=== PATIENT | female | born 1950 | race Caucasian/White ===

== ENCOUNTER 2021-05-06 03:47 | Outpatient (RCR) | payer OTHER, SELFPAY ==
[2021-04-22 08:14] LABS: Abs Immature Grans 0.01 10^3/uL (0.0-0.06); Absolute Basophil Count 0.04 10^3/uL (0.0-0.2); Absolute Eosinophil Count 0.17 10^3/uL (0.0-0.7); Absolute Lymphocyte Count 1.16 10^3/uL (1.2-3.4); Absolute Monocyte Count 0.36 10^3/uL (0.1-0.8); Absolute Neutrophil Count 2.11 10^3/uL (1.2-6.7); Eosinophils % 4.4; HGB 10.5 g/dL (11.2-15.7); Immature Grans % 0.3; Lymphocytes % 30.1; MCH 30.1 pg (27.0-33.0); MCHC 32.8 % (32.0-36.0); MCV 91.7 fL (80-95); MPV 10.1 fL (8.0-11.0); Monocytes % 9.4; Neutrophils % 54.8; Nucleated RBC 0 %; Platelet Count 170 10^3/uL (130-400); RBC 3.49 10^6/uL (3.93-5.22); RDW 13.9 % (11.7-14.6); RDW-SD 46.5 fL; WBC 3.85 10^3/uL (4.4-10.8)
[2021-04-22] MEDS: Normal Saline Flush 10 ML SYR IVP (08:16)
[2021-04-22 08:35] LABS: ALT 22 U/L (14-59); AST 24 U/L (15-37); Albumin 2.6 g/dL (3.4-5.0); Alkaline Phosphatase 84 U/L (46-116); Anion Gap 6.5 mmol/L (3-11); BUN 18 mg/dL (7-18); Bilirubin, Total 0.4 mg/dL (0.2-1.0); CO2 29.5 mmol/L (21.0-32.0); CREATININE 1.1 mg/dL (0.55-1.02); Calcium 8.1 mg/dL (8.5-10.1); Chloride 105 mmol/L (98-107); Estimated GFR 48.69 (mL/min/1.73m2); Glucose 106 mg/dL (74-106); LDH 144 U/L (81-234); Potassium 3.8 mmol/L (3.5-5.1); Sodium 141 mmol/L (136-145); Total Protein 5.2 g/dL (6.4-8.2)
[2021-05-06] MEDS: Normal Saline Flush 10 ML SYR IVP (09:25)
[2021-05-06] MEDS: Heparin 500 UNITS/5 ML SYRINGE (09:25)
[2021-05-06 09:41] LABS: Abs Immature Grans 0.05 10^3/uL (0.0-0.06); Absolute Basophil Count 0.05 10^3/uL (0.0-0.2); Absolute Eosinophil Count 0.12 10^3/uL (0.0-0.7); Absolute Lymphocyte Count 0.63 10^3/uL (1.2-3.4); Absolute Monocyte Count 0.41 10^3/uL (0.1-0.8); Absolute Neutrophil Count 4.78 10^3/uL (1.2-6.7); Basophils % 0.8; HCT 31.9 % (36.0-46.0); HGB 10.4 g/dL (11.2-15.7); Immature Grans % 0.8; Lymphocytes % 10.4; MCH 30.1 pg (27.0-33.0); MCHC 32.6 % (32.0-36.0); MCV 92.5 fL (80-95); MPV 10.3 fL (8.0-11.0); Monocytes % 6.8; Neutrophils % 79.2; Nucleated RBC 0 %; Platelet Count 214 10^3/uL (130-400); RBC 3.45 10^6/uL (3.93-5.22); RDW 14.3 % (11.7-14.6); RDW-SD 47.6 fL; WBC 6.04 10^3/uL (4.4-10.8)
[2021-05-06 10:00] LABS: ALT 15 U/L (14-59); AST 16 U/L (15-37); Albumin 2.9 g/dL (3.4-5.0); Alkaline Phosphatase 92 U/L (46-116); Anion Gap 7.6 mmol/L (3-11); BUN 20 mg/dL (7-18); Bilirubin, Total 0.6 mg/dL (0.2-1.0); CO2 27.4 mmol/L (21.0-32.0); CREATININE 0.9 mg/dL (0.55-1.02); Calcium 8.7 mg/dL (8.5-10.1); Chloride 105 mmol/L (98-107); Glucose 98 mg/dL (74-106); LDH 140 U/L (81-234); Potassium 4.4 mmol/L (3.5-5.1); Sodium 140 mmol/L (136-145); Total Protein 5.8 g/dL (6.4-8.2)
== END 2021-05-10 23:59 | disposition home or self-care (01) ==
LOC: INF 03:47
PROVIDERS: Visit Provider Internal Medicine Hematology & Oncology
DX: C82.18 Follicular lymphoma grade II, lymph nodes of multiple sites (principal); Z45.2 Encounter for adjustment and management of vascular access device
CPT/HCPCS: 36591; 80053; 83615; 85025

== ENCOUNTER 2021-05-20 01:20 | Outpatient (RCR) | payer OTHER, SELFPAY ==
[2021-05-20] MEDS: Normal Saline Flush 10 ML SYR IVP (08:40)
[2021-05-20 08:55] LABS: Abs Immature Grans 0.01 10^3/uL (0.0-0.06); Absolute Basophil Count 0.04 10^3/uL (0.0-0.2); Absolute Eosinophil Count 0.49 10^3/uL (0.0-0.7); Absolute Lymphocyte Count 0.64 10^3/uL (1.2-3.4); Absolute Monocyte Count 0.41 10^3/uL (0.1-0.8); Absolute Neutrophil Count 2.14 10^3/uL (1.2-6.7); Basophils % 1.1; Eosinophils % 13.1; HGB 9.5 g/dL (11.2-15.7); Immature Grans % 0.3; Lymphocytes % 17.2; MCH 30.8 pg (27.0-33.0); MCHC 33.9 % (32.0-36.0); MCV 90.9 fL (80-95); MPV 9.3 fL (8.0-11.0); Neutrophils % 57.3; Nucleated RBC 0 %; Platelet Count 153 10^3/uL (130-400); RBC 3.08 10^6/uL (3.93-5.22); RDW 14.2 % (11.7-14.6); RDW-SD 47.1 fL; WBC 3.73 10^3/uL (4.4-10.8)
[2021-05-20 09:09] LABS: Calcium 8.4 mg/dL (8.5-10.1)
[2021-05-20 09:10] LABS: Albumin 3.1 g/dL (3.4-5.0); Alkaline Phosphatase 72 U/L (46-116); BUN 23 mg/dL (7-18); Bilirubin, Total 0.5 mg/dL (0.2-1.0); CREATININE 0.8 mg/dL (0.55-1.02); Glucose 95 mg/dL (74-106); Total Protein 5.5 g/dL (6.4-8.2)
[2021-05-20 09:11] LABS: ALT 22 U/L (14-59); AST 17 U/L (15-37); Chloride 107 mmol/L (98-107); LDH 156 U/L (81-234); Potassium 3.8 mmol/L (3.5-5.1); Sodium 142 mmol/L (136-145)
== END 2021-06-09 23:59 | disposition home or self-care (01) ==
LOC: INF 01:20
PROVIDERS: Visit Provider Internal Medicine Hematology & Oncology
DX: C82.18 Follicular lymphoma grade II, lymph nodes of multiple sites (principal); Z45.2 Encounter for adjustment and management of vascular access device
CPT/HCPCS: 36591; 80053; 83615; 85025

== ENCOUNTER 2021-06-25 02:16 | Outpatient (RCR) | payer OTHER, SELFPAY ==
[2021-06-17] MEDS: Normal Saline Flush 10 ML SYR IVP (09:21)
[2021-06-17 09:57] LABS: Abs Immature Grans 0.03 10^3/uL (0.0-0.06); Absolute Basophil Count 0.06 10^3/uL (0.0-0.2); Absolute Eosinophil Count 0.14 10^3/uL (0.0-0.7); Absolute Lymphocyte Count 2.96 10^3/uL (1.2-3.4); Absolute Monocyte Count 0.54 10^3/uL (0.1-0.8); Absolute Neutrophil Count 2.47 10^3/uL (1.2-6.7); Eosinophils % 2.3; HCT 26.4 % (36.0-46.0); HGB 8.9 g/dL (11.2-15.7); Immature Grans % 0.5; Lymphocytes % 47.7; MCH 31.4 pg (27.0-33.0); MCHC 33.7 % (32.0-36.0); MCV 93.3 fL (80-95); MPV 9.2 fL (8.0-11.0); Monocytes % 8.7; Neutrophils % 39.8; Nucleated RBC 0 %; Platelet Count 195 10^3/uL (130-400); RBC 2.83 10^6/uL (3.93-5.22); RDW 15.5 % (11.7-14.6); RDW-SD 51.6 fL
[2021-06-17 10:02] LABS: ALT 26 U/L (14-59); AST 22 U/L (15-37); Albumin 3.3 g/dL (3.4-5.0); Alkaline Phosphatase 72 U/L (46-116); Anion Gap 5.3 mmol/L (3-11); BUN 19 mg/dL (7-18); Bilirubin, Total 0.5 mg/dL (0.2-1.0); CO2 28.7 mmol/L (21.0-32.0); CREATININE 0.8 mg/dL (0.55-1.02); Calcium 8.6 mg/dL (8.5-10.1); Chloride 107 mmol/L (98-107); Glucose 105 mg/dL (74-106); LDH 201 U/L (81-234); Sodium 141 mmol/L (136-145); Total Protein 5.6 g/dL (6.4-8.2)
[2021-06-24 09:44] LABS: Abs Immature Grans 0.01 10^3/uL (0.0-0.06); Absolute Basophil Count 0.05 10^3/uL (0.0-0.2); Absolute Eosinophil Count 0.17 10^3/uL (0.0-0.7); Absolute Lymphocyte Count 2.42 10^3/uL (1.2-3.4); Absolute Neutrophil Count 2.05 10^3/uL (1.2-6.7); Eosinophils % 3.3; HGB 8.7 g/dL (11.2-15.7); Immature Grans % 0.2; Lymphocytes % 46.5; MCH 31.9 pg (27.0-33.0); MCHC 33.5 % (32.0-36.0); MCV 95.2 fL (80-95); MPV 9.2 fL (8.0-11.0); Monocytes % 9.6; Neutrophils % 39.4; Nucleated RBC 0 %; Platelet Count 185 10^3/uL (130-400); RBC 2.73 10^6/uL (3.93-5.22); RDW 15.4 % (11.7-14.6); Reticulocyte 3.8 % (0.5-2.4)
[2021-06-24 10:24] LABS: ALT 24 U/L (14-59); AST 18 U/L (15-37); Albumin 3.2 g/dL (3.4-5.0); Alkaline Phosphatase 80 U/L (46-116); Anion Gap 6.5 mmol/L (3-11); BUN 23 mg/dL (7-18); Bilirubin, Total 0.5 mg/dL (0.2-1.0); CO2 28.5 mmol/L (21.0-32.0); Calcium 8.5 mg/dL (8.5-10.1); Chloride 107 mmol/L (98-107); Estimated GFR 54.35 (mL/min/1.73m2); Ferritin 135 ng/mL (8-252); Glucose 94 mg/dL (74-106); LDH 176 U/L (81-234); Potassium 4.1 mmol/L (3.5-5.1); Sodium 142 mmol/L (136-145); Total Protein 5.6 g/dL (6.4-8.2); Vitamin B12 684 pg/mL (193-986)
[2021-06-25] MEDS: Normal Saline Flush 10 ML SYR IVP (10:45)
[2021-06-25 11:24] LABS: TSH 0.63 uIU/mL (0.36-3.74)
[2021-06-25 12:25] LABS: Iron 114 ug/dL (50-170); Total Iron Binding Capacity 294 ug/dL (250-450); Transferrin Sat 39 % (15-50)
[2021-06-26 10:07] LABS: Haptoglobin 85 mg/dL (32-197)
[2021-06-26 13:12] LABS: Albumin 68.8 % (55.8-66.1); Total Protein 5.8 g/dL (6.3-8.2)
== END 2021-07-10 23:59 | disposition home or self-care (01) ==
LOC: INF 02:16
PROVIDERS: Visit Provider Internal Medicine Hematology & Oncology
DX: C82.18 Follicular lymphoma grade II, lymph nodes of multiple sites (principal); J90 Pleural effusion, not elsewhere classified
CPT/HCPCS: 36591; 80053; 82607; 82728; 82746; 83010; 83540; 83550; 83615; 84165; 84443; 85025; 85045; 86880

== ENCOUNTER 2021-07-22 01:43 | Outpatient (RCR) | payer OTHER, SELFPAY ==
[2021-07-22 08:54] LABS: Abs Immature Grans 0.03 10^3/uL (0.0-0.06); Absolute Basophil Count 0.04 10^3/uL (0.0-0.2); Absolute Eosinophil Count 0.49 10^3/uL (0.0-0.7); Absolute Lymphocyte Count 0.57 10^3/uL (1.2-3.4); Absolute Monocyte Count 0.51 10^3/uL (0.1-0.8); Absolute Neutrophil Count 3.91 10^3/uL (1.2-6.7); Basophils % 0.7; Eosinophils % 8.8; HCT 25.1 % (36.0-46.0); HGB 8.7 g/dL (11.2-15.7); Immature Grans % 0.5; Lymphocytes % 10.3; MCH 33.2 pg (27.0-33.0); MCHC 34.7 % (32.0-36.0); MCV 95.8 fL (80-95); Monocytes % 9.2; Neutrophils % 70.5; Nucleated RBC 0 %; Platelet Count 172 10^3/uL (130-400); RBC 2.62 10^6/uL (3.93-5.22); RDW 14.1 % (11.7-14.6); RDW-SD 48.8 fL; WBC 5.55 10^3/uL (4.4-10.8)
[2021-07-22] MEDS: Normal Saline Flush 10 ML SYR IVP (08:57)
[2021-07-22 09:20] LABS: ALT 21 U/L (14-59); AST 13 U/L (15-37); Albumin 3.3 g/dL (3.4-5.0); Alkaline Phosphatase 87 U/L (46-116); Anion Gap 8.9 mmol/L (3-11); BUN 22 mg/dL (7-18); Bilirubin, Total 0.6 mg/dL (0.2-1.0); CO2 27.1 mmol/L (21.0-32.0); CREATININE 0.9 mg/dL (0.55-1.02); Chloride 104 mmol/L (98-107); Glucose 108 mg/dL (74-106); Potassium 3.8 mmol/L (3.5-5.1); Sodium 140 mmol/L (136-145); Total Protein 6.1 g/dL (6.4-8.2)
[2021-07-22 09:30] LABS: LDH 164 U/L (81-234)
== END 2021-08-10 23:59 | disposition home or self-care (01) ==
LOC: INF 01:43
PROVIDERS: Visit Provider Internal Medicine Hematology & Oncology
DX: C82.18 Follicular lymphoma grade II, lymph nodes of multiple sites (principal)
CPT/HCPCS: 36591; 80053; 83615; 85025

== ENCOUNTER 2021-08-05 01:03 | Outpatient (RCR) | payer OTHER, SELFPAY ==
[2021-07-16] MEDS: Heparin 500 UNITS/5 ML SYRINGE IV (10:12)
[2021-07-16] MEDS: Normal Saline Flush 10 ML SYR IVP (10:12)
[2021-07-16 10:37] LABS: Abs Immature Grans 0.03 10^3/uL (0.0-0.06); Absolute Basophil Count 0.04 10^3/uL (0.0-0.2); Absolute Eosinophil Count 0.29 10^3/uL (0.0-0.7); Absolute Monocyte Count 0.61 10^3/uL (0.1-0.8); Basophils % 0.7; HCT 27.2 % (36.0-46.0); HGB 9.1 g/dL (11.2-15.7); Immature Grans % 0.5; Lymphocytes % 12.1; MCH 32.3 pg (27.0-33.0); MCHC 33.5 % (32.0-36.0); MCV 96.5 fL (80-95); MPV 9.5 fL (8.0-11.0); Monocytes % 10.6; Neutrophils % 71.1; Nucleated RBC 0 %; Platelet Count 227 10^3/uL (130-400); RBC 2.82 10^6/uL (3.93-5.22); RDW 14.4 % (11.7-14.6); RDW-SD 50.4 fL; WBC 5.77 10^3/uL (4.4-10.8)
[2021-07-16 10:51] LABS: ALT 19 U/L (14-59); AST 14 U/L (15-37); Albumin 3.4 g/dL (3.4-5.0); Alkaline Phosphatase 94 U/L (46-116); Anion Gap 9.5 mmol/L (3-11); BUN 17 mg/dL (7-18); Bilirubin, Total 0.4 mg/dL (0.2-1.0); CO2 27.5 mmol/L (21.0-32.0); CREATININE 0.9 mg/dL (0.55-1.02); Calcium 8.9 mg/dL (8.5-10.1); Chloride 104 mmol/L (98-107); Glucose 106 mg/dL (74-106); LDH 161 U/L (81-234); Sodium 141 mmol/L (136-145); Total Protein 6.2 g/dL (6.4-8.2)
== END 2021-08-10 23:59 | disposition home or self-care (01) ==
LOC: INF 01:03
PROVIDERS: Visit Provider Internal Medicine Hematology & Oncology
DX: C82.18 Follicular lymphoma grade II, lymph nodes of multiple sites (principal); Z45.2 Encounter for adjustment and management of vascular access device
CPT/HCPCS: 36591; 80053; 83615; 85025

== ENCOUNTER 2021-08-19 08:05 | Outpatient (RCR) | payer OTHER, SELFPAY ==
[2021-08-19] MEDS: Normal Saline Flush 10 ML SYR IVP (08:35)
[2021-08-19 08:54] LABS: Abs Immature Grans 0.01 10^3/uL (0.0-0.06); Absolute Basophil Count 0.04 10^3/uL (0.0-0.2); Absolute Eosinophil Count 0.17 10^3/uL (0.0-0.7); Absolute Lymphocyte Count 0.75 10^3/uL (1.2-3.4); Absolute Monocyte Count 0.53 10^3/uL (0.1-0.8); Absolute Neutrophil Count 2.76 10^3/uL (1.2-6.7); Basophils % 0.9; HCT 26.5 % (36.0-46.0); HGB 8.8 g/dL (11.2-15.7); Immature Grans % 0.2; Lymphocytes % 17.6; MCHC 33.2 % (32.0-36.0); MCV 96.4 fL (80-95); MPV 9.5 fL (8.0-11.0); Monocytes % 12.4; Neutrophils % 64.9; Nucleated RBC 0 %; Platelet Count 169 10^3/uL (130-400); RBC 2.75 10^6/uL (3.93-5.22); RDW 13.3 % (11.7-14.6); RDW-SD 46.2 fL; WBC 4.26 10^3/uL (4.4-10.8)
[2021-08-19 09:06] LABS: ALT 29 U/L (14-59); AST 20 U/L (15-37); Albumin 3.5 g/dL (3.4-5.0); Alkaline Phosphatase 95 U/L (46-116); Anion Gap 8.7 mmol/L (3-11); BUN 26 mg/dL (7-18); Bilirubin, Total 0.6 mg/dL (0.2-1.0); CO2 27.3 mmol/L (21.0-32.0); CREATININE 0.9 mg/dL (0.55-1.02); Chloride 105 mmol/L (98-107); Glucose 104 mg/dL (74-106); LDH 175 U/L (81-234); Potassium 3.9 mmol/L (3.5-5.1); Sodium 141 mmol/L (136-145); Total Protein 6.1 g/dL (6.4-8.2)
== END 2021-09-07 23:59 | disposition home or self-care (01) ==
LOC: INF 08:05
PROVIDERS: Nurse Practitioner Family; Visit Provider Internal Medicine Hematology & Oncology
DX: C82.18 Follicular lymphoma grade II, lymph nodes of multiple sites (principal); Z45.2 Encounter for adjustment and management of vascular access device
CPT/HCPCS: 36591; 80053; 83615; 85025

== ENCOUNTER 2021-09-16 01:39 | Outpatient (RCR) | payer OTHER, SELFPAY ==
[2021-09-16] MEDS: Normal Saline Flush 10 ML SYR IVP (08:14)
[2021-09-16 08:27] LABS: Abs Immature Grans 0.02 10^3/uL (0.0-0.06); Absolute Basophil Count 0.04 10^3/uL (0.0-0.2); Absolute Eosinophil Count 0.21 10^3/uL (0.0-0.7); Absolute Lymphocyte Count 1.15 10^3/uL (1.2-3.4); Absolute Monocyte Count 0.59 10^3/uL (0.1-0.8); Absolute Neutrophil Count 2.15 10^3/uL (1.2-6.7); HCT 26.4 % (36.0-46.0); HGB 9.1 g/dL (11.2-15.7); Immature Grans % 0.5; Lymphocytes % 27.6; MCH 33.2 pg (27.0-33.0); MCHC 34.5 % (32.0-36.0); MCV 96.4 fL (80-95); MPV 9.4 fL (8.0-11.0); Monocytes % 14.2; Neutrophils % 51.7; Nucleated RBC 0 %; Platelet Count 171 10^3/uL (130-400); RBC 2.74 10^6/uL (3.93-5.22); WBC 4.16 10^3/uL (4.4-10.8)
[2021-09-16 08:39] LABS: ALT 22 U/L (14-59); AST 16 U/L (15-37); Albumin 3.6 g/dL (3.4-5.0); Alkaline Phosphatase 104 U/L (46-116); Anion Gap 10.9 mmol/L (3-11); BUN 22 mg/dL (7-18); Bilirubin, Total 0.5 mg/dL (0.2-1.0); CO2 27.1 mmol/L (21.0-32.0); Calcium 9.1 mg/dL (8.5-10.1); Chloride 106 mmol/L (98-107); Estimated GFR 54.35 (mL/min/1.73m2); Glucose 110 mg/dL (74-106); LDH 180 U/L (81-234); Sodium 144 mmol/L (136-145); Total Protein 6.2 g/dL (6.4-8.2)
== END 2021-10-08 23:59 | disposition home or self-care (01) ==
LOC: INF 01:39
PROVIDERS: Nurse Practitioner Family; Visit Provider Internal Medicine Hematology & Oncology
DX: C82.18 Follicular lymphoma grade II, lymph nodes of multiple sites (principal)
CPT/HCPCS: 36591; 80053; 83615; 85025

== ENCOUNTER 2021-10-26 02:38 | Outpatient (CLI) | payer OTHER, SELFPAY ==
[2021-10-26 11:58] LABS: Source Nasal/Nares
[2021-10-26 14:13] LABS: COVID-19 PCR Negative (Negative)
== END 2021-10-26 02:39 | disposition home or self-care (01) ==
PROVIDERS: Visit Provider Internal Medicine Hematology & Oncology
DX: Z20.822 Contact with and (suspected) exposure to COVID-19 (principal); C82.18 Follicular lymphoma grade II, lymph nodes of multiple sites
CPT/HCPCS: 87635

== ENCOUNTER 2021-10-28 02:11 | Outpatient (RCR) | payer OTHER, SELFPAY | END 2021-11-07 23:59 | disposition home or self-care (01) | LOC: INF 02:11 | PROVIDERS: Visit Provider Internal Medicine Hematology & Oncology | DX: C82.90 Follicular lymphoma, unspecified, unspecified site (principal); Z29.8 Encounter for other specified prophylactic measures; D84.9 Immunodeficiency, unspecified | CPT/HCPCS: 96372; Q0221 ==

== ENCOUNTER 2021-12-09 03:44 | Outpatient (RCR) | payer OTHER, SELFPAY ==
[2021-12-09] MEDS: Normal Saline Flush 10 ML SYR IVP (09:24)
[2021-12-09] MEDS: Heparin 500 UNITS/5 ML SYRINGE IV (09:24)
[2021-12-09 09:37] LABS: Abs Immature Grans 0.05 10^3/uL (0.0-0.06); Absolute Basophil Count 0.02 10^3/uL (0.0-0.2); Absolute Lymphocyte Count 1.58 10^3/uL (1.2-3.4); Basophils % 0.3; HCT 31.9 % (36.0-46.0); HGB 10.9 g/dL (11.2-15.7); Immature Grans % 0.7; Lymphocytes % 22.1; MCH 32.9 pg (27.0-33.0); MCHC 34.2 % (32.0-36.0); MCV 96 fL (80-95); Monocytes % 8.4; Neutrophils % 68.5; Platelet Count 214 10^3/uL (130-400); RBC 3.31 10^6/uL (3.93-5.22); RDW 12.6 % (11.7-14.6); WBC 7.15 10^3/uL (4.4-10.8)
[2021-12-09 10:10] LABS: ALT 32 U/L (14-59); AST 15 U/L (15-37); Albumin 3.8 g/dL (3.4-5.0); Alkaline Phosphatase 96 U/L (46-116); Anion Gap 8.4 mmol/L (3-11); BUN 21 mg/dL (7-18); Bilirubin, Total 0.6 mg/dL (0.2-1.0); CO2 26.6 mmol/L (21.0-32.0); Calcium 8.7 mg/dL (8.5-10.1); Chloride 104 mmol/L (98-107); Estimated GFR 54.35 (mL/min/1.73m2); Ferritin 55 ng/mL (8-252); Glucose 111 mg/dL (74-106); Iron 54 ug/dL (50-170); LDH 151 U/L (81-234); Potassium 3.9 mmol/L (3.5-5.1); Sodium 139 mmol/L (136-145); Total Iron Binding Capacity 346 ug/dL (250-450); Total Protein 6.5 g/dL (6.4-8.2)
== END 2022-01-07 23:59 | disposition home or self-care (01) ==
LOC: INF 03:44
PROVIDERS: Visit Provider Internal Medicine Hematology & Oncology
DX: Z45.2 Encounter for adjustment and management of vascular access device (principal); C82.18 Follicular lymphoma grade II, lymph nodes of multiple sites
CPT/HCPCS: 36591; 80053; 82728; 83540; 83550; 83615; 85025

== ENCOUNTER 2022-02-19 00:55 | Outpatient (RCR) | payer OTHER, SELFPAY ==
[2022-02-19] MEDS: Heparin 500 UNITS/5 ML SYRINGE IV (10:19)
[2022-02-19] MEDS: Normal Saline Flush 10 ML SYR IVP (10:19)
[2022-02-19 10:34] LABS: Abs Immature Grans 0.04 10^3/uL (0.0-0.06); Absolute Basophil Count 0.04 10^3/uL (0.0-0.2); Absolute Lymphocyte Count 1.05 10^3/uL (1.2-3.4); Absolute Monocyte Count 0.45 10^3/uL (0.1-0.8); Basophils % 1.1; HCT 31.7 % (36.0-46.0); HGB 10.7 g/dL (11.2-15.7); Immature Grans % 1.1; Lymphocytes % 29.7; MCH 32.5 pg (27.0-33.0); MCHC 33.8 % (32.0-36.0); MCV 96 fL (80-95); MPV 9.9 fL (8.0-11.0); Monocytes % 12.7; Neutrophils % 55.4; Platelet Count 200 10^3/uL (130-400); RBC 3.29 10^6/uL (3.93-5.22); RDW 13.1 % (11.7-14.6); RDW-SD 46.6 fL; WBC 3.53 10^3/uL (4.4-10.8)
[2022-02-19 10:36] LABS: Absolute Neutrophil Count 1.96 10^3/uL (1.2-6.7)
[2022-02-19 11:04] LABS: ALT 26 U/L (14-59); AST 20 U/L (15-37); Albumin 3.8 g/dL (3.4-5.0); Alkaline Phosphatase 81 U/L (46-116); Anion Gap 9.6 mmol/L (3-11); BUN 22 mg/dL (7-18); Bilirubin, Total 0.5 mg/dL (0.2-1.0); CO2 28.4 mmol/L (21.0-32.0); CREATININE 0.8 mg/dL (0.55-1.02); Calcium 9.2 mg/dL (8.5-10.1); Chloride 102 mmol/L (98-107); Ferritin 57 ng/mL (8-252); Glucose 151 mg/dL (74-106); Sodium 140 mmol/L (136-145); Total Protein 6.4 g/dL (6.4-8.2)
[2022-02-19 11:10] LABS: Iron 82 ug/dL (50-170); Total Iron Binding Capacity 335 ug/dL (250-450); Transferrin Sat 24 % (15-50)
[2022-02-19 11:25] LABS: LDH 235 U/L (81-234)
== END 2022-03-10 23:59 | disposition home or self-care (01) ==
LOC: INF 00:55
PROVIDERS: Visit Provider Internal Medicine Hematology & Oncology
DX: Z45.2 Encounter for adjustment and management of vascular access device (principal); C82.90 Follicular lymphoma, unspecified, unspecified site
CPT/HCPCS: 36591; 80053; 82728; 83540; 83550; 83615; 85025

== ENCOUNTER 2022-04-21 02:08 | Outpatient (RCR) | payer OTHER, SELFPAY ==
[2022-04-21] MEDS: Normal Saline Flush 10 ML SYR IVP (09:20)
[2022-04-21 09:37] LABS: Abs Immature Grans 0.03 10^3/uL (0.0-0.06); Absolute Basophil Count 0.03 10^3/uL (0.0-0.2); Absolute Eosinophil Count 0.16 10^3/uL (0.0-0.7); Absolute Lymphocyte Count 1.46 10^3/uL (1.2-3.4); Absolute Monocyte Count 0.56 10^3/uL (0.1-0.8); Basophils % 0.8; Eosinophils % 4.1; HCT 32.1 % (36.0-46.0); HGB 10.8 g/dL (11.2-15.7); Immature Grans % 0.8; MCH 32.2 pg (27.0-33.0); MCHC 33.6 % (32.0-36.0); MCV 96 fL (80-95); Monocytes % 14.2; Neutrophils % 43.1; Platelet Count 204 10^3/uL (130-400); RBC 3.35 10^6/uL (3.93-5.22); RDW 12.4 % (11.7-14.6); RDW-SD 43.2 fL; WBC 3.95 10^3/uL (4.4-10.8)
[2022-04-21 10:04] LABS: ALT 26 U/L (14-59); AST 24 U/L (15-37); Albumin 3.9 g/dL (3.4-5.0); Alkaline Phosphatase 82 U/L (46-116); Anion Gap 9.5 mmol/L (3-11); BUN 30 mg/dL (7-18); Bilirubin, Total 0.5 mg/dL (0.2-1.0); CO2 27.5 mmol/L (21.0-32.0); Calcium 8.9 mg/dL (8.5-10.1); Chloride 103 mmol/L (98-107); Estimated GFR 59.12 (mL/min/1.73m2); Glucose 111 mg/dL (74-106); LDH 223 U/L (81-234); Potassium 3.8 mmol/L (3.5-5.1); Sodium 140 mmol/L (136-145); Total Protein 6.5 g/dL (6.4-8.2)
[2022-04-21 10:27] LABS: Ferritin 49 ng/mL (8-252)
[2022-04-21 10:30] LABS: Iron 85 ug/dL (50-170); Total Iron Binding Capacity 359 ug/dL (250-450); Transferrin Sat 24 % (15-50)
== END 2022-05-10 23:59 | disposition home or self-care (01) ==
LOC: INF 02:08
PROVIDERS: Visit Provider Internal Medicine Hematology & Oncology
DX: C82.18 Follicular lymphoma grade II, lymph nodes of multiple sites (principal); Z45.2 Encounter for adjustment and management of vascular access device
CPT/HCPCS: 36591; 80053; 82728; 83540; 83550; 83615; 85025

== ENCOUNTER 2022-05-21 00:59 | Outpatient (RCR) | payer OTHER, SELFPAY ==
--- OUTSIDE RECORDS SUMMARY | 2022-05-21 01:01 | XMS_ITS | Encounter Summary ---
:1950 Author Organization [facility] Address [address] [place] [address] Care Team Providers Name Role Phone Jared Anna MD Primary Care Provider Encounter Details Date Type Department Care Team Description 06/25/2021 Lab Requisition [facility] Outr Resulting Lab, Pathology & Laboratory Provider [facility] [address] [place] [address] Social History Tobacco Use Types Packs/Day Years Used Date Smoking Tobacco: Never Assessed Sex Assigned at Date Recorded Not on file documented as of this encounter Plan of Treatment Not on filedocumented as of this encounter Procedures Procedure Name Priority Date/Time Associated Comments Diagnosis SPEP, INCLUDES Today 06/25/2021 10:35 Results f or this QUANTITATION OF EST procedure ar e in MONOCLONAL SPIKE the results PERFORMABLE section. SPEP, INCLUDES Routine 06/25/2021 10:35 Results f or this QUANTITATION OF EST procedure ar e in MONOCLONAL SPIKE the results section. PROTEIN, TOTAL Today 06/25/2021 10:35 EST HAPTOGLOBIN Routine 06/25/2021 10:35 Results for this EST procedure are i n the results section. documented in this encounter Results (ABNORMAL) SPEP, INCLUDES QUANTITATION OF MONOCLONAL SPIKE PERFORMABLE (06/25/2021 10:35 EST) Component Value Ref Test Analysis Performed At [facility] Range Method Time Signature Albumin % 68.8 (H) 55.8 - 06/26/2021 [facility] 66.1 % 13:06 [facility] Alpha-1 % 5.5 (H) 2.9 - 06/26/2021 [facility] 4.9 % 13:06 [facility] Alpha-2 % 11.1 7.1 - 06/26/2021 [facility] 11.8 % 13:06 [facility] Beta % 11.3 8.4 - 06/26/2021 [facility] 13.1 % 13:06 [facility] SERVICES Gamma % 3.3 (L) 11.1 - 06/26/2021 [facility] 18.8 % 13:06 [facility]OR[facility]ORY SERVICES SPEP Comment No apparent 06/26/2021 [facility] monoclonal protein 13:06 [facility] seen on serum LABORATORY electrophoresis SERVICES Comment: See scanned/supplementary repor t. Total Protein 5.8 (L) 6.3 - 8.2 g/dL 06/26/2021 13:06 [facility] LABORATORY SERVICES Specimen Anatomical Collection Method Collection Time Receive d Time (Source) Location / / Volume Laterality Blood VENOUS BLOOD / 06/25/2021 10:35 1 Unknown EST 21:23 EST Narrative This result has an attachment that is no t available. Provider Outr Resulting Lab CHEMISTRY & BLOOD GAS ORDE ARCHIE Performing Organization Address City/[facility]/ZIP Code Phon e Number [facility] [address] [place] [address] SERVICES PROTEIN, TOTAL (06/25/2021 10:35 EST) Specimen Anatomical Collection Method Collection Time Receive d Time (Source) Location / / Volume Laterality Blood VENOUS BLOOD / 06/25/2021 10:35 1 Unknown EST 21:23 EST Provider Outr Resulting Lab CHEMISTRY & BLOOD GAS ORDE ARCHIE Performing Organization Address City/[facility]/ZIP Code Phon e Number [facility] [address] [place] [address] SERVICES HAPTOGLOBIN (06/25/2021 10:35 EST) P athologist Signature Haptoglobin 85 32 - 197 06/26/2021 [facility] MEDICAL mg/dL 10:02 [facility] LABORATORY SERVICES Specimen Anatomical Collection Method Collection Time Receive d Time (Source) Location / / Volume Laterality Blood VENOUS BLOOD / 06/25/2021 10:35 1 Unknown EST 21:23 EST Provider Outr Resulting Lab CHEMISTRY & BLOOD GAS ORDE ARCHIE Performing Organization Address City/[facility]/ZIP Code Phon e Number [facility] [address] [place] [address] SERVICES documented in this encounter Visit Diagnoses Not on filedocumented in this encounter Care Teams Plant Control Operator Relationship Specialty Start Date End Date Jared Anna MD PCP - General 07/11/19 documented as of this encounter
--- OUTSIDE RECORDS SUMMARY | 2022-05-21 01:01 | XMS_ITS | Encounter Summary ---
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 [address] Referral ID Status Reason Start Date Expiration Date Visits Requ ested Visits Authorized [id number] Closed 04/22/2021 12/18/2021 18 18 Encounter Details Date Type Department Care Team Description 09/16/2021 Infusion Hematology Oncology at [facility] rico 2 follicular lymphoma [facility] of lymph nodes of [address] [phone] Social History Tobacco Use Types Packs/Day Years Used Date Former Smoker Cigarettes 0.25 10 Quit: 1989 Smokeless Tobacco: Never Used Alcohol Use Standard Drinks/Week Comments Yes 0 (1 standard drink = 0.6 oz pure Glass of wine 2-3 nights a week alcohol) Alcohol Habits Answer Date Recorded How often do you have a drink Not asked containing alcohol? How many drinks containing alcohol do Not asked you have on a typical day when you are drinking? How often do you have six or more Not asked drinks on one occasion? Comment: Glass of wine 2-3 nights a week 02/24/20 21 Sex Assigned at Date Recorded Not on file documented as of this encounter Progress Notes Leticia Villela RN - 09/16/2021 11:00 AM EST INFUSION THERAPY ADMINISTRATION NOTES DIAGNOSIS: Follicular Lymphoma CYCLE #: 6 Day 1 REASON FOR VISIT: Rituxan/Bendamustine SUBJECTIVE Brian offers no complaints. She was seen in clinic by Dr. Monique prior to coming to infusion. OBJECTIVE LAB DATA: WBC 4.16, HGB 9.1, HCT 26.4, PLT 171, ANC 2.15, BUN 22, Cr 1.0 IV Access: Mediport Right Chest, accessed at [facility] for labs. Flushed with 20cc NS and 500 units Heparin and left accessed for C6D2 tomorrow. Pre administration: Chemotherapy orders independently verified for drug name, route, and dosage per patient's height, weight and BSA by Leticia Villela, MARI and pharmacist on-site. Rituxan - given at Rapid Rate. REACTIONS (DESCRIPTION, TIME, INTERVENTION AND EFFECTIVENESS) none ASSESSMENT Ms. Bliss was awake, alert and tolerated treatment well. PLAN Return to clinic tomorrow for C6D2. Patient was reminded to call in the interim with any questions/concerns. documented in this encounter Plan of Treatment Upcoming Encounters Date Type Specialty Care Team Description 06/16/2022 Office Visit Hematology and Oncology Jackie Dillon, [facility] H[facility]OLOGY/[facility] [place] [place] [address] (Wo rk) 06/16/2022 Infusion Hematology and Oncology documented as of this encounter Visit Diagnoses Diagnosis 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 documented in this encounter Administered Medications Inactive Administered Medications - up to 3 most recent administrations Medication Order MAR Action Action Date Dose Rate Site acetaminophen (Tylenol) tablet Given 09/16/2021 10:00 AM EST 650 mg 650 mg 650 mg, Oral, ONCE, 1 dose, On Tue09/16/21 at 1000, Administer prior to riTUXimab., Routine bendamustine (Bendeka) 173 mg in New Bag 09/16/2021 12:[address] 173 mg 341.5 mL/hr sodium chloride 0.9% 56.92 mL infusion 173 mg (rounded from 172.8 mg = 90 mg/m2/dose ? 1.92 m2 Treatment Plan BSA from Recorded weight), Intravenous, ONCE, 1 dose, On Tue09/16/21 at 1100, Administer over 10 Minutes, The resulting final concentration of bendamustine in the infusion bag should be between 1.85 - 5.6 mg/mL. Warning Vesicant/Irritant Medication , This agent is restricted to outpatient use. Is this drug being given as an outpatient? Yes dexamethasone (Decadron) injection 10 mg Given 09/16/2021 10:05 AM EST 10 mg 10 mg, Intravenous, ONCE, 1 dose, On Tue09/16/21 at 1000, Administer prior to riTUXimab diphenhydrAMINE (Benadryl) capsule 25 mg Given 09/16/2021 10:00 AM EST 25 mg 25 mg, Oral, ONCE, 1 dose, On Tue09/16/21 at 1000, Routine heparin (pf) (porcine) (100 units/mL) Given 09/16/2021 12:36 PM EST 500 Units flush 5 mL syringe 500 Units 500 Units, Intravenous, ONCE PRN, Starting on Tue09/16/21 at 0938, Until Tue09/16/21 at 1447, Line Care, Refer to Intravenous (IV) Procedure: Accessing Implanted Vascular Access Devices (574) procedure and/or Intravenous (IV) Job Aid: Adult Flushing & Catheter Care (1840) job aid for additional information regarding guidelines and administration., Routine palonosetron (Aloxi) (0.05 mg/mL) injection Given 03/2022 10:06 AM EST 0.25 mg 0.25 mg 0.25 mg, Intravenous, ONCE, 1 dose, On Tue09/16/21 at 1000, Administer over 30 seconds., Routine riTUXimab-pvvr (Ruxience) 700 mg in sodium New Bag 09/16 10:43 AM EST 700 mg chloride 0.9% 350 mL infusion (malignant indication) 700 mg, Intravenous, ONCE, 1 dose, On Tue09/16/21 at 1100, Administer Per Protocol., Patient is a candidate for rapid infusion riTUXimab? No, Comments (complete to provide additional information): OK to increase rate if prior dose tolerated sodium chloride 0.9 % (flush) (BD PosiFlush Given 03/2022 12:36 PM EST 20 mLs Normal Saline 0.9) flush 5-20 mL 5-20 mL, Intravenous, EVERY 1 MIN PRN, Starting on Tue09/16/21 at 0939, Until Tue09/16/21 at 1447, Line Care, Flush pertains to all indwelling lines. Flush per protocol found in the job aid using the link provided on this medication record. Refer to Intravenous (IV) Job Aid: Adult Flushing & Catheter Care (6956) job aid for additional information regarding guidelines and administration., Routine sodium chloride 0.9% infusion New Bag 09/16/2021 10:06 AM EST 150 mL/hr 150 mL/hr 150 mL/hr, Intravenous, CONTINUOUS, Starting on Tue09/16/21 at 1000, Until Tue09/16/21 at 1447 documented in this encounter Care Teams Parts Cleaner Relationship Specialty Start Date End Date None PCP - General 07/07/21 10/18/21 None documented as of this encounter
--- OUTSIDE RECORDS SUMMARY | 2022-05-21 01:01 | XMS_ITS | Encounter Summary ---
:1950 Author Organization [place] [place] [address] Care Team Providers Name Role Phone HeathSonali Yvette CELESTE Primary Care Provider Encounter Details Date Type Department Care Team Description 12/28/2021 Orders [facility] [place] [phone] HEMATOLOGY/ONCOLOGY [phone] DEPT. [place], [place] [address] (Wo rk) Social History Tobacco Use Types Packs/Day Years [...] as of this encounter Plan of Treatment Upcoming Encounters Date Type Specialty Care Team Description 06/16/2022 Office Visit Hematology and Oncology Jackie Dillon APRN [facility] HEMATOLOGY/ONCOL SHADIA DEPT. [place], [place] [address] (Wo rk) 06/16/2022 Infusion Hematology and Oncology documented as of this encounter Visit Diagnoses Not on filedocumented in this encounter Care Teams Rn Hospice Relationship Specialty Start Date End Date Sonali Joe APRN PCP - General Family Medicine 10/19/21 [address] [place] [address] documented as of this encounter
--- OUTSIDE RECORDS SUMMARY | 2022-05-21 01:01 | XMS_ITS | Encounter Summary ---
:[address] [facility] Address [address] [place] [address] Care Team Providers Name Role Phone Jared Anna MD Primary Care Provider Encounter Details Date Type Department Care Team Description 09/06/2019 Lab Requisition [facility] Brenda Chu enlarged Pathology & R, lymph nodes Laboratory Medicine [address] [place], [place] [address] [facility] [phone] [place] [address] Social History Tobacco Use Types Packs/Day Years Used Date Smoking Tobacco: Never Assessed Sex Assigned at Date Recorded Not on file documented as of this encounter Plan of Treatment Not on filedocumented as of this encounter Procedures Procedure Name Priority Date/Time Associated Diagnosis Comme nts SURGICAL PATHOLOGY Today 09/06/2019 11:15 Localized enlarged Results for this EST lymph nodes procedure are i n the results section. documented in this encounter Results SURGICAL PATHOLOGY (09/06/2019 11:15 EST) Component Value Ref Test Analysis Performed At [facility] Range Method Time Signature Final LYMPH NODE, SUPRACLAVICULAR, BIOPSY: 09/2019 [facility] MED[facility] Electronically Diagnosis - Follicular lymphoma, grade 1-2 (low grade). See comm ent. 12:35 EST CENTER signed by LABORATORY Lakesha Saldaña MD on 09/11/2019 a t 1235 Diagnosis The findings are 09/11/2019 [facility] MEDICAL Comment those of a lymph 12:35 EST CENTER node with LABORATORY increased SERVICES follicles that do not exhibit polarity. Some are increased in size, and few coalesce. The follicles are composed of small centrocytes, scattered T-lymphocytes, and few larger centroblasts. There are foci with increased centroblasts and increased proliferation by Ki67 staining, however, the overall lesion falls short of a higher follicular lymphoma. Flow cytometry [id number] supports the clonal interpretation and follicular subtype (CD10 positive.) Ancillary Immunoperoxidase stains were performed on this case to further characterize the lesion. 09/11/2019 [facility] MEDICAL Studies ANTIBODY(CLONE)(BLOCK):RESULT 12:35 [facility] CENTER CD3 (SP7, [employer]) (A3): Highlights background T-c ell LABORATORY PAX-5 (1EW, Leica) (A3): Highlights neoplastic cells SERVICES BCL-2 Oncoprotein (124, Brusly) (A3): Positive in neoplasti c cells Ki67 (MIB-1) (K2, Leica) (A3 ): Varies, up to strongly positive in 40% of cells, but averages 10% NOTE: One or more of the re agents used in immunoperoxidase testing in this case may not have been cleared or approved by the U.S. Food and Drug Administration (FDA). The FDA has determined that such cl earance or approval is not n ecessary. These tests are used for clinical purposes. They should not be regarded as investigational or for research. These reagents' performance characteristics have been de termined by [facility] and/or by the referring laboratory. The positive and negative controls worked appropriately. If immunoperoxidase staining has been performed on alcoh ol fixed cytology specimens, which has not been fully validated, the assays should be interpreted with caution and correlated with clinical data. This laboratory is certified under the Clinical Laborato ry Improvement Amendments of 1988 (CLIA-88) as qualified to perform high complexity clinical laboratory testing. Clinical None provided 09/11/2019 [facility] MEDICAL History 12:35 [facility] LABORATORY SERVICES Attestation There was 09/11/2019 [facility] MEDICAL Elect ronically significant 12:35 [facility] signed b y resident/fellow LABORATORY Ildefonso Ahuja involvement in the SERVICES MD Tima on diagnostic 09/11/2019 at 1235 evaluation of this case. By the signature below, the attending physician certifies that they have personally conducted a gross and/or microscopic examination of the described specimens and rendered or confirmed the above diagnosis. Gross Received in formalin silverio d with proper patient identification (initials R, A) and supraclavicular mass are multiple fragments of lobulated yellow adipose tissue (1.5 g, 2.6 x 1.8 x 1.0 cm in aggreg [facility] MEDICAL Description ate). Sectioning reveals toney -white, homogenous to lobulated yellow cut surfaces. The specimen is entirely submitted in A 1-A3. 12:35 EST CENTER LABORATORY Ely Yoli 09/07/2019 7:47 S THONG Resident/Mary Roach, 09/11/2019 [facility] Luis DOW w: 12:35 EST CENTER LABORATORY SERVICES Scanned Images 09/11/2019 [facility] MEDICAL 12:35 [facility] CENTER LABORATORY SERVICES Specimen Anatomical Collection Method Collection Time Receive d Time (Source) Location / / Volume Laterality Tissue SOFT TISSUE / 09/06/2019 11:15 09/06/2019 Unknown EST 23:24 EST Brenda Chu MD PATHOLOGY ORDERABLES Performing Organization Address City/State/ZIP Code Phon e Number [facility] [address] [place] [address] SERVICES documented in this encounter Visit Diagnoses Diagnosis Localized enlarged lymph nodes Enlargement of lymph nodes documented in this encounter Care Teams Tire Finisher Relationship Specialty Start Date End Date Jared Anna MD PCP - General 07/11/19 documented as of this encounter
--- OUTSIDE RECORDS SUMMARY | 2022-05-21 01:01 | XMS_ITS | Encounter Summary ---
:1950 Author Organization [facility] [place] [address] Care Team Providers Name Role Phone Heath Sonali Yvette CELESTE Primary Care Provider Reason for Referral Consultation (Routine) - Authorized Specialty Diagnoses / Procedures Referred By Contact Refer red To Contact Diagnoses Recurrent UTI (urinary tract infection) Jackie Dillon APRN [facility] HEMATOLOGY/[place] [address] Referral ID Status Reason Start Date Expiration Visits Visits Date Requested Authorized [id number] Authorized Consult, 03/04/2022 08/31/2022 1 1 Test & Treat Reason for Visit Reason Comments Follow-up Encounter Details Date Type Department Care Team Description 02/24/2022 Office Visit Hematology/Oncology Jackie Dillon, Dina keller, unspecified type; at [facility] Recurrent UTI (urinary tract infection) [address] [place] [address] HEMATOLOGY/ONCOLOG [phone] Y DEPT. [place], [place] [address] Social History Tobacco Use Types Packs/Day Years [...] on file documented as of this encounter Last Filed Vital Signs Vital Sign Reading Time Taken Comments Blood Pressure 132/66 02/24/2022 10:12 AM EDT Pulse 78 02/24/2022 10:12 AM EDT Temperature 36.4 ??C (97.5 ??F) 02/24/2022 10:12 AM EDT Respiratory Rate 16 02/24/2022 10:12 AM EDT Oxygen Saturation 100% 02/24/2022 10:12 AM EDT Inhaled Oxygen Concentration - - Weight 82.1 kg (181 lb) 02/24/2022 10:12 AM EDT Height 160 cm (5' 2.99) 02/24/2022 10:12 AM EDT Body Mass Index 32.07 02/24/2022 10:12 AM EDT documented in this encounter Progress Notes Jackie Dillon, DERMATOLOGY TECHNICIAN - 02/24/2022 10:00 AM EDT Hematology Clinic [place] [phone] HEMATOLOGY PATIENT EVALUATION Patient Active Problem List Diagnosis ??? Pleural effusion ??? 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 Biopsy at [place]. 09/06/19 LN Interpretation at [facility] Outside slide(s) labeled [id number], collection date 09/06/2019. Lymph node, supra clavicular , biopsy : Involved by Follicular lymphoma Grade 3A of ??3( 50%) and grade 1-2 of 3 ( 50% ) DISCUSSION The lymph node architecture is effaced by a back-to back follicles. The follicles ??comprise of centrocytes and centroblasts. There are >15 centroblasts ??per hpf ??averaged over 10HPF in atleast 50% of the lymph node and <15 centroblast /HPF in ??50% of the lymph node specimen submitted for review. ??The neoplastic infiltrate ??is positive for PAX5, BCL2 ??Ki-67 shows variable proliferation rate within the ??follicles and some nodules show atleast 50% PI. Per submitted report flow analysis ??shows a CD19+/Cd20+/CD10 positive kappa restricted B cell population. 10/04/19 PET EXAMINATION: NM PET CT SKULL BASE TO MID-THIGH ? IMPRESSION Extensive neva involvement by lymphoma in the neck, chest, abdomen, and pelvis as described above. FLIPI - 3 (age, stage, LN sites) Decision to watch and wait as pt was asymptomatic and diagnosed at the start of the COVID-19 epidemic. 10/17/20 CT CAP IMPRESSION ?? 1. Diffuse adenopathy, in the chest, abdomen, pelvis, as described. Some of the lymph nodes in the axillary have lightly decreased. However, other lymph nodes in the pelvis have increased. 2. New bilateral renal pelvic fat stranding and bilateral periureteral fat stranding. The mid to distal ureters become enmeshed in the adenopathy of the Pelvis. ------ADDENDUM #1-------- ?? The following indicator lesions were measured using RECIST 1.1 Criteria: Prior study date: 02/11/2020 Current scan date: 10/17/2020 ?? Lesion #1: LEFT axillary lymph node Prior study: Series 4, Image 14, 17 x 20 mm Current study: Series 3, Image 24, 16 x 20 mm ?? Lesion #2: RIGHT para-aortic lymph node Prior study: Series 4, Image 104, 19 x 27 mm Current study: Series 3, Image 140, 25 x 31 mm ?? Lesion #3: LEFT para iliac lymph node Prior study: Series 4, Image 140, 32 x 56 mm Current study: Series 3, Image 176, 34 x 64 mm 02/24/21 Pleural fluid, thoracentesis: Low grade Follicular lymphoma. ?? Flow analysis ( performed onconcurrent Fluid review specimen ) supports the above Plans for restaging and BR followed by 03/04/21 BMBX [id number] ? Location: [facility] ??SPECIMEN RESULTS Bone marrow aspirate, biopsy , peripheral smear : 1. ??Follicular lymphoma, by history. 2. ??Normocellular marrow (40%) with maturing trilineage hematopoiesis and involved by ??paratrabecular lymphoid aggregates c/w ??Follicular lymphoma, involving 40% of the ??cellularity. SYNOPSIS OF ANCILLARY STUDY RESULT(S) Cytogenetic analysis: Karyotyping, [facility]: ??46,XX[20] 03/17/21 PET EXAMINATION: [place] PET CT STANDARD SKULL BASE TO MID-THIGH COMPARISON: CT chest 02/12/2021, CT chest abdomen and pelvis 10/17/2020, and PET/CT 10/04/2019 HEAD/NECK: FDG avid adenopathy in the bilateral upper and lower cervical and supraclavicular regions and within the bilateral parotids, increased in size and number compared to prior PET/CT of 09/2019. Cooler Worker lymph node within the highest FDG uptake in the left level 2 region measures 10 mm with SUV max of 18.7 (axial image 26). ?? CHEST: FDG avid adenopathy in the bilateral axillary and bilateral mediastinal and hilar regions, similar in size compared to CT chest of 10/17/2020. Cooler Worker lymph node with the highest FDG uptake in the left upper axillary region at the lateral margin of the left pectoralis major muscle measures 10 mm with SUV max of 17.6 (axial image 60). Large right pleural effusion with compressive atelectasis of the right lower right middle lobes, unchanged compared to recent CT of 02/16/2021. ?? ABDOMEN/PELVIS: Extensive FDG avid adenopathy in the abdominal and pelvic retroperitoneum and mesentery and bilateral inguinal regions, increased in size and number compared to prior PET/CT of 09/2019 and similar in size compared to prior CT of 10/17/2020. Cooler Worker adenopathy in the highest FDG uptake in the left presacral region has an SUV max of 14.5 (axial image 190). Diffusely increased activity throughout the spleen which is increased in size and intensity compared to prior PET/CT of 09/2019 and similar in size compared to CT of 08/2020. Vertical dimension of the spleen is 12 cm compared to 9.5 prior PET/CT. ?? NOTE: The vast majority of the above-mentioned adenopathy has an SUV max in the range of approximately 4-10 on both the current and prior PET/CT of 09/2019. ?? SKELETON/EXTREMITIES: Normal activity in all regions of the axial and visualized appendicular skeleton. An 11 mm highly FDG avid nodule in the right antecubital region (axial image 133) with SUV max of 13.6. ?? IMPRESSION 1. Extensive neva involvement by lymphoma and neck, chest, abdomen, and pelvis as described above. 2. Diffusely increased activity throughout the spleen which is increased in size compared to prior PET/CT, consistent with splenic involvement by lymphoma. 3. Notable small FDG avid lymph nodes with a very high degree of FDG uptake (SUV max greater than 12) with administrative representative nodes detailed above, are highly suspicious for lymphoma transformation and would be amenable to CT-guided biopsy if clinically indicated. 4. Large right pleural effusion, unchanged compared to prior CT of 02/16/2021. ECHO [place] EF LDH normal 171 03/19/2021 BMBx Bone marrow aspirate, biopsy , peripheral smear : 1. ??Follicular lymphoma, by history. 2. ??Normocellular marrow (40%) with ?? maturing trilineage hematopoiesis and involved ??by paratrabecular lymphoid aggregates c/w ??F ?? ollicular lymphoma, involving 40% of the ??cellularity. ??Cytogenetics pending. See discussion. 04/09/[address] biopsy DIAGNOSIS Lymph node tissue, biopsy: Follicular lymphoma, Follicular, low grade ( grade 1-2 of 3). No transformation ??present. DISCUSSION The lymph node architecture is effaced by a back-to back follicles. The follicles ??comprise of mostly centrocytes and no significant centroblasts. There are <15 ??centroblasts ??per hpf. ANTIBODY ?RESULT/COMMENT CD3 ? Positive in background T cells CD20 ?Positive in B cells CD21 ?Positive in follicle dendritic cells Ki67 ?Positive in 20-30% of intrafollicular ??B cells BCL-2 ? Diffusely positive Started BR 04/22/21 07/07/21 CT Chest IMPRESSION 1. No pulmonary airspace consolidation, nodule, or new metastatic disease. 2. Resolved right pleural effusion. 3. Decreased size of mediastinal and axillary lymph nodes. 09/16/21 C#6 BR 10/20/21 PET-6 IMPRESSION No active lymphoma (Deauville score 2). Plans for MR ??? Hypertension ??? Hypothyroidism ??? Hypercholesterolemia HISTORY OF PRESENT ILLNESS: Patient prefers to be called: Brian Support person(s) : Geovanny; son, Skyler. Brian Bliss is a 71 y.o. female being seen for follow-up of follicular lymphoma. she is referred inconsultation from Dr. Jared Jones, at [facility] for follicular lymphoma. It was a delight to see Brian back in clinic today. She has completed 6 cycles of BR with Neulasta ONPRO support in September 2021. Her restaging PET scan [10/19/21] following completion of therapy confirmed complete remission. She return to clinic today for continuation of maintenance Rituxan initiated in December 2021 and administered q2 months x 2 years. Today will be the beginning of cycle #2. Brian reports tolerating her first infusion of Rituxan maintenance without difficulty. Brian denies fevers, chills, drenching sweats, unintentional weight loss or increase in palpable adenopathy. She received Evusheld in October 2021. She got COVID while in [place] visiting her son Skyler. She received Paxlovid and described minimal symptoms [head cold and fatigued]. She stayed an extra week before returning east. Morerecently, Brian reports having developed another UTI. This is the second UTI in th last 4 months. She is requesting a referral to Urologist in [place] if possible. Her energy is good and she remainsactive. PMHX: no changes Hypertension Hyperlipidemia Hypothyroidism Anxiety - nicely controlled on Efffexor PSHX: no changes Arthroscopic knee surgery remote ROS Energy level: fair/good, remains independent in ADLs Pain: No Appetite: too good Fevers/chills/sweats: No Bruising/bleeding/melena:No Recent infections: UTI as noted above Headaches: No Vision: No visual changes or disturbances Hearing: No hearing impediment Sinus: chronic congestion [unchanged] Seasonal Allergies: No Mouth sores: No Swallowing: No dysphagia GERD: No Nausea/vomiting: No Diarrhea/constipation: No SOB/SHERMAN/pulmonary sx: No chest pain: No sx: recent UTI treated with Macrobid, no residual symptoms Change in adenopathy or other masses: No Unexpected weight loss or gain: 20# wt loss with WW [stable] Skin rashes or petechiae: No suspicious rashes or lesions Musculoskeletal complaints: No Extremities: Negative upper and lower bilaterally Neurologic symptoms: No Mental Status changes: No Mood: Anxiety nicely controlled w/ effexor. Sleep: Some difficulty sleeping MEDS: Outpatient Medications Marked as Taking for the 02/24/22 encounter (Office Visit) with [place], DianeM, DERMATOLOGY TECHNICIAN Medication Sig Dispense Refill ??? acetaminophen (TYLENOL) 650 mg Tablet Sustained Release Take 1,300 mg by mouth nightly. Do not exceed 6 tabs in 24 hours ??? losartan-hydrochlorothiazide (HYZAAR) 100-25 mg Tablet ??? DILTiazem HCl (Cardizem LA) 300 mg Tablet Sustained Release 24 hr ??? tolterodine LA (Detrol LA) 2 mg Capsule, Sust. Release 24 hr Take 2 mg by mouth daily. ??? UNABLE TO FIND Krill oil daily ??? atorvastatin (Lipitor) 10 mg Tablet 10 mg daily. ??? levothyroxine (Synthroid) 75 mcg Tablet Take 75 mcg by mouth daily. ??? venlafaxine XR (Effexor-XR) 37.5 mg Capsule, Sust. Release 24 hr Take 37.5 mg by mouth daily. ??? cholecalciferol, Vitamin D3, 50 mcg (2,000 unit) Tablet Take 50 Units by mouth daily. ALLERGIES: Allergies Allergen Reactions ??? Sulfa (Sulfonamide Antibiotics) FAMILY HISTORY: No changes Mother: 94 yo alive in nursing care with dementia Father: passed 1998. Had lymphoma but unknown which kind. Sounds like he from alternate diagnosis but unclear. CVA in his 50's Sibs: one brother w/ A fib and recovering alcoholic Children: son Skyler 36 yo in [place], [employer] Other: cardiac in grandparents SOCIAL HISTORY: No changes Personal: to Ge[employer]anny. 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 Currently doing Wt Watcher w/ school friends. Loves to cook and read and shop with friends and visit son. One son, Skyler, 36 yo in [place]. He is engaged! She did the [place] Plunge for [employer] at [place]. Aug 2019! works at [employer] Work history: still a school nurse (X 21 years) ETOH: wine nightly Smoking: Quit 30 years ago Marijuana or illicit drug use: none HIPPA Contact Permission: OK to leave message on home or cell phone: OK to leave medical information on home or cell phone: Would patient benefit from social work consult: PHYSICAL EXAM BP 132/66 (Patient Position: Sitting) Pulse 78 Temp 36.4 ??C (97.5 ??F) (Temporal) Resp 16 Ht 160 cm (5' 2.99) Wt 82.1 kg (181 lb) SpO2 100% BMI 32.07 kg/m?? Body surface area is 1.91 meters squared. GENERAL: Brian Bliss is a well-developed, well-nourished, well-appearing 71-year-old woman in [facility] ENT: Oropharynx clear. No hyperemia, exudative plaques or lesions EYES: MATT NECK: Supple without palpable masses, shotty cervical adenopathy,nothing larger than ~1.5cm AXILLARY: Palpable, mobile 1.5cm left axillary node appteciated INGUINAL LN: no adenopathy OTHER LYMPH: no adenopathy CARDIAC: Regular rate and rhythm without S3,S4 or murmurs. LUNGS: Clear to auscultation bilaterally ABDOMEN: Soft and non-tender without hepatosplenomegaly or palpable masses. NABS EXTREMITIES: No cyanosis, clubbing, edema or calf tenderness. SKIN: No bruises or petechiae. NEUROLOGICAL: Alert and oriented to person, place and time. MUSCULOSKELETAL: No spinal or chest wall tenderness. LABORATORY STUDIES: 02/19/22 00:00 WBC 3.53 (E) Hemoglobin 10.7 (E) Hematocrit 31.7 (E) Platelets 200 (E) Neutr Abs (ANC) 1.96 (E) Potassium 4.0 (E) Creatinine 0.8 (E) Total Bilirubin 0.5 (E) AST 20 (E) ALT 26 (E) LDH 235 (E) Iron 82 (E) TIBC 335 (E) Ferritin 57 (E) Transferrin 24 (E) (E): External lab result PATHOLOGY: 09/06/19 LN Interpretation at [facility] Outside slide(s) labeled [id number], collection date 09/06/2019. Lymph node, supra clavicular , biopsy : Involved by Follicular lymphoma Grade 3A of ??3( 50%) and grade 1-2 of 3 ( 50% ) DISCUSSION The lymph node architecture is effaced by a back-to back follicles. The follicles ??comprise of centrocytes and centroblasts. There are >15 centroblasts ??per hpf ??averaged over 10HPF in atleast 50% of the lymph node and <15 centroblast /HPF in ??50% of the lymph node specimen submitted for review. ??The neoplastic infiltrate ??is positive for PAX5, BCL2 ??Ki-67 shows variable proliferation rate within the ??follicles and some nodules show atleast 50% PI. Per submitted report flow analysis ??shows a CD19+/Cd20+/CD10 positive kappa restricted B cell population. [facility] Path 09/06/19 Path report in care everywhere. Reports follicular lymphoma grade 1-2. Immunoperoxidase stains were performed on this case to further characterize the lesion. ANTIBODY(CLONE)(BLOCK):RESULT CD3 (SP7, [employer]) (A3): Highlights background T-cells PAX-5 (1EW, [employer]) (A3): Highlights neoplastic cells BCL-2 Oncoprotein (124, [place]) (A3): Positive in neoplastic cells Ki67 (MIB-1) (K2, [employer]) (A3): Varies, up to strongly positive in 40% of cells, but averages 10% The results of flow cytometry are those of involvement by a CD10+ B-cell lymphoproliferative disorder expressing kappa light chains. The immunophenotypic profile (dim CD19, CD20, CD10+, CD5-) is consistent with a lymphoma of germinal center origin. Differential diagnostic considerations include follicular lymphoma, high grade B-cell lymphoma, and large B-cell lymphoma. Correlation of these findings with morphologic and clinical data is essential. RADIOLOGY STUDIES REVIEWED: No new images reviewed today 10/04/19 EXAMINATION: NM PET CT SKULL BASE TO MID-THIGH ?? IMPRESSION Extensive neva involvement by lymphoma in the neck, chest, abdomen, and pelvis as described above. 02/11/20 CT NECK EXAMINATION: CT NECK SOFT TISSUE W CONTRAST (GENERIC) ?? CLINICAL HISTORY: Hematologic malignancy, surveillance h/o lymphoma; surveillance compare to PET with indicator sites. ? FINDINGS: In comparison to the prior PET/CT dated October 04, 2019 there has been interval progression in volume and multiplicity of cervical lymphadenopathy. For example, ? Largest left parotid gland lymph node measures approximately 1.4 cm, previously measuring 1 cm ?? Largest right parotid gland lymph node measures approximately 1.2 cm, previously measuring 1 cm ?? Largest right cervical lymph node level 2A measures 1.9 x 1.5 cm, previously measuring 1 cm which is best seen on image 46 of series 5. ?? Enlarged right cervical lymph node at level 3 measures 1.3 x 0.8 cm, previously measuring 0.9 x 0.8 cm which is best seen on image 31 of series 5 ?? Largest left cervical lymph node at level 5A measures 1.4 x 1 cm, previously measuring 1.2 x 0.8 cm which is best seen on image 45 of series 5 ?? Enlarged right cervical lymph node at level 5A measures 1.3 x 1.1 cm, previously measuring 0.9 x 0.6 cm which is best seen on image 49 of series 5. ?? IMPRESSION Interval progression of lymphadenopathy within the cervical region. 02/11/20 CT CAP EXAMINATION: CT CHEST ABDOMEN PELVIS W CONTRAST (GENERIC) ?? CLINICAL HISTORY: Hematologic malignancy, surveillance h/o lymphoma; surveillance compare to PET with indicator sites. Chest: Lymph nodes/Mediastinum/Virgie: Enlarged lymph nodes throughout bilateral axillae, supraclavicular regions, mediastinum, and virgie. Some of these have enlarged since the previous PET/CT, for example indicator lesion #1 has increased from 16 x 24 mm to 20 x 28 mm. ?? Lymph Nodes: Numerous enlarged mostly retroperitoneal and pelvic lymph nodes. The largest are listed as indicator sites below. Many of these have increased in size. Short axis dimensions of the largest pelvic sidewall lymph nodes have increased from 22 mm to 28 mm on the right and from 24 mm to 28 mm on the left. Bowel: Contrast reaches the rectum and opacifies the appendix. No obstruction or bowel wall thickening. ? The following indicator lesions were measured using RECIST 1.1 Criteria: Prior study date: None ?? Lesion #1: Right axillary Current study: Series 4, Image 17, 20 x 28 mm Lesion #2: Right perihilar Current study: Series 4, Image 44, 18 x 25 mm Lesion #3: Right common iliac Current study: Series 4, Image 125, 21 x 26 mm Lesion #4: Right pelvic sidewall Current study: Series 4, Image 142, 28 x 56 mm Lesion #5: Left pelvic sidewall Current study: Series 4, Image 139, 31 x 60 mm ?? IMPRESSION Numerous enlarged thoracic, abdominal and pelvic lymph nodes. Many of these appear increased in sizecompared with the PET/CT from 10/04/19. 03/17/21 PET IMPRESSION 1. Extensive neva involvement by lymphoma and neck, chest, abdomen, and pelvis as described above. 2. Diffusely increased activity throughout the spleen which is increased in size compared to prior PET/CT, consistent with splenic involvement by lymphoma. 3. Notable small FDG avid lymph nodes with a very high degree of FDG uptake (SUV max greater than 12) with administrative representative nodes detailed above, are highly suspicious for lymphoma transformation and would be amenable to CT-guided biopsy if clinically indicated. 4. Large right pleural effusion, unchanged compared to prior CT of 02/16/2021. 10/20/21 PET-6 IMPRESSION No active lymphoma (Deauville score 2). ASSESSMENT/PLAN: Brian Bliss is a very pleasant 71 y.o. female referred by Dr Jared Jones for follicular lymphomagrade 1/2. She has stage IIIa disease, bone marrow biopsy has not been done. Echocardiogram was normal with an ejection fraction of 67% in September 2019. Her FLIPI Score is 3 (age, stage, LN sites). Her October 2020 CT scan showed ??mixed results which is not unusual for follicular NHL. ??The largest mass was a 6.4 cm para-aortic lymph node conglomerate. ??No pleural effusion at that time. ??At that time our plan was continued watch and wait, especially in light of the COVID epidemic. ??In the summer 2020, she presented with dyspnea and was found to have pleural effusion. ??Thoracentesis was completed and evaluation of the pleural fluid confirmed lymphoma.? On March 20, 2021 she has an insertion of Pleurx catheter for recurrent pleural effusions. She was treated with bendamustine and rituximab x 6 cycles [initiated 04/22/21] followed by maintenance Rituxan. S --he is here for initiation of cycle #2 of maintenance Rituxan. She describes no significant side effects from her first dose of maintenance Rituxan, maybe a bit more tires for a few days. --proceed as scheduled without modification to treatment plan ?? ID - recent ATB for cellultits, otitis and recurrent UTI. She has completed a course of Macrobid forthe second time with resolution of dysuria though is requesting a Urology consult in [place] givenher recurrent UTIs. Anemia - she has become more anemic in the last 3-4 months. This is more significant than one would expect with Bendamustine. --Full anemia work-up was negative. --Hemoglobin is improving, largely asymptomatic --Iron studies remain low normal- no need for iron supplementation at this time --continued prospective monitoring COVID - vaccinated and boosted before chemo. Second booster received. Evusheld received October 2021. COVID infection [mild case] while in [place] spring 2021 treated with Paxlovid. --Candidate for repeat Evusheld dosing 6 months after first dose [due in early April 2022] Plan: ?? Evusheld received October 2021. [place] in April 2022 as she remains on immunosuppressive therapyand unclear how well she will respond the vaccinations while undergoing therapy with B-cell depleting therapy with Rituxan ?? COVID vaccine #4 received AFTER Evusheld ?? Labs and appt in 2 mos to re-assess her anemia - cbc,cmp, ldh and iron studies ?? Referral to urology in [facility] ?? Mediport flushed quested after 4pm on alternate months ?? Brian was reminded that we remain available in the interim should questions/concerns arise ?? General medical care and age appropriate health screenings remain under the direction of ROULA Omalley,MSN, DERMATOLOGY TECHNICIAN Nurse Practitioner Section of Hematology [facility] Copy Sonali Joe APRN documented in this encounter Plan of Treatment Upcoming Encounters Date Type Specialty Care Team Description 06/16/2022 Office Visit Hematology and Oncology Jackie Dillon APRN [facility] HEMATOLOGY/ONCOL [place] DEPT. [place], [place] [address] (Wo rk) 06/16/2022 Infusion Hematology and Oncology Scheduled Orders Name Type Priority Associated Diagnoses Order S chedule Reticulocyte Count Lab STAT Anemia, unspecified ty pe As Needed for 12 Occurrences sta rting 03/04/2022 unti l 03/04/2023 Scheduled Referrals Name Type Priority Associated Diagnoses Order S chedule Referral to Outpatient Referral Routine Recurrent UTI Ordered : Urology (urinary tract 03/04/2022 infection) documented as of this encounter Procedures Procedure Name Priority Date/Time Associated Diagnosis Comme nts CBC (WITH DIFF) Routine 02/19/2022 Results for this procedure are in the resu lts section. documented in this encounter Results CBC (with Diff) (02/19/2022) P athologist Signature WBC 3.53 Hemoglobin 10.7 Hematocrit 31.7 Platelets 200 Neutr Abs (ANC) 1.96 Creatinine 0.8 Potassium 4.0 Iron 82 TIBC 335 Transferrin 24 Ferritin 57 AST 20 ALT 26 LDH 235 Total Bilirubin 0.5 Specimen (Source) Anatomical Location Collection Method / Collectio n Time Received Time / Laterality Volume Blood 02/19/2022 Historical Provider HEMATOLOGY ORDERABLES documented in this encounter Visit Diagnoses Diagnosis Anemia, unspecified type Recurrent UTI (urinary tract infection) Urinary tract infection, site not specif ied documented in this encounter Care Teams Gallery Or Museum Curator Relationship Specialty Start Date End Date Sonali Joe APRN PCP - General Family Medicine 10/19/21 [address] [place] [address] documented as of this encounter
--- OUTSIDE RECORDS SUMMARY | 2022-05-21 01:01 | XMS_ITS | Encounter Summary ---
:1950 Author Organization [facility] [place] [address] Care Team Providers Name Role Phone Sonali Joe APRN Primary Care Provider Reason for Visit Reason Onset Date Comments Other 11/27/2021 Work with increase i n covid cases Encounter Details Date Type Department Care Team Description 11/27/2021 Telephone Hematology/Oncology at Izzy Mayer RN Other (Work with [facility] increase in covid cases) [address] [place] [phone] Social History Tobacco Use Types Packs/Day Years [...] on file documented as of this encounter Miscellaneous Notes Telephone Encounter - Izzy Mayer RN - 11/27/2021 1:04 PM EDT 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 She has had all four covid vaccines plus evusheld and contracted covid while in [place]. She was given oral antibodies for treatment. Per Dr. Monique pt should refrain from working as school nurse. Letter written up and faxed to [phone] per pt request n TuesdayNovember 30. documented in this encounter Plan of Treatment Upcoming Encounters Date Type Specialty Care Team Description 06/16/2022 Office Visit Hematology and Oncology Jackie Dillon, BURRING MACHINE OPERATOR [facility] HEMATOLOGY/ONCOL SHADIA DEPT. [place], [place] [address] (Wo rk) 06/16/2022 Infusion Hematology and Oncology documented as of this encounter Visit Diagnoses Not on filedocumented in this encounter Care Teams Market Risk Manager Relationship Specialty Start Date End Date Sonali Joe APRN PCP - General Family Medicine 10/19/21 [address] [place] [address] documented as of this encounter
--- OUTSIDE RECORDS SUMMARY | 2022-05-21 01:01 | XMS_ITS | Encounter Summary ---
:1950 Author Organization [facility] [place] [address] Care Team Providers Name Role Phone None Primary Care Provider Unavailable Encounter Details Date Type Department Care Team Description 08/19/2021 Office Visit Hematology/Oncology Venus Mendieta, Grade 2 follicular at [facility] RELAY SHOP TESTER lymphoma of lymph [address] [facility] nodes of multiple [place], [place] DR eboni [id number] HEMATOLOGY/ONCOLOG [phone] Y DEPT. [place], [place] [address] Social History Tobacco Use Types [...] Sign Reading Time Taken Comments Blood Pressure 160/66 08/19/2021 8:52 AM EST Pulse 86 08/19/2021 8:52 AM EST Temperature 36.6 ??C (97.8 ??F) 08/19/2021 8:52 AM EST Respiratory Rate 18 08/19/2021 8:52 AM EST Oxygen Saturation 100% 08/19/2021 8:52 AM EST Inhaled Oxygen Concentration - - Weight 83.3 kg (183 lb 9.6 oz) 08/19/2021 8:52 AM EST Height 160 cm (5' 2.99) 08/19/2021 8:52 AM EST Body Mass Index 32.53 08/19/2021 8:52 AM EST documented in this encounter Progress Notes Venus Mendieta, RELAY SHOP TESTER - 08/19/2021 9:00 AM EST Subjective Patient ID: Brian Bliss is a 71 y.o. female here for f/u of NHL Patient Active Problem List Diagnosis ??? Pleural effusion ??? 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 Biopsy at [place]. 09/06/19 LN Interpretation at [facility] Outside slide(s) labeled [id number], collection date 09/06/2019. Lymph node, supra clavicular [...] restaging and BR followed by 03/04/21 BMBX [id number] ? Location: [facility] ??SPECIMEN RESULTS Bone marrow aspirate, biopsy , peripheral smear : 1. ??Follicular lymphoma, by history. 2. ??Normocellular marrow (40%) with maturing trilineage hematopoiesis and involved by ??paratrabecular lymphoid aggregates c/w ??Follicular lymphoma, involving 40% of the ??cellularity. SYNOPSIS OF ANCILLARY STUDY RESULT(S) Cytogenetic analysis: Karyotyping, [facility]: ??46,XX[20] 03/17/21 PET EXAMINATION: NM PET CT STANDARD SKULL BASE TO MID-THIGH COMPARISON: CT chest 02/12/2021, CT chest abdomen and pelvis 10/17/2020, and PET/CT 10/04/2019 HEAD/NECK: FDG avid adenopathy in the bilateral upper and lower cervical and supraclavicular regions and within the bilateral parotids, increased in size and number compared to prior PET/CT of 09/2019. Cvicu Nurse lymph node within the highest FDG uptake in the left level 2 region measures 10 mm with SUV max of 18.7 (axial image 26). ?? CHEST: FDG avid adenopathy in the bilateral axillary and bilateral mediastinal and hilar regions, similar in size compared to CT chest of 10/17/2020. Cvicu Nurse lymph node with the highest FDG uptake [...] size compared to prior CT of 10/17/2020. Cvicu Nurse adenopathy in the highest FDG uptake in [...] uptake (SUV max greater than 12) with sales representative jewelry nodes detailed above, are highly suspicious for lymphoma transformation and would be amenable to CT-guided biopsy if clinically indicated. 4. Large right pleural effusion, unchanged compared to prior CT of 02/16/2021. ECHO Angelita EF LDH normal 171 03/19/2021 BMBx Bone [...] BCL-2 ? Diffusely positive Started BR 04/22/21 ??? Hypertension ??? Hypothyroidism ??? Hypercholesterolemia HPI Brian is doing well - she has not had to take any meclizine or compazine. Her dizzyness is better -now only with some position changes like lying flat to sit. Resolves quickly. Her energy is OK - shedoes notice more fatigue but still able to do her ADL's and bake! She does get some mild constipation with treatment - has treated succuss fully with miralax. No new adenopathy. No fevers or chills. Norecent infections. Review of Systems Constitutional: Positive for fatigue. HENT: Negative. Eyes: Negative. Respiratory: Negative. Negative for cough and shortness of breath. Cardiovascular: Negative. Negative for chest pain, palpitations and leg swelling. Gastrointestinal: Negative. Negative for constipation, diarrhea, nausea and vomiting. Genitourinary: Negative. Musculoskeletal: Negative. Skin: Negative. Neurological: Positive for dizziness. Negative for weakness and numbness. Hematological: Negative. Psychiatric/Behavioral: Negative. Objective Physical Exam Constitutional: General: She is not in acute distress. Appearance: She is well-developed and well-nourished. HENT: Mouth/Throat: Mouth: Oropharynx is clear and moist. Pharynx: No oropharyngeal exudate. Eyes: Conjunctiva/sclera: Conjunctivae normal. Pupils: Pupils are equal, round, and reactive to light. Cardiovascular: Rate and Rhythm: Normal rate and regular rhythm. Heart sounds: Normal heart sounds. No murmur heard. Pulmonary: Effort: Pulmonary effort is normal. Breath sounds: Normal breath sounds. No wheezing or rales. Chest: Breasts: Right: No supraclavicular adenopathy. Left: No supraclavicular adenopathy. Abdominal: General: Bowel sounds are normal. Palpations: Abdomen is soft. There is no mass. Tenderness: There is no guarding or rebound. Musculoskeletal: General: No edema. Normal range of motion. Cervical back: Normal range of motion and neck supple. Lymphadenopathy: Cervical: No cervical adenopathy. Upper Body: No axillary adenopathy present. Right upper body: No supraclavicular adenopathy. Left upper body: No supraclavicular adenopathy. Lower Body: No right inguinal adenopathy. No left inguinal adenopathy. Skin: General: Skin is warm and dry. Neurological: Mental Status: She is alert and oriented to person, place, and time. Psychiatric: Mood and Affect: Mood and affect normal. Assessment & Plan Brian Bliss?is a very pleasant??71??y.o.?woman with??follicular lymphoma grade 1/2 and grade 3A, diagnosed in August of 2019.?Her FLIPI ??Score is 3 ??(age, stage, LN sites). ? Her October 2020 CT scan showed ??mixed results which is not unusual for follicular NHL. ??The largestmass was a 6.4 cm para-aortic lymph node conglomerate. ??No pleural effusion at that time. ??At thattime our plan was continued watch and wait, especially in light of the Covid epidemic. ??In the summer 2020 she presented with dyspnea and was found to have pleural effusion. ??Thoracentesis was completed and evaluation of the pleural fluid confirmed lymphoma.? On March 20, 2021 she has an insertion of Pleurx catheter for recurrent pleural effusions. Removed in July 2021. ?? 04/22/21- started Rituxan/Bendamustine ?? She has tolerated her therapy very well. We will proceed with cycle 5 today. ?? She did have a sinus infection after cycle 2. Cycle #3 was held on 06/17 due to concerns for Pleurx catheter infection. ?? Macrocytic Anemia -she did have normal HG when we started therapy. This is more significant than onewould expect with bendamustine. Full anemia work-up has been done and no new etiology noted. We willcontinue to monitor - if no improvement after completion of therapy and recovery she may need an additional bne marrow biopsy ?? Brian Bliss??will return to clinic in 4 weeks??for consideration of cycle 6 ??she??will call beforethen if any concerns or changes in status. documented in this encounter Plan of Treatment Upcoming Encounters Date Type Specialty Care Team Description 06/16/2022 Office Visit Hematology and Oncology Jackie Dillon APRN [facility] HEMATOLOGY/ONCOL SHADIA DEPT. [place], [place] [address] (Wo rk) 06/16/2022 Infusion Hematology and Oncology documented as of this encounter Procedures Procedure Name Priority Date/Time Associated Diagnosis Comme nts CREATININE Routine 08/19/2021 Results for thi s procedure are in the resu lts section. CBC (WITH DIFF) Routine 08/19/2021 Results for this procedure are in the resu lts section. documented in this encounter Results Creatinine (08/19/2021) P athologist Signature Creatinine 0.9 LDH 175 Specimen (Source) Anatomical Location Collection Method / Collectio n Time Received Time / Laterality Volume Blood 08/19/2021 Historical Provider CHEMISTRY ORDERABLES CBC (with Diff) (08/19/2021) P athologist Signature WBC 4.26 Hemoglobin 8.8 Hematocrit 26.5 Platelets 169 Neutr Abs (ANC) 2.76 Specimen (Source) Anatomical Location Collection Method / Collectio n Time Received Time / Laterality Volume Blood 08/19/2021 Historical Provider HEMATOLOGY ORDERABLES documented in this encounter Visit Diagnoses Diagnosis 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 documented in this encounter Care Teams Order Make Up Clerk Relationship Specialty Start Date End Date None PCP - General 07/07/21 10/18/21 None documented as of this encounter
--- OUTSIDE RECORDS SUMMARY | 2022-05-21 01:01 | XMS_ITS | Encounter Summary ---
:1950 Author Organization [facility] Address [address] [place] [address] Care Team Providers Name Role Phone Jared Anna MD Primary Care Provider Encounter Details Date Type Department Care Team Description 09/07/2019 Lab Requisition [facility] Brenda Chu enlarged Pathology & R, lymph nodes Laboratory Medicine [address] [place], [place] [address] [facility] [id number] [place] [address] Social History Tobacco Use Types Packs/Day Years Used Date Smoking Tobacco: Never Assessed Sex Assigned at Date Recorded Not on file documented as of this encounter Plan of Treatment Not on filedocumented as of this encounter Procedures Procedure Name Priority Date/Time Associated Diagnosis Comme nts LEUKEMIA/LYMPHOMA Today 09/06/2019 11:14 Localized enlarged Results for this PANEL BY FLOW EST lymph nodes procedure are in CYTOMETRY the results section. 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 See comment. SERVICES Comment The results of flow cytometr y are those of involvement by a CD10+ B-cell lymphoproliferative disorder expressing kappa light chains. The immunophenotypic profile (dim CD19, CD20, CD10+, CD5-) is consist 09/07 [facility] ent with a lymphoma of germi nal center origin. Differential diagnostic considerations include follicular lymphoma, high grade B-cell lymphoma, and large B-cell lymphoma. Correlation of these findings with morphologic and clinical data is essential. 0 13:57 CENTER EST LABORATORY SERVICES Clinical History Left Supraclavicular [facility] mass 0 13:57 [place] EST LABORATORY SERVICES Description The specimen consists of sup raclavicular mass tissue from which a single cell suspension is prepared. Gating is performed using CD45 fluorescence and side scatter. Cellular viability (assessed by propid [facility] iu iodide exclusion) is sub optimal (79%) among the CD45 positive events. Expression of the following antigens is tested: CD2, CD3, CD4, CD5, CD7, CD8, CD10, CD11b, CD11c, CD14, CD16, CD19, CD20, CD23, 0 13 :57 CENTER CD38, CD45, CD56, CD57, FMC-7, HLA-DR, kappa, lambda. EST LABORATORY SERVICES There is a clonal population of B-lymphocytes accounting for 82% of the lymphocytes. The cells comprising this population are positive for dim CD19, CD20, CD10, FMC7, dim/partial CD23, CD38, HLA-DR, CD2 2, and kappa light chains an d they are negative for CD5, CD11b, CD11c, and lambda light chains. By light scatter criteria, the cells are predominantly similar in size to normal lymphocytes. The reminaing lymphoid cells are T-lymphocytes (CD2+CD3+CD5+CD7+) with CD4+ and CD8+ subsets represented. Flow Markers CD2, CD3, CD4, CD5, [facility] ICAL CD7, CD8, CD10, 0 13:57 [place] CD11b, CD11c, CD14, EST LABORATORY CD16, CD19, CD20, SERVICES CD22, CD23, CD38, CD45, CD56, CD57, FMC7, HLADR, [place], and Lambda. Attestation By the signature below, the attending physician certifies that they have 1) personally conducted a gross and/or microscopic examination of the described specimen(s), and/or personally interpreted the re [facility] Electronically sults of laboratory testing of the described specimen(s), and 2) personally rendered or confirmed the above diagnosis. 0 13:57 CENTER signed by EST CARMEN Bess MD on 09/07/19 20 at 1357 FDA Disclaimer This test was [facility] and its 0 13:57 CENTER performance EST LABORATORY characteristics SERVICES determined by the Department of Pathology and Laboratory Medicine, [facility], [place], [place] It has not been cleared or approved by the U.S. Food and Drug Administration. FDA does not require this test to go through premarket FDA review. This test is used for clinical purposes. It should not be regarded as investigational or for research. This laboratory is certified under the Clinical Laboratory Improvement Amendments (CLIA) as qualified to perform high complexity clinical laboratory testing. Specimen Anatomical Collection Method Collection Time Receive d Time (Source) Location / / Volume Laterality Tissue SOFT TISSUE MASS / 09/06/2019 11:14 09/07 8:25 Unknown EST EST Brenda Chu MD PATHOLOGY ORDERABLES Performing Organization Address City/State/ZIP Code Phon e Number [facility] [address] [place] [address] SERVICES documented in this encounter Visit Diagnoses Diagnosis Localized enlarged lymph nodes Enlargement of lymph nodes documented in this encounter Care Teams Staff Educator Relationship Specialty Start Date End Date Jared Anna MD PCP - General 07/11/19 documented as of this encounter
--- OUTSIDE RECORDS SUMMARY | 2022-05-21 01:01 | XMS_ITS | Encounter Summary ---
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 [address] Referral ID Status Reason Start Date Expiration Date Visits Requ ested Visits Authorized [id number] Closed 04/22/2021 12/18/2021 18 18 Encounter Details Date Type Department Care Team Description 08/19/2021 Infusion Hematology Oncology at [facility] rico 2 follicular lymphoma [facility] of lymph nodes of [address] [phone] Social History Tobacco Use [...] documented as of this encounter Progress Notes Christy Galloway RN - 08/19/2021 9:30 AM EST INFUSION THERAPY ADMINISTRATION NOTES DIAGNOSIS: Follicular Lymphoma CYCLE #: 5 Day 1 REASON FOR VISIT: Rituxan/Bendamustine SUBJECTIVE Ms.. Bliss is here for her C5D1 Rituxan and Bendamustine chemotherapy. OBJECTIVE LAB DATA: Labs drawn today at [facility]. Reviewed and found adequate for treatment today. IV Access: Mediport Right Chest, accessed at [facility] for labs. Flushed with 20cc NS and 500 units Heparin and left accessed for C5D2 tomorrow. Pre administration: Chemotherapy orders independently verified for drug name, route, and dosage per patient's height, weight and BSA by Rashmi Galloway RN and pharmacist on-site. Rituxan - given at Rapid Rate per Venus Mendieta APRN with no reactions/complications. REACTIONS (DESCRIPTION, TIME, INTERVENTION AND EFFECTIVENESS) none ASSESSMENT Ms. Bliss was awake, alert and tolerated treatment well. PLAN Return to clinic tomorrow for C5D2. Patient was reminded to call in the interim with any questions/concerns. documented in this encounter Plan of Treatment Upcoming Encounters Date Type Specialty Care Team Description 06/16/2022 Office Visit Hematology and Oncology Jackie Dillon, SALES OPERATIONS MANAGER [facility] HEMATOLOGY/ONCOL SHADIA DEPT. [place], [place] [address] (Wo rk) 06/16/2022 Infusion Hematology and Oncology documented as of this encounter Visit Diagnoses Diagnosis 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 documented in this encounter Administered Medications Inactive Administered Medications - up to 3 most recent administrations Medication Order MAR Action Action Date Dose Rate Site acetaminophen (Tylenol) tablet 650 Given 08/19/2021 9:54 AM EST 650 mg mg 650 mg, Oral, ONCE, 1 dose, On Tue08/19/21 at 1000, Administer prior to riTUXimab., Routine bendamustine (Bendeka) 173 mg in New Bag 08/19/2021 12:[address] 173 mg 341.5 mL/hr sodium chloride 0.9% 56.92 mL infusion 173 mg (rounded from 172.8 mg = 90 mg/m2/dose ? 1.92 m2 Treatment Plan BSA from Recorded weight), Intravenous, ONCE, 1 dose, On Tue08/19/21 at 1100, Administer over 10 Minutes, The resulting final concentration of bendamustine in the infusion bag should be between 1.85 - 5.6 mg/mL. Warning Vesicant/Irritant Medication , This agent is restricted to outpatient use. Is this drug being given as an outpatient? Yes dexamethasone (Decadron) injection 10 mg Given 08/19/2021 9:59 AM EST 10 mg 10 mg, Intravenous, ONCE, 1 dose, On Tue08/19/21 at 1000, Administer prior to riTUXimab diphenhydrAMINE (Benadryl) capsule 25 mg Given 08/19/2021 9:54 AM EST 25 mg 25 mg, Oral, ONCE, 1 dose, On Tue08/19/21 at 1000, Routine heparin (pf) (porcine) (100 units/mL) Given 08/19/2021 12:30 PM EST 500 Units flush 5 mL syringe 500 Units 500 Units, Intravenous, ONCE PRN, Starting on Tue08/19/21 at 0939, Until Tue08/19/21 at 1647, Line Care, Refer to Intravenous (IV) Procedure: Accessing Implanted Vascular Access Devices (464) procedure and/or Intravenous (IV) Job Aid: Adult Flushing & Catheter Care (5127) job aid for additional information regarding guidelines and administration., Routine palonosetron (Aloxi) (0.05 mg/mL) injection Given 03/2022 9:56 AM EST 0.25 mg 0.25 mg 0.25 mg, Intravenous, ONCE, 1 dose, On Tue08/19/21 at 1000, Administer over 30 seconds., Routine riTUXimab-pvvr (Ruxience) 700 mg in sodium New Bag 08/19 10:34 AM EST 700 mg chloride 0.9% 350 mL infusion (malignant indication) 700 mg, Intravenous, ONCE, 1 dose, On Tue08/19/21 at 1100, Administer Per Protocol., Patient is a candidate for rapid infusion riTUXimab? No, Comments (complete to provide additional information): OK to increase rate if prior dose tolerated sodium chloride 0.9 % (flush) (BD PosiFlush Given 03/2022 12:30 PM EST 20 mLs Normal Saline 0.9) flush 5-20 mL 5-20 mL, Intravenous, EVERY 1 MIN PRN, Starting on Tue08/19/21 at 0939, Until Tue08/19/21 at 1647, Line Care, Flush pertains to all indwelling lines. Flush per protocol found in the job aid using the link provided on this medication record. Refer to Intravenous (IV) Job Aid: Adult Flushing & Catheter Care (4645) job aid for additional information regarding guidelines and administration., Routine sodium chloride 0.9% infusion New Bag 08/19/2021 9:45 AM EST 150 mL/hr 150 mL/hr 150 mL/hr, Intravenous, CONTINUOUS, Starting on Tue08/19/21 at 1000, Until Tue08/19/21 at 1647 documented in this encounter Care Teams Financial Health Counselor Relationship Specialty Start Date End Date None PCP - General 07/07/21 10/18/21 None documented as of this encounter
--- OUTSIDE RECORDS SUMMARY | 2022-05-21 01:01 | XMS_ITS | Encounter Summary ---
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 [address] [place] [address] Referral ID Status Reason Start Date Expiration Date Visits V isits Requested Authorized [id number] Closed Specialty 10/05/2021 12/03/2021 1 1 Service Requested Encounter Details Date Type Department Care Team Description 10/19/2021 Hospital Encounter Nuclear Medicine at Barbara Monique MD [facility] [address] HEMATOLOGY/[place] [address] DEPT. [phone] [place], [place] [address] (Wo rk) Social History Tobacco [...] on file documented as of this encounter Medications at Time of Discharge Medication Sig Dispensed Refills Start Date End Date meclizine (Antivert) 12.5 mg Take 1-2 tablets by 50 tablet 0 08/05/2021 Tablet mouth 3 times daily as needed for up to 50 doses. zolpidem (Ambien) 5 mg Take 1 tablet by 30 tablet 0 022 Tablet mouth nightly as needed for Sleep. MR times 1 prn ibuprofen (Motrin) 400 mg Take 400-600 mg by 0 Tablet mouth nightly. losartan-hydrochlorothiazide 0 021 (HYZAAR) 100-25 mg Tablet DILTiazem HCl (Cardizem LA) 0 05/04/20 21 300 mg Tablet Sustained Release 24 hr prochlorperazine (Compazine) Take 1 tablet by 30 tablet 3 1 10 mg Tablet mouth every 6 hours as needed for Nausea. tolterodine LA (Detrol LA) 2 Take 2 mg by mouth 0 mg Capsule, Sust. Release 24 daily. hr UNABLE TO FIND Krill oil daily 0 atorvastatin (Lipitor) 10 mg 10 mg daily. 0 09/07 Tablet levothyroxine (Synthroid) 75 Take 75 mcg by 0 mcg Tablet mouth daily. venlafaxine XR (Effexor-XR) Take 37.5 mg by 0 37.5 mg Capsule, Sust. mouth daily. Release 24 hr cholecalciferol, Vitamin D3, Take 50 Units by 0 50 mcg (2,000 unit) Tablet mouth daily. documented as of this encounter Plan of Treatment Upcoming Encounters Date Type Specialty Care Team Description 06/16/2022 Office Visit Hematology and Oncology Jackie Dillon, IMAGING TECH [facility] [place] [place] [address] (Wo rk) 06/16/2022 Infusion Hematology and Oncology documented as of this encounter Procedures Procedure Name Priority Date/Time Associated Diagnosis Comme nts NM PET CT SKULL Routine 10/19/2021 2:51 PM Grade 2 follicular Results for this BASE TO MID-THIGH EDT lymphoma of lymph proce dure are in ([facility]) nodes of multiple the result s regions section. POCT GLUCOSE Routine 10/19/2021 1:39 PM Results f or this EDT procedure are i n the results section. documented in this encounter Results POCT Glucose (10/19/2021 1:39 PM EDT) athologist Signature POC Glucose 95 65 - 199 [facility] mg/dL [facility] Comment: Supplemental ranges: <140 mg/dL before meals <180 mg/dL all other times of the day Specimen Anatomical Collection Method Collection Time Receive d Time (Source) Location / / Volume Laterality Blood 10/19/2021 1:39 PM 2 1:39 EDT PM EDT Bina Monique MD POINT OF CARE TEST ORDERABLE S Performing Organization Address City/State/[place] [address] documented in this encounter Visit Diagnoses Not on filedocumented in this encounter Care Teams Senior Android Software Engineer Relationship Specialty Start Date End Date Sonali Joe APRN PCP - General Family Medicine 10/19/21 14 [place] [address] documented as of this encounter
--- OUTSIDE RECORDS SUMMARY | 2022-05-21 01:01 | XMS_ITS | Encounter Summary ---
:1950 Author Organization [facility] [place] [address] Care Team Providers Name Role Phone Sonali Joe APRN Primary Care Provider Reason for Visit Reason Onset Date Comments Other 10/21/2021 starla Encounter Details Date Type Department Care Team Description 10/21/2021 Telephone Hematology/Oncology at Izzy Del Valle RN Other (starla) [place] [phone] Social History Tobacco Use Types Packs/Day [...] Telephone Encounter - Izzy Mayer RN - 10/21/2021 10:24 AM EDT Starla order email to [email or web address] alond with covid order. Request for pt to get before 11/02/21. documented in this encounter Plan of Treatment Upcoming Encounters Date Type Specialty Care Team Description 06/16/2022 Office Visit Hematology and Oncology Jackie Dillon APRN [facility] HEMATOLOGY/ONCOL SHADIA DEPT. [place], [place] [address] (Wo rk) 06/16/2022 Infusion Hematology and Oncology documented as of this encounter Visit Diagnoses Not on filedocumented in this encounter Care Teams Air Conditioning Mechanic Industrial Relationship Specialty Start Date End Date Sonali Joe APRN PCP - General Family Medicine 10/19/21 14 [place] [address] documented as of this encounter
--- OUTSIDE RECORDS SUMMARY | 2022-05-21 01:01 | XMS_ITS | Encounter Summary ---
:1950 Author Organization [facility] [place] [address] Care Team Providers Name Role Phone None Primary Care Provider Unavailable Encounter Details Date Type Department Care Team Description 08/05/2021 Office Visit Hematology/Oncology Jose Monique MD [facility] DR HEMATOLOGY/[place] [address] Grade 2 follicular at [facility] Venus Mendieta APRN [facility] DR HEMATOLOGY/[place] [address] lymphoma [address] nodes of multiple [place] regions [phone] Social History Tobacco Use Types Packs/Day [...] Sign Reading Time Taken Comments Blood Pressure 134/67 08/05/2021 9:18 AM EST Pulse 72 08/05/2021 9:18 AM EST Temperature 36.3 ??C (97.3 ??F) 08/05/2021 9:06 AM EST Respiratory Rate 16 08/05/2021 9:18 AM EST Oxygen Saturation 100% 08/05/2021 9:06 AM EST Inhaled Oxygen Concentration - - Weight 82.6 kg (182 lb) 08/05/2021 9:18 AM EST Height 160 cm (5' 2.99) 08/05/2021 9:18 AM EST Body Mass Index 32.25 08/05/2021 9:18 AM EST documented in this encounter Progress Notes Bina Monique MD - 08/05/2021 9:00 AM EST Subjective: Patient ID: Brian Bliss is a 71 y.o. female here for f/u of NHL Patient Active Problem List Diagnosis ??? Pleural effusion ??? 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 Biopsy at [place]. 09/06/19 LN Interpretation at [facility] Outside slide(s) labeled [id number], collection date 09/06/2019. Lymph node, supra clavicular [...] Plans for restaging and BR followed by MR. 03/04/21 BMBX [id number] ? Location: [facility] ??SPECIMEN RESULTS Bone marrow aspirate, biopsy , peripheral smear : 1. ??Follicular lymphoma, by history. 2. ??Normocellular marrow (40%) with maturing trilineage hematopoiesis and involved by ??paratrabecular lymphoid aggregates c/w ??Follicular lymphoma, involving 40% of the ??cellularity. SYNOPSIS OF ANCILLARY STUDY RESULT(S) Cytogenetic analysis: Karyotyping, [facility]: ??46,XX[20] 03/17/21 PET EXAMINATION: NM PET CT STANDARD SKULL BASE TO MID-THIGH COMPARISON: CT chest 02/12/2021, CT chest abdomen and pelvis 10/17/2020, and PET/CT 10/04/2019 HEAD/NECK: FDG avid adenopathy in the bilateral upper and lower cervical and supraclavicular regions and within the bilateral parotids, increased in size and number compared to prior PET/CT of 09/2019. [employer] lymph node within the highest FDG uptake in the left level 2 region measures 10 mm with SUV max of 18.7 (axial image 26). ?? CHEST: FDG avid adenopathy in the bilateral axillary and bilateral mediastinal and hilar regions, similar in size compared to CT chest of 10/17/2020. [employer] lymph node with the highest FDG uptake [...] size compared to prior CT of 10/17/2020. 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 Hypothyroidism ??? Hypercholesterolemia HPI Brian is seen today on day 15 of cycle #4 because she called 2 days ago with increasing lightheadedness. We were concerned about anemia, but her CBC is normal. She states that she has been drinking plenty of fluids. Today we repeated her CBC and CMP and these are listed below. A week ago she started noticing light headedness w/ rapid turning Also with sitting or standing up quickly. Settles once up. No purlmonary sx. wiped out with this cycle More than the othre cycles. Review of Systems Constitutional: Reports lightheadedness when bending over and standing up. Sounds orthostatic but orthostatic BP and pulse was negative in clinic today. HENT: Negative. Eyes: Negative. Respiratory: Negative. Negative for cough and shortness of breath. Cardiovascular: Negative. Negative for chest pain, palpitations and leg swelling. Gastrointestinal: Negative. Negative for constipation, diarrhea, nausea and vomiting. Genitourinary: Negative. Musculoskeletal: Negative. Skin: Negative Neurological: Negative. Negative for weakness and numbness. Hematological: Negative. Psychiatric/Behavioral: Negative. Objective: Physical Exam There were no vitals taken for this visit. Constitutional: General: She is not in acute distress. She has gained weight as she is eating more to calm her stomach while on Augmentin. Appearance: She is well-developed. HENT: Mouth/Throat: Pharynx: No oropharyngeal exudate. Eyes: Conjunctiva/sclera: Conjunctivae [...] is no guarding or rebound. Musculoskeletal: General: Normal range of motion. Cervical back: Normal range of motion and neck supple. Lymphadenopathy: Cervical: No cervical adenopathy. Upper Body: Right upper body: No supraclavicular adenopathy. Left upper body: No supraclavicular adenopathy. Skin: General: Skin is warm and dry. Neurological: Mental Status: She is alert and oriented to person, place, and time. No nystagmus at rest. I was able to induce nystagmus after the Hallpike maneuver Assessment and Plan: Brian Bliss?is a very pleasant??71 y.o.?woman with??follicular lymphoma grade 1/2 and grade 3A, [...] of Pleurx catheter for recurrent pleural effusions. 04/22/21- started Rituxan/Bendamustine x 6 cycles She has tolerated her therapy very well. She did have a sinus infection after cycle 2. Cycle #3 was held on 06/17 due to concerns for Pleurx catheter infection. Brian is now completing a course of Augmentin and tolerated cycle #3 well. Pleurxcatheter was DC'd by thoracic surgery. Anemia -Venus Mendieta noticed at the last appointment that she has become more anemic in the last 1 to2 months. This is more significant than one would expect with bendamustine. Full anemia work-up was done today. Anemia work-up was negative. Lightheadedness -orthostatic vital signs (BP and pulse) were normal in clinic today. NOT hypotensive. On my exam today she had no nystagmus at rest. But after the Hallpike maneuver I did induce horizontal nystagmus. I suspect this is benign positional vertigo. I am going to try Antivert and see if that helps her. If it does not then she will follow up with PCP. Brian Bliss will return to clinic in 2 weeks for consideration of cycle 5 she will call before thenif any concerns or changes in status. documented in this encounter Plan of Treatment Upcoming Encounters Date Type Specialty Care Team Description 06/16/2022 Office Visit Hematology and Oncology Jackie Dillon, COMPENSATION INTERN [facility] ER HEMATOLOGY/ONCOL SHADIA DEPT. [place], [place] [address] (Wo rk) 06/16/2022 Infusion Hematology and Oncology documented as of this encounter Visit Diagnoses Diagnosis 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 documented in this encounter Care Teams Wool Presser Relationship Specialty Start Date End Date None PCP - General 07/07/21 10/18/21 None documented as of this encounter
--- OUTSIDE RECORDS SUMMARY | 2022-05-21 01:01 | XMS_ITS | Encounter Summary ---
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 [address] Referral ID Status Reason Start Date Expiration Date Visits V isits Requested Authorized [id number] Authorized 12/21/2021 12/28/2022 20 20 Encounter Details Date Type Department Care Team Description 04/21/2022 Infusion Hematology Oncology at [facility] rico 2 follicular lymphoma [facility] of lymph nodes of multiple [address] [place] [phone] Social History Tobacco Use Types [...] Sign Reading Time Taken Comments Blood Pressure 155/72 04/21/2022 9:57 AM EDT Pulse 78 04/21/2022 9:57 AM EDT Temperature 36.3 ??C (97.3 ??F) 04/21/2022 9:57 AM EDT Respiratory Rate 18 04/21/2022 9:57 AM EDT Oxygen Saturation 100% 04/21/2022 9:57 AM EDT Inhaled Oxygen Concentration - - Weight 85.3 kg (188 lb) 04/21/2022 9:57 AM EDT Height 160 cm (5' 2.99) 04/21/2022 9:57 AM EDT Body Mass Index 33.31 04/21/2022 9:57 AM EDT documented in this encounter Progress Notes Leticia Villela RN - 04/21/2022 10:00 AM EDT INFUSION THERAPY ADMINISTRATION NOTES DIAGNOSIS: Follicular Lymphoma CYCLE #: 3 Day 1 REASON FOR VISIT: Rituxan maintenance SUBJECTIVE Brian offers no complaints. OBJECTIVE LAB DATA: WBC 3.95, HGB 10.8, HCT 32.1, PLT 204, ANC 1.70, BUN 30, Cr 1.0 IV Access: Mediport Right Chest, accessed at OSH, blood return present and flushes easily. Flushed with 20cc NS and 500 units Heparin and de accessed Pre administration: Chemotherapy orders independently verified for drug name, route, and dosage per patient's height, weight and BSA by Leticia Villela, RN and pharmacist on-site. Rituxan - given at Rapid Rate. REACTIONS (DESCRIPTION, TIME, INTERVENTION AND EFFECTIVENESS) none ASSESSMENT Ms. Bliss was awake, alert and tolerated treatment well. PLAN Return to clinic per schedule. Patient was reminded to call in the interim with any questions/concerns. documented in this encounter Plan of Treatment Upcoming Encounters Date Type Specialty Care Team Description 06/16/2022 Office Visit Hematology and Oncology Jackie Dillon, INSPECTOR BALANCE WHEEL MOTION [facility] ER HEMATOLOGY/ONCOL SHADIA DEPT. [place], [place] [address] (Wo rk) 06/16/2022 Infusion Hematology and Oncology documented as of this encounter Visit Diagnoses Diagnosis 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 documented in this encounter Administered Medications Inactive Administered Medications - up to 3 most recent administrations Medication Order MAR Action Action Date Dose Rate Site acetaminophen (Tylenol) tablet Given 04/21/2022 10:30 AM EDT 650 mg 650 mg 650 mg, Oral, ONCE, 1 dose, On Tue04/21/22 at 1045, Administer prior to riTUXimab., Routine dexAMETHasone (Decadron) (10 mg/mL) injection Given 10:34 AM EDT 10 mg 10 mg 10 mg, Intravenous, ONCE, 1 dose, On Tue04/21/22 at 1045, Administer prior to riTUXimab diphenhydrAMINE (Benadryl) capsule 25 mg Given 04/21/2022 10:30 AM EDT 25 mg 25 mg, Oral, ONCE, 1 dose, On Tue04/21/22 at 1045, Routine heparin (pf) (porcine) (100 units/mL) Given 04/21/2022 12:57 PM EDT 500 Units flush 5 mL syringe 500 Units 500 Units, Intravenous, ONCE PRN, Starting on Tue04/21/22 at 1015, Until Tue04/21/22 at 1600, Line Care, Refer to Intravenous (IV) Procedure: Accessing Implanted Vascular Access Devices (414) procedure and/or Intravenous (IV) Job Aid: Adult Flushing & Catheter Care (3802) job aid for additional information regarding guidelines and administration., Routine riTUXimab-pvvr (Ruxience) 700 mg in sodium New Bag 04/21 11:15 AM EDT 700 mg chloride 0.9% 350 mL infusion (malignant indication) 700 mg, Intravenous, ONCE, 1 dose, On 10/12/22 at 1145, Administer Per Protocol., Patient is a candidate for rapid infusion riTUXimab? Yes sodium chloride 0.9 % (flush) (BD PosiFlush Given 04/10 12:57 PM EDT 20 mLs Normal Saline 0.9) flush 5-20 mL 5-20 mL, Intravenous, EVERY 1 MIN PRN, Starting on Tue04/21/22 at 1015, Until Tue04/21/22 at 1600, Line Care, Flush pertains to all indwelling lines. Flush per protocol found in the job aid using the link provided on this medication record. Refer to Intravenous (IV) Job Aid: Adult Flushing & Catheter Care (8139) job aid for additional information regarding guidelines and administration., Routine documented in this encounter Care Teams Application Support Engineer Relationship Specialty Start Date End Date Sonali Joe APRN PCP - General Family Medicine 10/19/21 14 [place] [address] documented as of this encounter
--- OUTSIDE RECORDS SUMMARY | 2022-05-21 01:01 | XMS_ITS | Encounter Summary ---
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 [address] Referral ID Status Reason Start Date Expiration Date Visits V isits Requested Authorized [id number] Authorized 12/21/2021 12/28/2022 20 20 Encounter Details Date Type Department Care Team Description 02/24/2022 Infusion Hematology Oncology at [facility] rico 2 follicular lymphoma [facility] of lymph nodes of multiple [address] [place] [phone] Social History Tobacco Use Types [...] encounter Progress Notes Leticia Villela RN - 02/24/2022 10:30 AM EDT INFUSION THERAPY ADMINISTRATION NOTES DIAGNOSIS: Follicular Lymphoma CYCLE #: 2 Day 1 REASON FOR VISIT: Rituxan maintenance SUBJECTIVE Brian offers no complaints. OBJECTIVE LAB DATA: 02/19/22 WBC 3.53, HGB 10.7, HCT 31.7, PLT 200, ANC 1.96, BUN 22, Cr 0.8 IV Access: Mediport Right Chest, accessed, blood return present and flushes easily. Flushed [...] Office Visit Hematology and Oncology Jackie Dillon, CRUST SORTER [facility] HEMATOLOGY/ONCOL SHADIA DEPT. [place], [place] [address] (Wo rk) 06/16/2022 Infusion Hematology and Oncology documented as of this encounter Visit Diagnoses Diagnosis 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 documented in this encounter Administered Medications Inactive Administered Medications - up to 3 most recent administrations Medication Order MAR Action Action Date Dose Rate Site acetaminophen (Tylenol) tablet Given 02/24/2022 11:19 AM EDT 650 mg 650 mg 650 mg, Oral, ONCE, 1 dose, On Tue02/24/22 at 1130, Administer prior to riTUXimab., Routine dexAMETHasone (Decadron) (10 mg/mL) injection Given 11:19 AM EDT 10 mg 10 mg 10 mg, Intravenous, ONCE, 1 dose, On Tue02/24/22 at 1130, Administer prior to riTUXimab diphenhydrAMINE (Benadryl) capsule 25 mg Given 02/24/2022 11:19 AM EDT 25 mg 25 mg, Oral, ONCE, 1 dose, On Tue02/24/22 at 1130, Routine heparin (pf) (porcine) (100 units/mL) Given 02/24/2022 1:36 PM E DT 500 Units flush 5 mL syringe 500 Units 500 Units, Intravenous, ONCE PRN, Starting on Tue02/24/22 at 1335, Until Tue02/24/22 at 1541, Line Care, Refer to Intravenous (IV) Procedure: Accessing Implanted Vascular Access Devices (654) procedure and/or Intravenous (IV) Job Aid: Adult Flushing & Catheter Care (9453) job aid for additional information regarding guidelines and administration., Routine riTUXimab-pvvr (Ruxience) 700 mg in sodium New Bag 02/24 11:57 AM EDT 700 mg chloride 0.9% 350 mL infusion (malignant indication) 700 mg, Intravenous, ONCE, 1 dose, On Tue02/24/22 at 1230, Administer Per Protocol., Patient is a candidate for rapid infusion riTUXimab? Yes sodium chloride 0.9 % (flush) (BD PosiFlush Given 02/24/2022 1:35 PM EDT 20 mLs Normal Saline 0.9) flush 5-20 mL 5-20 mL, Intravenous, EVERY 1 MIN PRN, Starting on Tue02/24/22 at 1335, Until Tue02/24/22 at 1541, Line Care, Flush pertains to all indwelling lines. Flush per protocol found in the job aid using the link provided on this medication record. Refer to Intravenous (IV) Job Aid: Adult Flushing & Catheter Care (0561) job aid for additional information regarding guidelines and administration., Routine documented in this encounter Care Teams Sap Hana Architect Relationship Specialty Start Date End Date Sonali Joe APRN PCP - General Family Medicine 10/19/21 14 [place] [address] documented as of this encounter
--- OUTSIDE RECORDS SUMMARY | 2022-05-21 01:01 | XMS_ITS | Clinical Summary ---
:1950 Author Organization [facility] Address [address] [place] [address] Care Team Providers Name Role Phone Jared Anna MD Primary Care Provider Social History Tobacco Use Types Packs/Day Years Used Date Smoking Tobacco: Never Assessed Sex Assigned at Date Recorded Not on file Plan of Treatment Health Maintenance Due Date Last Done Comments Fall Risk Screening 2013 Care Teams Payable Processor Relationship Specialty Start Date End Date Jared Anna MD PCP - General 07/11/19
--- OUTSIDE RECORDS SUMMARY | 2022-05-21 01:01 | XMS_ITS | Encounter Summary ---
:1950 Author Organization [facility] [place] [address] Care Team Providers Name Role Phone Sonali Joe APRN Primary Care Provider Encounter Details Date Type Department Care Team Description 10/19/2021 Hospital Encounter Hematology and Grade 2 follicular Oncology at [facility] [place] [address] Social History Tobacco Use Types Packs/Day Years [...] mouth daily. documented as of this encounter Progress Notes Adriano Elizondo RN - 10/19/2021 1:14 PM EDT Patient Name: Brian Bliss Patient Age: 71 y.o. Birthdate: 1950 Admit date: 10/19/2021 Attending Physician: No att. providers found Access visit. See MAR and/or flowsheet. documented in this encounter Plan of Treatment Upcoming Encounters Date Type Specialty Care Team Description 06/16/2022 Office Visit Hematology and Oncology Jackie Dillon, HAND FORMER HELPER [facility] ER HEMATOLOGY/ONCOL [facility]AD[facility] DEPT. [place], [place] [address] (Wo rk) 06/16/2022 Infusion Hematology and Oncology documented as of this encounter Procedures Procedure Name Priority Date/Time Associated Comments Diagnosis HEMOGRAM STAT 10/19/2021 1:15 PM Grade 2 follicular Res ults for this EDT lymphoma of lymph procedure are in nodes of multiple the result s regions section. DIFFERENTIAL, STAT 10/19/2021 1:15 PM Grade 2 follicular Re sults for this AUTOMATED EDT lymphoma of lymph procedure are in nodes of multiple the result s regions section. IRON AND TIBC STAT 10/19/2021 1:15 PM Results for this EDT procedure are i n the results section. 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 COMPREHENSIVE STAT 10/19/2021 1:15 PM Grade 2 follicular Re sults for this METABOLIC PANEL EDT lymphoma of lymph procedu re are in (NON-FASTING) nodes of multiple the resul ts regions section. documented in this encounter Results Iron and TIBC (10/19/2021 1:15 PM EDT) P athologist Signature Iron 77 30 - 150 [facility] mcg/dL [facility] TIBC 296 250 - 450 [facility] mcg/dL [facility] Iron Saturation 26 20 - 50 % [facility] Specimen Anatomical Collection Method Collection Time Receive d Time (Source) Location / / Volume Laterality Blood Venous Draw / 10/19/2021 1:15 PM 10/20/19 22 1:45 Unknown EDT PM EDT Resulting Agency Comment Spec In Lab Bina Monique MD CHEMISTRY ORDERABLES Performing Organization Address City/State/[place] [address] (ABNORMAL) Differential, Automated (10/19/2021 1:15 PM EDT) Patholo gist Method Time Signature Neutrophils % 60.6 % [facility] Neutr Abs (ANC) 2.00 1.70 - [facility] 6.10 [facility] x10(3)/[facility] LABORATORY Lymphocytes % 25.5 % [facility] Lymphocytes Abs 0.8 (L) 0.9 - 3.2 [facility] x10(3)/[facility] LABORATORY Monocytes % 13.0 % [facility] Monocyte Abs 0.4 0.3 - 0.9 [facility] x10(3)/[facility] LABORATORY Eosinophils % 0.0 % [facility] Eosinophils Abs 0.0 0.0 - 0.4 [facility] x10(3)/[facility] LABORATORY Basophils % 0.6 % [facility] Basophils Abs 0.0 0.0 - 0.1 [facility] x10(3)/[facility] LABORATORY Immature Gran % 0.30 % [facility] Comment: Immature granulocytes(IG's)percentage an d absolute count will include metamyelocytes, myelocytes, and promyelo cytes. Blood smears from CBCs yielding IG's will be scanned manually for concor dance. If this scan disagrees with the automated IG or if promyelocytes are not ed, a manual differential will be performed. Lorraine Gran Abs 0.01 0.00 - 0.04 x10(3)/[facility] MAR Y [facility] Specimen Anatomical Collection Method Collection Time Receive d Time (Source) Location / / Volume Laterality Blood 10/19/2021 1:15 PM 2 1:25 EDT PM EDT Resulting Agency Comment Spec In Lab Bina Monique MD HEMATOLOGY ORDERABLES Performing Organization Address City/State/ZIP [place] [address] (ABNORMAL) Hemogram (10/19/2021 1:15 PM EDT) Analysis Performed At Patho logist Time Signature WBC 3.3 (L) 4.0 - 9.5 [facility] x10(3)/[facility] LABORATORY RBC 2.59 (L) 4.00 - [facility] 5.21 [facility] x10(6)/[facility] Hemoglobin 8.7 (L) 11.7 - [facility] 15.5 g/dL [facility] Hematocrit 24.9 (L) 35.7 - [facility] 45.8 % [facility] MCV 96.1 (H) 82.6 - [facility] 94.4 fL [facility] MCH 33.6 (H) 27.1 - [facility] 32.0 pg [facility] MCHC 34.9 31.7 - [facility] 35.0 g/dL [facility] Platelets 148 145 - 357 [facility] x10(3)/[facility] LABORATORY RDWSD 46.7 (H) 37.0 - [facility] 46.0 [facility] LABORATORY RDWCV 13.4 11.5 - [facility] 14.1 % [facility] MPV 9.6 7.6 - 12.9 [facility] LABORATORY nRBC % Auto 0.0 % [facility] nRBC Abs Auto 0.000 0.000 - [facility] 0.000 [facility] x10(3)/[facility] LABORATORY Specimen Anatomical Collection Method Collection Time Receive d Time (Source) Location / / Volume Laterality Blood 10/19/2021 1:15 PM 2 1:25 EDT PM EDT Resulting Agency Comment Spec In Lab Bina Monique MD HEMATOLOGY ORDERABLES Performing Organization Address City/State/[place] [address] (ABNORMAL) Comprehensive metabolic panel (non-fasting) (10/19/2021 1:15 PM EDT) P athologist Signature Glucose Lvl 99 65 - 199 [facility] mg/dL [facility] Comment: Diabetes: >=200 mg/dL plus symp toms BUN 23 (H) 8 - 18 mg/dL [facility] Creatinine 0.81 0.70 - 1.20 mg/dL [facility] Sodium 138 135 - 145 mmol/L [facility] Potassium 4.0 3.5 - 5.0 mmol/L [facility] Comment: Please note: ??Patients with WBC >100,00 0 may have falsely elevated Potassium levels. ??For accurate Potassium quantif ication in these patients send serum separator tube (gold top) for subsequent determinations. ??Contact the Clinical Chemistry Laboratory if there are any qu estions. Chloride 103 98 - 107 mmol/L [facility] CO2 24 22 - 31 mmol/L [facility] Anion Gap 11 5 - 15 mmol/L [facility] Calcium 9.2 8.5 - 10.5 mg/dL [facility] Total Protein 5.9 (L) 6.1 - 8.0 g/dL [facility] Albumin 4.3 3.2 - 5.2 g/dL [facility] AST 17 0 - 30 unit/L [facility] ALT 16 0 - 30 unit/L [facility] Alk Phos 98 35 - 105 unit/L [facility] Total Bilirubin 0.4 0.2 - 1.3 mg/dL [facility] Estimated GFR 72 >=60 mL/min/1.73 m?? [facility] Comment: This patient? s estimated glomerular filtration rate (eGFR) is between 72 mL/min/1.73 m2 (patients with less muscl e mass) and 84 mL/min/1.73 m2 (patients with more muscle mass) as determined by the CKD-EPI equation. Assessment of eGFR is not appropriate when creatinine concentrations are rapidly changing. For clinical decisions where creatinine clearance will affect therapy, a 24-hour urine creatinine clearance may b e advised. Assignment of CKD stage 1 - 5 for patien ts with an eGFR near the transition point between stages may be based on cli nical assessment of muscle mass and symptoms in addition to eGFR. Specimen Anatomical Collection Method Collection Time Receive d Time (Source) Location / / Volume Laterality Blood 10/19/2021 1:15 PM 2 1:25 EDT PM EDT Resulting Agency Comment Spec In Lab Bina Monique MD CHEMISTRY ORDERABLES Performing Organization Address City/State/[place] [address] Lactate Dehydrogenase (10/19/2021 1:15 PM EDT) athologist Signature LDH 185 110 - 220 [facility] unit/L [facility] Specimen Anatomical Collection Method Collection Time Receive d Time (Source) Location / / Volume Laterality Blood 10/19/2021 1:15 PM 2 1:25 EDT PM EDT Resulting Agency Comment Spec In Lab Bina Monique MD CHEMISTRY ORDERABLES Performing Organization Address City/State/[place] [address] documented in this encounter Visit Diagnoses Diagnosis 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 documented in this encounter Administered Medications Inactive Administered Medications - up to 3 most recent administrations Medication Order MAR Action Action Date Dose Rate Site sodium chloride 0.9 % (flush) (BD Given 10/19/2021 1:13 PM EDT 2 0 mLs PosiFlush Normal Saline 0.9) flush 10-20 mL 10-20 mL, Intravenous, EVERY 1 MIN PRN, Starting on 10/19/21 at 1252, Until Tu10/20/21 at 0433, Block Out Machine Operator, Routine documented in this encounter Care Teams Restaurant District Manager Relationship Specialty Start Date End Date Sonali Joe APRN PCP - General Family Medicine 10/19/21 14 [place] [address] documented as of this encounter
--- OUTSIDE RECORDS SUMMARY | 2022-05-21 01:01 | XMS_ITS | Encounter Summary ---
:1950 Author Organization [facility] [place] [address] Care Team Providers Name Role Phone Sonali Joe APRN Primary Care Provider Reason for Visit Reason Onset Date Comments Other 05/19/2022 patricia Encounter Details Date Type Department Care Team Description 05/19/2022 Telephone Hematology/Oncology at Izzy Del Valle RN Other (patricia) [place] [phone] Social History Tobacco Use Types Packs/Day [...] Telephone Encounter - Izzy Mayer RN - 05/19/2022 3:26 PM EST patricia order emailed to sporter at [facility], they will contact pt to set up appointment. documented in this encounter Plan of Treatment Upcoming Encounters Date Type Specialty Care Team Description 06/16/2022 Office Visit Hematology and Oncology Jackie Dillon APRN [facility] ER HEMATOLOGY/ONCOL SHADIA DEPT. [place], [place] [address] (Wo rk) 06/16/2022 Infusion Hematology and Oncology documented as of this encounter Visit Diagnoses Not on filedocumented in this encounter Care Teams Shoelace Tipping Machine Operator Relationship Specialty Start Date End Date Sonali Joe APRN PCP - General Family Medicine 10/19/21 14 [place] [address] documented as of this encounter
--- OUTSIDE RECORDS SUMMARY | 2022-05-21 01:01 | XMS_ITS | Encounter Summary ---
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 [address] [place] [address] Referral ID Status Reason Start Date Expiration Date Visits V isits Requested Authorized [id number] Closed Specialty 10/05/2021 12/03/2021 1 1 Service Requested Encounter Details Date Type Department Care Team Description 09/16/2021 Office Visit Hematology/Oncology Jose Monique MD [facility] HEMATOLOGY/[place] [address] Grade 2 follicular at [facility] Venus Mendieta, CELLULAR TOWER CLIMBER [facility] HEMATOLOGY/[place] [address] lymphoma of lymph [address] nodes of multiple [place] regions [id number] Social History Tobacco Use [...] Sign Reading Time Taken Comments Blood Pressure 147/62 09/16/2021 8:58 AM EST Pulse 87 09/16/2021 8:58 AM EST Temperature 35.7 ??C (96.2 ??F) 09/16/2021 8:58 AM EST Respiratory Rate 18 09/16/2021 8:58 AM EST Oxygen Saturation 100% 09/16/2021 8:58 AM EST Inhaled Oxygen Concentration - - Weight 82.6 kg (182 lb 3.2 oz) 09/16/2021 8:58 AM EST Height 160 cm (5' 2.99) 09/16/2021 8:58 AM EST Body Mass Index 32.28 09/16/2021 8:58 AM EST documented in this encounter Progress Notes Bina Monique MD - 09/16/2021 9:00 AM EST Hematology Clinic [place] [id number] HEMATOLOGY PATIENT EVALUATION Patient Active Problem List Diagnosis ??? Pleural effusion ??? 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 Biopsy at [place]. 09/06/19 LN Interpretation at [facility] Outside slide(s) labeled [id number], collection date 09/06/2019. Lymph node, supra clavicular [...] restaging and BR followed by MR. 03/04/21 [facility] [id number] ? Location: [facility] ??SPECIMEN RESULTS Bone marrow aspirate, biopsy , peripheral smear : 1. ??Follicular lymphoma, by history. 2. ??Normocellular marrow (40%) with maturing trilineage hematopoiesis and involved by ??paratrabecular lymphoid aggregates c/w ??Follicular lymphoma, involving 40% of the ??cellularity. SYNOPSIS OF ANCILLARY STUDY RESULT(S) Cytogenetic analysis: Karyotyping, [facility]: ??46,XX[20] 03/17/21 PET EXAMINATION: CT PET CT STANDARD SKULL BASE TO MID-THIGH COMPARISON: CT chest 02/12/2021, CT chest abdomen and pelvis 10/17/2020, and PET/CT 10/04/2019 HEAD/NECK: FDG avid adenopathy in the bilateral upper and lower cervical and supraclavicular regions and within the bilateral parotids, increased in size and number compared to prior PET/CT of 09/2019. [employer] lymph node within the highest FDG uptake in the left level 2 region measures 10 mm with SUV max of 18.7 (axial image 26). ?? CHEST: FDG avid adenopathy in the bilateral axillary and bilateral mediastinal and hilar regions, similar in size compared to CT chest of 10/17/2020. [employer] lymph node with the highest FDG uptake [...] size compared to prior CT of 10/17/2020. [employer] adenopathy in the highest FDG uptake in [...] uptake (SUV max greater than 12) with medical field representative nodes detailed above, are highly suspicious [...] and axillary lymph nodes. 09/16/21 C#6 BR ??? Hypertension ??? Hypothyroidism ??? Hypercholesterolemia HISTORY OF PRESENT ILLNESS: Patient prefers to be called: Brian Support person(s) : Geovanny; son, Skyler. Brian Bliss is a 71 y.o. year old female being seen for Follow up of follicular lymphoma. she is referred in consultaion from Dr. Jared Jones, at [facility] for follicular lymphoma. It was a delight to see Brian back in clinic today. Here for C#6. Doing well. No complaints. PMHX: Hypertension Hyperlipidemia Hypothyroidism Anxiety - nicely controlled on Efffexor PSHX: Arthroscopic knee surgery remote ROS Energy level: OK energy but aware that she is 69 yo Pain: See HPI Appetite:good Fevers/chills/sweats: some NS Bruising/bleeding/melena:No Recent infections:No Headaches:neg Vision:neg Hearing:neg Sinus: + since Jul 2019 Seasonal Allergies: neg Mouth sores:neg Dentition: Good Swallowing: neg GERD : neg Nausea/vomiting: neg diarrhea/constipation:No SOB/SHERMAN/pulmonary sx: no chest pain:No sx: negative Change in adenopathy or other masses:No Unexpected weight loss or gain: 20# wt loss with WW Skin rashes or petechiae:No Musculoskeletal complaints:No Extremities: Negative upper and lower bilaterally Neurologic symptoms:No Mental Status changes: neg Mood: Anxiety nicely controlled w/ effexor. Sleep: Some difficulty sleeping + snoring - reports she does not stop breathing. MEDS: Outpatient Medications Marked as Taking for the 09/16/21 encounter (Office Visit) with Bina Monique MD Medication Sig Dispense Refill ??? meclizine (Antivert) 12.5 mg Tablet Take 1-2 tablets by mouth 3 times daily as needed for up to 50 doses. 50 tablet 0 ??? zolpidem (Ambien) 5 mg Tablet Take 1 tablet by mouth nightly as needed for Sleep. MR times 1 prn30 tablet 0 ??? ibuprofen (Motrin) 400 mg Tablet Take 400-600 mg by mouth nightly. ??? losartan-hydrochlorothiazide (HYZAAR) 100-25 mg Tablet ??? DILTiazem HCl (Cardizem LA) 300 mg Tablet Sustained Release 24 hr ??? prochlorperazine (Compazine) 10 mg Tablet Take 1 tablet by mouth every 6 hours as needed for Nausea. 30 tablet 3 ??? tolterodine LA (Detrol LA) 2 mg [...] Tablet Take 50 Units by mouth daily. Allergies: Allergies Allergen Reactions ??? Sulfa (Sulfonamide Antibiotics) FAMILY HISTORY: Mother: 94 yo alive in nursing care with dementia Father: passed 1998. Had lymphoma but unknown which kind. Sounds like he from alternate diagnosis but unclear. CVA in his 50's Sibs: one brother w/ A fib and recovering alcoholic Children: son Skyler 36 yo in [place], [employer] Other: cardiac in grandparents SOCIAL HISTORY Personal: to [employer]. 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 Loves to cook and read and shop with friends and visit son. One son, Skyler, 36 yo in [place]. He is engaged! She did the [employer]unge for [employer] at [employer]. Aug 2019! works at [employer] Work history: still a school nurse (X 21 years) ETOH: wine nightly Smoking: Quit 30 years ago Marijuana or illicit drug use: none HIPPA Contact Permission: OK to leave message on home or cell phone: OK to leave medical information on home or cell phone: Would patient benefit from social work consult: PHYSICAL EXAM BP 147/62 (Patient Position: Sitting) Pulse 87 Temp 35.7 ??C (96.2 ??F) (Temporal) Resp 18 Ht 160 cm (5' 2.99) Wt 82.6 kg (182 lb 3.2 oz) SpO2 100% BMI 32.28 kg/m?? Body surface area is 1.92 meters squared. GENERAL: Brian Bliss appears well and is in no acute distress. ENT: Oral pharynx clear. EYES: MATT NECK: Supple with L supraclav <2cm adenopathy. With well healed scar. R post lfat LN - barely appreciable. Multiple bilateral 1-2cm LN AXILLARY: 1.5cm L axilla INGUINAL LN: no adenopathy OTHER LYMPH: no adenopathy CARDIAC: Regular rate and rhythm without S3,S4 or murmurs. LUNGS: Clear to auscultation./percussion ABDOMEN: Soft and non-tender without hepatosplenomegaly or masses. EXTREMITIES: No cyanosis, clubbing, edema or calf tenderness. SKIN: No bruises or petechiae. NEUROLOGICAL: Alert and oriented to person, place and time. MUSCULOSKELETAL: No spinal or chest wall tenderness. LABORATORY STUDIES Recent Results (from the past 72 hour(s)) CBC (with Diff) Result Value Ref Range WBC 4.16 Hemoglobin 9.1 Hematocrit 26.4 Platelets 171 Neutr Abs (ANC) 2.15 Creatinine 1 LDH 180 PATHOLOGY: 09/06/19 LN Interpretation at [facility] Outside slide(s) labeled [id number], collection date 09/06/2019. Lymph node, supra clavicular [...] positive kappa restricted B cell population. [facility] Path 09/06/19 Path report in care everywhere. Reports follicular lymphoma grade 1-2. Immunoperoxidase stains were performed on this case to further characterize the lesion. ANTIBODY(CLONE)(BLOCK):RESULT CD3 (SP7, [employer] [place]) (A3): Highlights background T-cells PAX-5 (1EW, Leica) (A3): Highlights neoplastic cells BCL-2 Oncoprotein (124, [place]) (A3): Positive in neoplastic cells Ki67 (MIB-1) [...] clinical data is essential. RADIOLOGY STUDIES REVIEWED: 10/04/19 EXAMINATION: NM PET CT SKULL BASE [...] to PET with indicator sites. Chest: Lymph nodes/Mediastinum/Jared: Enlarged lymph nodes throughout bilateral axillae, supraclavicular regions, mediastinum, and jared. Some of these have enlarged since the [...] uptake (SUV max greater than 12) with medical field representative nodes detailed above, are highly suspicious for lymphoma transformation and would be amenable to CT-guided biopsy if clinically indicated. 4. Large right pleural effusion, unchanged compared to prior CT of 02/16/2021. ASSESSMENT/PLAN: Brian Bliss is a very pleasant 71 y.o. female referred by Dr Jared Jones for follicular lymphomagrade 1/2 and grade 3A. Her staging studies are complete. She has stage IIIa disease, bone marrow biopsy has not been done. Echocardiogram was normal with an ejection fraction of 67% in September 2019. HerFLIPI Score is 3 (age, stage, LN sites) . I reviewed her PET scan images with her. Although it can look overwhelming, I pointed out the bladder, kidneys, and bowel all of which are lighting up as well,making the disease look more extensive. All of her at lymph nodes are small although there are a significant number of PET avid lymph nodes. I also reviewed the normal echocardiogram with an ejection fraction of 67%. Her labs were normal with a hemoglobin greater than 12, and normal LDH. Given that she does have a component of grade 3A disease, I considered treating her with bendamustine and rituximab followed by maintenance Rituxan. Treatment was not initially pursued given shankar epidemic. ?? Her October 2020 CT scan showed ??mixed [...] of Pleurx catheter for recurrent pleural effusions. ?? 04/22/21- started Rituxan/Bendamustine x 6 cycles ?? She has tolerated her therapy very well. Here for C#6 BR. ?? She did have a sinus infection after cycle 2. Cycle #3 was held on 06/17 due to concerns for Pleurx catheter infection. Brian is now completing a course of Augmentin and tolerated cycle #3 well. Pleurxcatheter was DC'd by thoracic surgery. ?? Anemia -Venus Mendieta noticed at the last appointment that she has become more anemic in the last 1 to2 months. This is more significant than one would expect with bendamustine. Full anemia work-up was done today. Anemia work-up was negative. Improving. ?? Lightheadedness -orthostatic vital signs (BP and pulse) were normal in clinic today. REsolved with more hydration. Never used the anti-vert. ?? COVID - vaccinated and boosted before chemo. Will need to review Evusheld and re-vaccination w/ her. Work - she plans to rtc work in November. Not sure he is ready to retire yet. Skyler,son, is hoping to have children. Plan: ?? Proceed with c#6 today ?? PET-6 in 4 -8 weeks with appt to follow ?? Plans for MR To follow BR ?? Return to work per her request. I discussed all of the above with the patient and all of her questions were answered. Support and counseling given as appropriate. This note was written or modified using Welcome Real-time voice recognition software. The final note was screened for mistakes. Please excuse any remaining errors. total time: time in counselling: Copy None documented in this encounter Plan of Treatment Upcoming Encounters Date Type Specialty Care Team Description 06/16/2022 Office Visit Hematology and Oncology Jackie Dillon, CELLULAR TOWER CLIMBER [facility] HEMATOLOGY/ONCOL [place] DEPT. [place], [place] [address] (Wo rk) 06/16/2022 Infusion Hematology and Oncology documented as of this encounter Procedures Procedure Name Priority Date/Time Associated Diagnosis Comme nts CBC (WITH DIFF) Routine 09/16/2021 Results for this procedure are in the resu lts section. documented in this encounter Results NM PET CT Skull Base to Mid-thigh (10/19/2021 2:51 PM EDT) Anatomical Region Laterality Modality Positron Emission To mography (PET) Specimen (Source) Anatomical Location Collection Method / Collectio n Time Received Time / Laterality Volume Impressions 10/20/2021 10:15 AM EDT No active lymphoma (Deauville score 2). I have personally reviewed the image(s) and the resident's interpretation and agree with the findings, Luis Guerrero at 10/20/2021 10:15 AM Thank you for letting us participate in the care of this patient. ??If you are a health care provider and have any questi ons regarding this report, please contact the number below. ??For patients who have questions please contact the health janitor caretaker that requested your imaging first. ? Electronically signed by: Allan Coates MD, [facility] ([phone]), at 10/20/2021 10:15 AM Narrative 10/20/2021 10:15 AM EDT EXAMINATION: NM PET CT STANDARD SKULL BASE TO MID-THIGH CLINICAL HISTORY: Non-Hodgkin lymphoma, assess treatment response PET after 6 cycles of bendamustine/Ritux an for Follicular lymphoma TECHNIQUE: Following IV injection of 18- nqzbua-1-dhimkuxrjxcz (FDG) a standard uptake of approximately 60 minutes, a no ncontrast CT scan followed by a PET scan were acquired from the base of the skull to mid thighs. The noncontrast CT was used for anatomic localization and photo n attenuation correction of the PET scan. Blood glucose level: 95 (mg/dL) FDG dose: 16.3 mCi COMPARISON: PET/CT from 03/17/2021 FINDINGS: HEAD/NECK: Resolved cervical adenopathy with normal activity in all soft tissue regions of the neck and visualized lower head. CHEST: Complete metabolic and near complete jesika tomic resolution of previously seen adenopathy. No measurable residual adeno darryn. Right anterior chest port is present wit h tip terminating at the distal SVC. ABDOMEN/PELVIS: Complete metabolic and near complete jesika tomic resolution of previously seen adenopathy. Small residual adenopathy sow s no significant activity above reference blood pool background. Splenic size and activity has normalized . Normal activity in all soft tissue regions. SKELETON/EXTREMITIES: Normal activity in all regions of the ax ial and visualized appendicular skeleton. No adenopathy. Procedure Note Allan Coates MD - 10/20/2021Formatti ng of this note might be different from the original. EXAMINATION: NM PET CT STANDARD SKULL BA SE TO MID-THIGH CLINICAL HISTORY: Non-Hodgkin lymphoma, assess treatment response PET after 6 cycles of bendamustine/Ritux an for Follicular lymphoma TECHNIQUE: Following IV injection of 18- hmtcgs-8-gjczaxxfxcdg (FDG) a standard uptake of approximately 60 minutes, a no ncontrast CT scan followed by a PET scan were acquired from the base of the skull to mid thighs. The noncontrast CT was used for anatomic localization and photo n attenuation correction of the PET scan. Blood glucose level: 95 (mg/dL) FDG dose: 16.3 mCi COMPARISON: PET/CT from 03/17/2021 FINDINGS: HEAD/NECK: Resolved cervical adenopathy with normal activity in all soft tissue regions of the neck and visualized lower head. CHEST: Complete metabolic and near complete jesika tomic resolution of previously seen adenopathy. No measurable residual adeno darryn. Right anterior chest port is present wit h tip terminating at the distal SVC. ABDOMEN/PELVIS: Complete metabolic and near complete jesika tomic resolution of previously seen adenopathy. Small residual adenopathy sow s no significant activity above reference blood pool background. Splenic size and activity has normalized . Normal activity in all soft tissue regions. SKELETON/EXTREMITIES: Normal activity in all regions of the ax ial and visualized appendicular skeleton. No adenopathy. IMPRESSION No active lymphoma (Deauville score 2). I have personally reviewed the image(s) and the resident's interpretation and agree with the findings, Luis Guerrero at 10/20/2021 10:15 AM Thank you for letting us participate in the care of this patient. If you are a health care provider and have any questi ons regarding this report, please contact the number below. For patients w ho have questions please contact the health janitor caretaker that requested your imaging first. Electronically signed by: Allan Coates MD, [facility] ([phone]), at 10/20/2021 10:15 AM Bina Monique MD IMG PET ORDERABLES CBC (with Diff) (09/16/2021) P athologist Signature WBC 4.16 Hemoglobin 9.1 Hematocrit 26.4 Platelets 171 Neutr Abs (ANC) 2.15 Creatinine 1 LDH 180 Specimen (Source) Anatomical Location Collection Method / Collectio n Time Received Time / Laterality Volume Blood 09/16/2021 Historical Provider HEMATOLOGY ORDERABLES documented in this encounter Visit Diagnoses Diagnosis 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 documented in this encounter Care Teams Quick Sketch Artist Relationship Specialty Start Date End Date None PCP - General 07/07/21 10/18/21 None documented as of this encounter
--- OUTSIDE RECORDS SUMMARY | 2022-05-21 01:01 | XMS_ITS | Clinical Summary ---
:1950 Author Organization [facility] [place] [address] Care Team Providers Name Role Phone HeathSandraSonaliyasmany Crawford APRN Primary Care Provider Allergies Active Allergy Reactions Severity Noted Date Comments Sulfa (Sulfonamide Antibiotics) 0 Medications Medication Sig Dispensed Refills Start Date End Date Status atorvastatin (Lipitor) 10 10 mg daily. 0 09/07/2019 Active mg Tablet levothyroxine (Synthroid) Take 75 mcg by 0 0 Active 75 mcg Tablet mouth daily. venlafaxine XR Take 37.5 mg by 0 08/23/2019 Active (Effexor-XR) 37.5 mg mouth daily. Capsule, Sust. Release 24 hr cholecalciferol, Vitamin Take 50 Units 0 Active D3, 50 mcg (2,000 unit) by mouth daily. Tablet UNABLE TO FIND Krill oil daily 0 Active tolterodine LA (Detrol Take 2 mg by 0 Active LA) 2 mg Capsule, Sust. mouth daily. Release 24 hr prochlorperazine Take 1 tablet 30 tablet 3 04/22/2021 Active (Compazine) 10 mg Tablet by mouth every 6 hours as needed for Nausea. Additional Information Patient not taking. Reported on 02/24/2022 ibuprofen (Motrin) 400 mg Take 400-600 mg by mouth 0 Active Tablet nightly. losartan-hydrochlorothiazid 0 04/01/2021 Active e (HYZAAR) 100-25 mg Tablet DILTiazem HCl (Cardizem LA) 0 05/04/2021 Active 300 mg Tablet Sustained Release 24 hr zolpidem (Ambien) 5 mg Take 1 tablet by mouth 30 tablet 0 07/11 Active Tablet nightly as needed for Sleep. MR times 1 prn Additional Information Patient not taking. Reported on 02/24/2022 meclizine (Antivert) 12.5 mg Take 1-2 tablets by mouth 50 tablet 0 08/05/2021 Active Tablet 3 times daily as needed for up to 50 doses. Additional Information Patient not taking. Reported on 02/24/2022 acetaminophen (TYLENOL) 650 mg Tablet Take 1,300 mg by mouth nightly. 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 Aug 2019 - L supraclavicular LN - biopsy , excisional Grade I/II FL. Biopsy at [place]. 09/06/19 LN Interpretation at [facility] Outsid e slide(s) labeled [id number], collection date 09/06/2019. Lymph node, supra clavicular , biopsy : Involved by Follicular lymphoma Grade 3A of ??3( 50%) and grade 1-2 of 3 ( 50% ) DISCUSSION The lymph node architecture is effaced b y a back-to back follicles. The follicles ??comprise of centrocytes and centroblasts. There are >15 centroblasts ??per hpf ??averaged over 10HPF in atleast 50% of the lymph node and <15 centroblast / HPF in ??50% of the lymph node specimen submitted for review. ??The neoplastic infiltrate ??is positive for PAX5, BCL2 ??Ki-67 shows variable proliferation rat e within the ??follicles and some nodule s show atleast 50% PI. Per submitted report flow analysis ??shows a CD19+/Cd20+/CD10 positive kappa restricted B cell population. 10/04/19 PET EXAMINATION: NM PET CT SKULL BASE TO MID-THIGH ? IMPRESSION Extensive neva involvement by lymphoma in the neck, chest, abdomen, and pelvis as described above. FLIPI - 3 (age, stage, LN sites) Decision to watch and wait as pt was asy mptomatic and diagnosed at the start of the COVID-19 epidemic. 4/9/21 CT CAP IMPRESSION ?? 1. Diffuse adenopathy, in the chest, abd omen, pelvis, as described. Some of the lymph nodes in the axillary have lightly decreased. However, other lymph nodes in the pelvis have increased. 2. New bilateral renal pelvic fat strand ing and bilateral periureteral fat stranding. The mid to distal ureters become enmeshed in the adenopathy of the Pelvis. ------ADDENDUM #1-------- ?? The following indicator lesions were ludin sured using RECIST 1.1 Criteria: Prior study date: 02/11/2020 Current scan date: 10/17/2020 ?? Lesion #1: LEFT axillary lymph node Prior study: Series 4, Image 14, 17 x 2 0 mm Current study: Series 3, Image 24, [...] x 64 mm 02/24/21 Pleural fluid, thoracentesis: Lo w grade Follicular lymphoma. ?? Flow analysis ( performed on concurrent Fluid review specimen ) supports the above Plans for restaging and BR followed by Luis Edwards 03/04/21 BMBX [id number] ? Location: [facility] ??SPECIMEN RESULTS Bone marrow aspirate, biopsy , periphera l smear : 1. ??Follicular lymphoma, by history. 2. ??Normocellular marrow (40%) with mat uring trilineage hematopoiesis and involved by ??paratrabecular lymphoid aggregates c/w ??Follicular lymphoma, involving 40% of the ??cellularity. SYNOPSIS OF ANCILLARY STUDY RESULT(S) Cytogenetic analysis: Karyotyping, -Oakley: ??46,XX[20] 03/17/21 PET EXAMINATION: NM PET CT STAND GINA SKULL BASE TO MID-THIGH COMPARISON: CT chest 02/12/2021, CT chest abdomen and pelvis 10/17/2020, and PET/CT 10/04/2019 HEAD/NECK: FDG avid adenopathy in the bilateral upp er and lower cervical and supraclavicular regions and within the b ilateral parotids, increased in size and number compared to prior PET/CT of 0. [place] lymph node within the hig hest FDG uptake in the left level 2 region measures 10 mm with SUV max of 18 .7 (axial image 26). ?? CHEST: FDG avid adenopathy in the bilateral axi llary and bilateral mediastinal and hilar regions, similar in size compared to CT chest of 10/17/2020. [place] lymph node with the highe st FDG uptake in the left upper axillary region at the lateral margin of the left pectoralis major muscle measures 10 mm with SUV max of 17.6 (axial image 60). Large right pleural effusion with compre ssive atelectasis of the right lower right middle lobes, unchanged compared t o recent CT of 02/16/2021. ?? ABDOMEN/PELVIS: Extensive FDG avid adenopathy in the abd ominal and pelvic retroperitoneum and mesentery and bilateral inguinal regions , increased in size and number compared to prior PET/CT of 09/2019 and similar in size compared to prior CT of 10/17/2020. [place] adenopathy in the highest FDG uptake in the left presacral region has an SUV max of 14.5 (axial image 190) . Diffusely increased activity throughout the spleen which is increased in size and intensity compared to prior PET/CT o f 09/2019 and similar in size compared to CT of 08/2020. Vertical dimension of the spleen is 12 cm compared to 9.5 prior PET/CT. ?? NOTE: The vast majority of the above-men tioned adenopathy has an SUV max in the range of approximately 4-10 on both the current and prior PET/CT of 09/2019. ?? SKELETON/EXTREMITIES: Normal activity in all regions of the ax ial and visualized appendicular skeleton. An 11 mm highly FDG avid nodule in the r ight antecubital region (axial image 133) with SUV max of 13.6. ?? IMPRESSION 1. Extensive neva involvement by lympho ma and neck, chest, abdomen, and pelvis as described above. 2. Diffusely increased activity througho ut the spleen which is increased in size compared to prior PET/CT, consistent with splenic involvement by lymphoma. 3. Notable small FDG avid lymph nodes wi th a very high degree of FDG uptake (SUV max greater than 12) with product support representative nodes detailed above, are highly suspicious for lymphoma transformation and woul d be amenable to CT-guided biopsy if cli nically indicated. 4. Large right pleural effusion, unchang ed compared to prior CT of 02/16/2021. ECHO Angelita EF LDH normal 171 03/19/2021 BMBx Bone marrow aspirate, biop sy , peripheral smear : 1. ??Follicular lymphoma, by history. 2. ??Normocellular marrow (40%) with ?? maturing trilineage hematopoiesis and involved ??by paratrabecular lymphoid aggregates c/w ??F ?? ollicular lymphoma, involving 40% of the ??cellularity. ??Cytogenetics pending. See discussion. 04/09/[address] biopsy DIAGNOSIS Lymph node tissue, biopsy: Follicular lymphoma, Follicular, low gra de ( grade 1-2 of 3). No transformation ??present. DISCUSSION The lymph node architecture is effaced b y a back-to back follicles. The follicles ??comprise of mostly centrocytes and no significant centroblasts. There are <15 ??centroblasts ??per hpf. ANTIBODY ?RESULT/COMMENT CD3 ? Positive in background T cells CD20 ?Positive in B cells CD21 ?Positive in follicle den dritic cells Ki67 ?Positive in 20-30% of in trafollicular ??B cells BCL-2 ? Diffusely positive Started BR 04/22/21 07/07/21 CT Chest IMPRESSION 1. No pulmonary airspace consolidation, nodule, or new metastatic disease. 2. Resolved right pleural effusion. 3. Decreased size of mediastinal and axi llary lymph nodes. 09/16/21 C#6 BR 10/20/21 PET-6 IMPRESSION No active lymphoma (Deauville score 2). Plans for MR Hypertension 09/18/2019 Hypothyroidism 09/18/2019 Hypercholesterolemia 09/18/2019 Encounters Date Type Specialty Care Team Description 05/19/2022 Telephone Hematology and Izzy Mayer RN Other (devang garces) Oncology 04/21/2022 Infusion Hematology and Grade 2 folli cular Oncology lymphoma of lym ph nodes of multip le regions 03/26/2022 Infusion Hematology and Grade 2 folli cular Oncology lymphoma of lym ph nodes of multip le regions 02/24/2022 Infusion Hematology and Grade 2 folli cular Oncology lymphoma of lym ph nodes of multip le regions 02/24/2022 Office Visit Hematology and Jackie Dillon, Anemia, unspecified type; Oncology [employer] Recurrent UTI ( urinary tract infection) from Last 3 Months Immunizations Name Administration Dates Next Due Influenza Vaccine, Whole 05/14/2008 Social History Tobacco Use Types Packs/Day Years [...] Assigned at Date Recorded Not on file Last Filed Vital Signs Vital Sign Reading [...] Mass Index 33.31 04/21/2022 9:57 AM EDT Plan of Treatment Upcoming Encounters Date Type Specialty Care Team Description 06/16/2022 Office Visit Hematology and Oncology Jackie Dillon, [employer]SEMBLER [facility] DE[facility]. [place], [place] 0375 (Wo rk) 06/16/2022 Infusion Hematology and Oncology Health Maintenance Due Date Last Done Comments Covid-19 Vaccine (#1) 1950 Tdap adult 1967 Tetanus vaccine 1967 Breast Cancer Share Decision Needed 1988 Colonoscopy 1993 Breast Cancer screening 1998 Zoster vaccine (1 of 2) 1998 Advance Directive 2003 Bone Density Scan 2013 Pneumoccocal Vaccine: 65+ (1 - PCV) 2013 Influenza (Flu) vaccine (1 of 1 - 03/11/2022 05/14/2008 Influenza standard series) Hepatitis C Screening Completed 03/13/2021, 09/18/2019 Medical Devices Implanted Type Area Contact Lens Fitter Device Shelf Model / Identifier Expiration Serial / Date Lot Port Infusion 5fr Cath Power Injectable Lp Ct Plastic ([id number])-03/13/2021 IMPLANTS Right: [employer] - [id number] / Implanted: Qty: 1 on 03/13/2021 by Krishna Rivas, PA Chest MEDCOMP IN / Wall [id number] Description: 8FR MINI POWER PORT IN RIGH T IJ Procedures Procedure Name Priority Date/Time Associated Diagnosis Comme nts LAB SCAN 04/21/2022 12:00 AM Results for this EDT procedure are i n the results section. CBC (WITH DIFF) Routine 02/19/2022 Results for this procedure are i n the results section. LAB SCAN 02/19/2022 12:00 AM Results for this EDT procedure are i n the results section. from Last 3 Months Results SCAN DOC: LAB (04/21/2022 12:00 AM EDT)Only the most recent of2 resultswithin the time period is included. Narrative 04/21/2022 12:00 AM EDT This result has an attachment that is no t available. Ordered by an unspecified provider. Scanning Provider MEDIA MGR SCAN EXT ORDR/RSLT CBC (with Diff) (02/19/2022) P athologist Signature WBC 3.53 Hemoglobin 10.7 Hematocrit 31.7 Platelets 200 Neutr Abs (ANC) 1.96 Creatinine 0.8 Potassium 4.0 Iron 82 TIBC 335 Transferrin 24 Ferritin 57 AST 20 ALT 26 LDH 235 Total Bilirubin 0.5 Specimen (Source) Anatomical Location Collection Method / Collectio n Time Received Time / Laterality Volume Blood 02/19/2022 Historical Provider HEMATOLOGY ORDERABLES from Last 3 Months Insurance Payer Benefit Plan / Subscriber ID Effective Dates Phone Addre ss Type Group CIGNA CIGNA OPEN [id number] 2008-Present [phone] PO GILDA X [id number] ACCESS PLUS WILLIAM ADLER [id number] (Home) RD [phone] [place] PATRICIO (Work) [phone] Advance Directives Latest Code Status on File Code Status Date Activated Date Inactivated Comments Attempt Cardiopulmonary Resuscitation - 03/20/2021 4:39 PM 021 5:28 PM Inpatient Code Status decision made by: Patient Attempt Cardiopulmonary Resuscitation - 03/20/2021 2:09 PM 021 4:39 PM Inpatient Code Status decision made by: Patient Attempt Cardiopulmonary Resuscitation - 03/13/2021 10:20 AM 03/14/20 4:33 AM Inpatient Code Status decision made by: Patient Attempt Cardiopulmonary Resuscitation - 02/24/2021 10:28 AM 2020 4:39 AM Inpatient Code Status decision made by: Patient Care Teams Field Gauger Relationship Specialty Start Date End Date Sonali Joe APRN PCP - General Family Medicine 10/19/21 [address] [place] [address]
--- OUTSIDE RECORDS SUMMARY | 2022-05-21 01:01 | XMS_ITS ---
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 79 ; [id number] Deviated nasal s eptum J34.2 and [place] tube dysfunction H69. 80 [facility] [address] [place] [address] Jun, Encounte r for screening [place], [place] laboratory te sting for [id number] COVID-19 virus Z 20.822 [facility] [address] Sep, Road [address] [place] [id number] [facility] [address] Sep, Road [address] [place] [id number] [facility] [address] Sep, B-c ell lymphoma of lymph Road [address] nodes of neck, u nspecified [place] B-cell lymphoma type [id number] C85.11 [facility] [address] [facility] Sep, B-c ell lymphoma of lymph Road [address] nodes of neck, u nspecified [place] B-cell lymphoma type [id number] C85.[address] Aug, Supraclavic ular [address] [place] lymphadenopat hy R59.[id number] Aug, Association [place], [place] [id number] [facility] [address] Aug, Sup raclavicular [address] lymphadenopathy R59.0 [place], [place] [id number] [facility] [address] [place] [address] Jan, Acute al lergic rhinitis Road [place] J30.[id number] Sep, Incontine nce [address] [place], [place] [id number] IMMUNIZATIONS No Known Immunizations SOCIAL HISTORY Qualifiers Date Former Smoker REASON FOR REFERRAL FUNCTIONAL STATUS PLAN OF CARE Activity Details Follow Up 4 weeks Reason:Hearing test, HL vs ETD VITAL SIGNS Height 63 in 2022-01-15 Height 63 in 2019-09-17 Height 63 in 2019-08-29 Height 63 in 2019-01-24 Height 63 in 2009-09-23 Weight 177 lbs 2022-01-15 Weight 190.0 lbs 2019-09-17 Weight 190.2 lbs 2019-08-29 Weight 190 lbs 2019-01-24 Weight 190 lbs 2009-09-23 Temperature 98.1 degrees Fahrenheit 2019-09-17 Temperature 98.6 degrees Fahrenheit 2019-08-29 Temperature 98.0 malik degrees Fahrenheit 2019-01-24 Heart Rate 72 /min 2019-09-17 Heart Rate 68 /min 2019-08-29 Heart Rate 63 /min 2019-01-24 Oximetry 98 2019-09-17 Oximetry 98 2019-08-29 Oximetry 98 2019-01-24 Respiratory Rate 18 /min 2019-01-24 BMI 31.35 kg/m2 2022-01-15 BMI 33.65 kg/m2 2019-09-17 BMI 33.69 kg/m2 2019-08-29 BMI 33.65 kg/m2 2019-01-24 BMI 33.65 kg/m2 2009-09-23 Blood pressure systolic 129 mm Hg 2019-08-29 Blood pressure diastolic 78 mm Hg 2019-08-29 MEDICATIONS Medication Instructions Dosage Frequency Start End Duration Statu s Date Date Nystatin 421996 Mouth/Throat 4 ml 6h 30 day(s) A ctive UNIT/ML Four times a day Losartan Potassium Orally Once a 1 tablet 24h 30 day (s) Active 100 MG day Effexor XR 75 MG Orally Once a 1 capsule 24h 30 day( s) Not-Taki day with food ng Multivitamins Orally Once a 1 tablet 24h Not -Taki day ng Synthroid 75 MCG Orally Once a 1 tablet 24h Active day every morning on an empty stomach krill oil Active CoQ-10 Not-Taki ng Rhinocort Allergy 32 Nasally Once a 1 spray 24h Jan, d ay(s) Not-Taki MCG/ACT day in each 2018 ng nostril Venlafaxine HCl ER Orally Once a 1 capsule 24h 30 da y(s) Active 37.5 MG day with food Tolterodine Tartrate Orally Once a 1 capsule 24h 30 day(s) Active ER 4 MG day Cardizem LA 300 MG Orally Once a 1 tablet 24h 30 day (s) Active day Atorvastatin Calcium Orally Once a 1 tablet 24h Active 10 MG day Toprol XL 50 MG Orally Once a 1 tablet 24h 30 day(s) Not-Taki day ng Vitamin D Active Ventolin HFA 90 Inhalation 1 puff as 4h Act woo MCG/ACT every 4 hrs needed hydroCHLOROthiazide Orally Once a 1 tablet 24h 30 da y(s) Active 25 MG day PROCEDURES Procedure Date Ordered Result Body Site CORONAVIRUS AG IA Jul 10, 2021 [facility] OUT PT CLINIC COLLECTION FOR SARS COV Jul 10 EXCISION LYMPH NODE DYSON Sep 06, 2019 RESULTS Name Result Date Reference Range COVID 19 (POS) SOFIA2 SARS Ag 2021-07-10 Flu A Flu B SARS negative CBC, WITH AUTO DIFF 2019-09-06 WBC 9.2 4.8-10.8 RBC 3.90 4.20-5.40 HGB 12.1 12.0-16.0 HCT 34.7 37.0-47.0 MCV 89.0 81.0-99.0 MCH 31.0 27.0-31.0 MCHC 34.9 32.0-37.0 RDW-CV 13.4 11.5-14.5 PLT 214 130-400 MPV 9.6 7.4-10.4 NE% 43.8 42.2-75.2 LY% 47.1 20.5-51.1 MO% 6.0 1.7-9.3 EO% 2.4 0.9-2.9 BA% 0.4 0.0-0.8 NE# 4.0 1.4-6.5 LY# 4.3 1.2-3.4 MO# 0.6 0.1-0.6 EO# 0.2 0.0-0.2 BA# 0.0 0.0-0.2 CULTURE SURGICAL w/GS 2019-09-06 CULTURE ANAEROBIC 2019-09-06 REASON FOR VISIT URO- Recurrent UTI, AUD- PFP 3;00, ENT- recheck ears w/ audio, PFP EST PATIENT (S), PFP Add Audio, ENT - Otitis media, right., pfp New Consult, FILLER- marionette lines consult, RAUL-exposure/symptoms, xmas day, cheomo lymphmona, SOB tube removed a fw days a go, REEVES and fatigue, vaccinated and boosted.,Point of Service COVID 19 Screening, records, Labs , CHRIS post op, test results, Excision of left supraclavicular mass, pre-op phone call, CHRIS- , Pt states has 2 lumps on her collar bone. States it started as 1 now has multiplied, Pt has had an MRI and states they coudn't figure out what it was, Pt c/owet cough x3 weeks. Pt sts she has had bronchitis in the past and wants to make sure she doesn't have it. pt. denies any fever, n/v, chills, or abdominal pain. Pt sts taking Tesslon Pearls for the cough with minimal relief. last does last night., Mask placed on pt upon arrival. 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
--- OUTSIDE RECORDS SUMMARY | 2022-05-21 01:01 | XMS_ITS | Encounter Summary ---
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 [address] Referral ID Status Reason Start Date Expiration Date Visits V isits Requested Authorized [id number] Authorized 12/21/2021 12/28/2022 20 20 Encounter Details Date Type Department Care Team Description 12/28/2021 Infusion Hematology Oncology at [facility] rico 2 follicular lymphoma [facility] of lymph nodes of multiple [address] [place] [address] [phone] Social History Tobacco Use Types [...] Sign Reading Time Taken Comments Blood Pressure 146/66 12/28/2021 8:32 AM EDT Pulse 65 12/28/2021 8:32 AM EDT Temperature 35.4 ??C (95.7 ??F) 12/28/2021 8:32 AM EDT Respiratory Rate 16 12/28/2021 8:32 AM EDT Oxygen Saturation 100% 12/28/2021 8:32 AM EDT Inhaled Oxygen Concentration - - Weight 82.6 kg (182 lb 3.2 oz) 12/28/2021 8:32 AM EDT Height 160 cm (5' 2.99) 12/28/2021 8:32 AM EDT Body Mass Index 32.28 12/28/2021 8:32 AM EDT documented in this encounter Progress Notes Brenda Mccoy RN - 12/28/2021 8:30 AM EDT INFUSION THERAPY ADMINISTRATION NOTES DIAGNOSIS: Follicular Lymphoma CYCLE #: 1 Day 1 REASON FOR VISIT: Rituxan maintenance SUBJECTIVE Brian offers no complaints. OBJECTIVE LAB DATA: labs last done on 12/09/2021 and found adequate for treatment IV Access: Mediport Right Chest, Flushed with 20cc NS and 500 units Heparin and de accessed Pre administration: Chemotherapy orders independently verified for drug name, route, and dosage per patient's height, weight and BSA by Brenda Luo RN and pharmacist on-site. Rituxan - given at Rapid Rate as it was last given on 09/16/2021 and 09/17/2021 at rapid rate. REACTIONS (DESCRIPTION, TIME, INTERVENTION AND EFFECTIVENESS) none ASSESSMENT Ms. Bliss was awake, alert and tolerated treatment well. PLAN Return to clinic per schedule. Patient was reminded to call in the interim with any questions/concerns. documented in this encounter Plan of Treatment Upcoming Encounters Date Type Specialty Care Team Description 06/16/2022 Office Visit Hematology and Oncology Jackie Dillon, BUSINESS TRANSFORMATION CONSULTANT [facility] HEMATOLOGY/ONCOL SHADIA DEPT. [place], [place] [address] (Wo rk) 06/16/2022 Infusion Hematology and Oncology documented as of this encounter Visit Diagnoses Diagnosis 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 documented in this encounter Administered Medications Inactive Administered Medications - up to 3 most recent administrations Medication Order MAR Action Action Date Dose Rate Site acetaminophen (Tylenol) tablet 650 Given 12/28/2021 8:55 AM EDT 650 mg mg 650 mg, Oral, ONCE, 1 dose, On Tue12/28/21 at 0915, Administer prior to riTUXimab., Routine dexAMETHasone (Decadron) (10 mg/mL) injection Given 8:56 AM EDT 10 mg 10 mg 10 mg, Intravenous, ONCE, 1 dose, On Tue12/28/21 at 0915, Administer prior to riTUXimab diphenhydrAMINE (Benadryl) capsule 25 mg Given 12/28/2021 8:55 AM EDT 25 mg 25 mg, Oral, ONCE, 1 dose, On Tue12/28/21 at 0915, Routine heparin (pf) (porcine) (100 units/mL) Given 12/28/2021 11:18 AM EDT 500 Units flush 5 mL syringe 500 Units 500 Units, Intravenous, ONCE PRN, Starting on Tue12/28/21 at 0847, Until Tue12/28/21 at 1514, Line Care, Refer to Intravenous (IV) Procedure: Accessing Implanted Vascular Access Devices (164) procedure and/or Intravenous (IV) Job Aid: Adult Flushing & Catheter Care (3334) job aid for additional information regarding guidelines and administration., Routine riTUXimab-pvvr (Ruxience) 700 mg in sodium New Bag 12/28 9:38 AM EDT 700 mg chloride 0.9% 350 mL infusion (malignant indication) 700 mg, Intravenous, ONCE, 1 dose, On Tue12/28/21 at 1015, Administer Per Protocol., Patient is a candidate for rapid infusion riTUXimab? Yes sodium chloride 0.9 % (flush) (BD PosiFlush Given 12/10 11:17 AM EDT 20 mLs Normal Saline 0.9) flush 5-20 mL 5-20 mL, Intravenous, EVERY 1 MIN PRN, Starting on Tue12/28/21 at 0847, Until Tue12/28/21 at 1514, Line Care, Flush pertains to all indwelling lines. Flush per protocol found in the job aid using the link provided on this medication record. Refer to Intravenous (IV) Job Aid: Adult Flushing & Catheter Care (0751) job aid for additional information regarding guidelines and administration., Routine documented in this encounter Care Teams First Front Ventilator Relationship Specialty Start Date End Date Sonali Joe APRN PCP - General Family Medicine 10/19/21 14 [place] [address] documented as of this encounter
--- OUTSIDE RECORDS SUMMARY | 2022-05-21 01:01 | XMS_ITS | Encounter Summary ---
:1950 Author Organization [place] [address] Care Team Providers Name Role Phone HeathSonali hamilton Yvette CELESTE Primary Care Provider Encounter Details Date Type Department Care Team Description 12/16/2021 Office Visit Hematology/Oncology Bina Dunbar 2 follicular at [facility] MD Luis lymphoma of [address] nodes of multiple [place], [place] DR eboni [phone] HEMATOLOGY/ONCOLOGY [phone] DEPT. [place], [place] [address] (Wo rk) Social History Tobacco [...] Sign Reading Time Taken Comments Blood Pressure 143/69 12/16/2021 11:34 AM EDT Pulse 75 12/16/2021 11:34 AM EDT Temperature 36.3 ??C (97.3 ??F) 12/16/2021 11:34 AM EDT Respiratory Rate 18 12/16/2021 11:34 AM EDT Oxygen Saturation 99% 12/16/2021 11:34 AM EDT Inhaled Oxygen Concentration - - Weight 83.3 kg (183 lb 9.6 oz) 12/16/2021 11:34 AM EDT Height 160 cm (5' 2.99) 12/16/2021 11:34 AM EDT Body Mass Index 32.53 12/16/2021 11:34 AM EDT documented in this encounter Progress Notes Bina Dunbar MD - 12/16/2021 1:00 PM [place] [address] HEMATOLOGY PATIENT EVALUATION Patient Active Problem List Diagnosis ??? Pleural effusion ??? 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 Biopsy at [facility]. 09/06/19 LN Interpretation at [facility] Outside slide(s) labeled [id number], collection date 09/06/2019. Lymph node, supra clavicular [...] and BR followed by MR. 03/04/21 BMBX [id number] ? Location: [facility] ??SPECIMEN RESULTS Bone marrow aspirate, biopsy , peripheral smear : 1. ??Follicular lymphoma, by history. 2. ??Normocellular marrow (40%) with maturing trilineage hematopoiesis and involved by ??paratrabecular lymphoid aggregates c/w ??Follicular lymphoma, involving 40% of the ??cellularity. SYNOPSIS OF ANCILLARY STUDY RESULT(S) Cytogenetic analysis: Karyotyping, [facility]: ??46,XX[20] 03/17/21 PET EXAMINATION: NM PET CT STANDARD SKULL BASE TO MID-THIGH COMPARISON: CT chest 02/12/2021, CT chest abdomen and pelvis 10/17/2020, and PET/CT 10/04/2019 HEAD/NECK: FDG avid adenopathy in the bilateral upper and lower cervical and supraclavicular regions and within the bilateral parotids, increased in size and number compared to prior PET/CT of 09/2019. Plant Chief lymph node within the highest FDG uptake in the left level 2 region measures 10 mm with SUV max of 18.7 (axial image 26). ?? CHEST: FDG avid adenopathy in the bilateral axillary and bilateral mediastinal and hilar regions, similar in size compared to CT chest of 10/17/2020. Plant Chief lymph node with the highest FDG uptake [...] size compared to prior CT of 10/17/2020. Plant Chief adenopathy in the highest FDG uptake in [...] uptake (SUV max greater than 12) with telephone services sales representative nodes detailed above, are highly suspicious for lymphoma transformation and would be amenable to CT-guided biopsy if clinically indicated. 4. Large right pleural effusion, unchanged compared to prior CT of 02/16/2021. ECHO [facility] EF LDH normal 171 03/19/2021 BMBx Bone [...] in consultaion from Dr. Jared Jones, at [facility] for follicular lymphoma. It was a delight to see Brian back in clinic today. She completed 6 cycles chemo. She had wanted tofinish the school year and take a break from chemo before starting maintenance Rituxan. 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 She returns today to check-in, and determine the start of her maintenance rituximab. Went to [place] and saw son, Skyler. They are hoping to get . Got COVID infection while in [place]. Stayed an extra week. Got paxlivid. Tolerated very well - head cold and tired Her liquid nitrogen burn got infected then UTI and then otitis with ATB for each. Now w/ nystatin. Because of the COVID peak in [place] and [place], Brian chose to not continue working for therest of this year. She may return in the fall depending on the COVID situation. We have provided herwith a letter splinting while she cannot work. PMHX: Hypertension Hyperlipidemia Hypothyroidism Anxiety - nicely [...] wt loss with WW Skin rashes or petechiae: see photos below from recent liquid nitrogen Musculoskeletal complaints:No Extremities: Negative upper and lower bilaterally Neurologic symptoms:No Mental Status changes: neg Mood: Anxiety nicely controlled w/ effexor. Sleep: Some difficulty sleeping + snoring - reports she does not stop breathing. MEDS: Outpatient Medications Marked as Taking for the 12/16/21 encounter (Office Visit) with Bina Dunbar MD Medication Sig Dispense Refill ??? nystatin (Mycostatin) 100,000 unit/mL Suspension SWISH AND SWALLOW 5 ML BY MOUTH FOUR TIMES A DAY. ??? meclizine (Antivert) 12.5 mg Tablet Take [...] HISTORY Personal: to [employer]. School nurse at [employer]. Lives in [place]. Currently doing Wt Watcher w/ school friends. Loves to cook and read and shop with friends and visit son. One son, Skyler, 36 yo in [place]. He is engaged! She did the [place] Plunge for [employer] at [place]. Aug 2019! works at [employer] Work history: still a school nurse (X 21 years) ETOH: wine nightly Smoking: Quit 30 years ago Marijuana or illicit drug use: none HIPPA Contact Permission: OK to leave message on home or cell phone: OK to leave medical information on home or cell phone: Would patient benefit from social work consult: PHYSICAL EXAM BP 143/69 (Patient Position: Sitting) Pulse 75 Temp 36.3 ??C (97.3 ??F) (Temporal) Resp 18 Ht 160 cm (5' 2.99) Wt 83.3 kg (183 lb 9.6 oz) SpO2 99% BMI 32.53 kg/m?? Body surface area is 1.92 meters [...] spinal or chest wall tenderness. LABORATORY STUDIES No results found for this or any previous visit (from the past 72 hour(s)). 12/09/21 00:00 WBC 7.15 (E) Hemoglobin 10.9 (E) Hematocrit 31.9 (E) Platelets 214 (E) Neutr Abs (ANC) 4.9 (E) Creatinine 1 (E) LDH 151 (E) Iron 54 (E) TIBC 346 (E) Ferritin 55 (E) PATHOLOGY: 09/06/19 LN Interpretation at [facility] Outside slide(s) labeled [id number], collection date 09/06/2019. Lymph node, supra clavicular [...] CD19+/Cd20+/CD10 positive kappa restricted B cell population. [facility] Path 09/06/19 Path report in care everywhere. Reports follicular lymphoma grade 1-2. Immunoperoxidase stains were performed on this case to further characterize the lesion. ANTIBODY(CLONE)(BLOCK):RESULT CD3 (SP7, [employer]) (A3): Highlights background T-cells PAX-5 (1EW, Leica) (A3): Highlights neoplastic cells BCL-2 Oncoprotein (124, [place]) (A3): Positive in neoplastic cells Ki67 (MIB-1) [...] uptake (SUV max greater than 12) with telephone services sales representative nodes detailed above, are highly [...] effusions. ?? 04/22/21- started Rituxan/Bendamustine x 6 cycles. PET-6 negative 10/20/21. Plans to start MR December 2021. I explained the rationale of maintenance rituxan. Several trials have shown that maintenance rituxanprolongs the time to relapse (prolongs the disease free survival). The PRIMA study gave rituxan every 2 mos for 2 years . It reported: higher rates of progression free survival at 36 months (75 vs 58%). Higher percentage of CR and uCR at 24 mos 972 vs 52%). The trial was just up dated in JCO 2019 witha 4.1-year progression free survival in the observation arm compared to 10.5 years in the MR arm. Todate a survival advantage was not observed. There was a higher rate of infection in the rituxan arm. I discussed the benefits and risks of rituxan with the patient. These include but are not limited tofever night after infusion and infusional reactions that include but are not limited to rash, hives,anaphylaxis, shortness of breath, chest pain, rigors, bone pain, fever, hepatitis B reactivation andcase reports of WOOD MODEL MAKER infections. she agreed to proceed with therapy. ID - recent ATB for cellultits, otitis and UTI. Now w/ subsequent thrush and on nystatin. ?? Anemia - she has become more anemic in the last 3-4 months. This is more significant than one would expect with bendamustine. Full anemia work-up was negative. Improving. Iron studies today - low but no need for supplement - recheck in Feb 2022. ?? COVID - vaccinated and boosted before chemo. Second booster received. Starla received November 2021. COVID infection while in [place] spring 2021. Got atntivral therapy. Work - stopped early due to COVID risk will re-consider working in the fall depending on COVId risk. Plan: ?? Evusheld received November 2021. ?? COVID vaccine #4 received AFTER Evusheld ?? Check iron studies w/ next appt. ?? Labs and appt in 2 mos to re-assess her anemia - cbc,cmp, ldh and iron studies ?? Finished working at the school early due to the spike in COVID. Letter previously provided ?? MR to start week of 12/30 using 12/09/21 labs. Rapid. RTC 8 weeks later for MR#2. total time: time in counselling: Copy Sonali Joe APRN documented in this encounter Miscellaneous Notes Addendum Note - Bina Dunbar MD - 12/16/2021 11:30 AM EDT Addended by: BINA DUNBAR on: 12/16/2021 12:17 PM Modules accepted: Orders documented in this encounter Plan of Treatment Upcoming Encounters Date Type Specialty Care Team Description 06/16/2022 Office Visit Hematology and Oncology Jackie Dillon APRN [facility] HEMATOLOGY/ONCOL SHADIA DEPT. [place], [place] [address] (Wo rk) 06/16/2022 Infusion Hematology and Oncology Scheduled Orders Name Type Priority Associated Diagnoses Order S chedule CBC (with Diff) Lab STAT Grade 2 follicular As Nee ded for 6 lymphoma of lymph Occurrence s starting nodes of multiple 12/16/2021 until regions 12/16/2022 Comprehensive metabolic Lab STAT Grade 2 follicula r As Needed for 6 panel (non-fasting) lymphoma of lymph Occ urrences starting nodes of multiple 12/16/2021 until regions 12/16/2022 Ferritin Lab STAT Grade 2 follicular As Needed for 6 lymphoma of lymph Occurrence s starting nodes of multiple 12/16/2021 until regions 12/16/2022 Lactate Dehydrogenase Lab STAT Grade 2 follicular As Needed for 6 lymphoma of lymph Occurrence s starting nodes of multiple 12/16/2021 until regions 12/16/2022 Iron and TIBC Lab STAT Grade 2 follicular As Neede d for 6 lymphoma of lymph Occurrence s starting nodes of multiple 12/16/2021 until regions 12/16/2022 documented as of this encounter Procedures Procedure Name Priority Date/Time Associated Diagnosis Comme nts CBC (WITH DIFF) Routine 12/09/2021 Results for this procedure are in the resu lts section. documented in this encounter Results CBC (with Diff) (12/09/2021) P athologist Signature WBC 7.15 Hemoglobin 10.9 Hematocrit 31.9 Platelets 214 Neutr Abs (ANC) 4.9 Creatinine 1 Iron 54 TIBC 346 Ferritin 55 LDH 151 Specimen (Source) Anatomical Location Collection Method / Collectio n Time Received Time / Laterality Volume Blood 12/09/2021 Historical Provider HEMATOLOGY ORDERABLES documented in this encounter Visit Diagnoses Diagnosis 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 documented in this encounter Care Teams Picking Tech Relationship Specialty Start Date End Date Sonali Joe APRN PCP - General Family Medicine 10/19/21 14 [place] [address] documented as of this encounter
--- OUTSIDE RECORDS SUMMARY | 2022-05-21 01:01 | XMS_ITS | Encounter Summary ---
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 [address] Referral ID Status Reason Start Date Expiration Date Visits Requ ested Visits Authorized [id number] Closed 04/22/2021 12/18/2021 18 18 Encounter Details Date Type Department Care Team Description 09/17/2021 Infusion Hematology Oncology at [facility] 2 follicular lymphoma [facility] of lymph nodes of [address] [phone] Social History Tobacco Use Types Packs/Day Years [...] Sign Reading Time Taken Comments Blood Pressure 150/78 09/17/2021 2:32 PM EST Pulse 88 09/17/2021 2:32 PM EST Temperature 36.7 ??C (98 ??F) 09/17/2021 2:32 PM EST Respiratory Rate 16 09/17/2021 2:32 PM EST Oxygen Saturation 100% 09/17/2021 2:32 PM EST Inhaled Oxygen Concentration - - Weight 85.4 kg (188 lb 3.2 oz) 09/17/2021 2:32 PM EST Height 160 cm (5' 2.99) 09/17/2021 2:32 PM EST Body Mass Index 33.35 09/17/2021 2:32 PM EST documented in this encounter Progress Notes Leticia Villela RN - 09/17/2021 2:30 PM EST INFUSION THERAPY ADMINISTRATION NOTES DIAGNOSIS: Follicular Lymphoma CYCLE #: 6 Day 2 REASON FOR VISIT: Bendamustine & Onpro SUBJECTIVE Brian offers no complaints. OBJECTIVE LAB DATA: WBC 4.16, HGB 9.1, HCT 26.4, PLT 171, ANC 2.15, BUN 22, Cr 1.0 IV Access: Mediport Right Chest, accessed from treatment yesterday. Blood return present and flusheseasily. Pre administration: Chemotherapy orders independently verified for drug name, route, and dosage per patient's height, weight and BSA by Leticia Villela, MARI and pharmacist on-site. OnPro applied to [facility] at 1450. Due to start deploying dose of medication at 1750. Patient instructed to remove at 1850 when meter reads empty and light is solid green. Verbal and written instruction given to patient. REACTIONS (DESCRIPTION, TIME, INTERVENTION AND EFFECTIVENESS) none ASSESSMENT Ms. Bliss was awake, alert and tolerated treatment well. PLAN Return to clinic as scheduled. documented in this encounter Plan of Treatment Upcoming Encounters Date Type Specialty Care Team Description 06/16/2022 Office Visit Hematology and Oncology Jackie Dillon, TRANSFER ENGINEER [facility] HEMATOLOGY/ONCOL VALER[place] DEPT. [place], [place] [address] (Wo rk) 06/16/2022 Infusion Hematology and Oncology documented as of this encounter Visit Diagnoses Diagnosis 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 documented in this encounter Administered Medications Inactive Administered Medications - up to 3 most recent administrations Medication Order MAR Action Action Date Dose Rate Site bendamustine (Bendeka) 173 mg New Bag 09/17/2021 2:45 PM 173 mg 341.5 mL/hr in sodium chloride 0.9% 56.92 EST mL infusion 173 mg (rounded from 172.8 mg = 90 mg/m2/dose ? 1.92 m2 Treatment Plan BSA from Recorded weight), Intravenous, ONCE, 1 dose, On Yocasta 09/17/21 at 1530, Administer over 10 Minutes, The resulting final concentration of bendamustine in the infusion bag should be between 1.85 - 5.6 mg/mL. Warning Vesicant/Irritant Medication , This agent is restricted to outpatient use. Is this drug being given as an outpatient? Yes dexamethasone (Decadron) tablet 10 mg Given 09/17/2021 2:40 PM EST 10 mg 10 mg, Oral, ONCE, 1 dose, On Yocasta 09/17/21 at 1430, Administer prior to chemotherapy, Routine heparin (pf) (porcine) (100 units/mL) Given 09/17/2021 2:[address] 500 Units flush 5 mL syringe 500 Units 500 Units, Intravenous, ONCE PRN, Starting on Yocasta 09/17/21 at 0000, Until Yocasta 09/17/21 at 1703, Line Care, Refer to Intravenous (IV) Procedure: Accessing Implanted Vascular Access Devices (654) procedure and/or Intravenous (IV) Job Aid: Adult Flushing & Catheter Care (5065) job aid for additional information regarding guidelines and administration., Routine pegfilgrastim (Neulasta Onpro) (6 Given 09/17/2021 2:46 PM EST 6 mg Right Arm mg/0.6 mL) injection kit 6 mg 6 mg, Subcutaneous, ONCE, 1 dose, On Yocasta 09/17/21 at 1430, Allow the prefilled syringe co-packaged with the on-body injector to reach room temperature at least 30 minutes prior to administration., Routine, This agent is restricted to outpatient use. Is this drug being given as an outpatient? Yes sodium chloride 0.9 % (flush) (BD PosiFlush Given 09/17/2021 2:58 PM EST 20 mLs Normal Saline 0.9) flush 5-20 mL 5-20 mL, Intravenous, EVERY 1 MIN PRN, Starting on 09/16/21 at 1541, Until Yocasta 09/17/21 at 1540, Line Care, Flush pertains to all indwelling lines. Flush per protocol found in the job aid using the link provided on this medication record. Refer to Intravenous (IV) Job Aid: Adult Flushing & Catheter Care (8772) job aid for additional information regarding guidelines and administration., Routine documented in this encounter Care Teams Fashion Design Professor Relationship Specialty Start Date End Date None PCP - General 07/07/21 10/18/21 None documented as of this encounter
--- OUTSIDE RECORDS SUMMARY | 2022-05-21 01:01 | XMS_ITS | Encounter Summary ---
:1950 Author Organization [facility] [place] [address] Care Team Providers Name Role Phone HeathSandra hamiltonrina Yvette CELESTE Primary Care Provider Encounter Details Date Type Department Care Team Description 10/21/2021 Office Visit Hematology/Oncology Bina Monique [address] [facility] MD Luis lymphoma of [address] nodes of multiple [place], [place] [address] [place] [phone] HEMATOLOGY/ONCOLOGY [phone] DEPT. [place], [place] [address] (Wo rk) Social History Tobacco [...] Sign Reading Time Taken Comments Blood Pressure 147/74 10/21/2021 9:28 AM EDT Pulse 79 10/21/2021 9:28 AM EDT Temperature 36.3 ??C (97.3 ??F) 10/21/2021 9:28 AM EDT Respiratory Rate 18 10/21/2021 9:28 AM EDT Oxygen Saturation 100% 10/21/2021 9:28 AM EDT Inhaled Oxygen Concentration - - Weight 83.5 kg (184 lb) 10/21/2021 9:28 AM EDT Height 160 cm (5' 2.99) 10/21/2021 9:28 AM EDT Body Mass Index 32.6 10/21/2021 9:28 AM EDT documented in this encounter Progress Notes Bina Monique MD - 10/21/2021 9:30 AM EDT Images from the original note were not included. [facility] [place] [address] HEMATOLOGY PATIENT EVALUATION Patient Active Problem List Diagnosis ??? Pleural effusion ??? 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 Biopsy at [place]. 09/06/19 LN Interpretation at [facility] Outside slide(s) labeled [id number], collection date 09/06/2019. Lymph node, supra clavicular [...] and BR followed by MR. 03/04/21 BMBX [id number] ? Location: [facility] ??SPECIMEN RESULTS Bone marrow aspirate, biopsy , peripheral smear : 1. ??Follicular lymphoma, by history. 2. ??Normocellular marrow (40%) with maturing trilineage hematopoiesis and involved by ??paratrabecular lymphoid aggregates c/w ??Follicular lymphoma, involving 40% of the ??cellularity. SYNOPSIS OF ANCILLARY STUDY RESULT(S) Cytogenetic analysis: Karyotyping, -[place]: ??46,XX[20] 03/17/21 PET EXAMINATION: NM PET CT STANDARD SKULL BASE TO MID-THIGH COMPARISON: CT chest 02/12/2021, CT chest abdomen and pelvis 10/17/2020, and PET/CT 10/04/2019 HEAD/NECK: FDG avid adenopathy in the bilateral upper and lower cervical and supraclavicular regions and within the bilateral parotids, increased in size and number compared to prior PET/CT of 09/2019. Convex Grinder lymph node within the highest FDG uptake in the left level 2 region measures 10 mm with SUV max of 18.7 (axial image 26). ?? CHEST: FDG avid adenopathy in the bilateral axillary and bilateral mediastinal and hilar regions, similar in size compared to CT chest of 10/17/2020. Convex Grinder lymph node with the highest FDG uptake [...] size compared to prior CT of 10/17/2020. Convex Grinder adenopathy in the highest FDG uptake in [...] uptake (SUV max greater than 12) with customer contact representative nodes detailed above, are highly suspicious for lymphoma transformation and would be amenable to CT-guided biopsy if clinically indicated. 4. Large right pleural effusion, unchanged compared to prior CT of 02/16/2021. ECHO [place] EF LDH normal 171 03/19/2021 BMBx Bone [...] Support person(s) : Geovanny; son, Skyler. Brian Blsis is a 71 y.o. year old female being seen for Follow up of follicular lymphoma. she is referred in consultaion from Dr. Jared Jones, at [facility] for follicular lymphoma. It was a delight to see Brian back in clinic today. She completed 6 cycles chemo. Here for C#6. To review final PET and labs! PMHX: Hypertension Hyperlipidemia Hypothyroidism Anxiety - nicely [...] Outpatient Medications Marked as Taking for the 10/21/21 encounter (Office Visit) with Bina Monique MD [...] HISTORY Personal: to [place]. 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 Loves to cook and read and shop with friends and visit son. One son, Skyler, 36 yo in [place]. He is engaged! She did the [place] Plunge for [employer] at [place]. Aug 2019! 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 Body surface area is 1.93 meters squared. GENERAL: Brian Bliss appears well [...] MUSCULOSKELETAL: No spinal or chest wall tenderness. 10/21/21 Wrists LABORATORY STUDIES Recent Results (from the past 72 hour(s)) Lactate Dehydrogenase Result Value Ref Range LDH 185 110 - 220 unit/L Comprehensive metabolic panel (non-fasting) Result Value Ref Range Glucose Lvl 99 65 - 199 mg/dL BUN 23 (H) 8 - 18 mg/dL Creatinine 0.81 0.70 - 1.20 mg/dL Sodium 138 135 - 145 mmol/L Potassium 4.0 3.5 - 5.0 mmol/L Chloride 103 98 - 107 mmol/L CO2 24 22 - 31 mmol/L Anion Gap 11 5 - 15 mmol/L Calcium 9.2 8.5 - 10.5 mg/dL Total Protein 5.9 (L) 6.1 - 8.0 g/dL Albumin 4.3 3.2 - 5.2 g/dL AST 17 0 - 30 unit/L ALT 16 0 - 30 unit/L Alk Phos 98 35 - 105 unit/L Total Bilirubin 0.4 0.2 - 1.3 mg/dL Estimated GFR 72 >=60 mL/min/1.73 m?? Hemogram Result Value Ref Range WBC 3.3 (L) 4.0 - 9.5 x10(3)/mcL RBC 2.59 (L) 4.00 - 5.21 x10(6)/mcL Hemoglobin 8.7 (L) 11.7 - 15.5 g/dL Hematocrit 24.9 (L) 35.7 - 45.8 % MCV 96.1 (H) 82.6 - 94.4 fL MCH 33.6 (H) 27.1 - 32.0 pg MCHC 34.9 31.7 - 35.0 g/dL Platelets 148 145 - 357 x10(3)/mcL RDWSD 46.7 (H) 37.0 - 46.0 fL RDWCV 13.4 11.5 - 14.1 % MPV 9.6 7.6 - 12.9 fL nRBC % Auto 0.0 % nRBC Abs Auto 0.000 0.000 - 0.000 x10(3)/mcL Differential, Automated Result Value Ref Range Neutrophils % 60.6 % Neutr Abs (ANC) 2.00 1.70 - 6.10 x10(3)/mcL Lymphocytes % 25.5 % Lymphocytes Abs 0.8 (L) 0.9 - 3.2 x10(3)/mcL Monocytes % 13.0 % Monocyte Abs 0.4 0.3 - 0.9 x10(3)/mcL Eosinophils % 0.0 % Eosinophils Abs 0.0 0.0 - 0.4 x10(3)/mcL Basophils % 0.6 % Basophils Abs 0.0 0.0 - 0.1 x10(3)/mcL Immature Gran % 0.30 % Lorraine Gran Abs 0.01 0.00 - 0.04 x10(3)/mcL POCT Glucose Result Value Ref Range POC Glucose 95 65 - 199 mg/dL PATHOLOGY: 09/06/19 LN Interpretation at [facility] Outside slide(s) labeled [id number], collection date 09/06/2019. Lymph node, supra clavicular [...] CD19+/Cd20+/CD10 positive kappa restricted B cell population. [facility] Path 09/06/19 Path report in care everywhere. Reports follicular lymphoma grade 1-2. Immunoperoxidase stains were performed on this case to further characterize the lesion. ANTIBODY(CLONE)(BLOCK):RESULT CD3 (SP7, Thermo Scientific) (A3): Highlights background T-cells PAX-5 (1EW, Leica) (A3): Highlights neoplastic cells BCL-2 Oncoprotein (124, Frederickson) (A3): Positive in neoplastic cells Ki67 (MIB-1) [...] uptake (SUV max greater than 12) with customer contact representative nodes detailed above, are highly suspicious [...] tolerated her therapy very well. Here for final PET-6. We reviewed her scan and that it is negative! Anemia - she has become more anemic in the last 3-4 months. This is more significant than one would expect with bendamustine. Full anemia work-up was negative. Improving. ?? Lightheadedness -orthostatic vital signs (BP and pulse) were normal in clinic today. REsolved with more hydration. Never used the anti-vert. ?? COVID - vaccinated and boosted before chemo. Needs second covid booster - she will schedule. Starla consent today Work - she plans to rtc work in November 24. Not sure he is ready to retire yet. Skyler,son, is hoping to have children. 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 Plan: ?? Evusheld reviewed and orders written. ?? COVID vaccine #4 AFTER Evusheld ?? Check iron studies w/ next appt. ?? Labs and appt in 2 mos to re-assess her anemia - cbc,cmp, ldh and iron studies ?? Will give her a 3 or more month break from chemo to allow count recovery and then plan to start MR ?? Return to work per her request in November - letter to be provided. I discussed all of the above with the patient and all of her questions were answered. Support and counseling given as appropriate. This note was written or modified using SpectraRep voice recognition software. The final note was screened for mistakes. Please excuse any remaining errors. I discussed the risks and benefits of Evusheld (tixagevimab/cilgavimab) via telehealth (audio and video) with this patient, highlighting the following: ??? Evusheld was approved under Emergency Use Authorization in June 2021 for pre-exposure prophylaxis for COVID-19 in moderately to severely immunocompromised patients unlikely to have mounted a response to the COVID-19 vaccination, or are unable to receive the COVID-19 vaccination. ??? Evusheld consists of two monoclonal antibodies administered as two separate intramuscular injections. ??? Possible benefits of Evusheld include protection from COVID-19 for weeks to months. ??? Possible risks of Evusheld include rare but severe hypersensitivity for which the patient will be monitored for 1 hour after administration of the drug; localized pain at the injection site; headache, fatigue, and cough. Additionally, Evusheld has been associated with an increased number of cardiov ascular complications in a small proportion of patients. I counseled the patient to seek medical attention immediately if they should develop chest pain or discomfort, shortness of breath, leg swelling, or any other signs or symptoms suggestive of a cardiac event. ??? This information reflects the content of the following fact sheet (https://www.fda.gov/media/235633/download) will be provided to the patient in the clinic. ??? The patient understood the risks and benefits of Evusheld described above and agrees to proceed with the administration of this drug. ??? The patient understands that the treatment is voluntary and the alternative to receiving Evusheld is not to receive Evusheld. ??? The patient understands that they will sign a formal consent in the clinic. total time: time in counselling: Copy Sonali Joe APRN documented in this encounter Plan of Treatment Upcoming Encounters Date Type Specialty Care Team Description 06/16/2022 Office Visit Hematology and Oncology Jackie Dillon APRN [facility] [place] [place] [address] (Wo rk) 06/16/2022 Infusion Hematology and Oncology documented as of this encounter Visit Diagnoses Diagnosis 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 documented in this encounter Care Teams Msw Relationship Specialty Start Date End Date Sonali Joe APRN PCP - General Family Medicine 10/19/21 14 [place] [address] documented as of this encounter
--- OUTSIDE RECORDS SUMMARY | 2022-05-21 01:01 | XMS_ITS | Encounter Summary ---
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 [address] Referral ID Status Reason Start Date Expiration Date Visits Requ ested Visits Authorized [id number] Closed 04/22/2021 12/18/2021 18 18 Encounter Details Date Type Department Care Team Description 08/20/2021 Infusion Hematology Oncology at [facility] [place] 2 follicular lymphoma [facility] of lymph nodes of multiple [address] [place] [phone] Social History Tobacco Use Types [...] Sign Reading Time Taken Comments Blood Pressure 153/63 08/20/2021 2:10 PM EST Pulse 81 08/20/2021 2:10 PM EST Temperature 36.6 ??C (97.8 ??F) 08/20/2021 2:10 PM EST Respiratory Rate 16 08/20/2021 2:10 PM EST Oxygen Saturation 100% 08/20/2021 2:10 PM EST Inhaled Oxygen Concentration - - Weight 85.7 kg (189 lb) 08/20/2021 2:10 PM EST Height 160 cm (5' 2.99) 08/20/2021 2:10 PM EST Body Mass Index 33.49 08/20/2021 2:10 PM EST documented in this encounter Progress Erica Bradley RN - 08/20/2021 2:00 PM EST INFUSION THERAPY ADMINISTRATION NOTES ?? DIAGNOSIS: Follicular Lymphoma CYCLE #: 5 Day 2 REASON FOR VISIT: Bendamustine, OnPro application SUBJECTIVE ?? Ms.. Bliss is here for her C5D2 Bendamustine chemotherapy and OnPro application. She is overall feeling well today, doesn't sleep well for the first few nights after chemo. She has no questions/concerns and is ready for treatment today. ?? OBJECTIVE ?? LAB DATA: No holds for day 2. ?? Pre administration: Chemotherapy orders independently verified for drug name, route, and dosage per patient's height, weight and BSA by Duglas Tolbert RN and pharmacist on-site. ?? REACTIONS (DESCRIPTION, TIME, INTERVENTION AND EFFECTIVENESS) none ASSESSMENT ?? Ms. Bliss was awake, alert and tolerated treatment well. OnPro applied to right arm at 1449. Due to start dose delivery of medication at 1749. Patient instructed to remove at 1850 when meter reads empty and light is solid green. Verbal and written instruction given to patient. ?? PLAN ?? Return to clinic on 09/16 for consideration of her final cycle of BR. Patient was reminded to call in the interim with any questions/concerns. documented in this encounter Plan of Treatment Upcoming Encounters Date Type Specialty Care Team Description 06/16/2022 Office Visit Hematology and Oncology Jackie Dillon APRN [facility] [place] [address] (Wo rk) 06/16/2022 Infusion Hematology and Oncology documented as of this encounter Visit Diagnoses Diagnosis 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 documented in this encounter Administered Medications Inactive Administered Medications - up to 3 most recent administrations Medication Order MAR Action Action Date Dose Rate Site bendamustine (Bendeka) 173 mg New Bag 08/20/2021 2:43 PM 173 mg 341.5 mL/hr in sodium chloride 0.9% 56.92 EST mL infusion 173 mg (rounded from 172.8 mg = 90 mg/m2/dose ? 1.92 m2 Treatment Plan BSA from Recorded weight), Intravenous, ONCE, 1 dose, On Yocasta 08/20/21 at 1500, Administer over 10 Minutes, The resulting final concentration of bendamustine in the infusion bag should be between 1.85 - 5.6 mg/mL. Warning Vesicant/Irritant Medication , This agent is restricted to outpatient use. Is this drug being given as an outpatient? Yes dexamethasone (Decadron) tablet 10 mg Given 08/20/2021 2:37 PM EST 10 mg 10 mg, Oral, ONCE, 1 dose, On Yocasta 08/20/21 at 1400, Administer prior to chemotherapy, Routine heparin (pf) (porcine) (100 units/mL) Given 08/20/2021 2:[address] 500 Units flush 5 mL syringe 500 Units 500 Units, Intravenous, ONCE PRN, Starting on Tue08/19/21 at 1636, Until Tue08/20/21 at 1635, Line Care, Refer to Intravenous (IV) Procedure: Accessing Implanted Vascular Access Devices (654) procedure and/or Intravenous (IV) Job Aid: Adult Flushing & Catheter Care (2158) job aid for additional information regarding guidelines and administration., Routine pegfilgrastim (Neulasta Onpro) (6 Given 08/20/2021 2:49 PM EST 6 mg Right Arm mg/0.6 mL) injection kit 6 mg 6 mg, Subcutaneous, ONCE, 1 dose, On Yocasta 08/20/21 at 1500, Allow the prefilled syringe co-packaged with the on-body injector to reach room temperature at least 30 minutes prior to administration., Routine, This agent is restricted to outpatient use. Is this drug being given as an outpatient? Yes sodium chloride 0.9 % (flush) (BD PosiFlush Given 08/20/2021 2:57 PM EST 20 mLs Normal Saline 0.9) flush 5-20 mL 5-20 mL, Intravenous, EVERY 1 MIN PRN, Starting on Tue08/19/21 at 1636, Until Tue08/20/21 at 1635, Line Care, Flush pertains to all indwelling lines. Flush per protocol found in the job aid using the link provided on this medication record. Refer to Intravenous (IV) Job Aid: Adult Flushing & Catheter Care (7367) job aid for additional information regarding guidelines and administration., Routine sodium chloride 0.9% infusion New Bag 08/20/2021 2:39 PM EST 150 mL/hr 150 mL/hr 150 mL/hr, Intravenous, CONTINUOUS, Starting on Tue08/20/21 at 1400, Until Tue08/20/21 at 1710 documented in this encounter Care Teams Manager University Relationship Specialty Start Date End Date None PCP - General 07/07/21 10/18/21 None documented as of this encounter
--- OUTSIDE RECORDS SUMMARY | 2022-05-21 01:01 | XMS_ITS | Encounter Summary ---
:1950 Author Organization [facility] [place] [address] Care Team Providers Name Role Phone Sonali Joe APRN Primary Care Provider Reason for Visit Reason Comments IV Access Scheduled port flush Encounter Details Date Type Department Care Team Description 03/26/2022 Infusion Hematology Oncology at [facility] 2 follicular lymphoma [facility] of lymph nodes of multiple [address] [place] [phone] [phone] Social History Tobacco Use Types Packs/Day [...] Sign Reading Time Taken Comments Blood Pressure 179/76 03/26/2022 4:12 PM EDT Pulse 70 03/26/2022 4:12 PM EDT Temperature 36.7 ??C (98 ??F) 03/26/2022 4:12 PM EDT Respiratory Rate 20 03/26/2022 4:12 PM EDT Oxygen Saturation 100% 03/26/2022 4:12 PM EDT Inhaled Oxygen Concentration - - Weight - - Height - - Body Mass Index - - documented in this encounter Progress Notes Niru Rasheed RN - 03/26/2022 4:00 PM EDT INFUSION THERAPY ADMINISTRATION NOTES TIME TREATMENT STARTED: 1600 TIME TREATMENT ENDED: 1605 DIAGNOSIS: No diagnosis found. REASON FOR VISIT: MEDIPORT FLUSH ONLY IV ACCESS: Mediport GAUGE: 19G BLOOD RETURN: yes ANY S/S OF INFECTION/EXTRAVASATIONS: no signs of IV complications observed IV FLUSHED WITH: 20cc NS and 500 units Heparin IV DISCONTINUED: yes ASSESSMENT: Patient tolerated treatment well. PLAN: Return to clinic per routine. documented in this encounter Plan of Treatment Upcoming Encounters Date Type Specialty Care Team Description 06/16/2022 Office Visit Hematology and Oncology Jackie Dillon APRN [facility] HEMATOLOGY/ONCOL [place] DEPT. [place], [place] [address] (Wo rk) 06/16/2022 Infusion Hematology and Oncology documented as of this encounter Visit Diagnoses Diagnosis 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 documented in this encounter Care Teams Drilling Supervisor Relationship Specialty Start Date End Date Sonali Joe APRN PCP - General Family Medicine 10/19/21 14 [place] [address] documented as of this encounter
--- OUTSIDE RECORDS SUMMARY | 2022-05-21 01:01 | XMS_ITS | Encounter Summary ---
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 [address] [place] [address] Referral ID Status Reason Start Date Expiration Date Visits V isits Requested Authorized [id number] Closed Specialty 10/05/2021 12/03/2021 1 1 Service Requested Encounter Details Date Type Department Care Team Description 10/19/2021 Hospital Encounter Nuclear Medicine at [facility], [place] 2 follicular Anastasia Smith MD lymphoma of lymph [facility] nod es of multiple Drive [address] [place], [place] HEMATOLOGY/ONCOLOG [address] Y DEPT. [phone] [place], [place] [address] Social History Tobacco Use Types [...] Office Visit Hematology and Oncology Jackie Dillon, SENIOR ACCOUNTING MANAGER [facility] HEMATOLOGY/ONCOL [facility] DEPT. [place], [place] [address] (Wo rk) 06/16/2022 Infusion Hematology and Oncology documented as of this encounter Procedures Procedure Name Priority Date/Time Associated Diagnosis Comme nts NM PET CT SKULL Routine 10/19/2021 2:51 PM Grade 2 follicular Results for this BASE TO MID-THIGH EDT lymphoma of lymph proce dure are in ([facility]) nodes of multiple the result s regions section. documented in this encounter Results NM [...] who have questions please contact the health director of career resources that requested your imaging first. ? Electronically signed by: Allan Coates MD, [facility] ([phone]), at 10/20/2021 10:15 AM Narrative 10/20/2021 10:15 AM EDT EXAMINATION: NM PET CT STANDARD SKULL BASE TO MID-THIGH CLINICAL HISTORY: Non-Hodgkin lymphoma, assess treatment response PET after 6 cycles of bendamustine/Ritux an for Follicular lymphoma TECHNIQUE: Following IV injection of 18- icjsnz-5-ucsxtaabhohh (FDG) a standard uptake of approximately 60 [...] lymphoma TECHNIQUE: Following IV injection of 18- nuenwe-7-mkiccjazpzxg (FDG) a standard uptake of approximately 60 [...] ho have questions please contact the health director of career resources that requested your imaging first. Electronically signed by: Allan Coates MD, [facility] ([phone]), at 10/20/2021 10:15 AM Bina Monique MD IMG PET ORDERABLES documented in this encounter Visit Diagnoses Diagnosis 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 documented in this encounter Administered Medications Inactive Administered Medications - up to 3 most recent administrations Medication Order MAR Action Action Date Dose Rate Site fludeoxyglucose (F-18) FDG Given 10/19/2021 1:42 PM 16.3 mCi Implanted Port injection 0-20 mCi EDT 0-20 mCi, Intravenous, ONCE PRN, 1 dose, Starting on 10/19/21 at 1349, Until Tue10/19/21 at 1342, Per Protocol, Radiology Contrast, Routine documented in this encounter Care Teams Social Studies Teacher Relationship Specialty Start Date End Date Sonali Joe APRN PCP - General Family Medicine 10/19/21 14 [place] [address] documented as of this encounter
--- OUTSIDE RECORDS SUMMARY | 2022-05-21 01:02 | XMS_ITS | Encounter Summary ---
:1950 Author Organization [facility] [place] [address] Care Team Providers Name Role Phone Unavailable Primary Care Provider Unavailable Reason for Visit Reason Onset Date Comments Other 06/26/2021 pleurx check in Encounter Details Date Type Department Care Team Description 06/26/2021 Telephone Thoracic Surgery at [facility] (pleurx check in [facility] RN ) [place] [phone] Social History Tobacco Use Types Packs/Day [...] this encounter Miscellaneous Notes Telephone Encounter - Bernie Almodovar RN - 06/26/2021 10:55 AM EST TC to Mrs. Bliss Hx: Follicular lymphoma now s/p IR PleurX catheter drainage placement on 03/20/2021. Unable to reach Mrs. Bliss, left a message requesting a call back on Tuesday for pleurX update. documented in this encounter Plan of Treatment Upcoming Encounters Date Type Specialty Care Team Description 06/16/2022 Office Visit Hematology and Oncology Jackie Dillon, SPORTS COORDINATOR [facility] ER HEMATOLOGY/ONCOL SHADIA DEPT. [place], [place] [address] (Wo rk) 06/16/2022 Infusion Hematology and Oncology documented as of this encounter Visit Diagnoses Not on filedocumented in this encounter
--- OUTSIDE RECORDS SUMMARY | 2022-05-21 01:02 | XMS_ITS | Encounter Summary ---
:1950 Author Organization [facility] [place] [address] Care Team Providers Name Role Phone Unavailable Primary Care Provider Unavailable Encounter Details Date Type Department Care Team Description 06/24/2021 Office Visit Hematology/Oncology Jose Monique MD [facility] DR HEMATOLOGY/[place] [address] 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; at [facility] Venus Mendieta APRN [facility] DR HEMATOLOGY/[place] [address] Ple[address] effusion [address] [place] [phone] Social History Tobacco Use Types Packs/Day [...] Sign Reading Time Taken Comments Blood Pressure 145/63 06/24/2021 10:00 AM EST Pulse 80 06/24/2021 10:00 AM EST Temperature 36.6 ??C (97.9 ??F) 06/24/2021 10:00 AM EST Respiratory Rate 16 06/24/2021 10:00 AM EST Oxygen Saturation 100% 06/24/2021 10:00 AM EST Inhaled Oxygen Concentration - - Weight 85.7 kg (189 lb) 06/24/2021 10:00 AM EST Height 160 cm (5' 2.99) 06/24/2021 10:00 AM EST Body Mass Index 33.49 06/24/2021 10:00 AM EST documented in this encounter Progress Notes Bina Monique MD - 06/24/2021 10:00 AM EST Images from the original note were not included. Subjective: Patient ID: Brian Bliss is a 71 y.o. female here for f/u of NHL Patient Active Problem List Diagnosis ??? Pleural effusion ??? 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 Biopsy at [facility]. 09/06/19 LN Interpretation at [facility] Outside slide(s) labeled [id number], collection date 09/06/2019. Lymph node, supra clavicular [...] and BR followed by MR. 03/04/21 BMBX [id number] ? Location: [facility] ??SPECIMEN RESULTS Bone marrow aspirate, biopsy , peripheral smear : 1. ??Follicular lymphoma, by history. 2. ??Normocellular marrow (40%) with maturing trilineage hematopoiesis and involved by ??paratrabecular lymphoid aggregates c/w ??Follicular lymphoma, involving 40% of the ??cellularity. SYNOPSIS OF ANCILLARY STUDY RESULT(S) Cytogenetic analysis: Karyotyping, [facility]: ??46,XX[20] 03/17/21 PET EXAMINATION: NM PET CT STANDARD SKULL BASE TO MID-THIGH COMPARISON: CT chest 02/12/2021, CT chest abdomen and pelvis 10/17/2020, and PET/CT 10/04/2019 HEAD/NECK: FDG avid adenopathy in the bilateral upper and lower cervical and supraclavicular regions and within the bilateral parotids, increased in size and number compared to prior PET/CT of 09/2019. Supervisor [employer] lymph node within the highest FDG uptake in the left level 2 region measures 10 mm with SUV max of 18.7 (axial image 26). ?? CHEST: FDG avid adenopathy in the bilateral axillary and bilateral mediastinal and hilar regions, similar in size compared to CT chest of 10/17/2020. [employer] lymph node with the highest FDG uptake [...] size compared to prior CT of 10/17/2020. Super[employer] adenopathy in the highest FDG uptake in [...] uptake (SUV max greater than 12) with paper sales representative nodes detailed above, are highly suspicious for lymphoma transformation and would be amenable to CT-guided biopsy if clinically indicated. 4. Large right pleural effusion, unchanged compared to prior CT of 02/16/2021. ECHO [facility] EF LDH normal 171 03/19/2021 BMBx Bone [...] Hypothyroidism ??? Hypercholesterolemia HPI Brian is doing well. She did get a sinus infection - was treated with Augmentin - she could only tolerate 5 days worth - significant nausea. Her symptoms have since all resolved and she is feeling much better. No fevers or chills. Her energy is great, better than prior to initiaing treatments she hasbeen busy getting ready for [place] - she is looking forward to her son and his coming home for [place]. Pleurex catheter with signs of infection when seen by Venus last week. Treatment was held and a course of Augmentin was given to the patient per Dr. Silver of thoracic surgery. . No fevers. She otherwise is feeling great. Brian has completed 7 of her 10 days of Augmentin. She thinks the Pleurx output has decreased a bit, but not dramatically. She is getting about 100 cc every other day. She does note that the exit siteis less tender than it was a week ago. On examination it appears slightly indurated, but less red, and now only mildly pink. She had no fevers. Breathing stable Brian returns today after being on antibiotic for consideration of cycle #3 of bendamustine and rituximab. She has gained weight as she is eating more to calm her stomach while on Augmentin. Review of Systems Constitutional:She has gained weight as she is eating more to calm her stomach while on Augmentin. HENT: Negative. Eyes: Negative. Respiratory: Negative. Negative for cough and shortness of breath. Cardiovascular: Negative. Negative for chest pain, palpitations and leg swelling. Gastrointestinal: Negative. Negative for constipation, diarrhea, nausea and vomiting. Genitourinary: Negative. Musculoskeletal: Negative. Skin: pleurax site improved from last week. mild induration, consistent with long-term Pleurx catheter, and pink, no longer red. Neurological: Negative. Negative for weakness and numbness. Hematological: Negative. Psychiatric/Behavioral: Negative. Objective: Physical Exam Pulse 80 Temp 36.6 ??C (97.9 ??F) (Temporal) Resp 16 Ht 160 cm (5' 2.99) Wt 85.7 kg (189 lb) SpO2 100% BMI 33.49 kg/m?? Constitutional: General: She is not in acute [...] and oriented to person, place, and time. 06/24/21 Improved Assessment and Plan: Brian Bliss?is a very [...] now completing a course of Augmentin and presents for consideration of cycle #3 bendamustine/Rituxan after a 1 week delay. The site appears improved. Please see photos above. It does not seem that the Augmentin has significantly changed her output. She is still putting 100-150 cc out every other day. Because the site still appears mildly tender and erythematous, I will continue the Augmentin for total of a 2-week course (14 days) which she will finish on 07/01/2021 Anemia -Venus Mendieta noticed at the last appointment that she has become more anemic in the last 1 to2 months. This is more significant than one would expect with bendamustine. Full anemia work-up was done today. We await those results. Pleurx catheter -responding to Augmentin. We will continue and complete a full 14-day course. Additional prescription prescribed today. Patient is now draining 100-150 cc every other day. Brian Bliss will return to clinic in 4 weeks for consideration of cycle 4 she will call before thenif any concerns or changes in status. documented in this encounter Plan of Treatment Upcoming Encounters Date Type Specialty Care Team Description 06/16/2022 Office Visit Hematology and Oncology Jackie Dillon, CHAIN OFFBEARER [facility] HEMATOLOGY/[facility] DEPT. [place], [place] [address] (Wo rk) 06/16/2022 Infusion Hematology and Oncology documented as of this encounter Procedures Procedure Name Priority Date/Time Associated Diagnosis Comme nts CBC (WITH DIFF) Routine 06/24/2021 Results for this procedure are i n the results section . COMPREHENSIVE METABOLIC Routine 06/24/2021 Resu lts for this PANEL (NON-FASTING) procedur e are in the results section . documented in this encounter Results Comprehensive metabolic panel (non-fasting) (06/24/2021) athologist Signature BUN 23 Creatinine 1 LDH 176 Vitamin B-12 684 Folate Lvl 8 Specimen (Source) Anatomical Location Collection Method / Collectio n Time Received Time / Laterality Volume Blood 06/24/2021 Historical Provider CHEMISTRY ORDERABLES CBC (with Diff) (06/24/2021) P athologist Signature WBC 5.2 Hemoglobin 8.7 Hematocrit 26.0 Platelets 185 Neutr Abs (ANC) 2.[address] % 3.8 Specimen (Source) Anatomical Location Collection Method / Collectio n Time Received Time / Laterality Volume Blood 06/24/2021 Historical Provider HEMATOLOGY ORDERABLES documented in this encounter Visit Diagnoses Diagnosis 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 Pleural effusion Unspecified pleural effusion documented in this encounter
--- OUTSIDE RECORDS SUMMARY | 2022-05-21 01:02 | XMS_ITS | Encounter Summary ---
:1950 Author Organization [facility] [place] [address] Care Team Providers Name Role Phone Unavailable Primary Care Provider Unavailable Encounter Details Date Type Department Care Team Description 04/16/2021 Notes [facility] [place] [phone] Social History Tobacco Use Types Packs/Day [...] documented as of this encounter Progress Notes Elizabeth Frank RN - 04/16/2021 10:41 AM EDT Patient called to ask questions about therapy planned for next week. Discussed that her it would be beneficial if she brought someone with her to her first infusion. Would like to see how she toleratesit. Verbalized Understanding and stated that her will accompany her to the first infusion. SHe does not want him to stay with her during infusion as he is very nervious. Stated that was fine. Subsequent infusion will be shorter, and if she tolerates the first she may be able to drive afterward. Also states her port was placed on 03/12 and hasn't been flushed yet. Discussed that we can wait to access it until next week and flush it then. Verbalized Understanding. documented in this encounter Plan of Treatment Upcoming Encounters Date Type Specialty Care Team Description 06/16/2022 Office Visit Hematology and Oncology Jackie Dillon, RAILROAD WHEELS AND AXLE INSPECTOR [facility] ER HEMATOLOGY/ONCOL SHADIA DEPT. [place], [place] [address] (Wo rk) 06/16/2022 Infusion Hematology and Oncology documented as of this encounter Visit Diagnoses Not on filedocumented in this encounter
--- OUTSIDE RECORDS SUMMARY | 2022-05-21 01:02 | XMS_ITS | Encounter Summary ---
:1950 Author Organization [facility] [place] [address] Care Team Providers Name Role Phone Unavailable Primary Care Provider Unavailable Encounter Details Date Type Department Care Team Description 05/01/2021 Telephone Thoracic Surgery at [facility] Marry Acosta, [place] [phone] Social History Tobacco Use Types Packs/Day [...] this encounter Miscellaneous Notes Telephone Encounter - Marry Acosta RN - 05/01/2021 2:39 PM EDT Phone call from Brian that her drainage has been only minimal in the evenings the last 2 days. She will go to once daily drainage starting tomorrow morning. She is in active treatment now Q 4 weeks. Iwill check back with her on Tuesday. She has one last shipment of PleurX bottles coming today from the [facility] and we are trying to get additional from [facility]. documented in this encounter Plan of Treatment Upcoming Encounters Date Type Specialty Care Team Description 06/16/2022 Office Visit Hematology and Oncology Jackie Dillon, RETURN CHECKER [facility] ER HEMATOLOGY/ON[facility] DEPT. [place], [place] [address] (Wo rk) 06/16/2022 Infusion Hematology and Oncology documented as of this encounter Visit Diagnoses Not on filedocumented in this encounter
--- OUTSIDE RECORDS SUMMARY | 2022-05-21 01:02 | XMS_ITS | Encounter Summary ---
:1950 Author Organization [facility] [place] [address] Care Team Providers Name Role Phone Unavailable Primary Care Provider Unavailable Encounter Details Date Type Department Care Team Description 03/25/2021 Notes Only Radiology at [facility] Jerome Madison MD [facility] [place] [phone] RADIOLOGY DEPT [phone] [place], [place] [address] (Wo rk) Social History Tobacco [...] on file documented as of this encounter H&P Notes Jerome Madison MD - 03/25/2021 4:04 PM EDT Images from the original note were not included. INTERVENTIONAL RADIOLOGY FOCUSED H&P and PRE-PROCEDURE NOTE: PCP: None Referring Provider: Bina Olivier Procedure: Planned procedure: prescarcral mass biopsy Procedure Indication: Patient with known follicular lymphoma. ??Concern for transformation. ??Pleasebiopsy PET avid presacral lymph node with SUV of 14. Procedure request received through Interventional Radiology eDH order queue. Presenting Diagnosis/ Complaint: Brian Bliss is a 70 y.o. female with signs of progression of lymphoma on recent PET with concerns for transformation. Request for biopsy for histopathologic diagnosis. Imaging: Physical Exam: Pending (to be performed in angio the day of procedure) ASA: Pending (to be assessed in angio the day of procedure) Mallampati Class: Pending (to be assessed in angio the day of procedure) Assessment: 70 y.o. female with progression of lymphoma concerning for transformation with request for biopsy of PET avid left presacral lesion. I have reviewed the images and the requested target lesion for biopsy is in a challenging location but may be accessible via a left anterior oblique approach or posterior approach. I have discussed this with the ordering provider, Dr. Griffin, who will get back to me about alternate sites for biopsy if the presacral lesion is not amenable at the time of the procedure. After discuss with Dr. Monique and Dr. Tse, an alternative site for biopsy would be FDG avid adenopathy in the bilateral upper and lower cervical and supraclavicular regions and within the bilateral parotids, increased in size and number compared to prior PET/CT of 09/2019. [employer] lymph node within the highest FDG uptake in the left level 2 region measures 10 mm with SUV max of 18.7 (axial image 26). I have discussed the case with Neuroradiology and the neck LN seems to be the safer and easier options. Will plan to proceed with biopsy of the left neck lymph node. The order has been changed to appropriate IR US order. Plan: Planned CT guided presacral LN biopsy deferred given challenging location and alternative target in neck. See Neuroradiology work up for additional details. 03/25/2021 documented in this encounter Plan of Treatment Upcoming Encounters Date Type Specialty Care Team Description 06/16/2022 Office Visit Hematology and Oncology Jackie Dillon, DIRECTOR OF OPERATIONS FOR THERAPY [facility] [place] [place] [address] (Wo rk) 06/16/2022 Infusion Hematology and Oncology documented as of this encounter Visit Diagnoses Not on filedocumented in this encounter
--- OUTSIDE RECORDS SUMMARY | 2022-05-21 01:02 | XMS_ITS | Encounter Summary ---
:1950 Author Organization [facility] [place] [address] Care Team Providers Name Role Phone None Primary Care Provider Unavailable Reason for Visit Reason Onset Date Comments Other 07/09/2021 Encounter Details Date Type Department Care Team Description 07/09/2021 Telephone Thoracic Surgery at [facility] [place] [phone] Social History Tobacco Use Types Packs/Day [...] Telephone Encounter - Bernie Almodovar RN - 07/09/2021 9:18 AM EST TC from Ms. Bliss Hx: Follicular lymphoma now s/p IR PleurX catheter drainage placement on 03/20/2021. Now s/p pleurX catheter removal on 07/07. Unable to reach Ms. Bliss, left a message requesting a call back as call was lost. Awaiting call back documented in this encounter Plan of Treatment Upcoming Encounters Date Type Specialty Care Team Description 06/16/2022 Office Visit Hematology and Oncology Jackie Dillon, CRAPS MANAGER [facility] HEMATOLOGY/ONCOL SH[facility] DEPT. [place], [place] [address] (Wo rk) 06/16/2022 Infusion Hematology and Oncology documented as of this encounter Visit Diagnoses Not on filedocumented in this encounter Care Teams Crm Marketing Analyst Relationship Specialty Start Date End Date None PCP - General 07/07/21 10/18/21 None documented as of this encounter
--- OUTSIDE RECORDS SUMMARY | 2022-05-21 01:02 | XMS_ITS | Encounter Summary ---
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 [place], [place] [address] (Wo rk) 06/16/2022 Infusion Hematology and Oncology documented as of this encounter Procedures Procedure Name Priority Date/Time Associated Diagnosis Comme nts CT CHEST W CONTRAST STAT 07/07/2021 1:24 PM Grade 2 follicu lar Results for this EST lymphoma of lymph procedure are in nodes of multiple the result s regions section. Pleural effusion, malignant documented in this encounter Results CT Chest w Contrast (07/07/2021 1:24 PM EST) Anatomical Region Laterality Modality Chest Computed Tomography Specimen (Source) Anatomical Location Collection Method / Collectio n Time Received Time / Laterality Volume Impressions 07/07/2021 2:40 PM EST 1. ??No pulmonary airspace consolidation, nodule, or new metastatic disease. 2. ??Resolved right pleural effusion. 3. ??Decreased size of mediastinal and a xillary lymph nodes. I have personally reviewed the image(s) and the resident's interpretation and agree with the findings, Ashley Smith MD at 07/07/2021 2:40 PM Thank you for letting us participate in the care of this patient. ??If you are a health care provider and have any questi ons regarding this report, please contact the number below. ??For patients who have questions please contact the health geriatric personal care aide that requested your imaging first. ? Narrative 07/07/2021 2:40 PM EST EXAMINATION: CT CHEST W CONTRAST CLINICAL HISTORY: Non-small cell lung ca ncer, metastatic, assess treatment response Patient with PleurX catheter in place, e jessenia for fluid collection/infection TECHNIQUE: 3.75 mm thick axial contiguou s sections were obtained through the chest via helical acquisition after the intravenous administration of 56 mL Omnipaque 350. Thin-section reconstructi ons as well as coronal and sagittal reformatted images were generated. Per the instrument technologist's note, the IV i nfiltrated on the last part of the injection and the injection was disconti nued. The patient was subsequently scanned. COMPARISON: CT chest 02/12/2021, chest rad iograph 03/21/2021 FINDINGS: Pulmonary parenchyma: No pulmonary conso lidation or nodule. Airways: Patent and normal in caliber. Pleura: Pleurx catheter enters through t he lower lateral right chest wall and terminates anteromedially adjacent to th e inferior right heart border. Resolved right pleural effusion. No left pleural effusion. Lymph nodes: Interval decrease in size o f multiple mediastinal lymph nodes, now all subcentimeter in short axis. Heart, pericardium, and great vessels: N o pericardial effusion. Scattered atherosclerotic calcific dictation throu ghout the nonaneurysmal thoracic aorta. Mild aortic valve calcification. Other mediastinal structures/lower neck: Right anterior chest wall Mediport catheter, partially visualized, tip with in the lower SVC. Upper abdomen: Small calcification/granu ibrahima adjacent to the spleen. Normal adrenal glands. Body wall soft tissues: No significant f indings. Skeletal structures: Multilevel mild deg enerative change with accentuation of the kyphotic curvature, as before. Uncha nged probable hemangiomas of T12 and L1. Severe degenerative change of the left g lenohumeral joint with exuberant osteophyte formation. No suspicious osse ous lesion. Procedure Note Ashley Smith MD - 07/07/2021Formatt ing of this note might be different from the original. EXAMINATION: CT CHEST W CONTRAST CLINICAL HISTORY: Non-small cell lung ca ncer, metastatic, assess treatment response Patient with PleurX catheter in place, e jessenia for fluid collection/infection TECHNIQUE: 3.75 mm thick axial contiguou s sections were obtained through the chest via helical acquisition after the intravenous administration of 56 mL Omnipaque 350. Thin-section reconstructi ons as well as coronal and sagittal reformatted images were generated. Per the instrument technologist's note, the IV i nfiltrated on the last part of the injection and the injection was disconti nued. The patient was subsequently scanned. COMPARISON: CT chest 02/12/2021, chest rad iograph 03/21/2021 FINDINGS: Pulmonary parenchyma: No pulmonary conso lidation or nodule. Airways: Patent and normal in caliber. Pleura: Pleurx catheter enters through t he lower lateral right chest wall and terminates anteromedially adjacent to th e inferior right heart border. Resolved right pleural effusion. No left pleural effusion. Lymph nodes: Interval decrease in size o f multiple mediastinal lymph nodes, now all subcentimeter in short axis. Heart, pericardium, and great vessels: N o pericardial effusion. Scattered atherosclerotic calcific dictation throu ghout the nonaneurysmal thoracic aorta. Mild aortic valve calcification. Other mediastinal structures/lower neck: Right anterior chest wall Mediport catheter, partially visualized, tip with in the lower SVC. Upper abdomen: Small calcification/granu ibrahima adjacent to the spleen. Normal adrenal glands. Body wall soft tissues: No significant f indings. Skeletal structures: Multilevel mild deg enerative change with accentuation of the kyphotic curvature, as before. Uncha nged probable hemangiomas of T12 and L1. Severe degenerative change of the left g lenohumeral joint with exuberant osteophyte formation. No suspicious osse ous lesion. IMPRESSION 1. No pulmonary airspace consolidation, nodule, or new metastatic disease. 2. Resolved right pleural effusion. 3. Decreased size of mediastinal and axi llary lymph nodes. I have personally reviewed the image(s) and the resident's interpretation and agree with the findings, Ashley Smith MD at 07/07/2021 2:40 PM Thank you for letting us participate in the care of this patient. If you are a health care provider and have any questi ons regarding this report, please contact the number below. For patients w ho have questions please contact the health geriatric personal care aide that requested your imaging first. 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 Pleural effusion, malignant Malignant pleural effusion documented in this encounter Administered Medications Inactive Administered Medications - up to 3 most recent administrations Medication Order MAR Action Action Date Dose Rate Site iohexoL (Omnipaque) (350 mg/mL) Given 07/07/2021 1:26 PM EST 56 mLs solution 0-200 mL 0-200 mL, Intravenous, ONCE PRN, 1 dose, Starting on Tue07/07/21 at 1326, Until Tue07/07/21 at 1326, Per Protocol, Warning Vesicant/Irritant Medication , Radiology Contrast, Routine documented in this encounter Care Teams Lost Charge Card Clerk Relationship Specialty Start Date End Date None PCP - General 07/07/21 10/18/21 None documented as of this encounter
--- OUTSIDE RECORDS SUMMARY | 2022-05-21 01:02 | XMS_ITS | Encounter Summary ---
:1950 Author Organization [facility] [place] [address] Care Team Providers Name Role Phone Unavailable Primary Care Provider Unavailable Encounter Details Date Type Department Care Team Description 05/07/2021 Telephone Thoracic Surgery at [facility] Bernie Almodovar, [place] [phone] Social History Tobacco Use Types Packs/Day [...] Telephone Encounter - Bernie Almodovar RN - 05/07/2021 10:59 AM EDT TC back to Mrs. Bliss Hx: Follicular lymphoma now s/p IR PleurX catheter drainage placement on 03/20/2021. Mrs. Bliss is calling with questions about PleurX catheter bottle ordering. She has now heard back from [facility] and [employer] regarding insurance approval and pleurX bottle ordering. Both companies are working with her insurance company [employer] with approval. Reviewed that Marry sent the order to [employer] - not sure who sent the order to [employer] - Mrs. Bliss is stating that her [facility] may have sent the other order to [employer]. She will call them today and this author will work on [employer] information. She was grateful for the call back and she knows to call with any questions or concerns. documented in this encounter Plan of Treatment Upcoming Encounters Date Type Specialty Care Team Description 06/16/2022 Office Visit Hematology and Oncology Jackie Dillon, [facility] HEMATOLOGY/[facility] DEPT. [place], [place] [address] (Wo rk) 06/16/2022 Infusion Hematology and Oncology documented as of this encounter Visit Diagnoses Not on filedocumented in this encounter
--- OUTSIDE RECORDS SUMMARY | 2022-05-21 01:02 | XMS_ITS | Encounter Summary ---
:1950 Author Organization [facility] [place] [address] Care Team Providers Name Role Phone None Primary Care Provider Unavailable Encounter Details Date Type Department Care Team Description 07/08/2021 Telephone Thoracic Surgery at [facility] Marry Acosta, [place] [address] Social History Tobacco Use Types Packs/Day [...] Telephone Encounter - Marry Acosta RN - 07/08/2021 10:02 AM EST Patient is S/P PleurX removal yesterday in clinic. Phone call today to check in on her. Left messagefor her to call with any issues. documented in this encounter Plan of Treatment Upcoming Encounters Date Type Specialty Care Team Description 06/16/2022 Office Visit Hematology and Oncology Jackie Dillon, BRAND REPRESENTATIVE [facility] HEMATOLOGY/[facility] DEPT. [place], [place] [address] (Wo rk) 06/16/2022 Infusion Hematology and Oncology documented as of this encounter Visit Diagnoses Not on filedocumented in this encounter Care Teams Negative Stripper Relationship Specialty Start Date End Date None PCP - General 07/07/21 10/18/21 None documented as of this encounter
--- OUTSIDE RECORDS SUMMARY | 2022-05-21 01:02 | XMS_ITS | Encounter Summary ---
:1950 Author Organization [facility] [place] [address] Care Team Providers Name Role Phone Unavailable Primary Care Provider Unavailable Encounter Details Date Type Department Care Team Description 06/17/2021 Office Visit Hematology/Oncology Venus Mendieta, Grade 2 follicular at [facility] COMPUTER ENGINEERING PROFESSOR lymphoma of lymph [address] [facility] nodes of multiple [place], [place] [address] [address] HEMATOLOGY/ONCOLOG [phone] Y DEPT. [place], [place] [address] Social History Tobacco Use Types [...] Sign Reading Time Taken Comments Blood Pressure 163/54 06/17/2021 10:10 AM EST Pulse 85 06/17/2021 10:10 AM EST Temperature 36.4 ??C (97.5 ??F) 06/17/2021 10:10 AM EST Respiratory Rate 20 06/17/2021 10:10 AM EST Oxygen Saturation 100% 06/17/2021 10:10 AM EST Inhaled Oxygen Concentration - - Weight 84.6 kg (186 lb 6.4 oz) 06/17/2021 10:10 AM EST Height 160 cm (5' 2.99) 06/17/2021 10:10 AM EST Body Mass Index 33.03 06/17/2021 10:10 AM EST documented in this encounter Progress Notes Venus Mnedieta, COMPUTER ENGINEERING PROFESSOR - 06/17/2021 10:00 AM EST Subjective: Patient ID: Brian Bliss is a 71 y.o. female here for f/u of NHL Patient Active Problem List Diagnosis ??? Pleural effusion ??? 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 Biopsy at [facility]. 09/06/[address] [facility] Outside slide(s) labeled [id number], collection date 09/06/2019. Lymph node, supra clavicular [...] restaging and BR followed by 03/04/21 BMBX [id number] ? Location: [facility] ??SPECIMEN RESULTS Bone marrow aspirate, biopsy , peripheral smear : 1. ??Follicular lymphoma, by history. 2. ??Normocellular marrow (40%) with maturing trilineage hematopoiesis and involved by ??paratrabecular lymphoid aggregates c/w ??Follicular lymphoma, involving 40% of the ??cellularity. SYNOPSIS OF ANCILLARY STUDY RESULT(S) Cytogenetic analysis: Karyotyping, [facility]: ??46,XX[[id number]] 03/17/21 PET EXAMINATION: NM PET CT STANDARD SKULL BASE TO MID-THIGH COMPARISON: CT chest 02/12/2021, CT chest abdomen and pelvis 10/17/2020, and PET/CT 10/04/2019 HEAD/NECK: FDG avid adenopathy in the bilateral upper and lower cervical and supraclavicular regions and within the bilateral parotids, increased in size and number compared to prior PET/CT of 09/2019. Nursing Resident lymph node within the highest FDG uptake in the left level 2 region measures 10 mm with SUV max of 18.7 (axial image 26). ?? CHEST: FDG avid adenopathy in the bilateral axillary and bilateral mediastinal and hilar regions, similar in size compared to CT chest of 10/17/2020. Nursing Resident lymph node with the highest FDG uptake [...] size compared to prior CT of 10/17/2020. Nursing Resident adenopathy in the highest FDG uptake in [...] uptake (SUV max greater than 12) with plastic products sales representative nodes detailed above, are highly [...] treatments she hasbeen busy getting ready for [place] - she is looking forward to her on and his coming homefor [place]. She is having some discomfort from her Pleurax site and she got some murky drainage -scant amount. It is also sore. She is draining daily - 1-200cc a day. Her drainage seems more viscous to her. No fevers. She otherwise is feeling great. Review of Systems Constitutional: Negative. HENT: Negative. Eyes: Negative. Respiratory: Negative. Negative for cough and shortness of breath. Cardiovascular: Negative. Negative for chest pain, palpitations and leg swelling. Gastrointestinal: Negative. Negative for constipation, diarrhea, nausea and vomiting. Genitourinary: Negative. Musculoskeletal: Negative. Skin: Positive for wound. pleurax site as above Neurological: Negative. Negative for weakness and numbness. Hematological: Negative. Psychiatric/Behavioral: Negative. Objective: Physical Exam Constitutional: General: She is not in acute distress. Appearance: She is well-developed. HENT: Mouth/Throat: Pharynx: [...] Skin: General: Skin is warm and dry. Comments: See photo - tender to palpation small amount of yellow/greenish discharge Neurological: Mental Status: She is alert and oriented to person, place, and time. BP 163/54 (Patient Position: Sitting) Pulse 85 Temp 36.4 ??C (97.5 ??F) (Temporal) Resp 20 Ht 160 cm (5' 2.99) Wt 84.6 kg (186 lb 6.4 oz) SpO2 100% BMI 33.03 kg/m?? Assessment and Plan: Brian Bliss?is a very [...] did have a sinus infection after cycle 2 This has resolved. Her hemoglobin is down a bit more today. MCV stable. Will check usual anemia labs with next visit looking for other etiology. If drops below 8.5 will consider intervention. ?? pleurax cath site red, painful with small amount of purulant discharge.She is willing to try again -will take with food. I was not able to culture her in clinic today. I did reach out to pulmonary whorecommended Augmentin for [address] Silver. She previously has had nausea with Augmentin. She will try again - if she does not toelrate she will follow - up with pulmonary. I will hold her chemo this week. Will reschedule her for next week - hopefully this is improved by then. Brian Bliss will return to clinic in 1 weeks for consideration of cycle 4 she will call before thenif any concerns or changes in status. documented in this encounter Plan of Treatment Upcoming Encounters Date Type Specialty Care Team Description 06/16/2022 Office Visit Hematology and Oncology Jackie Dillon APRN [facility] HEMATOLOGY/[facility] DEPT. [place], [place] [address] (Wo rk) 06/16/2022 Infusion Hematology and Oncology documented as of this encounter Procedures Procedure Name Priority Date/Time Associated Diagnosis Comme nts CBC (WITH DIFF) Routine 06/17/2021 Results for this procedure are in the resu lts section. documented in this encounter Results CBC (with Diff) (06/17/2021) P athologist Signature WBC 6.2 Hemoglobin 8.9 Hematocrit 26.4 Platelets 195 Neutr Abs (ANC) 2.47 Creatinine 0.8 LDH 201 Specimen (Source) Anatomical Location Collection Method / Collectio n Time Received Time / Laterality Volume Blood 06/17/2021 Historical Provider HEMATOLOGY ORDERABLES documented in this encounter Visit Diagnoses Diagnosis 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 documented in this encounter
--- OUTSIDE RECORDS SUMMARY | 2022-05-21 01:02 | XMS_ITS | Encounter Summary ---
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 [address] Referral ID Status Reason Start Date Expiration Date Visits Requ ested Visits Authorized [id number] Closed 04/22/2021 12/18/2021 18 18 Encounter Details Date Type Department Care Team Description 04/22/2021 Infusion Hematology Oncology at [facility] rico 2 follicular lymphoma [facility] of lymph nodes of [address] [phone] Social History Tobacco Use Types Packs/Day Years [...] documented as of this encounter Progress Notes Eva Brown RN - 04/22/2021 1:30 PM EDT INFUSION THERAPY ADMINISTRATION NOTES DIAGNOSIS: follicular lymphoma CYCLE #:1, Day 1 REASON FOR VISIT: Bendamustine SUBJECTIVE Brian Bliss offers no complaints. OBJECTIVE LAB DATA: WDL for today's infusion. Seen in clinic and cleared for tretment. IV ACCESS: Mediport accessed without issue- brisk blood return. Port flushed with 20ml of NS and 500units of heparin and left accessed for tomorrow. Pre administration: Chemotherapy orders independently verified for drug name, route, and dosage per patient's height, weight and BSA by EVA BROWN RN & onsite pharmacist. REACTIONS (DESCRIPTION, TIME, INTERVENTION AND EFFECTIVENESS) none ASSESSMENT Brian Bliss was awake, alert and tolerated treatment well. PLAN Return to clinic per routine. documented in this encounter Plan of Treatment Upcoming Encounters Date Type Specialty Care Team Description 06/16/2022 Office Visit Hematology and Oncology Jackie Dillon, MEDICAL STAFF SERVICES MANAGER [facility] HEMATOLOGY/[facility] DEPT. [place], [place] [address] (Wo rk) 06/16/2022 Infusion Hematology and Oncology documented as of this encounter Visit Diagnoses Diagnosis 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 documented in this encounter Administered Medications Inactive Administered Medications - up to 3 most recent administrations Medication Order MAR Action Action Date Dose Rate Site bendamustine (Bendeka) 173 mg New Bag 04/22/2021 2:23 PM 173 mg 341.5 mL/hr in sodium chloride 0.9% 56.92 EDT mL infusion 173 mg (rounded from 172.8 mg = 90 mg/m2/dose ? 1.92 m2 Treatment Plan BSA from Recorded weight), Intravenous, ONCE, 1 dose, On Tue04/22/21 at 1500, Administer over 10 Minutes, The resulting final concentration of bendamustine in the infusion bag should be between 1.85 - 5.6 mg/mL. Warning Vesicant/Irritant Medication , This agent is restricted to outpatient use. Is this drug being given as an outpatient? Yes dexamethasone (Decadron) tablet 10 mg Given 04/22/2021 2:11 PM EDT 10 mg 10 mg, Oral, ONCE, 1 dose, On Tue04/22/21 at 1400, Administer prior to chemotherapy, Routine palonosetron (Aloxi) (0.05 mg/mL) injection Given 04/10 2:12 PM EDT 0.25 mg 0.25 mg 0.25 mg, Intravenous, ONCE, 1 dose, On Tue04/22/21 at 1400, Administer over 30 seconds., Routine sodium chloride 0.9% infusion New Bag 04/22/2021 2:00 PM EDT 150 mL/hr 150 mL/hr 150 mL/hr, Intravenous, CONTINUOUS, Starting on Tue04/22/21 at 1400, Until Tue04/22/21 at 1654 documented in this encounter
--- OUTSIDE RECORDS SUMMARY | 2022-05-21 01:02 | XMS_ITS | Encounter Summary ---
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 [address] [place] [address] Referral ID Status Reason Start Date Expiration Date Visits V isits Requested Authorized [id number] Closed Specialty 03/18/2021 09/15/2022 1 1 Service Requested Encounter Details Date Type Department Care Team Description 04/09/2021 Hospital Encounter Radiology at [facility] Eneida, Grade 2 follicular [facility] Bina Smith MD lymphoma of lymph Drive [facility] nodes of multiple [place], [place] [address] [place] [phone] HEMATOLOGY/ONCOLOG [phone] Y DEPT. [place] [employer], [place] [address] Social History Tobacco Use Types [...] Sig Dispensed Refills Start Date End Date losartan-hydrochlorothiazid 0 04/01/20 21 e (HYZAAR) 100-25 mg Tablet tolterodine LA (Detrol LA) Take 2 mg by mouth 0 2 mg Capsule, Sust. Release daily. 24 hr UNABLE TO FIND Krill oil daily 0 atorvastatin (Lipitor) 10 10 mg daily. 0 09/07/19 20 mg Tablet levothyroxine (Synthroid) Take 75 mcg by 0 2019 75 mcg Tablet mouth daily. venlafaxine XR (Effexor-XR) Take 37.5 mg by 0 37.5 mg Capsule, Sust. mouth daily. Release 24 hr cholecalciferol, Vitamin Take 50 Units by 0 D3, 50 mcg (2,000 unit) mouth daily. Tablet dilTIAZem CD (Cardizem CD) Take 300 mg by 0 05/06/2021 300 mg Capsule, Sust. mouth daily. Release 24 hr ubiquinone (coenzyme Q10) Take 200 mg by 0 05/06/2021 100 mg Capsule mouth daily. documented as of this encounter Plan of Treatment Upcoming Encounters Date Type Specialty Care Team Description 06/16/2022 Office Visit Hematology and Oncology Jackie Dillon, GAS APPLIANCE SERVICER [facility] ER HEMATOLOGY/ONCOL [place] DEPT. [place] [phone] (Wo rk) 06/16/2022 Infusion Hematology and Oncology documented as of this encounter Procedures Procedure Name Priority Date/Time Associated Diagnosis Comme nts IR BIOPSY LYMPH Routine 04/09/2021 11:22 AM Grade 2 follicular Results for this NODE (HEAD/NECK) EDT lymphoma of lymph proced ure are in nodes of multiple the result s regions section. SURGICAL PATHOLOGY Routine 04/09/2021 10:11 AM Re sults for this REPORT EDT procedure are i n the results section. SPECIMEN TO Routine 04/09/2021 10:11 AM Results for this PATHOLOGY EDT procedure are i n the results section. documented in this encounter Results IR Biopsy Lymph Node (Head/Neck) (04/09/2021 11:22 AM EDT) Anatomical Region Laterality Modality X-Ray Angiography Specimen (Source) Anatomical Location Collection Method / Collectio n Time Received Time / Laterality Volume Impressions 04/09/2021 2:42 PM EDT Ultrasound-guided core biopsy of the left neck lymph node immediately inferior to the left parotid gland, which was hyp ermetabolic on the recent PET/CT. I performed the procedure. Azucena Campos was present for the proc [facility]. Thank you for letting us participate in the care of this patient. ??If you are a health care provider and have any questi ons regarding this report, please contact the number below. ??For patients who have questions please contact the health health care coach that requested your imaging first. ? Electronically signed by: Olivier hidalgo MD, [facility] ([phone]), at 04/09/2021 2:42 PM Narrative 04/09/2021 2:42 PM EDT EXAMINATION: IR BIOPSY LYMPH NODE (HEAD/NECK) CLINICAL HISTORY: Patient with known fol licular lymphoma. ??Concern for transformation. ??Please biopsy left lev el 2 lymphnode (axial img 26) TECHNIQUE: Patient was informed of the risks and be nefits of the procedure and written informed consent obtained. Patient place d supine on the stretcher and the overlying skin was prepped and draped in a sterile fashion. 5 cc of 1% lidocaine was used for local anesthesia. Ultrasoun d guidance was utilized to identify the left sided sonographically abnormal lymp h node measuring 1.3 cm immediately inferior to the left parotid gland. Ultr asound guidance was used to obtain 4 core samples within the 18-gauge system. Holt removed. Patient tolerated the procedure well. No immediate competition s. COMPARISON: PET/CT 03/17/2021 FINDINGS: Architecturally abnormal hypoechoic lymp h nodes throughout the left neck. Procedure Note Olivier Carter MD - 04/09/2021Formatt ing of this note might be different from the original. EXAMINATION: IR BIOPSY LYMPH NODE (HEAD/ NECK) CLINICAL HISTORY: Patient with known fol licular lymphoma. Concern for transformation. Please biopsy left level 2 lymphnode (axial img 26) TECHNIQUE: Patient was informed of the risks and be nefits of the procedure and written informed consent obtained. Patient place d supine on the stretcher and the overlying skin was prepped and draped in a sterile fashion. 5 cc of 1% lidocaine was used for local anesthesia. Ultrasoun d guidance was utilized to identify the left sided sonographically abnormal lymp h node measuring 1.3 cm immediately inferior to the left parotid gland. Ultr asound guidance was used to obtain 4 core samples within the 18-gauge system. Holt removed. Patient tolerated the procedure well. No immediate competition s. COMPARISON: PET/CT 03/17/2021 FINDINGS: Architecturally abnormal hypoechoic lymp h nodes throughout the left neck. IMPRESSION Ultrasound-guided core biopsy of the lef t neck lymph node immediately inferior to the left parotid gland, which was hyp ermetabolic on the recent PET/CT. I performed the procedure. Azucena Campos was present for the proc edure. Thank you for letting us participate in the care of this patient. If you are a health care provider and have any questi ons regarding this report, please contact the number below. For patients w ho have questions please contact the health health care coach that requested your imaging first. Electronically signed by: Olivier hidalgo MD, [facility] ([phone]), at 04/09/2021 2:42 PM Bina Monique MD IMG IR ORDERABLES Surgical Pathology Report (04/09/2021 10:11 AM EDT) Component Value Ref Test Analysis Performed At [facility] Method Time Signature Surgical [id number] ? Location: [address] [place] [address] Report The signing pathologist has (i) examined the relevant preparation(s) for the [facility] specimen(s) and (ii) rendered or confirmed the diagnosis(es) . HOSPITAL LABORATORY . ?Surgic al Pathology DIAGNOSIS Lymph node tissue, biopsy: Follicular lymphoma, Follicu lar, low grade ( grade 1-2 of 3). No transformation present. Electronically signed by: ?Bonny MACEDO, Iain Verified: ??04/11/2021 12:00 ??Hematopathologist Performed at: ??-[facility] Dept. of Pathology, [place], [place] DISCUSSION The lymph node architecture is effaced by a back-to back follicles. The follicles comprise of mostly centrocytes and no s ignificant centroblasts. There are <15 centroblasts ??per hpf. ADDITIONAL STUDIES IMMUNOHISTOCHEMISTRY STUDIES Block: ?A1 Fixative: ?? Formalin ANTIBODY ?RESULT/COMMENT CD3 ? Positive in background T cells CD20 ?Positive in B cells CD21 ?Positive in follicle dendritic cells Ki67 ?Positive in 20-30% of intrafollicular ??B ce lls BCL-2 ? Diffusely positive The immunoperoxidase stains reported above were developed by the clinical laboratory at [facility]. Antibody specifici ties have been verified on tissues with known staining performance characteristics . These stains have not been cleared or approved by the U.S. Food and Drug Admi nistration, however such approval is not required for analyte-specific reagents o f this type. Appropriate positive and negative controls are included for each case. SPECIMEN(S) SUBMITTED A - lymph node, biopsy (Multiple) CLINICAL INFORMATION Patient with known follicula r lymphoma. Concern for transformation. Please biopsy left level II lymph node (axial image 26) SPECIMEN PROCESSING A - Labeled/Fixative: Lymph node (per requisition left neck level II lymph node), formalin. Quantity/Size: Fragments, from 0.3 x 0.1 cm to 0.7 x 0.1 cm Tissue Description: Cook-pink needle core biopsies. Sections/Processing: Entirely submitted in 1 cassette labeled A1. ??pps Specimen (Source) Anatomical Collection Method Collection Time Re ceived Time Location / / Volume Laterality 04/09/2021 10:11 AM EDT Bina Monique MD PATHOLOGY/CYTOLOGY ORDERABLE S Performing Organization Address City/[facility]/[place] [address] Specimen to Pathology (04/09/2021 10:11 AM EDT) Specimen Anatomical Collection Method Collection Time Receive d Time (Source) Location / / Volume Laterality AP Specimen 04/09/2021 10:11 04/09/2021 AM EDT 10:11 AM EDT Narrative [facility] - 04/09/2021 10:11 AM EDT Specimen requisition ordered. ??Separate Pathology report to follow Bina Monique MD PATHOLOGY/CYTOLOGY ORDERABLE S Performing Organization Address City/[facility]/[place] [address] documented in this encounter Visit Diagnoses Diagnosis 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 documented in this encounter
--- OUTSIDE RECORDS SUMMARY | 2022-05-21 01:02 | XMS_ITS | Encounter Summary ---
:1950 Author Organization [facility] [place] [address] Care Team Providers Name Role Phone Unavailable Primary Care Provider Unavailable Encounter Details Date Type Department Care Team Description 05/27/[address] [facility] Marry Acosta, [place] [address] Social History Tobacco Use Types Packs/Day [...] Telephone Encounter - Marry Acosta RN - 05/27/2021 2:44 PM EST Patient is S/P IR chest tube placement 03/20/2021 for Acute recurrent pleural effusion. ?? Phoned to check on totals. Patient is at [facility] right now to be tested for COVID. Iwill phone her Tuesday to check in. documented in this encounter Plan of Treatment Upcoming Encounters Date Type Specialty Care Team Description 06/16/2022 Office Visit Hematology and Oncology Jackie Dillon, CAN FILLING ROOM SWEEPER [facility] ER HEMATOLOGY/ONCOL [place] DEPT. [place], [place] [address] (Wo rk) 06/16/2022 Infusion Hematology and Oncology documented as of this encounter Visit Diagnoses Not on filedocumented in this encounter
--- OUTSIDE RECORDS SUMMARY | 2022-05-21 01:02 | XMS_ITS | Encounter Summary ---
:1950 Author Organization 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 [address] Referral ID Status Reason Start Date Expiration Date Visits Requ ested Visits Authorized [id number] Closed 04/22/2021 12/18/2021 18 18 Encounter Details Date Type Department Care Team Description 07/22/2021 Infusion Hematology Oncology at [facility] rico [address] [facility] of lymph nodes of [address] [phone] Social History Tobacco Use Types Packs/Day Years [...] documented as of this encounter Progress Notes Erica Tolbert RN - 07/22/2021 10:00 AM EST INFUSION THERAPY ADMINISTRATION NOTES DIAGNOSIS: Follicular Lymphoma CYCLE #: 4 Day 1 REASON FOR VISIT: Rituxan/Bendamustine SUBJECTIVE Ms.. Bliss is here for her C4D1 Rituxan and Bendamustine chemotherapy. She saw Venus Mendieta APRN priorto her infusion appt, she has no questions/concerns and is ready for treatment today. OBJECTIVE LAB DATA: Labs drawn today at [facility]. Reviewed and found adequate for treatment today. IV Access: Mediport Right Chest, accessed at [facility] for labs. Flushed with 20cc NS and 500 units Heparin and left accessed for C4D2 tomorrow. Pre administration: Chemotherapy orders independently verified for drug name, route, and dosage per patient's height, weight and BSA by Duglas Tolbert RN and pharmacist on-site. Rituxan - given at Rapid Rate per Venus Mendieta APRN with no reactions/complications. REACTIONS (DESCRIPTION, TIME, INTERVENTION AND EFFECTIVENESS) none ASSESSMENT Ms. Bliss was awake, alert and tolerated treatment well. PLAN Return to clinic tomorrow for C4D2. Patient was reminded to call in the interim with any questions/concerns. documented in this encounter Plan of Treatment Upcoming Encounters Date Type Specialty Care Team Description 06/16/2022 Office Visit Hematology and Oncology Jackie Dillon APRN [facility] HEMATOLOGY/ONCOL SHADIA [place], [place] [address] (Wo rk) 06/16/2022 Infusion Hematology and Oncology documented as of this encounter Visit Diagnoses Diagnosis 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 documented in this encounter Administered Medications Inactive Administered Medications - up to 3 most recent administrations Medication Order MAR Action Action Date Dose Rate Site acetaminophen (Tylenol) tablet Given 07/22/2021 10:59 AM EST 650 mg 650 mg 650 mg, Oral, ONCE, 1 dose, On Tue07/22/21 at 1100, Administer prior to riTUXimab., Routine bendamustine (Bendeka) 173 mg in New Bag 07/22/2021 1:32 PM ES T 173 mg 341.5 mL/hr sodium chloride 0.9% 56.92 mL infusion 173 mg (rounded from 172.8 mg = 90 mg/m2/dose ? 1.92 m2 Treatment Plan BSA from Recorded weight), Intravenous, ONCE, 1 dose, On Tue07/22/21 at 1200, Administer over 10 Minutes, The resulting final concentration of bendamustine in the infusion bag should be between 1.85 - 5.6 mg/mL. Warning Vesicant/Irritant Medication , This agent is restricted to outpatient use. Is this drug being given as an outpatient? Yes dexamethasone (Decadron) injection 10 mg Given 07/22/2021 11:03 AM EST 10 mg 10 mg, Intravenous, ONCE, 1 dose, On Tue07/22/21 at 1100, Administer prior to riTUXimab diphenhydrAMINE (Benadryl) capsule 25 mg Given 07/22/2021 10:59 AM EST 25 mg 25 mg, Oral, ONCE, 1 dose, On Tue07/22/21 at 1100, Routine heparin (pf) (porcine) (100 units/mL) Given 07/22/2021 1:[address] 500 Units flush 5 mL syringe 500 Units 500 Units, Intravenous, ONCE PRN, Starting on Tue07/22/21 at 1037, Until Tue07/22/21 at 1800, Line Care, Refer to Intravenous (IV) Procedure: Accessing Implanted Vascular Access Devices (564) procedure and/or Intravenous (IV) Job Aid: Adult Flushing & Catheter Care (3489) job aid for additional information regarding guidelines and administration., Routine palonosetron (Aloxi) (0.05 mg/mL) injection Given 07/11 11:07 AM EST 0.25 mg 0.25 mg 0.25 mg, Intravenous, ONCE, 1 dose, On Tue07/22/21 at 1100, Administer over 30 seconds., Routine riTUXimab-pvvr (Ruxience) 700 mg in sodium New Bag 07/22 11:51 AM EST 700 mg chloride 0.9% 350 mL infusion (malignant indication) 700 mg, Intravenous, ONCE, 1 dose, On Tue07/22/21 at 1200, Administer Per Protocol., Patient is a candidate for rapid infusion riTUXimab? No, Comments (complete to provide additional information): OK to increase rate if prior dose tolerated sodium chloride 0.9 % (flush) (BD PosiFlush Given 07/22/2021 1:51 PM EST 20 mLs Normal Saline 0.9) flush 5-20 mL 5-20 mL, Intravenous, EVERY 1 MIN PRN, Starting on Tue07/22/21 at 1037, Until Tue07/22/21 at 1800, Line Care, Flush pertains to all indwelling lines. Flush per protocol found in the job aid using the link provided on this medication record. Refer to Intravenous (IV) Job Aid: Adult Flushing & Catheter Care (0145) job aid for additional information regarding guidelines and administration., Routine sodium chloride 0.9% infusion New Bag 07/22/2021 11:00 AM EST 150 mL/hr 150 mL/hr 150 mL/hr, Intravenous, CONTINUOUS, Starting on Tue07/22/21 at 1100, Until Tue07/22/21 at 1800 documented in this encounter Care Teams Treatment Technician Relationship Specialty Start Date End Date None PCP - General 07/07/21 10/18/21 None documented as of this encounter
--- OUTSIDE RECORDS SUMMARY | 2022-05-21 01:02 | XMS_ITS | Encounter Summary ---
:1950 Author Organization [facility] [place] [address] Care Team Providers Name Role Phone Unavailable Primary Care Provider Unavailable Encounter Details Date Type Department Care Team Description 04/22/2021 Clinical Support Hematology/Oncology Venus Mendieta G rade 2 follicular at [facility] ATHLETE MARKETING AGENT lymphoma of [address] [facility] of [place], [place] [facility] [id number] HEMATOLOGY/ONCOLO [phone] [place] DEPT. [place], [place] [address] Social History Tobacco Use Types [...] Sign Reading Time Taken Comments Blood Pressure 134/64 04/22/2021 8:29 AM EDT Pulse 68 04/22/2021 8:29 AM EDT Temperature 35.9 ??C (96.7 ??F) 04/22/2021 8:29 AM EDT Respiratory Rate 16 04/22/2021 8:29 AM EDT Oxygen Saturation 100% 04/22/2021 8:29 AM EDT Inhaled Oxygen Concentration - - Weight 88 kg (194 lb) 04/22/2021 8:29 AM EDT Height 160 cm (5' 2.99) 04/22/2021 8:29 AM EDT Body Mass Index 34.37 04/22/2021 8:29 AM EDT documented in this encounter Progress Notes Venus Mendieta, ATHLETE MARKETING AGENT - 04/22/2021 8:30 AM EDT Brian is here today for a chemotherapy teaching visit and to initiate therapy with BR. Patient Active Problem List Diagnosis ??? Pleural effusion ??? 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 Biopsy at [place]. 09/06/19 LN Interpretation at [facility] Outside slide(s) labeled [id number], collection date 09/06/2019. Lymph node, supra clavicular [...] Plans for restaging and BR followed by . 03/17/21 PET EXAMINATION: NM PET CT STANDARD SKULL BASE TO MID-THIGH COMPARISON: CT chest 02/12/2021, CT chest abdomen and pelvis 10/17/2020, and PET/CT 10/04/2019 HEAD/NECK: FDG avid adenopathy in the bilateral upper and lower cervical and supraclavicular regions and within the bilateral parotids, increased in size and number compared to prior PET/CT of 09/2019. Mis Specialist lymph node within the highest FDG uptake in the left level 2 region measures 10 mm with SUV max of 18.7 (axial image 26). ?? CHEST: FDG avid adenopathy in the bilateral axillary and bilateral mediastinal and hilar regions, similar in size compared to CT chest of 10/17/2020. Mis Specialist lymph node with the highest FDG [...] size compared to prior CT of 10/17/2020. Mis Specialist adenopathy in the highest FDG uptake [...] uptake (SUV max greater than 12) with herbicide service sales representative nodes detailed above, are highly [...] of the ??cellularity. ??Cytogenetics pending. See discussion. ??? Hypertension ??? Hypothyroidism ??? Hypercholesterolemia rBian is doing OK - she is draining 350-400 in the am and 150-200 in the evenings. Her catheter is doing well - no pain. Her breathing is back to baseline. No fevers, chill or night sweats. Her neck adenopathy has been stable. NHL: Today we reviewed that her intitial treatment would consist of 4 or more cycles of R-Bendamustine We reviewed basic chemotherapy biology including nadirs. We reviewed s/e including infusion reactions, cytopenias and associated risk for infection, bleeding, anemia and potential need for blood product transfusions. As she is above 70 years old I will add Onpro into her beacon plan. We reviewed the use of Claritan to decrease risk of bone pain. Neutropenic precautions reviewed: Instructed family that the Absolute Neutrophil Count could become low enough to put Brian Bliss at risk for infection. Brian Bliss should avoid crowds and people with active infections and practice good handwashing at all times. she is aware that she should call theHem/Onc team at any hour if she develops a fever of 100.4 F or greater or any other worrisome symptoms. We also reviewed potential risks of viral reactivation, organ damage to include pulmonary, cardiac, liver and renal. We reviewed TLS and its prophylaxis. She will start allopurinol 300mg daily for 10 days today. Sh ewill push fluids - especially day before and 2 days after therapy. We discussed possibilities of rash, skin and hair changes. It is most likely that Brian will not loose she hair, but likely will experience some thinning with this regimen. N/V/D/C and mouth sores were also discussed as well as preventative measures. RX for compazine provided Other potential side effects to include fatigue, insomnia, arthralgias and myalgias were also reviewed. Written information on all the drugs included in this regimen were provided. All questions and concerns addressed. Brian Bliss voices understanding and consents to treatment. Unfortunatly her treatment had not been approved by insurance before her schedulled start time. As such - she opted to wait to start until approval granted. We did get approval later in the day. We will go ahead and give day 1 Jimenez only and then give R-Jimenez on day 2 for cycle 1 only. Brian Bliss will return to clinic in 2 weeks with repeat labs for a mid cycle check. she will call before then if any concerns or changes in status. documented in this encounter Plan of Treatment Upcoming Encounters Date Type Specialty Care Team Description 06/16/2022 Office Visit Hematology and Oncology Jackie Dillon APRN [facility] HEMATOLOGY/ONCOL SHADIA DEPT. [place], [place] [address] (Wo rk) 06/16/2022 Infusion Hematology and Oncology documented as of this encounter Procedures Procedure Name Priority Date/Time Associated Diagnosis Comme nts CREATININE Routine 04/22/2021 Results for thi s procedure are in the resu lts section. CBC (WITH DIFF) Routine 04/22/2021 Results for this procedure are in the resu lts section. documented in this encounter Results Creatinine (04/22/2021) athologist Signature Creatinine 1.1 LDH 144 Specimen (Source) Anatomical Location Collection Method / Collectio n Time Received Time / Laterality Volume Blood 04/22/2021 Historical Provider CHEMISTRY ORDERABLES CBC (with Diff) (04/22/2021) athologist Signature WBC 3.85 Hemoglobin 10.5 Hematocrit 32.0 Platelets 170 Neutr Abs (ANC) 2.11 Specimen (Source) Anatomical Location Collection Method / Collectio n Time Received Time / Laterality Volume Blood 04/22/2021 Historical Provider HEMATOLOGY ORDERABLES documented in this encounter Visit Diagnoses Diagnosis 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 documented in this encounter
--- OUTSIDE RECORDS SUMMARY | 2022-05-21 01:02 | XMS_ITS | Encounter Summary ---
:1950 Author Organization [facility] [place] [address] Care Team Providers Name Role Phone Unavailable Primary Care Provider Unavailable Encounter Details Date Type Department Care Team Description 03/25/2021 Orders Only Radiology at [facility] Edd Valadez MD [facility] [place] [id number] RADIOLOGY DEPT [phone] [place], [place] [address] (Wo rk) Social History Tobacco [...] documented as of this encounter Progress Notes Edd Valadez MD - 03/25/2021 5:14 PM EDT Images from the original note were not included. NEURORADIOLOGY PRE-PROCEDURE NOTE Name: Brian Bliss Date of : 1950 Referring Physician: Bina Monique MD Indication: Patient with known follicular lymphoma. ??Concern for transformation. ??Please biopsy left level 2 lymphnode (axial img 26) Planned Procedure: US guided left cervical lymph node biopsy Chief Complaint/HPI: Brian Bliss is a 70 y.o. female follicular lymphoma with concern for transformation on most recent PET/CT. Neuroradiology is being consulted for US-guided cervical lymph node biopsy for further evaluation. Lymph node of interest is just superficial and inferior to the left parotid on axial image 26 of PET/CT 03/17/21. Patient Active Problem List Diagnosis Code ??? 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 Hypertension I10 ??? Hypothyroidism E03.9 ??? Hypercholesterolemia E78.00 ??? Pleural effusion J90 Allergies Allergen Reactions ??? Sulfa (Sulfonamide Antibiotics) Medications: Current Outpatient Medications: ??? dilTIAZem CD (Cardizem CD) 300 mg Capsule, Sust. Release 24 hr, Take 300 mg by mouth daily., Disp: , Rfl: ??? tolterodine LA (Detrol LA) 2 mg Capsule, Sust. Release 24 hr, Take 2 mg by mouth daily., Disp: ,Rfl: ??? lisinopriL-hydrochlorothiazide (zestoretic) 20-25 mg Tablet, Take 1 tablet by mouth daily., Disp: , Rfl: ??? UNABLE TO FIND, Krill oil daily, Disp: , Rfl: ??? atorvastatin (Lipitor) 10 mg Tablet, 10 mg daily., Disp: , Rfl: ??? levothyroxine (Synthroid) 75 mcg Tablet, Take 75 mcg by mouth daily., Disp: , Rfl: ??? venlafaxine XR (Effexor-XR) 37.5 mg Capsule, Sust. Release 24 hr, Take 37.5 mg by mouth daily., Disp: , Rfl: ??? ubiquinone (coenzyme Q10) 100 mg Capsule, Take 200 mg by mouth daily., Disp: , Rfl: ??? cholecalciferol, Vitamin D3, (Vitamin D-3) 50 mcg (2,000 unit) Tablet, Take 50 Units by mouth daily., Disp: , Rfl: Labs: Lab Results Component Value Date/Time PLATELET 156 03/19/2021 07:27 AM Imaging: PET/CT 03/17/21 Assessment / Plan: Brian Bliss is a 70 y.o. female follicular lymphoma with concern for transformation on most recent PET/CT. Neuroradiology to perform US- guided cervical lymph node biopsy for furtherevaluation. Lymph node of interest is just superficial and inferior to the left parotid as seen on axial image 26 of PET/CT 03/17/21. Labs to be performed day of procedure: Platelet count and coagulation profile the day of the procedure. Medication to STOP: none Sedation: no sedation Additional medications for procedure: Lidocaine 1% Consent: pending Discussed with Dr. Alvarez who agrees with plan. If concern for localizing correct node on US, can consider marking appropriate node under CT guidance before biopsy. Edd Valadez MD 03/25/2021 5:14 PM documented in this encounter Plan of Treatment Upcoming Encounters Date Type Specialty Care Team Description 06/16/2022 Office Visit Hematology and Oncology Jackie Dillon, GRAIN SCOOPER [facility] HEMATOLOGY/ONCOL SHAD[facility] DEPT. [place], [place] [address] (Wo rk) 06/16/2022 Infusion Hematology and Oncology documented as of this encounter Visit Diagnoses Not on filedocumented in this encounter
--- OUTSIDE RECORDS SUMMARY | 2022-05-21 01:02 | XMS_ITS | Encounter Summary ---
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 losartan-hydrochlorothiazide 0 04/01/ 021 (HYZAAR) 100-25 mg Tablet DILTiazem HCl [...] Office Visit Hematology and Oncology Jackie Dillon, SEMICONDUCTOR PACKAGES TESTER [facility] [place] [address] (Wo rk) 06/16/2022 Infusion Hematology and Oncology documented as of this encounter Procedures Procedure Name Priority Date/Time Associated Diagnosis Comme nts XR CHEST PA AND STAT 07/07/2021 2:49 PM Grade 2 follicular Results for this LATERAL EST lymphoma of lymph procedure are in nodes of multiple the result s regions section. Pleural effusion, malignant documented in this encounter Results XR Chest PA & Lateral (Generic) (07/07/2021 2:49 PM EST) Anatomical Region Laterality Modality Chest N/A Digital Radiography Specimen (Source) Anatomical Location Collection Method / Collectio n Time Received Time / Laterality Volume Impressions 07/07/2021 2:58 PM EST Small right apical pneumothorax post Pleurx removal. Thank you for letting us participate in the care of this patient. ??If you are a health care provider and have any questi ons regarding this report, please contact the number below. ??For patients who have questions please contact the health daycare provider that requested your imaging first. ? Narrative 07/07/2021 2:58 PM EST EXAMINATION: XR CHEST PA AND LATERAL (GENERIC) CLINICAL HISTORY: Patient is S/P PleurX catheter removal, eval for changes and PTX TECHNIQUE: PA and lateral views of the c hest. COMPARISON: 07/07/2021 CT and 03/21/2021 chest radiograph. FINDINGS: Right anterior chest wall Medi port catheter in unchanged position. Right-sided Pleurx has been removed. Sma ll right apical pneumothorax is present. No residual pleural effusion. The lungs appear clear. The cardiomediastinal silhouette, jared, and pulmonary vessel m arkings are within normal limits. No interval osseous findings are seen. Procedure Note Ashley Smith MD - 07/07/2021Formatt ing of this note might be different from the original. EXAMINATION: XR CHEST PA AND LATERAL (GE NERIC) CLINICAL HISTORY: Patient is S/P PleurX catheter removal, eval for changes and PTX TECHNIQUE: PA and lateral views of the c hest. COMPARISON: 07/07/2021 CT and 03/21/2021 chest radiograph. FINDINGS: Right anterior chest wall Medi port catheter in unchanged position. Right-sided Pleurx has been removed. Sma ll right apical pneumothorax is present. No residual pleural effusion. The lungs appear clear. The cardiomediastinal silhouette, jared, and pulmonary vessel m arkings are within normal limits. No interval osseous findings are seen. IMPRESSION Small right apical pneumothorax post Ple urx removal. Thank you for letting us participate in the care of this patient. If you are a health care provider and have any questi ons regarding this report, please contact the number below. For patients w ho have questions please contact the health daycare provider that requested your imaging first. Tyshawn Cuello MD IMG DX ORDERABLES documented in this encounter Visit Diagnoses Diagnosis 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 Pleural effusion, malignant Malignant pleural effusion documented in this encounter Care Teams Acetylene Gas Compressor Relationship Specialty Start Date End Date None PCP - General 07/07/21 10/18/21 None documented as of this encounter
--- OUTSIDE RECORDS SUMMARY | 2022-05-21 01:02 | XMS_ITS | Encounter Summary ---
:1950 Author Organization [facility] [place] [address] Care Team Providers Name Role Phone None Primary Care Provider Unavailable Reason for Visit Reason Onset Date Comments Dizziness 08/03/2021 Encounter Details Date Type Department Care Team Description 08/03/2021 Telephone Hematology/Oncology at Izzy Del Valle RN [place] [phone] Social History Tobacco Use Types Packs/Day [...] Telephone Encounter - Izzy Mayer RN - 08/03/2021 3:03 PM EST Caller: Brian Relationship: Self Clarified Two Patient Identifiers: [x] Reason For Call: lightheadness Assessment/Symptom Review (onset, location, duration, what makes it better or worse, pertinent positives and negatives): Patient states she has been noting lightheadness more in day then evening, happens when she stands up too quickly, bends over or to her random times. She is drinking lots of water, 2 cups coffee in am and no ETOH. She has slight cough not bringing up anything, no fever or chills, urinating fine no blood in urine, moving bowels fine no blood in stools noted. Last rituxan , bendamustine tx 07/22/21 hbg 8.7 on 07/22/21. Review of Systems Related to Reason for Call: System POS NEG Not Applicable Head (ENT /Neuro) [x] [] [] Cardiac [] [x] [] Respiratory [] [x] [] GI [] [x] [] [] [x] [] Musculoskeletal [] [] [x] Integumentary [] [] [x] Mental Health [] [] [x] Select Specific Decision Support Tool Used: None available, provider to review Dr. Monique Name of Guideline/Protocol Used: Dr. Monique Disposition/Plan of Care: Defer to provider recommendation Pt will get cbc diff at [facility], If HBG below 8 she will need unit of irradiated blood. Patient/Caregiver verbalizes understanding of plan of care: Yes Patient/Caregiver agrees with plan: Yes Advised patient/caregiver to: Pt will go to [facility] later today and get cbc diff, will review results with Dr. Monique. Patient/Caregiver demonstrates understanding via teach back: Yes ADD Recent Results (from the past 24 hour(s)) CBC (with Diff) Result Value Ref Range WBC 6.8 Hemoglobin 9.4 Hematocrit 27.8 Platelets 193 Neutr Abs (ANC) 6.18 Dr. Monique notified of results, told pt she states she has lost 35 lbs and medication has not changed, she will go to ER if any severe dizziness, will follow up with her in AM to let her know what would like her to do. She agrees with plan. documented in this encounter Plan of Treatment Upcoming Encounters Date Type Specialty Care Team Description 06/16/2022 Office Visit Hematology and Oncology Jackie Dillon, CONSULTING ANALYST [facility] HEMATOLOGY/[facility] [place] [address] (Wo rk) 06/16/2022 Infusion Hematology and Oncology documented as of this encounter Procedures Procedure Name Priority Date/Time Associated Diagnosis Comme nts CBC (WITH DIFF) Routine 08/03/2021 Results for this procedure are in the resu lts section. documented in this encounter Results CBC (with Diff) (08/03/2021) P athologist Signature WBC 6.8 Hemoglobin 9.4 Hematocrit 27.8 Platelets 193 Neutr Abs (ANC) 6.18 Specimen (Source) Anatomical Location Collection Method / Collectio n Time Received Time / Laterality Volume Blood 08/03/2021 Historical Provider HEMATOLOGY ORDERABLES documented in this encounter Visit Diagnoses Not on filedocumented in this encounter Care Teams Veterinary Nurse Relationship Specialty Start Date End Date None PCP - General 07/07/21 10/18/21 None documented as of this encounter
--- OUTSIDE RECORDS SUMMARY | 2022-05-21 01:02 | XMS_ITS | Encounter Summary ---
:1950 Author Organization [facility] [place] [address] Care Team Providers Name Role Phone None Primary Care Provider Unavailable Encounter Details Date Type Department Care Team Description 07/22/2021 Office Visit Hematology/Oncology Jose Monique MD [facility] DR HEMATOLOGY/[place] [address] Grade 2 follicular at [facility] Venus Mendieta APRN [facility] DR HEMATOLOGY/[place] [address] [address] nodes of multiple [place], [place] regions [phone] Social History Tobacco Use [...] Sign Reading Time Taken Comments Blood Pressure 162/65 07/22/2021 9:26 AM EST Pulse 84 07/22/2021 9:26 AM EST Temperature 36.3 ??C (97.3 ??F) 07/22/2021 9:26 AM EST Respiratory Rate 20 07/22/2021 9:26 AM EST Oxygen Saturation 100% 07/22/2021 9:26 AM EST Inhaled Oxygen Concentration - - Weight 83 kg (183 lb) 07/22/2021 9:26 AM EST Height 158.5 cm (5' 2.4) 07/22/2021 9:26 AM EST Body Mass Index 33.04 07/22/2021 9:26 AM EST documented in this encounter Progress Notes Venus Mendieta, ROOF FOREMAN - 07/22/2021 9:30 AM EST Subjective Patient ID: Brian Bliss is a 71 y.o. female here for f/u of NHL Patient Active Problem List Diagnosis ??? Pleural effusion ??? 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 Biopsy at [facility]. 09/06/19 LN Interpretation at [facility] Outside slide(s) labeled [id number], collection date 09/06/2019. Lymph node, supra clavicular [...] and BR followed by MR. 03/04/21 BMBX [id number] ? Location: [facility] ??SPECIMEN RESULTS Bone marrow aspirate, biopsy , peripheral smear : 1. ??Follicular lymphoma, by history. 2. ??Normocellular marrow (40%) with maturing trilineage hematopoiesis and involved by ??paratrabecular lymphoid aggregates c/w ??Follicular lymphoma, involving 40% of the ??cellularity. SYNOPSIS OF ANCILLARY STUDY RESULT(S) Cytogenetic analysis: Karyotyping, [facility]: ??46,XX[20] 03/17/21 PET EXAMINATION: NM PET CT STANDARD SKULL BASE TO MID-THIGH COMPARISON: CT chest 02/12/2021, CT chest abdomen and pelvis 10/17/2020, and PET/CT 10/04/2019 HEAD/NECK: FDG avid adenopathy in the bilateral upper and lower cervical and supraclavicular regions and within the bilateral parotids, increased in size and number compared to prior PET/CT of 09/2019. Fabric Cutter lymph node within the highest FDG uptake in the left level 2 region measures 10 mm with SUV max of 18.7 (axial image 26). ?? CHEST: FDG avid adenopathy in the bilateral axillary and bilateral mediastinal and hilar regions, similar in size compared to CT chest of 10/17/2020. Fabric Cutter lymph node with the highest FDG uptake [...] size compared to prior CT of 10/17/2020. Fabric Cutter adenopathy in the highest FDG uptake in [...] uptake (SUV max greater than 12) with advertising sales representative nodes detailed above, are highly suspicious for lymphoma transformation and would be amenable to CT-guided biopsy if clinically indicated. 4. Large right pleural effusion, unchanged compared to prior CT of 02/16/2021. ECHO [facility] EF LDH normal 171 03/19/2021 BMBx Bone [...] Hypothyroidism ??? Hypercholesterolemia HPI Brian is doing OK - her main concnern/complaint is that she does not sleep well the week of treatment. She is requesting sleep aid for this - she otherwise has no issues sleeping. She is still struggling with her shoulder. She does notice some changes with her concentration. She did have her pleurax cath pulled. She sometimes worries that she is filling up with fluids - but no significant SHERMAN or SOB. No respiratory issues. Review of Systems Constitutional: Positive for fatigue. Sleep changes as above HENT: Negative. Eyes: Negative. Respiratory: Negative. Negative for cough and shortness of breath. Cardiovascular: Negative. Negative for chest pain, palpitations and leg swelling. Gastrointestinal: Negative. Negative for constipation, diarrhea, nausea and vomiting. Genitourinary: Negative. Musculoskeletal: Positive for arthralgias. Chronic left shoulder pain Skin: Negative. Neurological: Negative. Negative for weakness and numbness. Hematological: Negative. Psychiatric/Behavioral: Positive for decreased concentration. Objective Physical Exam Constitutional: General: She is [...] and oriented to person, place, and time. Recent Results (from the past 72 hour(s)) CBC (with Diff) Result Value Ref Range WBC 5.55 Hemoglobin 8.7 Hematocrit 25.1 Platelets 172 Neutr Abs (ANC) 3.91 Creatinine 1 BUN 23 LDH 164 BP 162/65 (Patient Position: Sitting) Pulse 84 Temp 36.3 ??C (97.3 ??F) (Temporal) Resp 20 Ht 158.5 cm (5' 2.4) Wt 83 kg (183 lb) SpO2 100% BMI 33.04 kg/m?? Assessment & Plan Brian Bliss?is a very [...] of Pleurx catheter for recurrent pleural effusions. This was recently removed at the end of June 2021. ?? 04/22/21- started Rituxan/Bendamustine x 6 cycles ?? She has tolerated her therapy very well. ?? She did have a sinus infection after cycle 2 This has resolved. Cycle 3 was delayed for 1 week for pleurax catheter insertion site infection. ?? We christian lproceed with cycle 4 today. Insomnia during treatment week - Ambien for sleep PRN Cognitive dysfunction - reviewed that hsi can be a chemotherpay side effect. Discussed minimizing multi tasking, lists and slowing down. Also encourage focus activities such as crosswords, crafts, cooking, ect. Her hemoglobin has been a bit on the low side, anemia work up wihtout specific etiology. Will continue to monitor. If does not recover s/p therapy we may consider repeat bone marrow biopsy to further evaluate. Brian Bliss??will return to clinic in 4 weeks??for consideration of cycle 5?she??will call before then if any concerns or changes in status. documented in this encounter Plan of Treatment Upcoming Encounters Date Type Specialty Care Team Description 06/16/2022 Office Visit Hematology and Oncology Jackie Dillon, ROOF FOREMAN [facility] HEMATOLOGY/[facility] DEPT. [place], [place] [address] (Wo rk) 06/16/2022 Infusion Hematology and Oncology documented as of this encounter Procedures Procedure Name Priority Date/Time Associated Diagnosis Comme nts CBC (WITH DIFF) Routine 07/22/2021 Results for this procedure are in the resu lts section. documented in this encounter Results CBC (with Diff) (07/22/2021) P athologist Signature WBC 5.55 Hemoglobin 8.7 Hematocrit 25.1 Platelets 172 Neutr Abs (ANC) 3.91 Creatinine 1 BUN 23 LDH 164 Specimen (Source) Anatomical Location Collection Method / Collectio n Time Received Time / Laterality Volume Blood 07/22/2021 Historical Provider HEMATOLOGY ORDERABLES documented in this encounter Visit Diagnoses Diagnosis 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 documented in this encounter Care Teams Semi Automatic Sewing Machine Operator Relationship Specialty Start Date End Date None PCP - General 07/07/21 10/18/21 None documented as of this encounter
--- OUTSIDE RECORDS SUMMARY | 2022-05-21 01:02 | XMS_ITS | Encounter Summary ---
:1950 Author Organization [facility] [address] Care Team Providers Name Role Phone Unavailable Primary Care Provider Unavailable Encounter Details Date Type Department Care Team Description 05/20/2021 Office Visit Hematology/Oncology Jose Monique MD [facility] DR HEMATOLOGY/[place] [address] Grade 2 follicular at [facility] Venus Mendieta APRN [facility] DR HEMATOLOGY/[place] [address] lymphoma [address] nodes of multiple [place], [place] regions [phone] Social History Tobacco Use [...] Sign Reading Time Taken Comments Blood Pressure 147/76 05/20/2021 9:29 AM EST Pulse 87 05/20/2021 9:29 AM EST Temperature 36.4 ??C (97.5 ??F) 05/20/2021 9:29 AM EST Respiratory Rate 20 05/20/2021 9:29 AM EST Oxygen Saturation 100% 05/20/2021 9:29 AM EST Inhaled Oxygen Concentration - - Weight 85.8 kg (189 lb 3.2 oz) 05/20/2021 9:29 AM EST Height 160 cm (5' 2.99) 05/20/2021 9:29 AM EST Body Mass Index 33.52 05/20/2021 9:29 AM EST documented in this encounter Progress Notes Venus Mendieta, LIME PULLER - 05/20/2021 9:30 AM EST Subjective: Patient ID: Brian Bliss is a 71 y.o. female here for f/u of NHL Patient Active Problem List Diagnosis ??? Pleural effusion ??? 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 Biopsy at [place]. 09/06/19 LN Interpretation at [facility] Outside slide(s) labeled [id number], collection date 09/06/2019. Lymph node, supra clavicular [...] and BR followed by MR. 03/04/21 BMBX [id number] ? Location: [facility] ??SPECIMEN RESULTS Bone marrow aspirate, biopsy , peripheral smear : 1. ??Follicular lymphoma, by history. 2. ??Normocellular marrow (40%) with maturing trilineage hematopoiesis and involved by ??paratrabecular lymphoid aggregates c/w ??Follicular lymphoma, involving 40% of the ??cellularity. SYNOPSIS OF ANCILLARY STUDY RESULT(S) Cytogenetic analysis: Karyotyping, -[facility]: ??46,XX[20] 03/17/21 PET EXAMINATION: NM PET CT STANDARD SKULL BASE TO MID-THIGH COMPARISON: CT chest 02/12/2021, CT chest abdomen and pelvis 10/17/2020, and PET/CT 10/04/2019 HEAD/NECK: FDG avid adenopathy in the bilateral upper and lower cervical and supraclavicular regions and within the bilateral parotids, increased in size and number compared to prior PET/CT of 09/2019. Director Of Leadership Development lymph node within the highest FDG uptake in the left level 2 region measures 10 mm with SUV max of 18.7 (axial image 26). ?? CHEST: FDG avid adenopathy in the bilateral axillary and bilateral mediastinal and hilar regions, similar in size compared to CT chest of 10/17/2020. Director Of Leadership Development lymph node with the highest FDG uptake [...] size compared to prior CT of 10/17/2020. Director Of Leadership Development adenopathy in the highest FDG uptake in [...] uptake (SUV max greater than 12) with traveling sales representative nodes detailed above, are highly [...] Hypothyroidism ??? Hypercholesterolemia HPI Brian is doing very well. Her Pleurex draining is now only daily - and less than 200cc. Plan to decrease once down to less than 100cc daily. Weekly phone calls with Pulmonary. No SOB or [place]. She did get a bit tired the week of therapy - but since then has felt 'normal' . She had no N/V. No significant bowel issues. No fevers or chills. Her palpable adenopathy hs resolved. Review of Systems Constitutional: Positive for fatigue. HENT: Negative. Eyes: Negative. Respiratory: Negative. Negative for cough and shortness of breath. Cardiovascular: Negative. Negative for chest pain, palpitations and leg swelling. Gastrointestinal: Negative. Negative for constipation, diarrhea, nausea and vomiting. Genitourinary: Negative. Musculoskeletal: Negative. Skin: Negative. Neurological: Negative. Negative for weakness and numbness. Psychiatric/Behavioral: Negative. Objective: Physical Exam Constitutional: General: [...] Normal range of motion and neck supple. Comments: She does have prominent right sternoclavicular notch area. She reports this is chronic but does seem to be increasing over time. Lymphadenopathy: Cervical: No cervical adenopathy. Upper Body: Right upper body: No supraclavicular adenopathy. Left upper body: No supraclavicular adenopathy. Skin: General: Skin is warm and dry. Neurological: Mental Status: She is alert and oriented to person, place, and time. Recent Results (from the past 72 hour(s)) CBC (with Diff) Result Value Ref Range WBC 3.73 Hemoglobin 9.5 Hematocrit 28.0 Platelets 153 Neutr Abs (ANC) 2.14 Creatinine 0.8 BUN 23 LDH 156 BP 147/76 (Patient Position: Sitting) Pulse 87 Temp 36.4 ??C (97.5 ??F) (Temporal) Resp 20 Ht 160 cm (5' 2.99) Wt 85.8 kg (189 lb 3.2 oz) SpO2 100% BMI 33.52 kg/m?? Assessment and Plan: Brian Bliss?is a [...] and evaluation of the pleural fluid confirmed lymphoma. ?? On March 20, 2021 she has an insertion of Pleurx catheter for recurrent pleural effusions. 04/22/21- Rituxan/Bendamustine x 6 cycles ?? C1- she tolerated treatment well. No evidence of clinical toxicities. Pleurx catheter is being drained only once a day- averages 200cc. She can no longer palpate adenopathy. Feels well. ANC is stable, HG is down a bit, montgomery snot require intervention at this time - will monitor closely. MCV stable. We will proceed with cycle 2 today. Brian Bliss will return to clinic in 4 weeks for consideration of cycle 3 she will call before thenif any concerns or changes in status. ? documented in this encounter Plan of Treatment Upcoming Encounters Date Type Specialty Care Team Description 06/16/2022 Office Visit Hematology and Oncology Jackie Dillon APRN [facility] HEMATOLOGY/[facility]. [place], [place] [address] (Wo rk) 06/16/2022 Infusion Hematology and Oncology documented as of this encounter Procedures Procedure Name Priority Date/Time Associated Diagnosis Comme nts CBC (WITH DIFF) Routine 05/20/2021 Results for this procedure are in the resu lts section. documented in this encounter Results CBC (with Diff) (05/20/2021) P athologist Signature WBC 3.73 Hemoglobin 9.5 Hematocrit 28.0 Platelets 153 Neutr Abs (ANC) 2.14 Creatinine 0.8 BUN 23 LDH 156 Specimen (Source) Anatomical Location Collection Method / Collectio n Time Received Time / Laterality Volume Blood 05/20/2021 Historical Provider HEMATOLOGY ORDERABLES documented in this encounter Visit Diagnoses Diagnosis 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 documented in this encounter
--- OUTSIDE RECORDS SUMMARY | 2022-05-21 01:02 | XMS_ITS | Encounter Summary ---
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 [address] Referral ID Status Reason Start Date Expiration Date Visits Requ ested Visits Authorized [id number] Closed 04/22/2021 12/18/2021 18 18 Encounter Details Date Type Department Care Team Description 06/25/2021 Infusion Hematology Oncology at [place] 2 follicular lymphoma [facility] of lymph nodes of [address] [phone] Social History Tobacco Use Types Packs/Day Years [...] Sign Reading Time Taken Comments Blood Pressure 147/55 06/25/2021 10:51 AM EST Pulse 89 06/25/2021 10:51 AM EST Temperature 36.5 ??C (97.7 ??F) 06/25/2021 10:51 AM EST Respiratory Rate 16 06/25/2021 10:51 AM EST Oxygen Saturation 100% 06/25/2021 10:51 AM EST Inhaled Oxygen Concentration - - Weight 86 kg (189 lb 9.6 oz) 06/25/2021 10:51 AM EST Height 160 cm (5' 2.99) 06/25/2021 10:51 AM EST Body Mass Index 33.6 06/25/2021 10:51 AM EST documented in this encounter Progress Notes Christy Galloway RN - 06/25/2021 11:00 AM EST INFUSION THERAPY ADMINISTRATION NOTES DIAGNOSIS: follicular lymphoma CYCLE #2: Day 2 REASON FOR VISIT: Bendamustine, Neulasta OnPRO SUBJECTIVE Brian Bliss offers no complaints. OBJECTIVE LAB DATA: Done 06/24/21 at [facility] and adequate for treatment. IV ACCESS: Mediport Pre administration: Chemotherapy orders independently verified for drug name, route, and dosage per patient's height, weight and BSA by Christy Galloway, RN & onsite pharmacist. REACTIONS (DESCRIPTION, TIME, INTERVENTION AND EFFECTIVENESS) none ASSESSMENT Brian Carlos Izaiah was awake, alert and tolerated treatment well. Neulasta Onpro placed on right arm, patient aware of when to remove tomorrow. PLAN Return to clinic per routine. documented in this encounter Plan of Treatment Upcoming Encounters Date Type Specialty Care Team Description 06/16/2022 Office Visit Hematology and Oncology Jackie Dillon, SKI PATROL DIRECTOR [facility] HEMATOLOGY/[facility] DEPT. [place], [place] [address] (Wo rk) 06/16/2022 Infusion Hematology and Oncology documented as of this encounter Visit Diagnoses Diagnosis 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 documented in this encounter Administered Medications Inactive Administered Medications - up to 3 most recent administrations Medication Order MAR Action Action Date Dose Rate Site bendamustine (Bendeka) 173 mg New Bag 06/25/2021 11:30 AM 173 mg 341.5 mL/hr in sodium chloride 0.9% 56.92 EST mL infusion 173 mg (rounded from 172.8 mg = 90 mg/m2/dose ? 1.92 m2 Treatment Plan BSA from Recorded weight), Intravenous, ONCE, 1 dose, On Yocasta 06/25/21 at 1100, Administer over 10 Minutes, The resulting final concentration of bendamustine in the infusion bag should be between 1.85 - 5.6 mg/mL. Warning Vesicant/Irritant Medication , This agent is restricted to outpatient use. Is this drug being given as an outpatient? Yes dexamethasone (Decadron) tablet 10 mg Given 06/25/2021 10:59 AM EST 10 mg 10 mg, Oral, ONCE, 1 dose, On Yocasta 06/25/21 at 1100, Administer prior to chemotherapy, Routine heparin (pf) (porcine) (100 units/mL) Given 06/25/2021 11:48 AM EST 500 Units flush 5 mL syringe 500 Units 500 Units, Intravenous, ONCE PRN, Starting on Yocasta 06/25/21 at 0819, Until Yocasta 06/25/21 at 1428, Line Care, Refer to Intravenous (IV) Procedure: Accessing Implanted Vascular Access Devices (014) procedure and/or Intravenous (IV) Job Aid: Adult Flushing & Catheter Care (8839) job aid for additional information regarding guidelines and administration., Routine pegfilgrastim (Neulasta Onpro) (6 Given 06/25/2021 11:36 AM EST 6 mg Right Arm mg/0.6 mL) injection kit 6 mg 6 mg, Subcutaneous, ONCE, 1 dose, On Yocasta 06/25/21 at 1100, Allow the prefilled syringe co-packaged with the on-body injector to reach room temperature at least 30 minutes prior to administration., Routine, This agent is restricted to outpatient use. Is this drug being given as an outpatient? Yes sodium chloride 0.9 % (flush) (BD PosiFlush Given 06/10 11:48 AM EST 20 mLs Normal Saline 0.9) flush 5-20 mL 5-20 mL, Intravenous, EVERY 1 MIN PRN, Starting on Tue06/24/21 at 1540, Until Yocasta 06/25/21 at 1428, Line Care, Flush pertains to all indwelling lines. Flush per protocol found in the job aid using the link provided on this medication record. Refer to Intravenous (IV) Job Aid: Adult Flushing & Catheter Care (1366) job aid for additional information regarding guidelines and administration., Routine documented in this encounter
--- OUTSIDE RECORDS SUMMARY | 2022-05-21 01:02 | XMS_ITS | Encounter Summary ---
:1950 Author Organization [facility] [place] [address] Care Team Providers Name Role Phone Unavailable Primary Care Provider Unavailable Reason for Visit Reason Onset Date Comments Follow-up 05/28/2021 Encounter Details Date Type Department Care Team Description 05/28/2021 Telephone Hematology/Oncology at Izzy Del Valle RN Follow-up [place] [phone] Social History Tobacco Use Types Packs/Day [...] Telephone Encounter - Izzy Mayer RN - 05/28/2021 10:23 AM EST Called and spoke with Brian. She is feeling better today. Slept well and is pushing fluids. She states her dizziness is gone and vision is better. She did get covid tested yesterday at [facility]. If she is positive they will call her by tomorrow. If negative they will not call her and she can go online to look for results. She will keep us informed. documented in this encounter Plan of Treatment Upcoming Encounters Date Type Specialty Care Team Description 06/16/2022 Office Visit Hematology and Oncology Jackie Dillon, BREAKER OFF [facility] H[facility]ATOLOGY/[facility] DEPT. [place], [place] [address] (Wo rk) 06/16/2022 Infusion Hematology and Oncology documented as of this encounter Visit Diagnoses Not on filedocumented in this encounter
--- OUTSIDE RECORDS SUMMARY | 2022-05-21 01:02 | XMS_ITS | Encounter Summary ---
:1950 Author Organization [facility] [address] Care Team Providers Name Role Phone Unavailable Primary Care Provider Unavailable Encounter Details Date Type Department Care Team Description 05/18/2021 Telephone Thoracic Surgery at [facility] Marry Acosta, [place] [phone] Social History Tobacco Use Types Packs/Day [...] Telephone Encounter - Marry Acosta RN - 05/18/2021 4:55 PM EST Patient is S/P IR chest tube placement 03/20/2021 for Acute recurrent pleural effusion. ?? Phone call to Brian today to check in on totals. Over the last 3 days as follows, clear, straw colored drainage: 05/16 - 150mls 05/17 - 175mls 05/18 - 75mls Reviewed with Brian that when she has 2 consecutive days with less than 100mls, she can go to everyother day drainage. She reports today the the sutures are no longer in place. She is aware to take extra care when doing her procedure each day and to reinforce with tape and her tegaderm. She will call with any issues. Next treatment round is this Tuesday and Tuesday. Will monitor for decrease in totals. documented in this encounter Plan of Treatment Upcoming Encounters Date Type Specialty Care Team Description 06/16/2022 Office Visit Hematology and Oncology Jackie Dillon, MOBILE DEVELOPMENT MANAGER [facility] HEMATOLOGY/[facility] DEPT. [place], [place] [address] (Wo rk) 06/16/2022 Infusion Hematology and Oncology documented as of this encounter Visit Diagnoses Not on filedocumented in this encounter
--- OUTSIDE RECORDS SUMMARY | 2022-05-21 01:02 | XMS_ITS | Encounter Summary ---
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 [address] Referral ID Status Reason Start Date Expiration Date Visits Requ ested Visits Authorized [id number] Closed 04/22/2021 12/18/2021 18 18 Encounter Details Date Type Department Care Team Description 06/24/2021 Infusion Hematology Oncology at [facility] rico 2 follicular lymphoma [facility] of lymph nodes of [address] [phone] Social History Tobacco Use [...] documented as of this encounter Progress Notes Niru Rasheed RN - 06/24/2021 10:30 AM EST INFUSION THERAPY ADMINISTRATION NOTES DIAGNOSIS: Follicular Lymphoma CYCLE #: Cycle 3, Day 1 - Rituximab/Bendamustine REASON FOR VISIT: To receive chemotherapy. SUBJECTIVE: Brian Bliss offers no complaints. OBJECTIVE: Seen by provider. Ready to treat, LAB DATA: WBC - 5.20, H/H - 8.7/26.0, Plt Ct - 185, ANC - 2.05, Lytes wnl, BUn/Cr - 23/1.0, LDH - 176 IV ACCESS: Port accessed off site. Flushes readily with brisk blood return. Pre administration: Chemotherapy orders independently verified for drug name, route, and dosage per patient's height, weight and BSA by Niru Rasheed RN and Staff Pharmacist(s). REACTIONS (DESCRIPTION, TIME, INTERVENTION AND EFFECTIVENESS) none ASSESSMENT: Brian Bliss was awake, alert and tolerated treatment well. Port flushed with 20 cc's of NS and 500 units of heparin and remains accessed for day 2 tomorrow. PLAN: Return to clinic tomorrow for day 2. documented in this encounter Plan of Treatment Upcoming Encounters Date Type Specialty Care Team Description 06/16/2022 Office Visit Hematology and Oncology Jackie Dillon, CUSTOMER SUPPORT MANAGER [facility] [address] (Wo rk) 06/16/2022 Infusion Hematology and Oncology documented as of this encounter Visit Diagnoses Diagnosis 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 documented in this encounter Administered Medications Inactive Administered Medications - up to 3 most recent administrations Medication Order MAR Action Action Date Dose Rate Site acetaminophen (Tylenol) tablet Given 06/24/2021 10:41 AM EST 650 mg 650 mg 650 mg, Oral, ONCE, 1 dose, On Tue06/24/21 at 1100, Administer prior to riTUXimab., Routine bendamustine (Bendeka) 173 mg in New Bag 06/24/2021 2:42 PM ES T 173 mg 341.5 mL/hr sodium chloride 0.9% 56.92 mL infusion 173 mg (rounded from 172.8 mg = 90 mg/m2/dose ? 1.92 m2 Treatment Plan BSA from Recorded weight), Intravenous, ONCE, 1 dose, On Tue06/24/21 at 1200, Administer over 10 Minutes, The resulting final concentration of bendamustine in the infusion bag should be between 1.85 - 5.6 mg/mL. Warning Vesicant/Irritant Medication , This agent is restricted to outpatient use. Is this drug being given as an outpatient? Yes dexamethasone (Decadron) injection 10 mg Given 06/24/2021 10:42 AM EST 10 mg 10 mg, Intravenous, ONCE, 1 dose, On Tue06/24/21 at 1100, Administer prior to riTUXimab diphenhydrAMINE (Benadryl) capsule 25 mg Given 06/24/2021 10:41 AM EST 25 mg 25 mg, Oral, ONCE, 1 dose, On Tue06/24/21 at 1100, Routine heparin (pf) (porcine) (100 units/mL) Given 06/24/2021 2:[address] 500 Units flush 5 mL syringe 500 Units 500 Units, Intravenous, ONCE PRN, Starting on Tue06/24/21 at 1030, Until Tue06/24/21 at 1739, Line Care, Refer to Intravenous (IV) Procedure: Accessing Implanted Vascular Access Devices (614) procedure and/or Intravenous (IV) Job Aid: Adult Flushing & Catheter Care (3981) job aid for additional information regarding guidelines and administration., Routine palonosetron (Aloxi) (0.05 mg/mL) injection Given 06/10 10:42 AM EST 0.25 mg 0.25 mg 0.25 mg, Intravenous, ONCE, 1 dose, On Tue06/24/21 at 1100, Administer over 30 seconds., Routine riTUXimab-pvvr (Ruxience) 700 mg in sodium New Bag 06/24 11:53 AM EST 700 mg chloride 0.9% 350 mL infusion (malignant indication) 700 mg, Intravenous, ONCE, 1 dose, On Tue06/24/21 at 1200, Administer Per Protocol., Patient is a candidate for rapid infusion riTUXimab? No, Comments (complete to provide additional information): OK to increase rate if prior dose tolerated sodium chloride 0.9 % (flush) (BD PosiFlush Given 06/24/2021 2:55 PM EST 20 mLs Normal Saline 0.9) flush 5-20 mL 5-20 mL, Intravenous, EVERY 1 MIN PRN, Starting on Tue06/24/21 at 1030, Until Tue06/24/21 at 1739, Line Care, Flush pertains to all indwelling lines. Flush per protocol found in the job aid using the link provided on this medication record. Refer to Intravenous (IV) Job Aid: Adult Flushing & Catheter Care (3820) job aid for additional information regarding guidelines and administration., Routine sodium chloride 0.9% infusion New Bag 06/24/2021 10:43 AM EST 150 mL/hr 150 mL/hr 150 mL/hr, Intravenous, CONTINUOUS, Starting on Tue06/24/21 at 1100, Until Tue06/24/21 at 1739 documented in this encounter
--- OUTSIDE RECORDS SUMMARY | 2022-05-21 01:02 | XMS_ITS | Encounter Summary ---
:1950 Author Organization [facility] [place] [address] Care Team Providers Name Role Phone Unavailable Primary Care Provider Unavailable Encounter Details Date Type Department Care Team Description 03/30/2021 Telephone Thoracic Surgery at [facility] Marry Acosta, [place] [phone] Social History Tobacco Use Types Packs/Day [...] Telephone Encounter - Marry Acosta RN - 03/30/2021 4:22 PM EDT Patient is S/P IR chest tube placement 03/20/2021 for Acute recurrent pleural effusion. Phoned patient to check in on her progress. 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 Reports that she is draining about 300mls at night and between 100- 200mls in the morning. She is aware that we are available if she needs anything. Drainage continues to be straw colored. Brian is doing well symptom gong, some discomfort with draining, but tollerable. I will plan to check in on her in weekly and she isaware to call with any issues. documented in this encounter Plan of Treatment Upcoming Encounters Date Type Specialty Care Team Description 06/16/2022 Office Visit Hematology and Oncology Jackie Dillon, BOOTH CLEANER [facility] HEMATOLOGY/[facility] DEPT. [place], [place] [address] (Wo rk) 06/16/2022 Infusion Hematology and Oncology documented as of this encounter Visit Diagnoses Not on filedocumented in this encounter
--- OUTSIDE RECORDS SUMMARY | 2022-05-21 01:02 | XMS_ITS | Encounter Summary ---
:1950 Author Organization [facility] [place] [address] Care Team Providers Name Role Phone Unavailable Primary Care Provider Unavailable Encounter Details Date Type Department Care Team Description 04/10/2021 Telephone Thoracic Surgery at [facility] Marry Acosta, [place] [phone] Social History Tobacco Use Types Packs/Day [...] Telephone Encounter - Marry Acosta RN - 04/10/2021 8:30 AM EDT Phone call from patient today stating that she is still draining about 500mls daily between two bottles AM and PM. She is doing very well overall, minimal amount of discomfort around the catheter site,skin integrity is good. She is not getting enough bottles from home health. She had to use her last one this morning and has none for tonight. Phone call the [facility] to discuss and I have also shipped overnight enough to get her through the weekend. Awaiting a call back from [facility]. documented in this encounter Plan of Treatment Upcoming Encounters Date Type Specialty Care Team Description 06/16/2022 Office Visit Hematology and Oncology Jackie Dillon, COREMAKING SUPERVISOR [facility] HEMATOLOGY/[facility] DEPT. [place], [place] [address] (Wo rk) 06/16/2022 Infusion Hematology and Oncology documented as of this encounter Visit Diagnoses Not on filedocumented in this encounter
--- OUTSIDE RECORDS SUMMARY | 2022-05-21 01:02 | XMS_ITS | Encounter Summary ---
:1950 Author Organization [facility] [place] [address] Care Team Providers Name Role Phone Unavailable Primary Care Provider Unavailable Encounter Details Date Type Department Care Team Description 03/25/2021 Office Visit Hematology/Oncology Bina Monique [address] [facility] MD Luis lymphoma of [address] nodes of multiple [place], [place] [id number] HEMATOLOGY/ONCOLOGY [phone] DEPT. [place], [place] [address] (Wo rk) Social History Tobacco [...] Sign Reading Time Taken Comments Blood Pressure 137/62 03/25/2021 3:10 PM EDT Pulse 74 03/25/2021 3:10 PM EDT Temperature 36.2 ??C (97.1 ??F) 03/25/2021 3:10 PM EDT Respiratory Rate 16 03/25/2021 3:10 PM EDT Oxygen Saturation 100% 03/25/2021 3:10 PM EDT Inhaled Oxygen Concentration - - Weight 83 kg (183 lb) 03/25/2021 3:10 PM EDT Height 160 cm (5' 2.99) 03/25/2021 3:10 PM EDT Body Mass Index 32.43 03/25/2021 3:10 PM EDT documented in this encounter Progress Notes Bina Monique MD - 03/25/2021 3:00 PM EDT Subjective: Patient ID: Brian Ibanez is a 70 y.o. female here for f/u of NHL Patient Active Problem List Diagnosis ??? Pleural effusion ??? 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 Biopsy at [place]. 09/06/19 LN Interpretation at [facility] Outside slide(s) labeled [id number], collection date 09/06/2019. Lymph node, supra clavicular [...] for restaging and BR followed by MR. 03/17/21 PET EXAMINATION: NM PET CT STANDARD SKULL BASE TO MID-THIGH COMPARISON: CT chest 02/12/2021, CT chest abdomen and pelvis 10/17/2020, and PET/CT 10/04/2019 HEAD/NECK: FDG avid adenopathy in the bilateral upper and lower cervical and supraclavicular regions and within the bilateral parotids, increased in size and number compared to prior PET/CT of 09/2019. [employer] lymph node within the highest FDG uptake in the left level 2 region measures 10 mm with SUV max of 18.7 (axial image 26). ?? CHEST: FDG avid adenopathy in the bilateral axillary and bilateral mediastinal and hilar regions, similar in size compared to CT chest of 10/17/2020. [employer] lymph node with the highest FDG uptake [...] size compared to prior CT of 10/17/2020. [employer] adenopathy in the highest FDG uptake in [...] uptake (SUV max greater than 12) with airport representative nodes detailed above, are highly suspicious for lymphoma transformation and would be amenable to CT-guided biopsy if clinically indicated. 4. Large right pleural effusion, unchanged compared to prior CT of 02/16/2021. ECHO [place] EF LDH normal 171 03/19/2021 BMBx Bone marrow aspirate, biopsy , peripheral smear : 1. ??Follicular lymphoma, by history. 2. ??Normocellular marrow (40%) with ?? maturing trilineage hematopoiesis and involved ??by paratrabecular lymphoid aggregates c/w ??F ?? ollicular lymphoma, involving 40% of the ??cellularity. ??Cytogenetics pending. See discussion. ??? Hypertension ??? Hypothyroidism ??? Hypercholesterolemia Patient prefers to be called: Brian Spouse/Partner: Other support: son, Skyler HPI She was diagnosed with follicular lymphoma during Covid and there was no indication for treatment so she has been followed with a watch and wait approach. This is a telephone encounter with Brian, to check in and be sure that her symptoms are controlled,and we have a plan in place. Brian states that she started feeling short of breath in the beginning of December which progressed slowly but by mid February, it progressed quite rapidly. She went to the emergency room and was found to have a pleural effusion. She underwent thoracentesis at [facility] which confirmed involvement with lymphoma. She had been under a watch and wait approach with her follicular lymphoma, but now will need treatment. She completed her staging and returns today for discussion of treatment. Last week she had Pleurx catheter placed by interventional radiology. Our hopes are that she can undergo treatment for her lymphoma, and have the Pleurx catheter discontinued in the near future. She states that she is having minimal pain from the Pleurx. She is draining about 250 to 300 cc twice a day. It is working well. No signs of infection or excessive pain. She is here to check and see where we are with her work-up, so that we can move ahead with treatment. She is accompanied by her son, Skyler. Achy back and quesy stomach. Losing weight b/c not eating. Not eating b/c of early satiety. Working. She reports that an echocardiogram was done by Dr. Joel in [place] over the summer as part ofher work-up for her effusion. COVID vaccination X 2. Booster vaccine planned for Tuesday03/20/21. Review of Systems Constitutional: Positive for fatigue. mild HENT: Negative. Eyes: Negative. Respiratory: See HPI Cardiovascular: Negative. Negative for chest pain, palpitations and leg swelling. Gastrointestinal: Negative. See HPI Genitourinary: Negative. Musculoskeletal: Negative. Left achilles as above Skin: Negative. Neurological: Negative. Negative for weakness and numbness. Hematological: Negative. Psychiatric/Behavioral: Negative. PHYSICAL EXAM BP 137/62 (Patient Position: Sitting) Pulse 74 Temp 36.2 ??C (97.1 ??F) (Temporal) Resp 16 Ht 160 cm (5' 2.99) Wt 83 kg (183 lb) SpO2 100% BMI 32.43 kg/m?? Body surface area is 1.92 meters squared. GENERAL: Brian Ibanez appears well and is in no acute distress. ENT: Oral pharynx clear. EYES: MTAT NECK: Supple without adenopathy. AXILLARY: no adenopathy OTHER LYMPH: no adenopathy CARDIAC: Regular rate and rhythm without S3,S4 or murmurs. LUNGS: Clear to auscultation./percussion ABDOMEN: Soft and non-tender without hepatosplenomegaly or masses. EXTREMITIES: No cyanosis, clubbing, edema or calf tenderness. SKIN: No bruises or petechiae. NEUROLOGICAL: Alert and oriented to person, place and time. MUSCULOSKELETAL: No spinal or chest wall tenderness. LABS: Results for BRIAN IBANEZ ( ) as of 03/17/2021 22:34 Ref. Range 03/13/2021 09:27 WBC Latest Ref Range: 4.0 - 9.5 x10(3)/mcL 4.2 RBC Latest Ref Range: 4.00 - 5.21 x10(6)/mcL 4.01 Hemoglobin Latest Ref Range: 11.7 - 15.5 gm/dL 12.1 Hematocrit Latest Ref Range: 35.7 - 45.8 % 36.2 MCV Latest Ref Range: 82.6 - 94.4 fL 90.3 MCH Latest Ref Range: 27.1 - 32.0 pg 30.2 MCHC Latest Ref Range: 31.7 - 35.0 gm/dL 33.4 RDWSD Latest Ref Range: 37.0 - 46.0 fL 44.5 RDWCV Latest Ref Range: 11.5 - 14.1 % 13.5 Platelets Latest Ref Range: 145 - 357 x10(3)/mcL 94 (L) MPV Latest Ref Range: 7.6 - 12.9 fL 9.9 nRBC % Auto Latest Units: % 0.0 nRBC Abs Auto Latest Ref Range: 0.000 - 0.000 x10(3)/mcL 0.000 Neutr Abs (ANC) Latest Ref Range: 1.70 - 6.10 x10(3)/mcL 2.51 Neutrophils % Latest Units: % 59.0 Immature Gran % Latest Units: % 0.00 Lymphocytes % Latest Units: % 30.4 Monocytes % Latest Units: % 7.5 Eosinophils % Latest Units: % 2.4 Basophils % Latest Units: % 0.7 Lorraine Gran Abs Latest Ref Range: 0.00 - 0.04 x10(3)/mcL 0.00 Lymphocytes Abs Latest Ref Range: 0.9 - 3.2 x10(3)/mcL 1.3 Monocyte Abs Latest Ref Range: 0.3 - 0.9 x10(3)/mcL 0.3 Eosinophils Abs Latest Ref Range: 0.0 - 0.4 x10(3)/mcL 0.1 Basophils Abs Latest Ref Range: 0.0 - 0.1 x10(3)/mcL 0.0 Sodium Latest Ref Range: 135 - 145 mmol/L 142 Potassium Latest Ref Range: 3.5 - 5.0 mmol/L 4.3 Chloride Latest Ref Range: 98 - 107 mmol/L 106 CO2 Latest Ref Range: 22 - 31 mmol/L 27 Anion Gap Latest Ref Range: 5 - 15 mmol/L 9 BUN Latest Ref Range: 8 - 18 mg/dL 19 (H) Creatinine Latest Ref Range: 0.70 - 1.20 mg/dL 0.97 Estimated GFR Latest Ref Range: >=60 mL/min/1.73 m?? 58 (L) Calcium Latest Ref Range: 8.5 - 10.5 mg/dL 9.4 Uric Acid Latest Ref Range: 2.5 - 6.5 mg/dL 6.4 Glucose Lvl Latest Ref Range: 65 - 199 mg/dL 105 Total Protein Latest Ref Range: 6.1 - 8.0 gm/dL 6.2 Albumin Latest Ref Range: 3.2 - 5.2 gm/dL 4.2 Total Bilirubin Latest Ref Range: 0.2 - 1.3 mg/dL 0.6 Alk Phos Latest Ref Range: 35 - 105 unit/L 95 AST Latest Ref Range: 0 - 30 unit/L 22 ALT Latest Ref Range: 0 - 30 unit/L 16 LDH Latest Ref Range: 110 - 220 unit/L 177 Total Prot Elec Latest Ref Range: 6.1 - 8.0 gm/dL 5.9 (L) Albumin Elect Latest Ref Range: 3.60 - 6.00 gm/dL 4.02 Alpha1-Globulin Latest Ref Range: 0.10 - 0.30 gm/dL 0.19 Alpha2-Globulin Latest Ref Range: 0.40 - 0.90 gm/dL 0.71 Beta Globulin Latest Ref Range: 0.50 - 1.00 gm/dL 0.69 Gamma Globulin Latest Ref Range: 0.50 - 1.30 gm/dL 0.28 (L) M1 Band Latest Ref Range: None Detected Comments Below SPEP Comments Unknown See Note [place] Free Light Chain Latest Ref Range: 0.72 - 2.75 mg/dL 0.69 (L) Lambda Free Light Chain Latest Ref Range: 0.57 - 2.15 mg/dL 0.76 [place] Lambda FLC Ratio Latest Ref Range: 0.4000 - 2.5800 0.9079 IgG Latest Ref Range: 700 - 1,600 mg/dL 376 (L) IgA Latest Ref Range: 70 - 400 mg/dL 29 (L) IgM Latest Ref Range: 40 - 230 mg/dL 15 (L) HIV-1/2 Ab and Ag Latest Ref Range: Negative Negative HIV Comment Unknown Low Risk of HIV Infection HepB Surface Ab Quant Latest Units: IU/L 3.8 HepB Surface Ab Unknown Negative HepB Surface Ag Latest Ref Range: Negative Negative Hep B Core Ab Latest Ref Range: Negative Negative Hepatitis C Ab Latest Ref Range: Negative Negative PATHOLOGY: 02/24/21 DIAGNOSIS Lymphoma cells present - compatible with low grade follicular lymphoma 03/19/2021 BMBx Bone marrow aspirate, biopsy , peripheral smear : 1. ??Follicular lymphoma, by history. 2. ??Normocellular marrow (40%) with ?? maturing trilineage hematopoiesis and involved ??by paratrabecular lymphoid aggregates c/w ??F ?? ollicular lymphoma, involving 40% of the ??cellularity. ??Cytogenetics pending. See discussion. RADIOLOGY: 03/17/21 PET EXAMINATION: NM PET CT STANDARD SKULL BASE TO MID-THIGH ?? CLINICAL HISTORY: Non-Hodgkin lymphoma, staging Follicular lymphoma staging. Patient has been watching weight, but now with new malignant pleural effusion. Compared to outside CT ?? COMPARISON: CT chest 02/12/2021, CT chest abdomen and pelvis 10/17/2020, and PET/CT 10/04/2019 ?? FINDINGS: ?? HEAD/NECK: FDG avid adenopathy in the bilateral upper and lower cervical and supraclavicular regions and within the bilateral parotids, increased in size and number compared to prior PET/CT of 09/2019. [employer] lymph node within the highest FDG uptake in the left level 2 region measures 10 mm with SUV max of 18.7 (axial image 26). ?? CHEST: FDG avid adenopathy in the bilateral axillary and bilateral mediastinal and hilar regions, similar in size compared to CT chest of 10/17/2020. [employer] lymph node with the highest FDG uptake [...] size compared to prior CT of 10/17/2020. [employer] adenopathy in the highest FDG uptake in [...] uptake (SUV max greater than 12) with airport representative nodes detailed above, are highly suspicious for lymphoma transformation and would be amenable to CT-guided biopsy if clinically indicated. 4. Large right pleural effusion, unchanged compared to prior CT of 02/16/2021. ??10/17/20 EXAMINATION: CT CHEST ABDOMEN PELVIS W CONTRAST (GENERIC) ?? CLINICAL HISTORY: Hematologic malignancy, surveillance Non-Hodgkin's lymphoma ? COMPARISON: 02/11/2020 ? Chest: Lungs and large airways: No suspicious pulmonary nodules. Trace nonspecific ill-defined small focus of opacification in the inferolateral aspect of the RIGHT middle lobe. Pleura: No effusion. Heart/vasculature: No pericardial effusion. Lymph nodes: Bilateral axillary adenopathy, as noted previously,. Some of the lymph nodes have slightly decreased in caliber. None have increased. Mediastinum and jared: Slight decrease in the RIGHT hilar adenopathy. Grossly stable subcarinal, prevascular adenopathy, and mediastinal adenopathy. ?? Abdomen/pelvis: Liver: Normal size and attenuation without lesions. Bile ducts: Nondilated. Gallbladder: No calcified gallstones. Normal caliber wall. Pancreas: Normal attenuation without ductal dilatation. Spleen: Normal. Adrenals: Normal. Kidneys: New parapelvic fat stranding RIGHT kidney. The fat stranding extends along the course of the RIGHT ureter to the level of the RIGHT hemipelvis, where it becomes enmeshed with adenopathy. On the LEFT, similarly peripelvic fat stranding and fat stranding surrounding the LEFT ureter to the level of the mid pelvis where it becomes enmeshed in adenopathy. 2 stable LEFT renal cysts Urinary Bladder: Decreased bladder volume with increased pelvic sidewall adenopathy ?? Vasculature: No aneurysm. Lymph Nodes: Increased para-aortic and bilateral para iliac adenopathy. Grossly stable bilateral inguinal adenopathy.. The largest lymph node is along the LEFT pelvic sidewall, measuring approximately 3.4 x 6.4 cm. Bowel: Nondilated, no wall thickening. Peritoneum and mesentery: Presacral fat stranding, new since the previous study Abdominal wall: Normal. ?? Reproductive organs: Normal. Osseous structures: No suspicious lesions. ?? IMPRESSION ?? 1. Diffuse adenopathy, in the chest, abdomen, pelvis, as described. Some of the lymph nodes in the axillary have lightly decreased. However, other lymph nodes in the pelvis have increased. 2. New bilateral renal pelvic fat stranding and bilateral periureteral fat stranding. The mid to distal ureters become enmeshed in the adenopathy of the Pelvis. Assessment and Plan: Brian Ibanez?is a very pleasant 70 y.o. woman with follicular lymphoma grade 1/2 and grade 3A, diagnosed in August of 2019. ?Her FLIPI ??Score is 3 ??(age, stage, LN sites). She has had no treatment to date. Her October 2020 CT scan showed mixed results which is not unusual for follicular NHL. The largest mass was a 6.4 cm para-aortic lymph node conglomerate. No pleural effusion at that time. At that time our plan was continued watch and wait, especially in light of the Covid epidemic. In the summer 2020 she presented with dyspnea and was found to have pleural effusion. Thoracentesis was completed and evaluation of the pleural fluid confirmed lymphoma. She is presently in the middle of restaging. Her PET scan was reviewed. She has some small lymph nodes with an SUV up to 14, which should be biopsied to rule out transformation. Radiologist feels the presacral lymph node is probably most amenable to biopsy with the highest SUV value. She has a bone marrow biopsy scheduled for tomorrow. I also referred her to our thoracic surgeons who will be seeing her on Tuesday. She will need repeat pleural fluid sent for LLS, and flow cytometry. Today I reached out to our radiologist to confirm best place for biopsy, and to try to expedite the biopsy. It may be that one of the cervical lymph nodes is more amenable, and has similar if not greater SUV value, although quite small. Continuing to work with him to expedite the biopsy for the patient. She reports that a echocardiogram was done this summer in [place] with Dr. Joel. We will obtain those results. She has a Mediport in place. I recommend bendamustine and rituximab x6 cycles. 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 Given the risks of Covid while undergoing chemotherapy, I would prefer that she not work and she is in agreement with that. ??If there is evidence of transformation on CT-guided biopsy, then she would need to get R-CHOP chemotherapy. At the present time Brian is scheduled for PTI chemotherapy teaching visit with Venus Mendieta on 04/06. We will schedule either R-CHOP chemotherapy or bendamustine with rituximab to follow. We discussed some of the basics of each of these today. As well as the length of treatment. We reviewed that her bone marrow biopsy shows 40% involvement with follicular lymphoma. This is not unexpected. We expect this to significantly improve if not completely resolve with treatment. Cardiac - Dr Hoang. Concern for heart failure. Work-up was negative, ultimately she was found to have normal cardiac function. Effusion was secondary to her lymphoma. Will obtain echocardiogram results from the summer 2020 COVID vaccination X 2. Booster vaccination planned for 03/20/2021 Plan: ?? CT-guided biopsy of presacral or cervical PET avid lymph node at [facility] ?? Covid booster recommended, patient is planning for 03/19/2021 ?? Return to clinic after all of the above for PTI chemotherapy teaching with Venus and the start of treatment documented in this encounter Plan of Treatment Upcoming Encounters Date Type Specialty Care Team Description 06/16/2022 Office Visit Hematology and Oncology Jackie Dillon, [employer] [facility] HEMATOLOGY/[facility] DEPT. [place], [place] [address] (Wo rk) 06/16/2022 Infusion Hematology and Oncology documented as of this encounter Visit Diagnoses Diagnosis 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 documented in this encounter
--- OUTSIDE RECORDS SUMMARY | 2022-05-21 01:02 | XMS_ITS | Encounter Summary ---
:1950 Author Organization [facility] [place] [address] Care Team Providers Name Role Phone Unavailable Primary Care Provider Unavailable Reason for Visit Reason Comments IV Access Cycle 3, Day 1 deferred due to a possible infection, port flush Treatment/Therapy Plan Authorization (Routine) - Closed Specialty [...] & ALOXI & ANCA Smith MD Infusion [address] HEMATOLOGY/ONCOLOGY [id number] [place] [address] Referral ID Status Reason Start Date Expiration Date Visits Requ ested Visits Authorized [id number] Closed 04/22/2021 12/18/2021 18 18 Encounter Details Date Type Department Care Team Description 06/17/2021 Infusion Hematology Oncology at [facility] rico 2 follicular lymphoma [facility] of lymph nodes of [address] [phone] Social History Tobacco Use Types Packs/Day Years [...] encounter Progress Notes Niru Rasheed RN - 06/17/2021 10:30 AM EST INFUSION THERAPY ADMINISTRATION NOTES Seen by provider. Cycle 3, Day 1 deferred due to a possible infection. TIME TREATMENT STARTED: 1100 TIME TREATMENT ENDED: 1105 DIAGNOSIS: Follicular Lymphoma REASON FOR VISIT: MEDIPORT FLUSH ONLY IV ACCESS: Mediport GAUGE: BLOOD RETURN: yes ANY S/S OF INFECTION/EXTRAVASATIONS: no signs of IV complications observed IV FLUSHED WITH: 20cc NS and 500 units Heparin IV DISCONTINUED: yes ASSESSMENT: Patient tolerated treatment well. PLAN: Return to clinic per routine. documented in this encounter Plan of Treatment Upcoming Encounters Date Type Specialty Care Team Description 06/16/2022 Office Visit Hematology and Oncology Jackie Dillon, SALES ACCOUNT DIRECTOR [facility] HEMATOLOGY/[facility] DEPT. [place], [place] [address] (Wo rk) 06/16/2022 Infusion Hematology and Oncology documented as of this encounter Visit Diagnoses Diagnosis 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 documented in this encounter
--- OUTSIDE RECORDS SUMMARY | 2022-05-21 01:02 | XMS_ITS | Encounter Summary ---
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 [address] Referral ID Status Reason Start Date Expiration Date Visits Requ ested Visits Authorized [id number] Closed 04/22/2021 12/18/2021 18 18 Encounter Details Date Type Department Care Team Description 04/23/2021 Infusion Hematology Oncology at [facility] rico 2 follicular lymphoma [facility] of lymph nodes of multiple [address] [place] [phone] Social History Tobacco Use Types Packs/Day Years [...] Sign Reading Time Taken Comments Blood Pressure 145/60 04/23/2021 9:02 AM EDT Pulse 88 04/23/2021 9:02 AM EDT Temperature 36.1 ??C (96.9 ??F) 04/23/2021 9:02 AM EDT Respiratory Rate 16 04/23/2021 9:02 AM EDT Oxygen Saturation 100% 04/23/2021 9:02 AM EDT Inhaled Oxygen Concentration - - Weight 89 kg (196 lb 3.2 oz) 04/23/2021 9:02 AM EDT Height 160 cm (5' 3) 04/23/2021 9:02 AM EDT Body Mass Index 34.76 04/23/2021 9:02 AM EDT documented in this encounter Progress Notes Christy Galloway RN - 04/23/2021 9:00 AM EDT INFUSION THERAPY ADMINISTRATION NOTES DIAGNOSIS: follicular lymphoma CYCLE #:1, Day 1 REASON FOR VISIT: Rituximab, Bendamustine, Onpro SUBJECTIVE Brian Bliss offers no complaints. OBJECTIVE LAB DATA: WBC 3.85, RBC 3.49, Plt 170, ANC 2.11, BUN18, Cr1.1 IV ACCESS: Mediport Pre administration: Chemotherapy orders independently verified for drug name, route, and dosage per patient's height, weight and BSA by Christy Galloway, MARI & onsite pharmacist. REACTIONS (DESCRIPTION, TIME, INTERVENTION AND EFFECTIVENESS) none ASSESSMENT Brian Bliss was awake, alert and tolerated treatment well. Neulasta Onpro placed on right arm, patient aware of when to remove tomorrow. PLAN Return to clinic per routine. documented in this encounter Plan of Treatment Upcoming Encounters Date Type Specialty Care Team Description 06/16/2022 Office Visit Hematology and Oncology Jackie Dillon, OPEN HEARTH HELPER [facility] HEMATOLOGY/[facility]COL [facility] DEPT. [place], [place] [address] (Wo rk) 06/16/2022 Infusion Hematology and Oncology documented as of this encounter Visit Diagnoses Diagnosis 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 documented in this encounter Administered Medications Inactive Administered Medications - up to 3 most recent administrations Medication Order MAR Action Action Date Dose Rate Site acetaminophen (Tylenol) tablet 650 Given 04/23/2021 9:17 AM EDT 650 mg mg 650 mg, Oral, ONCE, 1 dose, On Yocasta 04/23/21 at 0830, Administer prior to riTUXimab., Routine bendamustine (Bendeka) 173 mg in New Bag 04/23/2021 1:56 PM ED T 173 mg 341.5 mL/hr sodium chloride 0.9% 56.92 mL infusion 173 mg (rounded from 172.8 mg = 90 mg/m2/dose ? 1.92 m2 Treatment Plan BSA from Recorded weight), Intravenous, ONCE, 1 dose, On Yocasta 04/23/21 at 1100, Administer over 10 Minutes, The resulting final concentration of bendamustine in the infusion bag should be between 1.85 - 5.6 mg/mL. Warning Vesicant/Irritant Medication , This agent is restricted to outpatient use. Is this drug being given as an outpatient? Yes dexamethasone (Decadron) injection 10 mg Given 04/23/2021 9:27 AM EDT 10 mg 10 mg, Intravenous, ONCE, 1 dose, On Yocasta 04/23/21 at 0830, Administer prior to riTUXimab diphenhydrAMINE (Benadryl) (50 mg/mL) Given 04/23/2021 9:27 AM E DT 50 mg injection 50 mg 50 mg, Intravenous, ONCE, 1 dose, On Yocasta 04/23/21 at 0830, Administer prior to riTUXimab, Routine heparin (pf) (porcine) (100 units/mL) Given 04/23/2021 2:26 PM E DT 500 Units flush 5 mL syringe 500 Units 500 Units, Intravenous, ONCE PRN, Starting on Yocasta 04/23/21 at 0841, Until Yocasta 04/23/21 at 1704, Line Care, Refer to Intravenous (IV) Procedure: Accessing Implanted Vascular Access Devices (654) procedure and/or Intravenous (IV) Job Aid: Adult Flushing & Catheter Care (0715) job aid for additional information regarding guidelines and administration., Routine pegfilgrastim (Neulasta Onpro) (6 mg/0.6 mL) Given 04/23/2021 2: 14 PM EDT 6 mg injection kit 6 mg 6 mg, Subcutaneous, ONCE, 1 dose, On Yocasta 04/23/21 at 1100, Allow the prefilled syringe co-packaged with the on-body injector to reach room temperature at least 30 minutes prior to administration., Routine, This agent is restricted to outpatient use. Is this drug being given as an outpatient? Yes riTUXimab-pvvr (Ruxience) 700 mg in sodium New Bag 04/23 10:19 AM EDT 700 mg chloride 0.9% 350 mL infusion (malignant indication) 700 mg, Intravenous, ONCE, 1 dose, On Yocasta 04/23/21 at 0930, Administer Per Protocol., Patient is a candidate for rapid infusion riTUXimab? No, Comments (complete to provide additional information): OK to increase rate if prior dose tolerated sodium chloride 0.9 % (flush) (BD PosiFlush Given 04/23/2021 2:26 PM EDT 20 mLs Normal Saline 0.9) flush 5-20 mL 5-20 mL, Intravenous, EVERY 1 MIN PRN, Starting on Tue04/22/21 at 1614, Until Yocasta 04/23/21 at 1613, Line Care, Flush pertains to all indwelling lines. Flush per protocol found in the job aid using the link provided on this medication record. Refer to Intravenous (IV) Job Aid: Adult Flushing & Catheter Care (8589) job aid for additional information regarding guidelines and administration., Routine sodium chloride 0.9% infusion New Bag 04/23/2021 9:27 AM EDT 150 mL/hr 150 mL/hr 150 mL/hr, Intravenous, CONTINUOUS, Starting on Yocasta 04/23/21 at 0830, Until Yocasta 04/23/21 at 1704 documented in this encounter
--- OUTSIDE RECORDS SUMMARY | 2022-05-21 01:02 | XMS_ITS | Encounter Summary ---
:1950 Author Organization [place] [address] Care Team Providers Name Role Phone None Primary Care Provider Unavailable Reason for Visit Reason Comments Chemotherapy Cycle 4, Day 2 Treatment/Therapy Plan Authorization (Routine) - Closed Specialty [...] & ALOXI & ANCA Smith MD Infusion [address] HEMATOLOGY/ONCOLOGY [id number] [place] [address] Referral ID Status Reason Start Date Expiration Date Visits Requ ested Visits Authorized [id number] Closed 04/22/2021 12/18/2021 18 18 Encounter Details Date Type Department Care Team Description 07/23/2021 Infusion Hematology Oncology at [facility] rico 2 follicular lymphoma [facility] of lymph nodes of [address] [phone] Social History Tobacco Use [...] Sign Reading Time Taken Comments Blood Pressure 148/64 07/23/2021 10:09 AM EST Pulse 83 07/23/2021 10:09 AM EST Temperature 36.3 ??C (97.3 ??F) 07/23/2021 10:09 AM EST Respiratory Rate 16 07/23/2021 10:09 AM EST Oxygen Saturation 100% 07/23/2021 10:09 AM EST Inhaled Oxygen Concentration - - Weight 84.1 kg (185 lb 6.4 oz) 07/23/2021 10:09 AM EST Height 160 cm (5' 3) 07/23/2021 10:09 AM EST Body Mass Index 32.84 07/23/2021 10:09 AM EST documented in this encounter Progress Notes Gilma Beck RN - 07/23/2021 10:00 AM EST INFUSION THERAPY ADMINISTRATION NOTES DIAGNOSIS: follicular lymphoma CYCLE #4: Day 2 REASON FOR VISIT: Bendamustine, Neulasta OnPRO SUBJECTIVE Brian Bliss offers no complaints. OBJECTIVE LAB DATA: Done 07/22/21 at [facility] and adequate for treatment. IV ACCESS: Mediport Pre administration: Chemotherapy orders independently verified for drug name, route, and dosage per patient's height, weight and BSA by Gilma Beck, MARI & onsite pharmacist. REACTIONS (DESCRIPTION, TIME, INTERVENTION AND EFFECTIVENESS) none ASSESSMENT Brian Carlos Izaiah was awake, alert and tolerated treatment well. Neulasta Onpro placed on left arm, patient aware of when to remove tomorrow. PLAN Return to clinic per routine. documented in this encounter Plan of Treatment Upcoming Encounters Date Type Specialty Care Team Description 06/16/2022 Office Visit Hematology and Oncology Jackie Dillon, LOOM INSPECTOR [facility] HEMATOLOGY/[facility] DEPT. [place], [place] [address] (Wo rk) 06/16/2022 Infusion Hematology and Oncology documented as of this encounter Visit Diagnoses Diagnosis 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 documented in this encounter Administered Medications Inactive Administered Medications - up to 3 most recent administrations Medication Order MAR Action Action Date Dose Rate Site bendamustine (Bendeka) 173 mg New Bag 07/23/2021 10:34 AM 173 mg 341.5 mL/hr in sodium chloride 0.9% 56.92 EST mL infusion 173 mg (rounded from 172.8 mg = 90 mg/m2/dose ? 1.92 m2 Treatment Plan BSA from Recorded weight), Intravenous, ONCE, 1 dose, On Yocasta 07/23/21 at 1100, Administer over 10 Minutes, The resulting final concentration of bendamustine in the infusion bag should be between 1.85 - 5.6 mg/mL. Warning Vesicant/Irritant Medication , This agent is restricted to outpatient use. Is this drug being given as an outpatient? Yes dexamethasone (Decadron) tablet 10 mg Given 07/23/2021 10:19 AM EST 10 mg 10 mg, Oral, ONCE, 1 dose, On Tue07/23/21 at 1000, Administer prior to chemotherapy, Routine heparin (pf) (porcine) (100 units/mL) Given 07/23/2021 10:49 AM EST 500 Units flush 5 mL syringe 500 Units 500 Units, Intravenous, ONCE PRN, Starting on Tue07/22/21 at 1626, Until Tue07/23/21 at 1317, Line Care, Refer to Intravenous (IV) Procedure: Accessing Implanted Vascular Access Devices (184) procedure and/or Intravenous (IV) Job Aid: Adult Flushing & Catheter Care (7081) job aid for additional information regarding guidelines and administration., Routine pegfilgrastim (Neulasta Onpro) (6 Given 07/23/2021 10:38 AM EST 6 mg Left Arm mg/0.6 mL) injection kit 6 mg 6 mg, Subcutaneous, ONCE, 1 dose, On Yocasta 07/23/21 at 1130, Allow the prefilled syringe co-packaged with the on-body injector to reach room temperature at least 30 minutes prior to administration., Routine, This agent is restricted to outpatient use. Is this drug being given as an outpatient? Yes sodium chloride 0.9 % (flush) (BD PosiFlush Given 07/11 10:49 AM EST 20 mLs Normal Saline 0.9) flush 5-20 mL 5-20 mL, Intravenous, EVERY 1 MIN PRN, Starting on Tue07/22/21 at 1626, Until Yocasta 07/23/21 at 1317, Line Care, Flush pertains to all indwelling lines. Flush per protocol found in the job aid using the link provided on this medication record. Refer to Intravenous (IV) Job Aid: Adult Flushing & Catheter Care (7592) job aid for additional information regarding guidelines and administration., Routine documented in this encounter Care Teams Heel Boom Operator Relationship Specialty Start Date End Date None PCP - General 07/07/21 10/18/21 None documented as of this encounter
--- OUTSIDE RECORDS SUMMARY | 2022-05-21 01:02 | XMS_ITS | Encounter Summary ---
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 [address] Referral ID Status Reason Start Date Expiration Date Visits Requ ested Visits Authorized [id number] Closed 04/22/2021 12/18/2021 18 18 Encounter Details Date Type Department Care Team Description 05/20/2021 Infusion Hematology Oncology at [facility] rico 2 follicular lymphoma [facility] of lymph nodes of [address] [phone] Social History Tobacco Use [...] encounter Progress Notes Eva Brown RN - 05/20/2021 10:00 AM EST INFUSION THERAPY ADMINISTRATION NOTES DIAGNOSIS: follicular lymphoma CYCLE #:1, Day 1 REASON FOR VISIT: Rituximab, Bendamustine SUBJECTIVE Brian Gonzalez Izaiah offers no complaints. OBJECTIVE LAB DATA: WBC 3.73, hg/hct 9.5/28 Plt 153, ANC 2.14, BUN 23, Cr 0.8 IV ACCESS: Mediport accessed for labs at OSH, brisk blood return noted. Pre administration: Chemotherapy orders independently verified for drug name, route, and dosage per patient's height, weight and BSA by EVA BROWN, MARI & onsite pharmacist. REACTIONS (DESCRIPTION, TIME, INTERVENTION AND EFFECTIVENESS) none Second time Rituxan rate- no issues. ASSESSMENT Brian Bliss was awake, alert and tolerated treatment well. Port flushed with 20ml of NS and 500 units of heparin and left accessed for tomorrow PLAN Return to clinic per routine. documented in this encounter Plan of Treatment Upcoming Encounters Date Type Specialty Care Team Description 06/16/2022 Office Visit Hematology and Oncology Jackie Dillon, WIN[employer] CELL[employer] [facility] HEMATOLOGY/[facility]COL [facility] DEPT. [place], [place] [address] (Wo rk) 06/16/2022 Infusion Hematology and Oncology documented as of this encounter Visit Diagnoses Diagnosis 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 documented in this encounter Administered Medications Inactive Administered Medications - up to 3 most recent administrations Medication Order MAR Action Action Date Dose Rate Site acetaminophen (Tylenol) tablet Given 05/20/2021 10:08 AM EST 650 mg 650 mg 650 mg, Oral, ONCE, 1 dose, On Tue05/20/21 at 1015, Administer prior to riTUXimab., Routine bendamustine (Bendeka) 173 mg in New Bag 05/20/2021 1:40 PM ES T 173 mg 341.5 mL/hr sodium chloride 0.9% 56.92 mL infusion 173 mg (rounded from 172.8 mg = 90 mg/m2/dose ? 1.92 m2 Treatment Plan BSA from Recorded weight), Intravenous, ONCE, 1 dose, On Tue05/20/21 at 1115, Administer over 10 Minutes, The resulting final concentration of bendamustine in the infusion bag should be between 1.85 - 5.6 mg/mL. Warning Vesicant/Irritant Medication , This agent is restricted to outpatient use. Is this drug being given as an outpatient? Yes dexamethasone (Decadron) injection 10 mg Given 05/20/2021 10:09 AM EST 10 mg 10 mg, Intravenous, ONCE, 1 dose, On Tue05/20/21 at 1015, Administer prior to riTUXimab diphenhydrAMINE (Benadryl) capsule 25 mg Given 05/20/2021 10:08 AM EST 25 mg 25 mg, Oral, ONCE, 1 dose, On Tue05/20/21 at 1015, Routine heparin (pf) (porcine) (100 units/mL) Given 05/20/2021 1:[address] 500 Units flush 5 mL syringe 500 Units 500 Units, Intravenous, ONCE PRN, Starting on Tue05/20/21 at 0948, Until Tue05/20/21 at 1619, Line Care, Refer to Intravenous (IV) Procedure: Accessing Implanted Vascular Access Devices (474) procedure and/or Intravenous (IV) Job Aid: Adult Flushing & Catheter Care (9678) job aid for additional information regarding guidelines and administration., Routine palonosetron (Aloxi) (0.05 mg/mL) injection Given 05/11 10:09 AM EST 0.25 mg 0.25 mg 0.25 mg, Intravenous, ONCE, 1 dose, On Tue05/20/21 at 1015, Administer over 30 seconds., Routine riTUXimab-pvvr (Ruxience) 700 mg in sodium New Bag 05/20 10:58 AM EST 700 mg chloride 0.9% 350 mL infusion (malignant indication) 700 mg, Intravenous, ONCE, 1 dose, On Tue05/20/21 at 1115, Administer Per Protocol., Patient is a candidate for rapid infusion riTUXimab? No, Comments (complete to provide additional information): OK to increase rate if prior dose tolerated sodium chloride 0.9 % (flush) (BD PosiFlush Given 05/20/2021 1:59 PM EST 20 mLs Normal Saline 0.9) flush 5-20 mL 5-20 mL, Intravenous, EVERY 1 MIN PRN, Starting on Tue05/20/21 at 0948, Until Tue05/20/21 at 1619, Line Care, Flush pertains to all indwelling lines. Flush per protocol found in the job aid using the link provided on this medication record. Refer to Intravenous (IV) Job Aid: Adult Flushing & Catheter Care (4017) job aid for additional information regarding guidelines and administration., Routine sodium chloride 0.9% infusion New Bag 05/20/2021 10:12 AM EST 150 mL/hr 150 mL/hr 150 mL/hr, Intravenous, CONTINUOUS, Starting on Tue05/20/21 at 1015, Until Tue05/20/21 at 1619 documented in this encounter
--- OUTSIDE RECORDS SUMMARY | 2022-05-21 01:02 | XMS_ITS | Encounter Summary ---
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 Rad Ct Scan Procedures CT Chest w Contrast [facility] [place] [address] [place] [address] Referral ID Status Reason Start Date Expiration Date Visits V isits Requested Authorized [id number] Closed Specialty 07/07/2021 10/05/2021 1 1 Service Requested Reason for Visit Reason Comments Effusion Encounter Details Date Type Department Care Team Description 07/07/2021 Office Visit Thoracic Surgery at Nicole Collier Grad e 2 follicular lymphoma of lymph nodes of multiple regions; [facility] Pleural effusion, malignant [facility] [place], [place] THORACIC SURGERY [address] [place] [address] [phone] Social History Tobacco Use Types Packs/Day Years [...] Sign Reading Time Taken Comments Blood Pressure 151/73 07/07/2021 10:55 AM EST Pulse 78 07/07/2021 10:55 AM EST Temperature 36.2 ??C (97.2 ??F) 07/07/2021 10:55 AM EST Respiratory Rate 16 07/07/2021 10:55 AM EST Oxygen Saturation 97% 07/07/2021 10:55 AM EST Inhaled Oxygen Concentration - - Weight 83.1 kg (183 lb 3.2 oz) 07/07/2021 10:55 AM EST Height 157.5 cm (5' 2) 07/07/2021 10:55 AM EST Body Mass Index 33.51 07/07/2021 10:55 AM EST documented in this encounter Patient Instructions Patient InstructionsWillAlex spring RN - 07/07/2021 10:45 AM EST Thank you for visiting Dr. Collier in clinic 07/07/21 Dr. Collier has stated that you are now on an as needed basis with Thoracic Surgery. Please call Thoracic surgery at with any questions or concerns. documented in this encounter Progress Notes Nicole Collier MD - 07/07/2021 10:45 AM EST Thoracic Surgery Attending Outpatient Follow Up Note Nicole Collier MD [place] [id number] FAX: Diagnosis: Malignant pleural effusion, Lymphoma Procedure (03/20/21): IR Right pleurX catheter placement Pathology (02/24/21): Right pleural fluid: Lymphoma cells present - compatible with low grade follicular lymphoma Complications: PleurX catheter site infection, treated with Augmentin Treatment: Tx per med onc, continued pleurx drainage drainage HPI: Brian Bliss is a 71 y.o. female who is s/p IR Right pleurX catheter placement on 03/20/21 for malignant pleural effusion. She presented to hem/onc on 06/17/21 for cycle 3 of Rituxan/Bendamustine. This was held due to concern for a pleurX catheter site infection and she was started on a 14 day course of Augmentin, completed on 07/01/21. She was last seen by Thoracic Surgery on 03/20/21. She presents today in follow up and reports pain at the insertion site of the pleurx catheter. She has been draining daily and drained 150cc on 06/28 and since then it has been scant. She reports the drainage has not changed and remains yellow, thin and slightly cloudy. She denies f/c/n/v/SOB/CP. Medications: Current Outpatient Medications on File Prior to Visit Medication Sig Dispense Refill ??? ibuprofen (Motrin) 400 mg Tablet Take [...] by mouth daily. ??? cholecalciferol, Vitamin D3, (Vitamin D-3) 50 mcg (2,000 unit) Tablet Take 50 Units by mouth daily. ??? prochlorperazine (Compazine) 10 mg Tablet Take 1 tablet by mouth every 6 hours as needed for Nausea. (Patient not taking: Reported on 05/06/2021) 30 tablet 3 No current facility-administered medications on file prior to visit. Physical Exam: BP 151/73 (Patient Position: Sitting) Pulse 78 Temp 36.2 ??C (97.2 ??F) (Temporal) Resp 16 Ht 157.5 cm (5' 2) Wt 83.1 kg (183 lb 3.2 oz) SpO2 97% BMI 33.51 kg/m?? General Appearance: Alert, cooperative, no distress, appears stated age Nk: Supple, symmetrical, trachea midline Lungs: Clear to auscultation bilaterally, respirations unlabored, no wheezes, crackles or ronchi. Abdomen: Soft, non-tender, bowel sounds active all four quadrants, no masses, no organomegaly Extremities: Extremities normal, atraumatic, no cyanosis or edema Wound/Incision: Right pleurX catheter site with small amount of fibrinous exudate, no swelling, redness, min tenderness, no drainage, no erythema suggestive of infection Assessment: Brian Bliss is a 71 y.o. female s/p IR Right sided pleurX catheter placement for malignant pleural effusion d/t follicular lymphoma. Plan: 1. Recommend bacitracin BID to catheter site 2. Obtain CT Chest to evaluate pleural effusion 3. Follow up with Hem/Onc as scheduled 4. Call with any questions or concerns Magali Kemp, PUBLIC ADDRESS ANNOUNCER 07/07/2021 Thoracic Surgery [facility] I have seen the patient and reviewed the PA/resident's above history and I agree with the details aswritten. The assessment and plan were formulated in discussion with me and I agree with them as documented. Assessment: Brian Bliss is a 71 y.o. female s/p IR Right sided pleurX catheter placement for malignant pleural effusion d/t follicular lymphoma. This may have been a pleurx local infection that has resolved with oral abx. Plan: 1. Recommend bacitracin BID to catheter site and clean it regularly. I do not think that the catheter is infected at this point. 2. Obtain CT Chest to evaluate pleural effusion. If resolved and continues to have low output from the catheter, we can remove it in the next week. 3. Follow up with Hem/Onc as scheduled. OK to start back on her chemotherapy. 4. Otherwise she will follow up with Thoracic on a PRN basis. 5. Call with any questions or concerns NICOLE COLLIER MD Addendum: CT Chest (07/07/2021): 1. No pulmonary airspace consolidation, nodule, or new metastatic disease. 2. Resolved right pleural effusion. 3. Decreased size of mediastinal and axillary lymph nodes. Patient's CT Chest was reviewed with Dr Collier and demonstrated resolution of the Right pleural effusion. Her pleurX catheter was removed in clinic today and a post pull CXR was obtained noting a smallapical penumothorax. The patient was given instruction to monitor closely for any symptoms of SOB, difficulty breathing, cough, chest pain, racing heart, subcutaneous emphysema, and to call immediately and or present to nearest ED if any of these develop, keep Right chest tube site dressing in place x48 hours, afterwards may remove dressing and keep open to air, OK to shower, dry well afterwards, no swimming, bathing, soaking. She voiced understanding. Magali Kemp APRN documented in this encounter Procedure Notes Magali Kemp APRN - 07/07/2021 10:45 AM ESTProcedure(s): REMOVAL OF INDWELLING PLEURAL CATHETER Pre-Procedure Diagnose(s): Pleural effusion, malignant Post-Procedure Diagnose(s): Pleural effusion, malignant PleurX catheter removal procedure note: Patient was positioned on exam table with Right side up. The area surrounding the right sided PleurXwas prepped with chlorhexidine. The field was draped with sterile towels. Approximately 8 cc of 2% lidocaine was administered around the PleurX insertion site. A hemostat was then used to dissect adjacent the cuff of the PleurX in order to circumferentially release the adhesions between the PleurX cuff and subcutaneous tissues. Due to a moderate amount of adhesions, I asked JANET Arshad to assist. While continuing to release the adhesions the catheter was cut with scissors and a small hole was cut into the tube. The hole was covered with xeroform guaze and the patient was asked to take a deep breath and cough. Xeroform gauze was held over the hole while the remained adhesions were released. The patient was instructed to take deep breaths and cough again. Finally the patient was asked to perform a valsalva and the PleurX catheter was removed. A sterile occlusive dressing was applied. The patient was sent for a CXR which demonstrated a small apical pneumothorax. The patient tolerated well. Magali Kemp APRN 07/07/2021 documented in this encounter Miscellaneous Notes Addendum Note - Alex Carrillo RN - 07/07/2021 10:45 AM EST Addended by: ALEX CARRILLO on: 07/07/2021 02:12 PM Modules accepted: Orders Addendum Note - Alex Carrillo RN - 07/07/2021 10:45 AM EST Addended by: ALEX CARRILLO on: 07/07/2021 02:40 PM Modules accepted: Orders documented in this encounter Plan of Treatment Upcoming Encounters Date Type Specialty Care Team Description 06/16/2022 Office Visit Hematology and Oncology Jackie Dillon APRN [facility] HEMATOLOGY/[facility] DEPT. [place], [place] [address] (Wo rk) 06/16/2022 Infusion Hematology and Oncology documented as of this encounter Procedures Procedure Name Priority Date/Time Associated Comments Diagnosis SPECIMEN TO Routine 07/07/2021 2:12 PM Grade 2 follicular Res ults for this PATHOLOGY EST lymphoma of lymph procedure are in nodes of multiple the result s regions section. Pleural effusion, malignant SURGICAL PATHOLOGY Routine 07/07/2021 2:07 PM Res ults for this REPORT EST procedure are i n the results section. HC CREATININE STAT 07/07/2021 11:44 AM Grade 2 follicular R esults for this EST lymphoma of lymph procedure [...] who have questions please contact the health childcare center administrator that requested your imaging first. ? Narrative [...] ho have questions please contact the health childcare center administrator that requested your imaging first. Nicole Collier MD IMG DX ORDERABLES Specimen to Pathology (07/07/2021 2:12 PM EST) Specimen Anatomical Collection Method Collection Time Receive d Time (Source) Location / / Volume Laterality AP Specimen 07/07/2021 2:12 PM 2:12 EST PM EST Narrative [facility] - 07/07/2021 2:12 PM EST Specimen requisition ordered. ??Separate Pathology report to follow Nicole Collier MD PATHOLOGY/CYTOLOGY ORDERABLE S Performing Organization Address City/State/[place] [address] Surgical Pathology Report (07/07/2021 2:07 PM EST) Component Value Ref Test Analysis Performed At [facility] gist Range Method Time Signature Surgical [id number] ? Location: [address] [place] [address] Report The signing pathologist has (i) examined the relevant preparation(s) for the [facility] specimen(s) and (ii) rendered or confirmed the diagnosis(es) . HOSPITAL LABORATORY . ?Surgic al Pathology DIAGNOSIS A - Pleur X ??TM catheter pigtail from right chest Gross surgical pathology examination. Electronically signed by: ?Emi Gomez DO Verified: ??07/20/2021 8:43 ?? Pathologist Performed at: ??-[facility] Dept. of Pathology, [place], [place] SPECIMEN(S) SUBMITTED A - catheter pigtail from right chest, other (1) CLINICAL INFORMATION Patient with lymphoma and pl eural effusion, status post three months with PLEUR X catheter in place SPECIMEN PROCESSING A - Labeled/Fixative: Patient demographics, .Without fixativ e Quantity/Size: Single, 57.8 x 0.5 cm. Tissue Description: Portion of catheter tubing with the following markings: Pleur X ??TM. Sections/Processing: No sections submitted, gross diagnosis only ??pps Specimen (Source) Anatomical Collection Method Collection Time Re ceived Time Location / / Volume Laterality 07/07/2021 2:07 PM EST Nicole Collier MD PATHOLOGY/CYTOLOGY ORDERABLE S Performing Organization Address City/State/[place] [address] Chest w Contrast (07/07/2021 1:24 PM [...] who have questions please contact the health childcare center administrator that requested your imaging first. ? Narrative [...] sagittal reformatted images were generated. Per the cardiac cath technologist's note, the IV i nfiltrated on [...] sagittal reformatted images were generated. Per the cardiac cath technologist's note, the IV i nfiltrated on [...] ho have questions please contact the health childcare center administrator that requested your imaging first. Nicole Collier MD IMG CT ORDERABLES Creatinine (07/07/2021 11:44 AM EST) athologist Signature Creatinine 0.78 0.70 - [facility] 1.20 mg/dL [facility] Estimated GFR 75 >=60 [facility] mL/min/1.7 [facility] 3 ?? [facility] Comment: This patient? s estimated glomerular filtration rate (eGFR) is between 75 mL/min/1.73 m2 (patients with less muscl e mass) and 87 mL/min/1.73 m2 (patients with more muscle mass) [...] (Source) Location / / Volume Laterality Blood 07/07/2021 11:44 07/07/2021 AM EST 11:50 AM EST Resulting Agency Comment Spec In Lab Nicole Collier MD CHEMISTRY ORDERABLES Performing Organization Address City/State/[place] [address] documented in this encounter Visit Diagnoses Diagnosis 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 Pleural effusion, malignant Malignant pleural effusion 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 Pleural effusion, malignant Malignant pleural effusion 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 Pleural effusion, malignant Malignant pleural effusion documented in this encounter Care Teams Print Color Operator Relationship Specialty Start Date End Date None PCP - General 07/07/21 10/18/21 None documented as of this encounter
--- OUTSIDE RECORDS SUMMARY | 2022-05-21 01:02 | XMS_ITS | Encounter Summary ---
:1950 Author Organization [place] [address] Care Team Providers Name Role Phone Unavailable Primary Care Provider Unavailable Reason for Visit Auth/Cert Specialty Diagnoses / Procedures Referred By Contact Refer red To Contact Diagnoses Pleural effusion PLEURAL EFFUSION Procedures EMERGENCY OBSVO Referral ID Status Reason Start Date Expiration Date Visits Requ ested Visits Authorized [id number] 1 1 Encounter Details Date Type Department Care Team Description 03/20/2021 - Hospital Encounter [facility] [address] [place] [address] Pleural effusion 03/21/2021 [facility] [place] [address] [place] [address] [place] [id number] Social History Tobacco Use Types Packs/Day Years [...] Sign Reading Time Taken Comments Blood Pressure 133/74 03/21/2021 11:29 AM EDT Pulse - - Temperature 36.9 ??C (98.4 ??F) 03/21/2021 11:29 AM EDT Respiratory Rate 18 03/21/2021 11:29 AM EDT Oxygen Saturation 94% 03/21/2021 11:29 AM EDT Inhaled Oxygen Concentration - - Weight - - Height - - Body Mass Index - - documented in this encounter Discharge Summaries Sameer Bernardo MD - 03/21/2021 11:40 AM EDT Hospital Discharge Summary Patient Name: Brian Bliss Patient Age: 70 y.o. Birthdate: 1950 Admit date: 03/20/2021 Discharge date and time: 03/21/2021 Attending Physician: Sameer Bernardo MD ID: Brian Bliss is a pleasant 70 y.o. with a PMH of follicular lymphoma (Grade 3A, dx 08/2019 without treatment, PET 03/17 shows diffuse neva involvement, splenomegaly), HTN, HLD, hypothyroidism, depression. who was admitted to Hospital Medicine for right-sided malignant pleural effusion s/p PleurX catheter placeement on 03/20. Follow-up Recommendations for Providers: - Patient has Grade 3A follicular lymphoma with recurrent pleural effusion. Has chest tube drain in called a PleurX. VNA will help patient with dressing changes, drainage and provide additional supplies. - Patient will have a follow-up visit with Dr. Sukhjinder Burton at [facility] thoracic surgery. - Patient has follow-up with oncologist, Dr. Griffin - she will be starting treatment for lymphoma soon - Had a bone marrow biopsy which showed follicular lymphoma in her bone marrow - PET scan on 03/17 showed neva involvement, has pelvic node with increased FDG avidity - could benefit from biopsy Discharge Diagnoses (Hospital Problems) and Secondary Diagnoses (Chronic Problems): Active Hospital Problems Diagnosis ??? Pleural effusion ??? 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 Biopsy at [place]. 09/06/19 LN Interpretation at [facility] Outside slide(s) labeled [id number], collection date 09/06/2019. Lymph node, supra clavicular [...] restaging and BR followed by . 03/17/21 03/17/21 PET EXAMINATION: NM PET CT STANDARD SKULL BASE TO MID-THIGH COMPARISON: CT chest 02/12/2021, CT chest abdomen and pelvis 10/17/2020, and PET/CT 10/04/2019 HEAD/NECK: FDG avid adenopathy in the bilateral upper and lower cervical and supraclavicular regions and within the bilateral parotids, increased in size and number compared to prior PET/CT of 09/2019. Power Grader Operator lymph node within the highest FDG uptake in the left level 2 region measures 10 mm with SUV max of 18.7 (axial image 26). ?? CHEST: FDG avid adenopathy in the bilateral axillary and bilateral mediastinal and hilar regions, similar in size compared to CT chest of 10/17/2020. Power Grader Operator lymph node with the highest FDG uptake [...] size compared to prior CT of 10/17/2020. Power Grader Operator adenopathy in the highest FDG uptake in [...] uptake (SUV max greater than 12) with field representatives director nodes detailed above, are highly suspicious for lymphoma transformation and would be amenable to CT-guided biopsy if clinically indicated. 4. Large right pleural effusion, unchanged compared to prior CT of 02/16/2021. ECHO [place] EF LDH normal 171 03/2021 BMBx Bone marrow aspirate, biopsy , peripheral smear : 1. ??Follicular lymphoma, by history. 2. ??Normocellular marrow (40%) with ?? maturing trilineage hematopoiesis and involved ??by paratrabecular lymphoid aggregates c/w ??F ?? ollicular lymphoma, involving 40% of the ??cellularity. ??Cytogenetics pending. See discussion. Resolved Hospital Problems No resolved problems to display. Active Non-Hospital Problems Diagnosis ??? Hypertension ??? Hypothyroidism ??? Hypercholesterolemia Procedures: Interventional Radiology Procedure Note ?? Procedure: Ultrasound-guided tunneled chest drain implant ?? Indication for procedure: Follicular lymphoma, shortness of breath, recurrent pleural fluid Procedure summary: 1.) Limited thoracic ultrasound 2.) Ultrasound-guided tunneled pleural drain implant ?? Pre-procedure: Initial thoracic ultrasound was performed. A safe window for chest drain placement was identified in the right posterior chest. Informed consent for the procedure including risks, benefits and alternatives was obtained. Active time-out was performed prior to the procedure. The site was p repared and draped using maximal sterile barrier technique. Method of sedation: None Technique: Under real-time ultrasound guidance, local anesthetic was administered down to the pleura. A small incision was made in the skin with a #11 scalpel. An 18 ga needle was advanced into the pleural space with return of pleural fluid. A 0.035 J guidewire was placed and the needle removed. Subcu taneous tissue on the posterior chest wall was anesthetized inferolateral to the access site. A trocar was then used to advance the catheter subcutaneously to the pleural access site. Serial dilation of the pleural access point was performed and a peel-away sheath was advanced over the wire. The catheter was passed into the sheath as it was peeled away. The catheter position in the pleural cavity wasconfirmed with ultrasound. The pleural access site was closed with 4-0 vicryl and the catheter was secured to the skin. 1600 ml pale yellow fluid was drained. Drainage was disconnected and a clean, sterile dressing was applied. ?? Medications: Please see MAR Estimated blood loss: 5 ml Complications: No immediate Specimens: None Impression: Ultrasound-guided tunneled right chest drain implant with removal of 1600 ml pale yellowpleural fluid. History of Presentation (per 03/20/2021 Admission H&P): 70 year old female with recent diagnosis of follicular lymphoma -- undergoing watch and wait approach given diagnosis in the pandemic of coronavirus disease 2019 -- who underwent a right sided Pleurx placement today for a symptomatic pleural effusion at the recommendation of thoracic surgery. This wasuneventful with removal of 1600 mL of straw colored pleural fluid which was sent for cell count, flow cytometry and a leukemia/lymphoma screen. Previous pleural fluid from the right side was positive for malignancy on February 24. ?? The thoracic surgery service requested overnight observation with slow (1 L / 4 hour period maximum)drainage of her pleural space given the size of her effusion and their concern about the possibilityof re-expansion pulmonary edema. ?? Ms. Bliss notes a slight discomfort at the insertion site. She has no other complaints Hospital Course: Brian Bliss was admitted to the Hospital Medicine Service on 03/20/2021. The following acute and chronic medical issues were identified during this phase of their hospitalization, and managed as summarized below by problem: #Malignant pleural effusion, unilateral, status post Pleurx placement #Follicular lymphoma The patient had a chest tube placed for drainage of R pleural effusion. 1600ml were drained during the procedure. Continues to drain straw-colored fluid on day of discharge. CXR on 03/21 prior to discharge showed no acute cardiopulmonary process and resolution of effusion. No shortness of breath on discharge. The patient had no symptoms, physical exam findings, or CXR findings concerning for re-expansion pulmonary edema. Can take tylenol as needed for pain. VNA will follow PleurX drainage and providesupplies at home. Has follow-up visits planned with oncology and thoracic surgery. Early on, should anticipate draining PleurX twice daily. Thoracic surgery will decide when the tube comes out. Will begin treatment with Dr. Griffin, oncologist in the coming weeks. ?? 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 Can continue diltiazem, lisinopril-HCTZ as before admission. Hypothyroid: Continued levothyroxine during admission Bladder: Has not picked up tolterodine prescription yet so not ordered. Can slate picker as outpatient for urinary retention. Mood: Continued Venlafaxine qhs Lipids: Continued home atorvastatin Physical Exam: Vital Signs: Last value Range last 24 hrs Temperature Temp: 36.9 ??C (98.4 ??F) Temp: [36.4 ??C (97.6 ??F)-37.3 ??C (99.2 ??F)] Heart Rate Heart Rate: [66] Blood Pressure BP: 133/74 BP: (131-174)/(54-86) Respiratory Rate Resp: 18 Resp: [16-18] SpO2 SpO2: 94 % SpO2: [93 %-97 %] Gen: Well appearing and in no acute distress. HEENT: EOMI, PERRLA, anicteric. CV: Regular rate and rhythm, no murmur, rub or gallop appreciated. Pulm: Clear to auscultation and percussion bilaterally, no crackles, wheezes or rhonchi appreciated.Good air flow in all lung quadrants including near PleurX drain site Abd: Non-tender and non-distended, though reports feeling full on palptation. No HSM appreciated. Ext: 1+ non-pitting edema to bilat shins. DP and PT pulses 2+ bilaterally. Skin: Warm, dry, no rashes or lesions. Neuro: CN II-XII grossly intact, no focal deficits. Full strength and sensation in bilat UE and LE. Lymph: Bulky posterior and anterior cervical nodes. Palpable axillary nodes bilaterally. Important Studies and Lab Data: Recent Labs 03/19/21 0727 WBC 3.4* HGB 11.2* HCT 33.6* PLATELET 156 No results for input(s): NA, K, CL, CO2, BUN, CREATININE, MAGNESIUM, PHOS in the last 168 hours. Invalid input(s): CALCIUM No results for input(s): BILITOT, BILIDIR, AST, ALT, ALKPHOS in the last 168 hours. No results for input(s): INR, PTT in the last 168 hours. Microbiology: COVID negative Pleural cultures NGTD Pertinent radiology/diagnostic studies: PET Scan 03/17/21 ?? IMPRESSION 1. ??Extensive neva involvement by lymphoma and neck, chest, abdomen, and pelvis as described above. 2. ??Diffusely increased activity throughout the spleen which is increased in size compared to prior PET/CT, consistent with splenic involvement by lymphoma. 3. ??Notable small FDG avid lymph nodes with a very high degree of FDG uptake (SUV max greater than 12) with field representatives director nodes detailed above, are highly suspicious for lymphoma transformation and would be amenable to CT-guided biopsy if clinically indicated. 4. ??Large right pleural effusion, unchanged compared to prior CT of 02/16/2021. ?? CXR PA & Lateral 03/21/21 IMPRESSION Trace right chest wall subcutaneous emphysema with trace right pneumothorax status post interval placement of tunneled right multi sidehole pleural catheter. Near complete decompression of right pleural effusion ?? Pleural fluid: yellow, cloudy - WBC 2037 consistent with lymphoma ?? Bone Marrow 03/19/21 DIAGNOSIS Bone marrow aspirate, biopsy , peripheral smear : 1. ??Follicular lymphoma, by history. 2. ??Normocellular marrow (40%) with ?? maturing trilineage hematopoiesis and involved ??by paratrabecular lymphoid aggregates c/w ??Follicular lymphoma, involving 40% of the ??cellularity. ??Cytogenetics pending. See discussion. Discharge Conditions/Prognosis: Upon discharge the pt is hemodynamically stable, fully ambulatory without requiring supplemental oxygen, afebrile and pain free controlled with tylenol PRN. Discharge to: home with VNA services: [facility] in [place], [place] and [phone] Discharge Medications: Your Medications Continued medications, unchanged Dose Details atorvastatin 10 mg Tab Commonly known as: Lipitor 10 mg daily. 10 mg Refills: 0 DILTiazem HCl 240 mg Tablet sr Commonly known as: Cardizem LA Take 240 mg by mouth daily. 240 mg Refills: 0 levothyroxine 75 mcg Tab Commonly known as: Synthroid Take 75 mcg by mouth daily. 75 mcg Refills: 0 lisinopriL-hydrochlorothiazide 20-25 mg Tab Commonly known as: zestoretic Take 1 tablet by mouth daily. 1 tablet Refills: 0 tolterodine LA 2 mg Cp24 Commonly known as: Detrol LA Take 2 mg by mouth daily. 2 mg Refills: 0 ubiquinone 100 mg Cap Commonly known as: coenzyme Q10 Take 200 mg by mouth daily. 200 mg Refills: 0 UNABLE TO FIND Krill oil daily Refills: 0 venlafaxine XR 37.5 mg Cp24 Commonly known as: Effexor-XR Take 37.5 mg by mouth daily. 37.5 mg Refills: 0 Vitamin D-3 50 mcg (2,000 unit) Tab Take 50 Units by mouth daily. Generic drug: cholecalciferol (Vitamin D3) 50 Units Refills: 0 STOPPED Medications cetirizine 10 mg Tab Commonly known as: ZyrTEC fluticasone propionate 50 mcg/actuation Spsn Commonly known as: Flonase Instructions Given to Patient at Discharge: Patient Instructions Instructions on Discharge to Home Why you were hospitalized - You were admitted to the hospital with shortness of breath and chest pain related to a recurrent collection of fluid in your chest compressing your right lung. A device called a PleurX was placed in your chest to drain this collection of fluid. A significant amount of fluid was drained, your breathingimproved and a chest x ray after draining confirmed that the device was well-placed and was adequately draining the fluid collection. Call your doctor or seek medical attention if you develop the following - chest pain, shortness of breath, fever, cough, fainting or other concerning symptoms. Call your thoracic surgery team if you have any questions regarding the PleurX device or what is draining out of it. Activity level - no restrictions Diet - no change in previous diet Driving - as before hospitalization Shower/Bath - permitted, follow instructions with bandages described below. Wound Care - you have bandages over your PleurX device site and where you had bone marrow biopsies. Home Oxygen therapy - none Changes in Your Medications: New Medications: You can take Tylenol 650mg every 6 hour as needed for pain. Do not exceed 3g in 24 hrs as this can harm your liver. Medication dose changes: None Stop these medications: None Workup to be followed: - The thoracic surgery team will call you about scheduling a follow-up appointment regarding your PleurX chest tube. - You have a clinic visit with Dr. Griffin about your lymphoma as listed below on 03/25 in [place], [place]. - Visiting Nursing services will be set up to assist you with your PleurX device and provide supplies - We recommend seeing your PCP within in the next 1-2 weeks. Follow-up: Future Appointments Date Time Provider Department Center 03/25/2021 3:00 PM Bina Monique MD [facility] Your Inpatient Doctor: Sameer Bernardo MD Your Primary Care Provider: Jared Anna MD [phone] For questions regarding this document or issues relating to this hospitalization on the Medical Service, please contact your inpatient physician through the [facility] Nuclear Equipment Design Engineer . Issues after hours and on weekends will be handled by the Hospitalist staff on-call. General Instructions PleurX Catheter Instructions: The Pleurx catheter will need to be drained twice a day using the special collection bottles. It is important to accurately record the amount of drainage each time and bring this information to your appointment with Dr. Burton. The Pleurx dressing will need to be changed every day. The visiting nurseswill assist with both the dressing changes and draining the catheter and will help teach you how to do this yourself. You have been sent home with 10 of the special drainage bottles/kits. The visiting nurse can also help you order more bottles/kits when needed. Feel free to call our office if you havequestions or concerns . Use the chart below to record drainage amounts and bring this information to your follow up appointment. Date: Time: Drainage Amount: Future Appointments and Orders Future Appointments and Orders Future Appointments Provider Department Dept Phone 03/25/2021 3:00 PM Bina Monique MD Hematology/Oncology at [facility] Arrive at: [facility] door at end of hallway [phone] Future Orders Complete By Expires Referral to Home Health - at DISCHARGE [[id number] CPT(R)] As directed Process Instructions: Scheduling Instructions: Comments: DOCUMENTATION FOR VNA SERVICES (INCLUDING THOSE PATIENTS WITH MEDICARE COVERAGE REQUIRING HOME VNA SERVICES AND/OR HOSPICE SERVICES) PATIENT'S LOCATION: Brian Bliss [address] [place] [id number] [place] [phone] Invertebrate Paleontologist's Name: In discussion with the attending physician, it is certified that this patient is under their care and that they, or a Nurse Practitioner,Clinical Nurse specialist or Physician Loin Puller who is working directly with them, had a face to face encounter that meets the physician face to face encounter requirements with this patient on 03/21/21 ( please enter DC date here) The encounter with the patient was in whole, or in part, for the following medical condition, which is the primary reason for home health care services: malignant pleural effusion secondary to follicular lymphoma In discussion with the provider, it is certified that, based on their findings, the following services are medically necessary for home health services. To provide the following care/treatments with the clinical findings supporting the need for servicesas follows: HOME CARE ORDERS: RN ORDERS:Assess wound or incision, vital signs, cardiopulmonary status, nutrition, hydration, elimination, meds effectiveness and management; reinforce education re health issues . Drainage and management of pleural drainage catheter; patient education for same. HOME HEALTH CARE AGENCY: [facility] in [place], [place] and [phone] Start of care: 24-48 hours after discharge. Please note that any additional orders needs or changes will need to be obtained from this patient'sPCP: Jared Anna MD [address] [facility] [address] All A agencies which cover the area of patient's residence have been reviewed, either verbally or in writing, and patient/family have chosen the home health care agency noted Questions: Agency name and contact information: [facility] Patient location post discharge: Home What services are requested: Registered Nurse Start date: Responsible MD post discharge contact info: PCP Provider Contact Information: Jared Anna MD [address] [facility] [id number] Discharge References/Attachments: Discharge References/Attachments None Kam Card [facility] MS4 [facility] Medicine Pager #[phone] Sameer Bernardo MD 03/21/2021 1:31 PM documented in this encounter Discharge Instructions Discharge InstructionsHuseyin Baez PA - 03/20/2021 10:17 PM EDT PleurX Catheter Instructions: The Pleurx catheter will need to be drained twice a day using the special collection bottles. It is important to accurately record the amount of drainage each time and bring this information to your appointment with Dr. Burton. The Pleurx dressing will need to be changed every day. The visiting nurseswill assist with both the dressing changes and draining the catheter and will help teach you how to do this yourself. You have been sent home with 10 of the special drainage bottles/kits. The visiting nurse can also help you order more bottles/kits when needed. Feel free to call our office if you havequestions or concerns . Use the chart below to record drainage amounts and bring this information to your follow up appointment. Date: Time: Drainage Amount: Patient InstructionsUri Pace - 03/21/2021 11:33 AM EDT Instructions on Discharge to Home Why you were hospitalized - You were admitted to the hospital with shortness of breath and chest pain related to a recurrent collection of fluid in your chest compressing your right lung. A device called a PleurX was placed in your chest to drain this collection of fluid. A significant amount of fluid was drained, your breathingimproved and a chest x ray after draining confirmed that the device was well-placed and was adequately draining the fluid collection. Call your doctor or seek medical attention if you develop the following - chest pain, shortness of breath, fever, cough, fainting or other concerning symptoms. Call your thoracic surgery team if you have any questions regarding the PleurX device or what is draining out of it. Activity level - no restrictions Diet - no change in previous diet Driving - as before hospitalization Shower/Bath - permitted, follow instructions with bandages described below. Wound Care - you have bandages over your PleurX device site and where you had bone marrow biopsies. Home Oxygen therapy - none Changes in Your Medications: New Medications: You can take Tylenol 650mg every 6 hour as needed for pain. Do not exceed 3g in 24 hrs as this can harm your liver. Medication dose changes: None Stop these medications: None Workup to be followed: - The thoracic surgery team will call you about scheduling a follow-up appointment regarding your PleurX chest tube. - You have a clinic visit with Dr. Griffin about your lymphoma as listed below on 03/25 in [place], [place]. - Visiting Nursing services will be set up to assist you with your PleurX device and provide supplies - We recommend seeing your PCP within in the next 1-2 weeks. Follow-up: Future Appointments Date Time Provider Department Center 03/25/2021 3:00 PM Bina Monique MD [facility] Your Inpatient Doctor: Sameer Bernardo MD Your Primary Care Provider: Jared Anna MD [phone] For questions regarding this document or issues relating to this hospitalization on the Medical Service, please contact your inpatient physician through the [facility] Nuclear Equipment Design Engineer . Issues after hours and on weekends will be handled by the Hospitalist staff on-call. documented in this encounter Medications at Time of Discharge Medication Sig Dispensed Refills Start Date End Date tolterodine LA (Detrol LA) Take 2 mg [...] 50 mcg (2,000 unit) mouth daily. Tablet DILTiazem HCl 240 mg Tablet Take 240 mg by 0 08/1103/25/2021 Sustained Release 24 hr mouth daily. ubiquinone (coenzyme Q10) Take 200 mg by 0 05/06/2021 100 mg Capsule mouth daily. documented as of this encounter Progress Notes Shanita Palomino RN - 03/21/2021 3:27 PM EDT Patient discharging to home w/ VNA via private car. All PIVs removed. Pt belongings packed and returned to patient. No meds to return. Pt educated on pleurex drainage system, pleurex capped and dressing changed prior to dc. AVS reviewed, pt wheeled to east entrance to leave w/ . Gabino Álvarez MD - 03/21/2021 1:26 PM EDT [facility] Department of Thoracic Surgery Inpatient Progress Note Patient Name: Brian Bliss Patient : 1950 Patient Patient Location: -A Attending Surgeon: LINDA FRAIRE SHANE M ID: Brian Bliss is a 70 y.o. female with a PMHx significant for follicular lymphoma, HTN, HLD, hypothyroidism and depression, now with malignant right effusion s/p pleurx. 24 Hour Events / Subjective: - Pleurx placed, output decreasing - received teaching and kits - Breathing improved, no complaints Vitals: Temp: [36.4 ??C (97.6 ??F)-37.3 ??C (99.2 ??F)] Heart Rate: [66] Resp: [16-18] BP: (131-174)/(54-86) SpO2: [93 %-97 %] Heart Rate from SpO2: [67 bpm-83 bpm] Wt & BMI By Encounter Date Office Visit from 03/20/[address] [facility] Admission (Discharged) from 03[facility]19/[facility] Weight 81.6 kg (180 lb) 1 03/20/2021 1115 81.6 kg (180 lb) 1 03/19/2021 0707 BMI 31.89 1 03/20/2021 1115 31.88 1 03/19/2021 0707 Physical Exam: Gen: NAD, pleasant, sitting in bed Card: RRR, no M/R/G appreciated Pulm: CTAB, no wheeze/ronchi/rales appreciated, non-labored breathing on RA, Right CT to -10 sxn (pleurx) with no airleak appreciated Abd: soft, NT, BS+ Ext: warm, dry, no edema Neuro: A&Ox3, nonfocal, conversant I/O: I/O last 3 completed shifts: In: 300 [P.O.:300] Out: 1905 [Urine:400; Other:1505] Labs: Recent Results (from the past 72 hour(s)) Hemogram Result Value Ref Range WBC 3.4 (L) 4.0 - 9.5 x10(3)/mcL RBC 3.70 (L) 4.00 - 5.21 x10(6)/mcL Hemoglobin 11.2 (L) 11.7 - 15.5 gm/dL Hematocrit 33.6 (L) 35.7 - 45.8 % MCV 90.8 82.6 - 94.4 fL MCH 30.3 27.1 - 32.0 pg MCHC 33.3 31.7 - 35.0 gm/dL Platelets 156 145 - 357 x10(3)/mcL RDWSD 44.2 37.0 - 46.0 fL RDWCV 13.4 11.5 - 14.1 % MPV 10.6 7.6 - 12.9 fL nRBC % Auto 0.0 % nRBC Abs Auto 0.000 0.000 - 0.000 x10(3)/mcL Differential, Automated Result Value Ref Range Neutrophils % 61.4 % Neutr Abs (ANC) 2.06 1.70 - 6.10 x10(3)/mcL Lymphocytes % 27.5 % Lymphocytes Abs 0.9 0.9 - 3.2 x10(3)/mcL Monocytes % 8.1 % Monocyte Abs 0.3 0.3 - 0.9 x10(3)/mcL Eosinophils % 2.4 % Eosinophils Abs 0.1 0.0 - 0.4 x10(3)/mcL Basophils % 0.6 % Basophils Abs 0.0 0.0 - 0.1 x10(3)/mcL Immature Gran % 0.00 % Lorraine Gran Abs 0.00 0.00 - 0.04 x10(3)/mcL Iron Stain, Bone Marrow Result Value Ref Range Iron Stain BM See Comment Bone Marrow Final Report Result Value Ref Range Bone Marrow Final Report [id number] Location: [facility] The signing pathologist has (i) examined the relevant preparation(s) for the specimen(s) and (ii) rendered or confirmed the diagnosis(es). . Bone Marrow Final DIAGNOSIS Bone marrow aspirate, biopsy , peripheral smear : 1. Follicular lymphoma, by history. 2. Normocellular marrow (40%) with maturing trilineage hematopoiesis and involved by paratrabecular lymphoid aggregates c/w F ollicular lymphoma, involving 40% of the cellularity. Cytogenetics pending. See discussion. Electronically signed by: Iain Draper MD Verified: 03/20/2021 17:24 Hematopathologist Performed at: -[facility] Dept. of Pathology, [facility], [place], [place] PERIPHERAL SMEAR WBC 3.35K/ uL, RBC 3.7M/ uL, HGB 11.2g/dL, MCV 90.8fL, RDW 13.4%, PLT 156K/ uL There is a mild normochromic normocytic anemia. Anisopoikilocytosis is increased, and ovalocytes, elliptocytes seen. Polychromasia is not significantly increased. The total leukocyte count is decreased (3.35 K/uL). The neutrophils are mostly mature and without significant left-shift. Atypical lymphocytes are present. Remaining leukocyte morphology is generally unremarkable. The platelet counts and morphology are normal. BONE MARROW ASPIRATE Adequacy: Smear/touch preparations adequate, cellular. G:E ratio: 2:1 Erythroid: Complete normoblastic maturation, no left-shift. Granulocyte: Complete normal maturation, no left-shift. Megakaryocyte: Normal in number and morphology. Lymphocyte: Scattered mature forms seen, with scant aggregates appreciated. Other: Normal plasma cells, eosinophils, basophils, and mast cells. Iron stain: No particles are present, no ring sideroblasts are present. DIFFERENTIAL Band/Seg 46%; Lymph 2%; [place] 0%; Eos 4%; Baso 0%; Metamyelocyte 2%; Myelocyte 4%; Promyelocyte 3%; Blast 0%; nRBC's 39%; Plas ma cell 0%; Other 0%; BONE MARROW BIOPSY and/or CLOT Adequacy: Adequate, evaluable marrow present. Cellularity: Normocellular, 40% Erythroid: Precursors numerically normal. Granulocyte: Precursors numerically normal. Megakaryocyte: Normal in number and appearance, no clustering seen. Lymphocytes: Paratrabecular aggregates identified, consistent with lymphoma involvement, involving 40% of the cellularity, composed by small B lymphocytes, no large cells present. Other: Normal plasma cells, eosinophils, basophils, and mast cells. Bone: Trabecular bone normal for age. Special stain: Not performed IMMUNOHISTOCHEMISTRY STUDIES Block: A1 Fixative: Formalin . BONE MARROW BIOPSY and/or CLOT ANTIBODY RESULT/COMMENT CD3 Positive in T cells CD19 Positive in B cells The immunoperoxidase stains reported above were developed by the clinical laboratory at [facility]. Antibody specifi cities have been verified on tissues with known staining performance characteristics. These stains have not been cleared or approved by the U.S. Food and Drug Administration, however such approval is not required for analyte-specific reagents of this type. Appropriate positive and negative controls are included for each case. CLINICAL INFORMATION Specimen: Bone marrow aspirate and biopsy, right Clinical Diagnosis: Follicular Lymphoma Indication for Study: Follicular Lymphoma Staging Leukemia Lymphoma Screen Result Value Ref Range LLS BF Type Pleural, Right Leukemia Lymphoma Screen See Comment Immunophenotyping Flow Cytometry Result Value Ref Range Immunophenotyping Flow See Comment Cell Count Body Fluid Result Value Ref Range Spec Type BF Pleural, Right Color BF Yellow Appearance BF Slightly Cloudy WBC BF Ct 2,038 /mcl Polymorph % 0 % Mononuc % 100 % Polymorph BF ABS 7 /mcl Mononuc ABS 2,031 /mcl Fluid Review Report Result Value Ref Range Fluid Review Report [id number] Location: 3K The signing pathologist has (i) examined the relevant preparation(s) for the specimen(s) and (ii) rendered or confirmed the diagnosis(es). . Flow Cytometry DIAGNOSIS Flow cytometric diagnosis: CD19,CD10 and monotypic immunoglobulin light chain restricted B-cell population identified. see discussion Electronically signed by: Iain Draper MD Verified: 03/21/2021 11:54 Hematopathologist Performed at: -[facility] Dept. of Pathology, [place], [place] DISCUSSION Cell viability was 95% as assessed by 7-AAD exclusion. The specimen contained a population of CD19, CD10 positive B lymphocytes that had a monotypic staining pattern for kappa immunoglobulin light chain. NOTE The findings support the diagnosis of lymphoma and indicate B-cell phenotype. The most frequent types of lymphoma that exhibit CD10 positive B-cell phenotype includes follicular lymphoma, diffuse large B-cell lymphoma and Burkitt lymphoma. Morphologic correlation is required to distinguish among these possibilities. Flow analysis is an ancillary study. A definite diagnosis requires correlation with the morphologic features of this process and if necessary, correlation with other ancillary studies like immunohistochemistry, enzyme cytochemistry and/or cyto/ molecular genetics. This test was developed and its performance characteristics determined by the Clinical Flow Cytometry Laboratory at [facility]. It has not been cleared or approved by the U.S. Food and Drug Administration. The FDA has determined that such clearance or approval is not necessary. This test is used for clinical purposes. It should not be regarded as investigational or for research. This laboratory is certified under the Clinical Laboratory Improvement Act of 1988 (CLIA) as qualified to perform high complexity clinica l laboratory testing. SPECIMEN PROCESSING [id number] Cells for immunophenotypic analysis were derived from right pleural fluid. CD45 vs side scatter gating was utilized to identify a lymphoid analysis region that comprises approximately 95% of all cells. The following markers were assessed: CD3, CD5, CD10, CD19, CD45, CD56, kappa light chain, and lambda light chain. CLINICAL INFORMATION Follicular lymphoma . Fluid Review DIAGNOSIS Lymphoma cells present c/w history of Follicular lymphoma Electronically signed by: Iain Draper MD Verified: 03/21/2021 11:53 Hematopathologist Performed at: -[facility] Dept. of Pathology, [place], [place] DISCUSSION The effusion contains large population of small to intermediate size lymphocytes c/w low grade lymphoma. Microscopic Description: WBC/uL: 2038 % PMN: 0.4 MN: 99.6 Polymorphonuclear cells (PMN) inc lude neutrophils, eosinophils, and basophils. Mononuclear cells (MN) include lymphocytes and monocytes. Abnormalities, if any, are described above. ADDITIONAL STUDIES Flow analysis supports the above finding. CLINICAL INFORMATION Specimen: Pleural fluid, right Clinical Diagnosis: FL Indication for Study: ? lymphoma COVID-19 PCR Specimen: Nasopharyngeal Swab Symptoms->Surveillance Result Value Ref Range SARS-CoV-2 RNA PCR Not Detected Not Detected SARS-CoV-2 Source SKIRT CLIPPER Swab Diagnostics: Results for orders placed or performed during the hospital encounter of 03/20/21 XR Chest PA & Lateral (Generic) (Exam End: 03/21/2021 6:19 AM) Narrative EXAMINATION: XR CHEST PA AND LATERAL (GENERIC) CLINICAL HISTORY: Monitor R sided effusion for interval change TECHNIQUE: PA and lateral views of the chest COMPARISON: February 24, 2021 FINDINGS: Interval placement of right subclavian MediPort catheter, intact, tip at SVC. Interval placement of tunneled right multi sidehole pleural drain, satisfactorily positioned with near complete decompression of right pleural effusion. Trace right pneumothorax. Cardiac, mediastinal and hilar contours are normal. Severe left glenohumeral degenerative changes. Trace right chest wall subcutaneous emphysema. Impression Trace right chest wall subcutaneous emphysema with trace right pneumothorax status post interval placement of tunneled right multi sidehole pleural catheter. Near complete decompression of right pleural effusion. Thank you for letting us participate in the care of this patient. If you are a health care provider and have any questions regarding this report, please contact the number below. For patients who have questions please contact the health grounds caretaker that requested your imaging first. Assessment: Brian Bliss is a 70 y.o. female who is s/p pleurx catheter for malignant effusion on right. Effusion resolved with decreased catheter output. Appropriate for discharge today assuming VNA set up. Plan: - BID drainage of pleurx at home even if no output, continue to suction until discharge - Pleurx teaching. [facility]NA for eval and kit delivery - We will set up follow up with thoracic clinic next week over the phone - Call if questions Gabino Álvarez MD 03/21/2021 Thoracic Surgery Service Pager [phone] Associated attestation - Yadiel Silver MD - 03/21/2021 5:56 PM EDT I have seen the patient and reviewed the resident's above note and I agree with the details as written. I have personally reviewed the relevant imaging. The assessment and plan were formulated in discussion with me and I agree with them as documented. Yadiel Silver MD 03/21/2021 Sameer Bernardo MD - 03/21/2021 1:24 PM EDT Hospital Medicine - Attending Day of Discharge Documentation Discharge diagnosis Active Hospital Problems Diagnosis ??? Pleural effusion ??? 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 Secondary Issues Active Non-Hospital Problems Diagnosis ??? Hypertension ??? Hypothyroidism ??? Hypercholesterolemia I have personally seen and examined the patient and they are ready for discharge. I spent >30 minutes (Day of Discharge Code 53498) involved in the final examination of the patient, discussion of the hospital stay, instructions for continuing care to all relevant caregivers, and preparation of discharge records, prescriptions and referral forms. Plans ? Discharge to home ? Follow-up scheduled with oncology ? Please see the Discharge Summary for complete details of any medication changes and additional plans. Eufemia Kahn RN - 03/21/2021 12:04 PM EDTSummary: Case Management note Notified by team of this observation patient in need of home health services after placement of pleural drainage catheter. 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 She is comfortable with care/management of the system and has resources at home. Spouse and niece are available to help as needed. Nursing staff will provide drainage kits at time of discharge. She is agreeable to home health. The patient has been provided a list of Home Health Agencies/DME vendors which serve their preferred geographic area. A letter describing our affiliations was reviewed with them and they were educated about their right to choose where referrals are placed. Patient requests referral to [facility] in [place], [place] and [phone] Expected date of discharge: 03/21 Patient lives at home with her spouse and is independent in ADLs. No home equipment or services in place. Other than [facility] for pleurx management, patient does not require any additional assistance. Referral routed to the Continuity Coordinator for matching with agency/vendor and to provide any required information. Eufemia SANFORD, RN, [facility]- Dani Barfield MD - 03/21/2021 9:28 AM EDT INTERVENTIONAL RADIOLOGY Inpatient Progress Note Admitted 03/20/2021 Procedure(s): Tunneled chest drain implant. Post-procedure day: #1 Time of patient encounter: 100pm 24 Hour Events: No acute events overnight. States feel's like can breath again. Last Value 24 Hour Range Temperature 36.5 ??C (97.7 ??F) Temp: [36.4 ??C (97.6 ??F)-37.3 ??C (99.2 ??F)] Heart Rate Heart Rate: [66-68] Blood Pressure 143/72 BP: (131-174)/(54-86) Respiratory Rate 17 Resp: [16-18] SpO2 97 % SpO2: [93 %-97 %] Physical Exam GEN No distress CARDS acyanotic LUNGS Non labored breathing. Dressing dry, intact. Drains/Tubes: 575 ml serous fluid of thoracic pleurx catheter. Micro: Slightly cloudy pleural fluid with 2038 white blood cells. Imaging: Right pleural chest drain well-positioned. No pneumothorax. Assessment: 70 y.o. female with lymphoma, found to have malignant pleural fluid. IR placed right-sided Pleurx catheter on 03/20/2021. Catheter is functioning well. Plan: Educational instructions to patient for Pleurx use. Dressing changes as needed. Interventional radiology to sign off. Please call with questions, concerns, and as needed. Other care as per primary team. Kal Barfield M.D. PGY-6 Interventional Radiology Uri Pace - 03/21/2021 7:46 AM EDT Inpatient Medicine Progress Note (Medical Student) Patient information: Name: Brian Bliss : 1950 PCP: Jared Anna MD PCP phone number: [phone] Date of Admission: 03/20/2021 ( Hospital Day 0 days ) Service: Hospital Medicine Responsible Attending:Sameer Bernardo MD ID: Brian Bliss is a pleasant 70 y.o. with a PMH of follicular lymphoma (Grade 3A, dx 08/2019 without treatment, PET 03/17 shows diffuse neva involvement, splenomegaly), HTN, HLD, hypothyroidism, depression. who was admitted to Hospital Medicine for right-sided malignant pleural effusion s/p PleurX catheter placeement on 03/20. Now Hospital Day 0 days HPI: The patient initially presented with a left supraclavicular mass (biopsied). PCP office notes reportthat it was mobile, not painful except an occasional ache. She first noticed it in the fall 2018 andgrew since that time. With COVID - went with watch and wait approach. Around January 2021 she began to experience worsening SOB and SHERMAN. In early February 2021 she presented to [facility] and was noted to have RIGHT pleural effusion. A right thoracentesis was performed on 02/24/21and cytology was positive for follicular lymphoma. PET was performed 03/17/2021 which demonstrated recurrent right-sided malignant pleural effusion, neva involvement. She has also noticed her breathing symptoms have worsened since the thoracentesis, currently notes SOB and SHERMAN even worse than prior to that procedure. She was referred to [facility] Thoracic Surgery for further discussion of management of theeffusion. ?? Patient is a former very light smoker, around 1 pack per week for about 10 years, estimate about 1 pack year smoking history, none for many years. Reports ETOH use of about 3 glasses of wine per week, denies illicit drug use. 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 She is typically active with gardening and walking about 1-2 miles per day, but is very limitedby the effusion, only able to walk about 25 feet before having to rest, has to stop at least once while climbing a flight of stairs. Of note she underwent a bone marrow biopsy (showed follicular lymphoma), 03/19/2021, recently had Mediport placed, and is slated to start chemo in the next few weeks. Patient says there is a pelvic node that may need to be biopsied given increased degree of FDG uptake on PET scan. 24 Hour Events: Yesterday: - PleurX placed with removal of 1600mL straw colored pleural fluid - 680ml of yellow fluid drained via atrium to gravity, pt c/o pain during draining, Pleurx clamped, plan to try to drain another 120ml at 1930 for a total of 800ml Q3 hrs. Overnight: NAEO Subjective: Feeling very well without SOB, some R chest discomfort at drain site. Not pain per patient. Ready togo home. ROS: - no chest pain, dyspnea, palpitations - no dizziness, fatigue, headache - no vomiting, diarrhea, bowel movement changes, abdominal pain - no fevers, chills, diaphoresis Vitals: Last value Range last 24 hrs Temperature Temp: 36.5 ??C (97.7 ??F) Temp: [36.4 ??C (97.6 ??F)-37.3 ??C (99.2 ??F)] Heart Rate Heart Rate: [66-68] Blood Pressure BP: 143/72 BP: (131-174)/(54-86) Respiratory Rate Resp: 17 Resp: [16-18] SpO2 SpO2: 97 % SpO2: [93 %-97 %] Intake/Output Summary (Last 24 hours) at 03/21/2021 0795 Last data filed at 03/21/2021 0614 Gross per 24 hour Intake 300 ml Output 1905 ml Net -1605 ml No data found. Admit wt: Physical Exam: Gen: Well appearing and in no acute distress. HEENT: EOMI, PERRLA, anicteric. CV: Regular rate and rhythm, no murmur, rub or gallop appreciated. Pulm: Clear to auscultation and percussion bilaterally, no crackles, wheezes or rhonchi appreciated.Good air flow in all lung quadrants including near PleurX drain site Abd: Non-tender and non-distended, though reports feeling full on palptation. No HSM appreciated. Ext: 1+ non-pitting edema to bilat shins. DP and PT pulses 2+ bilaterally. Skin: Warm, dry, no rashes or lesions. Bone marrow biopsy site and pleural drain site c/d/i without erythema or pus. Neuro: CN II-XII grossly intact, no focal deficits. Full strength and sensation in bilat UE and LE. Lymph: Bulky adenopathy in posterior and anterior cervical chains and bilateral axilla. Medications: Scheduled Meds: ??? atorvastatin 10 mg Oral QPM ??? dilTIAZem CD 240 mg Oral Daily ??? levothyroxine 75 mcg Oral QAM ??? sodium chloride 0.9 % (flush) 5 mL Intravenous BID ??? venlafaxine 37.5 mg Oral Nightly Continuous Infusions: PRN Meds:.acetaminophen, sodium chloride 0.9 % (flush), lidocaine, ondansetron OR ondansetron Labs: Recent Labs 03/19/21 0727 WBC 3.4* HGB 11.2* HCT 33.6* PLATELET 156 NEUTROABS 2.06 No results for input(s): NA, K, CL, CO2, BUN, CREATININE in the last 168 hours. No results for input(s): CALCIUM, MAGNESIUM, PHOS in the last 168 hours. No results for input(s): AST, ALT, ALKPHOS, BILITOT, BILIDIR, ALBUMIN, LDH, URICACID in the last 168hours. No results for input(s): INR, PT, PTT in the last 72 hours. No results for input(s): TROPONINT, CK in the last 168 hours. Microbiology: COVID negative Pleural fluid cultures NGTD Pertinent radiology/diagnostic studies: PET Scan 03/17/21 IMPRESSION 1. Extensive neva involvement by lymphoma and neck, chest, abdomen, and pelvis as described above. 2. Diffusely increased activity throughout the spleen which is increased in size compared to prior PET/CT, consistent with splenic involvement by lymphoma. 3. Notable small FDG avid lymph nodes with a very high degree of FDG uptake (SUV max greater than 12) with field representatives director nodes detailed above, are highly suspicious for lymphoma transformation and would be amenable to CT-guided biopsy if clinically indicated. 4. Large right pleural effusion, unchanged compared to prior CT of 02/16/2021. CXR PA & Lateral 03/19/21 IMPRESSION Trace right chest wall subcutaneous emphysema with trace right pneumothorax status post interval placement of tunneled right multi sidehole pleural catheter. Near complete decompression of right pleural effusion. Pleural fluid: yellow, cloudy - WBC 2037 consistent with lymphoma Bone Marrow 03/19/21 DIAGNOSIS Bone marrow aspirate, biopsy , peripheral smear : 1. ??Follicular lymphoma, by history. 2. ??Normocellular marrow (40%) with ?? maturing trilineage hematopoiesis and involved ??by paratrabecular lymphoid aggregates c/w ??F ?? ollicular lymphoma, involving 40% of the ??cellularity. ??Cytogenetics pending. See discussion. ASSESSMENT/PLAN: Brian Bliss is a pleasant 70 y.o. with a PMH of follicular lymphoma (Grade 3A, dx 08/2019 without treatment, PET 03/17 shows diffuse neva involvement, splenomegaly), HTN, HLD, hypothyroidism, depression. who was admitted to Hospital Medicine for right-sided malignant pleural effusion s/p PleurX catheter placeement on. Now Hospital Day 0 days Patient is doing very well after Pleurx placement. She denies any shortness of breath, chest pain ornew concerns. The Pleurx is draining very adequately. Follow-up chest x-ray confirms adequate drain placement and resolved pleural effusion. The patient has been set up with VNA services, follow-up appointments with oncology and thoracic surgery, and may return to home for outpatient management of herpleural effusion and follicular lymphoma. See full problem-based plan below. #Malignant pleural effusion, unilateral, status post Pleurx placement #Follicular lymphoma - Follow cell count and flow / malignant cell screen; note prior thora sample 02/24 was positive - f/u pleural fluid cultures - Continue drainage with Pleurx - set up VNA and teaching - Repeat CXR PA/Lateral shows effusion is gone - f/u heme/onc and thoracic surgery for recs ?? #Chronic conditions / [employer] APPRENTICE meds Blood pressure: continue diltiazem, and re-start lisinopril-HCTZ Hypothyroid: home levothyroxine Bladder: tolterodine for urinary retention Mood: Venlafaxine qhs Lipids: home atorvastatin ?? #Routine DVT prophylaxis: subQ heparin GI prophylaxis: none Diet: regular Access: PIV Disposition: observe, teach PleurX, home Barriers to discharge: PleurX teaching Code status: Attempt Cardiopulmonary Resuscitation - Inpatient Kam Card MS4 [facility] Medicine Pager #[phone] Lelia Craig RN - 03/20/2021 6:50 PM EDT Pt arrived to floor at 1700. Belongings with pt, pt oriented to room. AxOx4, able to make needs known. VS as charted on RA. Denies SOB. PA at bedside to drain pleurx, 680ml of yellow fluid drained viaatrium to gravity, pt c/o pain during draining, pleurx clamped, plan to try to drain another 120ml at 1930 for a total of 800ml Q3 hrs. Dressings c/d/i. Up to bathroom SBA per policy. documented in this encounter H&P Notes Errol Wade MD - 03/20/2021 4:39 PM EDT Medicine Admission Note Patient Name: Brian Bliss Service: Medicine Pager [phone] until 0800 on 03/21, then see care team Primary Care Provider: Jared Anna MD [phone] Chief Complaint: Status post Pleurx History of Present Illness: 70 year old female with recent diagnosis of follicular lymphoma -- undergoing watch and wait approach given diagnosis in the pandemic of coronavirus disease 2019 -- who underwent a right sided Pleurx placement today for a symptomatic pleural effusion at the recommendation of thoracic surgery. This wasuneventful with removal of 1600 mL of straw colored pleural fluid which was sent for cell count, flow cytometry and a leukemia/lymphoma screen. Previous pleural fluid from the right side was positive for malignancy on February 24. The thoracic surgery service requested overnight observation with slow (1 L / 4 hour period maximum)drainage of her pleural space given the size of her effusion and their concern about the possibilityof re-expansion pulmonary edema. Ms. Bliss notes a slight discomfort at the insertion site. She has no other complaints. Review of Systems: As above, otherwise negative Past Medical and Surgical History: Patient Active Problem List Diagnosis ??? Pleural effusion ??? 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 Biopsy at [place]. 09/06/19 LN Interpretation at [facility] Outside slide(s) labeled [id number], collection date 09/06/2019. Lymph node, supra clavicular [...] Plans for restaging and BR followed by 03/17/21 03/17/21 PET EXAMINATION: NM PET CT STANDARD SKULL BASE TO MID-THIGH COMPARISON: CT chest 02/12/2021, CT chest abdomen and pelvis 10/17/2020, and PET/CT 10/04/2019 HEAD/NECK: FDG avid adenopathy in the bilateral upper and lower cervical and supraclavicular regions and within the bilateral parotids, increased in size and number compared to prior PET/CT of 09/2019. Power Grader Operator lymph node within the highest FDG uptake in the left level 2 region measures 10 mm with SUV max of 18.7 (axial image 26). ?? CHEST: FDG avid adenopathy in the bilateral axillary and bilateral mediastinal and hilar regions, similar in size compared to CT chest of 10/17/2020. Power Grader Operator lymph node with the highest FDG uptake [...] size compared to prior CT of 10/17/2020. Power Grader Operator adenopathy in the highest FDG uptake in [...] uptake (SUV max greater than 12) with field representatives director nodes detailed above, are highly suspicious for lymphoma transformation and would be amenable to CT-guided biopsy if clinically indicated. 4. Large right pleural effusion, unchanged compared to prior CT of 02/16/2021. ECHO [place] EF LDH normal 171 BMBx pending ??? Hypertension ??? Hypothyroidism ??? Hypercholesterolemia Medications: Current Facility-Administered Medications on File Prior to Encounter Medication Dose Route Frequency Provider Last Rate Last Admin ??? sodium chloride 0.9 % (flush) (BD PosiFlush Normal Saline 0.9) flush 5 mL 5 mL Intravenous BID Krishna Rivas PA ??? sodium chloride 0.9 % (flush) (BD PosiFlush Normal Saline 0.9) flush 5-20 mL 5-20 mL IntravenousQ1 Min PRN Krishna Rivas PA ??? lidocaine (Xylocaine) 1% (10 mg/mL) injection 3 mg 0.3 mL Subcutaneous Once PRN Krishna Rivas PA ??? [COMPLETED] lidocaine (Xylocaine) 1% (10 mg/mL) injection 10 mg 10 mg Subcutaneous Once Krishna Rivas PA 10 mg at 03/20/21 1518 ??? [COMPLETED] lidocaine-EPINEPHrine (1% - 1:100,000) injection 50 mL 50 mL Intradermal Once Krishna Rivas PA 50 mL at 03/20/21 1524 ??? [COMPLETED] ceFAZolin (Ancef) 2 g in dextrose 5% 100 mL infusion 2 g Intravenous Once PRN Evangelista Vela PA 200 mL/hr at 03/20/21 1520 2 g at 03/20/21 1520 Current Outpatient Medications on File Prior to Encounter Medication Sig Dispense Refill ??? tolterodine LA (Detrol LA) 2 mg Capsule, Sust. Release 24 hr Take 2 mg by mouth daily. ??? lisinopriL-hydrochlorothiazide (zestoretic) 20-25 mg Tablet Take 1 tablet by mouth daily. ??? UNABLE TO FIND Krill oil daily ??? atorvastatin (Lipitor) 10 mg Tablet 10 mg daily. ??? DILTiazem HCl 240 mg Tablet Sustained Release 24 hr Take 240 mg by mouth daily. ??? levothyroxine (Synthroid) 75 mcg Tablet Take 75 mcg by mouth daily. ??? venlafaxine XR (Effexor-XR) 37.5 mg Capsule, Sust. Release 24 hr Take 37.5 mg by mouth daily. ??? ubiquinone (coenzyme Q10) 100 mg Capsule Take 200 mg by mouth daily. ??? cholecalciferol, Vitamin D3, (Vitamin D-3) 50 mcg (2,000 unit) Tablet Take 50 Units by mouth daily. ??? [DISCONTINUED] fluticasone propionate (FLONASE) 50 mcg/actuation [place], Suspension 1 spray by Each Nare route daily. 16 g 12 ??? [DISCONTINUED] cetirizine (ZyrTEC) 10 mg Tablet Take 10 mg by mouth daily. Allergies: Allergies Allergen Reactions ??? 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 Has a dog and . Vitals: Last value Range last 24 hrs Temperature Temp: [36.4 ??C (97.6 ??F)-36.5 ??C (97.7 ??F)] Heart Rate Heart Rate: [66-68] Blood Pressure BP: (136-174)/(54-86) Respiratory Rate Resp: [16-18] SpO2 SpO2: [93 %-97 %] Examination: Pleasant well appearing female in no distress. Right sided chest port in place. Right sided Pleurx drain in place. Lungs clear on left and in upper right lung boo, diminished right base and mid boo. Cor regular no murmurs. No edema. Access: Port, PIV Laboratory: CBC: Recent Labs 03/19/2172603/13/21 0927 02/24/21 0846 WBC 3.4* 4.2 4.7 HGB 11.2* 12.1 12.7 PLATELET 156 94* 155 Chemistry: Recent Labs 03/13/21 0927 02/24/21 0846 01/13/21 0000 10/17/20 1041 NA 142 140 138 139 K 4.3 3.9 4.2 4.2 CL 106 103 99 103 CO2 27 27 -- 27 BUN 19* 18 22 21* CREATININE 0.97 0.98 0.90 0.80 GLUCOSE 105 107 122 98 Recent Labs 03/13/21 0927 02/24/21 0846 01/13/21 0000 CALCIUM 9.4 9.5 9.5 LFT's: Recent Labs 03/13/21 0927 02/24/21 0846 01/13/21 0000 BILITOT 0.6 0.5 0.6 ALBUMIN 4.2 4.5 4.7 ALKPHOS 95 97 88 ALT 16 15 16 AST 22 22 24 Microbiology: Surveillance SARS-CoV2 pending Imaging and Diagnostics: IR Pleurx Drain Placement Impression: Ultrasound-guided tunneled right chest drain implant with removal of 1600 ml pale yellowpleural fluid. Assessment and Plan: 70 year old female with follicular lymphoma now status post right sided Pleurx for presumed malignant effusion. Will observe overnight, anticipate discharge tomorrow once drainage complete and Pleurx teaching done. #Malignant pleural effusion, unilateral, status post Pleurx placement #Follicular lymphoma --Follow cell count and flow / malignant cell screen; note prior thora sample 02/24 was positive --Drainage of pleural fluid per expert thoracic surgery recommendations, at most 800 mL / 3 hours --Repeat CXR PA/Lateral at 0630 tomorrow #Chronic conditions Blood pressure: continue diltiazem, hold lisinopril-HCTZ (takes in morning, can take on return home tomorrow and not on formulary) Hypothyroid: home levothyroxine Bladder: has not picked up tolterodine prescription yet so not ordered Lipids: home atorvastatin Disposition: Observe overnight, home tomorrow Code Status: Full Errol Wade MD [facility] Medicine Pager [phone] I certify the patient requires observation care documented in this encounter Miscellaneous Notes Plan of Care - Shanita Palomino RN - 03/21/2021 12:41 PM EDT OUTCOME EVALUATION NOTE: OUTCOME SUMMARY: Pt alert and oriented x4. VS as charted, on RA, endorsing less SOB since pleurx placement. C/o discomfort at pleurex site, rating 3-4/10, PRN tylenol given w/ good effect. Pt able to make needs known. Calm, cooperative, and pleasant throughout shift. Ambulating SBA without issue.Meds given per MAR order. Pleurex dressing c/d/I, currently hooked to [facility] chest tube at -10 mmHg sxn, w/ 220 mL serous output. PLAN MOVING FORWARD: - Pain management - Pleurex - I&Os - D/C planning INDIVIDUALIZED FALL PREVENTION INTERVENTIONS: Patient-specific fall risk factors per assessment: [current deficits]: Unfamiliar environment, generalized weakness, lines/tubes/drains, pain Assistance [level of assistance required for transfers and ambulation]: SBA Supervision [direct monitoring required during toileting and ADLs]: eyes on Surveillance [continuous indirect monitoring]: Purposeful rounding, call light in reach, room near nurses station, bed alarm, masimo Patient-specific fall prevention interventions for sensory deficits provided, if applicable: N/a CPG GOAL OUTCOME EVALUATION: Plan of Care - Yecenia Alford RN - 03/21/2021 1:34 AM EDT OUTCOME EVALUATION NOTE: OUTCOME SUMMARY: VS as charted. Eyes closed between care. Pain well controlled on current regimen, utilizing ice pack& pillow supports in addition w/ good effect. See I/O as charted; pleur-x draining serous output, drained/clamped Q 3hrs per orders, output slowing overnight. Reached out to CT surg #[id number] MD Vela for order clarification d/t slowing drainage, MD made aware of above, left unclamped as of 134. MD at bedside as of 244, per MD instruction placed to -10 low continuous suction, orders pending. Ptappears in NAD, sats mid 90s on RA. Making needs known, participating in plan of care. Will CTM, notify team of changes. PLAN MOVING FORWARD: F/u chest tube mgmt, pending cxr 0630AM Pulmonary hygiene D/C planning as appropriate INDIVIDUALIZED FALL PREVENTION INTERVENTIONS: Patient-specific fall risk factors per assessment: [current deficits]: New chest tube drain Assistance [level of assistance required for transfers and ambulation]: SBA for drain mgmt Supervision [direct monitoring required during toileting and ADLs]: hands on Surveillance [continuous indirect monitoring]: Purposeful rounding, bed alarm Patient-specific fall prevention interventions for sensory deficits provided, if applicable: [X] N/A CPG GOAL OUTCOME EVALUATION: documented in this encounter Plan of Treatment Upcoming Encounters Date Type Specialty Care Team Description 06/16/2022 Office Visit Hematology and Oncology Jackie Dillon, [facility] HEMATOLOGY/[facility] DEPT. [place], [place] [address] (Wo rk) 06/16/2022 Infusion Hematology and Oncology documented as of this encounter Procedures Procedure Name Priority Date/Time Associated Diagnosis Comme nts XR CHEST PA AND Timed 03/21/2021 6:19 AM Result s for this LATERAL EDT procedure are i n the results section. RAPID COVID-19 PCR Routine 03/20/2021 5:41 PM Res ults for this ([facility]) EDT procedure are in the results section. documented in this encounter Results XR Chest PA & Lateral (Generic) (03/21/2021 6:19 AM EDT) Anatomical Region Laterality Modality Chest N/A Digital Radiography Specimen (Source) Anatomical Location Collection Method / Collectio n Time Received Time / Laterality Volume Impressions 03/21/2021 9:59 AM EDT Trace right chest wall subcutaneous emphysema with trace right pneumothorax status post interval placement of tunnel ed right multi sidehole pleural catheter. Near complete decompression of right ple ural effusion. Thank you for letting us participate in the care of this patient. ??If you are a health care provider and have any questi ons regarding this report, please contact the number below. ??For patients who have questions please contact the health grounds caretaker that requested your imaging first. ? Narrative 03/21/2021 9:59 AM EDT EXAMINATION: XR CHEST PA AND LATERAL (GENERIC) CLINICAL HISTORY: Monitor R sided effusi on for interval change TECHNIQUE: PA and lateral views of the chest COMPARISON: February 24, 2021 FINDINGS: Interval placement of right subclavian M ediPort catheter, intact, tip at SVC. Interval placement of tunneled right mul ti sidehole pleural drain, satisfactorily positioned with near comp lete decompression of right pleural effusion. Trace right pneumothorax. Card iac, mediastinal and hilar contours are normal. Severe left glenohumeral degener ative changes. Trace right chest wall subcutaneous emphysema. Procedure Note Adelita Byers MD - 03/21/2021 EXAMINATION: XR CHEST PA AND LATERAL (scoo mobility NERIC) CLINICAL HISTORY: Monitor R sided effusi on for interval change TECHNIQUE: PA and lateral views of the chest COMPARISON: February 24, 2021 FINDINGS: Interval placement of right subclavian M ediPort catheter, intact, tip at SVC. Interval placement of tunneled right mul ti sidehole pleural drain, satisfactorily positioned with near comp lete decompression of right pleural effusion. Trace right pneumothorax. Card iac, mediastinal and hilar contours are normal. Severe left glenohumeral degener ative changes. Trace right chest wall subcutaneous emphysema. IMPRESSION Trace right chest wall subcutaneous emph ysema with trace right pneumothorax status post interval placement of tunnel ed right multi sidehole pleural catheter. Near complete decompression of right ple ural effusion. Thank you for letting us participate in the care of this patient. If you are a health care provider and have any questi ons regarding this report, please contact the number below. For patients w ho have questions please contact the health grounds caretaker that requested your imaging first. Errol Wade MD IMG DX ORDERABLES COVID-19 PCR (03/20/2021 5:41 PM EDT) [facility] Method Time Signature SARS-CoV-2 Not Detected Not Detected MAU RNA PCR [facility] Comment: This result should be interpreted in com bination with the clinical observations, patient history and epidem iological information. For testing of asymptomatic individuals, assay performa nce characteristics and clinical utility have not been evaluated. Testing for SARS-CoV-2 (Severe acute respiratory syndrome coronavirus 2, form erly known as 2018 novel coronavirus or 2019-nCoV) to aid in the diagnosis of CO VID-19 is performed using the Simplexa COVID-19 Direct Assay by [employer] alan[employer] as authorized by the FDA issued Emergency Use Authorization (EUA). This assay is intended for In-vitro Diagnostic (IVD) use with nasopharyngeal swabs collected from individuals meeting the CDC criteria for testing. Th e assay is performed based on the instructions for use and additional guid ance provided by the FDA. Testing is performed in the Microbiology Laboratory within the Department of Pathology and Laboratory Medicine at [facility], certified under the Clinical Laboratory Improvement Amendmen ts of 1988 (CLIA), 42 U.S.C. section 263a, to perform high complexity tests. Assay performance has been verified according to clinical laboratory regulat ory requirements. Test results are provided above. A resul t of Not Detected indicates that the viral RNA target is not present but does not preclude SARS-CoV-2 infection. False negative results may occur if a sp ecimen is improperly collected, transported or handled; if amplification inhibitors are present; or if inadequate numbers of viral particles ar e present in the specimen. A result of Detected suggests a current or recent infection and the patient is presumed to be infected. Positive and negative pr edictive values for this test are highly dependent on disease prevalence. A result of Invalid indicates the inability to conclusively determine the presence or absence of SARS-CoV-2 RNA in the sample which can be due to a vari ety of factors. Recollection is recommended in the case of an invalid re sult. CDC COVID-19 criteria for testing on hum an specimens and clinical management guidance information are available at [facility] CDC Coronavirus Disease 2019 (COVID-19) webpage under Information fo r Healthcare Professionals (https://www.cdc.gov/coronavirus/2019-nc ov/hcp/index.html). Additional information about this and ot her EUA tests can be found in provider and patient fact sheets at the following FDA website: https://www.fda.gov/medical-devices/kdazwmwgwxo-ngzuczb-3472-hmzhd-60-qparkmpiq- kpt-ctpbpmafuajtul-wieacxh-devices/idgqv-omiqbtvqefj-kfhw SARS-CoV-2 Source [employer] Swab [facility] Specimen (Source) Anatomical Collection Method Collection Time Re ceived Time Location / / Volume Laterality Nasopharyngeal Swab 03/20/2021 5:41 03/20 PM EDT 6:30 PM EDT Comment: Symptoms->Surveillance Resulting Agency Comment Spec In Lab rErol Wade MD MICROBIOLOGY - GENERAL ORDER [facility] Performing Organization Address City/State/[place] [address] documented in this encounter Visit Diagnoses Diagnosis Pleural effusion - Primary Unspecified pleural effusion 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 documented in this encounter Admitting Diagnoses Diagnosis Pleural effusion Unspecified pleural effusion documented in this encounter Administered Medications Inactive Administered Medications - up to 3 most recent administrations Medication Order MAR Action Action Date Dose Rate Site acetaminophen (Tylenol) tablet 650 Given 03/21/2021 8:26 AM EDT 650 mg mg 650 mg, Oral, EVERY 4 HOURS PRN, Starting on Tue03/20/21 at 1657, Until 03/21/21 at 1728, Pain, Maximum dose of acetaminophen is 4000 mg from all sources in 24 hours. When ordered for pain, acetaminophen should be given even when other ordered pain medications are indicated. , Routine Given 03/21/2021 1:27 AM EDT 650 mg Given 03/20/2021 7:46 PM EDT 650 mg atorvastatin (Lipitor) tablet 10 mg Given 03/20/2021 6:03 PM EDT 10 mg 10 mg, Oral, EVERY EVENING, First dose on Tue03/20/21 at 1745, Until Discontinued, Routine dilTIAZem CD (Cardizem CD) capsule 240 m g Given 03/21/2021 8:27 AM EDT 240 mg 240 mg, Oral, DAILY, First dose on Tue03/20/21 at 1745, Until Discontinued, DO NOT CRUSH OR OPEN Hold for HR < 60 SBP < 100, Routine Given 03/20/2021 6:03 PM EDT 240 mg levothyroxine (Synthroid) tablet 75 mcg Given 03/21/2021 6:34 AM EDT 75 mcg 75 mcg, Oral, EVERY MORNING, First dose on Tue03/21/21 at 0600, Until Discontinued, Routine ondansetron (pf) (Zofran) (2 mg/mL) inje ction 4-8 mg 4-8 mg, Intravenous, EVERY 8 HOURS PRN, Starting on Tue03/20/21 at 1657, Until 03/21/21 at 1728, Nausea, Start with 4mg and if ineffective in 30 minutes, give an additional 4mg If multiple antiemetic s are ordered, give ondansetron first. ondansetron (Zofran) tablet 4-8 mg 4-8 mg, Oral, EVERY 8 HOURS PRN, Startin g on Tue03/20/21 at 1657, Until 03/21/21 at 1728, Nausea, Vomiting, If multiple antiemetics are ordered, use ondansetron first. PO Preferred. If patient unable to take PO, may give IV if ordered. Start with 4mg and if ineffective in 45 minutes, give an add itional 4mg. If unable to take PO, may give IV., Routine sodium chloride 0.9 % (flush) (BD PosiFlush Given 03/21/2021 8:2 8 AM EDT 5 mLs Normal Saline 0.9) flush 5 mL 5 mL, Intravenous, 2 TIMES DAILY, First dose on Tue03/20/21 at 2100, Until Discontinued, Routine Given 03/20/2021 8:59 PM EDT 5 mLs venlafaxine (Effexor) tablet 37.5 mg Given 03/20/2021 8:58 PM EDT 37.5 mg 37.5 mg, Oral, NIGHTLY, First dose on Tue03/20/21 at 2100, Until Discontinued, Routine documented in this encounter Active and Recently Administered Medications Times are shown in EDT. Scheduled Medication Order 03/19/2021 03/20/2021 03/21/2021 atorvastatin (Lipitor) tablet 10 mg 1802 (Given - Provider: Lelia Craig RN) 10 mg, Oral, EVERY EVENING, First dose o n Tue03/20/21 at 1745, Until Discontinued, Routine dilTIAZem CD (Cardizem CD) capsule 240 mg 1802 (Given - Provider: Lelia Craig RN) 08 (Given - Provider: Shanita Palomino, RN) 240 mg, Oral, DAILY, First dose on Tue at 1745, Until Discontinued, DO NOT CRUSH OR OPEN Hold for HR < 60 SBP < 100, Routine levothyroxine (Synthroid) tablet 75 mcg 633 (Given - Provider: Yecenia Alford, MARI) 75 mcg, Oral, EVERY MORNING, First dose on Tue03/21/21 at 0600, Until Discontinued, Routine sodium chloride 0.9 % (flush) (BD PosiFlush Normal Saline 0. 9) flush 5 mL 2058 (Given - Provider: Yecenia Alford, MARI) 827 (Given - Provider: Shanita Palomino, RN) 5 mL, Intravenous, 2 TIMES DAILY, First dose on Tue03/20/21 at 2100, Until Discontinued, Routine venlafaxine (Effexor) tablet 37.5 mg (Given - Provider: Yecenia Alford, RN) 37.5 mg, Oral, NIGHTLY, First dose on Fr i 03/20/21 at 2100, Until Discontinued, Routine PRN Medication Order 03/19/2021 03/20/2021 03/21/2021 acetaminophen (Tylenol) tablet 650 mg 19 46 (Given - Provider: Yecenia Alford, RN) 0127 (Given - Provider: Yecenia Cazares RN)0826 (Given - Provider: Shanita Palomino RN) 650 mg, Oral, EVERY 4 HOURS PRN, Startin g on Tue03/20/21 at 1657, Until 03/21/21 at 1728, Pain, Maximum dose of acetaminophen is 4000 mg from all sources in 24 hours. When ordered for pain, acetamino phen should be given even when other ord ered pain medications are indicated. , Routine lidocaine (Xylocaine) 1% (10 mg/mL) injection 3 mg 3 mg (0.3 mL), Subcutaneous, ONCE PRN, 1 dose, Starting on Tue03/20/21 at 1657, Until 03/21/21 at 1728, for discomfort with PIV insertion, Routine ondansetron (pf) (Zofran) (2 mg/mL) injection 4-8 mg(Linked Grou p 1) 4-8 mg, Intravenous, EVERY 8 HOURS PRN, Starting on Tue03/20/21 at 1657, Until 03/21/21 at 1728, Nausea, Start with 4mg and if ineffective in 30 minutes, give an additional 4mg If multiple antiemetics are ordered, give ondansetron first. ondansetron (Zofran) tablet 4-8 mg(Linked Group 1) 4-8 mg, Oral, EVERY 8 HOURS PRN, Startin g on Tue03/20/21 at 1657, Until 03/21/21 at 1728, Nausea, Vomiting, If multiple antiemetics are ordered, use ondansetron first. PO Preferred. If patient un able to take PO, may give IV if ordered. Start with 4mg and if ineffective in 45 minutes, give an additional 4mg. If unable to take PO, may give IV., Routine sodium chloride 0.9 % (flush) (BD PosiFlush Normal Saline 0.9) f lush 5-20 mL 5-20 mL, Intravenous, EVERY 1 MIN PRN, S tarting on Tue03/20/21 at 1657, Until 03/21/21 at 1728, flush, Flush pertains to all indwelling lines. Flush per protocol found in the job aid using the link provided on this medication record., Routine Linked Groups Order Group 1: ondansetron (Zofran) tablet 4-8 mgJump to med 4-8 mg, Oral, EVERY 8 HOURS PRN, Startin g on Tue03/20/21 at 1657, Until 03/21/21 at 1728, Nausea, Vomiting
If multiple antiemetics are ordered, use ondansetron first. PO Prefer red. If patient unable to take PO, may g woo IV if ordered. Start with 4mg and if ineffective in 45 minutes, give an additional 4mg. If unable to take PO, may give IV.
Routine Or ondansetron (pf) (Zofran) (2 mg/mL) injection 4-8 mgJump to med 4-8 mg, Intravenous, EVERY 8 HOURS PRN, Starting on Tue03/20/21 at 1657, Until 03/21/21 at 1728, Nausea
Start with 4mg and if ineffective in 30 minutes, give an additional 4mg If multiple antiemetics are ordered, give ondansetron first.
documented in this encounter
--- OUTSIDE RECORDS SUMMARY | 2022-05-21 01:02 | XMS_ITS | Encounter Summary ---
:1950 Author Organization [facility] [place] [address] Care Team Providers Name Role Phone Unavailable Primary Care Provider Unavailable Encounter Details Date Type Department Care Team Description 03/23/2021 Telephone Thoracic Surgery [place] [facility] [place] Acosta, [place] [address] Social History Tobacco Use Types Packs/Day Years [...] Telephone Encounter - Marry Acosta RN - 03/23/2021 12:34 PM EDT Patient is S/P IR chest tube placement 03/20/2021 for Acute recurrent pleural effusion. Brian had previously has thoracentesis, but referred to thoracic surgery last week for better management going forward. She states that Things are going well. Denies S/S of infection and is self sufficient at draining. We did discuss options for alternative dressing changes so that she is not leaving her site exposed after drainage. is assisting at night , but is not available during the day. They will protect the site with gauze and tegaderm leaving the tail wrapped in it's own gauze and securing it where she can reach it. 9/11 PM 100mls 9/12 AM 200mls PM 75mls 13 AM 250mls Drainage is straw colored with some bits of fibrin. Brian is doing well symptom gong. Shortness of breath has mostly resolved and she has a very pleasant affect during our call. I will plan to check in on her in a week and she is aware to call with any issues. documented in this encounter Plan of Treatment Upcoming Encounters Date Type Specialty Care Team Description 06/16/2022 Office Visit Hematology and Oncology Jackie Dillon, [facility] HEMATOLOG[facility] DEPT. [place], [place] [address] (Wo rk) 06/16/2022 Infusion Hematology and Oncology documented as of this encounter Visit Diagnoses Not on filedocumented in this encounter
--- OUTSIDE RECORDS SUMMARY | 2022-05-21 01:02 | XMS_ITS | Encounter Summary ---
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 Please provide #60 500mls PleurX drain kits (#[id number] quantity 6 cases at 10 bottles each) every30 days. Please ship to patient's home. Sukhjinder Burtno MD 04/29/2021 Telephone Encounter - Marry Acosta RN - 04/28/2021 9:15 AM EDT Patient is S/P IR chest tube placement 03/20/2021 for Acute recurrent pleural effusion. ?? Phone call from Brianoli patterson to report that [facility] is discharging her from service. I have instructed her to have the RN call when he arrives to discuss getting bottles set up. She is still draining about 500mls daily, BID drainage. 300-350mls in the AM and then 100-200mls in the PM. She is very comfortable with the procedure and is not having any issues. [facility] Wanting to discharge and need PleurX. No phone call received from VNA nurse at [facility] and they have now discharged the patient. Will send script to [facility] and update patient as we get updated. documented in this encounter Plan of Treatment Upcoming Encounters Date Type Specialty Care Team Description 06/16/2022 Office Visit Hematology and Oncology Jackie Dillon, ROULA [facility] HEMATOLOGY/[facility] DEPT. [place], [place] [address] (Wo rk) 06/16/2022 Infusion Hematology and Oncology documented as of this encounter Visit Diagnoses Not on filedocumented in this encounter
--- OUTSIDE RECORDS SUMMARY | 2022-05-21 01:02 | XMS_ITS | Encounter Summary ---
:1950 Author Organization [facility] [place] [address] Care Team Providers Name Role Phone Unavailable Primary Care Provider Unavailable Encounter Details Date Type Department Care Team Description 06/17/2021 Telephone Thoracic Surgery [place] [facility] Marry [place]osta, [place] [address] Social History Tobacco Use Types Packs/Day [...] Telephone Encounter - Marry Acosta RN - 06/17/2021 10:47 AM EST Message today from Brian's DIGITAL MUSIC INSTRUCTOR at [facility] Hem/Onc. Hi Marry - I have Brian in the office - she is due for chemo today but her Pleurex is causing discomfort - getting red and has a bit of drainage. I am going to hold chemo and wondering if she can get in to be seen. I do not have capacity to do culture here in the office. I was also going to start some oral ABX - but wanted to check with your team first. thanks for your thoughts Reviewed photo and assessment with Dr. Silver. Brian is feeling well. Alfonso has been about 100-200mls daily. She does report that her drainage color is still straw, but does seem to be a bit thicker. Dr. Silver suggested 10 days of Augmentin 875/125. Brian will phone our office if things do not improve. documented in this encounter Plan of Treatment Upcoming Encounters Date Type Specialty Care Team Description 06/16/2022 Office Visit Hematology and Oncology Jackie Dillon, DIGITAL MUSIC INSTRUCTOR [facility] HEMATOLOGY/[facility] DEPT. [place], [place] [address] (Wo rk) 06/16/2022 Infusion Hematology and Oncology documented as of this encounter Visit Diagnoses Not on filedocumented in this encounter
--- OUTSIDE RECORDS SUMMARY | 2022-05-21 01:02 | XMS_ITS | Encounter Summary ---
:1950 Author Organization [facility] [place] [address] Care Team Providers Name Role Phone Unavailable Primary Care Provider Unavailable Reason for Visit Reason Onset Date Comments Follow-up 06/01/2021 Encounter Details Date Type Department Care Team Description 06/01/2021 Telephone Hematology/Oncology at Izzy Del Valle RN Follow-up [place] [phone] Social History Tobacco Use Types Packs/Day [...] Telephone Encounter - Izzy Mayer RN - 06/01/2021 12:21 PM EST Pt ending going to urgent care over the weekend and was diagnosed with sinus infection and ear infections, she is covid negative. They started her on Augmentin 875/125 twice a day for 7 days. She is a bit nauseated by it, told her she can take compazine to counter act it and make sure she takes augmentin with food. She is pushing fluids and resting. Providers updated. documented in this encounter Plan of Treatment Upcoming Encounters Date Type Specialty Care Team Description 06/16/2022 Office Visit Hematology and Oncology Jackie Dillon, GLASS CUT OFF SUPERVISOR [facility] ER HEMATOLOGY/[facility] DEPT. [place], [place] [address] (Wo rk) 06/16/2022 Infusion Hematology and Oncology documented as of this encounter Visit Diagnoses Not on filedocumented in this encounter
--- OUTSIDE RECORDS SUMMARY | 2022-05-21 01:02 | XMS_ITS | Encounter Summary ---
:1950 Author Organization [facility] [place] [address] Care Team Providers Name Role Phone Unavailable Primary Care Provider Unavailable Encounter Details Date Type Department Care Team Description 04/08/2021 Telephone Thoracic Surgery at [facility] Marry [place]osta, [place] [address] Social History Tobacco Use Types Packs/Day [...] Telephone Encounter - Marry Acosta RN - 04/08/2021 12:44 PM EDT Patient is S/P IR chest tube placement 03/20/2021 for Acute recurrent pleural effusion. Phone call to Brian patterson to check in on totals and discuss next steps. Left message to call back. documented in this encounter Plan of Treatment Upcoming Encounters Date Type Specialty Care Team Description 06/16/2022 Office Visit Hematology and Oncology Jackie Dillon, NUT TAPPER [facility] HEMATOLOGY/[facility] DEPT. [place], [place] [address] (Wo rk) 06/16/2022 Infusion Hematology and Oncology documented as of this encounter Visit Diagnoses Not on filedocumented in this encounter
--- OUTSIDE RECORDS SUMMARY | 2022-05-21 01:02 | XMS_ITS | Encounter Summary ---
:1950 Author Organization [facility] [place] [address] Care Team Providers Name Role Phone Unavailable Primary Care Provider Unavailable Reason for Visit Reason Onset Date Comments Questions 05/27/2021 Encounter Details Date Type Department Care Team Description 05/27/20[facility] [address] [place] [phone] Social History Tobacco Use Types [...] this encounter Miscellaneous Notes Telephone Encounter - Gilma Beck RN - 05/27/2021 1:06 PM EST Pt had cycle C2 BR with Neulasta OnPRO on 05/20-05/21. Reviewed with Venus Mendieta APRN who advises getting COVID tested. Pt denies any exposure and will go this afternoon for testing.. Will touch base with her tomorrow but is advised to call sooner if symptoms worsen or she develops a fever 100.4F or greater. She has the on-call [facility] number as well. ----- Message from Silvia Wood sent at 05/27/2021 1:03 PM EST ----- Brian called to ask if it is normal for her to still feel sick from her treatment on Tuesday or if we think she should go get tested for Covid given the following symptoms. She said she feels like she's getting a cold, has congestion, aches/tingles/chills throughout the day, fatigue, and feels like her vision is delayed (says she'll move her eyes from object to object andthinks it takes a second for her vision to catch up?).. She said she is not running a fever nor is she nauseous but wants to know if this is normal for her treatment, or if not whether we think she should get tested for COVID. If someone could please give her a call to discuss at [phone] she would appreciate it. Thanks documented in this encounter Plan of Treatment Upcoming Encounters Date Type Specialty Care Team Description 06/16/2022 Office Visit Hematology and Oncology Jackie Dillon, DATAPOWER DEVELOPER [facility] HEMATOLOGY/[facility] DEPT. [place], [place] [address] (Wo rk) 06/16/2022 Infusion Hematology and Oncology documented as of this encounter Visit Diagnoses Not on filedocumented in this encounter
--- OUTSIDE RECORDS SUMMARY | 2022-05-21 01:02 | XMS_ITS | Encounter Summary ---
:1950 Author Organization [facility] [place] [address] Care Team Providers Name Role Phone Unavailable Primary Care Provider Unavailable Encounter Details Date Type Department Care Team Description 05/29/2021 Telephone Thoracic Surgery at [facility] Marry Acosta, [place] [address] Social History Tobacco Use Types Packs/Day Years [...] Telephone Encounter - Marry Acosta RN - 05/29/2021 1:49 PM EST Patient is S/P IR chest tube placement 03/20/2021 for Acute recurrent pleural effusion. ?? Phone call to Brian patterson to check in on totals. Left message to call back [phone] 05/29/2021 Left message to call back [phone] 06/01/2021 Phone call from patient 06/02/[phone]. She is recovering from a sinus infection requiring antibiotics. Drainage has been less than 100mls daily over the last 2 weeks. As discussed previously, we will tryevery other day drainage for a week and see if that helps reduce output. Will check in early next week. She will call with any issues. documented in this encounter Plan of Treatment Upcoming Encounters Date Type Specialty Care Team Description 06/16/2022 Office Visit Hematology and Oncology Jackie Dillon, DIRECTOR OF OFFICIATING [facility] HEMATOLOGY/[facility] DEPT. [place], [place] [address] (Wo rk) 06/16/2022 Infusion Hematology and Oncology documented as of this encounter Visit Diagnoses Not on filedocumented in this encounter
--- OUTSIDE RECORDS SUMMARY | 2022-05-21 01:02 | XMS_ITS | Encounter Summary ---
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 [address] Referral ID Status Reason Start Date Expiration Date Visits Requ ested Visits Authorized [id number] Closed 04/22/2021 12/18/2021 18 18 Encounter Details Date Type Department Care Team Description 05/21/2021 Infusion Hematology Oncology at [facility] rico 2 follicular lymphoma [facility] of lymph nodes of [address] [phone] Social History Tobacco Use Types Packs/Day Years [...] Sign Reading Time Taken Comments Blood Pressure 143/57 05/21/2021 9:02 AM EST Pulse 82 05/21/2021 9:02 AM EST Temperature 36.4 ??C (97.5 ??F) 05/21/2021 9:02 AM EST Respiratory Rate 18 05/21/2021 9:02 AM EST Oxygen Saturation 100% 05/21/2021 9:02 AM EST Inhaled Oxygen Concentration - - Weight 87.1 kg (192 lb) 05/21/2021 9:02 AM EST Height 160 cm (5' 3) 05/21/2021 9:02 AM EST Body Mass Index 34.01 05/21/2021 9:02 AM EST documented in this encounter Progress Gilma Guadalupe RN - 05/21/2021 9:00 AM EST INFUSION THERAPY ADMINISTRATION NOTES DIAGNOSIS: follicular lymphoma CYCLE #2: Day 2 REASON FOR VISIT: Bendamustine, Neulasta OnPRO SUBJECTIVE Brian Bliss offers no complaints. OBJECTIVE LAB DATA: Done 05/20/21 at [facility] for treatment. IV ACCESS: Mediport Pre administration: [...] Office Visit Hematology and Oncology Jackie Dillon, PROJECT SUPERINTENDENT [facility] HEM[facility] DEPT. [place], [place] [address] (Wo rk) 06/16/2022 Infusion Hematology and Oncology documented as of this encounter Visit Diagnoses Diagnosis 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 documented in this encounter Administered Medications Inactive Administered Medications - up to 3 most recent administrations Medication Order MAR Action Action Date Dose Rate Site bendamustine (Bendeka) 173 mg New Bag 05/21/2021 9:23 AM 173 mg 341.5 mL/hr in sodium chloride 0.9% 56.92 EST mL infusion 173 mg (rounded from 172.8 mg = 90 mg/m2/dose ? 1.92 m2 Treatment Plan BSA from Recorded weight), Intravenous, ONCE, 1 dose, On Yocasta 05/21/21 at 1000, Administer over 10 Minutes, The resulting final concentration of bendamustine in the infusion bag should be between 1.85 - 5.6 mg/mL. Warning Vesicant/Irritant Medication , This agent is restricted to outpatient use. Is this drug being given as an outpatient? Yes dexamethasone (Decadron) tablet 10 mg Given 05/21/2021 9:10 AM EST 10 mg 10 mg, Oral, ONCE, 1 dose, On Yocasta 05/21/21 at 0900, Administer prior to chemotherapy, Routine heparin (pf) (porcine) (100 units/mL) Given 05/21/2021 9:[address] 500 Units flush 5 mL syringe 500 Units 500 Units, Intravenous, ONCE PRN, Starting on Yocasta 05/21/21 at 0810, Until Yocasta 05/21/21 at 1143, Line Care, Refer to Intravenous (IV) Procedure: Accessing Implanted Vascular Access Devices (664) procedure and/or Intravenous (IV) Job Aid: Adult Flushing & Catheter Care (6549) job aid for additional information regarding guidelines and administration., Routine pegfilgrastim (Neulasta Onpro) (6 Given 05/21/2021 9:29 AM EST 6 mg Right Arm mg/0.6 mL) injection kit 6 mg 6 mg, Subcutaneous, ONCE, 1 dose, On Yocasta 05/21/21 at 1000, Allow the prefilled syringe co-packaged with the on-body injector to reach room temperature at least 30 minutes prior to administration., Routine, This agent is restricted to outpatient use. Is this drug being given as an outpatient? Yes sodium chloride 0.9 % (flush) (BD PosiFlush Given 05/21/2021 9:39 AM EST 20 mLs Normal Saline 0.9) flush 5-20 mL 5-20 mL, Intravenous, EVERY 1 MIN PRN, Starting on Yocasta 05/21/21 at 0810, Until Yocasta 05/21/21 at 1143, Line Care, Flush pertains to all indwelling lines. Flush per protocol found in the job aid using the link provided on this medication record. Refer to Intravenous (IV) Job Aid: Adult Flushing & Catheter Care (4457) job aid for additional information regarding guidelines and administration., Routine sodium chloride 0.9% infusion New Bag 05/21/2021 9:12 AM EST 150 mL/hr 150 mL/hr 150 mL/hr, Intravenous, CONTINUOUS, Starting on Yocasta 05/21/21 at 0900, Until Yocasta 05/21/21 at 1143 documented in this encounter
--- OUTSIDE RECORDS SUMMARY | 2022-05-21 01:02 | XMS_ITS | Encounter Summary ---
:1950 Author Organization [facility] [place] [address] Care Team Providers Name Role Phone Unavailable Primary Care Provider Unavailable Encounter Details Date Type Department Care Team Description 05/11/2021 Telephone Thoracic Surgery at [facility] Marry Acosta, [place] [address] Social History Tobacco Use Types Packs/Day [...] Telephone Encounter - Marry Acosta RN - 05/11/2021 9:08 AM EDT ----- Message from Bernie Almodovar RN sent at 05/07/2021 10:53 AM EDT ----- Regarding: RE: PleurX Supplies I believe that Laurie Diaz will be her best bet, as [facility] does not deal with her insurance. They do take a little bit of time, but she may have some type of co-pay.... Nothing that we can do. Thanks, Noemi ----- Message ----- From: Brian Norris Sent: 05/07/2021 10:39 AM EDT To: Bernie Almodovar, RN, Marry Acosta, RN Subject: PleurX Supplies Ms. Bliss called about her PleurX supplies. She got calls from 2 companies regarding the order. She's not sure where she should be getting these from. [employer] left her a message saying they have shippeda 30 day supply but her insurance has not yet approved them so she may be getting a bill. She's a bit concerned about this. She currently has a 7 day supply so we have a bit of time to deal with this. I told her I'd see what I could find out and we'd give her a call back. Phone call to Brian. Draining QD and totals have been 05/07 - 150mls 05/08 - 200mls 05/09 - 250mls 05/10 - 150mls 05/11 - 300mls straw colored like sort of cloudy apple juice We have arranged supplies with [employer] and she is expecting a shipment. We will continue with once daily drainage. She will call if she has less than 100mls for 2-3 days in a row. Next treatments are 05/20 and 05/21. Slight irritation at the tube site. She reports red, but not infected. She will apply a thin coat of bacitracin and I will send her some additional sterile drain sponges for comfort/padding. She knows to call with any issues. documented in this encounter Plan of Treatment Upcoming Encounters Date Type Specialty Care Team Description 06/16/2022 Office Visit Hematology and Oncology Jackie Dillon, SUPPORT COORDINATOR [facility] HEMATOLOG[facility] DEPT. [place], [place] [address] (Wo rk) 06/16/2022 Infusion Hematology and Oncology documented as of this encounter Visit Diagnoses Not on filedocumented in this encounter
--- OUTSIDE RECORDS SUMMARY | 2022-05-21 01:02 | XMS_ITS | Encounter Summary ---
:1950 Author Organization [facility] [place] [address] Care Team Providers Name Role Phone Unavailable Primary Care Provider Unavailable Encounter Details Date Type Department Care Team Description 04/14/2021 Telephone Thoracic Surgery at [facility] Marry [place]osta, [place] [phone] Social History Tobacco Use Types Packs/Day [...] Telephone Encounter - Marry Acosta RN - 04/14/2021 11:18 AM EDT Patient is S/P IR chest tube placement 03/20/2021 for Acute recurrent pleural effusion. ?? Phone call to Brian today to check in on totals and make sure that she has received PleurX bottles. First issue is resolved, she has bottles. She is still draining over 500mls daily, BID drainage. She is very comfortable with the procedure and is not having any issues. She will continue BID and we will check in the beginning of next week. documented in this encounter Plan of Treatment Upcoming Encounters Date Type Specialty Care Team Description 06/16/2022 Office Visit Hematology and Oncology Jackie Dillon, POULTRY PINNER [facility] HEMATOLOGY/[facility] DEPT. [place], [place] [address] (Wo rk) 06/16/2022 Infusion Hematology and Oncology documented as of this encounter Visit Diagnoses Not on filedocumented in this encounter
--- OUTSIDE RECORDS SUMMARY | 2022-05-21 01:02 | XMS_ITS | Encounter Summary ---
:1950 Author Organization [facility] [place] [address] Care Team Providers Name Role Phone Unavailable Primary Care Provider Unavailable Encounter Details Date Type Department Care Team Description 05/06/2021 Office Visit Hematology/Oncology Mansi Allen, Johanny e 2 follicular lymphoma of lymph nodes of multiple regions; at [facility] USER EXPERIENCE TEAM LEAD Pleural effusion [address] [place], [place] MEDICAL [place]OG [place] [address] [place], [place] [phone] (Wo rk) Social History Tobacco Use Types [...] Sign Reading Time Taken Comments Blood Pressure 124/65 05/06/2021 9:47 AM EDT Pulse 76 05/06/2021 9:47 AM EDT Temperature 36.2 ??C (97.2 ??F) 05/06/2021 9:47 AM EDT Respiratory Rate 16 05/06/2021 9:47 AM EDT Oxygen Saturation 100% 05/06/2021 9:47 AM EDT Inhaled Oxygen Concentration - - Weight 83.9 kg (185 lb) 05/06/2021 9:47 AM EDT Height 160 cm (5' 2.99) 05/06/2021 9:47 AM EDT Body Mass Index 32.78 05/06/2021 9:47 AM EDT documented in this encounter Progress Notes Mansi Allen, USER EXPERIENCE TEAM LEAD - 05/06/2021 10:00 AM EDT Hematology & Medical Oncology [address] [phone] Brian is here today for mid- cycle check post C1 Rituxan/Bendamustine for NHL. Assessment/Plan: Brian Bliss?is a very pleasant 70 y.o. 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 ? Her October 2020 CT scan showed mixed [...] evaluation of the pleural fluid confirmed lymphoma. On March 20, 2021 she has an insertion of Pleurx catheter for recurrent pleural effusions. 04/22/21- Rituxan/Bendamustine x 6 cycles Brian is here today for mid cycle check post C1- she tolerated treatment well. No evidence of clinical toxicities. Pleurx catheter is being drained only once a day- averages 200cc. She has completed course of allopurinol. She can no longer palpate adenopathy. Occasional night sweat. Feels well. Plan: 1. Follow up May 20 for C2 Rituxan/Bendamustine with labs. Brian voiced understanding of the plan and was given an opportunity to ask questions which I answered to the best of my ability. Brian understands she can call the clinic between visits with any questions/concerns or new symptoms. Mansi Allen MSN, USER EXPERIENCE TEAM LEAD, AOCNP Medical Oncology Subjective/Interval History(05/06/21)- Brian returns today for mid cycle check. She tolerated C1 well. No nausea, vomiting, constipation or diarrhea. No fevers, chills or signs of infection. Eating and drinking well. Pleurx drainage has decreased to once daily 200-250 cc. She states she can no longerfeel any of the lymph nodes. Edema in her legs has resolved. She is feeling well. It went much better than I expected. Denies any mouth sores. She is complaining of pulling at the catheter site- discussed trying to tape it differently to take pressure of site. She has some skin irritation at site where tape was placed. No numbness or tingling. No other focal complaints. Remainder of ROS otherwise negative. Objective: Physical Exam Constitutional: Appearance: Normal appearance. She is not toxic-appearing. HENT: Head: Normocephalic. Mouth/Throat: Mouth: Mucous membranes are moist. Pharynx: No oropharyngeal exudate. Eyes: General: No scleral icterus. Conjunctiva/sclera: Conjunctivae normal. Pupils: Pupils are equal, round, and reactive to light. Cardiovascular: Rate and Rhythm: Normal rate and regular rhythm. Pulmonary: Effort: Pulmonary effort is normal. Breath sounds: Normal breath sounds. No wheezing. Abdominal: General: Abdomen is flat. Palpations: Abdomen is soft. There is no mass. Tenderness: There is no abdominal tenderness. There is no right CVA tenderness or left CVA tenderness. Musculoskeletal: Right lower leg: No edema. Left lower leg: No edema. Lymphadenopathy: Cervical: No cervical adenopathy. Skin: General: Skin is warm and dry. Findings: No rash. Neurological: General: No focal deficit present. Mental Status: She is alert. Psychiatric: Mood and Affect: Mood normal. Behavior: Behavior normal. Thought Content: Thought content normal. BP 124/65 (Patient Position: Sitting) Pulse 76 Temp 36.2 ??C (97.2 ??F) (Temporal) Resp 16 Ht 160 cm (5' 2.99) Wt 83.9 kg (185 lb) SpO2 100% BMI 32.78 kg/m?? LABS: 05/06/21- WBC-6.04 Hgb/Hct-10.4/31.9 Plt-214 ANC-4.78 Na-140 K+-4.4 BUN/Cr-20/0.9 Glucose-98 Ca-8.7 T. Bili-0.6 AST-16 ALT-15 alk phos-92 LDH-140 Albumin-2.9 Patient Active Problem List Diagnosis ??? Pleural effusion ??? 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 Biopsy at [place]. 09/06/19 LN Interpretation at [facility] Outside slide(s) labeled [id number], collection date 09/06/2019. Lymph node, supra clavicular [...] for restaging and BR followed by 03/04/21 [facility] [id number] ? Location: [facility] ??SPECIMEN RESULTS Bone marrow aspirate, biopsy , peripheral smear : 1. ??Follicular lymphoma, by history. 2. ??Normocellular marrow (40%) with maturing trilineage hematopoiesis and involved by ??paratrabecular lymphoid aggregates c/w ??Follicular lymphoma, involving 40% of the ??cellularity. SYNOPSIS OF ANCILLARY STUDY RESULT(S) Cytogenetic analysis: Karyotyping, [facility]: ??46,XX[20] 03/17/21 PET EXAMINATION: NM PET CT STANDARD SKULL BASE TO MID-THIGH COMPARISON: CT chest 02/12/2021, CT chest abdomen and pelvis 10/17/2020, and PET/CT 10/04/2019 HEAD/NECK: FDG avid adenopathy in the bilateral upper and lower cervical and supraclavicular regions and within the bilateral parotids, increased in size and number compared to prior PET/CT of 09/2019. [place] lymph node within the highest FDG uptake in the left level 2 region measures 10 mm with SUV max of 18.7 (axial image 26). ?? CHEST: FDG avid adenopathy in the bilateral axillary and bilateral mediastinal and hilar regions, similar in size compared to CT chest of 10/17/2020. [place] lymph node with the highest FDG uptake [...] size compared to prior CT of 10/17/2020. [place] adenopathy in the highest FDG uptake in [...] uptake (SUV max greater than 12) with community health representative nodes detailed above, are highly suspicious [...] 04/22/21 ??? Hypertension ??? Hypothyroidism ??? Hypercholesterolemia documented in this encounter Plan of Treatment Upcoming Encounters Date Type Specialty Care Team Description 06/16/2022 Office Visit Hematology and Oncology Jackie Dillon APRN [facility] HEMATOLOGY/ONCOL [facility] DEPT. [place], [place] [address]375 (Wo rk) 06/16/2022 Infusion Hematology and Oncology documented as of this encounter Procedures Procedure Name Priority Date/Time Associated Diagnosis Comme nts CBC (WITH DIFF) Routine 05/06/2021 Results for this procedure are in the resu lts section. documented in this encounter Results CBC (with Diff) (05/06/2021) P athologist Signature WBC 6.04 Hemoglobin 10.4 Hematocrit 31.9 Platelets 214 Neutr Abs (ANC) 4.78 Creatinine 0.9 LDH 140 Specimen (Source) Anatomical Location Collection Method / Collectio n Time Received Time / Laterality Volume Blood 05/06/2021 Historical Provider HEMATOLOGY ORDERABLES documented in this encounter Visit Diagnoses Diagnosis 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 Pleural effusion Unspecified pleural effusion documented in this encounter
--- OUTSIDE RECORDS SUMMARY | 2022-05-21 01:02 | XMS_ITS | Encounter Summary ---
:1950 Author Organization [facility] [place] [address] Care Team Providers Name Role Phone Unavailable Primary Care Provider Unavailable Encounter Details Date Type Department Care Team Description 05/29/2021 Telephone Hematology Oncology at [facility], Magda Penn [facility] MARI [address] [place], [place] [phone] Social History Tobacco Use Types Packs/Day [...] this encounter Miscellaneous Notes Telephone Encounter - Erica Tolbert RN - 05/29/2021 12:05 PM EST Diagnosis: Follicular Lymphoma Treatment: R-Jimenez s/p C2 on 05/20 and 05/21 with [facility] RN phone call to patient to check in, see how she is feeling and see if she has gotten results of COVID testing done on 05/27. States to me that results can take up to 6 days. Brian reports that she is overall feeling about the same. States I feel like I've got a cold. Haschills and feels like she has a fever but no fever per thermometer. States that she has some dizziness and vision lagging where she looks one way or the other and it takes her brain a minute to catchup. Feels congested. Denies cough. Denies nausea/vomiting, Denies sore throat and/or body aches. Feels tired overall. She has not received results of her COVID test yet. Instructed Brian to rest, drink lots of fluids and monitor for fever. Advised that she should call us with worsening symptoms or if she develops a fever. She verbalized understanding and agreement with plan. She verifies that she has on- call number for over the weekend, if needed. She will call us with the results of her COVID testing. Dr. Monique and Venus Mendieta APRN updated via this note. documented in this encounter Plan of Treatment Upcoming Encounters Date Type Specialty Care Team Description 06/16/2022 Office Visit Hematology and Oncology Jackie Dillon, ASSISTANT EDITOR [facility] [place] [place] [address] (Wo rk) 06/16/2022 Infusion Hematology and Oncology documented as of this encounter Visit Diagnoses Not on filedocumented in this encounter
--- OUTSIDE RECORDS SUMMARY | 2022-05-21 01:03 | XMS_ITS | Encounter Summary ---
:1950 Author Organization [facility] [place] [address] Care Team Providers Name Role Phone Unavailable Primary Care Provider Unavailable Encounter Details Date Type Department Care Team Description 02/24/2021 Orders Only Hematology and Bina Seals, Grade 1 follicular Oncology at [facility] PLANT CONTROL AIDE lymphoma of lymph [facility] nod es of [facility] [address] [place] HEMATOLOGY/ONCOLOGY [address] DEPT. [phone] [place], [place] [address] (Wo rk) Social History Tobacco Use Types Packs/Day Years Used Date Former Smoker Quit: 1989 Smokeless Tobacco: Never Used Alcohol [...] Office Visit Hematology and Oncology Jackie Dillon, PLANT CONTROL AIDE [facility] HEMATOLOGY/ONCOL SHDAIA DEPT. [place], [place] [address] (Wo rk) 06/16/2022 Infusion Hematology and Oncology documented as of this encounter Visit Diagnoses Diagnosis Grade 1 follicular lymphoma of lymph nod es of multiple regions documented in this encounter
--- OUTSIDE RECORDS SUMMARY | 2022-05-21 01:03 | XMS_ITS | Encounter Summary ---
:1950 Author Organization [facility] [place] [address] Care Team Providers Name Role Phone Unavailable Primary Care Provider Unavailable Reason for Visit Reason Onset Date Comments Shortness of Breath 03/17/2021 Encounter Details Date Type Department Care Team Description 03/17/2021 Telephone Hematology/Oncology at Sherlyn Brown Shortness of Breath [facility] RN [address] [place] [phone] Social History Tobacco Use Types Packs/Day [...] this encounter Miscellaneous Notes Telephone Encounter - Sherlyn Brown RN - 03/17/2021 9:30 AM EDT Caller: Brian Bliss Relationship: Self Clarified Two Patient Identifiers: [x] Reason For Call: Shortness of Breath Assessment/Symptom Review (onset, location, duration, what makes it better or worse, pertinent positives and negatives): Brian called to let us know that her SOB has been getting worse the past few days to thepoint it was when she had a thoracentesis ~3 weeks ago. She is wondering about having another thoracentesis. Review of Systems Related to Reason for Call: System POS NEG Not Applicable Head (ENT /Neuro) [] [] [x] Cardiac [] [] [x] Respiratory [x] [] [] GI [] [] [x] [] [] [x] Musculoskeletal [] [] [x] Integumentary [] [] [x] Mental Health [] [] [x] Select Specific Decision Support Tool Used: None available, provider to review Name of Guideline/Protocol Used: discuss with provider Disposition/Plan of Care: Defer to provider recommendation Patient/Caregiver verbalizes understanding of plan of care: Yes Patient/Caregiver agrees with plan: Yes Advised patient/caregiver to: call office back for any new or worsening symptoms Patient/Caregiver demonstrates understanding via teach back: Yes documented in this encounter Plan of Treatment Upcoming Encounters Date Type Specialty Care Team Description 06/16/2022 Office Visit Hematology and Oncology Jackie Dillon, MARGARINE CHURN OPERATOR [facility] HEMATOLOGY/ONCOL SHAD[facility] DEPT. [place], [place] [address] (Wo rk) 06/16/2022 Infusion Hematology and Oncology documented as of this encounter Visit Diagnoses Not on filedocumented in this encounter
--- OUTSIDE RECORDS SUMMARY | 2022-05-21 01:03 | XMS_ITS | Encounter Summary ---
:1950 Author Organization [facility] [place] [address] Care Team Providers Name Role Phone Unavailable Primary Care Provider Unavailable Encounter Details Date Type Department Care Team Description 02/10/2021 Ancillary Procedure Radiology Library at Jennifer Anna [facility] MD Tabby [facility] [address] [place] [phone] Social History Tobacco Use Types Packs/Day Years Used Date Former Smoker Quit: 1989 Smokeless Tobacco: Never Used Sex Assigned at Date Recorded Not on file documented as of this encounter Plan of Treatment Upcoming Encounters Date Type Specialty Care Team Description 06/16/2022 Office Visit Hematology and Oncology Jackie Dillon, HAMMER FITTER [facility] HEMATOLOGY/ONCOL SHAD[facility] DEPT. [place], [place] [address] (Wo rk) 06/16/2022 Infusion Hematology and Oncology documented as of this encounter Procedures Procedure Name Priority Date/Time Associated Diagnosis Comme nts FILM LIBRARY Routine 02/10/2021 12:00 AM Results for this STORAGE ONLY DX EDT procedure ar e in CHEST the results section. documented in this encounter Results Film Library- Storage Only DX Chest (02/10/2021 12:00 AM EDT) Specimen (Source) Anatomical Location Collection Method / Collectio n Time Received Time / Laterality Volume Narrative RAD - 02/18/2021 10:39 AM EDT This exam is auto-finalizing. It's purpo se is for storage only. Jared Anna MD IMG FILM LIBRARY ORDERABLES Performing Organization Address City/State/ZIP Code Phon e Number ISADORA ISADORA [place], [place] documented in this encounter Visit Diagnoses Not on filedocumented in this encounter
--- OUTSIDE RECORDS SUMMARY | 2022-05-21 01:03 | XMS_ITS | Encounter Summary ---
:1950 Author Organization [facility] [place] [address] Care Team Providers Name Role Phone Jared Anna MD Primary Care Provider Encounter Details Date Type Department Care Team Description 01/21/2021 Office Visit Hematology/Oncology Jose Monique MD [facility] DR HEMATOLOGY/[place] [address] Grade 2 follicular at [facility] Venus Mendieta APRN [facility] DR HEMATOLOGY/[place] [address] nodes of multiple [place], [place] regions [phone] Social History Tobacco Use Types Packs/Day Years Used Date Former Smoker Quit: 1989 Smokeless Tobacco: Never Used Sex Assigned at Date Recorded Not on file documented as of this encounter Last Filed Vital Signs Vital Sign Reading Time Taken Comments Blood Pressure 147/75 01/21/2021 11:41 AM EDT Pulse 73 01/21/2021 11:41 AM EDT Temperature 36.1 ??C (96.9 ??F) 01/21/2021 11:41 AM EDT Respiratory Rate 20 01/21/2021 11:41 AM EDT Oxygen Saturation 99% 01/21/2021 11:41 AM EDT Inhaled Oxygen Concentration - - Weight 89.8 kg (198 lb) 01/21/2021 11:41 AM EDT Height 162.6 cm (5' 4.02) 01/21/2021 11:41 AM EDT Body Mass Index 33.97 01/21/2021 11:41 AM EDT documented in this encounter Progress Notes Bina Monique MD - 01/21/2021 11:30 AM EDT Subjective: Patient ID: Brian Ibanez is a 70 y.o. female here for f/u of NHL Patient Active Problem List Diagnosis ??? 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 Biopsy at [place]. 09/06/19 LN Interpretation at [facility] Outside slide(s) labeled [id number], collection date 09/06/2019. Lymph node, supra clavicular [...] 3, Image 176, 34 x 64 mm ??? Hypertension ??? Hypothyroidism ??? Hypercholesterolemia HPI It was a pleasure to see Ms. Izaiah diggs in clinic today. She was diagnosed with follicular lymphoma during Covid and there was no indication for treatment so she has been followed with a watch and wait approach. She had her Achilles tendon repaired and is doing well. Is currently on her summer holiday from school. 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 No B symptoms. No infections. No fevers. No weight loss. Recently diagnosed w/ heart failure. Fatique, dyspnea, and LE edema. Sees Dr Hoang. EcHO planned 02/03/21. Possible nuclear stress test. Review of Systems Constitutional: Positive for fatigue. mild HENT: Negative. Eyes: Negative. Respiratory: Negative. Negative for cough and shortness of breath. Cardiovascular: Negative. Negative for chest pain, palpitations and leg swelling. Gastrointestinal: Negative. Negative for constipation, diarrhea, nausea and vomiting. Genitourinary: Negative. Musculoskeletal: Negative. Left achilles as above Skin: Negative. Neurological: Negative. Negative for weakness and numbness. Hematological: Negative. Psychiatric/Behavioral: Negative. Objective: Physical Exam BP 147/75 (Patient Position: Sitting) Pulse 73 Temp 36.1 ??C (96.9 ??F) (Temporal) Resp 20 Ht 162.6 cm (5' 4.02) Wt 89.8 kg (198 lb) SpO2 99% BMI 33.97 kg/m?? Constitutional: General: She is not in acute distress. Appearance: She is well-developed. HENT: Mouth/Throat: Pharynx: No oropharyngeal exudate. Eyes: Conjunctiva/sclera: Conjunctivae normal. Pupils: Pupils are equal, round, and reactive to light. Cardiovascular: Rate and Rhythm: Normal rate and regular rhythm. Heart sounds: Normal heart sounds. No murmur. Pulmonary: Effort: Pulmonary effort is normal. Breath sounds: Normal breath sounds. No wheezing or rales. Abdominal: General: Bowel sounds are normal. Palpations: Abdomen is soft. There is no mass. But more bloated than her baseline. Tenderness: There is no guarding or rebound. Musculoskeletal: General: Normal range of motion. Cervical back: Normal range of motion and neck supple. Comments: Left orthopedic boot on Lymphadenopathy: Cervical: Cervical adenopathy present. Upper Body: Right upper body: Supraclavicular adenopathy present. Left upper body: No supraclavicular adenopathy. Comments: + 1-2 cm bilat cervical, and SC nodes. Also bilat axillary nodes 1- 2cm. L>R There is adominant 2cm L axillary LN and others are smaller bilaterally Skin: General: Skin is warm and dry. Neurological: Mental Status: She is alert and oriented to person, place, and time. LABS: Results for BRIAN IBANEZ ( ) as of 01/20/2021 22:12 Ref. Range 01/13/2021 00:00 WBC Unknown 4.5 Hemoglobin Unknown 12.5 Hematocrit Unknown 37.2 MCV Unknown 90.0 MCH Unknown 30.3 Platelets Unknown 177 Neutr Abs (ANC) Unknown 2.8 Sodium Unknown 138 Potassium Unknown 4.2 Chloride Unknown 99 BUN Unknown 22 Creatinine Unknown 0.90 BUN/Cre Ratio Unknown 24 Calcium Unknown 9.5 Glucose Lvl Unknown 122 Total Protein Unknown 6.6 Albumin Unknown 4.7 Total Bilirubin Unknown 0.6 Alk Phos Unknown 88 AST Unknown 24 ALT Unknown 16 LDH not done ??10/17/20 EXAMINATION: CT CHEST ABDOMEN PELVIS W [...] She has had no treatment to date. ?? She is doing Ok with no recent infections. NO B symptoms. Blood counts remain stable . Of note she has had recent achilles tendonitis surgery. Her October 2020 CT scan shows mixed results which is not unusual for follicular NHL. The largest masswas a 6.4 cm para-aortic lymph node conglomerate. ?? Ms. Ibanze still meets no clear indications for treatment. Her counts remain stable. Unfortunately we do not have an LDH from today. CAT scan October 2020 ago showed progressive adenopathy, but nothing yet necessary for treatment. I suspect she will need treatment within the next 1 to 2 years. At that timeI would recommend bendamustine and rituximab. Today she has more bloating and is just being worked up for cardiac symptoms. We will see how that pans out and then determine timing of next scan. Thankfully if treated she does not need anthracycline so cardiac function would not inhibit her treatment. Cardiac - Dr Hoang. Concern for heart failure. Plans for ECHO and possible stress test 2020. Sx of fatigue, dyspnea and LE edema. We will continue to monitor prospectively. Brian Ibanez will return to clinic in 3 months Tentatively plan next CT in spring 2021. We can do it sooner if her symptoms worsen. she will call before then if any concerns or changes in status. ?? documented in this encounter Plan of Treatment Upcoming Encounters Date Type Specialty Care Team Description 06/16/2022 Office Visit Hematology and Oncology Jackie Dillon, PRESSURISED CONTAINER FILLER [facility] HEMATOLOGY/[facility] DEPT. [place], [place] [address] (Wo rk) 06/16/2022 Infusion Hematology and Oncology documented as of this encounter Visit Diagnoses Diagnosis 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 documented in this encounter Care Teams Mushroom Press Operator Relationship Specialty Start Date End Date Jared Anna MD PCP - General 06/02/10 02/08/21 documented as of this encounter
--- OUTSIDE RECORDS SUMMARY | 2022-05-21 01:03 | XMS_ITS | Encounter Summary ---
:1950 Author Organization [facility] [place] [address] Care Team Providers Name Role Phone None Primary Care Provider Unavailable Reason for Visit Auth/Cert Specialty Diagnoses / Procedures Referred By Contact Refer red To Contact Diagnoses Lymphoma staging Procedures PRO DIAGNOSTIC BONE MARROW BIOPSIES & ASPIRATIONS ([facility]) BONE MARROW BIOPSY AND ASPIRATION; DIAGNOSTIC Referral ID Status Reason Start Date Expiration Date Visits Requ ested Visits Authorized [id number] 1 1 Encounter Details Date Type Department Care Team Description 03/19/2021 Surgery Outpatient Surgery Bina Monique (O IN MSURG) BONE MARROW Center Anastasia Smith MD BIOPSY AND ASPIRATION; [facility] DR DIAGNOSTIC [facility] HEMATOLOGY/[place] [address] [place] [address] [phone] (Wo rk) Social History Tobacco Use Types [...] Sign Reading Time Taken Comments Blood Pressure 124/66 03/19/2021 8:55 AM EDT Pulse 64 03/19/2021 8:55 AM EDT Temperature 36 ??C (96.8 ??F) 03/19/2021 7:07 AM EDT Respiratory Rate 16 03/19/2021 8:55 AM EDT Oxygen Saturation 95% 03/19/2021 8:55 AM EDT Inhaled Oxygen Concentration - - Weight 81.6 kg (180 lb) 03/19/2021 7:07 AM EDT Height 160 cm (5' 3) 03/19/2021 7:07 AM EDT Body Mass Index 31.89 03/19/2021 7:07 AM EDT documented in this encounter Discharge Instructions Discharge InstructionsBernie Randolph RN - 03/19/2021 7:10 AM EDT OUTPATIENT SURGERY POST-OPERATIVE INSTRUCTIONS BONE MARROW BIOPSY SITE 1. You have had a bone marrow aspiration and or/biopsy, which is like having an operation with a tiny, deep incision. 2. Do Not do any strenuous work today, like housework, yard work, sports of any kind or lifting morethan 5 pounds as it may cause your bone marrow site to bleed. 3. To avoid infection, leave the clear plastic dressing on the site for three days. You may shower, bathe, or swim as you wish, provided the clear dressing remains intact, and all sides of the dressingare firmly adhered to the skin. In the unlikely event that a portion or the entire dressing should come off, you may replace it with a conventional cloth band aid. However, you will no longer be able to get the site wet until three days have passed, as a conventional band aid is not waterproof and thesite is no longer a sterile area. 4. It is not unusual for the site to leak a scant amount of blood, so do not be alarmed to see a small collection, or ???puddle?? of blood under the dressing. Wound healing will still occur. 5. If you are uncertain if there is an increase in any leaking from your bone marrow site, roll up atowel, lie down on a firm surface, place the towel directly over the puncture site to apply pressure, and rest there for one half hour. Direct, FIRM thumb pressure applied to the site for 10 minutes works well as an alternative method. Leave the dressing on. 6. Most people do not experience much discomfort after this procedure, but if you do, you should askyour physician what to take. AVOID ASPIRIN PRODUCTS as these interfere with clotting. 7. After three days, remove your dressing and leave it off, so the air can get to the site to finishthe healing process. 8. NOTIFY YOUR DOCTOR FOR: a. Redness b. Heat c. Fever d. Swelling e. Drainage f. Increased pain g. Foul odor (which may not be apparent through the dressing) If you are having problems or have any additional concerns or questions: Between 8am and 5pm - Call the Hematology Clinic at . After 5pm or on a weekend: Call the [facility] doper operator at and ask for the physician glass deposition tender covering for your doctor. Instructions following sedation You may have received medication before and/or during your procedure, which affects judgement and reaction time. Use caution with stairs. Do not drive, operate machinery, drink alcoholic beverages, or make any legal decisions for 24 hours. You may eat a regular diet as tolerated. Do not smoke if you are alone. IV site -- slight redness, or tenderness is normal, you can use a warm compress. If tenderness and redness increases or foul drainage occurs, please contact your M. D. [facility] [address] ??? [place] [address] ??? [phone] ??? [email or web address] ??? [facility] ??? [facility] ??? .[facility] documented in this encounter Medications at Time of Discharge Medication Sig Dispensed Refills Start Date End Date UNABLE TO FIND Krill oil daily 0 atorvastatin (Lipitor) 10 10 mg daily. 0 09/07/19 20 mg Tablet levothyroxine (Synthroid) Take 75 mcg by 0 2019 75 mcg Tablet mouth daily. venlafaxine XR (Effexor-XR) Take 37.5 mg by 0 37.5 mg Capsule, Sust. mouth daily. Release 24 hr cholecalciferol, Vitamin Take 50 Units by 0 D3, 50 mcg (2,000 unit) mouth daily. Tablet fluticasone propionate 1 spray by Each 16 g 12 06/18/20 20 03/20/2021 (FLONASE) 50 mcg/actuation Nare route daily. [place], Suspension cetirizine (ZyrTEC) 10 mg Take 10 mg by 0 03/20/2021 Tablet mouth daily. DILTiazem HCl 240 mg Tablet Take 240 mg by 0 08/1103/25/2021 Sustained Release 24 hr mouth daily. ubiquinone (coenzyme Q10) Take 200 mg by 0 05/06/2021 100 mg Capsule mouth daily. documented as of this encounter Progress Notes Bernie Randolph RN - 03/19/2021 8:09 AM EDTSummary: summary Date/Procedure: Meds Given Comments 03/19/2021 Versed- 1mg Fentanyl- 25mcg Pt tolerated procedure well IV removed and gauze, pressure and a band-aid applied. After 30 mins of pressure on right lateral posterior hip, rolled towel removed and transparent waterproof film placed over incision. No bleeding or oozing from incision at time of d/c. Discharge instructions and medications reviewed with patient and spouse, Geovanny. All questions answered and written copy of AVS sent home with patient. Patient ambulated to car for discharge accompaniedby [facility] staff member, Eusebio. documented in this encounter H&P Notes Alessandra Acosta APRN - 03/19/2021 7:57 AM EDT Images from the original note were not included. 03/19/2021 Pre-Sedation Assessment: Planned procedure: Unilateral Bone Marrow Aspirate with Biopsy Indications: restaging Diagnosis: Follicular Lymphoma Assessment Cardiovascular: Rhythm: Regular Rate: Normal Pulmonary: Breath sounds clear to auscultation on LEFT decreased on RIGHT ASA: 3 Severe systemic disease Mallampati: Class 3: Soft and Hard Palate clearly visible H&P reviewed: Yes Relevant diagnostic studies: None Confirm NPO status: Yes, Date and Time of last intake: Solid 03/18/21, Fluid 03/19/21 with medication History of anesthetic complications: No Current medications reviewed: Yes Allergies reviewed: Yes Alcohol use: Nightly Date and Time of last drink: Last evening Drug use: None Sedation Plan: moderate (conscious sedation) The sedation plan, its benefits and risks, and alternatives were discussed with the patient. The planned procedure, its benefits and risks, and alternatives were discussed with the patient. Thepatient consented to the procedure. Discharge to: Home Alessandra Acosta APRN Nurse Practitioner Section of Hematology/Oncology [facility] Office phone: documented in this encounter Procedure Notes Alessandra Acosta APRN - 03/19/2021 8:42 AM EDT BONE MARROW BIOPSY AND ASPIRATION PROCEDURE NOTE Bone Marrow Biopsy & Aspiration with Conscious Sedation - Unilateral Date/Time of Procedure: 03/19/2021 Proceduralist: Alessandra Acosta APRN DIAGNOSIS: Pre-Procedure: (x) Consent signed and on chart. (x) CBC drawn within 3 days. (x) Medications/Allergies/Problem List reviewed. (x) H & P complete Prior to start of procedure the following is verified in a TIME OUT: (x) Patient identity (x) Planned procedure (x) Safety concerns IV ACCESS: Per sedation RN PAIN INTERVENTION: Per sedation RN Sterile Condition: Chlorohexidine was used to sterilize the area. Sterile drapes were used to createa sterile field. Local Anesthesia: 1% Lidocaine 18 cc's. PROCEDURE: A bone marrow biopsy and aspiration was performed on the right posterior iliac crest. Pressure applied to site(s) for at least 20 minutes following the procedure and Tegaderm placed. Estimated Blood Loss: minimal Complications: none POST INTERVENTION CARE & PAIN ASSESSMENT: Per [facility] nurses. Follow-up: Written/Verbal instructions for site care given to patient per [facility] nurses. Follow-up with Physician as instructed. Alessandra Acosta APRN documented in this encounter Plan of Treatment Upcoming Encounters Date Type Specialty Care Team Description 06/16/2022 Office Visit Hematology and Oncology Jackie Dillon, RN [facility] ER HEMATOLOGY/ONCOL [place]AD[place] DEPT. [place], [place] [address] (Wo rk) 06/16/2022 Infusion Hematology and Oncology documented as of this encounter Procedures Procedure Name Priority Date/Time Associated Comments Diagnosis BONE MARROW FINAL Routine 03/19/2021 8:35 AM Resu lts for this REPORT EDT procedure are i n the results section. IRON STAIN, BONE Routine 03/19/2021 8:35 AM Resul ts for this MARROW EDT procedure are i n the results section. BONE MARROW PANEL Routine 03/19/2021 8:35 AM ([facility]/CGP/APD) EDT ([facility]) BONE 03/19/2021 8:17 AM Lymphoma staging MARROW BIOPSY AND EDT ASPIRATION; DIAGNOSTIC HEMOGRAM Routine 03/19/2021 7:27 AM Results f or this EDT procedure are i n the results section. DIFFERENTIAL, Routine 03/19/2021 7:27 AM Results for this AUTOMATED EDT procedure are i n the results section. HC CBC,PLT & AUTO Routine 03/19/2021 7:27 AM DIFF EDT KARYOTYPING, BONE Routine 03/19/2021 6:56 AM Resu lts for this MARROW -LOPEZ EDT procedure are i n the results section. ([facility]) BONE Routine 03/19/2021 6:53 AM MARROW BIOPSY AND EDT ASPIRATION; DIAGNOSTIC documented in this encounter Results Bone Marrow Final Report (03/19/2021 8:35 AM EDT) Component Value Ref Test Analysis Performed At [facility] Range Method Time Signature Bone Marrow [id number] ? Location: [facility] Final Report VICI The signing pathologist has (i) examined the relevant preparation(s) for the MEMORIAL specimen(s) and (ii) rendered or confirmed the diagnosis(es) . HOSPITAL LABORATORY . ? Final Integ rated Report INTEGRATED DIAGNOSIS A Karyotyping, Bone Marrow - [place] () has been resulted on a bone marrow belonging to Iain Draper MD. Patient: ??[id number] ?? BRIAN IBANEZ Bone Marrow Integrated Results For SPECIMEN RESULTS Bone marrow aspirate, biopsy , peripheral smear : 1. ??Follicular lymphoma, by history. 2. ??Normocellular marrow (4 0%) with maturing trilineage hematopoiesis and involved by paratrabecular lymphoid agg regates c/w ??Follicular lymphoma, involving 40% of the cellularity. SYNOPSIS OF ANCILLARY STUDY RESULT(S) Cytogenetic analysis: Karyotyping, -Lopez: ??46,XX[20] This is a summary report; co llating results from all diagnostic studies performed at [facility] on this particular bio psy specimen. ??Please refer to the primary report(s) of each individual study for complete text and additional stud y details. Electronically signed by: ?Iain Draper MD Verified: ??03/27/2021 14:11 ??Hematopathologist Performed at: ??-[facility] Dept. of Pathology, [place], [place] ? Bone Marrow Final DIAGNOSIS Bone marrow aspirate, biopsy , peripheral smear : 1. ??Follicular lymphoma, by history. 2. ??Normocellular marrow (4 0%) with ?? maturing trilineage hematopoiesis and involved by paratrabecular lymphoid aggregates c/w ??F ?? ollicular lymphoma, involving 40% of the cellularity. ??Cytogenetics pending. See discussion. Electronically signed by: ?Bonny MACEDO, Iain Verified: ??03/20/2021 17:24 ??Hematopathologist Performed at: ??-[facility] Dept. of Pathology, [place], [place] PERIPHERAL SMEAR WBC 3.35K/ uL, RBC 3.7M/ uL, HGB 11.2g/dL, MCV 90.8fL, RDW 13.4%, PLT 156K/ ??uL There is a mild normochromic normocytic anemia. Anisopoikilocytosis is increased, and ovalocytes, elliptocytes ?? seen. Polychromasia is not significantly increased. ??The total leukocyte count is de creased (3.35 ?K/uL). The neutrophils are mostly mature and without significant lef t-shift. Atypical lymphocytes are present. Remaining leukocyte morphology is gen erally unremarkable. The platelet counts and morphology are normal. BONE MARROW ASPIRATE Adequacy: ?Smear/touch preparations adequate, cellula r. G:E ratio: ? 2:1 Erythroid: ? Complete normoblastic maturation, no left-s hift. Granulocyte: ?? Complete normal maturation, no left-shift. Megakaryocyte: Normal in number and morphology. Lymphocyte: ?Scattered mature forms seen, with scant agg regates . BONE MARROW ASPIRATE ? appreciated. Other: ? Normal pl asma cells, eosinophils, basophils, and mast cells. Iron stain: ?No particles are present, no ring alexa eroblasts are present. DIFFERENTIAL Band/Seg 46%; Lymph 2%; [place] 0%; Eos 4%; Baso 0%; Metamyelocyte 2%; Myelocyte 4%; Promyelocyte 3%; Blast 0%; nRBC's ??39%; Plasma cell 0%; Other 0%; BONE MARROW BIOPSY and/or CLOT Adequacy: ?Adequate, evaluable marrow present. Cellularity: ?? Normocellular, 40% Erythroid: ? Precursors numerically normal. Granulocyte: ?? Precursors numerically normal. Megakaryocyte: Normal in number and appearance, no clusterin g seen. Lymphocytes: ?? Paratrabecular aggregates identified, consis tent with ? lymphoma involvement, invo lving 40% of the cellularity, ? composed by small B lymphocytes, no large cells present. Other: ? Normal pl asma cells, eosinophils, basophils, and mast cells. Bone: ?Trabecular bone normal for age. Special stain: Not performed IMMUNOHISTOCHEMISTRY STUDIES Block: ?A1 Fixative: ?? Formalin ANTIBODY ?RESULT/COMMENT CD3 ? Positive in T cells CD19 ?Positive in B cells The immunoperoxidase stains reported above were developed by the clinical laboratory at [facility]. Antibody specifici ties have been verified on tissues with known staining performance characteristics . These stains have not been cleared or approved by the U.S. Food and Drug Admi nistration, however such approval is not required for analyte-specific reagents o f this type. Appropriate positive and negative controls are included for each case. CLINICAL INFORMATION Specimen: ? Bone marrow aspirate and biop sy, right Clinical Diagnosis: ? Follicular Lymphoma Indication for Study: ?? Follicular Lymphoma Staging Specimen (Source) Anatomical Collection Method Collection Time Re ceived Time Location / / Volume Laterality 03/19/2021 8:35 AM EDT Bina Monique MD PATHOLOGY/CYTOLOGY ORDERABLE S Performing Organization Address City/State/[place] [address] Iron Stain, Bone Marrow (03/19/2021 8:35 AM EDT) [facility] gist Method Time Signature Iron Stain BM See Comment [facility] Comment: See Bone Marrow Report [id number] under Hematopathology Reports. Specimen Anatomical Collection Method Collection Time Receive d Time (Source) Location / / Volume Laterality Bone Marrow 03/19/2021 8:35 AM 8:59 EDT AM EDT Resulting Agency Comment Spec In Lab Bina Monique MD HEMATOLOGY ORDERABLES Performing Organization Address City/State/[place] [address] Differential, Automated (03/19/2021 7:27 AM EDT) P athologist Signature Neutrophils % 61.4 % [facility] Neutr Abs (ANC) 2.06 1.70 - [facility] 6.10 [facility] x10(3)/[facility] LABORATORY Lymphocytes % 27.5 % [facility] Lymphocytes Abs 0.9 0.9 - 3.2 [facility] x10(3)/[facility] LABORATORY Monocytes % 8.1 % [facility] Monocyte Abs 0.3 0.3 - 0.9 [facility] x10(3)/[facility] LABORATORY Eosinophils % 2.4 % [facility] Eosinophils Abs 0.1 0.0 - 0.4 [facility] x10(3)/[facility] LABORATORY Basophils % 0.6 % [facility] Basophils Abs 0.0 0.0 - 0.1 [facility] x10(3)/[facility] LABORATORY Immature Gran % 0.00 % [facility] Comment: Immature granulocytes(IG's)percentage an d absolute count will include metamyelocytes, myelocytes, and promyelo cytes. Blood smears from CBCs yielding IG's will be scanned manually for concor dance. If this scan disagrees with the automated IG or if promyelocytes are not ed, a manual differential will be performed. [place]raine Gran Abs 0.00 0.00 - 0.04 x10(3)/[facility] MAR Y [facility] LABORATORY Specimen Anatomical Collection Method Collection Time Receive d Time (Source) Location / / Volume Laterality Blood 03/19/2021 7:27 AM 9:15 EDT AM EDT Resulting Agency Comment Spec In Lab Bina Monique MD HEMATOLOGY ORDERABLES Performing Organization Address City/State/[place] [address] (ABNORMAL) Hemogram (03/19/2021 7:27 AM EDT) Analysis Performed At Patho logist Time Signature WBC 3.4 (L) 4.0 - 9.5 [facility] x10(3)/[facility] LABORATORY RBC 3.70 (L) 4.00 - [facility] 5.21 [facility] x10(6)/[facility] LABORATORY Hemoglobin 11.2 (L) 11.7 - [facility] 15.5 gm/dL [facility]ORY Hematocrit 33.6 (L) 35.7 - [place] ANNETTA 45.8 % [facility] MCV 90.8 82.6 - [facility] 94.4 [facility] LABORATORY MCH 30.3 27.1 - [place] ANNETTA 32.0 pg [facility] MCHC 33.3 31.7 - [facility] 35.0 gm/dL [facility] Platelets 156 145 - 357 [facility] x10(3)/[facility] LABORATORY RDWSD 44.2 37.0 - [facility] 46.0 [facility] LABORATORY RDWCV 13.4 11.5 - [facility] 14.1 % [facility] LABORATORY MPV 10.6 7.6 - 12.9 [facility] LABORATORY nRBC % Auto 0.0 % [facility] nRBC Abs Auto 0.000 0.000 - [facility] 0.000 [facility] x10(3)/[facility] LABORATORY Specimen Anatomical Collection Method Collection Time Receive d Time (Source) Location / / Volume Laterality Blood 03/19/2021 7:27 AM 9:15 EDT AM EDT Resulting Agency Comment Spec In Lab Bina Monique MD HEMATOLOGY ORDERABLES Performing Organization Address City/State/[place] [address] Karyotyping, Bone Marrow (03/19/2021 6:56 AM EDT) [facility] gist Method Time Signature Karyotyping, ANASTASIA Bone Marrow Test ? Result ?Flag ??Unit ??RefValue [facility] Chromosomes, Hematologic, BM H [facility] ??Result Summary ? Normal LABORATORY ??Interpretation ?No clonal abnormality was apparent. ??Result ? 46 ,XX[20] ??Reason for Referral ?lymphoma ??Specimen ? Bon e Marrow ??Method ? Culture without mitogens ??Banding Method ? SEE CO MMENTS ?Band Resolution: ?<400 ? ----- ? Stain Name ? Cells Analyzed ??Cells ?Karyograms ?Counted ?Prepared ? GTL ?20 ?0 ?2 ? Total ?20 ?0 ?2 ? ----- ?Rojo to Stain Name: GTL=G-banding; QFQ=Q-banding; ?DAPI=DAPI-staining; CBL=C-banding; AGNOR=Silver-staini ng; ?NON=Non-banded ?The sum of Cells Analyzed and Cells Counted equals the ?total cells examined. ??Additional Information ? SEE COMMEN TS ?A portion of testing was performed at [facility] - ?Site #2 Cytogenetics (CLIA # [id number]), [address] [place] [address] [place] [address]. ??Released By ?Leta Huerta, Ph.D. ?Test Performed by: ?[facility] ?[address] [id number] ?Diesel Dinkey Engineer: Mello Del Real M.D. Ph.D.; CLIA# [id number] Specimen Anatomical Collection Method Collection Time Receive d Time (Source) Location / / Volume Laterality Bone Marrow HLX Bone Marrow / 03/19/2021 6:56 AM 03/2021 1:46 Unknown EDT PM EDT Resulting Agency Comment Spec In Lab Bina Monique MD CHEMISTRY ORDERABLES Performing Organization Address City/State/[place] [address] documented in this encounter Visit Diagnoses Not on filedocumented in this encounter Administered Medications Inactive Administered Medications - up to 3 most recent administrations Medication Order MAR Action Action Date Dose Rate Site fentaNYL (pf) (50 mcg/mL) Given 03/19/2021 8:21 AM EDT 25 mcg multi-dose injection 25 mcg 25 mcg, Intravenous, EVERY 5 MIN PRN, Starting on Yocasta 03/19/21 at 0800, Until Yocasta 03/19/21 at 0836, Pain, For use in the Operating Room (OR) or Outpatient Surgical Center ([facility]) only for procedural sedation with direct provider supervision and verbal order. Hold for respiratory rate less than 8 breaths per minute. (maximum dose 100 mcg), Intra-Operative (Intra-Procedure), Routine midazolam (pf) (Versed) (1 mg/mL) multi-dose Given 03/19/2021 8: 19 AM EDT 1 mg injection 0.25-1 mg 0.25-1 mg, Intravenous, EVERY 5 MIN PRN, Starting on Yocasta 03/19/21 at 0800, Until Yocasta 03/19/21 at 0836, Anxiety, For use in the Operating Room (OR) or Outpatient Surgical Center ([facility]) only for procedural sedation with direct provider supervision and verbal order. Hold for delirium/agitation. (Maximum dose 4 mg.), Intra-Operative (Intra-Procedure), Routine documented in this encounter Active and Recently Administered Medications Times are shown in EDT. PRN Medication Order 03/17/2021 03/18/2021 03/19/2021 fentaNYL (pf) (50 mcg/mL) multi-dose injection 25 mcg (CANCELED) 08 (Given - Provider: Bernie Randolph RN) 25 mcg, Intravenous, EVERY 5 MIN PRN, St arting on Yocasta 03/19/21 at 0800, Until Yocasta 03/19/21 at 0836, Pain, For use in the Operating Room (OR) or Outpatient [facility] Center ([facility]) only for procedural sedation with direct provider supervision and jem bal order. Hold for respiratory rate less than 8 breaths per minute. (maximum dose 100 mcg), Intra-Operative (Intra- Procedure), Routine midazolam (pf) (Versed) (1 mg/mL) multi-dose injection 0.25-1 mg (CANCELED) 08 (Given - Provider: Bernie Randolph RN) 0.25-1 mg, Intravenous, EVERY 5 MIN PRN, Starting on Yocasta 03/19/21 at 0800, Until Yocasta 03/19/21 at 0836, Anxiety, For use in the Operating Room (OR) or Outpatient [facility] Center ([facility]) only for procedural sed ation with direct provider supervision a nd verbal order. Hold for delirium/agitation. (Maximum dose 4 mg.), Intra-Operative (Intra-Procedure), Routine documented in this encounter Care Teams Pay Station Collector Relationship Specialty Start Date End Date None PCP - General 03/19/21 03/19/21 None documented as of this encounter
--- OUTSIDE RECORDS SUMMARY | 2022-05-21 01:03 | XMS_ITS | Encounter Summary ---
:1950 Author Organization [facility] [address] Care Team Providers Name Role Phone Unavailable Primary Care Provider Unavailable Encounter Details Date Type Department Care Team Description 02/24/2021 Hospital Encounter XRay at [facility] Eneida, Grade 2 follicular [address] [facility] [address] Bina Smith MD lymphoma of [facility] nodes of multiple [id number] DR lyn [phone] HEMATOLOGY/ONCOLOG Y DEPT. [place], [place] [address] Social History Tobacco Use Types [...] mg by 0 37.5 mg Capsule, Sust. Release mouth daily. 24 hr cholecalciferol, Vitamin D3, Take 50 Units 0 50 mcg (2,000 unit) Tablet by mouth daily. tolterodine LA (Detrol LA) 4 0 021 03/04/2021 mg Capsule, Sust. Release 24 hr fluticasone propionate 1 spray by Each 16 g 12 06/18/20 20 03/20/2021 (FLONASE) 50 mcg/actuation Nare route [place], Suspension daily. cetirizine (ZyrTEC) 10 mg Take 10 mg by 0 03/20/2021 Tablet mouth daily. DILTiazem HCl 240 mg Tablet Take 240 mg by 0 08/1103/25/2021 Sustained Release 24 hr mouth daily. hydroCHLOROthiazide Take 25 mg by 0 08/23/2019 (Hydrodiuril) 25 mg Tablet mouth daily. losartan (COZAAR) 100 mg Take 100 mg by 0 020 03/04/2021 Tablet mouth daily. ubiquinone (coenzyme Q10) 100 Take 200 mg by 0 05/06/2021 mg Capsule mouth daily. 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 [place], [place] [address] (Wo rk) 06/16/2022 Infusion Hematology and Oncology documented as of this encounter Procedures Procedure Name Priority Date/Time Associated Diagnosis Comme nts XR CHEST PA AND Routine 02/24/2021 9:09 AM Grade 2 follicular Results for this LATERAL EDT lymphoma of lymph procedure are in nodes of multiple the result s regions section. documented in this encounter Results XR Chest PA & Lateral (Generic) (02/24/2021 9:09 AM EDT) Anatomical Region Laterality Modality Chest N/A Digital Radiography Specimen (Source) Anatomical Location Collection Method / Collectio n Time Received Time / Laterality Volume Impressions 02/24/2021 11:37 AM EDT Unchanged large right pleural effusion. I have personally reviewed the image(s) and the resident's interpretation and agree with the findings, Nicole Mejia MD at 02/24/2021 11:37 AM Thank you for letting us participate in the care of this patient. ??If you are a health care provider and have any questi ons regarding this report, please contact the number below. ??For patients who have questions please contact the health spiritual care coordinator that requested your imaging first. ? Electronically signed by: Nicole Mejia MD, [facility] ([phone]), at 02/24/2021 11:37 AM Narrative 02/24/2021 11:37 AM EDT EXAMINATION: XR CHEST PA AND LATERAL (GENERIC) CLINICAL HISTORY: h/o lymphoma with righ t pleural effusion - CXR before thoracentesis TECHNIQUE: PA and lateral views of the chest COMPARISON: CT chest from 02/12/2021 FINDINGS: Unchanged large right pleural effusion. No areas of focal consolidation. No pneumothorax. The hilar and pulmonary va scular markings are unremarkable. Moderate degenerative changes of the lef t humeral head are present. No acute osseous abnormalities. Procedure Note Nicole Mckeon MD - 2020 EXAMINATION: XR CHEST PA AND LATERAL (GE NERIC) CLINICAL HISTORY: h/o lymphoma with righ t pleural effusion - CXR before thoracentesis TECHNIQUE: PA and lateral views of the chest COMPARISON: CT chest from 02/12/2021 FINDINGS: Unchanged large right pleural effusion. No areas of focal consolidation. No pneumothorax. The hilar and pulmonary va scular markings are unremarkable. Moderate degenerative changes of the lef t humeral head are present. No acute osseous abnormalities. IMPRESSION Unchanged large right pleural effusion. I have personally reviewed the image(s) and the resident's interpretation and agree with the findings, Nicole Mejia MD at 02/24/2021 11:37 AM Thank you for letting us participate in the care of this patient. If you are a health care provider and have any questi ons regarding this report, please contact the number below. For patients w ho have questions please contact the health spiritual care coordinator that requested your imaging first. 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
--- OUTSIDE RECORDS SUMMARY | 2022-05-21 01:03 | XMS_ITS | Encounter Summary ---
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 [address] Referral ID Status Reason Start Date Expiration Date Visits V isits Requested Authorized [id number] Closed Specialty 02/20/2021 08/23/2022 1 1 Service Requested Encounter Details Date Type Department Care Team Description 02/24/2021 Hospital Encounter Radiology at [facility] Bina Monique MD [facility] HEMATOLOGY/[place] [address] Grade 2 follicular [facility] Vikki Bartes RN lymphoma of lymph Drive nodes of multiple [place] regions [id number] Social History Tobacco Use Types Packs/Day Years [...] Sign Reading Time Taken Comments Blood Pressure 153/64 02/24/2021 11:29 AM EDT Pulse 65 02/24/2021 11:29 AM EDT Temperature 36.1 ??C (97 ??F) 02/24/2021 11:29 AM EDT Respiratory Rate 18 02/24/2021 11:29 AM EDT Oxygen Saturation 97% 02/24/2021 11:29 AM EDT Inhaled Oxygen Concentration - - Weight - - Height - - Body Mass Index - - documented in this encounter Discharge Instructions Discharge Hardeep Mims RN - 02/24/2021 11:[address] [facility] Vascular and Interventional Radiology Discharge Instructions Following Your Thoracentesis (drainage of the fluid around your lung) Activity and Diet: Go home and rest quietly for the remainder of the day. You may resume your normalactivities tomorrow. You may have received medication during your procedure to help with pain and keep you comfortable. These medications affect judgment and reaction time. Because of the sedation, be c areful on stairs, as you may be unsteady on your feet. We recommend that you do not drive, operate equipment, sign any important documents, or smoke unattended for 24 hours following your procedure. Resume your usual diet after the procedure. Bandage: There is a sterile dressing over the puncture site consisting of a small gauze with a cleardressing (Tegaderm). This dressing should be left in place for 24 hours. If the clear dressing becomes loose, you should place tape over the edges to secure it in place. Bathing: Do not take a shower until 24 hours after your procedure; after this time you may shower with the dressing in place, then remove it and pat your skin dry. You may use a bandaid to cover the site if there is any drainage. When to call your healthcare provider: *If you notice bleeding or a bulge from the puncture site. You should apply firm pressure over the site for 10-15 minutes, keeping the site covered. If you are still bleeding after 10-15 minutes, reapply pressure, and have someone drive you to the nearest Emergency Department, or call 911. *If you develop chest pain that is not normal to you, shoulder or back, of if you develop shortness of breath which is new, or worse than is normal for you, call 911 or go to the Emergency Department closest to you. *If you develop pain, redness, drainage or swelling at or around the puncture site. *If you develop fever equal to or greater than 101F and/or shaking chills. *It is normal for your intravenous site to be slightly tender and red. You may use a warm compress to help with the symptoms. If tenderness or redness persists, or increases, or you notice drainage from the site, please contact your healthcare provider. When to call the Interventional Radiology Department: Please call with any questions or concerns. Ifit is during regular office hours, please call [phone]. If it is after regular office hours, oron weekends or holidays, please call [phone] and ask to speak to the Channel Sales Manager on callfor Interventional Radiology. Revised 01/05/17 documented in this encounter Medications at Time [...] 20 03/20/2021 (FLONASE) 50 mcg/actuation Nare route [place], Suspension daily. cetirizine (ZyrTEC) 10 mg Take [...] documented as of this encounter Progress Notes Hardeep Bunch RN - 02/24/2021 11:04 AM EDT [facility] Name: BRIAN IBANZE Date of : 1950 AGE: 70 y.o. Address: [facility] [address] (home) [phone] (work) Mobile: Telephone Information: Referring Provider: Bina M Eneida REASON FOR VISIT: Order Questions Answers Where will study be performed? [facility] Radiology [120] What is the purpose of the study? Therapeutic and Diagnostic Reason for exam and clinical history: h/o lymphoma - right pleural effusion - be sure it goes for flow cytometry and LLS screen - orders placed Is the patient on anticoagulant / antiplatelet therapy ? Aspirin Plan Planned procedure: Right thoracentesis (02/23/21 1143) Labs to be performed day of procedure: No labs (02/23/21 1143) Sedation: Fentanyl only (02/23/21 1143) Prophylactic antibiotic : None (02/23/21 1143) Contrast: No contrast (02/23/21 1143) Additional medications for procedure: Lidocaine (02/23/21 1143) Consent: Pending (02/23/21 114) Allergies Allergen Reactions ??? Sulfa (Sulfonamide Antibiotics) Pertinent PMH: Patient Active Problem List Diagnosis Code ??? 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 Hypertension I10 ??? Hypothyroidism E03.9 ??? Hypercholesterolemia E78.00 Date/Procedure Meds Given/Comments 02/24/21 thoracensis-1600 Local only 1049 to procedure room 5 via stretcher. On stretcher with legs down on the side. All monitors, O2, safety strap in place. Meds per protocol. Laboratory Results: Lab Results Component Value Date CREATININE 0.90 01/13/2021 Lab Results Component Value Date K 4.2 01/13/2021 Lab Results Component Value Date PLATELET 177 01/13/2021 documented in this encounter H&P Notes Timoteo Galindo MD - 02/23/2021 11:43 AM EDT Images from the original note were not included. Interventional Radiology Focused Pre-procedure H&P: PRE-SEDATION ASSESSMENT / FOCUSED H&P Addendum: The patient's history and physical exam have been reviewed and completed. There has been no intervalchange from that of the pre-operative history and physical exam done within the last 30 days. Risks (including hemorrhage, infection, ptx, respiratory depression), and benefits discussed and patient consented to the procedure. I have reviewed with the patient, their prior experience with sedation. The patient has been NPO perprotocol I have reviewed the sedation plan for this patient???s case and concur that Fentanyl and Versed are appropriate choices for sedation and will be provided per the protocoled order set for this case Physical Exam Heart: RRR Lungs: clear ASA Classification: ASA 2 - Patient with mild systemic disease with no functional limitations Mallampati Classification: III (soft palate, base of uvula visible) PCP: Jared Anna MD Referring Provider: Bina Monique Planned procedure: Right thoracentesis Procedure indication: Lymphoma, pleural fluid on chest imaging IR workflow: Procedure request received through Interventional Radiology eDH order queue. Order Questions Answers Where will study be performed? [facility] Radiology [120] What is the purpose of the study? Therapeutic and Diagnostic Reason for exam and clinical history: h/o lymphoma - right pleural effusion - be sure it goes for flow cytometry and LLS screen - orders placed Is the patient on anticoagulant / antiplatelet therapy ? Aspirin History of present illness: Per chart review, Brian Ibanez is a 70 y.o. female who presents to Interventional Radiology to undergo right thoracentesis in setting of lymphoma. This is a patient with lymphoma who has not undergone treatment due to relatively stable counts and lack of symptoms. CT 02/12/21 demonstrates large pleural fluid collection, for which diagnostic and therapeutic sampling requested. Medical history notable for hypertension. Remainder of patient's medical and surgical history, allergies, medications, and social/family history obtained below as previously outlined in patient's medical record. IR history: none Imaging: Assessment: 70 y.o. female with lymphoma and pleural fluid on imaging presenting to Interventional Radiology for thoracentesis. Plan Planned procedure: Right thoracentesis Labs to be performed day of procedure: No labs Sedation: Fentanyl only Prophylactic antibiotic : None Contrast: No contrast Additional medications for procedure: Lidocaine Consent: Pending Labs: Lab Results Component Value Date HGB 12.5 01/13/2021 HCT 37.2 01/13/2021 WBC 4.5 01/13/2021 PLATELET 177 01/13/2021 BUN 22 01/13/2021 CREATININE 0.90 01/13/2021 ALBUMIN 4.7 01/13/2021 BILITOT 0.6 01/13/2021 AST 24 01/13/2021 ALT 16 01/13/2021 ALKPHOS 88 01/13/2021 Allergies: Sulfa (sulfonamide antibiotics) Medications: Current Outpatient Medications on File Prior to Encounter Medication Sig Dispense Refill ??? tolterodine LA (Detrol LA) 4 mg Capsule, Sust. Release 24 hr ??? fluticasone propionate (FLONASE) 50 mcg/actuation [place], Suspension 1 spray by Each Nare route daily. 16 g 12 ??? cetirizine (ZyrTEC) 10 mg Tablet Take 10 mg by mouth daily. ??? UNABLE TO FIND Krill oil daily ??? atorvastatin (Lipitor) 10 mg Tablet 10 mg daily. ??? DILTiazem HCl 240 mg Tablet Sustained Release 24 hr Take 240 mg by mouth daily. ??? hydroCHLOROthiazide (Hydrodiuril) 25 mg Tablet Take 25 mg by mouth daily. ??? levothyroxine (Synthroid) 75 mcg Tablet Take 75 mcg by mouth daily. ??? losartan (COZAAR) 100 mg Tablet Take 100 mg by mouth daily. ??? venlafaxine XR (Effexor-XR) 37.5 mg Capsule, Sust. Release 24 hr Take 37.5 mg by mouth daily. ??? ubiquinone (coenzyme Q10) 100 mg Capsule Take 200 mg by mouth daily. ??? cholecalciferol, Vitamin D3, (Vitamin D-3) 50 mcg (2,000 unit) Tablet Take 50 Units by mouth daily. No current facility-administered medications on file prior to encounter. Past medical/surgical history: Patient Active Problem List Diagnosis Code ??? 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 Hypertension I10 ??? Hypothyroidism E03.9 ??? Hypercholesterolemia E78.00 No past medical history on file. No past surgical history on file. Social history and habits: Social History Tobacco Use ??? Smoking status: Former Smoker Quit date: 1990 Years since quittin.6 ??? Smokeless tobacco: Never Used Vaping Use ??? Vaping Use: Never used Substance Use Topics ??? Alcohol use: Not on file ??? Drug use: Not on file Significant family history: No family history on file. Pertinent ROS: as per HPI Physical exam: Pending (to be performed in interventional radiology the day of procedure) ASA: Pending (to be assessed in interventional radiology the day of procedure) Mallampati class: Pending (to be assessed in interventional radiology the day of procedure) 02/23/2021 JANET Jovel documented in this encounter Plan of Treatment Upcoming Encounters Date Type Specialty Care Team Description 06/16/2022 Office Visit Hematology and Oncology Jackie Dillon, RESEARCH AFFILIATE [facility] HEMATOLOGY/ONCOL OGY DEPT. [place], [place] [address] (Wo rk) 06/16/2022 Infusion Hematology and Oncology documented as of this encounter Procedures Procedure Name Priority Date/Time Associated Comments Diagnosis IR THORACENTESIS RIGHT Routine 02/24/2021 11:26 Grade 2 follic ular Results for this AM EDT lymphoma of lymph procedure are in nodes of multiple the result s regions section. IMMUNOPHENOTYPING FLOW Routine 02/24/2021 11:10 Grade 2 follic ular Results for this CYTOMETRY AM EDT lymphoma of lymph procedure are in nodes of multiple the result s regions section. BODY FLUID HOLD Routine 02/24/2021 11:10 Results for this AM EDT procedure are i n the results section. BODY FLUID HOLD Routine 02/24/2021 11:10 Results for this AM EDT procedure are i n the results section. LEUKEMIA LYMPHOMA SCREEN Routine 02/24/2021 11:10 Grade 2 foll icular Results for this (FORMERLY MALIGNANT CELL AM EDT lymphoma of lymp h procedure are in SCREEN) nodes of multiple the result s regions section. HC BODY FLUID CELL CT Routine 02/24/2021 11:10 Grade 2 follicu lar Results for this W/DIFF AM EDT lymphoma of lymph procedure are in nodes of multiple the result s regions section. HC PROTEIN,TOTAL,BODY Routine 02/24/2021 11:10 Grade 2 follicu lar Results for this FLUID AM EDT lymphoma of lymph procedure are in nodes of multiple the result s regions section. HC LACTIC DEHYDROGENASE Routine 02/24/2021 11:10 Grade 2 folli cular Results for this AM EDT lymphoma of lymph procedure are in nodes of multiple the result s regions section. HC ALBUMIN, BODY FLUID Routine 02/24/2021 11:10 Grade 2 follic ular Results for this AM EDT lymphoma of lymph procedure are in nodes of multiple the result s regions section. HC BODY FLUID CULTURE Routine 02/24/2021 11:02 Grade 2 follicu lar Results for this AM EDT lymphoma of lymph procedure are in nodes of multiple the result s regions section. NON-COTTON WRINGER FINAL REPORT Routine 02/24/2021 11:01 Res ults for this AM EDT procedure are i n the results section. CYTOPATHOLOGY Routine 02/24/2021 11:01 Grade 2 follicular Resu lts for this NON-GYNECOLOGICAL AM EDT lymphoma of lymph proce dure are in nodes of multiple the result s regions section. FLUID REVIEW REPORT Routine 02/24/2021 9:30 Resul ts for this AM EDT procedure are i n the results section. documented in this encounter Results IR Thoracentesis Right (02/24/2021 11:26 AM EDT) Anatomical Region Laterality Modality Chest X-Ray Angiography Specimen (Source) Anatomical Location Collection Method / Collectio n Time Received Time / Laterality Volume Narrative 02/24/2021 11:30 AM EDT IR Procedure Note Procedure: ?? US guided right thoracente sis History/indication: ?70 yr old F pat ient with lymphoma who has not undergone treatment due to relatively st able counts and lack of symptoms. CT 02/12/21 demonstrates large pleural flu id collection, for which diagnostic and therapeutic sampling requ ested. Technique: ?? After obtaining informed c onsent, the right posterior chest was examined with US. A large pleural ef fusion is present. The posterolateral aspect was prepped and dr aped in a sterile fashion. 1% lidocaine (<10 cc) was used as local ane sthesia. Under US guidance, a 21 gauge needle was advanced into the pleural space with spontaneous return of thin, serous appearing pleural fluid. Over a 0.018 wire, a 3 Fr inner micropuncture d ilator with coaxial mounted Yueh catheter was advanced. Specimens were sent for the requested la b studies. A total of 1600 cc was removed by syringe aspiration.. A petrol eum dressing was applied after removing the catheter. The patient tolerated the procedure well . Complications: ?None immediate; ??EB L=0 Medications: ??1% lidocaine (<10 cc) Findings: 1. Large right pleural effusion by US ev aluation 2. US guided thoracentesis with removal of 1600 cc as above. Attending: ?Maria Elena Wright MD ? I was present during the intraservice ti me as documented by the IR Nurse. Bina Monique MD IMG IR ORDERABLES Body Fluid HOLD (02/24/2021 11:10 AM EDT) [facility] gist Method Time Signature Hold BF Type Sample in [facility] LABORATORY Specimen Anatomical Collection Method Collection Time Receive d Time (Source) Location / / Volume Laterality Body Fld Other / Unknown 02/24/2021 11:10 02/25/20 21 AM EDT 12:05 PM EDT Bina Monique MD BODY FLUIDS AND STOOLS ORDER TIERRA Performing Organization Address City/[facility]/[place] [id number] Body Fluid HOLD (02/24/2021 11:10 AM EDT) [facility] gist Method Time Signature Hold BF Type Sample in [facility] LABORATORY Specimen Anatomical Collection Method Collection Time Receive d Time (Source) Location / / Volume Laterality Body Fld Other / Unknown 02/24/2021 11:10 02/25/20 21 AM EDT 12:05 PM EDT Bina Monique MD BODY FLUIDS AND STOOLS ORDER TIERRA Performing Organization Address City/[facility]/[place] [id number] Lactate Dehydrogenase Body Fluid Pleural, Right (02/24/2021 11:10 AM EDT) P athologist Signature LDH BF 115 unit/L [facility] Comment: No reference range is available for the specimen type submitted. ??The performance of this assay for the submit bernard type has not been validated and results should be interpreted accordingl y and with regard to the patient's clinical status. LDH, BF Type Pleural, Right [facility] Specimen Anatomical Collection Method Collection Time Receive d Time (Source) Location / / Volume Laterality Pleural, Right 02/24/2021 11:10 1 AM EDT 11:47 AM EDT Resulting Agency Comment Spec In Lab Bina Monique MD BODY FLUIDS AND STOOLS ORDER TIERRA Performing Organization Address [facility] [place] [id number] Albumin Level Body Fluid Pleural, Right (02/24/2021 11:10 AM EDT) P athologist Signature Albumin, BF 3.3 gm/dL [facility] Comment: In the evaluation of ascites, a serum (o r plasma) ? ascites albumin gradient equal to or greater than 1.1 g/dL is usu ally associated with portal hypertension. ??A gradient less than 1.1 g/dL is usually seen in patients who do not have portal hypertension. No reference range is available for the specimen type submitted. ??The performance of this assay for the submit bernard type has not been validated and results should be interpreted accordingl y and with regard to the patient's clinical status. Albumin BF Type Pleural, Right [facility] Specimen Anatomical Collection Method Collection Time Receive d Time (Source) Location / / Volume Laterality Pleural, Right 02/24/2021 11:10 1 AM EDT 11:47 AM EDT Resulting Agency Comment Spec In Lab Bina Monique MD BODY FLUIDS AND STOOLS ORDER TIERRA Performing Organization Address City/[facility]/[place] [id number] Protein Level Body Fluid Pleural, Right (02/24/2021 11:10 AM EDT) P athologist Signature Protein, BF 4.2 gm/dL [facility] Comment: There is no reference range available fo r the specimen type submitted. For determination of transudative vs. ex udative pleural effusions: Transudates: Pleural Total Protein/Serum Total Protein <0.5 g/dL. Exudates: Pleural Total Protein/Serum To pedro luis Protein >0.5 g/dL. Protein BF Type Pleural, Right [facility] Specimen Anatomical Collection Method Collection Time Receive d Time (Source) Location / / Volume Laterality Pleural, Right 02/24/2021 11:10 1 AM EDT 11:47 AM EDT Resulting Agency Comment Spec In Lab Bina Monique MD BODY FLUIDS AND STOOLS ORDER TIERRA Performing Organization Address City/State/ZIP Code Phon e Number [place] [id number] Cell Count Body Fluid Pleural, Right (02/24/2021 11:10 AM EDT) [facility] Method Time Signature Spec Type BF Pleural, [facility] LABORATORY Color BF Yellow [facility] Appearance BF Hazy [facility] WBC BF Ct 3,397 /[facility] LABORATORY Comment: Guideline listed below apply to all body fluids. When Body Fluid WBC count is greater xavier n Zero, a smear is made and scanned. All scan information is correlated with numeric results prior to being released to patients chart. The reference interval(s) and other meth od performance specifications have not been established for this body fluid. Th e test result must be integrated into the clinical context for interpretation. Polymorph % 0 % [facility] Comment: Polymorphonuclear cell percent and absol [place] values may contain Neutrophils, Eosinophils, and Basophils. Body fluid s mear will be scanned manually for concordance. Mononuc % 100 % [facility] Comment: Mononuclear cell percent and absolute va lues may contain Lymphocytes and Monocytes. Body fluid smear will be scan bladimir manually for concordance. Polymorph BF ABS 12 /[facility] LABORATORY Comment: Polymorphonuclear cell percent and absol [place] values may contain Neutrophils, Eosinophils, and Basophils. Body fluid s mear will be scanned manually for concordance. Mononuc ABS 3,385 /[facility] LABORATORY Comment: Mononuclear cell percent and absolute va lues may contain Lymphocytes and Monocytes. Body fluid smear will be scan bladimir manually for concordance. Specimen Anatomical Collection Method Collection Time Receive d Time (Source) Location / / Volume Laterality Pleural, Right 02/24/2021 11:10 1 AM EDT 11:43 AM EDT Resulting Agency Comment Spec In Lab Bina Monique MD BODY FLUIDS AND STOOLS ORDER TIERRA Performing Organization Address City/[facility]/ZIP Code Phon e Number [address] Leukemia Lymphoma Screen Pleural, Right (02/24/2021 11:10 AM EDT) [facility] Method Time Signature LLS BF Type Pleural, [facility] LAB[facility] Leukemia See Comment [facility] LABORATORY Comment: See Fluid Review Report [id number] under Hematopathology Reports. Specimen Anatomical Collection Method Collection Time Receive d Time (Source) Location / / Volume Laterality Pleural, Right 02/24/2021 11:10 AM EDT 11:44 AM EDT Resulting Agency Comment Spec In Lab Bina Monique MD BODY FLUIDS AND STOOLS ORDER TIERRA Performing Organization Address City/[facility]/ZIP Code Phon e Number [address] Immunophenotyping Flow Cytometry (02/24/2021 11:10 AM EDT) Component Value Ref Test Analysis Performed At [facility] Range Method Time Signature Immunophenotyping See [facility] Flow Comment [facility] Comment: When completed by the Pathologist, the F low Cytometry Report ([id number]) will display under the Pathology Result s section within eDH. Specimen Anatomical Collection Method Collection Time Receive d Time (Source) Location / / Volume Laterality Other 02/24/2021 11:10 02/24/2021 AM EDT 11:52 AM EDT Resulting Agency Comment Spec In Lab Bina Monique MD HEMATOLOGY ORDERABLES Performing Organization Address City/[facility]/ZIP Code Phon e Number [address] Body Fluid Culture, Aerobic Pleural Fluid (02/24/2021 11:02 AM EDT) Component Value Ref Test Analysis Performed At [facility] Range Method Time Signature Body Fluid No growth [facility] Culture [facility] Gram Stain Cytocentrifuge Gram Stain performed [facility] Neutrophils seen [place] No microorganisms seen. [facility] LABOR[facility] Specimen Anatomical Collection Method Collection Time Receive d Time (Source) Location / / Volume Laterality Pleural Fluid 02/24/2021 11:02 02/24/2021 AM EDT 12:11 PM EDT Resulting Agency Comment Spec In Lab Bina Monique MD MICROBIOLOGY - GENERAL ORDER TIERRA Performing Organization Address City/State/ZIP Code [place] [address] Non-Hris Manager Final Report (02/24/2021 11:01 AM EDT) Component Value Ref Test Analysis Performed At [facility] Range Method Time Signature Non-Hris Manager [id number] ? Location: [facility] Final Report [place] The signing pathologist has (i) examined the relevant preparation(s) for the [facility] specimen(s) and (ii) rendered or confirmed the diagnosis(es) . HOSPITAL LABORATORY . ? No n-Hris Manager Final DIAGNOSIS Positive for Malignancy Electronically signed by: ?Bonny MACEDO, Iain Verified: ??02/26/2021 15:31 ??Hematopathologist Performed at: ??-[facility] Dept. of Pathology, [place], [place] DISCUSSION Pleural fluid, thoracentesis: Low grade Follicular lymphoma. Cell block was examined. ??Flow analysis ( performed on concurrent Fluid review specimen ) supports the above finding. CLINICAL INFORMATION Specimen Source : Pleural fluid, thoracentesis Pertinent Clinical Data and Significant Therapy: H/o lymphoma - do LLS ??preparation via hematopathology not cytology Clinical Impression : ? recurrence Pertinent Radiologic Findings ??: (not provided) Gross Description: Received ??fresh, approximately 250 mL t otal volume of ?? cloudy, radha fluid. Total Preparation: Liquid-Based Prep 1; Cell Block 1. Specimen (Source) Anatomical Collection Method Collection Time Re ceived Time Location / / Volume Laterality 02/24/2021 11:01 AM EDT Bina Monique MD PATHOLOGY/CYTOLOGY ORDERABLE S Performing Organization Address City/State/[place] [address] Cytopathology Non-Gynecological (02/24/2021 11:01 AM EDT) Specimen Anatomical Collection Method Collection Time Receive d Time (Source) Location / / Volume Laterality AP Specimen 02/24/2021 11:01 02/24/2021 AM EDT 11:52 AM EDT Narrative [facility] LABORAT ORY - 02/24/2021 11:52 AM EDT Specimen requisition ordered. ??Separate Pathology report to follow Resulting Agency Comment Spec In Lab Bina Monique MD PATHOLOGY/CYTOLOGY ORDERABLE S Performing Organization Address City/[facility]/[place] [address] [facility] [address] Fluid Review Report (02/24/2021 9:30 AM EDT) Component Value Ref Test Analysis Performed At Patholo gist Range Method Time Signature Fluid Review [id number] ? Location: [address] [place] [address] The signing pathologist has (i) examined the relevant preparation(s) for the [facility] specimen(s) and (ii) rendered or confirmed the diagnosis(es) . HOSPITAL LABORATORY . ? 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 of Pathology, [place], [place] DISCUSSION WBC/uL: 3397 ??Mostly small neoplastic lymphocytes present . ADDITIONAL STUDIES Flow analysis supports the above finding. CLINICAL INFORMATION Specimen: ? pleural right Clinical Diagnosis: ? FL Indication for Study: ?? pleural , right , LLS ?Cecilio w Cytometry DIAGNOSIS Diagnosis: CD19, CD20, CD10 and monotypic immunoglobulin light chain restricted B- cell population identified. see discussion Electronically signed by: ?Iain Draper MD Verified: ??02/25/2021 14:23 ??Hematopathologist Performed at: ??-[facility] Dept. of Pathology, [place], [place] DISCUSSION Cell viability was 99% as assessed by 7-AAD exclusion. The specimen contained a pop ulation of CD19, CD20, and CD10 positive B lymphocytes that had a monotypic staining pattern for kappa immun oglobulin light chain. NOTE The findings support th e diagnosis of lymphoma and indicate B-cell phenotype. The most frequent types of lymphoma that exhibit CD10 positive B-cell phenotype includes follicular lymphom a, diffuse large B-cell lymphoma and Burkitt lymphoma. Morphologic correlation is required to distinguish among these possibilities. Flow analysis is an ancillar y study. A definite diagnosis requires correlation with the morphologic features of this process and if necessary, correlation with other ancillary studies like immu nohistochemistry, enzyme cytochemistry and/or cyto/ molecular genetics. This test was developed and its performance pamela acteristics determined by the Clinical Flow Cytometry Lab oratory at [facility]. It has not been cleared or approve d by the U.S. Food and Drug Administration. ??The FDA has determined that such cleara nce or approval is not necessary. ??This test is used for clinical purposes. ??It po uld not be regarded as investigational or for research. . DISCUSSION This laboratory is certifie d under the Clinical Laboratory Improvement Act of 1988 (CLIA) as qualified to perform high complexity clinic al laboratory testing. SPECIMEN PROCESSING [id number] Cells for immunophenotypic a nalysis were derived from pleural fluid. CD45 vs side scatter gating was utilized to identify a lymphoid analysis region that comprises approximately 93-97% of all cells. The following markers were a ssessed: CD2, CD3, CD4, CD5, CD7, CD8, CD10, CD19, CD20, CD23, CD38, CD45, CD56, FMC-7, kappa light chain, and lambd a light chain. 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
--- OUTSIDE RECORDS SUMMARY | 2022-05-21 01:03 | XMS_ITS | Encounter Summary ---
:1950 Author Organization [facility] [place] [address] Care Team Providers Name Role Phone Unavailable Primary Care Provider Unavailable Encounter Details Date Type Department Care Team Description 03/13/2021 Hospital Encounter Hematology and Grade 2 follicular Oncology at [facility] [place] [address] Social History Tobacco Use Types Packs/Day [...] 03/20/2021 (FLONASE) 50 mcg/actuation Nare route daily. [place], Suspension cetirizine (ZyrTEC) 10 mg Take 10 [...] Office Visit Hematology and Oncology Jackie Dillon, MARKETING DATABASE CONSULTANT [facility] HEMATOLOGY/[facility] [place] [facility]. [facility], [place] [address] (Wo rk) 06/16/2022 Infusion Hematology and Oncology documented as of this encounter Procedures Procedure Name Priority Date/Time Associated Comments Diagnosis IMMUNOGLOBULIN FREE STAT 03/13/2021 9:27 Grade 2 follicular Results for this LIGHT CHAINS, SERUM AM EDT lymphoma of lymph pro cedure are in nodes of multiple the result s regions section. HC IGA, SERUM STAT 03/13/2021 9:27 Grade 2 follicular Resul ts for this AM EDT lymphoma of lymph procedure are in nodes of multiple the result s regions section. IMMUNOFIXATION STAT 03/13/2021 9:27 Results fo r this ELECTROPHORESIS AM EDT procedure ar e in the results section. HEMOGRAM STAT 03/13/2021 9:27 Grade 2 follicular Result s for this AM EDT lymphoma of lymph procedure are in nodes of multiple the result s regions section. DIFFERENTIAL, AUTOMATED STAT 03/13/2021 9:27 Grade 2 follic ular Results for this AM EDT lymphoma of lymph procedure are in nodes of multiple the result s regions section. HC HEPATITIS C ANTIBODY STAT 03/13/2021 9:27 Grade 2 follic ular Results for this AM EDT lymphoma of lymph procedure are in nodes of multiple the result s regions section. HC HEPATITIS B CORE AB STAT 03/13/2021 9:27 Grade 2 follicu lar Results for this AM EDT lymphoma of lymph procedure are in nodes of multiple the result s regions section. HC VENIPUNCTURE STAT 03/13/2021 9:27 Grade 2 follicular Res ults for this AM EDT lymphoma of lymph procedure are in nodes of multiple the result s regions section. HC HEPATITIS B SURFACE STAT 03/13/2021 9:27 Grade 2 follicu lar Results for this AB AM EDT lymphoma of lymph procedure are in nodes of multiple the result s regions section. HC HEPATITIS B SURFACE STAT 03/13/2021 9:27 Grade 2 follicu lar Results for this AG AM EDT lymphoma of lymph procedure are in nodes of multiple the result s regions section. HC CBC,PLT & AUTO DIFF STAT 03/13/2021 9:27 Grade 2 follicu lar AM EDT lymphoma of lymph nodes of multiple regions HC URIC ACID, SERUM STAT 03/13/2021 9:27 Grade 2 follicular Results for this AM EDT lymphoma of lymph procedure are in nodes of multiple the result s regions section. HC SERUM PROT. STAT 03/13/2021 9:27 Grade 2 follicular Resu lts for this ELECTROPHORESIS AM EDT lymphoma of lymph procedu re are in nodes of multiple the result s regions section. HC LACTIC DEHYDROGENASE STAT 03/13/2021 9:27 Grade 2 follic ular Results for this AM EDT lymphoma of lymph procedure are in nodes of multiple the result s regions section. COMPREHENSIVE METABOLIC STAT 03/13/2021 9:27 Grade 2 follic ular Results for this PANEL (NON-FASTING) AM EDT lymphoma of lymph pro cedure are in nodes of multiple the result s regions section. documented in this encounter Results Immunofixation Electrophoresis (03/13/2021 9:27 AM EDT) P athologist Signature LEDA See Note [facility] Comment: LEDA shows no evidence of a monoclonal im munoglobulin. See scanned report. Dr. Iain Draper Specimen Anatomical Collection Method Collection Time Receive d Time (Source) Location / / Volume Laterality Blood Venous Draw / 03/13/2021 9:27 AM 03/13/20 21 9:51 Unknown EDT AM EDT Narrative This result has an attachment that is no t available. Resulting Agency Comment Spec In Lab Bina Monique MD CHEMISTRY ORDERABLES Performing Organization Address City/State/[place] [address] Differential, Automated (03/13/2021 9:27 AM EDT) P athologist Signature Neutrophils % 59.0 % [facility] Neutr Abs (ANC) 2.51 1.70 - [facility] 6.10 [facility] x10(3)/[facility] LABORATORY Lymphocytes % 30.4 % [facility] Lymphocytes Abs 1.3 0.9 - 3.2 [facility] x10(3)/[facility] LABORATORY Monocytes % 7.5 % [facility] Monocyte Abs 0.3 0.3 - 0.9 [facility] x10(3)/[facility] LABORATORY Eosinophils % 2.4 % [facility] Eosinophils Abs 0.1 0.0 - 0.4 [facility] x10(3)/[facility] LABORATORY Basophils % 0.7 % [facility] Basophils Abs 0.0 0.0 - 0.1 [facility] x10(3)/[facility] LABORATORY Immature Gran % 0.00 % [facility] Comment: Immature granulocytes(IG's)percentage an d absolute count will include metamyelocytes, myelocytes, and promyelo cytes. Blood smears from CBCs yielding IG's will be scanned manually for concor dance. If this scan disagrees with the automated IG or if promyelocytes are not ed, a manual differential will be performed. [place] Gran Abs 0.00 0.00 - 0.04 x10(3)/[facility] MAR Y [facility] Specimen Anatomical Collection Method Collection Time Receive d Time (Source) Location / / Volume Laterality Blood 03/13/2021 9:27 AM 9:34 EDT AM EDT Resulting Agency Comment Spec In Lab Bina Monique MD HEMATOLOGY ORDERABLES Performing Organization Address City/[facility]/[place] [address] (ABNORMAL) Hemogram (03/13/2021 9:27 AM EDT) athologist Signature WBC 4.2 4.0 - 9.5 [facility] x10(3)/[facility] LABORATORY RBC 4.01 4.00 - [facility] 5.21 [facility] x10(6)/[facility] LABORATORY Hemoglobin 12.1 11.7 - [facility] 15.5 gm/dL [facility]ORATORY Hematocrit 36.2 35.7 - [facility] 45.8 % [facility] MCV 90.3 82.6 - [facility] 94.4 [facility] LABORATORY MCH 30.2 27.1 - [facility] 32.0 pg [facility] LABORATORY MCHC 33.4 31.7 - [facility] 35.0 gm/dL [facility] LABORATORY Platelets 94 (L) 145 - 357 [facility] x10(3)/[facility] LABORATORY RDWSD 44.5 37.0 - [facility] 46.0 [facility] LABORATORY RDWCV 13.5 11.5 - [facility] 14.1 % [facility] LABORATORY MPV 9.9 7.6 - 12.9 [facility] LABORATORY nRBC % Auto 0.0 % [facility] nRBC Abs Auto 0.000 0.000 - [facility] 0.000 [facility] x10(3)/[facility] LABORATORY Specimen Anatomical Collection Method Collection Time Receive d Time (Source) Location / / Volume Laterality Blood 03/13/2021 9:27 AM 9:34 EDT AM EDT Resulting Agency Comment Spec In Lab Bina Monique MD HEMATOLOGY ORDERABLES Performing Organization Address City/State/[place] [address] (ABNORMAL) Comprehensive metabolic panel (non-fasting) (03/13/2021 9:27 AM EDT) athologist Signature Glucose Lvl 105 65 - 199 [facility] mg/dL [facility] Comment: Diabetes: >=200 mg/dL plus symp toms BUN 19 (H) 8 - 18 mg/dL [facility] Creatinine 0.97 0.70 - 1.20 mg/dL [facility] LABORATORY Sodium 142 135 - 145 mmol/L [facility] Potassium 4.3 3.5 - 5.0 mmol/L [facility] Comment: Please note: ??Patients with WBC >100,00 0 may have falsely elevated Potassium levels. ??For accurate Potassium quantif ication in these patients send serum separator tube (gold top) for subsequent determinations. ??Contact the Clinical Chemistry Laboratory if there are any qu estions. Chloride 106 98 - 107 mmol/L [facility] CO2 27 22 - 31 mmol/L [facility] Anion Gap 9 5 - 15 mmol/L [facility] Calcium 9.4 8.5 - 10.5 mg/dL [facility] Total Protein 6.2 6.1 - 8.0 gm/dL [facility] Albumin 4.2 3.2 - 5.2 gm/dL [facility] AST 22 0 - 30 unit/L [facility] ALT 16 0 - 30 unit/L [facility] Alk Phos 95 35 - 105 unit/L [facility] Total Bilirubin 0.6 0.2 - 1.3 mg/dL [facility] Estimated GFR 58 (L) >=60 mL/min/1.73 m?? [facility] Comment: This patient? s estimated glomerular filtration rate (eGFR) is between 58 mL/min/1.73 m2 (patients with less muscl e mass) and 68 mL/min/1.73 m2 (patients with more muscle mass) [...] (Source) Location / / Volume Laterality Blood 03/13/2021 9:27 AM 9:34 EDT AM EDT Resulting Agency Comment Spec In Lab Bina Monique MD CHEMISTRY ORDERABLES Performing Organization Address City/State/ZIP Code Phon e Number [address] (ABNORMAL) Immunoglobulins, Quantitative (03/13/2021 9:27 AM EDT) P athologist Signature IgG 376 (L) 700 - 1,600 [facility] mg/dL [facility] Comment: Pediatric Reference Intervals obtained f rom the Caliper Reference Interval project. http://www.Tellwiki.ca/caliperp roject/index.html IgA 29 (L) 70 - 400 mg/dL [facility] IgM 15 (L) 40 - 230 mg/dL [facility] Specimen Anatomical Collection Method Collection Time Receive d Time (Source) Location / / Volume Laterality Blood 03/13/2021 9:27 AM 9:34 EDT AM EDT Resulting Agency Comment Spec In Lab Bina Monique MD CHEMISTRY ORDERABLES Performing Organization Address City/State/[place] [address] Lactate Dehydrogenase (03/13/2021 9:27 AM EDT) P athologist Signature LDH 177 110 - 220 [facility] unit/L [facility] Specimen Anatomical Collection Method Collection Time Receive d Time (Source) Location / / Volume Laterality Blood 03/13/2021 9:27 AM 9:34 EDT AM EDT Resulting Agency Comment Spec In Lab Bina Monique MD CHEMISTRY ORDERABLES Performing Organization Address City/[facility]/ZIP Code Phon e Number [address] Uric acid (03/13/2021 9:27 AM EDT) P athologist Signature Uric Acid 6.4 2.5 - 6.5 [facility] mg/dL [facility] Specimen Anatomical Collection Method Collection Time Receive d Time (Source) Location / / Volume Laterality Blood 03/13/2021 9:27 AM 9:34 EDT AM EDT Resulting Agency Comment Spec In Lab Bina Monique MD CHEMISTRY ORDERABLES Performing Organization Address City/[facility]/ZIP [place] [address] (ABNORMAL) Protein Electrophoresis, serum (03/13/2021 9:27 AM EDT) Patholo gist Method Time Signature Total Prot 5.9 (L) 6.1 - 8.0 [facility] Elec gm/dL [facility] Albumin Elect 4.02 3.60 - 6.00 [facility] gm/dL [facility] Alpha1-Globul 0.19 0.10 - 0.30 [facility] in gm/dL [facility] Alpha2-Globul 0.71 0.40 - 0.90 [facility] in gm/dL [facility] Beta Globulin 0.69 0.50 - 1.00 [facility] gm/dL [facility] Gamma 0.28 (L) 0.50 - 1.30 [facility] Globulin gm/dL [facility] M1 Band Comments None [facility] Below Detected [facility] SPEP Comments See Note [facility] Comment: 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 Immunofixation (LEDA) and quantitative immunoglobulin (G AM) testing will be performed on this sample. Specimen Anatomical Collection Method Collection Time Receive d Time (Source) Location / / Volume Laterality Blood 03/13/2021 9:27 AM 9:34 EDT AM EDT Narrative This result has an attachment that is no t available. Resulting Agency Comment Spec In Lab Bina Monique MD CHEMISTRY ORDERABLES Performing Organization Address City/[facility]/ZIP [place] [address] (ABNORMAL) Free Light Chains, Serum (03/13/2021 9:27 AM EDT) Analysis Performed At Patho logist Time Signature [place] Free 0.69 (L) 0.72 - [facility] Light Chain 2.75 mg/dL [facility] Lambda Free 0.76 0.57 - [facility] [place] Light Chain 2.15 mg/dL [facility] [place] Lambda 0.9079 0.4000 - [facility] [place] FLC Ratio 2.5800 [facility] Specimen Anatomical Collection Method Collection Time Receive d Time (Source) Location / / Volume Laterality Blood 03/13/2021 9:27 AM 9:34 EDT AM EDT Resulting Agency Comment Spec In Lab Bina Monique MD CHEMISTRY ORDERABLES Performing Organization Address City/[facility]/ZIP [facility] [place] Number [address] Hepatitis B Core Antibody, Total (03/13/2021 9:27 AM EDT) Analysis Performed At Patho logist Time Signature Hep B Core Ab Negative Negative [facility] Specimen Anatomical Collection Method Collection Time Receive d Time (Source) Location / / Volume Laterality Blood 03/13/2021 9:27 AM 9:34 EDT AM EDT Resulting Agency Comment Spec In Lab Bina Monique MD CHEMISTRY ORDERABLES Performing Organization Address City/[facility]/[place] [address] Hepatitis B Surface Antibody (03/13/2021 9:27 AM EDT) P athologist Signature HepB Surface 3.8 IU/L [facility] Ab Quant [facility] Comment: HepB Surface Ab Quant: Unvaccinated: < 8.5 IU/L Vaccinated: > 11.5 IU/L HepB Surface Ab Negative [facility] Comment: Patient is presumed to be not vaccinated or immune to HBV infection. Expected Results: Vaccinated: Positive Unvaccinated: Negative Specimen Anatomical Collection Method Collection Time Receive d Time (Source) Location / / Volume Laterality Blood 03/13/2021 9:27 AM 9:34 EDT AM EDT Resulting Agency Comment Spec In Lab Bina Monique MD IMMUNOLOGY ORDERABLES Performing Organization Address City/[facility]/ZIP Code Phon e Number [address] Hepatitis B Surface Antigen (03/13/2021 9:27 AM EDT) Analysis Performed At Patho logist [place] Signature HepB Surface Negative Negative [facility] LABORATORY Specimen Anatomical Collection Method Collection Time Receive d Time (Source) Location / / Volume Laterality Blood 03/13/2021 9:27 AM 9:34 EDT AM EDT Resulting Agency Comment Spec In Lab Bina Monique MD CHEMISTRY ORDERABLES Performing Organization Address City/State/ZIP [facility] [place] Number [address] Hepatitis C Antibody (03/13/2021 9:27 AM EDT) Analysis Performed At [facility] Signature Hepatitis C Ab Negative Negative [facility] Specimen Anatomical Collection Method Collection Time Receive d Time (Source) Location / / Volume Laterality Blood 03/13/2021 9:27 AM 9:34 EDT AM EDT Resulting Agency Comment Spec In Lab Bina Monique MD IMMUNOLOGY ORDERABLES Performing Organization Address City/State/ZIP [facility] [place] Number [address] HIV Screen, 4th Generation ([facility]/CGP/APD/NLH) (03/13/2021 9:27 AM EDT) Analysis Performed At [facility] Signature HIV-1/2 Ab and Negative Negative [facility] LABORATORY Comment: This 4th Generation HIV test screens for the presence of the HIV-1 p24 antigen as well as antibodies reactive against H IV-1 and HIV-2. A negative screen does not rule out an acute HIV infection. If acute HIV infection is suspected, testing should be repeated in 2 - 3 week s or HIV nucleic acid testing performed. 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
--- OUTSIDE RECORDS SUMMARY | 2022-05-21 01:03 | XMS_ITS | Encounter Summary ---
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 [facility] Huseyin Baez, PA [facility] Interventionl Rad Procedures IR Pleurx Drain Placement Thoracic [facility] [place] [address] [place] [address] Referral ID Status Reason Start Date Expiration Date Visits V isits Requested Authorized [id number] Closed Specialty 03/20/2021 09/17/2022 1 1 Service Requested Reason for Visit Auth/Cert Specialty Diagnoses / Procedures Referred By Contact Refer red To Contact Diagnoses Pleural effusion PLEURAL EFFUSION Procedures EMERGENCY OBSVO Referral ID Status Reason Start Date Expiration Date Visits Requ ested Visits Authorized [id number] 1 1 Encounter Details Date Type Department Care Team Description 03/20/2021 [place] [facility] [place]ukhjinder Burton, Grade 2 follicular [facility] lymphoma of lymph [facility] [id number] [place], [place] [phone] [facility] Social History Tobacco Use Types Packs/Day Years [...] Sign Reading Time Taken Comments Blood Pressure 148/68 03/20/2021 4:15 PM EDT Pulse 66 03/20/2021 2:17 PM EDT Temperature 36.5 ??C (97.7 ??F) 03/20/2021 3:45 PM EDT Respiratory Rate 16 03/20/2021 4:15 PM EDT Oxygen Saturation 96% 03/20/2021 4:15 PM EDT Inhaled Oxygen Concentration - - Weight - - Height - - Body Mass Index - - documented in this encounter Discharge Instructions Discharge InstructionsNoemi Chaudhry RN - 03/20/2021 3:19 PM EDT [facility] Vascular and Interventional Radiology Discharge Instructions For Pleurx Drainage Catheter Care MAKE SURE TO ASK YOUR NURSE FOR YOUR BOX OF SUPPLIES, INFORMATIONAL CD AND BOOKLET BEFORE YOU LEAVE. The catheter was inserted for you to drain the extra fluid that builds up around your lung. The partof the catheter that is inside your chest has several holes so fluid can enter the catheter. The valve at the outer end of the catheter prevents fluid from leaking out and prevents any air from entering the catheter. Please refer to the video and written instructions about the use and care of the Pleurx Drainage Catheter before beginning the drainage procedure. Bandage: A bandage has been placed over the catheter site. It should stay in place after you go home. It consists of small gauze with a clear dressing over it. This should be changed after every drainage procedure or whenever it becomes soiled or moist. Bathing: You can shower (no tub bathing) as long as the catheter is covered by the bandages found inthe Procedure Pack. This is a self-adhesive dressing that is designed to keep fluid out. Be sure thedressing is completely and securely attached and the catheter and gauze pads are all contained underneath it. Pain: Apply ice bag to site (s) at 30 minute intervals (30 minutes on and 30 minutes off) for 24 hours. May use as needed for pain and/or bruising after 24 hours. What to avoid: Never use scissors or other sharp objects around your PleurX Catheter. If you accidentally cut the catheter or the catheter becomes partially dislodged you should: ??? Pinch the catheter closed between your fingers. ??? Slip the slide clamp (found in the drainage kit) over the catheter and push the catheter completely into the small end of the clamp, as close to your skin as possible. ??? Contact your healthcare provider immediately. When to contact your healthcare provider: ??? Once daily drainage is 125 ml???s or less, begin draining every other day. Once drainage is 75 ml???s or less,begin draining every 3-4 days. After 2 weeks of draining the Pleurx once or twice a week, contact your Oncologist. ??? If you dislodge the catheter completely you should place the self-adhesive dressing over the site and contact us immediately. If you are instructed to go to your local emergency department, please bring these instructions with you and give them to the doctor caring for you. Please have someone drive you to the local Emergency Department. ??? If you see any redness, swelling or fluid around the catheter when you remove the dressing, finish the drainage procedure then contact your healthcare provider. ??? If you develop bruising, redness, or drainage around the catheter. ??? If you notice the color of the fluid is a lot different than usual. ??? If you notice that you have increasing difficulty breathing or more pain. ??? If you develop a fever greater than or equal to 101 degrees Fahrenheit. ??? If you develop shaking chills. When to call the Interventional Radiology Department: Please call with any questions or concerns. Ifit is during regular office hours, please call [phone]. If it is after regular office hours, oron weekends or holidays, please call [phone] and ask to speak to the Prototype Machinist on callfor Interventional Radiology. You may resume your regular diet as tolerated. IV site -- slight redness, or tenderness is normal, you can use a warm compress. If tenderness and redness increases or foul drainage occurs, please contact your M. D. Revised 04/26/19 documented in this encounter Medications at Time [...] documented as of this encounter Progress Notes Noemi Chaudhry RN - 03/20/2021 1:22 PM EDT [facility] NURSING DATABASE Name: BRIAN IBANEZ Date of : 1950 AGE: 70 y.o. Address: [address] [place], [place] [address] [address] (home) [phone] (work) Mobile: Telephone Information: Referring Provider: Huseyin Baez REASON FOR VISIT: Order Questions Answers Where will study be performed? [facility] Radiology [120] Body Part Chest Laterality Right Reason for exam and clinical history: recurrent Right-sided malignant pleural effusion, needs pleurxcatheter placement for management Is the patient on anticoagulant / antiplatelet therapy ? No Allergies Allergen Reactions ??? Sulfa (Sulfonamide Antibiotics) Pertinent PMH: Patient Active Problem List Diagnosis Code ??? 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 Hypertension I10 ??? Hypothyroidism E03.9 ??? Hypercholesterolemia E78.00 Date/Procedure ?Meds Given/Comments 02/24/21 thora-1600 Local only 03/13/21 Mediport placement Ancef 2 g IV; Fentanyl 150 mcg IV; Versed 3 mg IV 03/20/21 Right Thoracic pleurx placement :1615 drained in room Ancef 2 gm IV, Local only. ? 1450 to procedure room 4 via stretcher. Remained on stretcher lying on left side. BP and pulse ox monitors in place. Local only per pt request. Laboratory Results: Lab Results Component Value Date CREATININE 0.97 03/13/2021 Lab Results Component Value Date K 4.3 03/13/2021 Lab Results Component Value Date PLATELET 156 03/19/2021 documented in this encounter Procedure Notes Krishna Rivas PA - 03/20/2021 1:52 PM EDT IR PRE-PROCEDURE NOTE Name: Brian Ibanez Date of : 1950 Age: 70 y.o. Indication: Recurrent malignant right pleural fluid. Planned Procedure: Tunneled pleural drainage catheter. Chief Complaint/Diagnosis: 70 y.o. female with lymphoma. Has had thoracentesis in the past, found tohave malignant recurrent pleural fluid. Planning tunneled pleural drainage catheter for alleviation of symptoms. ?? Patient Active Problem List Diagnosis Code ??? 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 Hypertension I10 ??? Hypothyroidism E03.9 ??? Hypercholesterolemia E78.00 Allergies Allergen Reactions ??? Sulfa (Sulfonamide Antibiotics) Current Outpatient Medications on File Prior to Encounter Medication Sig Dispense Refill ??? tolterodine LA (Detrol LA) 2 mg Capsule, Sust. Release 24 hr Take 2 mg by mouth daily. ??? lisinopriL-hydrochlorothiazide (zestoretic) 20-25 mg Tablet Take 1 tablet by mouth daily. ??? fluticasone propionate (FLONASE) 50 mcg/actuation [place], Suspension 1 spray by Each Nare route [...] facility-administered medications on file prior to encounter. Labs: Lab Results Component Value Date/Time WBC 3.4 (L) 03/19/2021 07:27 AM ANC 2.8 01/13/2021 12:00 AM HCT 33.6 (L) 03/19/2021 07:27 AM PLATELET 156 03/19/2021 07:27 AM BUN 19 (H) 03/13/2021 09:27 AM CREATININE 0.97 03/13/2021 09:27 AM Imagin03/17/2021 PET/CT shows large recurrent right pleural fluid. Physical Exam: Cardiac: RRR, no murmur Respiratory: Decreased breath sounds on Right, no wheezes/rales/rhonchi ASA: Class II Mallampati Class: II Allergies: Reviewed Medications:Reviewed Assessment / Plan: 70-year-old with lymphoma with recurrent malignant right pleural fluid. Planning placement of tunneled pleural drainage catheter for symptom relief. documented in this encounter Plan of Treatment Upcoming Encounters Date Type Specialty Care Team Description 06/16/2022 Office Visit Hematology and Oncology Jackie Dillon, [facility] ER HEMATOLOGY/[facility] DEPT. [place], [place] [address] (Wo rk) 06/16/2022 Infusion Hematology and Oncology documented as of this encounter Procedures Procedure Name Priority Date/Time Associated Comments Diagnosis IR PLEURX DRAIN PLACEMENT Routine 03/20/2021 3:45 Grade 2 foll icular Results for this THORACIC PM EDT lymphoma of lymph procedure are in nodes of multiple the result s regions section. IMMUNOPHENOTYPING FLOW Routine 03/20/2021 3:20 Grade 2 follicu lar Results for this CYTOMETRY PM EDT lymphoma of lymph procedure are in nodes of multiple the result s regions section. documented in this encounter Results IR Pleurx Drain Placement Thoracic (03/20/2021 3:45 PM EDT) Anatomical Region Laterality Modality X-Ray Angiography Specimen (Source) Anatomical Location Collection Method / Collectio n Time Received Time / Laterality Volume Narrative 03/20/2021 4:36 PM EDT Interventional Radiology Procedure Note Procedure: Ultrasound-guided tunneled ch est drain implant Indication for procedure: Follicular lym phoma, shortness of breath, recurrent pleural fluid Procedure summary: 1.) Limited thoracic ultrasound 2.) Ultrasound-guided tunneled pleural drain implant Pre-procedure: Initial thoracic ultrasou nd was performed. A safe window for chest drain placement was identified in the right posterior chest. Informed consent for the procedure inclu ding risks, benefits and alternatives was obtained. Active time-o ut was performed prior to the procedure. The site was prepared and emily ped using maximal sterile barrier technique. Method of sedation: None Technique: Under real-time ultrasound gu idance, local anesthetic was administered down to the pleura. A small incision was made in the skin with a #11 scalpel. An 18 ga needle was advanced into the pleural space with return of pleural fluid. A 0.035 J guidewire was placed and the needle removed. Subcutaneous tissue on [facility] posterior chest wall was anesthetized inferolateral to the access site. A trocar was then used to advance the catheter subcutaneously to t he pleural access site. Serial dilation of the pleural access point was performed and a peel-away sheath was advanced over the wire. The catheter was passed into the sheath as it was peeled away. The catheter position i n the pleural cavity was confirmed with ultrasound. The pleural access site was closed with 4-0 vicryl and the catheter was secured to the skin. 16 00 ml pale yellow fluid was drained. Drainage was disconnected and a clean, sterile dressing was applied. Medications: Please see MAR Estimated blood loss: 5 ml Complications: No immediate Specimens: None Impression: Ultrasound-guided tunneled r ight chest drain implant with removal of 1600 ml pale yellow pleural f luid. Service provider: Evangelista Rivas PA-C. Attending of record: Tyshawn Ansari DO. ?? I was not present. ?? Sukhjinder Burton MD IMG IR ORDERABLES Immunophenotyping Flow Cytometry (03/20/2021 3:20 PM EDT) Component Value Ref Test Analysis Performed At [facility] Range Method Time Signature Immunophenotyping See MAU Flow Hector [facility] Comment: When completed by the Pathologist, the F low Cytometry Report ([id number]) will display under the Pathology Result s section within eDH. Specimen Anatomical Collection Method Collection Time Receive d Time (Source) Location / / Volume Laterality Other 03/20/2021 3:20 PM 3:44 EDT PM EDT Resulting Agency Comment Spec In Lab Sukhjinder Burton MD HEMATOLOGY ORDERABLES Performing Organization Address City/State/ZIP [place] [address] documented in this encounter Visit Diagnoses Diagnosis 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 documented in this encounter Administered Medications Inactive Administered Medications - up to 3 most recent administrations Medication Order MAR Action Action Date Dose Rate Site ceFAZolin (Ancef) 2 g in New Bag 03/20/2021 3:20 PM EDT 2 g 200 mL/hr dextrose 5% 100 mL infusion 2 g, Intravenous, ONCE PRN, 1 dose, Starting on Tue03/20/21 at 1517, Until Tue03/20/21 at 1550, Administer over 30 Minutes, prophylaxis, Angio/IR (Intra-Procedure), Indication for (Active or Suspected): Prophylaxis ceFAZolin (Ancef) 2 gram/100 mL infusion Soln 1 dose, Starting on Tue03/20/21 at 1518, Until 03/11 at 1550, MANDI BOUDREAUX: willainet override lidocaine (Xylocaine) 1% (10 mg/mL) injection Given 3:18 PM EDT 10 mg 10 mg 10 mg, Subcutaneous, ONCE, 1 dose, On Tue03/20/21 at 1500, For use in Interventional Radiology (IR) only for procedure with direct provider supervision and verbal order., Angio/IR (Day of Procedure), Routine lidocaine-EPINEPHrine (1% - 1:100,000) Given 03/20/2021 3:24 PM EDT 50 mLs injection 50 mL 50 mL, Intradermal, ONCE, 1 dose, On Tue03/20/21 at 1500, For use in Interventional Radiology (IR) only for Radiofrequency Ablation of Saphenous Vein procedure with direct provider supervision and verbal order., Angio/IR (Day of Procedure), Routine documented in this encounter
--- OUTSIDE RECORDS SUMMARY | 2022-05-21 01:03 | XMS_ITS | Encounter Summary ---
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 [address] Referral ID Status Reason Start Date Expiration Date Visits V isits Requested Authorized [id number] Closed Specialty 10/15/2020 04/13/2021 1 1 Service Requested Encounter Details Date Type Department Care Team Description 10/17/[address] [place] [facility] [place] Mendieta, Grade 2 follicular [facility] [employer] lymphoma of lymph [facility] nodes of multiple [place] [address] [place] [id number] HEMATOLOGY/ONCOL [phone] [address] Social History Tobacco Use Types Packs/Day Years [...] 20 03/20/2021 (FLONASE) 50 mcg/actuation Nare route [place], Suspension daily. cetirizine (ZyrTEC) 10 mg Take [...] Office Visit Hematology and Oncology Jackie Dillon, [employer] [facility] HEMATOLOGY/ONCOL [place] DEPT. [place], [place] [address] (Wo rk) 06/16/2022 Infusion Hematology and Oncology documented as of this encounter Procedures Procedure Name Priority Date/Time Associated Diagnosis Comme nts CT CHEST ABDOMEN Routine 10/17/2020 1:33 PM Grade 2 follicular Results for this PELVIS W CONTRAST EDT lymphoma of lymph proce dure are in (GENERIC) nodes of multiple the result s regions section. documented in this encounter Results CT Chest Abdomen Pelvis w Contrast (Generic) (10/17/2020 1:33 PM EDT) Anatomical Region Laterality Modality Abdomen, Pelvis Computed Tomography Specimen (Source) Anatomical Location Collection Method / Collectio n Time Received Time / Laterality Volume Addenda Addendum by Neftali Vargas MD on 0 10/28/2020 11:32 AM EDT --------ADDENDUM #1-------- The following indicator lesions were ludin sured using RECIST 1.1 Criteria: Prior study date: 02/11/2020 Current scan date: 10/17/2020 Lesion #1: LEFT axillary lymph node ??Prior study: Series 4, Image 14, 17 x 20 mm ??Current study: Series 3, Image 24, 16 x 20 mm Lesion #2: RIGHT para-aortic lymph node ??Prior study: Series 4, Image 104, 19 x 27 mm ??Current study: Series 3, Image 140, 2 5 x 31 mm Lesion #3: LEFT para iliac lymph node ??Prior study: Series 4, Image 140, 32 x 56 mm ??Current study: Series 3, Image 176, 3 4 x 64 mm Thank you for letting us participate in the care of this patient. ??If you are a health care provider and have any questi ons regarding this report, please contact the number below. ??For patients who have questions please contact the health career and technology education teacher that requested your imaging first. ? --------ORIGINAL REPORT -------- EXAMINATION: CT CHEST ABDOMEN PELVIS W C ONTRAST (GENERIC) CLINICAL HISTORY: Hematologic malignancy , surveillance Non-Hodgkin's lymphoma TECHNIQUE: Helical CT of the chest, abdo men, and pelvis was performed following the intravenous administration of contra st. 104 cc of Omnipaque 350. Oral contrast was administered. COMPARISON: 02/11/2020 FINDINGS: Chest: Lungs and large airways: No suspicious p ulmonary nodules. Trace nonspecific ill-defined small focus of opacification in the inferolateral aspect of the RIGHT middle lobe. Pleura: No effusion. Heart/vasculature: No pericardial effusi on. Lymph nodes: Bilateral axillary adenopat hy, as noted previously,. Some of the lymph nodes have slightly decreased in c aliber. None have increased. Mediastinum and jared: Slight decrease in the RIGHT hilar adenopathy. Grossly stable subcarinal, prevascular adenopath y, and mediastinal adenopathy. Abdomen/pelvis: Liver: Normal size and attenuation witho ut lesions. Bile ducts: Nondilated. Gallbladder: No calcified gallstones. No rmal caliber wall. Pancreas: Normal attenuation without blessing pedro luis dilatation. Spleen: Normal. Adrenals: Normal. Kidneys: New parapelvic fat stranding RI GHT kidney. The fat stranding extends along the course of the RIGHT ureter to the level of the RIGHT hemipelvis, where it becomes enmeshed with adenopathy. On the LEFT, similarly peripelvic fat stranding and fat stranding surrounding the LEFT ureter to the level of the mid pelvis where it becomes enmeshed in reinier opathy. 2 stable LEFT renal cysts Urinary Bladder: Decreased bladder volum e with increased pelvic sidewall adenopathy Vasculature: No aneurysm. Lymph Nodes: ??Increased para-aortic and bilateral para iliac adenopathy. Grossly stable bilateral inguinal adenopathy.. T he largest lymph node is along the LEFT pelvic sidewall, measuring approximately 3.4 x 6.4 cm. Bowel: Nondilated, no wall thickening. ? ? Peritoneum and mesentery: Presacral fat stranding, new since the previous study Abdominal wall: Normal. Reproductive organs: Normal. Osseous structures: No suspicious lesion s. IMPRESSION: 1. ??Diffuse adenopathy, in the chest, a bdomen, pelvis, as described. Some of the lymph nodes in the axillary have lightly decreased. However, other lymph nodes in the pelvis have increased. 2. ??New bilateral renal pelvic fat stra nding and bilateral periureteral fat stranding. The mid to distal ureters bec ome enmeshed in the adenopathy of the pelvis. Thank you for letting us participate in the care of this patient. ??If you are a health care provider and have any questi ons regarding this report, please contact the number below. ??For patients who have questions please contact the health career and technology education teacher that requested your imaging first. ? Electronically signed by: Neftali zamora MD, [facility] ([phone]), at 10/17/2020 1:48 PM Impressions 10/17/2020 1:48 PM EDT 1. ??Diffuse adenopathy, in the chest, a bdomen, pelvis, as described. Some of the lymph nodes in the axillary have lightly decreased. However, other lymph nodes in the pelvis have increased. 2. ??New bilateral renal pelvic fat stra nding and bilateral periureteral fat stranding. The mid to distal ureters bec ome enmeshed in the adenopathy of the pelvis. Thank you for letting us participate in the care of this patient. ??If you are a health care provider and have any questi ons regarding this report, please contact the number below. ??For patients who have questions please contact the health career and technology education teacher that requested your imaging first. ? Electronically signed by: Neftali zamora MD, [facility] ([phone]), at 10/17/2020 1:48 PM Narrative 10/17/2020 1:48 PM EDT EXAMINATION: CT CHEST ABDOMEN PELVIS W CONTRAST (GENERIC) CLINICAL HISTORY: Hematologic malignancy , surveillance Non-Hodgkin's lymphoma TECHNIQUE: Helical CT of the chest, abdo men, and pelvis was performed following the intravenous administration of contra st. 104 cc of Omnipaque 350. Oral contrast was administered. COMPARISON: 02/11/2020 FINDINGS: Chest: Lungs and large airways: No suspicious p ulmonary nodules. Trace nonspecific ill-defined small focus of opacification in the inferolateral aspect of the RIGHT middle lobe. Pleura: No effusion. Heart/vasculature: No pericardial effusi on. Lymph nodes: Bilateral axillary adenopat hy, as noted previously,. Some of the lymph nodes have slightly decreased in c aliber. None have increased. Mediastinum and jared: Slight decrease in the RIGHT hilar adenopathy. Grossly stable subcarinal, prevascular adenopath y, and mediastinal adenopathy. Abdomen/pelvis: Liver: Normal size and attenuation witho ut lesions. Bile ducts: Nondilated. Gallbladder: No calcified gallstones. No rmal caliber wall. Pancreas: Normal attenuation without blessing pedro luis dilatation. Spleen: Normal. Adrenals: Normal. Kidneys: New parapelvic fat stranding RI GHT kidney. The fat stranding extends along the course of the RIGHT ureter to the level of the RIGHT hemipelvis, where it becomes enmeshed with adenopathy. On the LEFT, similarly peripelvic fat stranding and fat stranding surrounding the LEFT ureter to the level of the mid pelvis where it becomes enmeshed in reinier opathy. 2 stable LEFT renal cysts Urinary Bladder: Decreased bladder volum e with increased pelvic sidewall adenopathy Vasculature: No aneurysm. Lymph Nodes: ??Increased para-aortic and bilateral para iliac adenopathy. Grossly stable bilateral inguinal adenopathy.. T he largest lymph node is along the LEFT pelvic sidewall, measuring approximately 3.4 x 6.4 cm. Bowel: Nondilated, no wall thickening. ? ? Peritoneum and mesentery: Presacral fat stranding, new since the previous study Abdominal wall: Normal. Reproductive organs: Normal. Osseous structures: No suspicious lesion s. Procedure Note Neftali Vargas MD - 10/17/2020Form atting of this note might be different from the original. EXAMINATION: CT CHEST ABDOMEN PELVIS W C ONTRAST (GENERIC) CLINICAL HISTORY: Hematologic malignancy , surveillance Non-Hodgkin's lymphoma TECHNIQUE: Helical CT of the chest, abdo men, and pelvis was performed following the intravenous administration of contra st. 104 cc of Omnipaque 350. Oral contrast was administered. COMPARISON: 02/11/2020 FINDINGS: Chest: Lungs and large airways: No suspicious p ulmonary nodules. Trace nonspecific ill-defined small focus of opacification in the inferolateral aspect of the RIGHT middle lobe. Pleura: No effusion. Heart/vasculature: No pericardial effusi on. Lymph nodes: Bilateral axillary adenopat hy, as noted previously,. Some of the lymph nodes have slightly decreased in c aliber. None have increased. Mediastinum and jared: Slight decrease in the RIGHT hilar adenopathy. Grossly stable subcarinal, prevascular adenopath y, and mediastinal adenopathy. Abdomen/pelvis: Liver: Normal size and attenuation witho ut lesions. Bile ducts: Nondilated. Gallbladder: No calcified gallstones. No rmal caliber wall. Pancreas: Normal attenuation without blessing pedro luis dilatation. Spleen: Normal. Adrenals: Normal. Kidneys: New parapelvic fat stranding RI GHT kidney. The fat stranding extends along the course of the RIGHT ureter to the level of the RIGHT hemipelvis, where it becomes enmeshed with adenopathy. On the LEFT, similarly peripelvic fat stranding and fat stranding surrounding the LEFT ureter to the level of the mid pelvis where it becomes enmeshed in reinier opathy. 2 stable LEFT renal cysts Urinary Bladder: Decreased bladder volum e with increased pelvic sidewall adenopathy Vasculature: No aneurysm. Lymph Nodes: Increased para-aortic and b ilateral para iliac adenopathy. Grossly stable bilateral inguinal adenopathy.. T he largest lymph node is along the LEFT pelvic sidewall, measuring approximately 3.4 x 6.4 cm. Bowel: Nondilated, no wall thickening. Peritoneum and mesentery: Presacral fat stranding, new since the previous study Abdominal wall: Normal. Reproductive organs: Normal. Osseous structures: No suspicious lesion s. IMPRESSION 1. Diffuse adenopathy, in the chest, abd omen, pelvis, as described. Some of the lymph nodes in the axillary have lightly decreased. However, other lymph nodes in the pelvis have increased. 2. New bilateral renal pelvic fat strand ing and bilateral periureteral fat stranding. The mid to distal ureters bec ome enmeshed in the adenopathy of the pelvis. Thank you for letting us participate in the care of this patient. If you are a health care provider and have any questi ons regarding this report, please contact the number below. For patients w ho have questions please contact the health career and technology education teacher that requested your imaging first. Electronically signed by: Neftali torrez MD, [facility] ([phone]), at 10/17/2020 1:48 PM Venus Mendieta [employer] IMG CT ORDERABLES documented in this encounter Visit Diagnoses Diagnosis 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 documented in this encounter Administered Medications Inactive Administered Medications - up to 3 most recent administrations Medication Order MAR Action Action Date Dose Rate Site iohexoL (Omnipaque) (350 mg/mL) Given 10/17/2020 1:34 PM EDT 104 mLs injection solution 0-200 mL 0-200 mL, Intravenous, ONCE PRN, 1 dose, Starting on Tue10/17/20 at 1324, Until Tue10/17/20 at 1334, Per Protocol, Warning Vesicant/Irritant Medication , Radiology Contrast, Routine iohexoL (Omnipaque) (350 mg/mL) injection Given 10/17/2020 1:33 PM EDT 50 mLs solution 0-50 mL 0-50 mL, Oral, ONCE PRN, 1 dose, Starting on Tue10/17/20 at 1324, Until Tue10/17/20 at 1333, Per Protocol, Warning Vesicant/Irritant Medication , Radiology Contrast, Routine documented in this encounter Care Teams F[employer] Relationship Specialty Start Date End Date Jared Anna MD PCP - General 06/02/10 02/08/21 documented as of this encounter
--- OUTSIDE RECORDS SUMMARY | 2022-05-21 01:03 | XMS_ITS | Encounter Summary ---
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 [address] [place] [address] Referral ID Status Reason Start Date Expiration Date Visits V isits Requested Authorized [id number] Closed Specialty 03/05/2021 06/03/2021 1 1 Service Requested Encounter Details Date Type Department Care Team Description 03/17/2021 Hospital Encounter Nuclear Medicine at [facility] Monique rico 2 follicular Anastasia Smith MD lymphoma of lymph [facility] nod es of multiple Drive DR lyn [place], [place] HEMATOLOGY/ONCOLOG [address] Y DEPT. [phone] [place], [place] [address] Social History Tobacco Use Types [...] 03/20/2021 (FLONASE) 50 mcg/actuation Nare route daily. [place], Suspension cetirizine (ZyrTEC) 10 mg Take 10 [...] Office Visit Hematology and Oncology Jackie Dillon, SUPERVISOR DENTURE DEPARTMENT [facility] HEMATOLOGY/ONCOL [place] DEPT. [place], [place] [address] (Wo rk) 06/16/2022 Infusion Hematology and Oncology documented as of this encounter Procedures Procedure Name Priority Date/Time Associated Diagnosis Comme nts NM PET CT SKULL Routine 03/17/2021 8:45 AM Grade 2 follicular Results for this BASE TO MID-THIGH EDT lymphoma of lymph proce dure are in ([facility]) nodes of multiple the result s regions section. documented in this encounter Results NM PET CT Skull Base to Mid-thigh (03/17/2021 8:45 AM EDT) Anatomical Region Laterality Modality Positron Emission To mography (PET) Specimen (Source) Anatomical Location Collection Method / Collectio n Time Received Time / Laterality Volume Impressions 03/17/2021 10:04 AM EDT 1. ??Extensive neva involvement by lymphoma and neck, chest, abdomen, and pelvis as described above. 2. ??Diffusely increased activity throug hout the spleen which is increased in size compared to prior PET/CT, consisten t with splenic involvement by lymphoma. 3. ??Notable small FDG avid lymph nodes with a very high degree of FDG uptake (SUV max greater than 12) with represent ative nodes detailed above, are highly suspicious for lymphoma transformation a nd would be amenable to CT-guided biopsy if clinically indicated. 4. ??Large right pleural effusion, uncha nged compared to prior CT of 02/16/2021. Thank you for letting us participate in the care of this patient. ??If you are a health care provider and have any questi ons regarding this report, please contact the number below. ??For patients who have questions please contact the health home care rn that requested your imaging first. ? Electronically signed by: Allan Coates MD, [facility] ([phone]), at 03/17/2021 10:04 AM Narrative 03/17/2021 10:04 AM EDT EXAMINATION: NM PET CT STANDARD SKULL BASE TO MID-THIGH CLINICAL HISTORY: Non-Hodgkin lymphoma, staging Follicular lymphoma staging. ??Patient h as been watching weight, but now with new malignant pleural effusion. ??Compared t o outside CT TECHNIQUE: Following IV injection of 18- hhjmon-0-urklggghfono (FDG) a standard uptake of approximately 60 minutes, a no ncontrast CT scan followed by a PET scan were acquired from the base of the skull to mid thighs. The noncontrast CT was used for anatomic localization and photo n attenuation correction of the PET scan. Blood glucose level: 94 (mg/dL) FDG dose: 12.8 mCi Reference Liver mean SUV is 2.9 on the c urrent study compared to 2.8 on prior PET/CT of 09/2019. COMPARISON: CT chest 02/12/2021, CT chest abdomen and pelvis 10/17/2020, and PET/CT 10/04/2019 FINDINGS: HEAD/NECK: FDG avid adenopathy in the bilateral upp er and lower cervical and supraclavicular regions and within the b ilateral parotids, increased in size and number compared to prior PET/CT of 0. Squad Sergeant lymph node within the hig hest FDG uptake in the left level 2 region measures 10 mm with SUV max of 18 .7 (axial image 26). CHEST: FDG avid adenopathy in the bilateral axi llary and bilateral mediastinal and hilar regions, similar in size compared to CT chest of 10/17/2020. Squad Sergeant lymph node with the highe st FDG uptake in the left upper axillary region at the lateral margin of the left pectoralis major muscle measures 10 mm with SUV max of 17.6 (axial image 60). Large right pleural effusion with compre ssive atelectasis of the right lower right middle lobes, unchanged compared t o recent CT of 02/16/2021. ABDOMEN/PELVIS: Extensive FDG avid adenopathy in the abd ominal and pelvic retroperitoneum and mesentery and bilateral inguinal regions , increased in size and number compared to prior PET/CT of 09/2019 and similar in size compared to prior CT of 10/17/2020. Squad Sergeant adenopathy in the highest FDG uptake in the left presacral region has an SUV max of 14.5 (axial image 190) . Diffusely increased activity throughout the spleen which is increased in size and intensity compared to prior PET/CT o f 09/2019 and similar in size compared to CT of 08/2020. Vertical dimension of the spleen is 12 cm compared to 9.5 prior PET/CT. NOTE: The vast majority of the above-men tioned adenopathy has an SUV max in the range of approximately 4-10 on both the current and prior PET/CT of 09/2019. SKELETON/EXTREMITIES: Normal activity in all regions of the ax ial and visualized appendicular skeleton. An 11 mm highly FDG avid nodule in the r ight antecubital region (axial image 133) with SUV max of 13.6. Procedure Note Allan Coates MD - 03/17/2021Formatti ng of this note might be different from the original. EXAMINATION: NM PET CT STANDARD SKULL BA SE TO MID-THIGH CLINICAL HISTORY: Non-Hodgkin lymphoma, staging Follicular lymphoma staging. Patient has been watching weight, but now with new malignant pleural effusion. Compared to outside CT TECHNIQUE: Following IV injection of 18- fufrma-9-pivgeayunvpa (FDG) a standard uptake of approximately 60 minutes, a no ncontrast CT scan followed by a PET scan were acquired from the base of the skull to mid thighs. The noncontrast CT was used for anatomic localization and photo n attenuation correction of the PET scan. Blood glucose level: 94 (mg/dL) FDG dose: 12.8 mCi Reference Liver mean SUV is 2.9 on the c urrent study compared to 2.8 on prior PET/CT of 09/2019. COMPARISON: CT chest 02/12/2021, CT chest abdomen and pelvis 10/17/2020, and PET/CT 10/04/2019 FINDINGS: HEAD/NECK: FDG avid adenopathy in the bilateral upp er and lower cervical and supraclavicular regions and within the b ilateral parotids, increased in size and number compared to prior PET/CT of 0. Squad Sergeant lymph node within the hig hest FDG uptake in the left level 2 region measures 10 mm with SUV max of 18 .7 (axial image 26). CHEST: FDG avid adenopathy in the bilateral axi llary and bilateral mediastinal and hilar regions, similar in size compared to CT chest of 10/17/2020. Squad Sergeant lymph node with the highe st FDG uptake in the left upper axillary region at the lateral margin of the left pectoralis major muscle measures 10 mm with SUV max of 17.6 (axial image 60). Large right pleural effusion with compre ssive atelectasis of the right lower right middle lobes, unchanged compared t o recent CT of 02/16/2021. ABDOMEN/PELVIS: Extensive FDG avid adenopathy in the abd ominal and pelvic retroperitoneum and mesentery and bilateral inguinal regions , increased in size and number compared to prior PET/CT of 09/2019 and similar in size compared to prior CT of 10/17/2020. Squad Sergeant adenopathy in the highest FDG uptake in the left presacral region has an SUV max of 14.5 (axial image 190) . Diffusely increased activity throughout the spleen which is increased in size and intensity compared to prior PET/CT o f 09/2019 and similar in size compared to CT of 08/2020. Vertical dimension of the spleen is 12 cm compared to 9.5 prior PET/CT. NOTE: The vast majority of the above-men tioned adenopathy has an SUV max in the range of approximately 4-10 on both the current and prior PET/CT of 09/2019. SKELETON/EXTREMITIES: Normal activity in all regions of the ax ial and visualized appendicular skeleton. An 11 mm highly FDG avid nodule in the r ight antecubital region (axial image 133) with SUV max of 13.6. IMPRESSION 1. Extensive neva involvement by lympho ma and neck, chest, abdomen, and pelvis as described above. 2. Diffusely increased activity througho ut the spleen which is increased in size compared to prior PET/CT, consisten t with splenic involvement by lymphoma. 3. Notable small FDG avid lymph nodes wi th a very high degree of FDG uptake (SUV max greater than 12) with represent ative nodes detailed above, are highly suspicious for lymphoma transformation a nd would be amenable to CT-guided biopsy if clinically indicated. 4. Large right pleural effusion, unchang ed compared to prior CT of 02/16/2021. Thank you for letting us participate in the care of this patient. If you are a health care provider and have any questi ons regarding this report, please contact the number below. For patients w ho have questions please contact the health home care rn that requested your imaging first. Electronically signed by: Allan Coates MD, [facility] ([phone]), at 03/17/2021 10:04 AM Bina Monique MD IMG PET ORDERABLES documented in this encounter Visit Diagnoses Diagnosis 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 documented in this encounter Administered Medications Inactive Administered Medications - up to 3 most recent administrations Medication Order MAR Action Action Date Dose Rate Site fludeoxyglucose (F-18) FDG Given 03/17/2021 7:34 AM EDT 12.8 mCi injection 0-20 mCi 0-20 mCi, Intravenous, ONCE PRN, 1 dose, Starting on 03/17/21 at 0741, Until Tu03/17/21 at 0734, Per Protocol, Radiology Contrast, Routine documented in this encounter
--- OUTSIDE RECORDS SUMMARY | 2022-05-21 01:03 | XMS_ITS | Encounter Summary ---
:1950 Author Organization [facility] Address [address] [place] [address] Care Team Providers Name Role Phone None Primary Care Provider Unavailable Reason for Visit Auth/Cert Specialty Diagnoses / Procedures Referred By Contact Refer red To Contact Diagnoses Lymphoma staging Procedures PRO DIAGNOSTIC BONE MARROW BIOPSIES & ASPIRATIONS ([facility] MSURG) BONE MARROW BIOPSY AND ASPIRATION; DIAGNOSTIC Referral ID Status Reason Start Date Expiration Date Visits Requ ested Visits Authorized [id number] 1 1 Encounter Details Date Type Department Care Team Description 03/19/2021 Hospital Encounter Outpatient Surgery Juwan Monique [facility] Center Anastasia Smith MD [facility] HEMATOLOGY/[place] [address] [place] [address] [phone] (Wo rk) Social History Tobacco Use Types [...] 5pm or on a weekend: Call the [facility] transfer car operator drier at and ask for the physician education sales consultant covering for your doctor. Instructions following sedation [...] drainage occurs, please contact your [facility] [address] ??? [place] [address] ??? [phone] ??? [email or web address] ??? [facility] ??? [facility] ??? [facility] documented in this encounter Medications at Time [...] 03/20/2021 (FLONASE) 50 mcg/actuation Nare route daily. [place], Suspension cetirizine (ZyrTEC) 10 mg Take 10 [...] Acosta APRN Nurse Practitioner Section of Hematology/Oncology [facility] Office phone: documented in [...] Office Visit Hematology and Oncology Jackie Dillon, RECYCLING MANAGER [facility] HEMAT[facility]/ONCOL [place] DEPT. [place], [place] [address] ( rk) 06/16/2022 Infusion Hematology and Oncology documented [...] BONE MARROW PANEL Routine 03/19/2021 8:35 AM ([facility]/APD) EDT ([facility] MSURG) BONE 03/19/2021 8:17 AM [...] 6:56 AM Resu lts for this MARROW -SCHREIBER EDT procedure are i n the results section. ([facility] MSURG) BONE Routine 03/19/2021 6:53 AM MARROW BIOPSY AND EDT ASPIRATION; DIAGNOSTIC documented in this encounter Results Bone Marrow Final Report (03/19/2021 8:35 AM EDT) Component Value Ref Test Analysis Performed At [facility] Range Method Time Signature Bone Marrow [id number] ? Location: [facility] Final Report FR[place]CH LICK The signing pathologist has (i) examined the relevant preparation(s) for the [facility]ORIAL specimen(s) and (ii) rendered or confirmed the diagnosis(es) . HOSPITAL LABORATORY . ? Final Integ rated Report INTEGRATED DIAGNOSIS A Karyotyping, Bone Marrow - [place] ([phone]) has been resulted on a bone marrow belonging to Iain Draper MD. Patient: ??[id number] ?? BRIAN IBANEZ Bone Marrow Integrated Results For 41 SPECIMEN RESULTS Bone marrow aspirate, biopsy , peripheral smear : 1. ??Follicular lymphoma, by history. 2. ??Normocellular marrow (4 0%) with maturing trilineage hematopoiesis and involved by paratrabecular lymphoid agg regates c/w ??Follicular lymphoma, involving 40% of the cellularity. SYNOPSIS OF ANCILLARY STUDY RESULT(S) Cytogenetic analysis: Karyotyping, -[place]: ??46,XX[20] This is a summary report; co llating results from all diagnostic studies performed at [facility] on this particular bio psy specimen. ??Please refer to the primary report(s) of each individual study for complete text and additional stud y details. Electronically signed by: ?Iain Draper MD Verified: ??03/27/2021 14:11 ??Hematopathologist Performed at: ??-[facility] Dept. of Pathology, [place], [place] ? Bone Marrow Final DIAGNOSIS Bone marrow aspirate, biopsy , peripheral smear : 1. ??Follicular lymphoma, by history. 2. ??Normocellular marrow (4 0%) with ?? maturing trilineage hematopoiesis and involved by paratrabecular lymphoid aggregates c/w ??F ?? ollicular lymphoma, involving 40% of the cellularity. ??Cytogenetics pending. See discussion. Electronically signed by: ?Iain Draper MD Verified: ??03/20/2021 17:24 ??Hematopathologist Performed at: ??-[facility] Dept. of Pathology, [place], [place] PERIPHERAL SMEAR WBC 3.35K/ uL, RBC [...] are present. DIFFERENTIAL Band/Seg 46%; Lymph 2%; [place] 0%; Eos 4%; Baso 0%; Metamyelocyte 2%; [...] were developed by the clinical laboratory at [facility]. Antibody specifici ties have been verified on [...] MD PATHOLOGY/CYTOLOGY ORDERABLE S Performing Organization Address City/[facility]/ZIP Code Phon e Number [address] Iron Stain, Bone Marrow (03/19/2021 8:35 AM EDT) [facility] gist Method Time Signature Iron Stain BM See Comment [facility] LABORATORY Comment: See Bone Marrow Report [id number] under Hematopathology Reports. Specimen Anatomical Collection Method Collection Time Receive d Time (Source) Location / / Volume Laterality Bone Marrow 03/19/2021 8:35 AM 8:59 EDT AM EDT Resulting Agency Comment Spec In Lab Bina Monique MD HEMATOLOGY ORDERABLES Performing Organization Address City/State/ZIP Code Phon e Number [address] Differential, Automated (03/19/2021 7:27 AM EDT) P athologist Signature Neutrophils % 61.4 % [facility] LABORATORY Neutr Abs (ANC) 2.06 1.70 - [facility] 6.10 [facility] x10(3)/[facility] LABORATORY Lymphocytes % 27.5 % [facility] LABORATORY Lymphocytes Abs 0.9 0.9 - 3.2 [facility] x10(3)/[facility] LABORATORY Monocytes % 8.1 % [facility] LABORATORY Monocyte Abs 0.3 0.3 - 0.9 [facility] x10(3)/[facility] LABORATORY Eosinophils % 2.4 % [facility] LABORATORY Eosinophils Abs 0.1 0.0 - 0.4 [facility] x10(3)/[facility] LABORATORY Basophils % 0.6 % [facility] LABORATORY Basophils Abs 0.0 0.0 - 0.1 [facility] x10(3)/[facility] LABORATORY Immature Gran % 0.00 % [facility] LABORATORY Comment: Immature granulocytes(IG's)percentage an d absolute count will include metamyelocytes, myelocytes, and promyelo cytes. Blood smears from CBCs yielding IG's will be scanned manually for concor dance. If this scan disagrees with the automated IG or if promyelocytes are not ed, a manual differential will be performed. [place] Gran Abs 0.00 0.00 - 0.04 x10(3)/[facility] MAR Y [facility] LABORATORY Specimen Anatomical Collection Method Collection Time Receive d Time (Source) Location / / Volume Laterality Blood 03/19/2021 7:27 AM 9:15 EDT AM EDT Resulting Agency Comment Spec In Lab Bina Monique MD HEMATOLOGY ORDERABLES Performing Organization Address City/State/ZIP Code Phon e Number [place] [id number] HOSPITAL LABORATORY Drive (ABNORMAL) Hemogram (03/19/2021 7:27 AM EDT) Analysis Performed At Patho logist Time Signature WBC 3.4 (L) 4.0 - 9.5 [facility] x10(3)/[facility] LABORATORY RBC 3.70 (L) 4.00 - [place] 5.21 [facility] x10(6)/[facility] LABORATORY Hemoglobin 11.2 (L) 11.7 - [facility] 15.5 gm/dL [facility] Hematocrit 33.6 (L) 35.7 - [facility] 45.8 % [facility] LABORATORY MCV 90.8 82.6 - [facility] 94.4 [facility] LABORATORY MCH 30.3 27.1 - [facility] 32.0 pg [facility] LABORATORY MCHC 33.3 31.7 - [facility] 35.0 gm/dL [facility] LABORATORY Platelets 156 145 - 357 [facility] x10(3)/[facility] RDWSD 44.2 37.0 - [facility] 46.0 [facility] RDWCV 13.4 11.5 - [facility] 14.1 % [facility] LABORATORY MPV 10.6 7.6 - 12.9 [facility] LABORATORY nRBC % Auto 0.0 % [facility] LABORATORY nRBC Abs Auto 0.000 0.000 - [facility] 0.000 [facility] x10(3)/[facility] LABORATORY Specimen Anatomical Collection Method Collection Time Receive d Time (Source) Location / / Volume Laterality Blood 03/19/2021 7:27 AM 9:15 EDT AM EDT Resulting Agency Comment Spec In Lab Bina Monique MD HEMATOLOGY ORDERABLES Performing Organization Address City/State/[place] [address] Karyotyping, Bone Marrow (03/19/2021 6:56 AM EDT) [facility] gist Method Time Signature Karysully, ANASTASIA Bone Marrow Test ? Result ?Flag [...] ?A portion of testing was performed at [facility] - ?Site [address] Cytogenetics (CLIA # [id number]), [address] [place] [place] [address]. ??Released By ?Leta Huerta, Ph.D. ?Test Performed by: ?[facility] ?[address] [id number] ?Bariatric Nurse: Mello Del Real M.D. Ph.D.; CLIA# [id number] Specimen Anatomical Collection Method Collection Time Receive d Time (Source) Location / / Volume Laterality Bone Marrow HLX Bone Marrow / 03/19/2021 6:56 AM 03/2021 1:46 Unknown EDT PM EDT Resulting Agency Comment Spec In Lab Bina Monique MD CHEMISTRY ORDERABLES Performing Organization Address City/State/[place] [address] documented in this encounter Visit Diagnoses Not on filedocumented in this encounter Active and Recently Administered Medications Times are shown in EDT. PRN Medication Order 03/17/2021 03/18/2021 03/19/2021 fentaNYL (pf) (50 mcg/mL) multi-dose injection 25 mcg (CANCELED) 820 (Given - Provider: Bernie Randolph, RN) 25 mcg, Intravenous, EVERY 5 MIN [...] (1 mg/mL) multi-dose injection 0.25-1 mg (CANCELED) 818 (Given - Provider: Bernie Randolph, MARI) 0.25-1 mg, Intravenous, EVERY 5 MIN PRN, Starting on Yocasta 03/19/21 at 0800, Until Yocasta 03/19/21 at 0836, Anxiety, For use in the Operating Room (OR) or Outpatient [facility] Center (OSC) only for procedural sed ation with direct provider supervision a nd verbal order. Hold for delirium/agitation. (Maximum dose 4 mg.), Intra-Operative (Intra-Procedure), Routine documented in this encounter Care Teams Media Supervisor Relationship Specialty Start Date End Date None PCP - General 03/19/21 03/19/21 None documented as of this encounter
--- OUTSIDE RECORDS SUMMARY | 2022-05-21 01:03 | XMS_ITS | Encounter Summary ---
:1950 Author Organization [facility] [place] [address] Care Team Providers Name Role Phone Jared Anna MD Primary Care Provider Encounter Details Date Type Department Care Team Description 10/17/2020 Hospital Encounter Hematology and Grade 2 follicular Oncology at [facility] [place] [address] Social History Tobacco Use Types Packs/Day [...] 20 03/20/2021 (FLONASE) 50 mcg/actuation Nare route [place], Suspension daily. cetirizine (ZyrTEC) 10 mg Take [...] Office Visit Hematology and Oncology Jackie Dillon, LICENSE DISTRIBUTOR [facility] HEMATOLOGY/[facility] DE[facility]. [place], [place] [address] (Wo rk) 06/16/2022 Infusion Hematology and Oncology documented as of this encounter Procedures Procedure Name Priority Date/Time Associated Comments Diagnosis HEMOGRAM STAT 10/17/2020 10:41 Grade 2 follicular Resul ts for this AM EDT lymphoma of lymph procedure are in nodes of multiple the result s regions section. DIFFERENTIAL, STAT 10/17/2020 10:41 Grade 2 follicular Resu lts for this AUTOMATED AM EDT lymphoma of lymph procedure are in nodes of multiple the result s regions section. HC CBC,PLT & AUTO DIFF STAT 10/17/2020 10:41 Grade 2 follic ular AM EDT lymphoma of lymph nodes of multiple regions HC VENIPUNCTURE STAT 10/17/2020 10:41 Grade 2 follicular Re sults for this AM EDT lymphoma of lymph procedure are in nodes of multiple the result s regions section. COMPREHENSIVE STAT 10/17/2020 10:41 Grade 2 follicular Resu lts for this METABOLIC PANEL AM EDT lymphoma of lymph procedu re are in (NON-FASTING) nodes of multiple the resul ts regions section. documented in this encounter Results Differential, Automated (10/17/2020 10:41 AM EDT) P athologist Signature Neutrophils % 61.2 % [facility] Neutr Abs (ANC) 2.71 1.70 - [facility] 6.10 [facility] x10(3)/[facility] LABORATORY Lymphocytes % 26.2 % [facility] Lymphocytes Abs 1.2 0.9 - 3.2 [facility] x10(3)/[facility] LABORATORY Monocytes % 7.9 % [facility] Monocyte Abs 0.4 0.3 - 0.9 [facility] x10(3)/[facility] LABORATORY Eosinophils % 3.6 % [facility] Eosinophils Abs 0.2 0.0 - 0.4 [facility] x10(3)/[facility] LABORATORY Basophils % 0.9 % [facility] Basophils Abs 0.0 0.0 - 0.1 [facility] x10(3)/[facility] LABORATORY Immature Gran % 0.20 % [facility] Comment: Immature granulocytes(IG's)percentage an d absolute count will include metamyelocytes, myelocytes, and promyelo cytes. Blood smears from CBCs yielding IG's will be scanned manually for concor dance. If this scan disagrees with the automated IG or if promyelocytes are not ed, a manual differential will be performed. [place] Gran Abs 0.01 0.00 - 0.04 x10(3)/[facility] MAR Y [facility] Specimen Anatomical Collection Method Collection Time Receive d Time (Source) Location / / Volume Laterality Blood specimen 10/17/2020 10:41 1 (specimen) AM EDT 10:52 AM EDT Resulting Agency Comment Spec In Lab Venus Mendieta APRN HEMATOLOGY ORDERABLES Performing Organization Address City/State/[place] [address] (ABNORMAL) Hemogram (10/17/2020 10:41 AM EDT) Analysis Performed At Patho logist Time Signature WBC 4.4 4.0 - 9.5 [facility] x10(3)/[facility] LABORATORY RBC 3.62 (L) 4.00 - [facility] 5.21 [facility] x10(6)/[facility] LABORATORY Hemoglobin 11.1 (L) 11.7 - [facility] 15.5 gm/dL [facility] Hematocrit 32.7 (L) 35.7 - [facility] 45.8 % [facility] MCV 90.3 82.6 - [facility] 94.4 [facility] LAB[facility]ATORY MCH 30.7 27.1 - [facility] 32.0 pg [facility] MCHC 33.9 31.7 - [facility] 35.0 gm/dL [facility] Platelets 133 (L) 145 - 357 [facility] x10(3)/[facility] LABORATORY RDWSD 41.9 37.0 - [facility] 46.0 [facility] LABORATORY RDWCV 12.7 11.5 - [facility] 14.1 % [facility] MPV 10.1 7.6 - 12.9 [facility] LABORATORY nRBC % Auto 0.0 % [facility] nRBC Abs Auto 0.000 0.000 - [facility] 0.000 [facility] x10(3)/[facility] LABORATORY Specimen Anatomical Collection Method Collection Time Receive d Time (Source) Location / / Volume Laterality Blood specimen 10/17/2020 10:41 1 (specimen) AM EDT 10:52 AM EDT Resulting Agency Comment Spec In Lab Venus Mendieta LICENSE DISTRIBUTOR HEMATOLOGY ORDERABLES Performing Organization Address City/State/[place] [address] (ABNORMAL) Comprehensive metabolic panel (non-fasting) (10/17/2020 10:41 AM EDT) P athologist Signature Glucose Lvl 98 65 - 199 [facility] mg/dL [facility] Comment: Diabetes: >=200 mg/dL plus symp toms BUN 21 (H) 8 - 18 mg/dL [facility] Creatinine 0.80 0.70 - 1.20 mg/dL [facility] Sodium 139 135 - 145 mmol/L [facility] Potassium 4.2 3.5 - 5.0 mmol/L [facility] Comment: Please note: ??Patients with WBC >100,00 0 may have falsely elevated Potassium levels. ??For accurate Potassium quantif ication in these patients send serum separator tube (gold top) for subsequent determinations. ??Contact the Clinical Chemistry Laboratory if there are any qu estions. Chloride 103 98 - 107 mmol/L [facility] CO2 27 22 - 31 mmol/L [facility] Anion Gap 9 5 - 15 mmol/L [facility] Calcium 9.3 8.5 - 10.5 mg/dL [facility] Total Protein 6.3 6.1 - 8.0 gm/dL [facility] Albumin 4.3 3.2 - 5.2 gm/dL [facility] AST 20 0 - 30 unit/L [facility] ALT 17 0 - 30 unit/L [facility] Alk Phos 78 35 - 105 unit/L [facility] Total Bilirubin 0.5 0.2 - 1.3 mg/dL [facility] Estimated GFR 74 >=60 mL/min/1.73 m?? [facility] Comment: This patient? s estimated glomerular filtration rate (eGFR) is between 74 mL/min/1.73 m2 (patients with less muscl e mass) and 85 mL/min/1.73 m2 (patients with more muscle mass) [...] (Source) Location / / Volume Laterality Blood specimen 10/17/2020 10:41 1 (specimen) AM EDT 10:52 AM EDT Resulting Agency Comment Spec In Lab Venus Mendieta APRN CHEMISTRY ORDERABLES Performing Organization Address City/State/[place] [address] [facility] LAB[facility]ATORY Drive Lactate Dehydrogenase (10/17/2020 10:41 AM EDT) P athologist Signature LDH 179 110 - 220 [facility] unit/L [facility] Specimen Anatomical Collection Method Collection Time Receive d Time (Source) Location / / Volume Laterality Blood specimen 10/17/2020 10:41 1 (specimen) AM EDT 10:52 AM EDT Resulting Agency Comment Spec In Lab Venus Mendieta LICENSE DISTRIBUTOR CHEMISTRY ORDERABLES Performing Organization Address City/State/[place] [address] documented in this encounter Visit Diagnoses Diagnosis 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 documented in this encounter Care Teams Telemarketing Sales Representative Relationship Specialty Start Date End Date Jared Anna MD PCP - General 06/02/10 02/08/21 documented as of this encounter
--- OUTSIDE RECORDS SUMMARY | 2022-05-21 01:03 | XMS_ITS | Encounter Summary ---
:1950 Author Organization [facility] [place] [address] Care Team Providers Name Role Phone Unavailable Primary Care Provider Unavailable Encounter Details Date Type Department Care Team Description 02/20/2021 Telephone Hematology and Oncology at Rosemary Newman MD [facility]oso [place] [address] [place] [address] [phone] (Wo rk) Social History Tobacco Use Types Packs/Day Years Used Date Former Smoker Quit: 1989 Smokeless Tobacco: Never Used Sex Assigned at Date Recorded Not on file documented as of this encounter Miscellaneous Notes Telephone Encounter - Rosemary Lemons MD - 02/20/2021 2:10 PM EDT Hem/Onc Telephone Note Call From: Dr. Carreon at [facility] Patient ID: [id number] y.o. 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 CAT scan October 2020 ago showed progressive adenopathy, but nothing yet necessary for treatment. She presented to [facility] with worsening SOB. Recent ECHO which was WNL. CT Chest reveals worsening pleural effusion. Patient has tried to call the office but hasn't received a call back. Dr. Carreon is calling to inform us of this ED visit and to see if we can get her in sooner than next month. Patient states she tried to call the office but hasn't received a call back for over a week. Rosemary Lemons MD Hematology/Oncology Fellow Pager [phone] 02/20/21 documented in this encounter Plan of Treatment Upcoming Encounters Date Type Specialty Care Team Description 06/16/2022 Office Visit Hematology and Oncology Jackie Dillon, [employer] [facility] ER HEMATOLOGY/ONCOL [facility] DEPT. [place], [place] [address] (Wo rk) 06/16/2022 Infusion Hematology and Oncology documented as of this encounter Visit Diagnoses Not on filedocumented in this encounter
--- OUTSIDE RECORDS SUMMARY | 2022-05-21 01:03 | XMS_ITS | Encounter Summary ---
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 [place] [address] [place] [address] Referral ID Status Reason Start Date Expiration Date Visits V isits Requested Authorized [id number] Closed Specialty 03/20/2021 09/17/2022 1 1 Service Requested Reason for Visit Auth/Cert Specialty Diagnoses / Procedures Referred By Contact Refer red To Contact Diagnoses Pleural effusion PLEURAL EFFUSION Procedures EMERGENCY OBSVO Referral ID Status Reason Start Date Expiration Date Visits Requ ested Visits Authorized [id number] 1 1 Encounter Details Date Type Department Care Team Description 03/20/2021 Office Visit Thoracic Surgery at Sukhjinder Burton MD Grade 2 follicular [facility] lymphoma of lymph [facility] [place], [place] [id number] [place] [address] [phone] (Work) [phone] Social History Tobacco Use Types Packs/Day Years [...] Sign Reading Time Taken Comments Blood Pressure 136/84 03/20/2021 11:15 AM EDT Pulse 68 03/20/2021 11:15 AM EDT Temperature - - Respiratory Rate 18 03/20/2021 11:15 AM EDT Oxygen Saturation 95% 03/20/2021 11:15 AM EDT Inhaled Oxygen Concentration - - Weight 81.6 kg (180 lb) 03/20/2021 11:15 AM EDT Height 160 cm (5' 2.99) 03/20/2021 11:15 AM EDT Body Mass Index 31.89 03/20/2021 11:15 AM EDT documented in this encounter Patient Instructions Patient InstructionsMarry Acosta RN - 03/20/2021 11:15 AM EDT Thank you for visiting Dr. Burton in clinic 03/20/21 Dr. Burton would like to schedule you for Possible Pleural Biopsy, Possible PleurX Catheter. Pleurodesis is a procedure that is designed to get the two layers of the lung lining (the pleura - (a thin layer of tissue that covers the lungs and lines the interior wall of the chest cavity) to stick together. This works to obliterate the space between the layers (the pleural cavity) so that fluid (water, blood, or pus) can no longer build up between the layers. Talc pleurodesis is a specific formof chemical pleurodesis. A pleural biopsy is a procedure to remove a sample of tissue from the pleura and then sent to the laboratory for testing. The pleura, is a 2 layer lining that surrounds the lungs. The PleurX catheter system is designed to allow drainage of fluid that has accumulated in the chest.A tunneled catheter is placed under the skin of the chest and secured in place with a suture. A PleurX catheter is beneficial for patients who suffer from frequent pleural effusions. This system allowspatients to drain fluid from the comfort of their own home and reduces the need for frequent trips to the hospital or doctors office. You will be taught how to use the drainage kits that kit the PleurX catheter. You may have Visiting Nurses come to your house as well to assist you with emptying your PleurX catheter. If you have any questions or concerns regarding your PleurX catheter, please call Thoracic Surgery at [phone]. Dr. Burton's team will see you twice per day while you are in the hospital. Two weeks after you leave the hospital, you will be scheduled to see Dr. Burton in her clinic and will also have a chest x-ray before you see her on this day. Please call the Thoracic Surgery nurse if you have any questions before or after your surgery at . documented in this encounter Progress Notes Huseyin Baez PA - 03/20/2021 11:15 AM EDT Images from the original note were not included. Thoracic Surgery Outpatient Consultation Note MD Huseyin Reich PA-C [place] [phone] Date of Consultation: 03/20/2021 This consultation has been requested by PCP: Jared Anna MD Referring Physician: Bina Monique MD Purpose for Consultation: Recurrent Right-sided malignant pleural effusion HPI: Brian Bliss is a 70 y.o. female with a PMHx significant for follicular lymphoma, HTN, HLD, hypothyroidism and depression. She was diagnosed with lymphoma in August 2019 and has currently received no treatment thus far. Around January 2021 she began to experience worsening SOB and SHERMAN. In early February 2021 she presented to [facility] ED and was noted to have Right pleural effusion. A Right thoracentesiswas performed on 02/24/21 and cytology was positive for lymphoma. PET was performed 03/17/2021 which demonstrated recurrent Right-sided malignant pleural effusion. She has also noticed her breathing symptoms have worsened since the thoracentesis, currently notes SOB and SHERMAN even worse than prior to that procedure. She was then referred to [facility] for further discussion of management of theeffusion. Patient is a former very light smoker, around 1 pack per week for about 10 years, estimate about 1 pack year smoking history, none for many years, reports ETOH use of about 3 glasses of [...] note she underwent a bone marrow biopsy yesterday, 03/19/2021, recently had mediport placed, and is scheduled to potentially start chemo in the next few weeks. Past Medical History: Patient Active Problem List Diagnosis Date Noted ??? 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 Hypertension 09/18/2019 ??? Hypothyroidism 09/18/2019 ??? Hypercholesterolemia 09/18/2019 No past medical history on file. Past Surgical History: Past Surgical History: Procedure Laterality Date ??? IR MEDIPORT PLACEMENT 03/13/2021 IR Mediport Placement 03/13/2021 Krishna Rivas PA [facility] RAD ??? IR THORACENTESIS RIGHT 02/24/2021 IR Thoracentesis Right 02/24/2021 Beni Wright MD [facility] INTERVENT[facility] RAD ? ? PRO DIAGNOSTIC BONE MARROW BIOPSIES & ASPIRATIONS Right 03/19/2021 ([facility]) BONE MARROW BIOPSY AND ASPIRATION; DIAGNOSTIC performed by Bina Monique MD [facility] Medications: Outpatient Medications Marked as Taking for the 03/20/21 encounter (Office Visit) with Sukhjinder Burton MD Medication Sig Dispense Refill ??? tolterodine LA (Detrol LA) 2 mg Capsule, Sust. Release 24 hr Take 2 mg by mouth daily. ??? lisinopriL-hydrochlorothiazide (zestoretic) 20-25 mg Tablet Take 1 tablet by mouth daily. ??? fluticasone propionate (FLONASE) 50 mcg/actuation [place], Suspension 1 spray by Each Nare route [...] Reactions ??? Sulfa (Sulfonamide Antibiotics) Family History: No family history on file. Social History: Social History Socioeconomic History ??? Marital status: Spouse name: Not on file ??? Number of children: Not on file ??? Years of education: Not on file ??? Highest education level: Not on file Occupational History ??? Not on file Tobacco Use ??? Smoking status: Former Smoker Packs/day: 0.25 Years: 10.00 Pack years: 2.50 Types: Cigarettes Quit date: 1989 Years since quittin.7 ??? Smokeless tobacco: Never Used Vaping Use ??? Vaping Use: Never used Substance and Sexual Activity ??? Alcohol use: Yes Comment: Glass of wine 2-3 nights a week ??? Drug use: Never ??? Sexual activity: Not on file Other Topics Concern ??? Not on file Social History Narrative ??? Not on file Social Determinants of Health Financial Resource Strain: ??? Difficulty of Paying Living Expenses: Not on file Food Insecurity: ??? Worried About Running Out of Food in the Last Year: Not on file ??? Ran Out of Food in the Last Year: Not on file Transportation Needs: ??? Lack of Transportation (Medical): Not on file ??? Lack of Transportation (Non-Medical): Not on file Physical Activity: ??? Days of Exercise per Week: Not on file ??? Minutes of Exercise per Session: Not on file Review of Systems: Patient admits SOB, SHERMAN, weight loss of about 25 lbs over the past several months, occasional nausea, constipation and abdominal discomfort. Patient denies AR/stroke/TIA/DVT/PE/cancer, problems with kidneys/liver/bleeding/anesthesia, fevers, chills, sweats, fatigue, headaches, dizziness, lightheadedness, changes in vision or hearing, chest pain, palpitations, orthopnea, cough, productive cough, hemoptysis, pleurisy, sore throat, odynophagia, vomiting, hematemesis, diarrhea, BRBPR, melena, paresthesias, cyanosis. Physical Exam: BP 136/84 Pulse 68 Resp 18 Ht 160 cm (5' 2.99) Wt 81.6 kg (180 lb) SpO2 95% BMI 31.89 kg/m?? General Appearance: Alert, cooperative, no distress, appears stated age HEENT: PERRL, MMM, non-icteric Neck: Supple, symmetrical, trachea midline, adenopathy of neck appreciated Lungs: Diminished at Right mid and basilar lung boo, clear to auscultation on Left, no wheezes, crackles or ronchi appreciated, non-labored breathing on RA, speaking in complete sentences, no accessory muscle use Heart: Regular rate and rhythm, S1 and S2 normal, no murmur, rub, or gallop appreciated Abdomen: Soft, non-tender, BS+ Extremities: Extremities normal, no cyanosis or clubbing, trace bilat LE edema Neurologic: A+Ox3, cranial nerves II-XII grossly intact Musculoskeletal: 5/5 throughout with normal gait Diagnostics: I have independently visualized all relevant imaging studies, including: PET (03/17/21): 1. Extensive neva involvement by lymphoma and neck, chest, abdomen, and pelvis as described above. 2. Diffusely increased activity throughout the spleen which is increased in size compared to prior PET/CT, consistent with splenic involvement by lymphoma. 3. Notable small FDG avid lymph nodes with a very high degree of FDG uptake (SUV max greater than 12) with senior sales representative nodes detailed above, are highly suspicious for lymphoma transformation and would be amenable to CT-guided biopsy if clinically indicated. 4. Large right pleural effusion, unchanged compared to prior CT of 02/16/2021. CXR (02/24/21): Unchanged large right pleural effusion. CT Chest (02/14/21): Thoracentesis (02/24/21): Findings: 1. Large right pleural effusion by US evaluation 2. US guided thoracentesis with removal of 1600 cc as above. Pathology (02/24/21): Pleural fluid, thoracentesis: Low grade Follicular lymphoma. Assessment: Brian Bliss is a 70 y.o. female with PMHx significant for follicular lymphoma, HTN, HLD, hypothyroidism and depression, now with recurrent Right-sided malignant pleural effusion. Plan of Management: 1. Right PleurX catheter placement by IR, LSS and flow cytometry studies ordered per Dr. Griffin's request 2. Admission to Hospital Medicine Service after procedure, Thoracic Surgery Service will follow PleurX output during admission, should allow only a max of about 800 mL to drain every 3 hours (eg once 800 mL has drained keep clamped for the remainder of the 3 hours, until less than 800 mL drains over the 3 hour period, will also ensure outpatient follow up is organized after discharge 3. Please page Thoracic Surgery Service at [phone] with any questions or concerns at any time Patient was seen and evaluated in conjunction with attending thoracic surgeon Dr. Burton. JANET Pineda 03/20/2021 Thoracic Surgery [facility] Sukhjinder Burton MD - 03/20/2021 11:15 AM EDT Images from the original note were not included. Thoracic Surgery Outpatient Consultation Note MD Huseyin Reich PA-C [place] [phone] Date of Consultation: 03/20/2021 This consultation has been requested by PCP: Jared Anna MD Referring Physician: Bina Monique MD Purpose for Consultation: Recurrent Right-sided malignant pleural effusion HPI: Brian Bliss is a 70 y.o. female with a PMHx significant for follicular lymphoma, HTN, HLD, hypothyroidism and depression. She was diagnosed with lymphoma in August 2019 and has currently received no treatment thus far. Around January 2021 she began to experience worsening SOB and SHERMAN. In early February 2021 she presented to [facility] ED and was noted to have Right pleural effusion. A Right thoracentesiswas performed on 02/24/21 and cytology was positive for lymphoma. PET was performed 03/17/2021 which demonstrated recurrent Right-sided malignant pleural effusion. She has also noticed her breathing symptoms have worsened since the thoracentesis, currently notes SOB and SHERMAN even worse than prior to that procedure. She was then referred to [facility] Thoracic Surgery for further discussion of management of theeffusion. Patient is a former very light smoker, around 1 pack per week for about 10 years, estimate about 1 pack year smoking history, none for many years, reports ETOH use of about 3 glasses of [...] note she underwent a bone marrow biopsy yesterday, 03/19/2021, recently had mediport placed, and is scheduled to potentially start chemo in the next few weeks. Past Medical History: Patient Active Problem List Diagnosis Date Noted ??? 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 Hypertension 09/18/2019 ??? Hypothyroidism 09/18/2019 ??? Hypercholesterolemia 09/18/2019 No past medical history on file. Past Surgical History: Past Surgical History: Procedure Laterality Date ??? IR MEDIPORT PLACEMENT 03/13/2021 IR Mediport Placement 03/13/2021 Krishna Rivas PA [facility] RAD ??? IR THORACENTESIS RIGHT 02/24/2021 IR Thoracentesis Right 02/24/2021 Beni Wright MD [facility] INTERVENT[facility] RAD ? ? PRO DIAGNOSTIC BONE MARROW BIOPSIES & ASPIRATIONS Right 03/19/2021 ([facility]) BONE MARROW BIOPSY AND ASPIRATION; DIAGNOSTIC performed by Bina Monique MD [facility] Medications: Outpatient Medications Marked as Taking for the 03/20/21 encounter (Office Visit) with Sukhjinder Burton MD Medication Sig Dispense Refill ??? tolterodine LA (Detrol LA) 2 mg Capsule, Sust. Release 24 hr Take 2 mg by mouth daily. ??? lisinopriL-hydrochlorothiazide (zestoretic) 20-25 mg Tablet Take 1 tablet by mouth daily. ??? fluticasone propionate (FLONASE) 50 mcg/actuation [place], Suspension 1 spray by Each Nare route [...] Reactions ??? Sulfa (Sulfonamide Antibiotics) Family History: No family history on file. Social History: Social History Socioeconomic History ??? Marital status: Spouse name: Not on file ??? Number of children: Not on file ??? Years of education: Not on file ??? Highest education level: Not on file Occupational History ??? Not on file Tobacco Use ??? Smoking status: Former Smoker Packs/day: 0.25 Years: 10.00 Pack years: 2.50 Types: Cigarettes Quit date: 1989 Years since quittin.7 ??? Smokeless tobacco: Never Used Vaping Use ??? Vaping Use: Never used Substance and Sexual Activity ??? Alcohol use: Yes Comment: Glass of wine 2-3 nights a week ??? Drug use: Never ??? Sexual activity: Not on file Other Topics Concern ??? Not on file Social History Narrative ??? Not on file Social Determinants of Health Financial Resource Strain: ??? Difficulty of Paying Living Expenses: Not on file Food Insecurity: ??? Worried About Running Out of Food in the Last Year: Not on file ??? Ran Out of Food in the Last Year: Not on file Transportation Needs: ??? Lack of Transportation (Medical): Not on file ??? Lack of Transportation (Non-Medical): Not on file Physical Activity: ??? Days of Exercise per Week: Not on file ??? Minutes of Exercise per Session: Not on file Review of Systems: Patient admits SOB, SHERMAN, weight loss of about 25 lbs over the past several months, occasional nausea, constipation and abdominal discomfort. Patient denies AR/stroke/TIA/DVT/PE/cancer, problems with kidneys/liver/bleeding/anesthesia, fevers, chills, sweats, fatigue, headaches, dizziness, lightheadedness, changes in vision or hearing, chest pain, palpitations, orthopnea, cough, productive cough, hemoptysis, pleurisy, sore throat, odynophagia, vomiting, hematemesis, diarrhea, BRBPR, melena, paresthesias, cyanosis. Physical Exam: BP 136/84 Pulse 68 Resp 18 Ht 160 cm (5' 2.99) Wt 81.6 kg (180 lb) SpO2 95% BMI 31.89 kg/m?? General Appearance: Alert, cooperative, no distress, appears stated age HEENT: PERRL, MMM, non-icteric Neck: Supple, symmetrical, trachea midline, adenopathy of neck appreciated Lungs: Diminished at Right mid and basilar lung boo, clear to auscultation on Left, no wheezes, crackles or ronchi appreciated, non-labored breathing on RA, speaking in complete sentences, no accessory muscle use Heart: Regular rate and rhythm, S1 and S2 normal, no murmur, rub, or gallop appreciated Abdomen: Soft, non-tender, BS+ Extremities: Extremities normal, no cyanosis or clubbing, trace bilat LE edema Neurologic: A+Ox3, cranial nerves II-XII grossly intact Musculoskeletal: 5/5 throughout with normal gait Diagnostics: I have independently visualized all relevant imaging studies, including: PET (03/17/21): 1. Extensive neva involvement by lymphoma and neck, chest, abdomen, and pelvis as described above. 2. Diffusely increased activity throughout the spleen which is increased in size compared to prior PET/CT, consistent with splenic involvement by lymphoma. 3. Notable small FDG avid lymph nodes with a very high degree of FDG uptake (SUV max greater than 12) with senior sales representative nodes detailed above, are highly suspicious for lymphoma transformation and would be amenable to CT-guided biopsy if clinically indicated. 4. Large right pleural effusion, unchanged compared to prior CT of 02/16/2021. CXR (02/24/21): Unchanged large right pleural effusion. CT Chest (02/14/21): Thoracentesis (02/24/21): Findings: 1. Large right pleural effusion by US evaluation 2. US guided thoracentesis with removal of 1600 cc as above. Pathology (02/24/21): Pleural fluid, thoracentesis: Low grade Follicular lymphoma. Assessment: Brian Bliss is a 70 y.o. female with PMHx significant for follicular lymphoma, HTN, HLD, hypothyroidism and depression, now with recurrent Right-sided malignant pleural effusion. Plan of Management: 1. Right PleurX catheter placement by IR, LSS and flow cytometry studies ordered per Dr. Griffin's request 2. Admission to Hospital Medicine Service after procedure, Thoracic Surgery Service will follow PleurX output during admission, should allow only a max of about 800 mL to drain every 3 hours (eg once 800 mL has drained keep clamped for the remainder of the 3 hours, until less than 800 mL drains over the 3 hour period, will also ensure outpatient follow up is organized after discharge 3. Please page Thoracic Surgery Service at [phone] with any questions or concerns at any time Patient was seen and evaluated in conjunction with attending thoracic surgeon Dr. Burton. JANET Pineda 03/20/2021 Thoracic Surgery [facility] Attending Attestation: I have seen the patient in person and reviewed the resident's above history and I agree with the details as written. The assessment and plan were formulated in discussion with me and I agree with them as documented. Pertinent History: 70 y/o female with h/o follicular lymphoma here with chronic effusion. Pertinent Exam: Older female who appears younger than her stated age. Breathing non-labored but subjectively feels short of breath. Major issues addressed: Need for drainage, need for tissue Plan: I spoke with Ms. Bliss's oncologist Dr Bina Griffin. Her team feels they have appropriate tissue for diagnosis, and are hoping to start treatment soon. Hence proceeding with drainage of her pleural space in the quickest fashion would be prudent. We have spoken with IR and they are willing toplace a pleurx today. Plan for admission to Medicine/[facility] Onc and we will continue to closely follow. Overnight plan: Continue drainage (~800cc every three hours) until her chest is clear. Plan for PA/LAT CXR and drain teaching in the am. I have appreciated the opportunity to participate in her care. Thank you very much for this consult. Sukhjinder Burton MD Thoracic Surgery documented in this encounter Plan of Treatment Upcoming Encounters Date Type Specialty Care Team Description 06/16/2022 Office Visit Hematology and Oncology Jackie Dillon, [employer] [facility] ER HEMATOLOGY/[facility] DEPT. [place], [place] [address] (Wo rk) 06/16/2022 Infusion Hematology and Oncology documented as of this encounter Procedures Procedure Name Priority Date/Time Associated Diagnosis Comme nts FLUID REVIEW REPORT Routine 03/20/2021 3:20 PM Re sults for this EDT procedure are i n the results section. LEUKEMIA LYMPHOMA Routine 03/20/2021 3:20 PM Grade 2 follicula r Results for this SCREEN (FORMERLY EDT lymphoma of lymph proced ure are in MALIGNANT CELL nodes of multiple the resu lts SCREEN) regions section. CELL COUNT BODY Routine 03/20/2021 3:20 PM Result s for this FLUID EDT procedure are i n the results [...] and the needle removed. Subcutaneous tissue on t posterior chest wall was anesthetized inferolateral to the access site. A trocar was then used to advance the catheter subcutaneously to [facility] pleural access site. Serial dilation of the [...] was not present. ?? Sukhjinder Burton MD [facility] ORDER[facility]LES Fluid Review Report (03/20/2021 3:20 PM EDT) Component Value Ref Test Analysis Performed At [facility] Method Time Signature Fluid Review [id number] ? Location: [address] [place] [address] Senthil LITTLEJOHN The signing pathologist has (i) examined the relevant preparation(s) for the [facility] specimen(s) and (ii) rendered or confirmed the diagnosis(es) . HOSPITAL LABORATORY . ?Cecilio w Cytometry DIAGNOSIS Flow cytometric diagnosis: ? ? CD19,CD10 and monotypic immunoglobulin light chain restricted B-cell population identified. see discussion Electronically signed by: ?Iain Draper MD Verified: ??03/21/2021 11:54 ??Hematopathologist Performed at: ??-[facility] Dept. of Pathology, [place], [place] DISCUSSION Cell viability was 95% as assessed by 7-AAD exclusion. The specimen contained a pop ulation of CD19, ??CD10 positive B lymphocytes that had a monotypic staining pattern for kappa ??immunoglobulin light chain. NOTE The findings support th [...] the Clinical Flow Cytometry Lab oratory at [facility]. It has not been cleared or approve d by the U.S. Food and Drug Administration. ??The FDA has determined that such cleara nce or approval is not necessary. ??This test is used for clinical purposes. ??It po uld not be regarded as investigational or for research. This laboratory is certifie d under the Clinical Laboratory Improvement Act of 1988 (CLIA) as qualified to perform high complexity clinic al laboratory testing. SPECIMEN PROCESSING [id number] Cells for immunophenotypic a nalysis were derived from right pleural fluid. CD45 vs side scatter gating was utilized to identify a lymphoid analysis region that comprises approximately 95% of all cells. The following markers were a ssessed: CD3, CD5, CD10, CD19, CD45, CD56, kappa light chain, and lambda light chain. CLINICAL INFORMATION Follicular lymphoma . ? Fl uid Review DIAGNOSIS Lymphoma cells present ??c/w history of Follicular lymphoma Electronically signed by: ?Bonny MACEDO, Iain Verified: ??03/21/2021 11:53 ??Hematopathologist Performed at: ??-[facility] Dept. of Pathology, [place], [place] DISCUSSION The effusion contains large population of small to intermediate size lymphocytes c/w low grade lymphoma. Microscopic Description: ?? WBC/uL: 2038 ?% ?? PMN: ?? 0.4 ?? MN: ?99.6 Polymorphonuclear cells (PMN) include ne utrophils, eosinophils, and basophils. Mononuclear cells (MN) incl ude lymphocytes and monocytes. Abnormalities, if any, are described above. ADDITIONAL STUDIES Flow analysis supports the above finding. CLINICAL INFORMATION Specimen: ? Pleural fluid, right Clinical Diagnosis: ? [place] Indication for Study: ?? ? lymphoma Specimen (Source) Anatomical Collection Method Collection Time Re ceived Time Location / / Volume Laterality 03/20/2021 3:20 PM EDT Sukhjinder Burton MD PATHOLOGY/CYTOLOGY ORDERABLE S Performing Organization Address City/State/[place] [address] Cell Count Body Fluid (03/20/2021 3:20 PM EDT) [facility] gist Method Time Signature Spec Type BF Pleural, [facility] LABORATORY Color BF Yellow [facility] Appearance BF Slightly [facility] LABORATORY WBC BF Ct 2,038 /mcl [facility] Comment: Guideline listed below apply to [...] context for interpretation. Polymorph % 0 % [facility] Comment: Polymorphonuclear cell percent and absol squaxin values may contain Neutrophils, Eosinophils, and Basophils. Body fluid s mear will be scanned manually for concordance. Mononuc % 100 % [facility] Comment: Mononuclear cell percent and absolute va lues may contain Lymphocytes and Monocytes. Body fluid smear will be scan bladimir manually for concordance. Polymorph BF ABS 7 /[facility] LABORATORY Comment: Polymorphonuclear cell percent and absol squaxin values may contain Neutrophils, Eosinophils, and Basophils. Body fluid s mear will be scanned manually for concordance. Mononuc ABS 2,031 /[facility] LABORATORY Comment: Mononuclear cell percent and absolute va lues may contain Lymphocytes and Monocytes. Body fluid smear will be scan bladimir manually for concordance. Specimen Anatomical Collection Method Collection Time Receive d Time (Source) Location / / Volume Laterality Pleural, Right Other / Unknown 03/20/2021 3:20 PM 03/11 3:44 EDT PM EDT Resulting Agency Comment Spec In Lab Sukhjinder Burton MD BODY FLUIDS AND STOOLS ORDER TIERRA Performing Organization Address City/State/[place] [address] Immunophenotyping Flow Cytometry (03/20/2021 3:20 PM EDT) Component Value Ref Test Analysis Performed At [facility] gist Range Method Time Signature Immunophenotyping See MAU Flow Comment [facility] Comment: When completed by the Pathologist, the F low Cytometry Report ([id number]) will display under the Pathology Result s section within eDH. Specimen Anatomical Collection Method Collection Time Receive d Time (Source) Location / / Volume Laterality Other 03/20/2021 3:20 PM 3:44 EDT PM EDT Resulting Agency Comment Spec In Lab Sukhjinder Burton MD HEMATOLOGY ORDERABLES Performing Organization Address City/State/[place] [address] Leukemia Lymphoma Screen (03/20/2021 3:20 PM EDT) Patholo gist Method Time Signature LLS BF Type Pleural, [facility] LABORATORY Leukemia See Comment [facility] LABORATORY Comment: See Fluid Review Report [id number] under Hematopathology Reports. 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
--- OUTSIDE RECORDS SUMMARY | 2022-05-21 01:03 | XMS_ITS | Encounter Summary ---
:1950 Author Organization [facility] [place] [place] [address] Care Team Providers Name Role Phone Unavailable Primary Care Provider Unavailable Encounter Details Date Type Department Care Team Description 02/12/2021 Ancillary Procedure Radiology [place] [facility] [place] [address] [place] [phone] Social History Tobacco Use Types Packs/Day Years Used Date Former Smoker Quit: 1989 Smokeless Tobacco: Never Used Sex Assigned at Date Recorded Not on file documented as of this encounter Plan of Treatment Upcoming Encounters Date Type Specialty Care Team Description 06/16/2022 Office Visit Hematology and Oncology Jackie Dillon, FARM TECHNICIAN [facility] HEMATOLOGY/[facility] DE[facility]. [place], [place] [address] (Wo rk) 06/16/2022 Infusion Hematology and Oncology documented as of this encounter Procedures Procedure Name Priority Date/Time Associated Diagnosis Comme nts FILM LIBRARY Routine 02/12/2021 12:00 AM Results for this STORAGE ONLY CT EDT procedure ar e in CHEST the results section. documented in this encounter Results Film Library- Storage Only CT Chest (02/12/2021 12:00 AM EDT) Specimen (Source) Anatomical Location Collection Method / Collectio n Time Received Time / Laterality Volume Narrative [facility] NAMED [facility] - 02/18/2021 10:38 AM EDT This exam is auto-finalizing. It's purpo se is for storage only. Jared Anna MD IMG FILM LIBRARY ORDERABLES Performing Organization Address City/State/ZIP Code Phon e Number ISADORA ISADORA [place], [place] documented in this encounter Visit Diagnoses Not on filedocumented in this encounter
--- OUTSIDE RECORDS SUMMARY | 2022-05-21 01:03 | XMS_ITS | Encounter Summary ---
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 [address] Referral ID Status Reason Start Date Expiration Date Visits V isits Requested Authorized [id number] Closed Specialty 03/04/2021 09/04/2022 1 1 Service Requested Encounter Details Date Type Department Care Team Description 03/13/2021 Hospital Encounter Radiology at [facility] Eneida, Grade 2 follicular [facility] Bina Smith MD lymphoma of lymph Drive [facility] nodes of multiple [facility] [place] [address] HEMATOLOGY/ONCOLOG [phone] Y DEPT. [place], [place] [address] Social History Tobacco Use Types [...] Sign Reading Time Taken Comments Blood Pressure 137/63 03/13/2021 1:15 PM EDT Pulse 68 03/13/2021 12:40 PM EDT Temperature 36.4 ??C (97.5 ??F) 03/13/2021 12:45 PM EDT Respiratory Rate 18 03/13/2021 1:15 PM EDT Oxygen Saturation 95% 03/13/2021 1:15 PM EDT Inhaled Oxygen Concentration - - Weight - - Height - - Body Mass Index - - documented in this encounter Discharge Instructions Discharge InstructionsMaddison Perales RN - 03/13/2021 11:45 AM EDT Images from the original note were not included. [facility] Department of Vascular and Interventional Radiology Discharge Instructions for your Chest Port You have received a ???Power Port?? , which provides access for infusions and blood draws. What makes this a ???Power Port?? is the unique ability to ???power inject?? contrast (intravenous dye) through the port when getting a CT scan, which produces superior images (pictures). Patients who don???thave these special ports need to have an IV started if they need dye injected for their CT scan. Your port is printed with the letters ???CT?? which can be detected by x- ray to identify it as a ???Power Port?? . You will be provided with an ID card stating the machine repairer maintenance and type of port you have. Please carry this with you in a safe place. Bandage: There is a sterile dressing over the port site consisting of small gauze with a clear dressing (Tegaderm or [id number] ). This dressing should be left in place for 48 hours. If the clear dressing becomes loose you should place tape over the edges to secure it in place. Note: If you have steri-strips beneath your dressing, simply allow them to fall off. Do not peel them off. There may be Camak-gonzalez (skin glue) also, allow this to flake off. Pain: Apply ice bag to site (s) at 30 minute intervals (30 minutes on and 30 minutes off) for 24 hours?? . May use as needed for pain and/or bruising after 24 hours. Bathing: Do not take a shower until 48 hours after your port is placed; after this time you may shower with the dressing in place, then remove it and pat your skin dry. After 48 hours, we recommend that you cover the area with THE AQUA GUARD PROVIDED for 1 week while showering, facing away from the shower stream. You may use a bandaid to cover the site after the 48 hours are up if there is any drainage. No tub baths, whirlpools or swimming for one week following port placement. Flushing the mediport: If your port has not been used, it must be flushed every 30 days. What to expect when your port is accessed: 1. You may feel tenderness the first few times it is accessed but generally this subsides over time.Ask your healthcare provider to use a local anesthetic on the site if discomfort is a problem for you. You may ask for a prescription for a topical cream (EMLA) from your clinician; you may apply at home prior to your appointments, to help numb the skin over your port. 2. The clinician should be wearing sterile gloves and a mask during the access procedure. Anyone in the room with you should also have a mask on. 3. The skin over and 2 inches around the port should be cleaned with a disinfectant 4. Tell the clinician if you would like the skin numbed (lidocaine) before the access needle is placed. 5. Unless you are unable to take heparin (blood thinner), the port should be injected with a heparinsolution before deaccess (at end of each treatment or blood draw). When to call your healthcare provider: ??? If you notice bleeding from the puncture site in your neck, or from the port incision on your chest, you should apply firm pressure over the site for 10-15 minutes, keeping the site covered. Call if you are still bleeding after 10-15 minutes. ??? If you develop pain, redness, drainage or swelling at or around the port site, or the puncture site in the neck ??? If you develop fever (elevation of more than 2 degrees or greater than 101F) and/or shaking chills When to call the Interventional Radiology Department: Please call with any questions or concerns. Ifit is during regular office hours, please call [phone]. If it is after regular office hours, oron weekends or holidays, please call [phone] and ask to speak to the Gum Remover on callfor Interventional Radiology. XXX You have received medication during your procedure to help lessen anxiety and keep you comfortable. These medications affect judgement and reaction time. We recommend that you do not drive, operateequipment, sign any important documents, or smoke unattended for 24 hours following your procedure. Because of the sedation, be careful on stairs, as you may be unsteady on your feet. You may resume your regular diet as tolerated. IV site -- slight redness, or tenderness is normal, you can use a warm compress. If tenderness and redness increases or foul drainage occurs, please contact your MMurali Lorenzo. Revised 04/26/19 documented in this encounter Medications [...] 03/20/2021 (FLONASE) 50 mcg/actuation Nare route daily. [place]vis[place], Suspension cetirizine (ZyrTEC) 10 mg Take 10 mg by 0 03/20/2021 Tablet mouth daily. DILTiazem HCl 240 mg Tablet Take 240 mg by 0 08/1103/25/2021 Sustained Release 24 hr mouth daily. ubiquinone (coenzyme Q10) Take 200 mg by 0 05/06/2021 100 mg Capsule mouth daily. documented as of this encounter Progress Notes Adelita Hernández RN - 03/13/2021 11:45 AM EDT ANGIO NURSING DATABASE Name: BRIAN IBANEZ Date of : 1950 AGE: 70 y.o. [address] [address] [place], [place] [address] [address] (home) [phone] (work) Mobile: Telephone Information: Referring Provider: Bina Monique REASON FOR VISIT: Order Questions Answers Where will study be performed? [facility] Radiology [120] Is the patient on anticoagulant / antiplatelet therapy ? No Reason for exam and clinical history: Single-lumen Mediport placement for chemotherapy Plan Planned procedure: Mediport placement (03/09/21 1142) Labs to be performed day of procedure: No labs (03/09/21 1142) Sedation: Moderate (Conscious sedation) (03/09/21 1142) Prophylactic antibiotic : Ancef (03/09/21 1142) Contrast: No contrast (03/09/21 1142) Additional medications for procedure: Lidocaine (03/09/21 1142) Planned access site: Right IJ vein (03/09/21 1142) Position: Supine (03/09/21 1142) Consent: Pending (03/09/21 114) Medications to discontinue (and days held): None (03/09/21 1142) Cytopathology presence needed: No (03/09/21 114) Case Urgency:: G- Other (non E or F elective cases) (03/09/21 114) Allergies Allergen Reactions ??? Sulfa (Sulfonamide Antibiotics) Pertinent PSH: Past Surgical History: Procedure Laterality Date ??? IR THORACENTESIS RIGHT 02/24/2021 IR Thoracentesis Right 02/24/2021 Beni Wright MD [facility] INTERVENTIONL RAD Date/Procedure Meds Given/Comments 02/24/21 thora-1600 Local only 03/13/21 Mediport placement Ancef 2 g IV; Fentanyl 150 mcg IV; Versed 3 mg IV ? 1137 to procedure room 6 via stretcher. Onto table supine. All monitors, O2, safety strap in place. Meds per protocol. Laboratory Results: Lab Results Component Value Date CREATININE 0.98 02/24/2021 Lab Results Component Value Date K 3.9 02/24/2021 Lab Results Component Value Date PLATELET 155 02/24/2021 documented in this encounter H&P Notes Krishna Rivas PA - 03/13/2021 10:20 AM EDT INTERVENTIONAL RADIOLOGY FOCUSED H&P: Procedure: Planned procedure: Mediport placement The patient's history and physical exam have been reviewed and completed. There has been no intervalchange from that of the pre-operative history and physical exam done within the last 30 days. Physical Exam: Cardiovascular: Regular, Normal Pulmonary: Breath sounds clear to auscultation The planned procedure (and sedation plan if appropriate) , its benefits and risks, and alternatives were discussed with the patient. The patient consented to the procedure. PRE-SEDATION ASSESSMENT: Sedation Plan: moderate (conscious sedation) ASA: 2: Patient with mild systemic disease Mallampati: II: tonsillar pillars are blocked by the tongue Confirm NPO status: Yes History of anesthetic complications: No Current medications reviewed: Yes Allergies reviewed: Yes Source Note - Becky Riggins PA - 03/09/2021 1:52 PM EDT Images from the original note were not included. Interventional Radiology Focused Pre-procedure H&P: PCP: Jared Anna MD Referring Provider: Bina Monique Planned procedure: Mediport placement Procedure indication: Follicular lymphoma, need for long-term durable venous access for chemotherapy IR workflow: Procedure request received through Interventional Radiology eDH order queue. Order Questions Answers Where will study be performed? [facility] Radiology [120] Is the patient on anticoagulant / antiplatelet therapy ? No Reason for exam and clinical history: Single-lumen Mediport placement for chemotherapy History of Present Illness: Per chart review, Brian Ibanez is a 70 y.o. female with PMH of follicular non-Hodgkin's lymphoma (initial site: left supraclavicular lymph nodes) who presents to Interventional Radiology to undergo Mediport placement for systemic chemotherapy. Remainder of patient's medical and surgical history, allergies, medications, and social/family history obtained below as previously outlined in patient's medical record. IR History: Date/Procedure Meds Given/Comments 02/24/21 thoracensis-1600 Local only ? Imagin10/17/20 Assessment: 70 y.o. female with follicular NHL presenting to Interventional Radiology for Mediport placement. Plan Planned procedure: Mediport placement Labs to be performed day of procedure: No labs Sedation: Moderate (Conscious sedation) Prophylactic antibiotic : Ancef Contrast: No contrast Additional medications for procedure: Lidocaine Planned access site: Right IJ vein Position: Supine Consent: Pending Medications to discontinue (and days held): None Cytopathology presence needed: No Case Urgency:: G- Other (non E or F elective cases) Labs: Lab Results Component Value Date HGB 12.7 02/24/2021 HCT 38.7 02/24/2021 WBC 4.7 02/24/2021 PLATELET 155 02/24/2021 BUN 18 02/24/2021 CREATININE 0.98 02/24/2021 ALBUMIN 4.5 02/24/2021 BILITOT 0.5 02/24/2021 AST 22 02/24/2021 ALT 15 02/24/2021 ALKPHOS 97 02/24/2021 Allergies: Sulfa (sulfonamide antibiotics) Medications: Current Outpatient Medications on File Prior to Encounter Medication Sig Dispense Refill ??? lisinopriL-hydrochlorothiazide (zestoretic) 20-25 mg Tablet Take 1 tablet by mouth daily. ??? fluticasone propionate (FLONASE) 50 mcg/actuation Salvisa, Suspension 1 spray by Each Nare route daily. (Patient not taking: Reported on 03/04/2021) 16 g 12 ??? cetirizine (ZyrTEC) 10 [...] medications on file prior to encounter. Past Medical/Surgical history: Patient Active Problem List Diagnosis Code ??? 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 Hypertension I10 ??? Hypothyroidism E03.9 ??? Hypercholesterolemia E78.00 No past medical history on file. Past Surgical History: Procedure Laterality Date ??? IR THORACENTESIS RIGHT 02/24/2021 IR Thoracentesis Right 02/24/2021 Beni Wright MD [facility] INTERVENTIONL RAD Social History and Habits: Social History Tobacco Use ??? Smoking status: Former Smoker Quit date: 1990 Years since quittin.6 ??? Smokeless tobacco: Never Used Vaping Use ??? Vaping Use: Never used Substance Use Topics ??? Alcohol use: Yes Comment: Glass of wine 2-3 nights a week ??? Drug use: Not on file Significant Family History: No family history on file. Pertinent ROS: as per HPI Physical Exam: Pending (to be performed in IR the day of procedure) ASA: Pending (to be assessed in IR the day of procedure) Mallampati class: Pending (to be assessed in IR the day of procedure) 03/09/2021 Becky Riggins PA-C Becky Riggins PA - 03/09/2021 1:52 PM EDT Images from the original note were not included. Interventional Radiology Focused Pre-procedure H&P: PCP: Jared Anna MD Referring Provider: Bina Monique Planned procedure: Mediport placement Procedure indication: Follicular lymphoma, need for long-term durable venous access for chemotherapy IR workflow: Procedure request received through Interventional Radiology eDH order queue. Order Questions Answers Where will study be performed? [facility] Radiology [120] Is the patient on anticoagulant / antiplatelet therapy ? No Reason for exam and clinical history: Single-lumen Mediport placement for chemotherapy History of Present Illness: Per chart review, Brian Ibanez is a 70 y.o. female with PMH of follicular non-Hodgkin's lymphoma (initial site: left supraclavicular lymph nodes) who presents to Interventional Radiology to undergo Mediport placement for systemic chemotherapy. Remainder of patient's medical and surgical history, allergies, medications, and social/family history obtained below as previously outlined in patient's medical record. IR History: Date/Procedure Meds Given/Comments 02/24/21 thoracensis-1600 Local only ? Imagin10/17/20 Assessment: 70 y.o. female with follicular NHL presenting to Interventional Radiology for Mediport placement. Plan Planned procedure: Mediport placement Labs to be performed day of procedure: No labs Sedation: Moderate (Conscious sedation) Prophylactic antibiotic : Ancef Contrast: No contrast Additional medications for procedure: Lidocaine Planned access site: Right IJ vein Position: Supine Consent: Pending Medications to discontinue (and days held): None Cytopathology presence needed: No Case Urgency:: G- Other (non E or F elective cases) Labs: Lab Results Component Value Date HGB 12.7 02/24/2021 HCT 38.7 02/24/2021 WBC 4.7 02/24/2021 PLATELET 155 02/24/2021 BUN 18 02/24/2021 CREATININE 0.98 02/24/2021 ALBUMIN 4.5 02/24/2021 BILITOT 0.5 02/24/2021 AST 22 02/24/2021 ALT 15 02/24/2021 ALKPHOS 97 02/24/2021 Allergies: Sulfa (sulfonamide antibiotics) Medications: Current Outpatient Medications on File Prior to Encounter Medication Sig Dispense Refill ??? lisinopriL-hydrochlorothiazide (zestoretic) 20-25 mg Tablet Take 1 tablet by mouth daily. ??? fluticasone propionate (FLONASE) 50 mcg/actuation [place]visa, Suspension 1 spray by Each Nare route daily. (Patient not taking: Reported on 03/04/2021) 16 g 12 ??? cetirizine (ZyrTEC) 10 [...] medications on file prior to encounter. Past Medical/Surgical history: Patient Active Problem List Diagnosis Code ??? 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 Hypertension I10 ??? Hypothyroidism E03.9 ??? Hypercholesterolemia E78.00 No past medical history on file. Past Surgical History: Procedure Laterality Date ??? IR THORACENTESIS RIGHT 02/24/2021 IR Thoracentesis Right 02/24/2021 Beni Wright MD [facility] INTERVENTIONL RAD Social History and Habits: Social History Tobacco Use ??? Smoking status: Former Smoker Quit date: 1989 Years since quittin.6 ??? Smokeless tobacco: Never Used Vaping Use ??? Vaping Use: Never used Substance Use Topics ??? Alcohol use: Yes Comment: Glass of wine 2-3 nights a week ??? Drug use: Not on file Significant Family History: No family history on file. Pertinent ROS: as per HPI Physical Exam: Pending (to be performed in IR the day of procedure) ASA: Pending (to be assessed in IR the day of procedure) Mallampati class: Pending (to be assessed in IR the day of procedure) 03/09/2021 Becky Riggins PA-C documented in this encounter Plan of Treatment Upcoming Encounters Date Type Specialty Care Team Description 06/16/2022 Office Visit Hematology and Oncology Jackie Dillon, ADULT EDUCATOR [facility] HEMATOLOGY/[facility] DEPT. [place], [place] [address] (Wo rk) 06/16/2022 Infusion Hematology and Oncology documented as of this encounter Procedures Procedure Name Priority Date/Time Associated Diagnosis Comme nts IR MEDIPORT Routine 03/13/2021 12:53 PM Grade 2 follicular Re sults for this PLACEMENT EDT lymphoma of lymph procedure are in nodes of multiple the result s regions section. documented in this encounter Results IR Mediport Placement (03/13/2021 12:53 PM EDT) Anatomical Region Laterality Modality X-Ray Angiography Specimen (Source) Anatomical Location Collection Method / Collectio n Time Received Time / Laterality Volume Narrative 03/14/2021 3:26 PM EDT Interventional Radiology Procedure Note Procedure: Chest port placement (CT comp atible) Indication: follicular lymphoma, durable intermediate central venous access for chemotherapy Procedure summary: 1.) Venous access with ultrasound guidan ce 2.) Tunneled port insertion under fluoro scopic guidance Pre-procedure: Informed consent for the procedure including risks, benefits, and alternatives was obtained. Active time-out was performed prior to the procedure. The site was pre pared and draped using maximal sterile barrier technique. ?? Sedation: The patient received split dos es of intravenous ??midazolam and fentanyl from the interventional radiolo gy nurse while pulse, pressure, and oxygen saturation were continuously monitored. Technique: The right internal jugular ve in was sonographically evaluated and determined to be patent. A permanent image was stored. Local anesthetic was administered. The vein wa s accessed via real-time ultrasound and micropuncture set with 21 gauge needle. A 0.018 wire was advanced into superior vena cava. The remainder of the procedure was perfo rmed under fluoroscopic guidance. A 4 Fr introducer sheath was placed and the wire exchanged for a 0.035 J wire. The wire was advanced into the inf erior vena cava. Local anesthetic was administered on the anterior chest w all inferolateral to the puncture site. A 2 cm transverse incision was mad e in the right anterior chest wall, and with blunt dissection the port pocket was created. A trocar was then used to advance the catheter subcut aneously to the venous access site. A 4 Fr introducer sheath was excha nged for a peel-away sheath over the wire. The wire and inner obturator w ere removed and the catheter advanced into the superior vena cava und er fluoroscopic guidance. The catheter was trimmed to appropriate jay th and attached to the port. The port was inserted into the pocket and th e sheath was removed. Catheter tip location was identified and a permanent image was stored. The port flushed and aspirated well. ??The pocket was haley sed using a two-layer technique with 2-0 vicryl deep interrupted and 4-0 vicryl running sutures. The skin closed was with dermabond. The port was not left accessed. Medications: Lidocaine 1% <10 cc subcuta neous, lidocaine 1% with epinephrine <20 cc subcutaneous, fentany l 150 mcg IV, midazolam 3 mg IV; prophylaxis: cefazolin 2 gm IV Contrast: None Fluoroscopy: 4.08 mGy Estimated blood loss: 15 mL Complications: No immediate Findings 1. Patent, compressible right internal j ugular vein by ultrasound evaluation. 2. Catheter tip located in the superior cavoatrial junction. Impression 1. Placement of a power-injectable, Medc omp 8 Fr Dignity Mini Profile single-lumen port in right chest. The po rt may be used immediately. Service provider: Krishna Rivas PA-C Attending of record: Maria Elena Wright MD ( I was present and scrubbed for the entire procedure) I was present during the intraservice t kobe as documented by the IR Nurse. 03/13/2021 Bina Monique MD IMG IR ORDERABLES documented in this encounter Visit Diagnoses Diagnosis 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 documented in this encounter Administered Medications Inactive Administered Medications - up to 3 most recent administrations Medication Order MAR Action Action Date Dose Rate Site ceFAZolin (Ancef) 2 g in New Bag (1 of 2) 03/13/2021 11:44 AM 2 g 100 mL/hr dextrose 5% 100 mL (2 x 1 EDT g/50 mL premix bags) infusion 2 g, Intravenous, ONCE, 1 dose, On Tue03/13/21 at 1045, Administer over 30 Minutes, Redose every 3 hours if CrCl is greater than 20. Redose every 8 hours if CrCl is less than 20. Total dose of ceFAZolin 2 grams, administered using two ceFAZolin 1g/50mL IV bags. Infuse each ceFAZolin 1g/50mL bag over 30 minutes (100 ml/hr) for total infusion time of 60 minutes. On the MAR, document administration of first bag using New Bag (1 of 2) MAR action for dose of 1g. On the MAR, document administration of second bag using Next Bag (2 of 2) MAR action for dose of 1g (resulting in total dose of 2g)., Angio/IR (Day of Procedure), Indication for (Active or Suspected): Prophylaxis fentaNYL (pf) (50 mcg/mL) multi-dose Given 03/13/2021 12:22 PM E DT 25 mcg injection 25-50 mcg 25-50 mcg, Intravenous, EVERY 3 MIN PRN, Starting on Tue03/13/21 at 1020, Until Tue03/13/21 at 1248, Pain, per unit protocol, - Start dose 50 mcg (reduce dose to 25 mcg if history of sedation sensitivity). - Titration dose 25-50 mcg IV, (based on patient response) every 3 minutes PRN, to maintain procedural pain less than 2 per pain Scale. Maximum dose: 50 mcg/dose, 250 mcg/hour For use in Interventional Radiology (IR) only for procedural sedation with direct provider supervision and verbal order., Angio/IR (Day of Procedure), Routine Given 03/13/2021 12:16 PM EDT 25 mcg Given 03/13/2021 12:06 PM EDT 25 mcg lidocaine (Xylocaine) 1% (10 mg/mL) injection Given 12:03 PM EDT 10 mg 10 mg 10 mg, Subcutaneous, ONCE, 1 dose, On Tue03/13/21 at 1045, For use in Interventional Radiology (IR) only for procedure with direct provider supervision and verbal order., Angio/IR (Day of Procedure), Routine lidocaine-EPINEPHrine (1% - 1:100,000) Given 03/13/2021 12:09 PM EDT 50 mLs injection 50 mL 50 mL, Intradermal, ONCE, 1 dose, On Tue03/13/21 at 1045, For use in Interventional Radiology (IR) only for Radiofrequency Ablation of Saphenous Vein procedure with direct provider supervision and verbal order., Angio/IR (Day of Procedure), Routine midazolam (pf) (Versed) (1 mg/mL) multi-dose Given 09/2020 12:23 PM EDT 0.5 mg injection 0.5-1 mg 0.5-1 mg, Intravenous, EVERY 3 MIN PRN, Starting on Tue03/13/21 at 1020, Until Tue03/13/21 at 1248, Sleep, - Start dose; 1 mg (Reduce dose to 0.5 mg if history of sedation sensitivity). - Titration dose: 0.5 mg - 1 mg (based on patient response) every 3 minutes PRN to obtain RASS score of -3. Maximum dose: 1 mg per dose, 5 mg/hour. For use in Interventional Radiology (IR) only for procedural sedation with direct provider supervision and verbal order., Angio/IR (Day of Procedure), Routine Given 03/13/2021 12:16 PM EDT 0.5 mg Given 03/13/2021 12:06 PM EDT 1 mg sodium chloride 0.9 % (flush) (BD PosiFlush Given 03/13/2021 10:45 AM EDT 5 mLs Normal Saline 0.9) flush 5 mL 5 mL, Intravenous, 2 TIMES DAILY, First dose on Tue03/13/21 at 1045, Until Discontinued, Angio/IR (Day of Procedure), Routine documented in this encounter
--- OUTSIDE RECORDS SUMMARY | 2022-05-21 01:03 | XMS_ITS | Encounter Summary ---
:1950 Author Organization [facility] [address] Care Team Providers Name Role Phone Jared Anna MD Primary Care Provider Encounter Details Date Type Department Care Team Description 01/16/2021 Telephone Hematology Oncology at VillelaLeticia RN [place] [phone] Social History Tobacco Use Types Packs/Day Years Used Date Former Smoker Quit: 1989 Smokeless Tobacco: Never Used Sex Assigned at Date Recorded Not on file documented as of this encounter Miscellaneous Notes Telephone Encounter - Leticia Villela RN - 01/16/2021 11:03 AM EDT Received fax from [facility] stating LDH could not be added on the test drawn on 01/13. Pt has office visit on 01/21. documented in this encounter Plan of Treatment Upcoming Encounters Date Type Specialty Care Team Description 06/16/2022 Office Visit Hematology and Oncology Jackie Dillon, MORTGAGE LOAN ORIGINATOR [facility] HEMATOLOGY/[facility] DEPT. [place], [place] [address] (Wo rk) 06/16/2022 Infusion Hematology and Oncology documented as of this encounter Visit Diagnoses Not on filedocumented in this encounter Care Teams Oracle Software Engineer Relationship Specialty Start Date End Date Jared Anna MD PCP - General 06/02/10 02/08/21 documented as of this encounter
--- OUTSIDE RECORDS SUMMARY | 2022-05-21 01:03 | XMS_ITS | Encounter Summary ---
:1950 Author Organization [facility] [place] [address] Care Team Providers Name Role Phone Jared Anna MD Primary Care Provider Reason for Visit Reason Onset Date Comments Other 11/20/2020 Encounter Details Date Type Department Care Team Description 11/20/2020 Telephone Hematology/Oncology at Izzy Del Valle RN Other [place] [phone] Social History Tobacco Use Types Packs/Day Years Used Date Former Smoker Quit: 1989 Smokeless Tobacco: Never Used Sex Assigned at Date Recorded Not on file documented as of this encounter Miscellaneous Notes Telephone Encounter - Izzy Mayer RN - 11/20/2020 1:27 PM EDT Pt calls and states she had surgery on her left achilles heel in 2020, she is now full weight bearing and has been doing PT. She has swelling in left lower leg that goes down over night but is significant by the end of her work day. She states her therapist was concerned. She was concerned this may have to do with her lymphoma. I asked her to call her surgeon and discuss this and see what they say and if they fell it is anything we need to deal with to call us back. Pt agrees and states she will call as soon as we get off phone. I told her I would let Dr. Monique and Venus Mendieta HYDRAULICS ENGINEER know also. documented in this encounter Plan of Treatment Upcoming Encounters Date Type Specialty Care Team Description 06/16/2022 Office Visit Hematology and Oncology Jackie Dillon, PHARMACOLOGY PROFESSOR [facility] HEMATOLOGY/[facility] DEPT. [place], [place] [address] (Wo rk) 06/16/2022 Infusion Hematology and Oncology documented as of this encounter Visit Diagnoses Not on filedocumented in this encounter Care Teams Insights Analyst Relationship Specialty Start Date End Date Jared Anna MD PCP - General 06/02/10 02/08/21 documented as of this encounter
--- OUTSIDE RECORDS SUMMARY | 2022-05-21 01:03 | XMS_ITS | Encounter Summary ---
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 [address] [place] [address] Referral ID Status Reason Start Date Expiration Date Visits V isits Requested Authorized [id number] Closed Specialty 03/18/2021 09/15/2022 1 1 Service Requested Encounter Details Date Type Department Care Team Description 03/18/2021 TH Visit Hematology/Oncology Bina Monique rade 2 follicular (TeleHealth) at [facility] MD lymphoma of lymph [address] [facility] nodes of multiple [facility] [place] [phone] HEMATOLOGY/ONCOLOGY [phone] DEPT. [place], [place] [address] (Wo rk) Social History Tobacco [...] documented as of this encounter Progress Notes Bina Monique MD - 03/18/2021 3:30 PM EDT Subjective: Patient ID: Brian Ibanez is a 70 y.o. female here for f/u of NHL Patient Active Problem List Diagnosis ??? 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 Biopsy at [place]. 09/06/19 LN Interpretation at [facility] Outside slide(s) labeled [id number], collection date 09/06/2019. Lymph node, supra clavicular [...] number compared to prior PET/CT of 09/2019. Rug Cleaner lymph node within the highest FDG uptake in the left level 2 region measures 10 mm with SUV max of 18.7 (axial image 26). ?? CHEST: FDG avid adenopathy in the bilateral axillary and bilateral mediastinal and hilar regions, similar in size compared to CT chest of 10/17/2020. Rug Cleaner lymph node with the highest FDG uptake [...] size compared to prior CT of 10/17/2020. Rug Cleaner adenopathy in the highest FDG uptake in [...] uptake (SUV max greater than 12) with event sales representative nodes detailed above, are highly suspicious for lymphoma transformation and would be amenable to CT-guided biopsy if clinically indicated. 4. Large right pleural effusion, unchanged compared to prior CT of 02/16/2021. ECHO [place] EF LDH normal 171 BMBx pending ??? Hypertension ??? Hypothyroidism ??? Hypercholesterolemia I confirmed with the patient that this was a telephone encounter in lieu of an office visit. Chargesmay be incurred. Patient agreed and gave me permission to proceed. Patient prefers to be called: Brian Spouse/Partner: Other support: HPI She was diagnosed with follicular lymphoma [...] a pleural effusion. She underwent thoracentesis at [facility] which confirmed involvement with lymphoma. She had been under a watch and wait approach with her follicular lymphoma, but now will need treatment. We will need to start with restaging. She reports dyspnea at rest. as bad as it was w/ her last effusion before thoracentesis in February Achy back and quesy stomach. Losing weight b/c not eating. Not eating b/c of early satiety. Working. She has BMBx tomorrow. Mediport is in place. PET scan was done yesterday. Results were briefly reviewed with her. I personally reviewed the images She reports that an echocardiogram was done by Dr. Joel in [place] over the summer as part ofher work-up [...] Hematological: Negative. Psychiatric/Behavioral: Negative. Objective: Physical Exam Telephone appt LABS: Results for BRIAN IBANEZ ( ) [...] Comments Below SPEP Comments Unknown See Note [place] Free Light Chain Latest Ref Range: 0.72 - 2.75 mg/dL 0.69 (L) Lambda Free Light Chain Latest Ref Range: 0.57 - 2.15 mg/dL 0.76 [place] Lambda FLC Ratio Latest Ref Range: 0.4000 [...] - compatible with low grade follicular lymphoma RADIOLOGY: 03/17/21 PET EXAMINATION: NM PET CT [...] number compared to prior PET/CT of 09/2019. Rug Cleaner lymph node within the highest FDG uptake in the left level 2 region measures 10 mm with SUV max of 18.7 (axial image 26). ?? CHEST: FDG avid adenopathy in the bilateral axillary and bilateral mediastinal and hilar regions, similar in size compared to CT chest of 10/17/2020. Rug Cleaner lymph node with the highest FDG uptake [...] size compared to prior CT of 10/17/2020. Rug Cleaner adenopathy in the highest FDG uptake in [...] uptake (SUV max greater than 12) with event sales representative nodes detailed above, are highly [...] fluid sent for LLS, and flow cytometry. She reports that a echocardiogram was done this summer in [place] with Dr. Joel. We will obtain those results. She has a Mediport in place. Unless there is an unanticipated finding during her repeat biopsy, I anticipate using bendamustine and rituximab x6 cycles. 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 Given the risks of Covid while undergoing chemotherapy, I would prefer that she not and she isin agreement with that. Once her biopsy has returned, she will need a PTI chemotherapy teaching session with Venus Mendieta prior to start of treatment. ?? Cardiac - Dr Hoang. Concern for heart failure. Work-up was negative, ultimately she was found to have normal cardiac function. Effusion was secondary to her lymphoma. Will obtain echocardiogram results from the summer 2020 COVID vaccination X 2. Booster vaccination planned for 03/20/2021 Plan: ?? CT-guided biopsy of presacral PET avid lymph node at [facility] ?? Sedated bone marrow biopsy 03/19/2021 ?? Thoracic surgery consultation, appointment scheduled for 03/20/2021 ?? Covid booster recommended, patient is planning for 03/19/2021 ?? Return to clinic after all of the above for PTI chemotherapy teaching with Venus and the start of treatment ?? Mediport placement single lumen in place ?? Plan appointment at [facility] next week ??I spent 30 min on this telehealth encounter including chart review, time with the patient and documentation. documented in this encounter Plan of Treatment Upcoming Encounters Date Type Specialty Care Team Description 06/16/2022 Office Visit Hematology and Oncology Jackie Dillon, FINANCE ATTORNEY [facility] HEMATOLOGY/[facility] DEPT. [place], [place] [address] (Wo rk) 06/16/2022 Infusion Hematology and Oncology documented as of this encounter Results IR Biopsy Lymph Node [...] who have questions please contact the health progressive care nurse that requested your imaging first. ? Electronically signed by: Olivier hidalgo MD, [facility] ([phone]), at 04/09/2021 2:42 PM Narrative 04/09/2021 2:42 [...] 4 core samples within the 18-gauge system. Dennis removed. Patient tolerated the procedure well. No [...] 4 core samples within the 18-gauge system. Dennis removed. Patient tolerated the procedure well. No [...] ho have questions please contact the health progressive care nurse that requested your imaging first. Electronically signed by: Olivier hidalgo MD, [facility] ([phone]), at 04/09/2021 2:42 PM Bina Monique MD IMG IR ORDERABLES documented in this encounter Visit Diagnoses Diagnosis 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 documented in this encounter
--- OUTSIDE RECORDS SUMMARY | 2022-05-21 01:03 | XMS_ITS | Encounter Summary ---
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 HEMATOLOGY/[place] [address] [place] [address] Referral ID Status Reason Start Date Expiration Date Visits V isits Requested Authorized [id number] Closed Specialty 03/05/2021 06/03/2021 1 1 Service Requested Encounter Details Date Type Department Care Team Description 03/17/2021 Hospital Encounter Nuclear Medicine at Barbara Monique MD [facility] [address] HEMATOLOGY/[place] [address] DEPT. [phone] [place], [place] [address] (Wo rk) Social History Tobacco [...] 03/20/2021 (FLONASE) 50 mcg/actuation Nare route daily. [place], Suspension cetirizine (ZyrTEC) 10 mg Take 10 [...] Office Visit Hematology and Oncology Jackie Dillon, ASSOCIATE PRODUCER [facility] HEMATOLOGY/[facility] DEPT. [place], [place] [address] (Wo rk) 06/16/2022 Infusion Hematology and Oncology documented as of this encounter Procedures Procedure Name Priority Date/Time Associated Diagnosis Comme nts NM PET CT SKULL Routine 03/17/2021 8:45 AM Grade 2 follicular Results for this BASE TO MID-THIGH EDT lymphoma of lymph proce dure are in ([facility]) nodes of multiple the result s regions section. POCT GLUCOSE Routine 03/17/2021 6:44 AM Results f or this EDT procedure are i n the results section. documented in this encounter Results POCT Glucose (03/17/2021 6:44 AM EDT) athologist Signature POC Glucose 94 65 - 199 [facility] mg/dL [facility] Comment: Supplemental ranges: <140 mg/dL before meals <180 mg/dL all other times of the day Specimen Anatomical Collection Method Collection Time Receive d Time (Source) Location / / Volume Laterality Blood 03/17/2021 6:44 AM 6:44 EDT AM EDT Bina Monique MD POINT OF CARE TEST ORDERABLE S Performing Organization Address City/State/[place] [address] documented in this encounter Visit Diagnoses Not on filedocumented in this encounter
--- OUTSIDE RECORDS SUMMARY | 2022-05-21 01:03 | XMS_ITS | Encounter Summary ---
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 Interventionl Rad Procedures [place] [address] HEMATOLOGY/ONCOLOGY Phone: 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 Rad Nuclear Med Procedures NM PET CT Skull Base to Mid-thigh [facility] HEMATOLOGY/[place] [address] [place] [address] Referral ID Status Reason Start Date Expiration Date Visits V isits Requested Authorized [id number] Closed Specialty 03/05/2021 06/03/2021 1 1 Service Requested Encounter Details Date Type Department Care Team Description 03/04/2021 Office Visit Hematology/Oncology Bina Monique 2 follicular at [facility] MD Luis lymphoma of [address] nodes of multiple [facility] [address] HEMATOLOGY/ONCOLOGY [phone] DEPT. [place], [place] [address] (Wo rk) Social History Tobacco [...] Sign Reading Time Taken Comments Blood Pressure 148/73 03/04/2021 2:36 PM EDT Pulse 81 03/04/2021 2:36 PM EDT Temperature 36.3 ??C (97.3 ??F) 03/04/2021 2:36 PM EDT Respiratory Rate 16 03/04/2021 2:36 PM EDT Oxygen Saturation 98% 03/04/2021 2:36 PM EDT Inhaled Oxygen Concentration - - Weight 86.2 kg (190 lb) 03/04/2021 2:36 PM EDT Height 162.4 cm (5' 3.94) 03/04/2021 2:36 PM EDT Body Mass Index 32.68 03/04/2021 2:36 PM EDT documented in this encounter Progress Notes Bina Monique MD - 03/04/2021 2:30 PM EDT Subjective: Patient ID: Brian Ibanez is a 70 y.o. female here for f/u of NHL Patient Active Problem List Diagnosis ??? 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 Biopsy at [place]. 09/06/19 LN Interpretation at [facility] Outside slide(s) labeled [id number], collection date 09/06/2019. Lymph node, supra clavicular [...] Fluid review specimen ) supports the above ??? Hypertension ??? Hypothyroidism ??? Hypercholesterolemia HPI It was a pleasure to see Ms. Ibanez back in clinic today. She was diagnosed with follicular lymphoma during Covid and there was no indication for treatment so she has been followed with a watch and wait approach. Brian states that she started feeling short of breath in the beginning of December which progressed slowly but by mid February, it progressed quite rapidly. She went to the emergency room and was found to have a pleural effusion. She underwent thoracentesis at [facility] which confirmed involvement with lymphoma. She had been under a watch and wait approach with her follicular lymphoma, but now will need treatment. We will need to start with restaging. She reports fatigue,some dyspnea, no NS or fevers. COVID vaccination X 2. Booster vaccination recommended prior to the start of treatment Review of Systems Constitutional: Positive for fatigue. [...] for BRIAN IBANEZ ( ) as of 03/04/2021 15:02 Ref. Range 02/24/2021 08:46 WBC Latest Ref Range: 4.0 - 9.5 x10(3)/mcL 4.7 RBC Latest Ref Range: 4.00 - 5.21 x10(6)/mcL 4.27 Hemoglobin Latest Ref Range: 11.7 - 15.5 gm/dL 12.7 Hematocrit Latest Ref Range: 35.7 - 45.8 % 38.7 MCV Latest Ref Range: 82.6 - 94.4 fL 90.6 MCH Latest Ref Range: 27.1 - 32.0 pg 29.7 MCHC Latest Ref Range: 31.7 - 35.0 gm/dL 32.8 RDWSD Latest Ref Range: 37.0 - 46.0 fL 43.7 RDWCV Latest Ref Range: 11.5 - 14.1 % 13.2 Platelets Latest Ref Range: 145 - 357 x10(3)/mcL 155 MPV Latest Ref Range: 7.6 - 12.9 fL 10.2 nRBC % Auto Latest Units: % 0.0 nRBC Abs Auto Latest Ref Range: 0.000 - 0.000 x10(3)/mcL 0.000 Neutr Abs (ANC) Latest Ref Range: 1.70 - 6.10 x10(3)/mcL 2.82 Neutrophils % Latest Units: % 59.9 Immature Gran % Latest Units: % 0.20 Lymphocytes % Latest Units: % 29.2 Monocytes % Latest Units: % 7.8 Eosinophils % Latest Units: % 2.3 Basophils % Latest Units: % 0.6 Lorraine Gran Abs Latest Ref Range: 0.00 - 0.04 x10(3)/mcL 0.01 Lymphocytes Abs Latest Ref Range: 0.9 - 3.2 x10(3)/mcL 1.4 Monocyte Abs Latest Ref Range: 0.3 - 0.9 x10(3)/mcL 0.4 Eosinophils Abs Latest Ref Range: 0.0 - 0.4 x10(3)/mcL 0.1 Basophils Abs Latest Ref Range: 0.0 - 0.1 x10(3)/mcL 0.0 Sodium Latest Ref Range: 135 - 145 mmol/L 140 Potassium Latest Ref Range: 3.5 - 5.0 mmol/L 3.9 Chloride Latest Ref Range: 98 - 107 mmol/L 103 CO2 Latest Ref Range: 22 - 31 mmol/L 27 Anion Gap Latest Ref Range: 5 - 15 mmol/L 10 BUN Latest Ref Range: 8 - 18 mg/dL 18 Creatinine Latest Ref Range: 0.70 - 1.20 mg/dL 0.98 Estimated GFR Latest Ref Range: >=60 mL/min/1.73 m?? 58 (L) Calcium Latest Ref Range: 8.5 - 10.5 mg/dL 9.5 Glucose Lvl Latest Ref Range: 65 - 199 mg/dL 107 Total Protein Latest Ref Range: 6.1 - 8.0 gm/dL 6.6 Albumin Latest Ref Range: 3.2 - 5.2 gm/dL 4.5 Total Bilirubin Latest Ref Range: 0.2 - 1.3 mg/dL 0.5 Alk Phos Latest Ref Range: 35 - 105 unit/L 97 AST Latest Ref Range: 0 - 30 unit/L 22 ALT Latest Ref Range: 0 - 30 unit/L 15 LDH Latest Ref Range: 110 - 220 unit/L 175 PATHOLOGY: 02/24/21 DIAGNOSIS Lymphoma cells present - compatible with low grade follicular lymphoma RADIOLOGY: ??10/17/20 EXAMINATION: CT CHEST ABDOMEN PELVIS W [...] conglomerate. No pleural effusion at that time. She will need restaging this will include a PET scan, labs, and bone marrow biopsy. She prefers sedated. Unless there is an unanticipated finding during her restaging, I anticipate using bendamustine and rituximab x6 cycles. 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 Given the risks of Covid while undergoing chemotherapy, I would prefer that she not and she is in a greement with that. ?? Cardiac - Dr Honag. Concern for heart failure. Work-up was negative, ultimately she was found to have normal cardiac function. Effusion was secondary to her lymphoma. COVID vaccination X 2. Booster vaccination recommended prior to the start of treatment Plan: ?? PET scan staging ?? Sedated bone marrow biopsy ?? Labs well at [facility] for either of the above ?? Chest x-ray week of 03/09/2021 to ensure there is no reaccumulation of her pleural effusion. This can be done in [place]. ?? Return to clinic after all of the above for PTI chemotherapy teaching with Venus and the start of treatment ?? Mediport placement single lumen ?? documented in this encounter Plan of Treatment Upcoming Encounters Date Type Specialty Care Team Description 06/16/2022 Office Visit Hematology and Oncology Jackie Dillon, [facility] HEMATOLOGY/ONCOL [place] DEPT. [place], [place] [address] (Wo rk) 06/16/2022 Infusion Hematology and Oncology documented as of this encounter Results NM PET CT Skull [...] who have questions please contact the health hearing care practitioner that requested your imaging first. ? Narrative 03/17/2021 10:04 AM EDT EXAMINATION: NM PET CT STANDARD SKULL BASE TO MID-THIGH CLINICAL HISTORY: Non-Hodgkin lymphoma, staging Follicular lymphoma staging. ??Patient h as been watching weight, but now with new malignant pleural effusion. ??Compared t o outside CT TECHNIQUE: Following IV injection of 18- ovusdk-6-xvsylimjfkok (FDG) a standard uptake of approximately 60 [...] number compared to prior PET/CT of 0. School Physical Therapist lymph node within the hig hest FDG uptake in the left level 2 region measures 10 mm with SUV max of 18 .7 (axial image 26). CHEST: FDG avid adenopathy in the bilateral axi llary and bilateral mediastinal and hilar regions, similar in size compared to CT chest of 10/17/2020. School Physical Therapist lymph node with the highe st FDG [...] size compared to prior CT of 10/17/2020. School Physical Therapist adenopathy in the highest FDG uptake in [...] CT TECHNIQUE: Following IV injection of 18- eeregc-6-lqulpnirwlad (FDG) a standard uptake of approximately 60 [...] number compared to prior PET/CT of 0. School Physical Therapist lymph node within the hig hest FDG uptake in the left level 2 region measures 10 mm with SUV max of 18 .7 (axial image 26). CHEST: FDG avid adenopathy in the bilateral axi llary and bilateral mediastinal and hilar regions, similar in size compared to CT chest of 10/17/2020. School Physical Therapist lymph node with the highe st FDG [...] size compared to prior CT of 10/17/2020. School Physical Therapist adenopathy in the highest FDG uptake in [...] ho have questions please contact the health hearing care practitioner that requested your imaging first. Bina Monique MD IMG PET ORDERABLES IR Mediport Placement (03/13/2021 12:53 PM EDT) Anatomical Region Laterality Modality X-Ray Angiography Specimen (Source) Anatomical Location Collection Method / Collectio n Time Received Time / Laterality Volume Narrative 03/14/2021 3:26 PM EDT Interventional Radiology Procedure Note Procedure: Chest port placement (CT comp atible) Indication: follicular lymphoma, durable nursing home central venous access for chemotherapy Procedure summary: [...] 03/13/2021 Bina Monique MD IMG IR ORDERABLES HIV Screen, 4th Generation ([facility]/CGP/APD/NLH) (03/13/2021 9:27 AM EDT) Analysis Performed At Patho logist [place] Signature HIV-1/2 Ab and Negative Negative [facility]ORATORY Comment: This 4th Generation HIV test [...] Low Risk of HIV Infection MA RY [facility] Specimen Anatomical Collection Method Collection Time Receive d Time (Source) Location / / Volume Laterality Blood 03/13/2021 9:27 AM 9:34 EDT AM EDT Resulting Agency Comment Spec In Lab Bina Monique MD IMMUNOLOGY ORDERABLES Performing Organization Address City/State/[place] [address] Hepatitis C Antibody (03/13/2021 9:27 AM EDT) Analysis Performed At Patho logist Time Signature Hepatitis C Ab Negative Negative [facility] Specimen Anatomical Collection Method Collection Time Receive d Time (Source) Location / / Volume Laterality Blood 03/13/2021 9:27 AM 9:34 EDT AM EDT Resulting Agency Comment Spec In Lab Bina Monique MD IMMUNOLOGY ORDERABLES Performing Organization Address City/[facility]/[place] [address] Hepatitis B Surface Antigen (03/13/2021 9:27 AM EDT) Analysis Performed At Patho logist Time Signature HepB Surface Negative Negative [facility]ORATORY Specimen Anatomical Collection Method Collection Time Receive d Time (Source) Location / / Volume Laterality Blood 03/13/2021 9:27 AM 9:34 EDT AM EDT Resulting Agency Comment Spec In Lab Bina Monique MD CHEMISTRY ORDERABLES Performing Organization Address City/[facility] [place] [address] Hepatitis B Surface Antibody (03/13/2021 9:27 AM EDT) P athologist Signature HepB Surface 3.8 IU/L [facility] LABORATORY Comment: HepB Surface Ab Quant: Unvaccinated: < 8.5 IU/L Vaccinated: > 11.5 IU/L HepB Surface Ab Negative [facility] Comment: Patient is presumed to be not vaccinated or immune to HBV infection. Expected Results: Vaccinated: Positive Unvaccinated: Negative Specimen Anatomical Collection Method Collection Time Receive d Time (Source) Location / / Volume Laterality Blood 03/13/2021 9:27 AM 9:34 EDT AM EDT Resulting Agency Comment Spec In Lab Bina Monique MD IMMUNOLOGY ORDERABLES Performing Organization Address City/[facility] Phon e Number [address] Hepatitis B Core Antibody, Total (03/13/2021 9:27 AM EDT) Analysis Performed At Patho logist Time Signature Hep B Core Ab Negative Negative [facility] Specimen Anatomical Collection Method Collection Time Receive d Time (Source) Location / / Volume Laterality Blood 03/13/2021 9:27 AM 9:34 EDT AM EDT Resulting Agency Comment Spec In Lab Bina Monique MD CHEMISTRY ORDERABLES Performing Organization Address City/[facility]/[place] [address] (ABNORMAL) Free Light Chains, Serum (03/13/2021 9:27 AM EDT) Analysis Performed At Patho logist Time Signature [place] Free 0.69 (L) 0.72 - [facility] Light Chain 2.75 mg/dL [facility] Lambda Free 0.76 0.57 - [facility] Light Chain 2.15 mg/dL [facility] [place] Lambda 0.9079 0.4000 - [facility] FLC Ratio 2.5800 [facility] Specimen Anatomical Collection Method Collection Time Receive d Time (Source) Location / / Volume Laterality Blood 03/13/2021 9:27 AM 9:34 EDT AM EDT Resulting Agency Comment Spec In Lab Bina Monique MD CHEMISTRY ORDERABLES Performing Organization Address City/[facility]/[place] [address] (ABNORMAL) Protein Electrophoresis, serum (03/13/2021 9:27 AM EDT) Patholo gist Method Time Signature Total Prot 5.9 (L) 6.1 - 8.0 MAU Elec gm/dL [facility] Albumin Elect 4.02 3.60 - 6.00 MAU gm/dL [facility] Alpha1-Globul 0.19 0.10 - 0.30 MAU in gm/dL [facility] Alpha2-Globul 0.71 0.40 - 0.90 MAU in gm/dL [facility] Beta Globulin 0.69 0.50 - 1.00 MAU gm/dL [facility] Gamma 0.28 (L) 0.50 - 1.30 MAU Globulin gm/dL [facility] M1 Band Comments None MAU Below Detected [facility] SPEP Comments See Note [facility] Comment: Serum protein electrophoresis [...] Monique MD CHEMISTRY ORDERABLES Performing Organization Address City/[facility]/ZIP Code Phon e Number [address] Uric acid (03/13/2021 9:27 AM EDT) athologist Signature Uric Acid 6.4 2.5 - 6.5 [facility] mg/[facility] Specimen Anatomical Collection Method Collection Time Receive d Time (Source) Location / / Volume Laterality Blood 03/13/2021 9:27 AM 9:34 EDT AM EDT Resulting Agency Comment Spec In Lab Bina Monique MD CHEMISTRY ORDERABLES Performing Organization Address City/[facility]/ZIP Code Phon e Number [address] Lactate Dehydrogenase (03/13/2021 9:27 AM EDT) athologist Signature LDH 177 110 - 220 [facility]/L [facility] Specimen Anatomical Collection Method Collection Time Receive d Time (Source) Location / / Volume Laterality Blood 03/13/2021 9:27 AM 9:34 EDT AM EDT Resulting Agency Comment Spec In Lab Bina Monique MD CHEMISTRY ORDERABLES Performing Organization Address City/[facility]/ZIP Code Phon e Number [address] (ABNORMAL) Immunoglobulins, Quantitative (03/13/2021 9:27 AM EDT) athologist Signature IgG 376 (L) 700 - 1,600 [facility] mg/dL [facility] Comment: Pediatric Reference Intervals obtained f rom the Caliper Reference Interval project. http://www.sickkids.ca/caliperp roject/index.html IgA 29 (L) 70 - 400 mg/dL [facility] IgM 15 (L) 40 - 230 mg/dL [facility] Specimen Anatomical Collection Method Collection Time Receive d Time (Source) Location / / Volume Laterality Blood 03/13/2021 9:27 AM 9:34 EDT AM EDT Resulting Agency Comment Spec In Lab Bina Monique MD CHEMISTRY ORDERABLES Performing Organization Address City/State/[place] [address] (ABNORMAL) Comprehensive metabolic panel (non-fasting) (03/13/2021 9:27 AM EDT) P athologist Signature Glucose Lvl 105 65 - 199 [facility] mg/dL [facility] Comment: Diabetes: >=200 mg/dL plus symp toms BUN 19 (H) 8 - 18 mg/dL [facility] Creatinine 0.97 0.70 - 1.20 mg/dL [facility] Sodium 142 135 - 145 mmol/L [facility] Potassium 4.3 3.5 - 5.0 mmol/L [facility] Comment: Please note: ??Patients with WBC >100,00 0 may have falsely elevated Potassium levels. ??For accurate Potassium quantif ication in these patients send serum separator tube (gold top) for subsequent determinations. ??Contact the Clinical Chemistry Laboratory if there are any qu estions. Chloride 106 98 - 107 mmol/L [facility] CO2 27 22 - 31 mmol/L [facility] Anion Gap 9 5 - 15 mmol/L [facility] Calcium 9.4 8.5 - 10.5 mg/dL [facility] Total Protein 6.2 6.1 - 8.0 gm/dL [facility] Albumin 4.2 3.2 - 5.2 gm/dL [facility] AST 22 0 - 30 unit/L [facility] ALT 16 0 - 30 unit/L [facility] Alk Phos 95 35 - 105 unit/L [facility] Total Bilirubin 0.6 0.2 - 1.3 mg/dL [facility] Estimated GFR 58 (L) >=60 mL/min/1.73 m?? [facility] Comment: This patient? s [...] Organization Address City/State/[place] [address] documented in this encounter Visit Diagnoses Diagnosis 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 documented in this encounter
--- OUTSIDE RECORDS SUMMARY | 2022-05-21 01:03 | XMS_ITS | Encounter Summary ---
:1950 Author Organization [place] [address] Care Team Providers Name Role Phone Unavailable Primary Care Provider Unavailable Encounter Details Date Type Department Care Team Description 02/24/2021 Hospital Encounter Hematology and Grade 1 follicular Oncology at [facility] [place] [address] Social History Tobacco Use Types Packs/Day [...] 20 03/20/2021 (FLONASE) 50 mcg/actuation Nare route [place], Suspension daily. cetirizine (ZyrTEC) 10 mg Take [...] Office Visit Hematology and Oncology Jackie Dillon, BARGE WORKER [facility] HEMATOLOGY/ONCOL SHADIA DEPT. [place], [place] [address] (Wo rk) 06/16/2022 Infusion Hematology and Oncology documented as of this encounter Procedures Procedure Name Priority Date/Time Associated Comments Diagnosis HEMOGRAM STAT 02/24/2021 8:46 AM Grade 1 follicular Res ults for this EDT lymphoma of lymph procedure are in nodes of multiple the result s regions section. DIFFERENTIAL, STAT 02/24/2021 8:46 AM Grade 1 follicular Re sults for this AUTOMATED EDT lymphoma of lymph procedure are in nodes of multiple the result s regions section. HC CBC,PLT & AUTO DIFF STAT 02/24/2021 8:46 AM Grade 1 foll icular EDT lymphoma of lymph nodes of multiple regions HC LACTIC STAT 02/24/2021 8:46 AM Grade 1 follicular Res ults for this DEHYDROGENASE EDT lymphoma of lymph procedure are in nodes of multiple the result s regions section. COMPREHENSIVE STAT 02/24/2021 8:46 AM Grade 1 follicular Re sults for this METABOLIC PANEL EDT lymphoma of lymph procedu re are in (NON-FASTING) nodes of multiple the resul ts regions section. documented in this encounter Results Differential, Automated (02/24/2021 8:46 AM EDT) P athologist Signature Neutrophils % 59.9 % [facility] Neutr Abs (ANC) 2.82 1.70 - [facility] 6.10 [facility] x10(3)/[facility] LABORATORY Lymphocytes % 29.2 % [facility] Lymphocytes Abs 1.4 0.9 - 3.2 [facility] x10(3)/[facility] LABORATORY Monocytes % 7.8 % [facility] Monocyte Abs 0.4 0.3 - 0.9 [facility] x10(3)/[facility] LABORATORY Eosinophils % 2.3 % [facility] Eosinophils Abs 0.1 0.0 - 0.4 [facility] x10(3)/[facility] LABORATORY Basophils % 0.6 % [facility] Basophils Abs 0.0 0.0 - 0.1 [facility] x10(3)/[facility] LABORATORY Immature Gran % 0.20 % [facility] Comment: Immature granulocytes(IG's)percentage an d absolute count will include metamyelocytes, myelocytes, and promyelo cytes. Blood smears from CBCs yielding IG's will be scanned manually for concor dance. If this scan disagrees with the automated IG or if promyelocytes are not ed, a manual differential will be performed. Lorraine Gran Abs 0.01 0.00 - 0.04 x10(3)/[facility] Specimen Anatomical Collection Method Collection Time Receive d Time (Source) Location / / Volume Laterality Blood 02/24/2021 8:46 AM 8:54 EDT AM EDT Resulting Agency Comment Spec In Lab Bina Seals APRN HEMATOLOGY ORDERABLES Performing Organization Address City/State/[place] [address] Hemogram (02/24/2021 8:46 AM EDT) athologist Signature WBC 4.7 4.0 - 9.5 [facility] x10(3)/[facility] LAB[facility]ATORY RBC 4.27 4.00 - [facility] x10(6)/[facility]ORATORY Hemoglobin 12.7 11.7 - [facility] 15.5 gm/dL [facility] Hematocrit 38.7 35.7 - [facility] 45.8 % [facility] MCV 90.6 82.6 - [facility] 94.4 [facility]ATORY MCH 29.7 27.1 - [facility] 32.0 pg [facility] MCHC 32.8 31.7 - [facility] 35.0 gm/dL [facility] Platelets 155 145 - 357 [facility] x10(3)/[facility] LABORATORY RDWSD 43.7 37.0 - [facility] 46.0 [facility] LABORATORY RDWCV 13.2 11.5 - [facility] 14.1 % [facility] MPV 10.2 7.6 - 12.9 [facility] LABORATORY nRBC % Auto 0.0 % [facility] nRBC Abs Auto 0.000 0.000 - [facility] 0.000 [facility] x10(3)/[facility] LABORATORY Specimen Anatomical Collection Method Collection Time Receive d Time (Source) Location / / Volume Laterality Blood 02/24/2021 8:46 AM 8:54 EDT AM EDT Resulting Agency Comment Spec In Lab Bina Seals APRN HEMATOLOGY ORDERABLES Performing Organization Address City/State/[place] [address] (ABNORMAL) Comprehensive metabolic panel (non-fasting) (02/24/2021 8:46 AM EDT) athologist Signature Glucose Lvl 107 65 - 199 [facility] mg/dL [facility] Comment: Diabetes: >=200 mg/dL plus symp toms BUN 18 8 - 18 mg/dL [facility] Creatinine 0.98 0.70 - 1.20 mg/dL [facility] Sodium 140 135 - 145 mmol/L [facility] Potassium 3.9 3.5 - 5.0 mmol/L [facility] Comment: Please note: ??Patients with WBC >100,00 0 may have falsely elevated Potassium levels. ??For accurate Potassium quantif ication in these patients send serum separator tube (gold top) for subsequent determinations. ??Contact the Clinical Chemistry Laboratory if there are any qu estions. Chloride 103 98 - 107 mmol/L [facility] CO2 27 22 - 31 mmol/L [facility] Anion Gap 10 5 - 15 mmol/L [facility] Calcium 9.5 8.5 - 10.5 mg/dL [facility] Total Protein 6.6 6.1 - 8.0 gm/dL [facility] Albumin 4.5 3.2 - 5.2 gm/dL [facility] AST 22 0 - 30 unit/L [facility] ALT 15 0 - 30 unit/L [facility] Alk Phos 97 35 - 105 unit/L [facility] Total Bilirubin 0.5 0.2 - 1.3 mg/dL [facility] Estimated GFR 58 (L) >=60 mL/min/1.73 m?? [facility] Comment: This patient? s estimated glomerular filtration rate (eGFR) is between 58 mL/min/1.73 m2 (patients with less muscl e mass) and 67 mL/min/1.73 m2 (patients with more muscle mass) [...] (Source) Location / / Volume Laterality Blood 02/24/2021 8:46 AM 1 8:54 EDT AM EDT Resulting Agency Comment Spec In Lab Bina Seals APRN CHEMISTRY ORDERABLES Performing Organization Address City/[facility]/[place] [address] Lactate Dehydrogenase (02/24/2021 8:46 AM EDT) athologist Signature LDH 175 110 - 220 [facility] unit/L [facility] Specimen Anatomical Collection Method Collection Time Receive d Time (Source) Location / / Volume Laterality Blood 02/24/2021 8:46 AM 8:54 EDT AM EDT Resulting Agency Comment Spec In Lab Bina Seals APRN CHEMISTRY ORDERABLES Performing Organization Address City/[facility]/[place] [address] documented in this encounter Visit Diagnoses Diagnosis Grade 1 follicular lymphoma of lymph nod es of multiple regions documented in this encounter
--- OUTSIDE RECORDS SUMMARY | 2022-05-21 01:03 | XMS_ITS | Encounter Summary ---
:1950 Author Organization [facility] [address] Care Team Providers Name Role Phone Jared Anna MD Primary Care Provider Encounter Details Date Type Department Care Team Description 10/22/2020 Office Visit Hematology/Oncology Jose Monique MD [facility] DR HEMATOLOGY/[place] [address] Grade 2 follicular at [facility] Venus Mendieta APRN [facility] [address] HEMATOLOGY/[place] [address] lymphoma [address] nodes of multiple [place] regions [phone] Social History Tobacco Use Types Packs/Day Years Used Date Former Smoker Quit: 1989 Smokeless Tobacco: Never Used Sex Assigned at Date Recorded Not on file documented as of this encounter Last Filed Vital Signs Vital Sign Reading Time Taken Comments Blood Pressure 145/57 10/22/2020 11:42 AM EDT Pulse 73 10/22/2020 11:42 AM EDT Temperature 36.4 ??C (97.5 ??F) 10/22/2020 11:42 AM EDT Respiratory Rate 20 10/22/2020 11:42 AM EDT Oxygen Saturation 100% 10/22/2020 11:42 AM EDT Inhaled Oxygen - - Concentration Weight 90.5 kg (199 lb 9.6 10/22/2020 11:42 self repert due to oz) AM EDT walking boot Height 162.6 cm (5' 4) 10/22/2020 11:42 AM EDT Body Mass Index 34.26 10/22/2020 11:42 AM EDT documented in this encounter Progress Notes Venus Mendieta, CALL CENTER SUPPORT CONSULTANT - 10/22/2020 11:30 AM EDT Subjective: Patient ID: Brian Bliss is a 70 y.o. female here for f/u of NHL Patient Active Problem List Diagnosis ??? 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 Biopsy at [place]. 09/06/19 LN Interpretation at [facility] Outside slide(s) labeled [id number], collection date 09/06/2019. Lymph node, supra clavicular [...] at the start of the COVID-19 epidemic. ??? Hypertension ??? Hypothyroidism ??? Hypercholesterolemia HPI Brian is doing OK. After a few years of achilles tendonitis, pain and discomfort she decided to have surgery. This was done about a montha go. She tolerated well and is heling well. She is still wearing a boot. She has been a bot more tired lately. School is going well and students are going back daytime caregiver next week! Brian is fully vaccinated for Covid 19. She has had no recent infections, no nightsweats. NO changes in her usual palpable adenopathy. Continue to wax and wane. Review of Systems Constitutional: Positive for fatigue. Mild HENT: Negative. Eyes: Negative. Respiratory: Negative. Negative [...] and SC nodes. Also bilat axillary nodes 1-2cm. Skin: General: Skin is warm and dry. Neurological: Mental Status: She is alert and oriented to person, place, and time. ??EXAMINATION: CT CHEST ABDOMEN PELVIS W CONTRAST (GENERIC) ?? CLINICAL HISTORY: Hematologic malignancy, surveillance Non-Hodgkin's lymphoma ? TECHNIQUE: Helical CT of the chest, abdomen, and pelvis was performed following the intravenous administration of contrast. 104 cc of Omnipaque 350. Oral contrast was administered. ?? COMPARISON: 02/11/2020 ?? FINDINGS: ?? Chest: Lungs and large airways: No suspicious [...] enmeshed in the adenopathy of the Pelvis. Lab Results Component Value Date WBC 4.4 10/17/2020 HGB 11.1 (L) 10/17/2020 HCT 32.7 (L) 10/17/2020 MCV 90.3 10/17/2020 PLATELET 133 (L) 10/17/2020 Chemistry Component Value Date/Time NA 139 10/17/2020 1041 K 4.2 10/17/2020 1041 CL 103 10/17/2020 1041 CO2 27 10/17/2020 1041 BUN 21 (H) 10/17/2020 1041 CREATININE 0.80 10/17/2020 1041 Component Value Date/Time CALCIUM 9.3 10/17/2020 1041 ALKPHOS 78 10/17/2020 1041 AST 20 10/17/2020 1041 ALT 17 10/17/2020 1041 BILITOT 0.5 10/17/2020 1041 Assessment and Plan: Brian Bliss?is a very pleasant 70 year old women with follicular lymphoma grade 1/2 and grade 3A, diagnosed in August of 2019. ?Her FLIPI ??Score is 3 ??(age, stage, LN sites). She has had no treatment to date. ?? She is doing very well with no recent infections. NO B symptoms. She does have a slight drop in her Hg and platelets today. Of note she has had recent achilles tendonitis surgery. Her CT scan shows mixed results which is not unusual for follicular NHL. There is some concern over the pelvic mass - however indicator lesions are required to better assess. Radiology has been notified to please addend read with indicator lesions. Will review with Dr. Monique once this is done. ?? We reviewed the waxing and waning tendencies of low grade NHL. We discussed triggers for treatment and importance of self care. We will continue to monitor prospectively. Brian Bliss will return to clinic in 3 months she will call before then if any concerns or changes in status. ?? documented in this encounter Plan of Treatment Upcoming Encounters Date Type Specialty Care Team Description 06/16/2022 Office Visit Hematology and Oncology Jackie Dillon APRN [facility] [place] [address] (Wo rk) 06/16/2022 Infusion Hematology and Oncology documented as of this encounter Visit Diagnoses Diagnosis 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 documented in this encounter Care Teams Receiving Associate Relationship Specialty Start Date End Date Jared Anna MD PCP - General 06/02/10 02/08/21 documented as of this encounter
--- OUTSIDE RECORDS SUMMARY | 2022-05-21 01:03 | XMS_ITS | Encounter Summary ---
:1950 Author Organization [facility] [place] [address] Care Team Providers Name Role Phone Jared Anna MD Primary Care Provider Encounter Details Date Type Department Care Team Description 01/20/2021 External Results [facility] [address] [place] [phone] Social History Tobacco Use Types Packs/Day Years Used Date Former Smoker Quit: 1989 Smokeless Tobacco: Never Used Sex Assigned at Date Recorded Not on file documented as of this encounter Plan of Treatment Upcoming Encounters Date Type Specialty Care Team Description 06/16/2022 Office Visit Hematology and Oncology Jackie Dillon, R[facility]LA [facility] HEMATOLOGY/ONCOL SHADIA DEPT. [place], [place] [address] (Wo rk) 06/16/2022 Infusion Hematology and Oncology documented as of this encounter Procedures Procedure Name Priority Date/Time Associated Diagnosis Comme nts CBC (WITH DIFF) Routine 01/13/2021 Results for this procedure are i n the results section . COMPREHENSIVE METABOLIC Routine 01/13/2021 Resu lts for this PANEL (NON-FASTING) procedur e are in the results section . documented in this encounter Results Comprehensive metabolic panel (non-fasting) (01/13/2021) P athologist Signature Glucose Lvl 122 BUN 22 Creatinine 0.90 BUN/Cre Ratio 24 Sodium 138 Potassium 4.2 Chloride 99 Calcium 9.5 Total Protein 6.6 Albumin 4.7 Total Bilirubin 0.6 Alk Phos 88 AST 24 ALT 16 Specimen (Source) Anatomical Location Collection Method / Collectio n Time Received Time / Laterality Volume Blood Historical Provider CHEMISTRY ORDERABLES CBC (with Diff) (01/13/2021) P athologist Signature WBC 4.5 Hemoglobin 12.5 Hematocrit 37.2 MCV 90.0 MCH 30.3 Platelets 177 Neutr Abs (ANC) 2.8 Specimen (Source) Anatomical Location Collection Method / Collectio n Time Received Time / Laterality Volume Blood 01/13/2021 Historical Provider HEMATOLOGY ORDERABLES documented in this encounter Visit Diagnoses Not on filedocumented in this encounter Care Teams Telephone Station Installer Relationship Specialty Start Date End Date Jared Anna MD PCP - General 06/02/10 02/08/21 documented as of this encounter
--- OUTSIDE RECORDS SUMMARY | 2022-05-21 01:03 | XMS_ITS | Encounter Summary ---
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 Bina Monique Hasson, Rian M, MD MD [facility] [place] [address] HEMATOLOGY/ONCOLOGY Phone: [place] [address] Referral ID Status Reason Start Date Expiration Date Visits V isits Requested Authorized [id number] Closed Consult, 03/17/2021 03/17/2022 1 1 Test & Treat Encounter Details Date Type Department Care Team Description 03/17/2021 Orders Only Hematology and Bina Monique Grade 2 follicular Oncology at [facility] MD Luis lymphoma of lymph [facility] nod es of multiple [address] [place] HEMATOLOGY/ONCOLOGY [phone] DEPT. [phone] [place], [place] [address] (Wo rk) Social History Tobacco [...] Office Visit Hematology and Oncology Jackie Dillon, AUTOMATIC SILK SCREEN PRINTER [facility] [place] [place] [address] (Wo rk) 06/16/2022 Infusion Hematology and Oncology Scheduled Referrals Name Type Priority Associated Diagnoses Order S chedule Referral to Outpatient Referral Routine Grade 2 follicular Or dered: Thoracic Surgery lymphoma of lymph 2020 nodes of multiple regions documented as of this encounter Visit Diagnoses Diagnosis 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 documented in this encounter
--- OUTSIDE RECORDS SUMMARY | 2022-05-21 01:03 | XMS_ITS | Encounter Summary ---
:1950 Author Organization [place] [address] Care Team Providers Name Role Phone Jared Anna MD Primary Care Provider Reason for Visit Reason Onset Date Comments Other 01/05/2021 swelling Encounter Details Date Type Department Care Team Description 01/05/2021 Telephone Hematology/Oncology at Izzy Del Valle RN Other (swelling) [place] [phone] Social History Tobacco Use Types Packs/Day Years Used Date Former Smoker Quit: 1989 Smokeless Tobacco: Never Used Sex Assigned at Date Recorded Not on file documented as of this encounter Miscellaneous Notes Telephone Encounter - Izzy Mayer RN - 01/05/2021 1:29 PM EDT Pt calls and states a couple weeks ago she developed swelling in both lower extremties 1 plus pitting edema and in her abdomen. She had some shortness of breath.She saw her PCP and they put her on lasix. She lost 9.5 lbs in a week. Her shortness of breath did get better but not all gone. 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 She is wondering if any of this is from her lymphoma. I told her I would review with Venus Mendieta PARTS WASHER and get back to her with her answer. She agreed with plan. Per Dr. Monique does not think swelling from lymphoma, will see her in 2 weeks and do physical exam, she agrees with cardiology work up. Left message for pt about this she will call back with questions or concerns. documented in this encounter Plan of Treatment Upcoming Encounters Date Type Specialty Care Team Description 06/16/2022 Office Visit Hematology and Oncology Jackie Dillon, BOLOGNA LACER [facility] ER HEMATOLOGY/ONCOL SHADIA DEPT. [place], [place] [address] (Wo rk) 06/16/2022 Infusion Hematology and Oncology documented as of this encounter Visit Diagnoses Not on filedocumented in this encounter Care Teams Salvage Clerk Relationship Specialty Start Date End Date Jared Anna MD PCP - General 06/02/10 02/08/21 documented as of this encounter
--- OUTSIDE RECORDS SUMMARY | 2022-05-21 01:03 | XMS_ITS | Encounter Summary ---
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 [address] Referral ID Status Reason Start Date Expiration Date Visits V isits Requested Authorized [id number] Closed Specialty 02/20/2021 08/23/2022 1 1 Service Requested Encounter Details Date Type Department Care Team Description 02/20/2021 Orders Only Hematology and Bina Monique Grade 2 follicular Oncology at [facility] MD Luis lymphoma of lymph [facility] nod es of [facility] [place], [place] HEMATOLOGY/ONCOLOGY [address] DEPT. [phone] [place], [place] [address] (Wo rk) Social History Tobacco Use Types Packs/Day Years Used Date Former Smoker Quit: 1989 Smokeless Tobacco: Never Used Sex Assigned at Date Recorded Not on file documented as of this encounter Progress Notes Bina Monique MD - 02/20/2021 3:00 PM EDT Pt with new pleural effusion Will have her come to [facility] and get 1. Cbc, cmp, ldh 2. CXR 3 then after the above IR thoracentesis. All orders placed Send fluid for Cell count, ldh, albumin, TP, LLS, flow cytometry documented in this encounter Plan of Treatment Upcoming Encounters Date Type Specialty Care Team Description 06/16/2022 Office Visit Hematology and Oncology Jackie Dillon, DICTAPHONE TECHNICIAN [facility] HEMATOLOGY/[facility] DEPT. [place], [place] [address] (Wo rk) 06/16/2022 Infusion Hematology and Oncology documented as of this encounter Results IR Thoracentesis Right (02/24/2021 [...] The posterolateral aspect was prepped and dr spauldinged in a sterile fashion. 1% lidocaine (<10 [...] Nurse. Bina Monique MD IMG IR ORDERABLES Immunophenotyping Flow Cytometry (02/24/2021 11:10 AM EDT) Component Value Ref Test Analysis Performed At [facility] Range Method Time Signature Immunophenotyping See [facility] LABORATORY Comment: When completed by the Pathologist, the F low Cytometry Report ([id number]) will display under the Pathology Result s section within eDH. Specimen Anatomical Collection Method Collection Time Receive d Time (Source) Location / / Volume Laterality Other 02/24/2021 11:10 02/24/2021 AM EDT 11:52 AM EDT Resulting Agency Comment Spec In Lab Bina Monique MD HEMATOLOGY ORDERABLES Performing Organization Address City/[facility]/ZIP Code Phon e Number [address] Leukemia Lymphoma Screen Pleural, Right (02/24/2021 11:10 AM EDT) [facility] Method Time Signature LLS BF Type Pleural, [facility] LABORATORY Leukemia See Comment [facility] LABORATORY Comment: See Fluid Review Report [id number] under Hematopathology Reports. Specimen Anatomical Collection Method Collection Time Receive d Time (Source) Location / / Volume Laterality Pleural, Right 02/24/2021 11:10 AM EDT 11:44 AM EDT Resulting Agency Comment Spec In Lab Bina Monique MD BODY FLUIDS AND STOOLS ORDER TIERRA Performing Organization Address City/[facility]/ZIP Code Phon e Number [address] Cell Count Body Fluid Pleural, Right (02/24/2021 11:10 AM EDT) Patholo gist Method Time Signature Spec Type BF Pleural, [facility] LABORATORY Color BF Yellow [facility] LABORATORY Appearance BF Hazy [facility] WBC BF Ct 3,397 /[facility] LABORATORY Comment: Guideline listed below apply to [...] context for interpretation. Polymorph % 0 % [facility] LABORATORY Comment: Polymorphonuclear cell percent and absol chicho values may contain Neutrophils, Eosinophils, and Basophils. Body fluid s mear will be scanned manually for concordance. Mononuc % 100 % [facility] LABORATORY Comment: Mononuclear cell percent and absolute va lues may contain Lymphocytes and Monocytes. Body fluid smear will be scan bladimir manually for concordance. Polymorph BF ABS 12 /[facility] LABORATORY Comment: Polymorphonuclear cell percent and absol chicho values may contain Neutrophils, Eosinophils, and Basophils. Body fluid s mear will be scanned manually for concordance. Mononuc ABS 3,385 /[facility] LABORATORY Comment: Mononuclear cell percent and absolute [...] Address City/State/ZIP Code Phon e Number [address] Lactate Dehydrogenase Body Fluid Pleural, Right (02/24/2021 11:10 AM EDT) P athologist Signature LDH BF 115 unit/L [facility] Comment: No reference range is available for the specimen type submitted. ??The performance of this assay for the submit bernard type has not been validated and results should be interpreted accordingl y and with regard to the patient's clinical status. LDH, BF Type Pleural, Right [facility]OR[facility] Specimen Anatomical Collection Method Collection Time Receive d Time (Source) Location / / Volume Laterality Pleural, Right 02/24/2021 11:10 1 AM EDT 11:47 AM EDT Resulting Agency Comment Spec In Lab Bina Monique MD BODY FLUIDS AND STOOLS ORDER TIERRA Performing Organization Address City/[facility] Phon e Number [address] Protein Level Body Fluid Pleural, Right (02/24/2021 11:10 AM EDT) P athologist Signature Protein, BF 4.2 gm/dL [facility] Comment: There is no reference range available fo r the specimen type submitted. For determination of transudative vs. ex udative pleural effusions: Transudates: Pleural Total Protein/Serum Total Protein <0.5 g/dL. Exudates: Pleural Total Protein/Serum To pedro luis Protein >0.5 g/dL. Protein BF Type Pleural, Right [facility] LABORATORY Specimen Anatomical Collection Method Collection Time Receive d Time (Source) Location / / Volume Laterality Pleural, Right 02/24/2021 11:10 1 AM EDT 11:47 AM EDT Resulting Agency Comment Spec In Lab Bina Monique MD BODY FLUIDS AND STOOLS ORDER TIERRA Performing Organization Address City/[facility] Code Phon e Number [address] Albumin Level Body Fluid Pleural, Right (02/24/2021 11:10 AM EDT) P athologist Signature Albumin, BF 3.3 gm/dL [facility] Comment: In the evaluation of ascites, [...] clinical status. Albumin BF Type Pleural, Right [facility]ORY Specimen Anatomical Collection Method Collection Time Receive d Time (Source) Location / / Volume Laterality Pleural, Right 02/24/2021 11:10 AM EDT 11:47 AM EDT Resulting Agency Comment Spec In Lab Bina Monique MD BODY FLUIDS AND STOOLS ORDER TIERRA Performing Organization Address [facility] Phon e Number [address] Body Fluid Culture, Aerobic Pleural Fluid (02/24/2021 11:02 AM EDT) Component Value Ref Test Analysis Performed At [facility] gist Range Method Time Signature Body Fluid No growth [facility] Culture [facility] LABORATORY Gram Stain Cytocentrifuge Gram Stain performed [facility] Neutrophils seen BIRNEY No microorganisms seen. [facility] LABORATORY Specimen Anatomical Collection Method Collection Time Receive d Time (Source) Location / / Volume Laterality Pleural Fluid 02/24/2021 11:02 02/24/2021 AM EDT 12:11 PM EDT Resulting Agency Comment Spec In Lab Bina Monique MD MICROBIOLOGY - GENERAL ORDER TIERRA Performing Organization Address City/[facility]/[place] [address] Cytopathology Non-Gynecological (02/24/2021 11:01 AM EDT) Specimen Anatomical Collection Method Collection Time Receive d Time (Source) Location / / Volume Laterality AP Specimen 02/24/2021 11:01 02/24/2021 AM EDT 11:52 AM EDT Narrative [facility] ORY - 02/24/2021 11:52 AM EDT Specimen requisition ordered. ??Separate Pathology report to follow Resulting Agency Comment Spec In Lab Bina Monique MD PATHOLOGY/CYTOLOGY ORDERABLE S Performing Organization Address City/[facility] [place] [address] XR Chest PA & Lateral (Generic) (02/24/2021 [...] who have questions please contact the health tree care foreman that requested your imaging first. ? Electronically signed by: Nicole Mejia MD, [facility] ([phone]), at 02/24/2021 11:37 AM Narrative 02/24/2021 11:37 [...] ho have questions please contact the health tree care foreman that requested your imaging first. Electronically signed by: Nicole Mejia MD, [facility] ([phone]), at 02/24/2021 11:37 AM Bina Monique MD IMG DX ORDERABLES documented in this encounter Visit Diagnoses Diagnosis 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 documented in this encounter
--- OUTSIDE RECORDS SUMMARY | 2022-05-21 01:03 | XMS_ITS | Encounter Summary ---
:1950 Author Organization [facility] [place] [address] Care Team Providers Name Role Phone Unavailable Primary Care Provider Unavailable Reason for Visit Reason Onset Date Comments Follow-up 02/23/2021 Encounter Details Date Type Department Care Team Description 02/23/2021 Telephone Hematology/Oncology at Izzy Del Valle RN Follow-up [place] [phone] Social History Tobacco Use Types Packs/Day [...] Telephone Encounter - Izzy Mayer RN - 02/23/2021 10:51 AM EDT Brian Calls stating she went to [place] [facility] last week as she was having difficulty breathing. It was found that she had right pleural effusion. A thoracentesis was set up for tomorrow at [facility]. She states her breathing continues to get worse but feels she is good to wait till tomorrow to have that done. I told her if things continue to get so bad she should return to [place] [facility] for further evaluation. She agrees with this plan. documented in this encounter Plan of Treatment Upcoming Encounters Date Type Specialty Care Team Description 06/16/2022 Office Visit Hematology and Oncology Jackie Dillon, EXECUTIVE CONSULTANT [facility] HEMATOLOGY/ONCOL [facility] DEPT. [place], [place] [address] (Wo rk) 06/16/2022 Infusion Hematology and Oncology documented as of this encounter Visit Diagnoses Not on filedocumented in this encounter
--- OUTSIDE RECORDS SUMMARY | 2022-05-21 01:04 | XMS_ITS | Encounter Summary ---
:1950 Author Organization [facility] [place] [address] Care Team Providers Name Role Phone Jared Anna MD Primary Care Provider Reason for Referral Diagnostic Test (Routine) - Closed Specialty Diagnoses / Procedures Referred By Contact Refer red To Contact Radiology Diagnoses Malignant lymphoma, undifferentiated cell, non-Burkitt's Bina Monique Mhmh Rad Nuclear Med Procedures NM PET CT Skull Base to Mid-thigh [facility] HEMATOLOGY/[place] [address] [place] [address] Referral ID Status Reason Start Date Expiration Date Visits V isits Requested Authorized [id number] Closed Specialty 09/17/2019 03/19/2021 1 1 Service Requested Diagnostic Test (Routine) - Closed Specialty Diagnoses / Procedures Referred By Contact Refer red To Contact Cardiology Diagnoses Malignant lymphoma, undifferentiated cell, non-Burkitt's Bina Monique Mhm[facility] Non-Inv Card Lab Procedures Echocardiogram Transthoracic(BRUCE) [facility] HEMATOLOGY/[place]OGY [place], [place]PT. [id number] [place] [address] Referral ID Status Reason Start Date Expiration Date Visits V isits Requested Authorized [id number] Closed Specialty 09/17/2019 09/16/2020 1 1 Service Requested Reason for Visit Reason Comments Follow-up Consultation (Routine) - Specialty Diagnoses / Procedures Referred By Contact Refer red To Contact Hematology and Diagnoses Unspecified B-cell lymphoma, lymph nodes of head, face, and neck Brenda Chu MD [facility] Hem Onc 3k Oncology [address] [facility] [address] [place] [address] [place] [address] Phone: Fax: Referral ID Status Reason Start Date Expiration Date Visits V isits Requested Authorized [id number] Consult, Test 09/12/2019 09/11/2020 6 [facility] PCP Updated and/or Approved Encounter Details Date Type Department Care Team Description 09/18/2019 Office Visit Hematology and Juwan Monique MD [facility] DR HEMATOLOGY/[place] [address] Malignant lymphoma, Oncology at [place] Bina Seals APRN [facility] [address] HEMATOLOGY/[place] [address] undifferentiated cell, [facility] [place] [address] Social History Tobacco Use Types Packs/Day Years Used Date Former Smoker Quit: 1989 Smokeless Tobacco: Never Used Sex Assigned at Date Recorded Not on file documented as of this encounter Last Filed Vital Signs Vital Sign Reading Time Taken Comments Blood Pressure 159/77 09/18/2019 9:38 AM EDT Pulse 67 09/18/2019 9:38 AM EDT Temperature 36.3 ??C (97.3 ??F) 09/18/2019 9:38 AM EDT Respiratory Rate 20 09/18/2019 9:38 AM EDT Oxygen Saturation 100% 09/18/2019 9:38 AM EDT Inhaled Oxygen Concentration - - Weight 88.9 kg (196 lb) 09/18/2019 9:38 AM EDT Height 160.3 cm (5' 3.11) 09/18/2019 9:38 AM EDT Body Mass Index 34.6 09/18/2019 9:38 AM EDT documented in this encounter Progress Notes Bina Monique MD - 09/18/2019 9:30 [place] [address] NEW PATIENT EVALUATION Patient Active Problem List Diagnosis ??? 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 Hypertension ??? Hypothyroidism ??? Hypercholesterolemia HISTORY OF PRESENT ILLNESS: Patient prefers to be called: Brian Support person(s) : Geovanny; son, Skyler. It was my pleasure to meet Brian Bliss today. Brian Bliss is a 69 y.o. year old female being seen for evaluation of newly diagnosed lymphoma. she is referred in consultaion from Dr. Jared Jones, at [facility] Minimal notes are available to but the patient presented with a LEFT supraclavicular mass. PCP office notes report that it was mobile, not painful except an occasional ache. She first noticed it in thefall 2018 and is grown since that time. Biopsy reportedly shows a B-cell lymphoma. We are waiting bio psy report and details. She did the [employer]unge [employer] at [place]. PMHX: Hypertension Hyperlipidemia Hypothyroidism Anxiety - nicely [...] Outpatient Medications Marked as Taking for the 09/18/19 encounter (Office Visit) with Bina Monique MD Medication Sig Dispense Refill ??? atorvastatin (Lipitor) 10 mg Tablet 10 [...] HISTORY Personal: to Geovanny. 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 Loves to cook and read and shop with friends and visit son. One son, Skyler, 36 yo in [place]. He is engaged! John jasso done Aug 2019! 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 Body surface area is 1.99 meters squared. GENERAL: Brian Bliss appears well and is in no acute distress. ENT: Oral pharynx clear. EYES: MATT NECK: Supple with L supraclav 2cm adenopathy. With well healed scar. R post lfat LN - barely appreciable. AXILLARY: 1.5cm L axilla INGUINAL LN: no [...] previous visit (from the past 72 hour(s)). Labs from 09/18/2019 White count 9.2, hemoglobin 12.1, platelets 214, ANC 4.0, PATHOLOGY: Pending for review at [facility] Path 09/06/19 Path report in care everywhere. Reports follicular lymphoma grade 1-2. Immunoperoxidase stains were performed on this case to further characterize the lesion. ANTIBODY(CLONE)(BLOCK):RESULT CD3 (SP7, [employer] Scientific) (A3): Highlights background T-cells PAX-5 (1EW, Leica) (A3): Highlights neoplastic cells BCL-2 Oncoprotein (124, Kenedy) (A3): Positive in neoplastic cells Ki67 (MIB-1) [...] clinical data is essential. RADIOLOGY STUDIES REVIEWED: None ASSESSMENT/PLAN: Brian Bliss is a very pleasant 69 y.o. female referred by Dr Jared Jones for newly diagnosed follicular lymphoma grade 1/2. Brian Bliss has palpable supraclavicular adenopathy That she says has grown since the fall. she will need staging studies including bilateral labs, and PET scan. Her CBC is normal, so I do not anticipate the need for bone marrow biopsy. I will see her back after the PET scan to review her staging studies. I neglected to reassure her that the staging and lymphoma is much different than other cancers, we will discuss this at her next appointment. At the next appointment I will also review the pathophysiology on lymphoma, and how It can affect blood, bone marrow, and lymph nodes I reviewed general NonHodgkins Lymphoma . I reviewed indolent, intermediate/aggressive and highly aggressive lymphomas. Follicular lymphoma is an indolent lymphoma - usually not curable, except in some early stage disease. However it often does not require immediate treatment and the watch and wait approach is recommended. We discussed the rationale for this approach and indications to treat. Major indications include but are not limited to: Drop in counts, Bulky adenopathy or organ compromise due to adenopathy. The clinical course of Follicular lymphomas is unpredictable but in most cases is quite good. Many times no treatment is needed for years and at her age, the lymphoma may not shorten her life expectancy. When treatment is required it often is with gentle chemotherapy and immunotherapy which has minimal side effects and is generally well tolerated. More recently, small molecules and targeted therapies are being used, and will likely be standard of care in the future. she will need life long f/u with intermittent appts and scans. I did mention the potential transformation from indolent to aggressive lymphomas. . I did my best to reassure her that at this time, I do not see cause for undue concern or worry. The next years will better define the anticipated course of her lymphoma as we follow it over time. Plan: ?? PET scan ?? ECHO ?? Labs today. ?? MRI neck done at [place] - will obtain images and report ?? Obtain Pathology for review I discussed all of the above with the patient and all of her questions were answered. Support and counseling given as appropriate. This note was written or modified using [employer] voice recognition software. The final note was screened for mistakes. Please excuse any remaining errors. total time: time in counselling: Copy Jared Anna MD . documented in this encounter Plan of Treatment Upcoming Encounters Date Type Specialty Care Team Description 06/16/2022 Office Visit Hematology and Oncology Jackie Dillon, OCCUPATIONAL THERAPY TECHNICIAN [facility] HEMATOLOGY/[place], [place] [address] (Wo rk) 06/16/2022 Infusion Hematology and Oncology documented as of this encounter Results NM PET CT Skull Base to Mid-thigh (10/04/2019 3:48 PM EDT) Anatomical Region Laterality Modality Positron Emission To mography (PET) Specimen (Source) Anatomical Location Collection Method / Collectio n Time Received Time / Laterality Volume Impressions 10/04/2019 4:43 PM EDT Extensive neva involvement by lymphoma in the neck, chest, abdomen, and pelvis as described above. Thank you for letting us participate in the care of this patient. For questions regarding this report, please contact e number below. ? Electronically signed by: Allan Coates [facility] ([phone]), at 10/04/2019 4:43 PM Narrative 10/04/2019 4:43 PM EDT EXAMINATION: NM PET CT SKULL BASE TO MID-THIGH ? CLINICAL HISTORY: Hematologic malignancy , grade 2 follicular lymphoma initial staging evaluation TECHNIQUE: Following IV injection of 18- dmpdlf-8-judtmkmdknza (FDG) a standard uptake of approximately 60 minutes, a no ncontrast CT scan followed by a PET scan were acquired from the base of the skull to mid thighs. The noncontrast CT was used for anatomic localization and photo n attenuation correction of the PET scan. Blood glucose level: 98 (mg/dL) FDG dose: 17.1 mCi Reference liver mean SUV is 2.9 COMPARISON: None FINDINGS: HEAD/NECK: Multiple FDG avid lymph nodes in the dolly ateral upper and lower cervical and supraclavicular regions and within the b ilateral parotids. CHEST: Extensive FDG avid adenopathy in the dolly ateral axillary, bilateral hilar, and bilateral mediastinal regions. No signif icant pulmonary nodules. ABDOMEN/PELVIS: Extensive FDG avid adenopathy in the abd ominal and pelvic retroperitoneum extending from the superior celiac axis to the bilateral external and internal iliac regions, and in the retrocrural an d bilateral inguinal regions. Additional small FDG avid adenopathy in the peripor pedro luis and abdominal mesenteric regions. Several small FDG avid perimuscular node s in the bilateral lower chest wall adjacent to the intercostal muscles (axi al image 136). Several small FDG avid perimuscular node s deep to the bilateral gluteus muscles (for example axial image 211 on the left side and axial image 198 on the right side). Incidental CT finding of a simple left r enal cyst. SKELETON/EXTREMITIES: Normal activity in all regions of the ax ial and visualized appendicular skeleton. Procedure Note Allan Coates MD - 10/04/2019Formatti ng of this note might be different from the original. EXAMINATION: NM PET CT SKULL BASE TO MID -THIGH CLINICAL HISTORY: Hematologic malignancy , grade 2 follicular lymphoma initial staging evaluation TECHNIQUE: Following IV injection of 18- nujrxo-4-mzhfaywdvigf (FDG) a standard uptake of approximately 60 minutes, a no ncontrast CT scan followed by a PET scan were acquired from the base of the skull to mid thighs. The noncontrast CT was used for anatomic localization and photo n attenuation correction of the PET scan. Blood glucose level: 98 (mg/dL) FDG dose: 17.1 mCi Reference liver mean SUV is 2.9 COMPARISON: None FINDINGS: HEAD/NECK: Multiple FDG avid lymph nodes in the dolly ateral upper and lower cervical and supraclavicular regions and within the b ilateral parotids. CHEST: Extensive FDG avid adenopathy in the dolly ateral axillary, bilateral hilar, and bilateral mediastinal regions. No signif icant pulmonary nodules. ABDOMEN/PELVIS: Extensive FDG avid adenopathy in the abd ominal and pelvic retroperitoneum extending from the superior celiac axis to the bilateral external and internal iliac regions, and in the retrocrural an d bilateral inguinal regions. Additional small FDG avid adenopathy in the peripor pedro luis and abdominal mesenteric regions. Several small FDG avid perimuscular node s in the bilateral lower chest wall adjacent to the intercostal muscles (axi al image 136). Several small FDG avid perimuscular node s deep to the bilateral gluteus muscles (for example axial image 211 on the left side and axial image 198 on the right side). Incidental CT finding of a simple left r enal cyst. SKELETON/EXTREMITIES: Normal activity in all regions of the ax ial and visualized appendicular skeleton. IMPRESSION Extensive neva involvement by lymphoma in the neck, chest, abdomen, and pelvis as described above. Thank you for letting us participate in the care of this patient. For questions regarding this report, please contact e number below. Electronically signed by: Allan Coates [facility] ([phone]), at 10/04/2019 4:43 PM Bina Monique MD IMG PET ORDERABLES ECHOCARDIOGRAM COMPLETE (10/04/2019 1:40 PM EDT) P athologist Signature EF 67 HEARTLAB SYSTEM Anatomical Region Laterality Modality Other Specimen (Source) Anatomical Location Collection Method / Collectio n Time Received Time / Laterality Volume 10/04/2019 Narrative 10/04/2019 1:57 PM EDT Procedure: ?Transthoracic Echocardiogram Patient: ?SHAMAR FRANCISCO C ?(Age): 1950(69y) Med Rec#: ? [id number] ?Sex: ?F ? Site Loc: ? [facility] ?Ht / Wt: ??160(cm)/89(kg) Pt. Loc: ?Echo Lab ?BSA: ?1.92 Study Date: ?? 10/04/2019 ?Pt. Type: Outpatient Tape: ? Referring: ELKIN Reading: David Aguilar ([id number]) Infusion Rn: Evangelista Gutierrez [facility] Diagnosis: *Other specified types of non-Hodgkin l ymphoma, unspecified site (C85.80) BP: ? 139/62 SUMMARY: 1. The left ventricular chamber size is normal. Moderate concentric left ventricular hypertrophy is observed. The re is no evidence of LVOT obstruction. There is normal global left ventricular systolic function. The quantitative left ventricular ejecti on fraction by biplane Duncan's method is 67%, global longitudinal peak systolic strain (GLS) -19.2% (Jerald Epiq). There are no left ventri cular segmental wall motion abnormalities. 2. The left atrium is normal in size. 3. The right ventricle is normal in size . Right ventricular global systolic function is normal. Pulmonary a rtery hypertension could not be assessed due to inadequate tricuspid reg urgitation jet. 4. Mild (1+/4+) aortic valve regurgitati on is present. Findings ? : Study Quality: ? Adequate Left Ventricle: ? The left ventricul ar chamber size is normal. ?Moderate concentric left ventricul ar hypertrophy is observed. ?There is no evidence of LVOT obstr uction. ?No ventricular septal defect is vi sualized. ?There is normal global left ventri cular systolic function.GLS -19.2% on Jerald Epiq. ?The quantitative left ventricular ejection fraction by biplane Duncan's method is 67%. ?There are no left ventricular segm ental wall motion abnormalities. ?The left ventricular diastolic suzanna ling pattern is consistent with impaired LV relaxation. ?Doppler assessment is consistent w ith normal left sided filling pressure. Left Atrium: ? The left atrium is no rmal in size. Right Ventricle: ? The right ventric le is normal in size. ?Right ventricular global systolic function is normal. ?Pulmonary artery hypertension coul d not be assessed due to inadequate tricuspid regurgitation jet. Right Atrium: ? The right atrium jn ears normal. Aortic Valve: ? The aortic valve is tricuspid. ?The aortic valve leaflets are mild ly thickened. ?Systolic excursion of the aortic v alve is normal. ?There is aortic annular calcificat ion. ?There is no evidence of aortic jessenia ve stenosis. ?Mild (1+/4+) aortic valve regurgit ation is present. Mitral Valve: ? The mitral valve aliyah flets appear normal. ?There is posterior mitral annular calcification. ?There is no evidence of mitral nino nosis. ?There is trace mitral regurgitatio n present. Tricuspid Valve: ? The tricuspid jessenia ve appears normal in structure and function. ?There is trace tricuspid regurgita tion present. Pulmonic Valve: ? The pulmonic valve is not well visualized. ?The pulmonic valve is probably nor mal. Pericardium: ? The pericardium appea rs normal and there is no evidence of a pericardial effusion. ?A pericardial fat pad is visualize d. Aorta: ? The aortic root is normal i n size. ?There is mild dilatation of the as cending aorta.3.6 cm Pulmonary Artery: ? The main pulmona ry artery is not well visualized. Venous: ? The inferior vena cava jn ears dilated. ?There is a greater than 50% respir atory change in the inferior vena cava dimension. Misc: ? Two-dimensional echo, spectr al Doppler and color Doppler performed. ?Myocardial Strain Imaging Chambers 2D ?Value ?Units (Range) ? IVSd (2D) ? 1.58 ? cm ? LVPWd (2D) ?1.29 ? cm ? IVS:LVPW ratio (2D) 1.22 ? ratio ? RWT (2D) ?0.58 ? ratio ? RWT PW (2D) ? 0.53 ? ratio ? LVIDd (2D) ?4.91 ? cm ? LVIDs (2D) ?2.73 ? cm ? LVIDd (2D) index ?2.56 ? cm/m2 ? LVIDs (2D) index ?1.42 ? cm/m2 ? LV FS (2D) ?44.4 ? % ? Ao root diameter (2D3.3 ?cm (2.1 - 3.6) ? Ascending Ao ?3.6 ?cm (2 - 3.5) ? Volumes/Mass ?Value ?Units (Range) ? LA Area 4 CH ?24 ? cm2 (<21) ? RA AREA 4CH ? 15 ? cm2 ? LA ESV BP (MOD) inde42.7 ? ml/m2 ? LV ESV SP 4CH (MOD) 27.4 ? ml ? LV ESV SP 2CH (MOD) 22.6 ? ml ? LV EDV BP ? 77.6 ? ml ? LV ESV BP ? 25.3 ? ml ? LV EDV BP index ? 40.46 ?ml/m2 ? LV ESV BP index ? 13.19 ?ml/m2 ? BP EF (MOD) ? 67.4 ? % ? LV mass (2D) ?293.91 ? g ? LV mass (2D) index ??153.24 ? g/m2 ? Diastolic/Systolic Function ?Value ?Units (Range) ? MV E-wave Vmax ?0.72 ? m/sec ? MV deceleration [id number] ?msec ? MV A-wave Vmax ?1.02 ? m/sec ? MV E:A ratio ?0.7 ?ratio ? LV septal e' Vmax ?? 0.06 ? m/sec ? LV lateral e' Vmax ??0.08 ? m/sec ? LV average e' Vmax ??0.07 ? m/sec ? LV E:e' septal ratio11.97 ? ratio ? LV E:e' lateral rati8.98 ? ratio ? LV average E:e' rati10.26 ? ratio ? Aortic Valve ?Value ?Units (Range) ? AR PHT ?953 ?msec ? AR peak gradient ?70 ? mmHg ? Pulmonic Valve/Qp:Qs ?Value ?Units (Range) ? MI end-diastolic Vma0.89 ? m/sec ? Wall Motion: Segment Name ?Rest ? Base-Anteroseptal ?? Normal ? Base-Anterior ? Normal ? Base-Anterolateral ??Normal ? Base-Posterolateral Normal ? Base-Inferior ? Normal ? Base-Inferoseptal ?? Normal ? Mid-Anteroseptal ?Normal ? Mid-Anterior ?Normal ? Mid-Anterolateral ?? Normal ? Mid-Posterolateral ??Normal ? Mid-Inferior ?Normal ? Mid-Inferoseptal ?Normal ? [place]-Septal ? Normal ? [place]-Anterior ? Normal ? [place]-Lateral ?Normal ? [place]-Inferior ? Normal ? [place]-Tip ?Normal ? This report has been electronically sign ed by: _ David Aguilar MD ? 10/04/2019 13:56 :59 Images reviewed and interpretation verif ied [facility] Cardiac Ultrasound Laboratory Procedure Note David Aguilar MD - 10/04/2019Formattin g of this note might be different from the original. Procedure: Transthoracic Echocardiogram Patient: SHAMAR Gonzalez DOB(Age): [birth year](69y) Med Rec#: [id number] Sex: F Site Loc: [place] Ht / Wt: 160(cm)/89(kg) Pt. Loc: Echo Lab BSA: 1.92 Study Date: 10/04/2019 Pt. Type: Outpati ent Tape: Referring: ELKIN Reading: David Aguilar ([id number]) Infusion Rn: Evangelista Gutierrez, [facility] Diagnosis: *Other specified types of non-Hodgkin l ymphoma, unspecified site (C85.80) BP: 139/62 SUMMARY: 1. The left ventricular chamber size is normal. Moderate concentric left ventricular hypertrophy is observed. The re is no evidence of LVOT obstruction. There is normal global left ventricular systolic function. The quantitative left ventricular ejecti on fraction by biplane Duncan's method is 67%, global longitudinal peak systolic strain (GLS) -19.2% (Jerald Epiq). There are no left ventri cular segmental wall motion abnormalities. 2. The left atrium is normal in size. 3. The right ventricle is normal in size . Right ventricular global systolic function is normal. Pulmonary a rtery hypertension could not be assessed due to inadequate tricuspid reg urgitation jet. 4. Mild (1+/4+) aortic valve regurgitati on is present. Findings : Study Quality: Adequate Left Ventricle: The left ventricular kody mber size is normal. Moderate concentric left ventricular hy pertrophy is observed. There is no evidence of LVOT obstructio n. No ventricular septal defect is visuali zed. There is normal global left ventricular systolic function.GLS -19.2% on Jerald Epiq. The quantitative left ventricular eject ion fraction by biplane Duncan's method is 67%. There are no left ventricular segmental wall motion abnormalities. The left ventricular diastolic filling pattern is consistent with impaired LV relaxation. Doppler assessment is consistent with n ormal left sided filling pressure. Left Atrium: The left atrium is normal i n size. Right Ventricle: The right ventricle is normal in size. Right ventricular global systolic funct ion is normal. Pulmonary artery hypertension could not be assessed due to inadequate tricuspid regurgitation jet. Right Atrium: The right atrium appears n ormal. Aortic Valve: The aortic valve is tricus pid. The aortic valve leaflets are mildly th ickened. Systolic excursion of the aortic valve is normal. There is aortic annular calcification. There is no evidence of aortic valve st enosis. Mild (1+/4+) aortic valve regurgitation is present. Mitral Valve: The mitral valve leaflets appear normal. There is posterior mitral annular calci fication. There is no evidence of mitral stenosis . There is trace mitral regurgitation pre sent. Tricuspid Valve: The tricuspid valve jn ears normal in structure and function. There is trace tricuspid regurgitation present. Pulmonic Valve: The pulmonic valve is no t well visualized. The pulmonic valve is probably normal. Pericardium: The pericardium appears nor mal and there is no evidence of a pericardial effusion. A pericardial fat pad is visualized. Aorta: The aortic root is normal in size . There is mild dilatation of the ascendi ng aorta.3.6 cm Pulmonary Artery: The main pulmonary art benita is not well visualized. Venous: The inferior vena cava appears d ilated. There is a greater than 50% respiratory change in the inferior vena cava dimension. Misc: Two-dimensional echo, spectral Dop pler and color Doppler performed. Myocardial Strain Imaging Chambers 2D Value Units (Range) IVSd (2D) 1.58 cm LVPWd (2D) 1.29 cm IVS:LVPW ratio (2D) 1.22 ratio RWT (2D) 0.58 ratio RWT PW (2D) 0.53 ratio LVIDd (2D) 4.91 cm LVIDs (2D) 2.73 cm LVIDd (2D) index 2.56 cm/m2 LVIDs (2D) index 1.42 cm/m2 LV FS (2D) 44.4 % Ao root diameter (2D3.3 cm (2.1 - 3.6) Ascending Ao 3.6 cm (2 - 3.5) Volumes/Mass Value Units (Range) LA Area 4 CH 24 cm2 (<21) RA AREA 4CH 15 cm2 LA ESV BP (MOD) inde42.7 ml/m2 LV ESV SP 4CH (MOD) 27.4 ml LV ESV SP 2CH (MOD) 22.6 ml LV EDV BP 77.6 ml LV ESV BP 25.3 ml LV EDV BP index 40.46 ml/m2 LV ESV BP index 13.19 ml/m2 BP EF (MOD) 67.4 % LV mass (2D) 293.91 g LV mass (2D) index 153.24 g/m2 Diastolic/Systolic Function Value Units (Range) MV E-wave Vmax 0.72 m/sec MV deceleration [id number] msec MV A-wave Vmax 1.02 m/sec MV E:A ratio 0.7 ratio LV septal e' Vmax 0.06 m/sec LV lateral e' Vmax 0.08 m/sec LV average e' Vmax 0.07 m/sec LV E:e' septal ratio11.97 ratio LV E:e' lateral rati8.98 ratio LV average E:e' rati10.26 ratio Aortic Valve Value Units (Range) AR PHT 953 msec AR peak gradient 70 mmHg Pulmonic Valve/Qp:Qs Value Units (Range) MI end-diastolic Vma0.89 m/sec Wall Motion: Segment Name Rest Base-Anteroseptal Normal Base-Anterior Normal Base-Anterolateral Normal Base-Posterolateral Normal Base-Inferior Normal Base-Inferoseptal Normal Mid-Anteroseptal Normal Mid-Anterior Normal Mid-Anterolateral Normal Mid-Posterolateral Normal Mid-Inferior Normal Mid-Inferoseptal Normal [place]-Septal Normal [place]-Anterior Normal [place]-Lateral Normal [place]-Inferior Normal [place]-Tip Normal This report has been electronically sign ed by: _ David Aguilar MD 10/04/2019 13:56:59 Images reviewed and interpretation verif ied [facility] Cardiac Ultrasound Laboratory Bina Monique MD ECHO ORDERABLES HIV Screen, 4th Generation ([place]/CGP/APD) (09/18/2019 10:54 AM EDT) Analysis Performed At [facility] Signature HIV-1/2 Ab and Negative Negative [facility] LABORATORY Comment: This 4th Generation HIV test screens for the presence of the HIV-1 p24 antigen as well as antibodies reactive against H IV-1 and HIV-2. A negative screen does not rule out an acute HIV infection. If acute HIV infection is suspected, testing should be repeated in 2 - 3 week s or HIV nucleic acid testing performed. Specimen Anatomical Collection Method Collection Time Receive d Time (Source) Location / / Volume Laterality Blood specimen 09/18/2019 10:54 0 (specimen) AM EDT 11:41 AM EDT Resulting Agency Comment Spec In Lab Bian Monique MD IMMUNOLOGY ORDERABLES Performing Organization Address City/[facility]/ZIP [place] [address] Hepatitis C Antibody (09/18/2019 10:54 AM EDT) Analysis Performed At Path logist [place] Signature Hepatitis C Ab Negative Negative [facility] LABORATORY Specimen Anatomical Collection Method Collection Time Receive d Time (Source) Location / / Volume Laterality Blood specimen 09/18/2019 10:54 0 (specimen) AM EDT 11:41 AM EDT Resulting Agency Comment Spec In Lab Bina Monique MD IMMUNOLOGY ORDERABLES Performing Organization Address City/[facility]/ZIP [place] [address] Hepatitis B Surface Antigen (09/18/2019 10:54 AM EDT) Analysis Performed At Patho logist Time Signature HepB Surface Negative Negative [facility] LABORATORY Specimen Anatomical Collection Method Collection Time Receive d Time (Source) Location / / Volume Laterality Blood specimen 09/18/2019 10:54 0 (specimen) AM EDT 11:41 AM EDT Resulting Agency Comment Spec In Lab Bina Monique MD CHEMISTRY ORDERABLES Performing Organization Address City/[facility] Phon e Number [address] Hepatitis B Surface Antibody (09/18/2019 10:54 AM EDT) P athologist Signature HepB Surface 3.6 IU/L [facility] LABORATORY Comment: HepB Surface Ab Quant: Unvaccinated: < 8.5 IU/L Vaccinated: > 11.5 IU/L HepB Surface Ab Negative [facility] LABORATORY Comment: Patient is presumed to be not vaccinated or immune to HBV infection. Expected Results: Vaccinated: Positive Unvaccinated: Negative Specimen Anatomical Collection Method Collection Time Receive d Time (Source) Location / / Volume Laterality Blood specimen 09/18/2019 10:54 0 (specimen) AM EDT 11:41 AM EDT Resulting Agency Comment Spec In Lab Bina Monique MD IMMUNOLOGY ORDERABLES Performing Organization Address City/[facility] Code Phon e Number [address] Hepatitis B Core Antibody, Total (09/18/2019 10:54 AM EDT) Analysis Performed At Patho logist Time Signature Hep B Core Ab Negative Negative [facility] LABORATORY Specimen Anatomical Collection Method Collection Time Receive d Time (Source) Location / / Volume Laterality Blood specimen 09/18/2019 10:54 0 (specimen) AM EDT 11:41 AM EDT Resulting Agency Comment Spec In Lab Bina Monique MD CHEMISTRY ORDERABLES Performing Organization Address City/[facility]/ZIP Code Phon e Number [address] Uric acid (09/18/2019 10:54 AM EDT) athologist Signature Uric Acid 4.2 2.5 - 6.[address] [facility] mg/dL [facility] LABORATORY Specimen Anatomical Collection Method Collection Time Receive d Time (Source) Location / / Volume Laterality Blood specimen 09/18/2019 10:54 0 (specimen) AM EDT 11:18 AM EDT Resulting Agency Comment Spec In Lab Bina Monique MD CHEMISTRY ORDERABLES Performing Organization Address City/[facility]/ZIP Code Phon e Number [address] (ABNORMAL) Immunoglobulins, Quantitative (09/18/2019 10:54 AM EDT) athologist Signature IgG 563 (L) 700 - 1,600 [facility] mg/dL [facility] LABORATORY Comment: Pediatric Reference Intervals obtained f rom the Caliper Reference Interval project. http://www.[employer].ca/caliperp roject/index.html IgA 43 (L) 70 - 400 mg/dL [facility] LABORATORY Comment: rechecked-ds IgM 31 (L) 40 - 230 mg/dL [facility] LABORATORY Specimen Anatomical Collection Method Collection Time Receive d Time (Source) Location / / Volume Laterality Blood specimen 09/18/2019 10:54 0 (specimen) AM EDT 11:41 AM EDT Resulting Agency Comment Spec In Lab Bina Monique MD CHEMISTRY ORDERABLES Performing Organization Address City/State/ZIP Code Phon e Number [address] Lactate Dehydrogenase (09/18/2019 10:54 AM EDT) athologist Signature LDH 184 110 - 220 [facility] unit/L [facility] LABORATORY Specimen Anatomical Collection Method Collection Time Receive d Time (Source) Location / / Volume Laterality Blood specimen 09/18/2019 10:54 0 (specimen) AM EDT 11:18 AM EDT Resulting Agency Comment Spec In Lab Bina Monique MD CHEMISTRY ORDERABLES Performing Organization Address City/State/[place] [address] (ABNORMAL) Comprehensive metabolic panel (non-fasting) (09/18/2019 10:54 AM EDT) P athologist Signature Glucose Lvl 110 65 - 199 [facility] mg/dL [facility] LABORATORY Comment: Diabetes: >=200 mg/dL plus symp toms BUN 16 8 - 18 mg/dL [facility] LABORATORY Creatinine 0.73 0.70 - 1.20 mg/dL [facility] LABORATORY Sodium 133 (L) 135 - 145 mmol/L [facility] LABORATORY Potassium 3.7 3.5 - 5.0 mmol/L [facility] LABORATORY Comment: Please note: ??Patients with WBC >100,00 0 may have falsely elevated Potassium levels. ??For accurate Potassium quantif ication in these patients send serum separator tube (gold top) for subsequent determinations. ??Contact the Clinical Chemistry Laboratory if there are any qu estions. Chloride 98 98 - 107 mmol/L [facility] LABORATORY CO2 23 22 - 31 mmol/L [facility] Anion Gap 12 5 - 15 mmol/L [facility] LABORATORY Calcium 9.4 8.5 - 10.5 mg/dL [facility] LABORATORY Total Protein 6.7 6.1 - 8.0 gm/dL [facility] LABORATORY Albumin 4.1 3.2 - 5.2 gm/dL [facility]OR[facility] AST 16 0 - 30 unit/L [facility] LAB[facility] ALT 12 0 - 30 unit/L [facility] Alk Phos 86 35 - 105 unit/L [facility] Total Bilirubin 0.5 0.2 - 1.3 mg/dL [facility] LABOR[facility]ORY Estimated GFR 83 >=60 mL/min/1.73 m?? [facility] LABOR[facility]ORY Comment: The eGFR was calculated using the CKD-EP I equation. As with all creatinine based estimates of kidney function, eGFR values calculated with the CKD-EPI equation are not accurate in patients wi th acute kidney failure, extremes of body mass or the acutely ill. http://[employer]/DHnkf eGFR 96 >=60 mL/min/1.73 m?? [facility] LABORATORY Comment: The eGFR was calculated using the CKD-EP I equation. As with all creatinine based estimates of kidney function, eGFR values calculated with the CKD-EPI equation are not accurate in patients wi th acute kidney failure, extremes of body mass or the acutely ill. http://[employer]/MUSCOGEEnkf Specimen Anatomical Collection Method Collection Time Receive d Time (Source) Location / / Volume Laterality Blood specimen 09/18/2019 10:54 0 (specimen) AM EDT 11:18 AM EDT Resulting Agency Comment Spec In Lab Bina Monique MD CHEMISTRY ORDERABLES Performing Organization Address City/State/ZIP [place] [address] documented in this encounter Visit Diagnoses Diagnosis Malignant lymphoma, undifferentiated rosalina l, non-Burkitt's Other malignant lymphomas, unspecified s ite, extranodal and solid organ sites Malignant lymphoma, undifferentiated rosalina l, non-Burkitt's Other malignant lymphomas, unspecified s ite, extranodal and solid organ sites Malignant lymphoma, undifferentiated rosalina l, non-Burkitt's Other malignant lymphomas, unspecified s ite, extranodal and solid organ sites documented in this encounter Care Teams Alarm Field Technician Relationship Specialty Start Date End Date Jared Anna MD PCP - General 06/02/10 02/08/21 documented as of this encounter
--- OUTSIDE RECORDS SUMMARY | 2022-05-21 01:04 | XMS_ITS | Encounter Summary ---
:1950 Author Organization [facility] Address [place] [address] Care Team Providers Name Role Phone Jared Anna MD Primary Care Provider Reason for Visit Diagnostic Test (Routine) - Closed Specialty Diagnoses / Procedures Referred By Contact Refer red To Contact Radiology Diagnoses Malignant lymphoma, undifferentiated cell, non-Burkitt's Bina Monique [facility] Rad Nuclear Med Procedures NM PET CT Skull Base to Mid-thigh [facility] HEMATOLOGY/[place] [address] [place] [address] Referral ID Status Reason Start Date Expiration Date Visits V isits Requested Authorized [id number] Closed Specialty 09/17/2019 03/19/2021 1 1 Service Requested Encounter Details Date Type Department Care Team Description 10/04/2019 Hospital Encounter Nuclear Medicine at Barbara Monique MD [facility] ENTER [facility] HEMATOLOGY/[place] [address] DEPT. [phone] [place], [place] [address] (Wo rk) Social History Tobacco Use Types Packs/Day Years Used Date Former Smoker Quit: 1989 Smokeless Tobacco: Never Used Sex Assigned at Date Recorded Not on file documented as of this encounter Medications at Time of Discharge Medication Sig Dispensed Refills Start Date End Date atorvastatin (Lipitor) 10 mg 10 mg daily. 0 09/07 Tablet levothyroxine (Synthroid) 75 Take 75 mcg by 0 mcg Tablet mouth daily. venlafaxine XR (Effexor-XR) Take 37.5 mg by 0 37.5 mg Capsule, Sust. Release mouth daily. 24 hr cholecalciferol, Vitamin D3, Take 50 Units 0 50 mcg (2,000 unit) Tablet by mouth daily. DILTiazem HCl 240 mg Tablet [...] Visit Hematology and Oncology Jackie Dillon, ASSISTANT DESIGNER [facility] ER HEMATOLOGY/ONCOL [facility] [place] [place] [address] (Wo rk) 06/16/2022 Infusion Hematology and Oncology documented as of this encounter Procedures Procedure Name Priority Date/Time Associated Diagnosis Comme nts NM PET CT SKULL Routine 10/04/2019 3:48 Malignant lymphoma, Re sults for this BASE TO MID-THIGH PM EDT undifferentiated cell, procedure are in ([facility]) non-Burkitt's the results section. POCT GLUCOSE Routine 10/04/2019 2:32 Results for this PM EDT procedure are i n the results section. documented in this encounter Results POCT Glucose (10/04/2019 2:32 PM EDT) P athologist Signature POC Glucose 98 65 - 199 [facility] mg/dL [facility] LABORATORY Comment: Supplemental ranges: <140 mg/dL before meals <180 mg/dL all other times of the day Specimen Anatomical Collection Method Collection Time Receive d Time (Source) Location / / Volume Laterality Blood specimen 10/04/2019 2:32 PM 020 2:32 (specimen) EDT PM EDT Bina Monique MD POINT OF CARE TEST ORDERABLE S Performing Organization Address City/State/[place] [address] documented in this encounter Visit Diagnoses Not on filedocumented in this encounter Care Teams Grants Manager Relationship Specialty Start Date End Date Jared Anna MD PCP - General 06/02/10 02/08/21 documented as of this encounter
--- OUTSIDE RECORDS SUMMARY | 2022-05-21 01:04 | XMS_ITS | Encounter Summary ---
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 [address] [place] [address] Referral ID Status Reason Start Date Expiration Date Visits V isits Requested Authorized [id number] Closed Specialty 01/09/2020 07/11/2021 1 1 Service Requested Encounter Details Date Type Department Care Team Description 01/09/2020 Office Visit Hematology/Oncology Bina Monique rade 2 follicular at [facility] MD Luis lymphoma of lymph [address] nodes of multiple [place], [place] [facility] [id number] HEMATOLOGY/ONCOLOGY [phone] DEPT. [place], [place] [address] (Wo rk) Social History Tobacco Use Types Packs/Day Years Used Date Former Smoker Quit: 1989 Smokeless Tobacco: Never Used Sex Assigned at Date Recorded Not on file documented as of this encounter Last Filed Vital Signs Vital Sign Reading Time Taken Comments Blood Pressure 166/67 01/09/2020 12:55 PM EDT Pulse 71 01/09/2020 12:55 PM EDT Temperature 36.5 ??C (97.7 ??F) 01/09/2020 12:55 PM EDT Respiratory Rate 16 01/09/2020 12:55 PM EDT Oxygen Saturation 99% 01/09/2020 12:55 PM EDT Inhaled Oxygen Concentration - - Weight 89.8 kg (198 lb) 01/09/2020 12:55 PM EDT Height 159 cm (5' 2.6) 01/09/2020 12:55 PM EDT Body Mass Index 35.53 01/09/2020 12:55 PM EDT documented in this encounter Progress Notes Bina Monique MD - 01/09/2020 1:00 PM EDT Hematology Clinic [facility] [address] HEMATOLOGY PATIENT EVALUATION Patient Active Problem List Diagnosis ??? 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 Biopsy at [place]. 09/06/19 LN Interpretation at [facility] Outside slide(s) labeled [id number], collection date 09/06/2019. Lymph node, supra clavicular [...] epidemic. ??? Hypertension ??? Hypothyroidism ??? Hypercholesterolemia HISTORY OF PRESENT ILLNESS: Patient prefers to be called: Brian Support person(s) : Geovanny; son, Ben. Brian Ibanez is a 69 y.o. year old female being seen for evaluation of newly diagnosed lymphoma. sheis referred in consultaion from Dr. Jared Jones, at [facility] for follicular lymphoma. It was a delight to see Brian back in clinic today. Brian states that she continues to feel quite well. The fatigue she reported last time I met her has improved. 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 This is been a difficult time for all of us as we senior living in place to combat the coronavirus. She has had no recent night sweats. She has had no unintentional weight loss. No signs or symptoms of an infection. She notes waxing and waning LN in neck axilla and groin. She reports skinnier stools and better w/ metmucil. She states last colo was w/in 5 [address]rs w/ Dr Carcamo. Looking on PET I doubt the lymphoma would be causing this but will follow closely. Son and fely are here from [place], quarantining. COVID neg X 2 so far. PMHX: Hypertension Hyperlipidemia Hypothyroidism Anxiety - nicely [...] Outpatient Medications Marked as Taking for the 01/09/20 encounter (Office Visit) with Bina Monique MD Medication Sig Dispense Refill ??? UNABLE TO FIND Quill oil daily ??? atorvastatin (Lipitor) 10 mg [...] HISTORY Personal: to [employer]. 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 Lives in [place]. 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 Loves to cook and read and shop with friends and visit son. One son, Skyler, 36 yo in [place]. He is engaged! She did the [employer] Plunge for [employer] at [employer]. Aug 2019! 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 Body surface area is 1.99 meters squared. GENERAL: Brian Ibanez appears well [...] previous visit (from the past 72 hour(s)). Results for BRIAN IBANEZ ( ) as of 01/09/2020 13:26 Ref. Range 01/02/2020 00:00 WBC Unknown 5.8 Hemoglobin Unknown 11.9 Hematocrit Unknown 35.0 Platelets Unknown 169 Neutr Abs (ANC) Unknown 2.6 Creatinine Unknown 0.71 PATHOLOGY: 09/06/19 LN Interpretation at [facility] Outside slide(s) labeled [id number], collection date 09/06/2019. Lymph node, supra clavicular [...] CD19+/Cd20+/CD10 positive kappa restricted B cell population. [facility] Path 09/06/19 Path report in care everywhere. Reports follicular lymphoma grade 1-2. Immunoperoxidase stains were performed on this case to further characterize the lesion. ANTIBODY(CLONE)(BLOCK):RESULT CD3 (SP7, Thermo Scientific) (A3): Highlights background T-cells PAX-5 (1EW, Leica) (A3): Highlights neoplastic cells BCL-2 Oncoprotein (124, Cole) (A3): Positive in neoplastic cells Ki67 (MIB-1) [...] PET CT SKULL BASE TO MID-THIGH ?? CLINICAL HISTORY: Hematologic malignancy, grade 2 follicular lymphoma initial staging evaluation ? HEAD/NECK: Multiple FDG avid lymph nodes in the bilateral upper and lower cervical and supraclavicular regions and within the bilateral parotids. ?? CHEST: Extensive FDG avid adenopathy in the bilateral axillary, bilateral hilar, and bilateral mediastinal regions. No significant pulmonary nodules. ?? ABDOMEN/PELVIS: Extensive FDG avid adenopathy in the abdominal and pelvic retroperitoneum extending from the superior celiac axis to the bilateral external and internal iliac regions, and in the retrocrural and bilateral inguinal regions. Additional small FDG avid adenopathy in the periportal and abdominal mesenteric regions. Several small FDG avid perimuscular nodes in the bilateral lower chest wall adjacent to the intercostal muscles (axial image 136). Several small FDG avid perimuscular nodes deep to the bilateral gluteus muscles (for example axial image 211 on the left side and axial image 198 on the right side). Incidental CT finding of a simple left renal cyst. ?? SKELETON/EXTREMITIES: Normal activity in all regions of the axial and visualized appendicular skeleton. ?? IMPRESSION Extensive neva involvement by lymphoma in the neck, chest, abdomen, and pelvis as described above. ASSESSMENT/PLAN: Brian Ibanez is a very pleasant 69 y.o. female [...] normal LDH. Given that she does have some grade 3A disease, I might consider treating her with bendamustine and rituximab followed by maintenance Rituxan. Treatment was not initially pursued given shankar epidemic. I asked her to call us if she notes any of her lymph nodes increasing in size, and persisting. I usually worry if they are larger than a walnut. I would also worry if 1 were growing much faster than others. In addition she should call if she develops persistent night sweats or unintentional weight loss. I explained, that follicular lymphoma can wax and wane and sometimes patients will have an increase in adenopathy or B symptoms for couple weeks and then subside. She can always call us, but I would only become concerned if the symptoms persist for more than 1 to 2 weeks. I will plan to see her back in [facility] in 6-8 weeks with CBC, CMP, and LDH and a provider appointment. I would like a CT N, CAP at [facility] with indicator site and comparison to PET to better pace theprogression of her disease. Plan: ?? RTC in 6-[address] [facility] ?? Cbc, cmp, ldh ?? CT N, CAP at [facility] a week before appt I discussed all of the above with the patient and all of her questions were answered. Support and counseling given as appropriate. This note was written or modified using [employer] voice recognition software. The final note was screened for mistakes. Please excuse any remaining errors. total time: time in counselling: Copy Jared Anna MD documented in this encounter Plan of Treatment Upcoming Encounters Date Type Specialty Care Team Description 06/16/2022 Office Visit Hematology and Oncology Jackie Dillon, [facility] HEMATOLOGY/ONCOL [place] DEPT. [place], [place] [address] (Wo rk) 06/16/2022 Infusion Hematology and Oncology documented as of this encounter Procedures Procedure Name Priority Date/Time Associated Diagnosis Comme nts CT NECK SOFT TISSUE Routine 02/11/2020 2:06 PM Grade 2 follicu lar Results for this W CONTRAST EDT lymphoma of lymph procedure are in nodes of multiple the result s regions section. CBC (WITH DIFF) Routine 01/02/2020 Results for this procedure are i n the results section. documented in this encounter Results CT Chest Abdomen Pelvis w Contrast (Generic) (02/11/2020 2:06 PM EDT) Anatomical Region Laterality Modality Abdomen, Pelvis Computed Tomography Specimen (Source) Anatomical Location Collection Method / Collectio n Time Received Time / Laterality Volume Impressions 02/11/2020 5:09 PM EDT Numerous enlarged thoracic, abdominal and pelvic lymph nodes. Many of these appear increased in size compared with t he PET/CT from 10/04/19. I have personally reviewed the image(s) and the resident's interpretation and agree with the findings, Uri Mccray r at 02/11/2020 5:09 PM Thank you for letting us participate in the care of this patient. For questions regarding this report, please contact devang number below. ? Electronically signed by: Uri metcalf, [facility] ([phone]), at 02/11/2020 5:09 PM Narrative 02/11/2020 5:09 PM EDT EXAMINATION: CT CHEST ABDOMEN PELVIS W CONTRAST (GENERIC) CLINICAL HISTORY: Hematologic malignancy , surveillance h/o lymphoma; ??surveillance compare to PET with indicator sites. TECHNIQUE: Helical CT of the chest, abdo men, and pelvis was performed following the intravenous administration of contra st. Administered 105.0 ml of OMNIPAQUE 350.00 mg/ml. Oral contrast was administ ered. COMPARISON: PET CT 10/04/19 FINDINGS: Chest: Lungs and large airways: No new or enlar ging pulmonary nodules. Pleura: No pleural effusions. Heart/vasculature: Normal cardiac size. No thoracic aortic aneurysm. Lymph nodes/Mediastinum/Jared: Enlarged l ymph nodes throughout bilateral axillae, supraclavicular regions, mediastinum, an d jared. Some of these have enlarged since the previous PET/CT, for example i ndicator lesion #1 has increased from 16 x 24 mm to 20 x 28 mm. Abdomen/pelvis: Liver: Normal size and attenuation. No l esions. Bile ducts: Nondilated. Gallbladder: No calcified gallstones. No rmal caliber wall. Pancreas: Normal attenuation without blessing pedro luis dilatation. Spleen: Normal. 11 cm maximum craniocaud al dimension. Adrenals: Normal. Kidneys: Left renal simple cysts measuri ng 2.4 cm and 1.3 cm. No suspicious lesions or hydronephrosis. Urinary Bladder: Normal. Vasculature: No aneurysm. Lymph Nodes: ??Numerous enlarged mostly retroperitoneal and pelvic lymph nodes. The largest are listed as indicator site s below. Many of these have increased in size. Short axis dimensions of the large st pelvic sidewall lymph nodes have increased from 22 mm to 28 mm on the rig ht and from 24 mm to 28 mm on the left. Bowel: Contrast reaches the rectum and o pacifies the appendix. No obstruction or bowel wall thickening. Peritoneum and mesentery: No fluid colle ctions or pneumoperitoneum. Abdominal wall: Small fat-containing umb ilical hernia. Reproductive organs: Normal. Osseous structures: No suspicious lesion s. The following indicator lesions were ludin sured using RECIST 1.1 Criteria: Prior study date: None Lesion #1: Right axillary ??Current study: Series 4, Image 17, 20 x 28 mm Lesion #2: Right perihilar ??Current study: Series 4, Image 44, 18 x 25 mm Lesion #3: Right common iliac ??Current study: Series 4, Image 125, 2 1 x 26 mm Lesion #4: Right pelvic sidewall ??Current study: Series 4, Image 142, 2 8 x 56 mm Lesion #5: Left pelvic sidewall ??Current study: Series 4, Image 139, 3 1 x 60 mm Procedure Note Uri Turpin MD - 02/11/2020Format ting of this note might be different from the original. EXAMINATION: CT CHEST ABDOMEN PELVIS W C ONTRAST (GENERIC) CLINICAL HISTORY: Hematologic malignancy , surveillance h/o lymphoma; surveillance compare to PE T with indicator sites. TECHNIQUE: Helical CT of the chest, abdo men, and pelvis was performed following the intravenous administration of contra st. Administered 105.0 ml of OMNIPAQUE 350.00 mg/ml. Oral contrast was administ ered. COMPARISON: PET CT 10/04/19 FINDINGS: Chest: Lungs and large airways: No new or enlar ging pulmonary nodules. Pleura: No pleural effusions. Heart/vasculature: Normal cardiac size. No thoracic aortic aneurysm. Lymph nodes/Mediastinum/Jared: Enlarged l ymph nodes throughout bilateral axillae, supraclavicular regions, mediastinum, an d jared. Some of these have enlarged since the previous PET/CT, for example i ndicator lesion #1 has increased from 16 x 24 mm to 20 x 28 mm. Abdomen/pelvis: Liver: Normal size and attenuation. No l esions. Bile ducts: Nondilated. Gallbladder: No calcified gallstones. No rmal caliber wall. Pancreas: Normal attenuation without blessing pedro luis dilatation. Spleen: Normal. 11 cm maximum craniocaud al dimension. Adrenals: Normal. Kidneys: Left renal simple cysts measuri ng 2.4 cm and 1.3 cm. No suspicious lesions or hydronephrosis. Urinary Bladder: Normal. Vasculature: No aneurysm. Lymph Nodes: Numerous enlarged mostly re troperitoneal and pelvic lymph nodes. The largest are listed as indicator site s below. Many of these have increased in size. Short axis dimensions of the large st pelvic sidewall lymph nodes have increased from 22 mm to 28 mm on the rig ht and from 24 mm to 28 mm on the left. Bowel: Contrast reaches the rectum and o pacifies the appendix. No obstruction or bowel wall thickening. Peritoneum and mesentery: No fluid colle ctions or pneumoperitoneum. Abdominal wall: Small fat-containing umb ilical hernia. Reproductive organs: Normal. Osseous structures: No suspicious lesion s. The following indicator lesions were ludin sured using RECIST 1.1 Criteria: Prior study date: None Lesion #1: Right axillary Current study: Series [...] 4, Image 139, 31 x 60 mm IMPRESSION Numerous enlarged thoracic, abdominal an d pelvic lymph nodes. Many of these appear increased in size compared with t he PET/CT from 10/04/19. I have personally reviewed the image(s) and the resident's interpretation and agree with the findings, Uri garsia at 02/11/2020 5:09 PM Thank you for letting us participate in the care of this patient. For questions regarding this report, please contact e number below. Bina Monique MD IMG CT ORDERABLES CT Neck Soft Tissue w Contrast (Generic) (02/11/2020 2:06 PM EDT) Anatomical Region Laterality Modality Neck, Head Computed Tomography Specimen (Source) Anatomical Location Collection Method / Collectio n Time Received Time / Laterality Volume Impressions 02/11/2020 5:08 PM EDT Interval progression of lymphadenopathy within the cervical region. I have personally reviewed the image(s) and the resident's interpretation and agree with the findings, Hermes Alfred MD at 02/11/2020 5:08 PM Thank you for letting us participate in the care of this patient. For questions regarding this report, please contact e number below. ? Electronically signed by: Hermes Alfred MD, [facility] ([phone]), at 02/11/2020 5:08 PM Narrative 02/11/2020 5:08 PM EDT EXAMINATION: CT NECK SOFT TISSUE W CONTRAST (GENERIC) CLINICAL HISTORY: Hematologic malignancy , surveillance h/o lymphoma; ??surveillance compare to PET with indicator sites. TECHNIQUE: CT neck performed after the intravenous administration of contrast. COMPARISON: Whole body PET CT performed on October 04, 2019 FINDINGS: In comparison to the prior PET/CT dated October 04, 2019 there has been interval progression in volume and multiplicity o f cervical lymphadenopathy. For example, Largest left parotid gland lymph node me asures approximately 1.4 cm, previously measuring 1 cm Largest right parotid gland lymph node m easures approximately 1.2 cm, previously measuring 1 cm Largest right cervical lymph node level 2A measures 1.9 x 1.5 cm, previously measuring 1 cm which is best seen on deonte ge 46 of series 5. Enlarged right cervical lymph node at le camron 3 measures 1.3 x 0.8 cm, previously measuring 0.9 x 0.8 cm which is best see n on image 31 of series 5 Largest left cervical lymph node at leve l 5A measures 1.4 x 1 cm, previously measuring 1.2 x 0.8 cm which is best see n on image 45 of series 5 Enlarged right cervical lymph node at [place] 5A measures 1.3 x 1.1 cm, previously measuring 0.9 x 0.6 cm which is best see n on image 49 of series 5. There is no nasopharyngeal, oropharyngea l, floor of mouth, laryngeal, or hypopharyngeal mass. The thyroid gland e nhances homogeneously. The paranasal sinuses, middle ear cavity, and mastoid air cells are well aerated. The visualized intracranial structures a ppear grossly normal. Carotid and vertebral arteries appear pa tent. The jugular venous systems are patent. Lung apices are clear. Procedure Note Hermes Saleem MD - 02/11/2020Formatt ing of this note might be different from the original. EXAMINATION: CT NECK SOFT TISSUE W CONTR AST (GENERIC) CLINICAL HISTORY: Hematologic malignancy , surveillance h/o lymphoma; surveillance compare to PE T with indicator sites. TECHNIQUE: CT neck performed after the intravenous administration of contrast. COMPARISON: Whole body PET CT performed on October 04, 2019 FINDINGS: In comparison to the prior PET/CT dated October 04, 2019 there has been interval progression in volume and multiplicity o f cervical lymphadenopathy. For example, Largest left parotid gland lymph node me asures approximately 1.4 cm, previously measuring 1 cm Largest right parotid gland lymph node m easures approximately 1.2 cm, previously measuring 1 cm Largest right cervical lymph node level 2A measures 1.9 x 1.5 cm, previously measuring 1 cm which is best seen on deonte ge 46 of series 5. Enlarged right cervical lymph node at [place] 3 measures 1.3 x 0.8 cm, previously measuring 0.9 x 0.8 cm which is best see n on image 31 of series 5 Largest left cervical lymph node at leve l 5A measures 1.4 x 1 cm, previously measuring 1.2 x 0.8 cm which is best see n on image 45 of series 5 Enlarged right cervical lymph node at [place] 5A measures 1.3 x 1.1 cm, previously measuring 0.9 x 0.6 cm which is best see n on image 49 of series 5. There is no nasopharyngeal, oropharyngea l, floor of mouth, laryngeal, or hypopharyngeal mass. The thyroid gland e nhances homogeneously. The paranasal sinuses, middle ear cavity, and mastoid air cells are well aerated. The visualized intracranial structures a ppear grossly normal. Carotid and vertebral arteries appear pa tent. The jugular venous systems are patent. Lung apices are clear. IMPRESSION Interval progression of lymphadenopathy within the cervical region. I have personally reviewed the image(s) and the resident's interpretation and agree with the findings, Hermes Alfred MD at 02/11/2020 5:08 PM Thank you for letting us participate in the care of this patient. For questions regarding this report, please contact th e number below. Bina Monique MD IMG CT ORDERABLES CBC (with Diff) (01/02/2020) P athologist Signature WBC 5.8 Hemoglobin 11.9 Hematocrit 35.0 Platelets 169 Neutr Abs (ANC) 2.6 Creatinine 0.71 Specimen (Source) Anatomical Location Collection Method / Collectio n Time Received Time / Laterality Volume Blood specimen 01/02/2020 (specimen) Historical Provider HEMATOLOGY ORDERABLES documented in this encounter Visit Diagnoses Diagnosis 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 documented in this encounter Care Teams Log Manager Relationship Specialty Start Date End Date Jared Anna MD PCP - General 06/02/10 02/08/21 documented as of this encounter
--- OUTSIDE RECORDS SUMMARY | 2022-05-21 01:04 | XMS_ITS | Encounter Summary ---
:1950 Author Organization [place] [address] Care Team Providers Name Role Phone Jared Anna MD Primary Care Provider Encounter Details Date Type Department Care Team Description 09/18/2019 Hospital Encounter Hematology and Maligna nt lymphoma, Oncology at [facility] undifferentiated cell, [facility] [place] [id number] Social History Tobacco Use Types Packs/Day Years [...] 06/16/2022 Office Visit Hematology and Oncology Jackie Diloln, FAMILY INTERVENTION SPECIALIST [facility] HEMATOLOGY/ONCOL SHADIA DEPT. [place], [place] [address] (Wo rk) 06/16/2022 Infusion Hematology and Oncology documented as of this encounter Procedures Procedure Name Priority Date/Time Associated Diagnosis Comme nts HC IGA, SERUM STAT 09/18/2019 10:54 Malignant lymphoma, Res ults for this AM EDT undifferentiated cell, proce dure are in non-Burkitt's the results section. HEMOGRAM STAT 09/18/2019 10:54 Malignant lymphoma, Resu lts for this AM EDT undifferentiated cell, proce dure are in non-Burkitt's the results section. DIFFERENTIAL, STAT 09/18/2019 10:54 Malignant lymphoma, Res ults for this AUTOMATED AM EDT undifferentiated cell, proce dure are in non-Burkitt's the results section. HC HEPATITIS C STAT 09/18/2019 10:54 Malignant lymphoma, Re sults for this ANTIBODY AM EDT undifferentiated cell, proce dure are in non-Burkitt's the results section. HC HEPATITIS B CORE STAT 09/18/2019 10:54 Malignant lymphom a, Results for this AB AM EDT undifferentiated cell, proce dure are in non-Burkitt's the results section. HC HIV SCREEN, 4TH STAT 09/18/2019 10:54 Malignant lymphoma , Results for this GENERATION AM EDT undifferentiated cell, proce dure are in non-Burkitt's the results section. HC HEPATITIS B STAT 09/18/2019 10:54 Malignant lymphoma, Re sults for this SURFACE AB AM EDT undifferentiated cell, proce dure are in non-Burkitt's the results section. HC HEPATITIS B STAT 09/18/2019 10:54 Malignant lymphoma, Re sults for this SURFACE AG AM EDT undifferentiated cell, proce dure are in non-Burkitt's the results section. HC CBC,PLT & AUTO STAT 09/18/2019 10:54 Malignant lymphoma, DIFF AM EDT undifferentiated cell, non-Burkitt's HC URIC ACID, SERUM STAT 09/18/2019 10:54 Malignant lymphom a, Results for this AM EDT undifferentiated cell, proce dure are in non-Burkitt's the results section. HC LACTIC STAT 09/18/2019 10:54 Malignant lymphoma, Resu lts for this DEHYDROGENASE AM EDT undifferentiated cell, proc edure are in non-Burkitt's the results section. COMPREHENSIVE STAT 09/18/2019 10:54 Malignant lymphoma, Res ults for this METABOLIC PANEL AM EDT undifferentiated cell, pr ocedure are in (NON-FASTING) non-Burkitt's the results section. documented in this encounter Results (ABNORMAL) Differential, Automated (09/18/2019 10:54 AM EDT) [facility] gist Method Time Signature Neutrophils % 46.1 % [facility] Neutr Abs (ANC) 4.53 1.70 - [facility] 6.10 [facility] x10(3)/[facility] LABORATORY Lymphocytes % 44.7 % [facility] Lymphocytes Abs 4.4 (H) 0.9 - 3.2 [facility] x10(3)/[facility] LABORATORY Monocytes % 6.2 % [facility] Monocyte Abs 0.6 0.3 - 0.9 [facility] x10(3)/[facility] LABORATORY Eosinophils % 2.0 % [facility] Eosinophils Abs 0.2 0.0 - 0.4 [facility] x10(3)/[facility] LABORATORY Basophils % 0.6 % [facility] Basophils Abs 0.1 0.0 - 0.1 [facility] x10(3)/[facility] LABORATORY Immature Gran % 0.40 % [facility] Comment: Immature granulocytes(IG's)percentage an d absolute count will include metamyelocytes, myelocytes, and promyelo cytes. Blood smears from CBCs yielding IG's will be scanned manually for concor dance. If this scan disagrees with the automated IG or if promyelocytes are not ed, a manual differential will be performed. Lorraine Gran Abs 0.04 0.00 - 0.04 x10(3)/[facility] Specimen Anatomical Collection Method Collection Time Receive d Time (Source) Location / / Volume Laterality Blood specimen 09/18/2019 10:54 0 (specimen) AM EDT 11:18 AM EDT Resulting Agency Comment Spec In Lab Bina Monique MD HEMATOLOGY ORDERABLES Performing Organization Address City/State/[place] [address] (ABNORMAL) Hemogram (09/18/2019 10:54 AM EDT) P athologist Signature WBC 9.8 (H) 4.0 - 9.5 [facility] x10(3)/[facility] LABORATORY RBC 4.00 4.00 - [facility] x10(6)/[facility] LABORATORY Hemoglobin 12.1 11.7 - [facility] 15.[facility] gm/dL [facility] Hematocrit 36.1 35.7 - [facility] 45.8 % [facility] MCV 90.3 82.6 - [facility]4 [facility] LAB[facility] MCH 30.3 27.1 - [facility] 32.0 pg [facility] MCHC 33.5 31.7 - [facility] 35.[facility] gm/dL [facility] Platelets 199 145 - 357 [facility] x10(3)/[facility] LABORATORY RDWSD 43.2 37.0 - [facility].0 [facility] LAB[facility]ORY RDWCV 13.1 11.5 - [facility] 14.1 % [facility] MPV 10.1 7.6 - 12.9 [facility] LABORATORY nRBC % Auto 0.0 % [facility] nRBC Abs Auto 0.000 0.000 - [facility] 0.000 [facility] x10(3)/[facility] LABORATORY Specimen Anatomical Collection Method Collection Time Receive d Time (Source) Location / / Volume Laterality Blood specimen 09/18/2019 10:54 0 (specimen) AM EDT 11:18 AM EDT Resulting Agency Comment Spec In Lab Bina Monique MD HEMATOLOGY ORDERABLES Performing Organization Address City/State/[place] [address] (ABNORMAL) Comprehensive metabolic panel (non-fasting) (09/18/2019 10:54 AM EDT) P athologist Signature Glucose Lvl 110 65 - 199 [facility] mg/dL [facility] Comment: Diabetes: >=200 mg/dL plus symp toms BUN 16 8 - 18 mg/dL [facility] Creatinine 0.73 0.70 - 1.20 mg/dL [facility] Sodium 133 (L) 135 - 145 mmol/L [facility] Potassium 3.7 3.5 - 5.0 mmol/L [facility] Comment: Please note: ??Patients with WBC >100,00 0 may have falsely elevated Potassium levels. ??For accurate Potassium quantif ication in these patients send serum separator tube (gold top) for subsequent determinations. ??Contact the Clinical Chemistry Laboratory if there are any qu estions. Chloride 98 98 - 107 mmol/L [facility] CO2 23 22 - 31 mmol/L [facility] Anion Gap 12 5 - 15 mmol/L [facility] Calcium 9.4 8.5 - 10.5 mg/dL [facility] Total Protein 6.7 6.1 - 8.0 gm/dL [facility] Albumin 4.1 3.2 - 5.2 gm/dL [facility] AST 16 0 - 30 unit/L [facility] ALT 12 0 - 30 unit/L [facility] Alk Phos 86 35 - 105 unit/L [facility] Total Bilirubin 0.5 0.2 - 1.3 mg/dL [facility] Estimated GFR 83 >=60 mL/min/1.73 m?? [facility] Comment: The eGFR was calculated using the CKD-EP I equation. As with all creatinine based estimates of kidney function, eGFR values calculated with the CKD-EPI equation are not accurate in patients wi th acute kidney failure, extremes of body mass or the acutely ill. [email or web address] eGFR 96 >=60 mL/min/1.73 m?? [facility] Comment: The eGFR was calculated using the CKD-EP I equation. As with all creatinine based estimates of kidney function, eGFR values calculated with the CKD-EPI equation are not accurate in patients wi th acute kidney failure, extremes of body mass or the acutely ill. [email or web address] Specimen Anatomical Collection Method Collection Time Receive d Time (Source) Location / / Volume Laterality Blood specimen 09/18/2019 10:54 0 (specimen) AM EDT 11:18 AM EDT Resulting Agency Comment Spec In Lab Bina Monique MD CHEMISTRY ORDERABLES Performing Organization Address City/[facility]/ZIP Code Phon e Number [address] Lactate Dehydrogenase (09/18/2019 10:54 AM EDT) P athologist Signature LDH 184 110 - 220 [facility] unit/L [facility] Specimen Anatomical Collection Method Collection Time Receive d Time (Source) Location / / Volume Laterality Blood specimen 09/18/2019 10:54 0 (specimen) AM EDT 11:18 AM EDT Resulting Agency Comment Spec In Lab Bina Monique MD CHEMISTRY ORDERABLES Performing Organization Address City/[facility]/[place]IP [place] [address] (ABNORMAL) Immunoglobulins, Quantitative (09/18/2019 10:54 AM EDT) P athologist Signature IgG 563 (L) 700 - 1,600 [facility] mg/dL [facility] Comment: Pediatric Reference Intervals obtained f rom the Caliper Reference Interval project. [email or web address] [email or web address]/caliperp roject/index.html IgA 43 (L) 70 - 400 mg/dL [facility] Comment: rechecked-ds IgM 31 (L) 40 - 230 mg/dL [facility] Specimen Anatomical Collection Method Collection Time Receive d Time (Source) Location / / Volume Laterality Blood specimen 09/18/2019 10:54 0 (specimen) AM EDT 11:41 AM EDT Resulting Agency Comment Spec In Lab Bina Monique MD CHEMISTRY ORDERABLES Performing Organization Address City/[facility]/ZIP Code Phon e Number [address] Uric acid (09/18/2019 10:54 AM EDT) P athologist Signature Uric Acid 4.2 2.5 - 6.5 [facility] mg/dL [facility] Specimen Anatomical Collection Method Collection Time Receive d Time (Source) Location / / Volume Laterality Blood specimen 09/18/2019 10:54 0 (specimen) AM EDT 11:18 AM EDT Resulting Agency Comment Spec In Lab Bina Monique MD CHEMISTRY ORDERABLES Performing Organization Address City/[facility]/ZIP Code Phon e Number [address] Hepatitis B Core Antibody, [...] Monique MD CHEMISTRY ORDERABLES Performing Organization Address City/[facility]/ZIP [facility] [place] [address] Hepatitis B Surface Antibody (09/18/2019 10:54 AM EDT) P athologist Signature HepB Surface 3.6 IU/L [facility] Ab Quant [facility] Comment: HepB Surface Ab Quant: Unvaccinated: [...] Monique MD IMMUNOLOGY ORDERABLES Performing Organization Address City/[facility]/ZIP [place] [address] Hepatitis B Surface Antigen (09/18/2019 10:54 AM EDT) Analysis Performed At Patho logist Time Signature HepB Surface Negative Negative [facility] LABORATORY Specimen Anatomical Collection Method Collection Time Receive d Time (Source) Location / / Volume Laterality Blood specimen 09/18/2019 10:54 0 (specimen) AM EDT 11:41 AM EDT Resulting Agency Comment Spec In Lab Bina Monique MD CHEMISTRY ORDERABLES Performing Organization Address City/[facility]/ZIP Code Phon e Number [address] Hepatitis C Antibody (09/18/2019 10:54 [...] Monique MD IMMUNOLOGY ORDERABLES Performing Organization Address City/[facility]/ZIP [facility] Phon e Number [address] HIV Screen, 4th Generation ([facility]/CGP/APD) (09/18/2019 10:54 AM EDT) Analysis Performed At Patho logist Time Signature HIV-1/2 Ab and Negative Negative [facility] LABORATORY Comment: This 4th Generation [...] Monique MD IMMUNOLOGY ORDERABLES Performing Organization Address City/State/[facility] Code Phon e Number [place] [phone] documented in this encounter Visit Diagnoses Diagnosis Malignant lymphoma, undifferentiated rosalina l, non-Burkitt's Other malignant lymphomas, unspecified s ite, extranodal and solid organ sites documented in this encounter Care Teams Machine Heel Sprayer Relationship Specialty Start Date End Date Jared Anna MD PCP - General 06/02/10 02/08/21 documented as of this encounter
--- OUTSIDE RECORDS SUMMARY | 2022-05-21 01:04 | XMS_ITS | Encounter Summary ---
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 [address] Referral ID Status Reason Start Date Expiration Date Visits V isits Requested Authorized [id number] Closed Specialty 10/15/2020 04/13/2021 1 1 Service Requested Encounter Details Date Type Department Care Team Description 06/18/2020 Office Visit Hematology/Oncology Venus Mendieta, Grade 2 follicular at [facility] KILN WORKER lymphoma of lymph [address] [facility] nodes of multiple [facility], [place] [id number] HEMATOLOGY/ONCOLOG [phone] Y DEPT. [place], [place] [address] Social History Tobacco Use Types Packs/Day Years Used Date Former Smoker Quit: 1989 Smokeless Tobacco: Never Used Sex Assigned at Date Recorded Not on file documented as of this encounter Last Filed Vital Signs Vital Sign Reading Time Taken Comments Blood Pressure 146/64 06/18/2020 11:38 AM EST Pulse 71 06/18/2020 11:38 AM EST Temperature 36.7 ??C (98 ??F) 06/18/2020 11:38 AM EST Respiratory Rate 20 06/18/2020 11:38 AM EST Oxygen Saturation 98% 06/18/2020 11:38 AM EST Inhaled Oxygen Concentration - - Weight 91.1 kg (200 lb 12.8 oz) 06/18/2020 11:38 AM EST Height 160 cm (5' 3) 06/18/2020 11:38 AM EST Body Mass Index 35.57 06/18/2020 11:38 AM EST documented in this encounter Progress Notes Venus Mendieta, KILN WORKER - 06/18/2020 11:30 AM EST Subjective: Patient ID: Brian Bliss is a 70 y.o. female here for f/u of NHL Patient Active Problem List Diagnosis ??? 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 Biopsy at [place]. 09/06/19 LN Interpretation at [facility] Outside slide(s) labeled [id number], collection date 09/06/2019. Lymph node, supra clavicular [...] Hypercholesterolemia HPI Brian is doing very well. She has not noticed any new or concerning lumps or bumps. Her neck nodes seem to come and go, other than her occipital node which has been stable. She denies any recent infections, no fevers or chills, no night sweats. Overall her energy has been good - she did have 1 day offatigue last weekend and she was concerned that something was wrong - but this resolved. 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 She continues to have massage every 3 weeks which has been helpful. Review of Systems Constitutional: Negative. HENT: Negative. Eyes: Negative. Respiratory: Negative. Negative for cough and shortness of breath. Cardiovascular: Negative. Negative for chest pain, palpitations and leg swelling. Gastrointestinal: Negative. Negative for constipation, diarrhea, nausea and vomiting. Genitourinary: Negative. Musculoskeletal: Positive for arthralgias. Heel gavin/ bursitis - being followed by PCP Skin: Negative. Neurological: Negative. Negative for syncope, weakness and numbness. Hematological: Negative. Psychiatric/Behavioral: Negative. Objective: Physical Exam Constitutional: General: She is not in acute distress. Appearance: She is well-developed. HENT: Mouth/Throat: Pharynx: No oropharyngeal exudate. Eyes: Conjunctiva/sclera: Conjunctivae normal. Pupils: Pupils are equal, round, and reactive to light. Neck: Musculoskeletal: Normal range of motion and neck supple. Cardiovascular: Rate and Rhythm: Normal rate and regular rhythm. Heart sounds: Normal heart sounds. No murmur. Pulmonary: Effort: Pulmonary effort is normal. Breath sounds: Normal breath sounds. No wheezing or rales. Abdominal: General: Bowel sounds are normal. Palpations: Abdomen is soft. There is no mass. Tenderness: There is no guarding or rebound. Musculoskeletal: Normal range of motion. Lymphadenopathy: Cervical: Cervical adenopathy present. Upper Body: Right upper body: Axillary adenopathy present. No supraclavicular adenopathy. Left upper body: Axillary adenopathy present. No supraclavicular adenopathy. Lower Body: No right inguinal adenopathy. No left inguinal adenopathy. Comments: bilat 1-2 cervical, sc and occipital nodes bilat 1-2 cm axillary nodes Skin: General: Skin is warm and dry. Neurological: Mental Status: She is alert and oriented to person, place, and time. 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 Her FLIPI Score is 3 (age, stage, LN sites). She has had no treatment to date. She is doing very well with stable adenopathy, no recent infections. NO B symptoms and stable counts. We reviewed the waxing and waning tendencies of low grade NHL. We discussed triggers for treatment and importance of self care. Encouraged to trya nd increase her daily activity as we move into a new year. We will see her abck in 4 months with a repeat CT scan to get a feel for the pace of her diease growth. She is aware to call us in the interim should she develop any new or concerning symptoms. ? documented in this encounter Plan of Treatment Upcoming Encounters Date Type Specialty Care Team Description 06/16/2022 Office Visit Hematology and Oncology Jackie Dillon APRN [facility] HEMATOLOGY/ONCOL [facility] [place], [place] [address] (Wo rk) 06/16/2022 Infusion Hematology and Oncology documented as of this encounter Procedures Procedure Name Priority Date/Time Associated Diagnosis Comme nts CBC (WITH DIFF) Routine 06/13/2020 Results for this procedure are i n the results section . LACTATE DEHYDROGENASE Routine 06/13/2020 Result s for this procedure are i n the results section . COMPREHENSIVE METABOLIC Routine 06/13/2020 Resu lts for this PANEL (NON-FASTING) procedur e are in the results section . documented in this encounter Results CT Chest [...] who have questions please contact the health laboratory animal caretaker that requested your imaging first. ? --------ORIGINAL [...] who have questions please contact the health laboratory animal caretaker that requested your imaging first. ? Impressions 10/17/2020 1:48 PM EDT 1. ??Diffuse [...] who have questions please contact the health laboratory animal caretaker that requested your imaging first. ? Narrative 10/17/2020 1:48 PM EDT EXAMINATION: CT [...] ho have questions please contact the health laboratory animal caretaker that requested your imaging first. Venus Mendieta APRN IMG CT ORDERABLES Lactate Dehydrogenase (10/17/2020 10:41 AM EDT) athologist Signature LDH 179 110 - 220 [facility] unit/L [facility] Specimen Anatomical Collection Method Collection Time Receive d Time (Source) Location / / Volume Laterality Blood specimen 10/17/2020 10:41 1 (specimen) AM EDT 10:52 AM EDT Resulting Agency Comment Spec In Lab Venus Mendieta APRN CHEMISTRY ORDERABLES Performing Organization Address City/State/[place] [address] (ABNORMAL) Comprehensive metabolic panel (non-fasting) (10/17/2020 10:41 AM EDT) athologist Signature Glucose Lvl 98 65 - 199 [facility] mg/dL [facility] Comment: Diabetes: >=200 mg/dL plus symp toms BUN 21 (H) 8 - 18 mg/dL [facility] Creatinine 0.80 0.70 - 1.20 mg/dL [facility] Sodium 139 135 - 145 mmol/L [facility] Potassium 4.2 3.5 - 5.0 mmol/L [facility] Comment: Please note: ??Patients with WBC >100,00 0 may have falsely elevated Potassium levels. ??For accurate Potassium quantif ication in these patients send serum separator tube (gold top) for subsequent determinations. ??Contact the Clinical Chemistry Laboratory if there are any qu estions. Chloride 103 98 - 107 mmol/L [facility] CO2 27 22 - 31 mmol/L [facility] Anion Gap 9 5 - 15 mmol/L [facility] Calcium 9.3 8.5 - 10.5 mg/dL [facility] Total Protein 6.3 6.1 - 8.0 gm/dL [facility] Albumin 4.3 3.2 - 5.2 gm/dL [facility] AST 20 0 - 30 unit/L [facility] ALT 17 0 - 30 unit/L [facility] Alk Phos 78 35 - 105 unit/L [facility] Total Bilirubin 0.5 0.2 - 1.3 mg/dL [facility] Estimated GFR 74 >=60 mL/min/1.73 m?? [facility] Comment: This patient? s estimated [...] Organization Address City/State/ZIP [place] [address] Lactate Dehydrogenase (06/13/2020) athologist Signature LDH 198 Specimen (Source) Anatomical Location Collection Method / Collectio n Time Received Time / Laterality Volume Blood specimen 06/13/2020 (specimen) Venus Mendieta APRN CHEMISTRY ORDERABLES Comprehensive metabolic panel (non-fasting) (06/13/2020) athologist Signature BUN 17 Creatinine 0.62 Specimen (Source) Anatomical Location Collection Method / Collectio n Time Received Time / Laterality Volume Blood specimen 06/13/2020 (specimen) Venus Mendieta APRN CHEMISTRY ORDERABLES CBC (with Diff) (06/13/2020) athologist Signature WBC 5.2 Hemoglobin 12.4 Hematocrit 36.5 Platelets 176 Neutr Abs (ANC) 3.3 Specimen (Source) Anatomical Location Collection Method / Collectio n Time Received Time / Laterality Volume Blood specimen 06/13/2020 (specimen) Venus Mendieta APRN HEMATOLOGY ORDERABLES documented in this encounter Visit Diagnoses Diagnosis 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 documented in this encounter Care Teams Concrete Hopper Operator Relationship Specialty Start Date End Date Jared Anna MD PCP - General 06/02/10 02/08/21 documented as of this encounter
--- OUTSIDE RECORDS SUMMARY | 2022-05-21 01:04 | XMS_ITS | Encounter Summary ---
:1950 Author Organization [facility] [place] [address] Care Team Providers Name Role Phone Jared Anna MD Primary Care Provider Reason for Visit Reason Onset Date Comments Other 05/19/2020 Encounter Details Date Type Department Care Team Description 05/19/2020 Telephone Hematology/Oncology at Izzy Del Valle RN Other [place] [phone] Social History Tobacco Use Types Packs/Day Years Used Date Former Smoker Quit: 1989 Smokeless Tobacco: Never Used Sex Assigned at Date Recorded Not on file documented as of this encounter Miscellaneous Notes Telephone Encounter - Izzy Mayer RN - 05/19/2020 4:56 PM EST 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 Venus Mendieta SOLAR DESIGNER/INSTALLER stated with appropriate precautions she can work, that it is a personal decision and her age puts her at greater risk for complications from covid. Reviewed with pt who appreciated information. documented in this encounter Plan of Treatment Upcoming Encounters Date Type Specialty Care Team Description 06/16/2022 Office Visit Hematology and Oncology Jackie Dillon APRN [facility] HEMATOLOGY/ONCOL SHADIA DEPT. [place], [place] [address] (Wo rk) 06/16/2022 Infusion Hematology and Oncology documented as of this encounter Visit Diagnoses Not on filedocumented in this encounter Care Teams Hat Blocking Operator Relationship Specialty Start Date End Date Jared Anna MD PCP - General 06/02/10 02/08/21 documented as of this encounter
--- OUTSIDE RECORDS SUMMARY | 2022-05-21 01:04 | XMS_ITS | Encounter Summary ---
:1950 Author Organization [facility] [place] [address] Care Team Providers Name Role Phone Jared Anna MD Primary Care Provider Encounter Details Date Type Department Care Team Description 09/19/2019 External Results Medical Records Provider, [place] [address] Social History Tobacco Use Types Packs/Day Years Used Date Former Smoker Quit: 1989 Smokeless Tobacco: Never Used Sex Assigned at Date Recorded Not on file documented as of this encounter Plan of Treatment Upcoming Encounters Date Type Specialty Care Team Description 06/16/2022 Office Visit Hematology and Oncology Jackie Dillon, FIBERGLASS AUTOBODY REPAIRER [facility] HEMATOLOGY/ONCOL SHADIA DEPT. [place], [place] [address] (Wo rk) 06/16/2022 Infusion Hematology and Oncology documented as of this encounter Procedures Procedure Name Priority Date/Time Associated Diagnosis Comme nts SURGICAL PATHOLOGY Routine 09/19/2019 Results f or this SCAN procedure are i n the results section . documented in this encounter Results Scan Doc: Surgical Pathology (09/19/2019) Narrative This result has an attachment that is no t available. Historical Provider MD MARTINEZ MGR SCAN EXT ORDR/RSLT documented in this encounter Visit Diagnoses Not on filedocumented in this encounter Care Teams Compressed Air Pile Driver Operator Relationship Specialty Start Date End Date Jared Anna MD PCP - General 06/02/10 02/08/21 documented as of this encounter
--- OUTSIDE RECORDS SUMMARY | 2022-05-21 01:04 | XMS_ITS | Encounter Summary ---
:1950 Author Organization [facility] [place] [address] Care Team Providers Name Role Phone Jared Anna MD Primary Care Provider Encounter Details Date Type Department Care Team Description 09/10/2020 Hospital [place] [address] Social History Tobacco Use Types Packs/Day [...] mcg (2,000 unit) Tablet by mouth daily. fluticasone propionate 1 spray by Each 16 g 12 06/18/20 20 03/20/2021 (FLONASE) 50 mcg/actuation Nare route [place], Suspension daily. cetirizine (ZyrTEC) 10 mg Take [...] Office Visit Hematology and Oncology Jackie Dillon, TRAM DRIVER [facility] HEMATOLOGY/ONCOL VALERIE DEPT. [place], [place] [address] (Wo rk) 06/16/2022 Infusion Hematology and Oncology documented as of this encounter Procedures Procedure Name Priority Date/Time Associated Diagnosis Comme [facility] SURGICAL PATHOLOGY Routine 09/10/2020 10:32 AM Hermelinda dowd for this REPORT EST procedure are i n the results section. documented in this encounter Results Surgical Pathology Report (09/10/2020 10:32 AM EST) Component Value Ref Test Analysis Performed At [facility] Range Method Time Signature Surgical [id number] ? Location: [facility] Pathology [place] Report The signing pathologist has (i) examined the relevant preparation(s) for the [facility]ORIAL specimen(s) and (ii) rendered or confirmed the diagnosis(es) . HOSPITAL LABORATORY . ?Surgic al Pathology DIAGNOSIS Toe Nail, clippings: - Onychomycosis Electronically signed by: ??Bhavani Agudelo MD Verified: ??09/16/2020 ?Dermatopathologist Performed at: ??-[facility] Dept. of Pathology, [place], [place] ADDITIONAL STUDIES PAS/Fungus stain highlights fungal hyphal forms within the n ail tissue. SPECIMEN(S) SUBMITTED A - toe nail clippings Referring Identifier: ??[id number] CLINICAL INFORMATION Thick dystrophic nails; onychomycosis, PAS stain SPECIMEN PROCESSING A - Labeled/Fixative: Patient demographics, fresh. Quantity/Size: Multiple, 1.5 x 1.5 x 0.5 cm. Tissue Description: Aggregate of brittle, opaque, yellow isidoro l fragments. Sections/Processing: Entirely submitted in 2 cassettes labeled A1-A2. ??arely Specimen (Source) Anatomical Collection Method Collection Time Re ceived Time Location / / Volume Laterality 09/10/2020 10:32 AM EST Resulting Agency Comment Spec In Lab / [facility] Venus Caro DPM PATHOLOGY/CYTOLOGY ORDERABLE S Performing Organization Address City/State/[place] [address] documented in this encounter Visit Diagnoses Not on filedocumented in this encounter Care Teams Communications Department Head Relationship Specialty Start Date End Date Jared Anna MD PCP - General 06/02/10 02/08/21 documented as of this encounter
--- OUTSIDE RECORDS SUMMARY | 2022-05-21 01:04 | XMS_ITS | Encounter Summary ---
:1950 Author Organization [facility] [place] [address] Care Team Providers Name Role Phone Jared Anna MD Primary Care Provider Encounter Details Date Type Department Care Team Description 09/19/2019 [place] [address] Social History Tobacco Use Types Packs/Day [...] Office Visit Hematology and Oncology Jackie Dillon, CHIEF OPERATING OFFICER [facility] HEMATOLOGY/ONCOL SHADIA DEPT. [place], [place] [address] (Wo rk) 06/16/2022 Infusion Hematology and Oncology documented as of this encounter Procedures Procedure Name Priority Date/Time Associated Diagnosis Comme nts SURGICAL PATHOLOGY Routine 09/19/2019 3:02 PM Res ults for this REPORT EDT procedure are i n the results section. documented in this encounter Results Surgical Pathology Report (09/19/2019 3:02 PM EDT) Component Value Ref Test Analysis Performed At [facility] Range Method Time Signature Surgical [id number] ? Location: [facility] Report The signing pathologist has (i) examined the relevant preparation(s) for the [facility]ORIAL specimen(s) and (ii) rendered or confirmed the diagnosis(es) . HOSPITAL LABORATORY . ?Surgic al Pathology DIAGNOSIS CONSULTATION CASE Outside slide(s) labeled [id number], collection date 020. Lymph node, supra clavicular , biopsy : Involved by Follicular lymphoma Grade 3A of 3( 50%) and grade 1-2 of 3 ( 50% ) Electronically signed by: ??Bonny MACEDO, Iain Verified: ??09/20/2019 ?Hematopathologist Performed at: ??-[facility] Dept. of Pathology, [place], [place] DISCUSSION The lymph node architecture is effaced by a back-to back follicles. The follicles comprise of centrocytes and centroblasts. There are >15 centroblasts ??per hpf averaged over 10HPF in atle ast 50% of the lymph node and <15 centroblast /HPF in 50% of the lymph node speci men submitted for review. ??The neoplastic infiltrate is positive for PAX5, BCL2 ??Ki-67 shows variable proliferation rate within the follicles and some nodules show atleast 50% PI. Per submitted report flow analysis shows a CD19+/Cd20+/CD10 positive kappa restricted B cell p opulation. CLINICAL INFORMATION Specimen Submitted: CONSULTATION CASE A - 5 slide(s) labeled [id number], collection date 0. [id number] Report to: [facility] Surgical Pathology Department [facility], [facility], 2nd Floor [address], [place] ??[address] SPECIMEN PROCESSING [facility] ([facility]) pathology slide(s) are reviewed. ??Refer to Diagnosis and Specimen Submitted for specific case infor mation. For the full text of the [facility] report(s) please refer t o Non-DH Documentation Pathology in the electronic health record (eDH). Specimen (Source) Anatomical Collection Method Collection Time Re ceived Time Location / / Volume Laterality 09/19/2019 3:02 PM EDT Bina Monique MD PATHOLOGY/CYTOLOGY ORDERABLE S Performing Organization Address City/State/[place] [address] documented in this encounter Visit Diagnoses Not on filedocumented in this encounter Care Teams Qc Manager Relationship Specialty Start Date End Date Jared Anna MD PCP - General 06/02/10 02/08/21 documented as of this encounter
--- OUTSIDE RECORDS SUMMARY | 2022-05-21 01:04 | XMS_ITS | Encounter Summary ---
:1950 Author Organization [facility] [address] Care Team Providers Name Role Phone Jared Anna MD Primary Care Provider Encounter Details Date Type Department Care Team Description 02/20/2020 Office Visit Hematology/Oncology Bina Monique 2 follicular at [facility] MD Luis lymphoma of [address] nodes of multiple [place], [place] regions [address] HEMATOLOGY/ONCOLOGY [phone] DEPT. [place], [place] [address] (Wo rk) Social History Tobacco Use Types Packs/Day Years Used Date Former Smoker Quit: 1989 Smokeless Tobacco: Never Used Sex Assigned at Date Recorded Not on file documented as of this encounter Last Filed Vital Signs Vital Sign Reading Time Taken Comments Blood Pressure 159/69 02/20/2020 1:59 PM EDT Pulse 71 02/20/2020 1:59 PM EDT Temperature 37 ??C (98.6 ??F) 02/20/2020 1:59 PM EDT Respiratory Rate 16 02/20/2020 1:59 PM EDT Oxygen Saturation 100% 02/20/2020 1:59 PM EDT Inhaled Oxygen Concentration - - Weight 91.5 kg (201 lb 12.8 oz) 02/20/2020 1:59 PM EDT Height 159 cm (5' 2.6) 02/20/2020 1:59 PM EDT Body Mass Index 36.21 02/20/2020 1:59 PM EDT documented in this encounter Progress Notes Bina Monique MD - 02/20/2020 2:00 PM EDT Hematology Clinic [facility] [place] [id number] HEMATOLOGY PATIENT EVALUATION Patient Active Problem List Diagnosis ??? 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 Biopsy at [place]. 09/06/19 LN Interpretation at [facility] Outside slide(s) labeled [id number], collection date 09/06/2019. Lymph node, supra clavicular [...] Support person(s) : Geovanny; son, Skyler. Brian Ibanez is a 69 y.o. year old female being seen for Follow up of follicular lymphoma. she is referred in consultaion from Dr. Jared Jones, at [facility] for follicular lymphoma. It was a [...] time for all of us as we fpc in place to combat the coronavirus. She has had no recent night sweats. She has had no unintentional weight loss. No signs or symptoms of an infection. She notes waxing and waning LN in neck axilla and groin. She reports skinnier stools and better w/ metmucil. She states last colo was w/in 5 yrs w/ Dr Carcamo- she thinks it was in 2018. Looking on PET I doubt the lymphoma would be causing this but will follow closely. [place] COVID neg X 2 so far. Brian is here after a restaging CT of the neck chest and abdomen and pelvis last week. This was compared to her PET scan of September 2019 PMHX: Hypertension Hyperlipidemia Hypothyroidism Anxiety - nicely [...] Outpatient Medications Marked as Taking for the 02/20/20 encounter (Office Visit) with Bina Monique MD Medication Sig Dispense Refill ??? cetirizine (ZyrTEC) 10 mg Tablet Take [...] HISTORY Personal: to [employer]ov[employer]. 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 Currently doing Wt Watcher w/ school friends. Loves to cook and read and shop with friends and visit son. One son, Skyler, 36 yo in [place]. He is engaged! She did the [employer] Plunge for [employer] at [place]. Aug 2019! 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 Body surface area is 2.01 meters squared. GENERAL: Brian Ibanez appears well [...] for BRIAN IBANEZ ( ) as of 02/19/2020 23:06 Ref. Range 02/11/2020 10:38 WBC Latest Ref Range: 4.0 - 9.5 x10(3)/mcL 6.0 RBC Latest Ref Range: 4.00 - 5.21 x10(6)/mcL 3.76 (L) Hemoglobin Latest Ref Range: 11.7 - 15.5 gm/dL 11.7 Hematocrit Latest Ref Range: 35.7 - 45.8 % 35.4 (L) MCV Latest Ref Range: 82.6 - 94.4 fL 94.1 MCH Latest Ref Range: 27.1 - 32.0 pg 31.1 MCHC Latest Ref Range: 31.7 - 35.0 gm/dL 33.1 RDWSD Latest Ref Range: 37.0 - 46.0 fL 43.3 RDWCV Latest Ref Range: 11.5 - 14.1 % 12.5 Platelets Latest Ref Range: 145 - 357 x10(3)/mcL 159 MPV Latest Ref Range: 7.6 - 12.9 fL 10.0 nRBC % Auto Latest Units: % 0.0 nRBC Abs Auto Latest Ref Range: 0.000 - 0.000 x10(3)/mcL 0.000 Neutr Abs (ANC) Latest Ref Range: 1.70 - 6.10 x10(3)/mcL 2.45 Neutrophils % Latest Units: % 40.7 Immature Gran % Latest Units: % 0.30 Lymphocytes % Latest Units: % 47.8 Monocytes % Latest Units: % 7.6 Eosinophils % Latest Units: % 2.8 Basophils % Latest Units: % 0.8 Lorraine Gran Abs Latest Ref Range: 0.00 - 0.04 x10(3)/mcL 0.02 Lymphocytes Abs Latest Ref Range: 0.9 - 3.2 x10(3)/mcL 2.9 Monocyte Abs Latest Ref Range: 0.3 - 0.9 x10(3)/mcL 0.5 Eosinophils Abs Latest Ref Range: 0.0 - 0.4 x10(3)/mcL 0.2 Basophils Abs Latest Ref Range: 0.0 - 0.1 x10(3)/mcL 0.0 Sodium Latest Ref Range: 135 - 145 mmol/L 143 Potassium Latest Ref Range: 3.5 - 5.0 mmol/L 4.1 Chloride Latest Ref Range: 98 - 107 mmol/L 104 CO2 Latest Ref Range: 22 - 31 mmol/L 25 Anion Gap Latest Ref Range: 5 - 15 mmol/L 14 BUN Latest Ref Range: 8 - 18 mg/dL 23 (H) Creatinine Latest Ref Range: 0.70 - 1.20 mg/dL 0.76 eGFR Latest Ref Range: >=60 mL/min/1.73 m?? 79 eGFR Latest Ref Range: >=60 mL/min/1.73 m?? 91 Calcium Latest Ref Range: 8.5 - 10.5 mg/dL 9.5 Glucose Lvl Latest Ref Range: 65 - 199 mg/dL 108 Total Protein Latest Ref Range: 6.1 - 8.0 gm/dL 6.2 Albumin Latest Ref Range: 3.2 - 5.2 gm/dL 4.3 Total Bilirubin Latest Ref Range: 0.2 - 1.3 mg/dL 0.4 Alk Phos Latest Ref Range: 35 - 105 unit/L 78 AST Latest Ref Range: 0 - 30 unit/L 12 ALT Latest Ref Range: 0 - 30 unit/L 12 LDH Latest Ref Range: 110 - 220 unit/L 170 PATHOLOGY: 09/06/19 LN Interpretation at [facility] Outside slide(s) labeled [id number], collection date 09/06/2019. Lymph node, supra clavicular [...] CD19+/Cd20+/CD10 positive kappa restricted B cell population. [facility] Path 09/06/19 Path report in care everywhere. Reports follicular lymphoma grade 1-2. Immunoperoxidase stains were performed on this case to further characterize the lesion. ANTIBODY(CLONE)(BLOCK):RESULT CD3 (SP7, [employer]) (A3): Highlights background T-cells PAX-5 (1EW, Leica) (A3): Highlights neoplastic cells BCL-2 Oncoprotein (124, [place]) (A3): Positive in neoplastic cells Ki67 (MIB-1) [...] on image 49 of series 5. ?? There is no nasopharyngeal, oropharyngeal, floor of mouth, laryngeal, or hypopharyngeal mass. The thyroid gland enhances homogeneously. The paranasal sinuses, middle ear cavity, and mastoid air cells are well aerated. ?? The visualized intracranial structures appear grossly normal. ?? Carotid and vertebral arteries appear patent. The jugular venous systems are patent. ?? Lung apices are clear. ?? IMPRESSION Interval progression of lymphadenopathy within the cervical region. 02/11/20 CT CAP EXAMINATION: CT CHEST ABDOMEN PELVIS W CONTRAST (GENERIC) ?? CLINICAL HISTORY: Hematologic malignancy, surveillance h/o lymphoma; surveillance compare to PET with indicator sites. ? TECHNIQUE: Helical CT of the chest, abdomen, and pelvis was performed following the intravenous administration of contrast. Administered 105.0 ml of OMNIPAQUE 350.00 mg/ml. Oral contrast was administered. ?? COMPARISON: PET CT 10/04/19 ?? FINDINGS: ?? Chest: Lungs and large airways: No new or enlarging pulmonary nodules. Pleura: No pleural effusions. Heart/vasculature: Normal cardiac size. No thoracic aortic aneurysm. Lymph nodes/Mediastinum/Jared: Enlarged lymph nodes throughout bilateral axillae, supraclavicular regions, mediastinum, and jared. Some of these have enlarged since the previous PET/CT, for example indicator lesion #1 has increased from 16 x 24 mm to 20 x 28 mm. ?? Abdomen/pelvis: Liver: Normal size and attenuation. No lesions. Bile ducts: Nondilated. Gallbladder: No calcified gallstones. Normal caliber wall. Pancreas: Normal attenuation without ductal dilatation. Spleen: Normal. 11 cm maximum craniocaudal dimension. Adrenals: Normal. Kidneys: Left renal simple cysts measuring 2.4 cm and 1.3 cm. No suspicious lesions or hydronephrosis. Urinary Bladder: Normal. ?? Vasculature: No aneurysm. Lymph Nodes: Numerous enlarged mostly retroperitoneal and [...] wall thickening. Peritoneum and mesentery: No fluid collections or pneumoperitoneum. Abdominal wall: Small fat-containing umbilical hernia. ?? Reproductive organs: Normal. Osseous structures: No suspicious lesions. ?? The following indicator lesions were measured [...] in sizecompared with the PET/CT from 10/04/19. ASSESSMENT/PLAN: Brian Ibanez is a very pleasant [...] was not initially pursued given shankar epidemic. Brian is seen today after a restaging CAT scan of the neck chest abdomen and pelvis. I reviewed theresults with her. Over the last 6 months there is been mild progression in her adenopathy. Her largest lymph node is in the pelvis and is 6 cm. Most lymph nodes increased by about half a centimeter, although comparisons with PET versus CT is always difficult. At this point, based on the size of her adenopathy alone she does not yet meet criteria for treatment. However, performance status B symptoms, patient preference, and rate of progression must also be taken into account. Brian continues to report increased appetite, wt gain, bloating and skinny stools Some of the wt gain can be attributed to COVID sedentary lifestyle and increased alcohol and not working. Stools are normal if she takes metamucil. Her last colo was 2017. I cannot explain her sx based on her CT and lymphoma. There is no adenopathy that appears to be limiting or obstructing her bowel. If the change in bowels continue she should consider repeat colo but will defer to Dr Carcamo and her PCP. Plan: ?? RTC in 4 mos with cbc,cmp, ldh at [place] a week prior ?? Tentatively plan repeat surveillance CT in about 8 mos. I discussed all of the above with the patient and all of her questions were answered. Support and counseling given as appropriate. This note was written or modified using [employer] voice recognition software. The final note was screened for mistakes. Please excuse any remaining errors. total time: time in counselling: Copy Jared Anna MD documented in this encounter Plan of Treatment Upcoming Encounters Date Type Specialty Care Team Description 06/16/2022 Office Visit Hematology and Oncology Jackie Dillon, AUDIT SENIOR ASSOCIATE [facility] HEMATOLOGY/ONCOL SHADIA DEPT. [place], [place] [address] (Wo rk) 06/16/2022 Infusion Hematology and Oncology documented as of this encounter Visit Diagnoses Diagnosis 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 documented in this encounter Care Teams Community Fundraiser Relationship Specialty Start Date End Date Jared Anna MD PCP - General 06/02/10 02/08/21 documented as of this encounter
--- OUTSIDE RECORDS SUMMARY | 2022-05-21 01:04 | XMS_ITS | Encounter Summary ---
:1950 [address] [facility] [place] [address] Care Team Providers Name Role Phone Jared Anna MD Primary Care Provider Reason for Referral Diagnostic Test (Routine) - Closed Specialty Diagnoses / Procedures Referred By Contact Refer red To Contact Radiology Diagnoses Malignant lymphoma, undifferentiated cell, non-Burkitt's Bina Monique [facility] Rad Nuclear Med Procedures NM PET CT Skull Base to Mid-thigh [facility] HEMATOLOGY/[place] [address] [place] [address] Referral ID Status Reason Start Date Expiration Date Visits V isits Requested Authorized [id number] Closed Specialty 09/17/2019 03/19/2021 1 1 Service Requested Reason for Visit Diagnostic Test (Routine) - Closed Specialty Diagnoses / Procedures Referred By Contact Refer red To Contact Radiology Diagnoses Malignant lymphoma, undifferentiated cell, non-Burkitt's Bina Monique, [facility] Rad Nuclear Med Procedures NM PET CT Skull Base to Mid-thigh [facility] HEMATOLOGY/[place] [address] [place] [address] Referral ID Status Reason Start Date Expiration Date Visits V isits Requested Authorized [id number] Closed Specialty 09/17/2019 03/19/2021 1 1 Service Requested Encounter Details Date Type Department Care Team Description 10/04/2019 Hospital Nuclear Medicine [place], Malignant l ymphoma, [facility] undifferentiated cell, [facility] [address] [place] HEMATOLOGY/ONCOL [address] OGY DEPT. [phone] [place] [address] Social History Tobacco Use Types Packs/Day Years [...] Office Visit Hematology and Oncology Jackie Dillon, ERP DEVELOPER [facility] HEMATOLOGY/ONCOL SHADIA [place], [place] [address] (Wo rk) 06/16/2022 Infusion Hematology and Oncology documented as of this encounter Procedures Procedure Name Priority Date/Time Associated Diagnosis Comme nts NM PET CT SKULL Routine 10/04/2019 3:48 Malignant lymphoma, Re sults for this BASE TO MID-THIGH PM EDT undifferentiated cell, procedure are in ([facility]) non-Burkitt's the results section. documented in this encounter Results NM [...] report, please contact e number below. ? Narrative 10/04/2019 4:43 PM EDT EXAMINATION: NM PET CT SKULL BASE TO MID-THIGH ? CLINICAL HISTORY: Hematologic malignancy , grade 2 follicular lymphoma initial staging evaluation TECHNIQUE: Following IV injection of 18- jafroq-5-njbocwggstav (FDG) a standard uptake of approximately 60 [...] evaluation TECHNIQUE: Following IV injection of 18- onuarv-6-ovodnynoqqps (FDG) a standard uptake of approximately 60 [...] For questions regarding this report, please contact [facility] below. Bina Monique MD IMG PET ORDERABLES documented in this encounter Visit Diagnoses Diagnosis Malignant lymphoma, undifferentiated rosalina l, non-Burkitt's Other malignant lymphomas, unspecified s ite, extranodal and solid organ sites documented in this encounter Administered Medications Inactive Administered Medications - up to 3 most recent administrations Medication Order MAR Action Action Date Dose Rate Site fludeoxyglucose (F-18) FDG Given 10/04/2019 2:45 PM 17.1 mCi Right Arm injection 0-20 mCi EDT 0-20 mCi, Intravenous, ONCE PRN, 1 dose, Starting on Yocasta 10/04/19 at 1445, Until Yocasta 10/04/19 at 1445, Per Protocol, Radiology Contrast, Routine documented in this encounter Care Teams Telephone Claims Representative Relationship Specialty Start Date End Date Jared Anna MD PCP - General 06/02/10 02/08/21 documented as of this encounter
--- OUTSIDE RECORDS SUMMARY | 2022-05-21 01:04 | XMS_ITS | Encounter Summary ---
:1950 Author Organization [facility] [place] [address] Care Team Providers Name Role Phone Jared Anna MD Primary Care Provider Encounter Details Date Type Department Care Team Description 03/22/2011 Hospital Encounter Laboratory Bina Young, [facility] [address] [place] [address] [place] [address] [phone] (Wo rk) Social History Tobacco Use Types Packs/Day Years Used Date Never Assessed Sex Assigned at Date Recorded Not on file documented as of this encounter Plan of Treatment Upcoming Encounters Date Type Specialty Care Team Description 06/16/2022 Office Visit Hematology and Oncology Jackie Dillon, ROULA [facility] HEMATOLOGY/ONCOL SHADIA DEPT. [place], [place] [address] (Wo rk) 06/16/2022 Infusion Hematology and Oncology documented as of this encounter Procedures Procedure Name Priority Date/Time Associated Diagnosis Comme nts MOBILE SALES TECHNICIAN CYTOLOGY FINAL Routine 03/22/2011 6:44 PM Res ults for this REPORT EDT procedure are i n the results section. documented in this encounter Results MOBILE SALES TECHNICIAN CYTOLOGY FINAL REPORT (03/22/2011 6:44 PM EDT) Component Value Ref Test Analysis Performed At [facility] Range Method Time Signature Partridge Farmer Cytology CERNER Final Report ? [facility] ? Provider: ?? CHERELLE RODRIGES ?Pt. Name: ?? BRIAN IBANEZ ? Acc #: ?[id number] ?Pt. MRN: ?[id number] ? Col Date: ?? 1 ? /Sex: ?1950,(60 years),Female ? Rec Date: ?? 03/23/2011 ? LOC: ?[facility] ? CYTOPATHOLOGY: ??MOBILE SALES TECHNICIAN ? ---Adequacy--- ? Specimen submitted is satisfactory. ? Endocervical component present. ? ---Cytopathologic Diagnosis--- ? NORMAL ? Negative for Intraepithelial Lesion or Malignancy (NI LM). ? 03/26/11 ?? Screened by: ??FMQ ? 03/26/11 ?? Verified by: ??Kevin LOWERY(ASCP), Kristofer Ariza - Group Home Paraprofessional ? ---Clinical Information--- ? HPV Option: ? Reflex HPV ? Preparation: ?Liquid Based Pap ? Specimen Source: ?Cervical/Vaginal/LBP ? LMP: ?Postmenopausal ? Hormones?: ?No ? Hysterectomy?: ?No ?: ?No ?: ?No ? I.U.D.?: ?No ? Pelvic Radiation: ? No ? Prior MOBILE SALES TECHNICIAN Therapy?: ? No ? Hist Abnl Pap/Biopsy?: ??Yes ? Hist of HPV Vaccine?: ?? (not provided) ? Hist of Smoking?: ? (not provided) ? Hist of TIGRE exposure?: ??(not provided) ? Clinical Data, Significant Therapy and Clinical Impre ssion: ?Referring Identifier: ??[id number] ? This Pap Test has bee n evaluated with the assistance of the ThinPrep Pap ? Test Imaging System. ? Note: ? The Pap test is a screening test for cervical c ancer with an inherent ? false-negative rate dependent upon several variables. ??For further ? information please contact the [facility]. ? Reference: ??Jem portillo CS. ??Cathead Worker of Pap Smear Results. ??In: ? Dave BS, Roberto HH, ed. ??The Pap Smear. ??[place]: ??Ziyad, 2002: ? 71-77. Specimen (Source) Anatomical Collection Method Collection Time Re ceived Time Location / / Volume Laterality 03/22/2011 6:44 PM EDT Cherelle GONZALES PATHOLOGY/CYTOLOGY ORDERABLE S Performing Organization Address City/State/ZIP [place] [address] [facility] documented in this encounter Visit Diagnoses Not on filedocumented in this encounter Care Teams Assembler Hydraulic Backhoe Relationship Specialty Start Date End Date Jared Anna MD PCP - General 06/02/10 02/08/21 documented as of this encounter
--- OUTSIDE RECORDS SUMMARY | 2022-05-21 01:04 | XMS_ITS | Encounter Summary ---
:1950 [place] [address] Care Team Providers Name Role Phone Jared Anna MD Primary Care Provider Reason for Visit Reason Comments Follow-up Encounter Details Date Type Department Care Team Description 10/08/2019 Office Visit Hematology and Bina Monique Grade 2 follicular Oncology at [facility] [place] Luis lymphoma of [facility] nod es of multiple Drive eboni [place], [place] HEMATOLOGY/ONCOLOGY [address] DEPT. [phone] [place], [place] [address] (Wo rk) Social History Tobacco Use Types Packs/Day Years Used Date Former Smoker Quit: 1989 Smokeless Tobacco: Never Used Sex Assigned at Date Recorded Not on file documented as of this encounter Last Filed Vital Signs Vital Sign Reading Time Taken Comments Blood Pressure 173/83 10/08/2019 3:20 PM EDT Pulse 72 10/08/2019 3:20 PM EDT Temperature 36.7 ??C (98.1 ??F) 10/08/2019 3:20 PM EDT Respiratory Rate 19 10/08/2019 3:20 PM EDT Oxygen Saturation 100% 10/08/2019 3:20 PM EDT Inhaled Oxygen Concentration - - Weight 89.4 kg (197 lb) 10/08/2019 3:20 PM EDT Height 159 cm (5' 2.6) 10/08/2019 3:20 PM EDT Body Mass Index 35.35 10/08/2019 3:20 PM EDT documented in this encounter Progress Notes Bina Monique MD - 10/08/2019 3:30 PM EDT Hematology Clinic [facility] [address] HEMATOLOGY PATIENT EVALUATION Patient Active Problem List Diagnosis ??? 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 Biopsy at [place]. 09/06/19 LN Interpretation at [facility] Outside slide(s) labeled [id number], collection date 09/06/2019. Lymph node, supra clavicular [...] in consultaion from Dr. Jared Jones, at [facility] Minimal notes are available to but the patient presented with a LEFT supraclavicular mass. PCP office notes report that it was mobile, not painful except an occasional ache. She first noticed it in thefall 2018 and is grown since that time. Biopsy reportedly shows a B-cell lymphoma. We are waiting bio psy report and details. She did the [place] [employer] for [employer] at [place]. It was a delight to see Brian back in clinic today. Her Geovanny and her son been joined us via telephone because of coronavirus precautions. She returns after her echocardiogram, PET scan, and review of her pathology to discuss the results and plan. Brian states that she continues to feel [...] No signs or symptoms of an infection. PMHX: Hypertension Hyperlipidemia Hypothyroidism Anxiety - nicely [...] Outpatient Medications Marked as Taking for the 10/08/19 encounter (Office Visit) with Bina Monique MD [...] HISTORY Personal: to Geovanny. 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 Loves to cook and read and shop with friends and visit son. One son, Skyler, 36 yo in [place]. He is engaged! John jasso done Aug 2019! 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 Body surface area is 1.99 meters [...] for BRIAN IBANEZ ( ) as of 10/08/2019 17:30 Ref. Range 09/18/2019 10:54 WBC Latest Ref Range: 4.0 - 9.5 x10(3)/mcL 9.8 (H) RBC Latest Ref Range: 4.00 - 5.21 x10(6)/mcL 4.00 Hemoglobin Latest Ref Range: 11.7 - 15.5 gm/dL 12.1 Hematocrit Latest Ref Range: 35.7 - 45.8 % 36.1 MCV Latest Ref Range: 82.6 - 94.4 fL 90.3 MCH Latest Ref Range: 27.1 - 32.0 pg 30.3 MCHC Latest Ref Range: 31.7 - 35.0 gm/dL 33.5 RDWSD Latest Ref Range: 37.0 - 46.0 fL 43.2 RDWCV Latest Ref Range: 11.5 - 14.1 % 13.1 Platelets Latest Ref Range: 145 - 357 x10(3)/mcL 199 MPV Latest Ref Range: 7.6 - 12.9 fL 10.1 nRBC % Auto Latest Units: % 0.0 nRBC Abs Auto Latest Ref Range: 0.000 - 0.000 x10(3)/mcL 0.000 Neutr Abs (ANC) Latest Ref Range: 1.70 - 6.10 x10(3)/mcL 4.53 Neutrophils % Latest Units: % 46.1 Immature Gran % Latest Units: % 0.40 Lymphocytes % Latest Units: % 44.7 Monocytes % Latest Units: % 6.2 Eosinophils % Latest Units: % 2.0 Basophils % Latest Units: % 0.6 Lorraine Gran Abs Latest Ref Range: 0.00 - 0.04 x10(3)/mcL 0.04 Lymphocytes Abs Latest Ref Range: 0.9 - 3.2 x10(3)/mcL 4.4 (H) Monocyte Abs Latest Ref Range: 0.3 - 0.9 x10(3)/mcL 0.6 Eosinophils Abs Latest Ref Range: 0.0 - 0.4 x10(3)/mcL 0.2 Basophils Abs Latest Ref Range: 0.0 - 0.1 x10(3)/mcL 0.1 Sodium Latest Ref Range: 135 - 145 mmol/L 133 (L) Potassium Latest Ref Range: 3.5 - 5.0 mmol/L 3.7 Chloride Latest Ref Range: 98 - 107 mmol/L 98 CO2 Latest Ref Range: 22 - 31 mmol/L 23 Anion Gap Latest Ref Range: 5 - 15 mmol/L 12 BUN Latest Ref Range: 8 - 18 mg/dL 16 Creatinine Latest Ref Range: 0.70 - 1.20 mg/dL 0.73 eGFR Latest Ref Range: >=60 mL/min/1.73 m?? 83 eGFR Latest Ref Range: >=60 mL/min/1.73 m?? 96 Calcium Latest Ref Range: 8.5 - 10.5 mg/dL 9.4 Uric Acid Latest Ref Range: 2.5 - 6.5 mg/dL 4.2 Glucose Lvl Latest Ref Range: 65 - 199 mg/dL 110 Total Protein Latest Ref Range: 6.1 - 8.0 gm/dL 6.7 Albumin Latest Ref Range: 3.2 - 5.2 gm/dL 4.1 Total Bilirubin Latest Ref Range: 0.2 - 1.3 mg/dL 0.5 Alk Phos Latest Ref Range: 35 - 105 unit/L 86 AST Latest Ref Range: 0 - 30 unit/L 16 ALT Latest Ref Range: 0 - 30 unit/L 12 LDH Latest Ref Range: 110 - 220 unit/L 184 IgG Latest Ref Range: 700 - 1,600 mg/dL 563 (L) IgA Latest Ref Range: 70 - 400 mg/dL 43 (L) IgM Latest Ref Range: 40 - 230 mg/dL 31 (L) HIV-1/2 Ab and Ag Latest Ref Range: Negative Negative HepB Surface Ab Quant Latest Units: IU/L 3.6 HepB Surface Ab Unknown Negative HepB Surface Ag Latest Ref Range: Negative Negative Hep B Core Ab Latest Ref Range: Negative Negative Hepatitis C Ab Latest Ref Range: Negative Negative PATHOLOGY: 09/06/19 LN Interpretation at [facility] Outside slide(s) labeled [id number], collection date 09/06/2019. Lymph node, supra clavicular [...] CD19+/Cd20+/CD10 positive kappa restricted B cell population. [facility] Path 09/06/19 Path report in care everywhere. Reports follicular lymphoma grade 1-2. Immunoperoxidase stains were performed on this case to further characterize the lesion. ANTIBODY(CLONE)(BLOCK):RESULT CD3 (SP7, [employer]) (A3): Highlights background T-cells PAX-5 (1EW, [employer]) (A3): Highlights neoplastic cells BCL-2 Oncoprotein (124, [place]) (A3): Positive in neoplastic cells Ki67 (MIB-1) [...] bendamustine and rituximab followed by maintenance Rituxan. However, we are just at the start of the coronavirus epidemic, and I think the risk of treating her now in the face of this epidemic may pose greater risk thanfollowing is active surveillance, and treating her when the healthcare system and her medical risks are more stable/secure. She agreed with this and was relieved that she does not need treatment immediately. We discussed the potential transformation from indolent to aggressive lymphomas. This occurs at about a rate of 1 %/year. It is more common in grade 3A. I asked her to call us if [...] more than 1 to 2 weeks. I did my best to reassure her that at this time, I do not see cause for undue concern or worry. The next years will better define the anticipated course of her lymphoma as we follow it over time. I answered the questions and Geovanny Torres, and Skyler had. Overall, I think she will do quite well and I am optimistic for her prognosis. I will plan to see her back in [facility] in 3 months with CBC, CMP, and LDH and a provider appointment. Depending on how we are doing with the COVID-19 crisis at that time, we may choose to changes to of telephone follow-up. She understands this. Plan: ?? RTC in 3 mos in [place] ?? Cbc, cmp, ldh I discussed all of the above with the patient and all of her questions were answered. Support and counseling given as appropriate. This note was written or modified using [employer] voice recognition software. The final note was screened for mistakes. Please excuse any remaining errors. total time: time in counselling: Copy Jared Anna MD . documented in this encounter Plan of Treatment Upcoming Encounters Date Type Specialty Care Team Description 06/16/2022 Office Visit Hematology and Oncology Jackie Dillon, TECHNICAL ASST [facility] HEMATOLOGY/[place], [place] [address] (Wo rk) 06/16/2022 Infusion Hematology and Oncology documented as of this encounter Visit Diagnoses Diagnosis 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 documented in this encounter Care Teams Material Assembler Relationship Specialty Start Date End Date Jared Anna MD PCP - General 06/02/10 02/08/21 documented as of this encounter
--- OUTSIDE RECORDS SUMMARY | 2022-05-21 01:04 | XMS_ITS | Encounter Summary ---
:1950 Author Organization [facility] [place] [address] Care Team Providers Name Role Phone Jared Anna MD Primary Care Provider Encounter Details Date Type Department Care Team Description 02/11/2020 Hospital Encounter Hematology and Grade 2 follicular Oncology [place] [facility] [place] [address] Social History Tobacco Use Types Packs/Day [...] Office Visit Hematology and Oncology Jackie Dillon, [employer] HEMATOLOGY/ONCOL SHAD[place] DEPT. [place], [place] [address] (Wo rk) 06/16/2022 Infusion Hematology and Oncology documented as of this encounter Procedures Procedure Name Priority Date/Time Associated Comments Diagnosis HEMOGRAM STAT 02/11/2020 10:38 Grade 2 follicular Resul ts for this AM EDT lymphoma of lymph procedure are in nodes of multiple the result s regions section. DIFFERENTIAL, STAT 02/11/2020 10:38 Grade 2 follicular Resu lts for this AUTOMATED AM EDT lymphoma of lymph procedure are in nodes of multiple the result s regions section. HC CBC,PLT & AUTO DIFF STAT 02/11/2020 10:38 Grade 2 follic ular AM EDT lymphoma of lymph nodes of multiple regions HC VENIPUNCTURE STAT 02/11/2020 10:38 Grade 2 follicular Re sults for this AM EDT lymphoma of lymph procedure are in nodes of multiple the result s regions section. COMPREHENSIVE STAT 02/11/2020 10:38 Grade 2 follicular Resu lts for this METABOLIC PANEL AM EDT lymphoma of lymph procedu re are in (NON-FASTING) nodes of multiple the resul ts regions section. documented in this encounter Results Differential, Automated (02/11/2020 10:38 AM EDT) P athologist Signature Neutrophils % 40.7 % [facility] Neutr Abs (ANC) 2.45 1.70 - [facility] 6.10 [facility] x10(3)/[facility] LABORATORY Lymphocytes % 47.8 % [facility] Lymphocytes Abs 2.9 0.9 - 3.2 [facility] x10(3)/[facility] LABORATORY Monocytes % 7.6 % [facility] Monocyte Abs 0.5 0.3 - 0.9 [facility] x10(3)/[facility] LABORATORY Eosinophils % 2.8 % [facility] Eosinophils Abs 0.2 0.0 - 0.4 [facility] x10(3)/[facility] LABORATORY Basophils % 0.8 % [facility] Basophils Abs 0.0 0.0 - 0.1 [facility] x10(3)/[facility] LABORATORY Immature Gran % 0.30 % [facility] Comment: Immature granulocytes(IG's)percentage an d absolute count will include metamyelocytes, myelocytes, and promyelo cytes. Blood smears from CBCs yielding IG's will be scanned manually for concor dance. If this scan disagrees with the automated IG or if promyelocytes are not ed, a manual differential will be performed. Lorraine Gran Abs 0.02 0.00 - 0.04 x10(3)/[facility] Specimen Anatomical Collection Method Collection Time Receive d Time (Source) Location / / Volume Laterality Blood specimen 02/11/2020 10:38 0 (specimen) AM EDT 10:42 AM EDT Resulting Agency Comment Spec In Lab Bina Monique MD HEMATOLOGY ORDERABLES Performing Organization Address City/State/[place] [address] (ABNORMAL) Hemogram (02/11/2020 10:38 AM EDT) Analysis Performed At Patho logist Time Signature WBC 6.0 4.0 - 9.5 [facility] x10(3)/[facility] LABORATORY RBC 3.76 (L) 4.00 - [facility] 5.21 [facility] x10(6)/[facility] LABORATORY Hemoglobin 11.7 11.7 - [facility] 15.[facility] gm/dL [facility] Hematocrit 35.4 (L) 35.7 - [facility] 45.8 % [facility] MCV 94.1 82.6 - [facility] 94.4 fL [facility] MCH 31.1 27.1 - [facility] 32.0 pg [facility] MCHC 33.1 31.7 - [facility] 35.0 gm/dL [facility] Platelets 159 145 - 357 [facility] x10(3)/[facility] LABORATORY RDWSD 43.3 37.0 - [facility] 46.0 [facility] LABORATORY RDWCV 12.5 11.5 - [facility] 14.1 % [facility] MPV 10.0 7.6 - 12.9 [facility] LABORATORY nRBC % Auto 0.0 % [facility] nRBC Abs Auto 0.000 0.000 - [facility] 0.000 [facility] x10(3)/[facility] LABORATORY Specimen Anatomical Collection Method Collection Time Receive d Time (Source) Location / / Volume Laterality Blood specimen 02/11/2020 10:38 0 (specimen) AM EDT 10:42 AM EDT Resulting Agency Comment Spec In Lab Bina Monique MD HEMATOLOGY ORDERABLES Performing Organization Address City/State/[place] [address] (ABNORMAL) Comprehensive metabolic panel (non-fasting) (02/11/2020 10:38 AM EDT) P athologist Signature Glucose Lvl 108 65 - 199 [facility] mg/dL [facility] Comment: Diabetes: >=200 mg/dL plus symp toms BUN 23 (H) 8 - 18 mg/dL [facility] Creatinine 0.76 0.70 - 1.20 mg/dL [facility] Sodium 143 135 - 145 mmol/L [facility] Potassium 4.1 3.5 - 5.0 mmol/L [facility] Comment: Please note: ??Patients with WBC >100,00 0 may have falsely elevated Potassium levels. ??For accurate Potassium quantif ication in these patients send serum separator tube (gold top) for subsequent determinations. ??Contact the Clinical Chemistry Laboratory if there are any qu estions. Chloride 104 98 - 107 mmol/L [facility] CO2 25 22 - 31 mmol/L [facility] Anion Gap 14 5 - 15 mmol/L [facility] Calcium 9.5 8.5 - 10.5 mg/dL [facility] Total Protein 6.2 6.1 - 8.0 gm/dL [facility] Albumin 4.3 3.2 - 5.2 gm/dL [facility] AST 12 0 - 30 unit/L [facility] ALT 12 0 - 30 unit/L [facility] Alk Phos 78 35 - 105 unit/L [facility] Total Bilirubin 0.4 0.2 - 1.3 mg/dL [facility] Estimated GFR 79 >=60 mL/min/1.73 m?? [facility] Comment: The eGFR was calculated using the CKD-EP I equation. As with all creatinine based estimates of kidney function, eGFR values calculated with the CKD-EPI equation are not accurate in patients wi th acute kidney failure, extremes of body mass or the acutely ill. http://[employer]/[facility] eGFR 91 >=60 mL/min/1.73 m?? [facility] Comment: The eGFR was calculated using the CKD-EP I equation. As with all creatinine based estimates of kidney function, eGFR values calculated with the CKD-EPI equation are not accurate in patients wi th acute kidney failure, extremes of body mass or the acutely ill. http://[employer]/[facility] Specimen Anatomical Collection Method Collection Time Receive d Time (Source) Location / / Volume Laterality Blood specimen 02/11/2020 10:38 0 (specimen) AM EDT 10:42 AM EDT Resulting Agency Comment Spec In Lab Bina Monique MD CHEMISTRY ORDERABLES Performing Organization Address City/State/[place] [address] Lactate Dehydrogenase (02/11/2020 10:38 AM EDT) P athologist Signature LDH 170 110 - 220 [facility] unit/L [facility] Specimen Anatomical Collection Method Collection Time Receive d Time (Source) Location / / Volume Laterality Blood specimen 02/11/2020 10:38 0 (specimen) AM EDT 10:42 AM EDT Resulting Agency Comment Spec In Lab Bina Monique MD CHEMISTRY ORDERABLES Performing Organization Address City/State/ZIP Code Phon e Number [place] [id number] documented in this encounter Visit Diagnoses Diagnosis 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 documented in this encounter Care Teams Trolley Car Mechanic Relationship Specialty Start Date End Date Jared Anna MD PCP - General 06/02/10 02/08/21 documented as of this encounter
--- OUTSIDE RECORDS SUMMARY | 2022-05-21 01:04 | XMS_ITS | Encounter Summary ---
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 [address] [place] [address] Referral ID Status Reason Start Date Expiration Date Visits V isits Requested Authorized [id number] Closed Specialty 02/02/2020 07/31/2020 1 1 Service Requested Encounter Details Date Type Department Care Team Description 02/11/[address] Scan at [facility] [place], Grade 2 follicular [facility] Bina Smith MD lymphoma of lymph Drive [facility] nodes of multiple [place], [place] [address] HEMATOLOGY/ONCOLOG [phone] Y DEPT. [place], [place] [address] Social History Tobacco Use Types [...] Office Visit Hematology and Oncology Jackie Dillon, COMPUTER LAB PAR[employer] PROFESSIONAL [facility] ER HEMATOLOGY/ONCOL SHADIA DEPT. [place], [place] [address] (Wo rk) 06/16/2022 Infusion Hematology and Oncology documented as of this encounter Procedures Procedure Name Priority Date/Time Associated Diagnosis Comme nts CT NECK SOFT TISSUE Routine 02/11/2020 2:06 PM Grade 2 follicu lar Results for this W CONTRAST EDT lymphoma of lymph procedure are in nodes of multiple the result s regions section. CT CHEST ABDOMEN Routine 02/11/2020 2:06 PM Grade 2 follicular Results for this [...] For questions regarding this report, please contact [facility] number below. ? Electronically signed by: Uri metcalf [facility] ([phone]), at 02/11/2020 5:09 PM Narrative 02/11/2020 5:09 [...] cardiac size. No thoracic aortic aneurysm. Lymph nodes/Mediastinum/Virgie: Enlarged l ymph nodes throughout bilateral axillae, supraclavicular regions, mediastinum, an d virgie. Some of these have enlarged since [...] 3 1 x 60 mm Procedure Note Maeder, Uri E, MD - 02/11/2020Format ting of this note [...] cardiac size. No thoracic aortic aneurysm. Lymph nodes/Mediastinum/Virgie: Enlarged l ymph nodes throughout bilateral axillae, supraclavicular regions, mediastinum, an d virgie. Some of these have enlarged since [...] contact e number below. Electronically signed by: Uri metcalf, [facility] ([phone]), at 02/11/2020 5:09 PM Bina Monique MD IMG CT ORDERABLES documented in this encounter Visit Diagnoses Diagnosis 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 documented in this encounter Administered Medications Inactive Administered Medications - up to 3 most recent administrations Medication Order MAR Action Action Date Dose Rate Site iohexoL (OMNIPAQUE) 350 mg/mL Given 02/11/2020 2:06 PM EDT 105 m Ls solution 0-200 mL 0-200 mL, Intravenous, ONCE PRN, 1 dose, Starting on Tue02/11/20 at 1406, Until Tue02/11/20 at 1406, Per Protocol, Warning Vesicant/Irritant Medication , Radiology Contrast, Routine iohexoL (OMNIPAQUE) 350 mg/mL solution 0-50 Given 02/11/2020 2:06 PM EDT 50 mLs mL 0-50 mL, Oral, ONCE PRN, 1 dose, Starting on Tue02/11/20 at 1406, Until Tue02/11/20 at 1406, Per Protocol, Warning Vesicant/Irritant Medication , Radiology Contrast, Routine documented in this encounter Care Teams Assistant Director Of Public Works Relationship Specialty Start Date End Date Jared Anna MD PCP - General 06/02/10 02/08/21 documented as of this encounter
--- OUTSIDE RECORDS SUMMARY | 2022-05-21 01:04 | XMS_ITS | Encounter Summary ---
:1950 Author Organization [facility] [place] [address] Care Team Providers Name Role Phone Jared Anna MD Primary Care Provider Reason for Referral Diagnostic Test (Routine) - Closed Specialty Diagnoses / Procedures Referred By Contact Refer red To Contact Cardiology Diagnoses Malignant lymphoma, undifferentiated cell, non-Burkitt's Bina Monique [facility] Non-Inv Card Lab Procedures Echocardiogram Transthoracic(KATHRIN) [facility] HEMATOLOGY/ONCOLOGY [place], [place] DEPT. [phone] [place] [address] Referral ID Status Reason Start Date Expiration Date Visits V isits Requested Authorized [id number] Closed Specialty 09/17/2019 09/16/2020 1 1 Service Requested Reason for Visit Diagnostic Test (Routine) - Closed Specialty Diagnoses / Procedures Referred By Contact Refer red To Contact Cardiology Diagnoses Malignant lymphoma, undifferentiated cell, non-Burkitt's Bina Monique [facility] Non-Inv Card Lab Procedures Echocardiogram Transthoracic(KATHRIN) [facility] HEMATOLOGY/ONCOLOGY [place], [place] DEPT. [id number] [place] [address] Referral ID Status Reason Start Date Expiration Date Visits V isits Requested Authorized [id number] Closed Specialty 09/17/2019 09/16/2020 1 1 Service Requested Encounter Details Date Type Department Care Team Description 10/04/2019 Hospital Non-Invasive [place], Malignant lymph janell, Encounter Cardiology Lab Bina Smith MD undifferentiated cell, [facility] HEMATOLOGY/ONCOL [address] [facility] DEPT. [place], [place] [address] [phone] Social History Tobacco Use Types Packs/Day Years [...] Office Visit Hematology and Oncology Jackie Dillon, [employer] [facility] HEMATOLOGY/ONCOL OGY DEPT. [place], [place] [address] (Wo rk) 06/16/2022 Infusion Hematology and Oncology documented as of this encounter Procedures Procedure Name Priority Date/Time Associated Diagnosis Comme nts ECHOCARDIOGRAM Routine 10/04/2019 1:40 Malignant lymphoma, Res ults for this COMPLETE PM EDT undifferentiated cell, proce marianoe are in non-Burkitt's the results section. documented in this encounter Results ECHOCARDIOGRAM COMPLETE (10/04/2019 1:40 PM EDT) P athologist Signature EF 67 HEARTLAB SYSTEM Anatomical Region Laterality Modality Other Specimen (Source) Anatomical Location Collection Method / Collectio n Time Received Time / Laterality Volume 10/04/2019 Narrative 10/04/2019 1:57 PM EDT Procedure: ?Transthoracic Echocardiogram Patient: ?SHAMAR FRANCISCO C ?(Age): 1950(69y) Med Rec#: ? [id number] ?Sex: ?F ? [place] ? [facility] [place]t / Wt: ??160(cm)/89(kg) Pt. Loc: ?Echo Lab ?BSA: ?1.92 Study Date: ?? 10/04/2019 ?Pt. Type: Outpatient Tape: ? Referring: ELKIN Reading: David Aguilar ([id number]) Ux Design Manager: Evangelista Gutierrez, [facility] Diagnosis: *Other specified types of non-Hodgkin [...] Vmax ?0.72 ? m/sec ? MV deceleration [id number] ?msec ? MV A-wave Vmax ?1.02 ? [...] ? Pulmonic Valve/Qp:Qs ?Value ?Units (Range) ? [place] end-diastolic Vma0.89 ? m/sec ? Wall Motion: Segment Name ?Rest ? Base-Anteroseptal ?? Normal ? Base-Anterior ? Normal ? Base-Anterolateral ??Normal ? Base-Posterolateral Normal ? Base-Inferior ? Normal ? Base-Inferoseptal ?? Normal ? Mid-Anteroseptal ?Normal ? Mid-Anterior ?Normal ? Mid-Anterolateral ?? Normal ? Mid-Posterolateral ??Normal ? Mid-Inferior ?Normal ? Mid-Inferoseptal ?Normal ? Jones-Septal ? Normal ? Jones-Anterior ? Normal ? Jones-Lateral ?Normal ? Jones-Inferior ? Normal ? Jones-Tip ?Normal ? This report has been electronically sign ed by: _ David Aguilar MD ? 10/04/2019 13:56 :59 Images reviewed and interpretation jessica ruffin [facility] Cardiac Ultrasound Laboratory Procedure Note David Aguilar MD - 10/04/2019Formattin g of this note might be different from the original. Procedure: Transthoracic Echocardiogram Patient: SHAMAR Gonzalez TIBURCIO(Age): [birth year](69y) Med Rec#: [id number] Sex: F [place] [facility] Ht / Wt: 160(cm)/89(kg) Pt. Loc: Echo Lab BSA: 1.92 Study Date: 10/04/2019 Pt. Type: Outpati ent Tape: Referring: ELKIN Reading: David Aguilar ([id number]) Ux Design Manager: Evangelista Gutierrez AALIYAH Diagnosis: *Other specified types of non-Hodgkin l [...] MV E-wave Vmax 0.72 m/sec MV deceleration [id number] msec MV A-wave Vmax 1.02 m/sec MV E:A ratio 0.7 ratio LV septal e' Vmax 0.06 m/sec LV lateral e' Vmax 0.08 m/sec LV average e' Vmax 0.07 m/sec LV E:e' septal ratio11.97 ratio LV E:e' lateral rati8.98 ratio LV average E:e' rati10.26 ratio Aortic Valve Value Units (Range) AR PHT 953 msec AR peak gradient 70 mmHg Pulmonic Valve/Qp:Qs Value Units (Range) [place] end-diastolic Vma0.89 m/sec Wall Motion: Segment Name Rest Base-Anteroseptal Normal Base-Anterior Normal Base-Anterolateral Normal Base-Posterolateral Normal Base-Inferior Normal Base-Inferoseptal Normal Mid-Anteroseptal Normal Mid-Anterior Normal Mid-Anterolateral Normal Mid-Posterolateral Normal Mid-Inferior Normal Mid-Inferoseptal Normal Jones-Septal Normal Jones-Anterior Normal Jones-Lateral Normal Jones-Inferior Normal Jones-Tip Normal This report has been electronically sign ed by: _ David Aguilar MD 10/04/2019 13:56:59 [facility] Bina Monique MD ECHO ORDERABLES documented in this encounter Visit Diagnoses Diagnosis Malignant lymphoma, undifferentiated rosalina l, non-Burkitt's Other malignant lymphomas, unspecified s ite, extranodal and solid organ sites documented in this encounter Care Teams Zinc Plater Relationship Specialty Start Date End Date Jared Anna MD PCP - General 06/02/10 02/08/21 documented as of this encounter
[2022-05-21] MEDS: Normal Saline Flush 10 ML SYR IVP (11:39)
[2022-05-21] MEDS: Heparin 500 UNITS/5 ML SYRINGE IV (11:40)
== END 2022-06-09 23:59 | disposition home or self-care (01) ==
LOC: INF 00:59
PROVIDERS: Visit Provider Internal Medicine Hematology & Oncology
DX: C82.90 Follicular lymphoma, unspecified, unspecified site (principal); Z45.2 Encounter for adjustment and management of vascular access device
CPT/HCPCS: 96372; 96523; Q0221

== ENCOUNTER 2022-08-02 02:14 | Outpatient (RCR) | payer OTHER, SELFPAY ==
[2022-08-02] MEDS: Normal Saline Flush 10 ML SYR IVP (11:31)
[2022-08-02] MEDS: Heparin 500 UNITS/5 ML SYRINGE IV (11:32)
[2022-08-02 11:39] LABS: Absolute Basophil Count 0.04 10^3/uL (0.0-0.2); Absolute Eosinophil Count 0.18 10^3/uL (0.0-0.7); Absolute Lymphocyte Count 1.01 10^3/uL (1.2-3.4); Absolute Monocyte Count 0.48 10^3/uL (0.1-0.8); Eosinophils % 4.7; HCT 30.1 % (36.0-46.0); HGB 10.3 g/dL (11.2-15.7); Immature Grans % 5.2; Lymphocytes % 26.5; MCH 32.6 pg (27.0-33.0); MCHC 34.2 % (32.0-36.0); MCV 95 fL (80-95); Monocytes % 12.6; Platelet Count 213 10^3/uL (130-400); RBC 3.16 10^6/uL (3.93-5.22); RDW 12.8 % (11.7-14.6); RDW-SD 44.1 fL; WBC 3.81 10^3/uL (4.4-10.8)
[2022-08-02 11:41] LABS: Absolute Neutrophil Count 1.91 10^3/uL (1.2-6.7)
[2022-08-02 11:58] LABS: ALT 21 U/L (14-59); AST 20 U/L (15-37); Alkaline Phosphatase 103 U/L (46-116); Anion Gap 6.8 mmol/L (3-11); BUN 25 mg/dL (7-18); Bilirubin, Total 0.5 mg/dL (0.2-1.0); CO2 29.2 mmol/L (21.0-32.0); CREATININE 0.9 mg/dL (0.55-1.02); Calcium 9.1 mg/dL (8.5-10.1); Chloride 104 mmol/L (98-107); Estimated GFR 67.08 (mL/min/1.73m2); Glucose 116 mg/dL (74-106); LDH 229 U/L (81-234); Potassium 4.2 mmol/L (3.5-5.1); Sodium 140 mmol/L (136-145); Total Protein 6.3 g/dL (6.4-8.2)
[2022-08-02 12:06] LABS: Diff Comment Agrees w/ Instrument; RBC Morphology Normal
[2022-08-02 12:10] LABS: Iron 77 ug/dL (50-170); Total Iron Binding Capacity 368 ug/dL (250-450); Transferrin Sat 21 % (15-50)
[2022-08-02 12:23] LABS: Ferritin 50 ng/mL (8-252)
== END 2022-08-10 23:59 | disposition home or self-care (01) ==
LOC: INF 02:14
PROVIDERS: Visit Provider Internal Medicine Hematology & Oncology
DX: C82.18 Follicular lymphoma grade II, lymph nodes of multiple sites (principal); Z45.2 Encounter for adjustment and management of vascular access device
CPT/HCPCS: 36591; 80053; 82728; 83540; 83550; 83615; 85025

== ENCOUNTER 2022-09-21 02:00 | Outpatient (RCR) | payer OTHER, SELFPAY ==
[2022-09-21] MEDS: Heparin 500 UNITS/5 ML SYRINGE IV (15:16)
[2022-09-21] MEDS: Normal Saline Flush 10 ML SYR IVP (15:16)
[2022-09-21 15:34] LABS: Abs Immature Grans 0.02 10^3/uL (0.0-0.06); Absolute Basophil Count 0.03 10^3/uL (0.0-0.2); Absolute Eosinophil Count 0.13 10^3/uL (0.0-0.7); Absolute Lymphocyte Count 1.27 10^3/uL (1.2-3.4); Absolute Monocyte Count 0.48 10^3/uL (0.1-0.8); Basophils % 0.7; Eosinophils % 3.1; HCT 30.1 % (36.0-46.0); HGB 10.2 g/dL (11.2-15.7); Immature Grans % 0.5; MCH 32.1 pg (27.0-33.0); MCHC 33.9 % (32.0-36.0); MCV 95 fL (80-95); MPV 10.4 fL (8.0-11.0); Monocytes % 11.3; Neutrophils % 54.4; Platelet Count 205 10^3/uL (130-400); RBC 3.18 10^6/uL (3.93-5.22); WBC 4.23 10^3/uL (4.4-10.8)
[2022-09-21 16:09] LABS: Iron 55 ug/dL (50-170); Total Iron Binding Capacity 324 ug/dL (250-450); Transferrin Sat 17 % (15-50)
[2022-09-21 16:12] LABS: ALT 24 U/L (14-59); AST 17 U/L (15-37); Albumin 3.9 g/dL (3.4-5.0); Alkaline Phosphatase 103 U/L (46-116); Anion Gap 10.9 mmol/L (3-11); BUN 24 mg/dL (7-18); Bilirubin, Total 0.3 mg/dL (0.2-1.0); CO2 27.1 mmol/L (21.0-32.0); CREATININE 0.8 mg/dL (0.55-1.02); Calcium 9.1 mg/dL (8.5-10.1); Chloride 102 mmol/L (98-107); Estimated GFR 77.27 (mL/min/1.73m2); Glucose 123 mg/dL (74-106); LDH 222 U/L (81-234); Potassium 3.6 mmol/L (3.5-5.1); Sodium 140 mmol/L (136-145); Total Protein 6.5 g/dL (6.4-8.2)
[2022-09-21 16:41] LABS: Ferritin 54 ng/mL (8-252)
== END 2022-10-08 23:59 | disposition home or self-care (01) ==
LOC: INF 02:00
PROVIDERS: Visit Provider Internal Medicine Hematology & Oncology
DX: C82.18 Follicular lymphoma grade II, lymph nodes of multiple sites (principal); Z45.2 Encounter for adjustment and management of vascular access device
CPT/HCPCS: 36591; 80053; 82728; 83540; 83550; 83615; 85025

== ENCOUNTER 2022-11-18 02:19 | Outpatient (RCR) | payer OTHER, SELFPAY ==
[2022-11-18] MEDS: Heparin 500 UNITS/5 ML SYRINGE IV (15:12)
[2022-11-18] MEDS: Normal Saline Flush 10 ML SYR IVP (15:12)
[2022-11-18 15:29] LABS: Abs Immature Grans 0.12 10^3/uL (0.0-0.06); Absolute Basophil Count 0.02 10^3/uL (0.0-0.2); Absolute Eosinophil Count 0.09 10^3/uL (0.0-0.7); Absolute Lymphocyte Count 0.92 10^3/uL (1.2-3.4); Absolute Monocyte Count 0.42 10^3/uL (0.1-0.8); Absolute Neutrophil Count 2.56 10^3/uL (1.2-6.7); Basophils % 0.5; Eosinophils % 2.2; HGB 10.8 g/dL (11.2-15.7); Immature Grans % 2.9; Lymphocytes % 22.3; MCH 32.6 pg (27.0-33.0); MCHC 34.8 % (32.0-36.0); MCV 94 fL (80-95); Monocytes % 10.2; Neutrophils % 61.9; Platelet Count 198 10^3/uL (130-400); RBC 3.31 10^6/uL (3.93-5.22); RDW 13.1 % (11.7-14.6); RDW-SD 45.1 fL; WBC 4.13 10^3/uL (4.4-10.8)
[2022-11-18 15:52] LABS: ALT 31 U/L (14-59); AST 23 U/L (15-37); Albumin 3.8 g/dL (3.4-5.0); Alkaline Phosphatase 99 U/L (46-116); Anion Gap 5.9 mmol/L (3-11); BUN 17 mg/dL (7-18); Bilirubin, Total 0.5 mg/dL (0.2-1.0); CO2 29.1 mmol/L (21.0-32.0); CREATININE 0.9 mg/dL (0.55-1.02); Calcium 8.9 mg/dL (8.5-10.1); Chloride 99 mmol/L (98-107); Estimated GFR 67.08 (mL/min/1.73m2); Glucose 95 mg/dL (74-106); LDH 243 U/L (81-234); Potassium 3.5 mmol/L (3.5-5.1); Sodium 134 mmol/L (136-145); TSH 2.13 uIU/mL (0.36-3.74); Total Protein 6.3 g/dL (6.4-8.2)
[2022-11-18 15:57] LABS: Iron 93 ug/dL (50-170); Total Iron Binding Capacity 339 ug/dL (250-450); Transferrin Sat 27 % (15-50)
[2022-11-18 16:35] LABS: Ferritin 48 ng/mL (8-252); Folate 13.1 ng/mL (8.6-20.0); Vitamin B12 377 pg/mL (193-986)
[2022-11-19 12:51] LABS: Albumin 68.1 % (55.8-66.1); Albumin g/dL 4.1 g/dL (3.6-5.2)
[2022-11-19 19:13] LABS: Erythropoietin 23.4 mIU/mL (2.6 - 18.5)
== END 2022-12-08 23:59 | disposition home or self-care (01) ==
LOC: INF 02:19
PROVIDERS: Visit Provider Internal Medicine Hematology & Oncology
DX: Z45.2 Encounter for adjustment and management of vascular access device (principal); C82.18 Follicular lymphoma grade II, lymph nodes of multiple sites; D64.9 Anemia, unspecified; R53.83 Other fatigue
CPT/HCPCS: 36591; 80053; 82668; 82607; 82728; 82746; 83540; 83550; 83615; 84165; 84443; 85025

== ENCOUNTER 2023-01-13 02:52 | Outpatient (RCR) | payer OTHER, SELFPAY ==
[2023-01-13] MEDS: Heparin 500 UNITS/5 ML SYRINGE IV (08:53)
[2023-01-13] MEDS: Normal Saline Flush 10 ML SYR IVP (08:53)
[2023-01-13 09:28] LABS: Abs Immature Grans 0.08 10^3/uL (0.0-0.06); Absolute Basophil Count 0.03 10^3/uL (0.0-0.2); Absolute Eosinophil Count 0.13 10^3/uL (0.0-0.7); Absolute Lymphocyte Count 1.08 10^3/uL (1.2-3.4); Absolute Monocyte Count 0.45 10^3/uL (0.1-0.8); Absolute Neutrophil Count 2.89 10^3/uL (1.2-6.7); Basophils % 0.6; Eosinophils % 2.8; HCT 31.4 % (36.0-46.0); HGB 10.9 g/dL (11.2-15.7); Immature Grans % 1.7; Lymphocytes % 23.2; MCH 32.7 pg (27.0-33.0); MCHC 34.7 % (32.0-36.0); MCV 94 fL (80-95); MPV 10.1 fL (8.0-11.0); Monocytes % 9.7; Platelet Count 239 10^3/uL (130-400); RBC 3.33 10^6/uL (3.93-5.22); RDW 13.2 % (11.7-14.6); RDW-SD 45.2 fL; WBC 4.66 10^3/uL (4.4-10.8)
[2023-01-13 09:46] LABS: ALT 22 U/L (14-59); AST 20 U/L (15-37); Albumin 3.8 g/dL (3.4-5.0); Alkaline Phosphatase 93 U/L (46-116); Anion Gap 9.8 mmol/L (3-11); BUN 18 mg/dL (7-18); Bilirubin, Total 0.7 mg/dL (0.2-1.0); CO2 28.2 mmol/L (21.0-32.0); CREATININE 0.8 mg/dL (0.55-1.02); Chloride 99 mmol/L (98-107); Estimated GFR 77.27 (mL/min/1.73m2); Glucose 120 mg/dL (74-106); LDH 264 U/L (81-234); Potassium 4.2 mmol/L (3.5-5.1); Sodium 137 mmol/L (136-145); Total Protein 6.6 g/dL (6.4-8.2)
[2023-01-13 09:47] LABS: Iron 81 ug/dL (50-170); Total Iron Binding Capacity 334 ug/dL (250-450); Transferrin Sat 24 % (15-50)
[2023-01-13 10:11] LABS: Ferritin 63 ng/mL (8-252)
== END 2023-02-07 23:59 | disposition home or self-care (01) ==
LOC: INF 02:52
PROVIDERS: Visit Provider Internal Medicine Hematology & Oncology
DX: C82.18 Follicular lymphoma grade II, lymph nodes of multiple sites (principal); D64.9 Anemia, unspecified
CPT/HCPCS: 36591; 80053; 82728; 83540; 83550; 83615; 85025

== ENCOUNTER 2023-03-02 03:58 | Outpatient (RCR) | payer OTHER, SELFPAY ==
[2023-03-02 10:52] LABS: Abs Immature Grans 0.04 10^3/uL (0.0-0.06); Absolute Basophil Count 0.02 10^3/uL (0.0-0.2); Absolute Eosinophil Count 0.09 10^3/uL (0.0-0.7); Absolute Lymphocyte Count 1.14 10^3/uL (1.2-3.4); Absolute Monocyte Count 0.53 10^3/uL (0.1-0.8); Absolute Neutrophil Count 2.81 10^3/uL (1.2-6.7); Basophils % 0.4; Eosinophils % 1.9; HCT 31.6 % (36.0-46.0); HGB 10.6 g/dL (11.2-15.7); Immature Grans % 0.9; Lymphocytes % 24.6; MCH 32.3 pg (27.0-33.0); MCHC 33.5 % (32.0-36.0); MCV 96 fL (80-95); MPV 9.7 fL (8.0-11.0); Monocytes % 11.4; Neutrophils % 60.8; Platelet Count 197 10^3/uL (130-400); RBC 3.28 10^6/uL (3.93-5.22); RDW 12.7 % (11.7-14.6); RDW-SD 44.9 fL; WBC 4.63 10^3/uL (4.4-10.8)
[2023-03-02] MEDS: Normal Saline Flush 10 ML SYR IVP (11:09)
[2023-03-02] MEDS: Heparin 500 UNITS/5 ML SYRINGE IV (11:09)
[2023-03-02 11:32] LABS: ALT 19 U/L (14-59); AST 17 U/L (15-37); Albumin 3.6 g/dL (3.4-5.0); Alkaline Phosphatase 93 U/L (46-116); Anion Gap 7.6 mmol/L (3-11); BUN 19 mg/dL (7-18); Bilirubin, Total 0.6 mg/dL (0.2-1.0); CO2 28.4 mmol/L (21.0-32.0); CREATININE 0.9 mg/dL (0.55-1.02); Calcium 8.9 mg/dL (8.5-10.1); Chloride 102 mmol/L (98-107); Estimated GFR 67.08 (mL/min/1.73m2); Ferritin 71 ng/mL (8-252); Glucose 115 mg/dL (74-106); LDH 264 U/L (81-234); Potassium 3.8 mmol/L (3.5-5.1); Sodium 138 mmol/L (136-145); Total Protein 6.4 g/dL (6.4-8.2)
[2023-03-02 11:55] LABS: Iron 71 ug/dL (50-170); Total Iron Binding Capacity 294 ug/dL (250-450); Transferrin Sat 24 % (15-50)
[2023-03-02 12:18] LABS: Vitamin B12 1824 pg/mL (193-986)
== END 2023-03-10 23:59 | disposition home or self-care (01) ==
LOC: INF 03:58
PROVIDERS: PCP Nurse Practitioner Family; Visit Provider Internal Medicine Hematology & Oncology
DX: C82.18 Follicular lymphoma grade II, lymph nodes of multiple sites (principal); D64.9 Anemia, unspecified; Z45.2 Encounter for adjustment and management of vascular access device
CPT/HCPCS: 36591; 80053; 82607; 82728; 83540; 83550; 83615; 85025

== ENCOUNTER 2023-05-25 02:00 | Outpatient (RCR) | payer OTHER, SELFPAY ==
[2023-05-19] MEDS: Normal Saline Flush 10 ML SYR IVP (08:57)
[2023-05-19 09:43] LABS: Albumin 2.3 g/dL (3.4-5.0); BUN 12 mg/dL (7-18); Bilirubin, Total 0.4 mg/dL (0.2-1.0); Calcium 9.1 mg/dL (8.5-10.1); Estimated GFR 58.75 (mL/min/1.73m2); Glucose 101 mg/dL (74-106); Total Protein 6.4 g/dL (6.4-8.2)
[2023-05-19 09:44] LABS: ALT 32 U/L (14-59); AST 36 U/L (15-37); Alkaline Phosphatase 59 U/L (46-116); Anion Gap 7.1 mmol/L (3-11); CO2 27.9 mmol/L (21.0-32.0); Chloride 101 mmol/L (98-107); Ferritin 1382 ng/mL (8-252); LDH 283 U/L (81-234); Magnesium 2.1 mg/dL (1.8-2.4); Potassium 4.2 mmol/L (3.5-5.1); Sodium 136 mmol/L (136-145)
[2023-05-19 11:49] LABS: Absolute Eosinophil Count 0.05 10^3/uL (0.0-0.7); Absolute Lymphocyte Count 0.29 10^3/uL (1.2-3.4); Absolute Monocyte Count 0.36 10^3/uL (0.1-0.8); Absolute Neutrophil Count 2.34 10^3/uL (1.2-6.7); Eosinophils % 1.5; HCT 27.6 % (36.0-46.0); HGB 9.5 g/dL (11.2-15.7); Lymphocytes % 8.9; MCH 30.4 pg (27.0-33.0); MCHC 34.4 % (32.0-36.0); MCV 89 fL (80-95); MPV 9.7 fL (8.0-11.0); Neutrophils % 71.6; Platelet Count 223 10^3/uL (130-400); RBC 3.12 10^6/uL (3.93-5.22); RDW 13.4 % (11.7-14.6); RDW-SD 43.1 fL; WBC 3.27 10^3/uL (4.4-10.8)
[2023-05-19 11:50] LABS: Abs Immature Grans 0.23 10^3/uL (0.0-0.06); Diff Comment Diff Reviewed
[2023-05-20 10:29] LABS: Haptoglobin 534 mg/dL (32-197); IgA <13 mg/dL (85-499); IgG 538 mg/dL (610-1616); IgM <12 mg/dL (35-242)
[2023-05-22 17:20] LABS: Parvovirus B19 By Rapid PCR, P Negative (Negative); Source PLASMA
[2023-05-25] MEDS: Normal Saline Flush 10 ML SYR IVP (07:51)
[2023-05-25 08:25] LABS: Abs Immature Grans 0.17 10^3/uL (0.0-0.06); Absolute Basophil Count 0.05 10^3/uL (0.0-0.2); Absolute Eosinophil Count 0.13 10^3/uL (0.0-0.7); Absolute Lymphocyte Count 0.76 10^3/uL (1.2-3.4); Absolute Monocyte Count 0.54 10^3/uL (0.1-0.8); Absolute Neutrophil Count 1.79 10^3/uL (1.2-6.7); Basophils % 1.5; Eosinophils % 3.8; HCT 28.2 % (36.0-46.0); HGB 9.4 g/dL (11.2-15.7); Immature Grans % 4.9; Lymphocytes % 22.1; MCH 30.3 pg (27.0-33.0); MCHC 33.3 % (32.0-36.0); MCV 91 fL (80-95); MPV 9.7 fL (8.0-11.0); Monocytes % 15.7; Platelet Count 257 10^3/uL (130-400); RDW 13.5 % (11.7-14.6); WBC 3.44 10^3/uL (4.4-10.8)
[2023-05-25 09:10] LABS: ALT 21 U/L (14-59); AST 21 U/L (15-37); Albumin 2.7 g/dL (3.4-5.0); Alkaline Phosphatase 67 U/L (46-116); Anion Gap 8.7 mmol/L (3-11); BUN 14 mg/dL (7-18); Bilirubin, Total 0.4 mg/dL (0.2-1.0); CO2 26.3 mmol/L (21.0-32.0); CREATININE 1.1 mg/dL (0.55-1.02); Calcium 9.4 mg/dL (8.5-10.1); Chloride 102 mmol/L (98-107); Glucose 122 mg/dL (74-106); Potassium 4.7 mmol/L (3.5-5.1); Sodium 137 mmol/L (136-145); Total Protein 6.5 g/dL (6.4-8.2); Vitamin B12 1397 pg/mL (193-986)
== END 2023-06-09 23:59 | disposition home or self-care (01) ==
LOC: INF 02:00
PROVIDERS: PCP Nurse Practitioner Family; Visit Provider Internal Medicine Hematology & Oncology
DX: C82.18 Follicular lymphoma grade II, lymph nodes of multiple sites (principal); Z45.2 Encounter for adjustment and management of vascular access device
CPT/HCPCS: 36591; 80053; 82784; 86850; 86900; 86901; 87798; 82607; 82728; 83010; 83615; 83735; 85025; 85045; 86880

== ENCOUNTER 2023-08-10 08:30 | Outpatient (RCR) | payer OTHER, SELFPAY ==
[2023-07-13] MEDS: Normal Saline Flush 10 ML SYR IVP (07:47)
[2023-07-13 08:23] LABS: Abs Immature Grans 0.05 10^3/uL (0.0-0.06); Absolute Basophil Count 0.03 10^3/uL (0.0-0.2); Absolute Eosinophil Count 0.17 10^3/uL (0.0-0.7); Absolute Lymphocyte Count 1.89 10^3/uL (1.2-3.4); Absolute Monocyte Count 0.58 10^3/uL (0.1-0.8); Absolute Neutrophil Count 2.39 10^3/uL (1.2-6.7); Basophils % 0.6; Eosinophils % 3.3; HCT 30.5 % (36.0-46.0); HGB 9.9 g/dL (11.2-15.7); MCH 31.2 pg (27.0-33.0); MCHC 32.5 % (32.0-36.0); MCV 96 fL (80-95); MPV 10.5 fL (8.0-11.0); Monocytes % 11.4; Neutrophils % 46.7; Platelet Count 226 10^3/uL (130-400); RBC 3.17 10^6/uL (3.93-5.22); RDW 15.7 % (11.7-14.6); WBC 5.11 10^3/uL (4.4-10.8)
[2023-07-13 08:44] LABS: ALT 32 U/L (14-59); AST 29 U/L (15-37); Albumin 3.5 g/dL (3.4-5.0); Alkaline Phosphatase 96 U/L (46-116); Anion Gap 10.6 mmol/L (3-11); BUN 22 mg/dL (7-18); Bilirubin, Total 0.5 mg/dL (0.2-1.0); CO2 27.4 mmol/L (21.0-32.0); CREATININE 0.9 mg/dL (0.55-1.02); Calcium 9.3 mg/dL (8.5-10.1); Chloride 102 mmol/L (98-107); Estimated GFR 66.67 (mL/min/1.73m2); Glucose 117 mg/dL (74-106); LDH 256 U/L (81-234); Sodium 140 mmol/L (136-145); Total Protein 6.6 g/dL (6.4-8.2)
[2023-07-14 09:28] LABS: IgA <13 mg/dL (85-499); IgG 409 mg/dL (610-1616); IgM <12 mg/dL (35-242)
[2023-08-10 09:25] LABS: Abs Immature Grans 0.09 10^3/uL (0.0-0.06); Absolute Basophil Count 0.06 10^3/uL (0.0-0.2); Absolute Eosinophil Count 0.23 10^3/uL (0.0-0.7); Absolute Lymphocyte Count 2.27 10^3/uL (1.2-3.4); Absolute Neutrophil Count 4.05 10^3/uL (1.2-6.7); Basophils % 0.8; Eosinophils % 3.2; HCT 32.5 % (36.0-46.0); HGB 10.7 g/dL (11.2-15.7); Immature Grans % 1.2; Lymphocytes % 31.1; MCH 31.2 pg (27.0-33.0); MCHC 32.9 % (32.0-36.0); MCV 95 fL (80-95); MPV 10.6 fL (8.0-11.0); Monocytes % 8.2; Neutrophils % 55.5; Platelet Count 253 10^3/uL (130-400); RBC 3.43 10^6/uL (3.93-5.22); RDW 13.3 % (11.7-14.6); RDW-SD 46.4 fL
[2023-08-10] MEDS: Normal Saline Flush 10 ML SYR IVP (09:53)
[2023-08-10 09:57] LABS: Iron 57 ug/dL (50-170); Total Iron Binding Capacity 340 ug/dL (250-450); Transferrin Sat 17 % (15-50)
[2023-08-10 10:19] LABS: ALT 31 U/L (14-59); AST 30 U/L (15-37); Albumin 3.5 g/dL (3.4-5.0); Alkaline Phosphatase 99 U/L (46-116); Anion Gap 9.8 mmol/L (3-11); BUN 16 mg/dL (7-18); Bilirubin, Total 0.4 mg/dL (0.2-1.0); CO2 28.2 mmol/L (21.0-32.0); CREATININE 0.9 mg/dL (0.55-1.02); Calcium 9.3 mg/dL (8.5-10.1); Chloride 101 mmol/L (98-107); Estimated GFR 66.67 (mL/min/1.73m2); Ferritin 138 ng/mL (8-252); Glucose 115 mg/dL (74-106); Sodium 139 mmol/L (136-145); Vitamin B12 1997 pg/mL (193-986)
[2023-08-10 10:31] LABS: LDH 307 U/L (81-234)
[2023-08-11 10:50] LABS: IgA <13 mg/dL (85-499); IgG 519 mg/dL (610-1616); IgM <12 mg/dL (35-242)
== END 2023-08-10 23:59 | disposition home or self-care (01) ==
LOC: INF 08:30
PROVIDERS: PCP Nurse Practitioner Family; Visit Provider Internal Medicine Hematology & Oncology
DX: D80.1 Nonfamilial hypogammaglobulinemia (principal); C82.18 Follicular lymphoma grade II, lymph nodes of multiple sites; D64.9 Anemia, unspecified
CPT/HCPCS: 36591; 80053; 82784; 82607; 82728; 83540; 83550; 83615; 83735; 85025

== ENCOUNTER 2023-09-13 02:54 | Outpatient (RCR) | payer OTHER, SELFPAY ==
[2023-09-13 07:58] LABS: Abs Immature Grans 0.09 10^3/uL (0.0-0.06); Absolute Basophil Count 0.05 10^3/uL (0.0-0.2); Absolute Eosinophil Count 0.17 10^3/uL (0.0-0.7); Absolute Lymphocyte Count 1.32 10^3/uL (1.2-3.4); Absolute Monocyte Count 0.58 10^3/uL (0.1-0.8); Absolute Neutrophil Count 4.21 10^3/uL (1.2-6.7); Basophils % 0.8; Eosinophils % 2.6; HCT 31.6 % (36.0-46.0); HGB 10.5 g/dL (11.2-15.7); Immature Grans % 1.4; Lymphocytes % 20.6; MCH 31.5 pg (27.0-33.0); MCHC 33.2 % (32.0-36.0); MCV 95 fL (80-95); Neutrophils % 65.6; Platelet Count 252 10^3/uL (130-400); RBC 3.33 10^6/uL (3.93-5.22); RDW-SD 44.9 fL; WBC 6.42 10^3/uL (4.4-10.8)
[2023-09-13 08:14] LABS: ALT 22 U/L (14-59); AST 20 U/L (15-37); Albumin 3.3 g/dL (3.4-5.0); Alkaline Phosphatase 105 U/L (46-116); Anion Gap 7.5 mmol/L (3-11); BUN 21 mg/dL (7-18); Bilirubin, Total 0.4 mg/dL (0.2-1.0); CO2 29.5 mmol/L (21.0-32.0); Chloride 100 mmol/L (98-107); Estimated GFR 58.75 (mL/min/1.73m2); Glucose 113 mg/dL (74-106); LDH 283 U/L (81-234); Potassium 4.1 mmol/L (3.5-5.1); Sodium 137 mmol/L (136-145); Total Protein 6.8 g/dL (6.4-8.2)
[2023-09-13 08:32] LABS: Iron 55 ug/dL (50-170); Total Iron Binding Capacity 328 ug/dL (250-450); Transferrin Sat 17 % (15-50)
[2023-09-13 08:52] LABS: Ferritin 77 ng/mL (8-252)
[2023-09-13 08:54] LABS: Vitamin B12 > 2000 pg/mL (193-986)
[2023-09-14 12:06] LABS: IgA <13 mg/dL (85-499); IgG 452 mg/dL (610-1616); IgM <12 mg/dL (35-242)
== END 2023-10-09 23:59 | disposition home or self-care (01) ==
LOC: INF 02:54
PROVIDERS: PCP Nurse Practitioner Family; Visit Provider Internal Medicine Hematology & Oncology
DX: D80.1 Nonfamilial hypogammaglobulinemia (principal); C82.18 Follicular lymphoma grade II, lymph nodes of multiple sites; D64.9 Anemia, unspecified
CPT/HCPCS: 36591; 80053; 82784; 82607; 82728; 83540; 83550; 83615; 85025

== ENCOUNTER 2023-10-25 10:30 | Outpatient (RCR) | payer OTHER, SELFPAY ==
[2023-10-11] MEDS: Normal Saline Flush 10 ML SYR IVP (07:35)
[2023-10-11 08:22] LABS: Abs Immature Grans 0.03 10^3/uL (0.0-0.06); Absolute Basophil Count 0.03 10^3/uL (0.0-0.2); Absolute Eosinophil Count 0.16 10^3/uL (0.0-0.7); Absolute Lymphocyte Count 1.38 10^3/uL (1.2-3.4); Absolute Monocyte Count 0.46 10^3/uL (0.1-0.8); Absolute Neutrophil Count 2.32 10^3/uL (1.2-6.7); Basophils % 0.7; Eosinophils % 3.7; HCT 32.7 % (36.0-46.0); HGB 10.8 g/dL (11.2-15.7); Immature Grans % 0.7; Lymphocytes % 31.5; MCH 30.9 pg (27.0-33.0); MCV 94 fL (80-95); MPV 10.3 fL (8.0-11.0); Monocytes % 10.5; Neutrophils % 52.9; Platelet Count 215 10^3/uL (130-400); RBC 3.49 10^6/uL (3.93-5.22); RDW 13.4 % (11.7-14.6); RDW-SD 46.1 fL; WBC 4.38 10^3/uL (4.4-10.8)
[2023-10-11 09:04] LABS: Iron 96 ug/dL (50-170); Total Iron Binding Capacity 339 ug/dL (250-450); Transferrin Sat 28 % (15-50)
[2023-10-11 09:11] LABS: ALT 23 U/L (14-59); AST 22 U/L (15-37); Albumin 3.4 g/dL (3.4-5.0); Alkaline Phosphatase 100 U/L (46-116); Anion Gap 9.6 mmol/L (3-11); BUN 23 mg/dL (7-18); Bilirubin, Total 0.4 mg/dL (0.2-1.0); CO2 29.4 mmol/L (21.0-32.0); CREATININE 0.8 mg/dL (0.55-1.02); Chloride 104 mmol/L (98-107); Estimated GFR 76.79 (mL/min/1.73m2); Ferritin 73 ng/mL (8-252); Glucose 105 mg/dL (74-106); Potassium 4.1 mmol/L (3.5-5.1); Sodium 143 mmol/L (136-145); Total Protein 6.7 g/dL (6.4-8.2); Vitamin B12 > 2000 pg/mL (193-986)
[2023-10-11 09:23] LABS: LDH 275 U/L (81-234)
[2023-10-12 10:48] LABS: IgA <13 mg/dL (85-499); IgG 527 mg/dL (610-1616); IgM <12 mg/dL (35-242)
[2023-10-25] MEDS: Normal Saline Flush 10 ML SYR IVP (10:29)
[2023-10-25 10:38] LABS: Abs Immature Grans 0.02 10^3/uL (0.0-0.06); Absolute Basophil Count 0.04 10^3/uL (0.0-0.2); Absolute Lymphocyte Count 1.47 10^3/uL (1.2-3.4); Absolute Monocyte Count 0.46 10^3/uL (0.1-0.8); Basophils % 0.8; HCT 32.5 % (36.0-46.0); HGB 10.7 g/dL (11.2-15.7); Immature Grans % 0.4; Lymphocytes % 30.1; MCH 30.8 pg (27.0-33.0); MCHC 32.9 % (32.0-36.0); MCV 94 fL (80-95); MPV 10.1 fL (8.0-11.0); Monocytes % 9.4; Neutrophils % 57.3; Platelet Count 222 10^3/uL (130-400); RBC 3.47 10^6/uL (3.93-5.22); RDW 13.8 % (11.7-14.6); WBC 4.89 10^3/uL (4.4-10.8)
[2023-10-25 11:00] LABS: Iron 89 ug/dL (50-170); Total Iron Binding Capacity 349 ug/dL (250-450); Transferrin Sat 26 % (15-50)
[2023-10-25 11:39] LABS: ALT 26 U/L (14-59); AST 25 U/L (15-37); Albumin 3.6 g/dL (3.4-5.0); Alkaline Phosphatase 112 U/L (46-116); Anion Gap 8.1 mmol/L (3-11); BUN 21 mg/dL (7-18); Bilirubin, Total 0.4 mg/dL (0.2-1.0); CO2 27.9 mmol/L (21.0-32.0); CREATININE 0.9 mg/dL (0.55-1.02); Calcium 8.8 mg/dL (8.5-10.1); Chloride 104 mmol/L (98-107); Estimated GFR 66.67 (mL/min/1.73m2); Ferritin 86 ng/mL (8-252); Glucose 98 mg/dL (74-106); LDH 241 U/L (81-234); Potassium 4.1 mmol/L (3.5-5.1); Sodium 140 mmol/L (136-145); Total Protein 7.1 g/dL (6.4-8.2)
[2023-10-25 11:40] LABS: Vitamin B12 > 2000 pg/mL (193-986)
[2023-10-26 10:22] LABS: IgA <13 mg/dL (85-499); IgG 639 mg/dL (610-1616); IgM <12 mg/dL (35-242)
[2023-10-26 13:55] LABS: Magnesium 2.4 mg/dL (1.8-2.4)
== END 2023-11-08 23:59 | disposition home or self-care (01) ==
LOC: INF 10:30
PROVIDERS: Nurse Practitioner Adult Health; PCP Nurse Practitioner Family; Visit Provider Internal Medicine Hematology & Oncology
DX: C82.18 Follicular lymphoma grade II, lymph nodes of multiple sites (principal); D80.1 Nonfamilial hypogammaglobulinemia; D64.9 Anemia, unspecified; Z45.2 Encounter for adjustment and management of vascular access device
CPT/HCPCS: 36591; 80053; 82784; 82607; 82728; 83540; 83550; 83615; 83735; 85025

== ENCOUNTER 2024-02-24 01:24 | Outpatient (RCR) | payer MEDICARE, OTHER, SELFPAY ==
[2024-02-24 11:14] LABS: Absolute Basophil Count 0.04 10^3/uL (0.0-0.2); Absolute Eosinophil Count 0.15 10^3/uL (0.0-0.7); Absolute Lymphocyte Count 1.07 10^3/uL (1.2-3.4); Absolute Monocyte Count 0.34 10^3/uL (0.1-0.8); Absolute Neutrophil Count 3.03 10^3/uL (1.2-6.7); Basophils % 0.8 %; Eosinophils % 3.2 %; HCT 33.7 % (36.0-46.0); HGB 11.1 g/dL (11.2-15.7); Immature Grans % 2.1 %; Lymphocytes % 22.6 %; MCH 32.6 pg (27.0-33.0); MCHC 32.9 % (32.0-36.0); MCV 99 fL (80-95); MPV 10.1 fL (8.0-11.0); Monocytes % 7.2 %; Neutrophils % 64.1 %; Platelet Count 219 10^3/uL (130-400); RDW 14.2 % (11.7-14.6); RDW-SD 51.8 fL; WBC 4.73 10^3/uL (4.4-10.8)
[2024-02-24] MEDS: Normal Saline Flush 10 ML SYR IVP (11:19)
[2024-02-24 11:32] LABS: ALT 27 U/L (14-59); AST 21 U/L (15-37); Albumin 3.7 g/dL (3.4-5.0); Alkaline Phosphatase 91 U/L (46-116); BUN 24 mg/dL (7-18); Bilirubin, Total 0.43 mg/dL (0.2-1.0); CREATININE 0.9 mg/dL (0.55-1.02); Calcium 9.2 mg/dL (8.5-10.1); Chloride 107 mmol/L (98-107); Estimated GFR 66.67 (mL/min/1.73m2); Glucose 107 mg/dL (74-106); LDH 277 U/L (81-234); Magnesium 1.9 mg/dL (1.8-2.4); Potassium 3.9 mmol/L (3.5-5.1); Sodium 141 mmol/L (136-145); Total Protein 6.4 g/dL (6.4-8.2)
[2024-02-24 11:44] LABS: Iron 87 ug/dL (50-170); Total Iron Binding Capacity 336 ug/dL (250-450); Transferrin Sat 26 % (15-50)
[2024-02-24 12:13] LABS: Ferritin 70 ng/mL (8-252)
[2024-02-24 12:14] LABS: Vitamin B12 > 2000 pg/mL (193-986)
[2024-02-27 09:32] LABS: IgG 261 mg/dL (610-1616)
== END 2024-03-10 23:59 | disposition home or self-care (01) ==
LOC: INF 01:24
PROVIDERS: Nurse Practitioner Adult Health; PCP Nurse Practitioner Family; Visit Provider Internal Medicine Hematology & Oncology
DX: C82.18 Follicular lymphoma grade II, lymph nodes of multiple sites (principal); D80.1 Nonfamilial hypogammaglobulinemia; D64.9 Anemia, unspecified; Z45.2 Encounter for adjustment and management of vascular access device
CPT/HCPCS: 36591; 80053; 82784; 82607; 82728; 83540; 83550; 83615; 83735; 85025

== ENCOUNTER 2024-04-25 03:09 | Outpatient (RCR) | payer MEDICARE, OTHER, SELFPAY ==
[2024-04-25] MEDS: Normal Saline Flush 10 ML SYR IVP (09:19)
[2024-04-25 09:28] LABS: CREATININE 0.9 mg/dL (0.55-1.02); Estimated GFR 66.26 (mL/min/1.73m2)
[2024-04-26 11:20] LABS: IgG 379 mg/dL (610-1616)
== END 2024-05-10 23:59 | disposition home or self-care (01) ==
LOC: INF 03:09
PROVIDERS: Nurse Practitioner Adult Health; PCP Nurse Practitioner Family; Visit Provider Internal Medicine Hematology & Oncology
DX: C82.18 Follicular lymphoma grade II, lymph nodes of multiple sites (principal); D80.1 Nonfamilial hypogammaglobulinemia; Z45.2 Encounter for adjustment and management of vascular access device
CPT/HCPCS: 36591; 82784; 82565

== ENCOUNTER 2024-05-23 01:43 | Outpatient (RCR) | payer MEDICARE, OTHER, SELFPAY ==
[2024-05-23 10:41] LABS: CREATININE 0.9 mg/dL (0.55-1.02); Estimated GFR 66.26 (mL/min/1.73m2)
[2024-05-23] MEDS: Normal Saline Flush 10 ML SYR IVP (11:59)
[2024-05-24 09:32] LABS: IgG 496 mg/dL (610-1616)
== END 2024-06-09 23:59 | disposition home or self-care (01) ==
LOC: INF 01:43
PROVIDERS: Nurse Practitioner Adult Health; PCP Nurse Practitioner Family; Visit Provider Internal Medicine Hematology & Oncology
DX: D80.1 Nonfamilial hypogammaglobulinemia (principal); Z45.2 Encounter for adjustment and management of vascular access device
CPT/HCPCS: 36591; 82784; 82565

== ENCOUNTER 2024-06-20 02:13 | Outpatient (RCR) | payer MEDICARE, OTHER, SELFPAY ==
[2024-06-20] MEDS: Normal Saline Flush 10 ML SYR IVP (09:28)
[2024-06-20 09:56] LABS: Estimated GFR 58.39 (mL/min/1.73m2)
[2024-06-21 11:09] LABS: IgG 562 mg/dL (610-1616)
== END 2024-07-10 23:59 | disposition home or self-care (01) ==
LOC: INF 02:13
PROVIDERS: Nurse Practitioner Adult Health; PCP Nurse Practitioner Family; Visit Provider Internal Medicine Hematology & Oncology
DX: D80.1 Nonfamilial hypogammaglobulinemia (principal); Z45.2 Encounter for adjustment and management of vascular access device
CPT/HCPCS: 36591; 82784; 82565

== ENCOUNTER 2024-07-18 03:45 | Outpatient (RCR) | payer MEDICARE, OTHER, SELFPAY ==
[2024-07-18] MEDS: Normal Saline Flush 10 ML SYR IVP (09:10)
[2024-07-18 09:31] LABS: Abs Immature Grans 0.05 10^3/uL (0.0-0.06); Absolute Basophil Count 0.05 10^3/uL (0.0-0.2); Absolute Eosinophil Count 0.26 10^3/uL (0.0-0.7); Absolute Lymphocyte Count 1.83 10^3/uL (1.2-3.4); Absolute Monocyte Count 0.41 10^3/uL (0.1-0.8); Absolute Neutrophil Count 2.33 10^3/uL (1.2-6.7); Eosinophils % 5.3 %; HCT 33.6 % (36.0-46.0); HGB 11.1 g/dL (11.2-15.7); Lymphocytes % 37.1 %; MCH 31.9 pg (27.0-33.0); MCV 97 fL (80-95); MPV 10.6 fL (8.0-11.0); Monocytes % 8.3 %; Neutrophils % 47.3 %; Platelet Count 204 10^3/uL (130-400); RBC 3.48 10^6/uL (3.93-5.22); RDW 13.2 % (11.7-14.6); RDW-SD 46.9 fL; WBC 4.93 10^3/uL (4.4-10.8)
[2024-07-18 09:45] LABS: Iron 78 ug/dL (50-170); Total Iron Binding Capacity 319 ug/dL (250-450); Transferrin Sat 24 % (15-50)
[2024-07-18 10:14] LABS: ALT 29 U/L (14-59); AST 25 U/L (15-37); Albumin 3.6 g/dL (3.4-5.0); Alkaline Phosphatase 105 U/L (46-116); Anion Gap 9.5 mmol/L (3-11); BUN 24 mg/dL (7-18); Bilirubin, Total 0.51 mg/dL (0.2-1.0); CO2 28.5 mmol/L (21.0-32.0); CREATININE 0.9 mg/dL (0.55-1.02); Chloride 106 mmol/L (98-107); Estimated GFR 66.26 (mL/min/1.73m2); Ferritin 93 ng/mL (8-252); Glucose 100 mg/dL (74-106); Magnesium 2.3 mg/dL (1.8-2.4); Potassium 4.2 mmol/L (3.5-5.1); Sodium 144 mmol/L (136-145); Total Protein 6.7 g/dL (6.4-8.2); Vitamin B12 1701 pg/mL (193-986)
[2024-07-19 10:32] LABS: IgG 560 mg/dL (610-1616)
== END 2024-08-10 23:59 | disposition home or self-care (01) ==
LOC: INF 03:45
PROVIDERS: Nurse Practitioner Adult Health; PCP Nurse Practitioner Family; Visit Provider Internal Medicine Hematology & Oncology
DX: D50.0 Iron deficiency anemia secondary to blood loss (chronic) (principal); C82.18 Follicular lymphoma grade II, lymph nodes of multiple sites; D80.1 Nonfamilial hypogammaglobulinemia
CPT/HCPCS: 36591; 80053; 82784; 82607; 82728; 83540; 83550; 83735; 85025

== ENCOUNTER 2024-08-15 00:50 | Outpatient (RCR) | payer MEDICARE, OTHER, SELFPAY ==
[2024-08-15] MEDS: Normal Saline Flush 10 ML SYR IVP (11:54)
[2024-08-15 12:01] LABS: Abs Immature Grans 0.11 10^3/uL (0.0-0.06); Absolute Basophil Count 0.04 10^3/uL (0.0-0.2); Absolute Eosinophil Count 0.13 10^3/uL (0.0-0.7); Absolute Lymphocyte Count 1.63 10^3/uL (1.2-3.4); Absolute Monocyte Count 0.45 10^3/uL (0.1-0.8); Basophils % 0.8 %; Eosinophils % 2.5 %; HCT 34.1 % (36.0-46.0); HGB 11.3 g/dL (11.2-15.7); Immature Grans % 2.1 %; Lymphocytes % 31.6 %; MCH 31.9 pg (27.0-33.0); MCHC 33.1 % (32.0-36.0); MCV 96 fL (80-95); MPV 10.3 fL (8.0-11.0); Monocytes % 8.7 %; Neutrophils % 54.3 %; Platelet Count 203 10^3/uL (130-400); RBC 3.54 10^6/uL (3.93-5.22); RDW 13.1 % (11.7-14.6); RDW-SD 46.7 fL; WBC 5.16 10^3/uL (4.4-10.8)
[2024-08-15 12:44] LABS: ALT 41 U/L (14-59); AST 34 U/L (15-37); Albumin 3.8 g/dL (3.4-5.0); Alkaline Phosphatase 115 U/L (46-116); Anion Gap 7.5 mmol/L (3-11); BUN 21 mg/dL (7-18); Bilirubin, Total 0.55 mg/dL (0.2-1.0); CO2 27.5 mmol/L (21.0-32.0); Calcium 9.1 mg/dL (8.5-10.1); Chloride 99 mmol/L (98-107); Estimated GFR 58.39 (mL/min/1.73m2); Ferritin 100 ng/mL (8-252); Glucose 109 mg/dL (74-106); Potassium 4.1 mmol/L (3.5-5.1); Sodium 134 mmol/L (136-145); Total Protein 7.2 g/dL (6.4-8.2); Vitamin B12 1254 pg/mL (193-986)
[2024-08-15 13:34] LABS: Iron 99 ug/dL (50-170); Total Iron Binding Capacity 348 ug/dL (250-450); Transferrin Sat 28 % (15-50)
[2024-08-16 10:36] LABS: IgG 654 mg/dL (610-1616)
== END 2024-09-07 23:59 | disposition home or self-care (01) ==
LOC: INF 00:50
PROVIDERS: Nurse Practitioner Adult Health; PCP Nurse Practitioner Family; Visit Provider Internal Medicine Hematology & Oncology
DX: D50.0 Iron deficiency anemia secondary to blood loss (chronic) (principal); C82.18 Follicular lymphoma grade II, lymph nodes of multiple sites
CPT/HCPCS: 36591; 80053; 82784; 82607; 82728; 83540; 83550; 83735; 85025

== ENCOUNTER 2024-09-12 02:46 | Outpatient (RCR) | payer MEDICARE, OTHER, SELFPAY ==
[2024-09-12] MEDS: Normal Saline Flush 10 ML SYR IVP (09:15)
[2024-09-12 09:27] LABS: Abs Immature Grans 0.02 10^3/uL (0.0-0.06); Absolute Basophil Count 0.03 10^3/uL (0.0-0.2); Absolute Eosinophil Count 0.12 10^3/uL (0.0-0.7); Absolute Lymphocyte Count 1.86 10^3/uL (1.2-3.4); Absolute Neutrophil Count 2.48 10^3/uL (1.2-6.7); Basophils % 0.6 %; Eosinophils % 2.4 %; HCT 33.2 % (36.0-46.0); HGB 11.2 g/dL (11.2-15.7); Immature Grans % 0.4 %; Lymphocytes % 37.1 %; MCH 31.7 pg (27.0-33.0); MCHC 33.7 % (32.0-36.0); MCV 94 fL (80-95); Neutrophils % 49.5 %; Platelet Count 195 10^3/uL (130-400); RBC 3.53 10^6/uL (3.93-5.22); RDW 12.8 % (11.7-14.6); RDW-SD 44.2 fL; WBC 5.01 10^3/uL (4.4-10.8)
[2024-09-12 09:52] LABS: Iron 85 ug/dL (50-170); Total Iron Binding Capacity 330 ug/dL (250-450); Transferrin Sat 26 % (15-50)
[2024-09-12 10:10] LABS: ALT 33 U/L (14-59); AST 29 U/L (15-37); Albumin 3.9 g/dL (3.4-5.0); Alkaline Phosphatase 108 U/L (46-116); Anion Gap 8.3 mmol/L (3-11); BUN 20 mg/dL (7-18); Bilirubin, Total 0.58 mg/dL (0.2-1.0); CO2 27.7 mmol/L (21.0-32.0); CREATININE 1.3 mg/dL (0.55-1.02); Chloride 100 mmol/L (98-107); Estimated GFR 42.62 (mL/min/1.73m2); Ferritin 213 ng/mL (8-252); Glucose 100 mg/dL (74-106); Magnesium 2.4 mg/dL (1.8-2.4); Potassium 4.6 mmol/L (3.5-5.1); Sodium 136 mmol/L (136-145); Vitamin B12 1899 pg/mL (193-986)
[2024-09-12 10:24] LABS: LDH 235 U/L (81-234)
[2024-09-13 09:50] LABS: IgG 646 mg/dL (610-1616)
== END 2024-10-08 23:59 | disposition home or self-care (01) ==
LOC: INF 02:46
PROVIDERS: Nurse Practitioner Adult Health; PCP Nurse Practitioner Family; Visit Provider Internal Medicine Hematology & Oncology
DX: C82.18 Follicular lymphoma grade II, lymph nodes of multiple sites (principal); D50.0 Iron deficiency anemia secondary to blood loss (chronic); D80.1 Nonfamilial hypogammaglobulinemia
CPT/HCPCS: 36591; 80053; 82784; 82607; 82728; 83540; 83550; 83615; 83735; 85025

== ENCOUNTER 2024-10-10 02:37 | Outpatient (RCR) | payer MEDICARE, OTHER, SELFPAY ==
[2024-10-10] MEDS: Normal Saline Flush 10 ML SYR IVP (08:48)
[2024-10-10 08:50] LABS: Abs Immature Grans 0.05 10^3/uL (0.0-0.06); Absolute Basophil Count 0.04 10^3/uL (0.0-0.2); Absolute Eosinophil Count 0.14 10^3/uL (0.0-0.7); Absolute Lymphocyte Count 2.11 10^3/uL (1.2-3.4); Absolute Monocyte Count 0.54 10^3/uL (0.1-0.8); Absolute Neutrophil Count 2.77 10^3/uL (1.2-6.7); Basophils % 0.7 %; Eosinophils % 2.5 %; HCT 33.1 % (36.0-46.0); HGB 11.1 g/dL (11.2-15.7); Immature Grans % 0.9 %; Lymphocytes % 37.3 %; MCH 31.9 pg (27.0-33.0); MCHC 33.5 % (32.0-36.0); MCV 95 fL (80-95); MPV 10.7 fL (8.0-11.0); Monocytes % 9.6 %; Platelet Count 206 10^3/uL (130-400); RBC 3.48 10^6/uL (3.93-5.22); RDW 13.4 % (11.7-14.6); RDW-SD 46.9 fL; WBC 5.65 10^3/uL (4.4-10.8)
[2024-10-10 09:09] LABS: Iron 74 ug/dL (50-170); Total Iron Binding Capacity 310 ug/dL (250-450); Transferrin Sat 24 % (15-50)
[2024-10-10 09:36] LABS: ALT 36 U/L (14-59); AST 28 U/L (15-37); Albumin 3.9 g/dL (3.4-5.0); Alkaline Phosphatase 113 U/L (46-116); Anion Gap 11.8 mmol/L (3-11); BUN 26 mg/dL (7-18); Bilirubin, Total 0.5 mg/dL (0.2-1.0); CO2 27.2 mmol/L (21.0-32.0); CREATININE 1.1 mg/dL (0.55-1.02); Calcium 9.4 mg/dL (8.5-10.1); Chloride 100 mmol/L (98-107); Estimated GFR 52.08 (mL/min/1.73m2); Ferritin 159 ng/mL (8-252); Glucose 90 mg/dL (74-106); Magnesium 2.2 mg/dL (1.8-2.4); Sodium 139 mmol/L (136-145); Total Protein 7.1 g/dL (6.4-8.2); Vitamin B12 889 pg/mL (193-986)
[2024-10-10 09:48] LABS: LDH 251 U/L (81-234)
[2024-10-11 09:03] LABS: IgG 640 mg/dL (610-1616)
== END 2024-11-07 23:59 | disposition home or self-care (01) ==
LOC: INF 02:37
PROVIDERS: Nurse Practitioner Adult Health; PCP Nurse Practitioner Family; Visit Provider Internal Medicine Hematology & Oncology
DX: C82.18 Follicular lymphoma grade II, lymph nodes of multiple sites (principal); D80.1 Nonfamilial hypogammaglobulinemia
CPT/HCPCS: 36591; 80053; 82784; 82607; 82728; 83540; 83550; 83615; 83735; 85025

== ENCOUNTER 2025-02-15 01:01 | Outpatient (RCR) | payer MEDICARE, OTHER, SELFPAY ==
[2025-02-15] MEDS: Normal Saline Flush 10 ML SYR IVP (09:45)
[2025-02-15 10:23] LABS: ALT 47 U/L (14-59); AST 32 U/L (15-37); Albumin 4.0 g/dL (3.4-5.0); Alkaline Phosphatase 101 U/L (46-116); Anion Gap 8.7 mmol/L (3-11); BUN 25 mg/dL (7-18); Bilirubin, Total 0.5 mg/dL (0.2-1.0); CO2 28.3 mmol/L (21.0-32.0); Calcium 9.2 mg/dL (8.5-10.1); Chloride 97 mmol/L (98-107); Estimated GFR 66.26 (mL/min/1.73m2); Glucose 112 mg/dL (74-106); Potassium 4.1 mmol/L (3.5-5.1); Sodium 134 mmol/L (136-145); Total Protein 6.9 g/dL (6.4-8.2)
== END 2025-03-10 23:59 | disposition home or self-care (01) ==
LOC: INF 01:01
PROVIDERS: Nurse Practitioner Adult Health; PCP Nurse Practitioner Family; Visit Provider Internal Medicine Hematology & Oncology
DX: C82.18 Follicular lymphoma grade II, lymph nodes of multiple sites (principal); D80.1 Nonfamilial hypogammaglobulinemia; Z45.2 Encounter for adjustment and management of vascular access device
CPT/HCPCS: 36591; 80053; 82784

== ENCOUNTER 2025-03-27 03:18 | Outpatient (RCR) | payer MEDICARE, OTHER, SELFPAY ==
[2025-03-27 10:09] LABS: Abs Immature Grans 0.05 10^3/uL (0.0-0.06); HCT 30.5 % (36.0-46.0); HGB 10.2 g/dL (11.2-15.7); Immature Grans % 1.1 %; MCH 32.1 pg (27.0-33.0); MCHC 33.4 % (32.0-36.0); MCV 96 fL (80-95); MPV 9.8 fL (8.0-11.0); Platelet Count 246 10^3/uL (130-400); RBC 3.18 10^6/uL (3.93-5.22); RDW 15.3 % (11.7-14.6); RDW-SD 54.4 fL; WBC 4.75 10^3/uL (4.4-10.8)
[2025-03-27 10:29] LABS: Iron 74 ug/dL (50-170); Total Iron Binding Capacity 338 ug/dL (250-450); Transferrin Sat 22 % (15-50)
[2025-03-27] MEDS: Normal Saline Flush 10 ML SYR IVP (10:32)
[2025-03-27 10:38] LABS: ALT 34 U/L (14-59); AST 21 U/L (15-37); Albumin 3.9 g/dL (3.4-5.0); Alkaline Phosphatase 108 U/L (46-116); Anion Gap 7.6 mmol/L (3-11); BUN 17 mg/dL (7-18); Bilirubin, Total 0.6 mg/dL (0.2-1.0); CO2 29.4 mmol/L (21.0-32.0); Calcium 9.3 mg/dL (8.5-10.1); Chloride 96 mmol/L (98-107); Ferritin 200 ng/mL (8-252); Glucose 109 mg/dL (74-106); Potassium 4.1 mmol/L (3.5-5.1); Sodium 133 mmol/L (136-145); Total Protein 6.8 g/dL (6.4-8.2)
[2025-03-27 11:01] LABS: LDH 282 U/L (81-234)
[2025-03-27 11:42] LABS: Magnesium 2.3 mg/dL (1.8-2.4)
== END 2025-04-09 23:59 | disposition home or self-care (01) ==
LOC: INF 03:18
PROVIDERS: Nurse Practitioner Adult Health; PCP Nurse Practitioner Family; Visit Provider Internal Medicine Hematology & Oncology
DX: C82.18 Follicular lymphoma grade II, lymph nodes of multiple sites (principal); Z45.2 Encounter for adjustment and management of vascular access device
CPT/HCPCS: 36591; 80053; 82784; 82728; 83540; 83550; 83615; 83735; 85025

== ENCOUNTER 2025-04-24 01:55 | Outpatient (RCR) | payer MEDICARE, OTHER, SELFPAY ==
[2025-04-24] MEDS: Normal Saline Flush 10 ML SYR IVP (13:00)
[2025-04-24 13:20] LABS: ALT 47 U/L (14-59); AST 30 U/L (15-37); Albumin 3.7 g/dL (3.4-5.0); Alkaline Phosphatase 98 U/L (46-116); Anion Gap 11.4 mmol/L (3-11); BUN 17 mg/dL (7-18); Bilirubin, Total 0.4 mg/dL (0.2-1.0); CO2 24.6 mmol/L (21.0-32.0); Calcium 8.9 mg/dL (8.5-10.1); Chloride 93 mmol/L (98-107); Glucose 96 mg/dL (74-106); Magnesium 2.0 mg/dL (1.8-2.4); Potassium 4.0 mmol/L (3.5-5.1); Sodium 129 mmol/L (136-145); Total Protein 6.8 g/dL (6.4-8.2)
[2025-04-25 11:20] LABS: Cholesterol 175 mg/dL (<200); HDL Cholesterol 82 mg/dL (>or=50); TSH 1.57 uIU/mL (0.36-3.74)
== END 2025-05-10 23:59 | disposition home or self-care (01) ==
LOC: INF 01:55
PROVIDERS: PCP Nurse Practitioner Family; Visit Provider Internal Medicine Hematology & Oncology
DX: E78.5 Hyperlipidemia, unspecified (principal); R73.9 Hyperglycemia, unspecified; Z00.00 Encounter for general adult medical examination without abnormal findings
CPT/HCPCS: 36591; 80053; 80061; 82784; 83735; 84443

== ENCOUNTER 2025-06-19 00:29 | Outpatient (RCR) | payer MEDICARE, OTHER, SELFPAY ==
[2025-06-19] MEDS: Normal Saline Flush 10 ML SYR IVP (10:20)
[2025-06-19 10:40] LABS: Abs Immature Grans 0.05 10^3/uL (0.0-0.06); HCT 33.1 % (36.0-46.0); HGB 11.1 g/dL (11.2-15.7); Immature Grans % 1.1 %; MCH 30.7 pg (27.0-33.0); MCHC 33.5 % (32.0-36.0); MCV 92 fL (80-95); MPV 10.6 fL (8.0-11.0); Platelet Count 210 10^3/uL (130-400); RBC 3.61 10^6/uL (3.93-5.22); RDW 13.6 % (11.7-14.6); RDW-SD 46.8 fL; WBC 4.43 10^3/uL (4.4-10.8)
[2025-06-19 11:02] LABS: Iron 95 ug/dL (50-170); Total Iron Binding Capacity 322 ug/dL (250-425); Transferrin Sat 30 % (15-50)
[2025-06-19 11:04] LABS: LDH 259 U/L (120-246)
[2025-06-19 11:05] LABS: Magnesium 1.7 mg/dL (1.6-2.6)
[2025-06-19 11:07] LABS: ALT 26 U/L (10-49); AST 34 U/L (<34); Albumin 4.3 g/dL (3.2-5.0); Alkaline Phosphatase 101 U/L (46-116); Anion Gap 9.2 mmol/L (3-11); BUN 20 mg/dL (9-23); Bilirubin, Total 0.4 mg/dL (0.2-1.2); CO2 28.8 mmol/L (20.0-31.0); Calcium 9.2 mg/dL (8.3-10.6); Chloride 101 mmol/L (98-107); Ferritin 70 ng/mL (7-271); Glucose 101 mg/dL (74-106); Potassium 3.6 mmol/L (3.5-5.1); Sodium 139 mmol/L (136-145); Total Protein 6.8 g/dL (5.7-8.2); Vitamin B12 735 pg/mL (211-911)
== END 2025-07-10 23:59 | disposition home or self-care (01) ==
LOC: INF 00:29
PROVIDERS: Nurse Practitioner Adult Health; PCP Nurse Practitioner Family; Visit Provider Internal Medicine Hematology & Oncology
DX: D50.0 Iron deficiency anemia secondary to blood loss (chronic) (principal); C82.18 Follicular lymphoma grade II, lymph nodes of multiple sites; Z45.2 Encounter for adjustment and management of vascular access device
CPT/HCPCS: 36591; 80053; 82784; 82607; 82728; 83540; 83550; 83615; 83735; 85025